=== PATIENT | female | born 1980 | race Two or more races ===

== ENCOUNTER 2020-01-23 09:51 | Outpatient (REF) | payer MEDICAID, OTHER, SELFPAY ==
--- NOTE | 2020-01-23 | XR_ITS ---
EXAMINATION: XR CHEST CLINICAL INFORMATION: Preop. COMPARISON: None TECHNIQUE: 2 views of the chest were obtained. FINDINGS: No significant abnormality is noted involving the heart, lungs, mediastinum, bony thorax or soft tissues. XR/XR chest 2V IMPRESSION: Unremarkable chest exam.
[2020-01-23 10:41] LABS: MANUAL DIFF FLAG NO
--- NOTE | 2020-01-23 10:43 | ECG_ITS ---
Test Reason : PREOP Blood Pressure : / mmHG Vent. Rate : 059 BPM Atrial Rate : 059 BPM P-R Int : 150 ms QRS Dur : 078 ms QT Int : 386 ms P-R-T Axes : -13 066 049 degrees QTc Int : 382 ms Sinus bradycardia with marked sinus arrhythmia Borderline ECG When compared with ECG of 07-FEB-2019 19:54, No significant change was found Referred By: Mauricio Thomson Electronically Signed By:HUGH BIRD MD
[2020-01-23 10:50] LABS: Basophils Percent Auto 0.4 % (0-2); Eosinophils Percent Auto 0.2 % (0-4); Hematocrit 37.6 % (37-47); Hemoglobin 12.8 g/dl (12.0-16.0); Imm Gran Abs Auto 0.01 X10*3/uL (0.00-0.03); Imm Gran Pct Auto 0.2 % (0.0-0.4); Lymphocytes Absolute Auto 2.4 X10*3/uL (1.2-4.9); Lymphocytes Percent Auto 45.8 % (20-40); Mean Corpuscular Hemoglobin 30.4 pg (27.0-33.0); Mean Corpuscular Volume 89.3 fL (80-98); Mean Platelet Volume 9.5 fL (9.4-12.3); Monocytes Absolute Auto 0.3 X10*3/uL (0.1-1.2); Monocytes Percent Auto 6.5 % (2-11); Neutrophils Absolute Auto 2.5 X10*3/uL (2.0-8.3); Neutrophils Percent Auto 46.9 % (45-73); Platelet Count 240 X10*3/uL (160-400); Red Blood Count 4.21 X10*6/uL (4.20-5.50); Red Cell Distribution Width 12.5 % (11.0-16.0); White Blood Count 5.3 X10*3/uL (4.8-10.8)
[2020-01-23 11:03] LABS: Partial Thromboplastin Time 38.7 SEC (24.1-38.0)
[2020-01-23 11:12] LABS: Anion Gap 12 (12-20); Blood Urea Nitrogen 11 mg/dL (9-16); Carbon Dioxide 24 mmol/L (22-29); Chloride 106 mmol/L (96-108); Estimated Glomerular Filt Rate > 60; Glucose Random 100 mg/dL (60-115); Potassium 3.8 mmol/l (3.3-5.1); Sodium 138 mmol/L (135-145)
[2020-01-23 11:34] LABS: SARS COV2 IgG Negative (Negative)
[2020-01-23 11:35] LABS: HIV AB/AG Nonreactive (Nonreactive)
[2020-01-23 11:37] LABS: HCG Quantitative < 2 mIU/mL; T4 Thyroxine 5.8 ug/dL (4.5-12.0); Thyroid Stimulating Hormone 1.69 mIU/mL (0.32-4.0)
[2020-01-24 17:17] LABS: T3 Uptake 34 % (22-35)
== END 2020-01-23 09:52 | disposition home or self-care (01) ==
LOC: HO.LAB 09:51
PROVIDERS: Visit Provider Otolaryngology
DX: Z01.818 Encounter for other preprocedural examination (principal); R00.1 Bradycardia, unspecified
CPT/HCPCS: 36415; 71046; 80048; 84436; 84443; 84479; 84702; 85025; 85610; 85730; 86769; 87389; 93005

== ENCOUNTER 2020-02-14 06:43 | Outpatient (REF) | payer MEDICAID, SELFPAY | END 2020-02-14 06:44 | disposition home or self-care (01) | LOC: HO.LAB 06:43 | PROVIDERS: Visit Provider Internal Medicine | DX: Z20.828 Contact with and (suspected) exposure to other viral communicable diseases (principal) | CPT/HCPCS: C9803; U0003 ==

== ENCOUNTER 2020-07-20 12:52 | Outpatient (REF) | payer MEDICAID, SELFPAY | END 2020-07-20 12:53 | disposition home or self-care (01) | LOC: HO.LAB 12:52 | PROVIDERS: Visit Provider Internal Medicine | DX: Z20.822 Contact with and (suspected) exposure to COVID-19 (principal) | CPT/HCPCS: C9803; U0003; U0005 ==

== ENCOUNTER → 2020-10-02 15:04 | Outpatient (BNVA) | payer MEDICAID, SELFPAY | PROVIDERS: PCP Emergency Medicine; Visit Provider Nurse Practitioner ==

== ENCOUNTER → 2020-11-13 09:17 | Outpatient (BNVA) | payer MEDICAID, SELFPAY | PROVIDERS: PCP Emergency Medicine; Visit Provider Nurse Practitioner ==

== ENCOUNTER → 2020-12-08 12:38 | Outpatient (BNVA) | payer MEDICAID, SELFPAY | PROVIDERS: PCP Emergency Medicine; Referring Provider General Practice; Visit Provider Nurse Practitioner | DX: K58.0 Irritable bowel syndrome with diarrhea (principal); K27.9 Peptic ulcer, site unspecified, unspecified as acute or chronic, without hemorrhage or perforation; K21.9 Gastro-esophageal reflux disease without esophagitis; A04.8 Other specified bacterial intestinal infections; R14.0 Abdominal distension (gaseous) | CPT/HCPCS: 99212 ==

== ENCOUNTER → 2021-01-21 09:46 | Outpatient (BNVA) | payer MEDICAID, SELFPAY | PROVIDERS: PCP Emergency Medicine; Visit Provider Nurse Practitioner ==

== ENCOUNTER 2021-03-02 10:08 | Emergency (ER) | payer OTHER, MEDICAID, SELFPAY ==
[2021-03-02 10:51] VITALS: BP 100/57; PULSE 80; RESP 16; TEMP 36.2; O2SAT 98; BMI 24.7
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
== END 2021-03-02 11:40 | disposition home or self-care (01) ==
PROVIDERS: Emergency Provider Emergency Medicine; PCP General Practice
DX: S40.012A Contusion of left shoulder, initial encounter (principal); S80.02XA Contusion of left knee, initial encounter; V43.62XA Car passenger injured in collision with other type car in traffic accident, initial encounter; Y93.89 Activity, other specified; Y92.414 Local residential or business street as the place of occurrence of the external cause; Y99.9 Unspecified external cause status
CPT/HCPCS: 99283

== ENCOUNTER 2021-03-11 08:09 | Outpatient (REF) | payer MEDICAID, SELFPAY ==
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
== END 2021-03-11 08:10 | disposition home or self-care (01) ==
LOC: HO.XRAY 08:09
PROVIDERS: Absent Provider Internal Medicine Geriatric Medicine; PCP Internal Medicine Geriatric Medicine; Visit Provider Registered Nurse
DX: M25.512 Pain in left shoulder (principal); M54.2 Cervicalgia; V89.2XXS Person injured in unspecified motor-vehicle accident, traffic, sequela
CPT/HCPCS: 72052; 73030

== ENCOUNTER 2021-06-29 16:57 | Emergency (ER) | payer MEDICAID, SELFPAY ==
[2021-06-29 17:26] VITALS: BP 110/66; PULSE 77; RESP 20; TEMP 36.6; O2SAT 100; BMI 25.0
[2021-06-29 17:45] LABS: Appearance Urine CLEAR; Color Urine YELLOW; Glucose Urine UA NEG (NEG); Leukocyte Esterase Urine NEG (NEG); Nitrite Urine NEG (NEG); Specific Gravity - Urine 1.025 (1.005-1.025); UACC Culture Trigger NO; Urine Blood TRACE (NEG); Urine Ketones NEG (NEG); Urine Protein NEG (NEG-TRACE)
[2021-06-29 17:46] LABS: UPreg QC Valid YES; Urine Pregnancy NEGATIVE (NEGATIVE)
[2021-06-29 17:47] LABS: Hematocrit 37.8 % (37.0-47.0); Hemoglobin 12.8 g/dl (12.0-16.0); Mean Corpuscular HGB Conc 33.9 g/dl (31.0-35.0); Mean Corpuscular Hemoglobin 30.3 pg (27.0-33.0); Mean Corpuscular Volume 89.6 fL (80.0-98.0); Platelet Count 224 X10*3/uL (160-400); Red Blood Count 4.22 X10*6/uL (4.20-5.50); Red Cell Distribution Width 12.1 % (11.0-16.0); White Blood Count 4.4 X10*3/uL (4.8-10.8)
[2021-06-29 18:01] LABS: Calcium Oxalate Crystals Urine TRACE /LPF; Mucus Urine 2+ /LPF; RBC Urine 0-2 /HPF (0); Squamous Epithelial Cell Urine 2+ /LPF; WBC Urine 0-2 /HPF (0-4)
[2021-06-29 18:11] LABS: Anion Gap 9 (12-20); Blood Urea Nitrogen 13 mg/dL (9-16); Calcium 8.9 mg/dL (8.4-10.2); Carbon Dioxide 27 mmol/L (22-29); Chloride 107 mmol/L (96-108); Estimated Glomerular Filt Rate > 60; Glucose Random 92 mg/dL (60-115); Lipase 10 U/L (8-78); Sodium 139 mmol/L (135-145)
[2021-06-29 20:54] VITALS: BP 110/72; PULSE 67; RESP 20; TEMP 36.9; O2SAT 98
--- NOTE | 2021-06-29 20:58 | ED_ITS ---
HPI - Abdominal Pain General Chief Complaint: Abdominal Pain Stated Complaint: diarrhea/nausea/abd pain Time Seen by Provider: 06/29/21 20:58 Source: patient Mode of arrival: ambulatory Limitations: no limitations History of Present Illness HPI narrative: Patient history of bipolar disorder complaining of nausea vomiting diarrhea since yesterday at multiple times of diarrhea for 6-7 times and same number today with nausea diffuse abdominal pain no fever no chills no blood in the stool no other family member sick patient was seen at a medical office COVID test was negative Related Data Previous Rx's Medication Instructions Recorded ibuprofen 800 mg tablet 800 mg PO Q8H PRN #20 tab 03/02/21 alosetron 0.5 mg tablet 0.5 mg PO DAILY #30 tab 03/31/21 pantoprazole 40 mg tablet,delayed 40 mg PO BID #60 tab 06/16/21 release loperamide 2 mg capsule (Imodium 2 mg PO Q6H PRN #14 cap 06/29/21 A-D) ondansetron 4 mg disintegrating 4 mg PO Q6-8H PRN #7 tab 06/29/21 tablet Allergies Allergy/AdvReac Type Severity Reaction Status Date / Time shellfish derived Allergy Unknown swelling Verified 01/21/21 09:48 [SHELLFISH DERIVED] Review of Systems Review of Systems Yes all other systems are reviewed and are negative PMFSH Past Medical History Medical History Constipation Diarrhea Surgical History H/O colonoscopy History of section History of tubal ligation Social History Social History Alcohol intake: never Patient Tobacco Use Status: Never used Tobacco Advance Directives: No Patient : No Physical Exam ED Vital Signs: Vital Signs - 24 hr 06/29/21 17:26 06/29/21 20:54 Temperature 97.9 F 98.4 F Pulse Rate 77 67 Respiratory Rate 20 20 Blood Pressure 110/66 110/72 Pulse Oximetry 100 98 BMI result Body Mass Index 25.0 Appearance: Alert. Oriented X3. No acute distress. Eyes: No pallor or icterus ENT: Pharynx normal. Oral Mucosa moist Neck: Normal inspection. Neck supple. CVS: Normal heart rate and rhythm. Pulses normal. Respiratory: No respiratory distress. Equal air entry bilateral, no wheezing/rales/rhonchi Abdomen: Soft mild diffuse tenderness no rebound tenderness or guarding Bowel sounds are present, no mass palpable, no CVA tenderness Skin: Skin warm and dry. Normal skin color. Normal skin turgor. Extremities: No lower extremity edema. No calf tenderness Neuro: Oriented X 3. MDM - Abdominal Pain Lab Data Result diagrams: 06/29/21 17:38 06/29/21 17:38 Labs: Lab Results 06/29/21 06/29/21 06/29/21 Range/Units 17:38 17:38 17:38 WBC 4.4 L (4.8-10.8) X10*3/uL RBC 4.22 (4.20-5.50) X10*6/uL Hgb 12.8 (12.0-16.0) g/dl Hct 37.8 (37.0-47.0) % MCV 89.6 (80.0-98.0) fL MCH 30.3 (27.0-33.0) pg MCHC 33.9 (31.0-35.0) g/dl RDW 12.1 (11.0-16.0) % Plt Count 224 (160-400) X10*3/uL MPV 9.0 L (9.4-12.3) fL Absolute Nucleated RBC 0.000 (0.0-0.012) X10*3/uL Nucleated RBC % (auto) 0.0 (0.0-0.2) /100WBC Sodium 139 (135-145) mmol/L Potassium 4.0 (3.3-5.1) mmol/L Chloride 107 (96-108) mmol/L Carbon Dioxide 27 (22-29) mmol/L Anion Gap 9 L (12-20) BUN 13 (9-16) mg/dL Creatinine 0.85 (0.5-1.4) mg/dL Estim Creat Clear Calc 84.0 Estimated GFR > 60 Random Glucose 92 (60-115) mg/dL Calcium 8.9 (8.4-10.2) mg/dL Lipase 10 (8-78) U/L Urine Color YELLOW Urine Appearance CLEAR Urine pH 6.0 (5.0-8.0) Ur Specific [place] 1.025 (1.005-1.025) Urine Protein NEG (NEG-TRACE) MG/DL Urine Glucose (UA) NEG (NEG) MG/DL Urine Ketones NEG (NEG) MG/DL Urine Blood TRACE (NEG) Urine Nitrite NEG (NEG) Ur Leukocyte Esterase NEG (NEG) Urine RBC 0-2 (0) /HPF Urine WBC 0-2 (0-4) /HPF Ur Squamous Epith Cells 2+ /LPF Calcium Oxalate Crystal TRACE /LPF Urine Bacteria NONE /LPF Urine Mucus 2+ /LPF Urine Test (NEGATIVE) 06/29/21 Range/Units 17:38 WBC (4.8-10.8) X10*3/uL RBC (4.20-5.50) X10*6/uL Hgb (12.0-16.0) g/dl Hct (37.0-47.0) % MCV (80.0-98.0) fL MCH (27.0-33.0) pg MCHC (31.0-35.0) g/dl RDW (11.0-16.0) % Plt Count (160-400) X10*3/uL MPV (9.4-12.3) fL Absolute Nucleated RBC (0.0-0.012) X10*3/uL Nucleated RBC % (auto) (0.0-0.2) /100WBC Sodium (135-145) mmol/L Potassium (3.3-5.1) mmol/L Chloride (96-108) mmol/L Carbon Dioxide (22-29) mmol/L Anion Gap (12-20) BUN (9-16) mg/dL Creatinine (0.5-1.4) mg/dL Estim Creat Clear Calc Estimated GFR Random Glucose (60-115) mg/dL Calcium (8.4-10.2) mg/dL Lipase (8-78) U/L Urine Color Urine Appearance Urine pH (5.0-8.0) Ur Specific [place] (1.005-1.025) Urine Protein (NEG-TRACE) MG/DL Urine Glucose (UA) (NEG) MG/DL Urine Ketones (NEG) MG/DL Urine Blood (NEG) Urine Nitrite (NEG) Ur Leukocyte Esterase (NEG) Urine RBC (0) /HPF Urine WBC (0-4) /HPF Ur Squamous Epith Cells /LPF Calcium Oxalate Crystal /LPF Urine Bacteria /LPF Urine Mucus /LPF Urine Test NEGATIVE (NEGATIVE) Discharge Plan Discharge Clinical Impression: Gastroenteritis Patient Disposition: Home, Self-Care Instructions: Gastroenteritis (ED) Additional Instructions: Drink plenty of fluids Medication for nausea and diarrhea as prescribed Follow with PCP if not better Prescriptions: New ondansetron 4 mg tablet,disintegrating 4 mg PO Q6-8H PRN (Reason: nausea and vomiting) Qty: 7 0RF loperamide [Imodium A-D] 2 mg capsule 2 mg PO Q6H PRN (Reason: loose stool) Qty: 14 0RF No Action alosetron 0.5 mg tablet 0.5 mg PO DAILY Qty: 30 3RF pantoprazole 40 mg tablet,delayed release (DR/EC) 40 mg PO BID Qty: 60 2RF ibuprofen 800 mg tablet 800 mg PO Q8H PRN (Reason: pain) Qty: 20 0RF Interventions: ED Discharge Assessment Last Done: 06/29/21 23:20 Discharge Date/Time: 06/29/21 23:21
[2021-06-29] MEDS: Ondansetron ODT 4 MG TAB.RAPDIS TRANSLINGU (21:09)
[2021-06-29] MEDS: Loperamide HCl 2 MG CAPSULE PO ×2 (21:10→22:30)
--- NOTE | 2021-06-29 22:11 | PC.NURSE ---
patient reports ongoing diarrhea at this time after meds. patient meds were given approx 1 hr ago
== END 2021-06-29 23:21 | disposition home or self-care (01) ==
PROVIDERS: Emergency Provider Internal Medicine; PCP General Practice
DX: K52.9 Noninfective gastroenteritis and colitis, unspecified (principal); R10.9 Unspecified abdominal pain; R11.2 Nausea with vomiting, unspecified; Z79.899 Other long term (current) drug therapy
CPT/HCPCS: 36415; 80048; 81001; 81025; 83690; 85027; 99283; 99284

== ENCOUNTER 2021-07-21 12:49 | Outpatient (REF) | payer OTHER, MEDICAID, SELFPAY ==
--- NOTE | ~2021-07-21 | MR_ITS ---
EXAMINATION: MR BRAIN WITHOUT AND WITH CONTRAST CLINICAL INFORMATION: Migraines. COMPARISON: Head CT dated 09/08/2019. TECHNIQUE: Multiplanar, multisequence imaging of the brain was performed before and after the intravenous administration of 8 mL of Gadavist. FINDINGS: No diffusion abnormalities are identified to suggest an acute or subacute infarct. The ventricles are normal in size. No mass effect or midline shift is seen. No brain parenchymal signal abnormality is noted. No extra-axial fluid collections are seen. The brainstem and cerebellum are normal. On postcontrast imaging, there is no abnormal parenchymal or leptomeningeal enhancement. The gradient refocused acquisition demonstrates no pathologic magnetic susceptibility artifact to indicate underlying acute or chronic blood products. The craniovertebral junction, marrow signal, and midline structures are normal. The major intracranial flow voids at the level of the [place] of [place] are preserved. The dural venous sinus flow voids are maintained. The mastoid air cells are well aerated. Very mild ethmoid sinus mucosal thickening noted. MR/MR head/brain wo/w con IMPRESSION: Normal MRI of the brain. No acute process.
== END 2021-07-21 12:50 | disposition home or self-care (01) ==
LOC: HO.MRI 12:49
PROVIDERS: Visit Provider Psychiatry & Neurology Neurology
DX: G43.009 Migraine without aura, not intractable, without status migrainosus (principal); G93.9 Disorder of brain, unspecified
CPT/HCPCS: 70553; A9585

== ENCOUNTER 2021-12-24 09:16 | Emergency (ER) | payer MEDICAID, SELFPAY ==
--- NOTE | ~2021-12-24 | CT_ITS ---
EXAMINATION: CT ABDOMEN AND PELVIS WITHOUT CONTRAST CLINICAL INFORMATION: Bilateral flank pain and urinary symptoms COMPARISON: CT abdomen and pelvis 12/24/2019 TECHNIQUE: Multidetector volumetric imaging was performed from the superior aspect of the liver through the pubic symphysis. Sagittal and coronal reformatted images were obtained on the technologist's workstation. This CT examination was performed using dose optimization techniques as appropriate, variously including the following: *Automated exposure control *Adjustment of mA and/or kV according to patient size (this includes techniques or standardized protocols for targeted exams where dose is matched to indication/reason for exam; i.e. extremities or head) *Use of iterative reconstruction technique DLP: 486 mGy-cm FINDINGS: LUNG BASES: Grossly clear. Prominent respiratory motion artifact. LIVER, GALLBLADDER, AND BILIARY TREE: The liver is normal in size, shape, and attenuation. No focal hepatic lesion or biliary ductal dilatation is present. The gallbladder is unremarkable with no evidence of radiopaque gallstones, gallbladder wall thickening, or obvious pericholecystic inflammatory changes. PANCREAS: Unremarkable. SPLEEN: Normal size. No splenic lesion. A couple small splenule, largest 1.3 cm in size noted. ADRENAL GLANDS: Unremarkable. KIDNEYS AND URETERS: The kidneys are normal in size, shape, and attenuation. No hydronephrosis, hydroureter, or calculi seen. No perinephric stranding. BLADDER: Slightly diffusely thick-walled appearance likely due to limited distention. No surrounding inflammatory change. No bladder stones or focal bladder wall thickening. GASTROINTESTINAL TRACT: The small and large bowel are unremarkable. The appendix is unremarkable. ABDOMINAL WALL: No significant hernia is appreciated. Mild linear probable scar tissue in the subcutaneous fat about the abdominal wall and flank. Correlate with history of prior plastic surgery. LYMPH NODES: No lymphadenopathy. VASCULAR: Normal caliber abdominal aorta. PELVIC VISCERA: IUD appears properly positioned in the uterus. Gynecologic structures otherwise grossly unremarkable. OSSEOUS STRUCTURES: No acute fracture or suspicious osseous lesion. CT/CT abdomen pelvis wo IV con IMPRESSION: 1. No acute intra-abdominal process identified. No radiodense renal calculi or hydronephrosis.
[2021-12-24 10:07] VITALS: BP 113/70; PULSE 87; RESP 18; TEMP 36.4; O2SAT 97; BMI 25.5
[2021-12-24 10:23] LABS: Appearance Urine Cloudy; Color Urine Yellow; Glucose Urine UA Negative (Negative); Leukocyte Esterase Urine Large (3+) (Negative); Nitrite Urine Negative (Negative); PH 6.5 (5.0-9.0); Specific Gravity - Urine 1.015 (1.005-1.025); UMIC TRIGGER UACC YES; Urine Blood Moderate (2+) (Negative); Urine Ketones Negative (Negative); Urine Protein Trace mg/dL (Neg-Trace)
[2021-12-24 10:29] LABS: Bacteria Urine 1+ (None Seen); Hyaline Casts Urine 0-2 /LPF (0-2); RBC Urine >20 /HPF (0-2); Squamous Epithelial Cell Urine 0-2 /HPF (0-2); UACC Culture Trigger YES; WBC Urine >50 /HPF (0-5)
--- NOTE | 2021-12-24 12:26 | PC.NURSE ---
Pt reports being frustrated with triage process and LWT. Pt advised to remain in ER for symptoms evaluation. Pt ambulated to exit with steady gait.
[2021-12-24 15:25] VITALS: BP 109/66; PULSE 77; RESP 16; TEMP 36.4; O2SAT 100
--- NOTE | 2021-12-24 17:16 | ED.GENADULT ---
HPI - General Adult General Chief complaint: Abdominal Pain Stated complaint: body aches/pain while urinating/lower back pain Time Seen by Provider: 12/24/21 17:06 Source: patient and RN notes reviewed Mode of arrival: ambulatory Limitations: no limitations History of Present Illness HPI narrative: 41-year-old female with a PMHx of chronic low back pain, athma, IBS, PUD, GERD, and bipolar disorder, presenting to the ED with bilateral flank pain and lower abdominal pain x2 days. Patient tells me that pain has been progressing throughout the past 2 days. She reports that she has chronic back pain that at times feels like this. She also tells me that she thinks she has had kidney stones in the past. She reports that when she pees there is a burning sensation in her urine has been cloudy. Patient denies fevers, chills, chest pain, shortness of breath, headache, dizziness, vision changes. Related Data Previous Rx's Medication Instructions Recorded ibuprofen 800 mg tablet 800 mg PO Q8H PRN pain #20 tabs 03/02/21 alosetron 0.5 mg tablet 0.5 mg PO DAILY #30 tabs 03/31/21 pantoprazole 40 mg tablet,delayed 40 mg PO BID #60 tabs 06/16/21 release loperamide 2 mg capsule (Imodium 2 mg PO Q6H PRN loose stool #14 06/29/21 A-D) caps ondansetron 4 mg disintegrating 4 mg PO Q6-8H PRN nausea and 06/29/21 tablet vomiting #7 tabs cefuroxime axetil 250 mg tablet 250 mg PO BID 7 days #14 tabs 12/24/21 Allergies Allergy/AdvReac Type Severity Reaction Status Date / Time shellfish derived Allergy Unknown swelling Verified 01/21/21 09:48 [SHELLFISH DERIVED] Review of Systems Review of Systems: Constitutional : No Weight loss, No Fever, No Chills, No Fatigue, No Malaise ENT/Mouth : No sore throat, No Rhinorrhea Eyes: No Eye Pain, No Swelling, No Redness Cardiovascular : No Chest Pain, No SOB, No Dyspnea on Exertion, No Orthopnea, No Edema, No Palpitations Respiratory : No Cough, No Sputum, No Wheezing Gastrointestinal : No Nausea, No Vomiting, No Diarrhea, No Constipation, + abdominal Pain, +bilateral flank pain, No Hematochezia, No Melena Genitourinary : No Dysuria, No Urinary Frequency, + Hematuria, Musculoskeletal : No joint pain, No Myalgias, No Joint Swelling Skin : No Skin Lesions, No rash Neuro : No Weakness, No Numbness, No Dizziness, No Headache Psych : No Anxiety/Panic, No Depression Heme/Lymph: No Bruising, No Bleeding,No Lymphadenopathy Endocrine : No Polyuria, No Polydipsia All other systems reviewed and are negative Yes all other systems are reviewed and are negative [facility] Past Medical History Attestation statement: The following information was validated with the patient. Source: old records reviewed and nursing notes reviewed Medical History Constipation Diarrhea Surgical History H/O colonoscopy History of section History of tubal ligation Social History Social History Alcohol intake: never Patient Tobacco Use Status: Never used Tobacco Advance Directives: No Advance Directives Information Provided: No Patient : No Physical Exam ED Vital Signs: Vital Signs - 24 hr 12/24/21 10:07 12/24/21 15:25 Temperature 97.6 F 97.6 F Pulse Rate 87 77 Respiratory Rate 18 16 Blood Pressure 113/70 109/66 Pulse Oximetry 97 100 Oxygen Delivery Method Room Air Room Air BMI result Body Mass Index 25.5 VSS Appearance: Alert.? Oriented X3.? No acute distress.? Head: Normocephalic, atraumatic, no step-offs or deformities Eyes: Pupils equal, round and reactive to light.? Neck: Normal inspection.? Neck supple.? CVS: Normal heart rate and rhythm.? Pulses normal.? Respiratory: No respiratory distress.? Breath sounds normal.? Abdomen: Soft and mild right lower abdominal tenderness. +BS.? Skin: Skin warm and dry.? Normal skin color.? Normal skin turgor.? Extremities: No lower extremity edema.? No calf ttp. 5/5 strength to bilateral upper and lower extremities Back: No midline tenderness, no C-spine tenderness, full range of motion, mild CVA tenderness bilaterally Neuro: Oriented X 3.? No motor deficit.? No sensory deficit. CN 2-12 intact Course Reevaluation(s) Reevaluation #1: CBC within normal limits. Chemistry with no acute findings. Serum HCG negative. Urine with blood and white blood cells. Scan pending. Patient appears well smoking her vape. Time: 18:07 Reevaluation #2: CT of the abdomen pelvis no acute findings. Normal appendix, kidneys are normal in size, no hydronephrosis, no renal stones. At this time likely diagnosis is UTI versus cystitis. Patient will be sent home with antibiotics. Advised to return with new or worsening symptoms, outlined worrisome signs and symptoms on discharge. At time of discharge patient's pain improved, no longer tender upon examination, tolerating p.o.. Comfortable discharge home with prompt PCP follow-up and follow-up with urology if necessary. It is also possible that patient passed a stone. However no stones visualized on CT at this time. Time: 19:41 Medical Decision Making MDM Narrative Medical decision making narrative: 17:15 41 y/o F with a PMHx of chronic low back pain, athma, IBS, PUD, GERD, and bipolar disorder, presenting with 2 days of lower abdominal pain and bilateral flank pain. PE remarkable for mild bilateral flank tenderness and lower abdominal tenderness. No signs of acute abdomen. Suspect nephrolithiasis vs. pyelonephritis vs. UTI. Other differentials include exacerbation of chornic back pain. Unlikely acute abdominal pathology, ovarian torsion. No signs of cauda equina or epidural abscess. Plan to obtain basic labs, UA, urine , CT abd/pelvis. Medical Records Medical records reviewed: Yes I reviewed the patient's medical records. Lab Data Lab results reviewed: Yes I reviewed the patient's lab results. Result diagrams: 12/24/21 17:32 12/24/21 17:32 Labs: Lab Results 12/24/21 12/24/21 12/24/21 Range/Units 10:11 17:32 17:32 WBC 7.1 (4.8-10.8) X10*3/uL RBC 4.51 (4.20-5.50) X10*6/uL Hgb 13.7 (12.0-16.0) g/dl Hct 39.7 (37.0-47.0) % MCV 88.0 (80.0-98.0) fL MCH 30.4 (27.0-33.0) pg MCHC 34.5 (31.0-35.0) g/dl RDW 12.5 (11.0-16.0) % Plt Count 253 (160-400) X10*3/uL MPV 9.4 (9.4-12.3) fL Immature Gran % (Auto) 0.6 H (0.0-0.4) % Neut % (Auto) 55.5 (45-73) % Lymph % (Auto) 37.4 (20-40) % [place] % (Auto) 5.8 (2-11) % Eos % (Auto) 0.3 (0-4) % Baso % (Auto) 0.4 (0-2) % Lymph # (Auto) 2.7 (1.2-4.9) X10*3/uL [place] # (Auto) 0.4 (0.1-1.2) X10*3/uL Eos # (Auto) 0.0 (0.0-0.4) X10*3/uL Baso # (Auto) 0.0 (0.0-0.2) X10*3/uL Abs Immat Gran (auto) 0.04 H (0.00-0.03) X10*3/uL Absolute Neuts (auto) 4.0 (2.0-8.3) x10*3/uL Absolute Nucleated RBC 0.000 (0.0-0.012) X10*3/uL Nucleated RBC % (auto) 0.0 (0.0-0.2) /100WBC Sodium 143 (135-145) mmol/L Potassium 3.8 (3.3-5.1) mmol/L Chloride 108 (96-108) mmol/L Carbon Dioxide 24 (22-29) mmol/L Anion Gap 15 (12-20) BUN 14 (9-16) mg/dL Creatinine 0.88 (0.5-1.4) mg/dL Estim Creat Clear Calc 90.1 Estimated GFR > 60 Random Glucose 96 (60-115) mg/dL Calcium 9.3 (8.4-10.2) mg/dL Magnesium 1.8 (1.6-2.6) mg/dL Total Bilirubin 0.5 (0.0-1.0) mg/dL AST 27 (5-31) U/L ALT 34 H (0-31) U/L Alkaline Phosphatase 78 (39-117) U/L Total Protein 7.7 (6.5-8.0) g/dL Albumin 4.6 (3.5-5.0) g/dL Beta HCG, Quant mIU/mL Urine Color Yellow Urine Appearance Cloudy Urine pH 6.5 (5.0-9.0) Ur Specific [place] 1.015 (1.005-1.025) Urine Protein Trace (Neg-Trace) mg/dL Urine Glucose (UA) Negative (Negative) mg/dL Urine Ketones Negative (Negative) mg/dL Urine Blood Moderate (2+) H (Negative) Urine Nitrite Negative (Negative) Ur Leukocyte Esterase Large (3+) H (Negative) Urine RBC >20 H (0-2) /HPF Urine WBC >50 H (0-5) /HPF Ur Squamous Epith Cells 0-2 (0-2) /HPF Urine Bacteria 1+ (None Seen) Hyaline Casts 0-2 (0-2) /LPF 12/24/21 Range/Units 17:32 WBC (4.8-10.8) X10*3/uL RBC (4.20-5.50) X10*6/uL Hgb (12.0-16.0) g/dl Hct (37.0-47.0) % MCV (80.0-98.0) fL MCH (27.0-33.0) pg MCHC (31.0-35.0) g/dl RDW (11.0-16.0) % Plt Count (160-400) X10*3/uL MPV (9.4-12.3) fL Immature Gran % (Auto) (0.0-0.4) % Neut % (Auto) (45-73) % Lymph % (Auto) (20-40) % [place] % (Auto) (2-11) % Eos % (Auto) (0-4) % Baso % (Auto) (0-2) % Lymph # (Auto) (1.2-4.9) X10*3/uL [place] # (Auto) (0.1-1.2) X10*3/uL Eos # (Auto) (0.0-0.4) X10*3/uL Baso # (Auto) (0.0-0.2) X10*3/uL Abs Immat Gran (auto) (0.00-0.03) X10*3/uL Absolute Neuts (auto) (2.0-8.3) x10*3/uL Absolute Nucleated RBC (0.0-0.012) X10*3/uL Nucleated RBC % (auto) (0.0-0.2) /100WBC Sodium (135-145) mmol/L Potassium (3.3-5.1) mmol/L Chloride (96-108) mmol/L Carbon Dioxide (22-29) mmol/L Anion Gap (12-20) BUN (9-16) mg/dL Creatinine (0.5-1.4) mg/dL Estim Creat Clear Calc Estimated GFR Random Glucose (60-115) mg/dL Calcium (8.4-10.2) mg/dL Magnesium (1.6-2.6) mg/dL Total Bilirubin (0.0-1.0) mg/dL AST (5-31) U/L ALT (0-31) U/L Alkaline Phosphatase (39-117) U/L Total Protein (6.5-8.0) g/dL Albumin (3.5-5.0) g/dL Beta HCG, Quant < 2 mIU/mL Urine Color Urine Appearance Urine pH (5.0-9.0) Ur Specific [place] (1.005-1.025) Urine Protein (Neg-Trace) mg/dL Urine Glucose (UA) (Negative) mg/dL Urine Ketones (Negative) mg/dL Urine Blood (Negative) Urine Nitrite (Negative) Ur Leukocyte Esterase (Negative) Urine RBC (0-2) /HPF Urine WBC (0-5) /HPF Ur Squamous Epith Cells (0-2) /HPF Urine Bacteria (None Seen) Hyaline Casts (0-2) /LPF Critical Care Time Critical Care Time Critical Care Time: No Discharge Plan Discharge Clinical Impression: UTI (urinary tract infection), Acute flank pain, Hematuria, Cystitis Patient Disposition: Home, Self-Care Instructions: Urinary Tract Infection in Women (ED), Hematuria (ED) Additional Instructions: Take your medications as prescribed. If you were prescribed antibiotics today, it is important that you take your medication to their entirety, do not skip any doses, do not finish them early. Follow-up with your primary care provider this week. Follow-up with urology if symptoms persist. Return to the emergency department with new or worsening symptoms. Such as fevers, chills, chest pain, shortness of breath, nausea, vomiting, dizziness, headache, vision changes, lethargy In case of emergency call 911 You can take ibuprofen every 6 hours, Tylenol every 4 as needed for pain or discomfort Prescriptions: New cefuroxime axetil 250 mg tablet 250 mg PO BID 7 Days Qty: 14 0RF No Action alosetron 0.5 mg tablet 0.5 mg PO DAILY Qty: 30 3RF pantoprazole 40 mg tablet,delayed release (DR/EC) 40 mg PO BID Qty: 60 2RF ibuprofen 800 mg tablet 800 mg PO Q8H PRN (Reason: pain) Qty: 20 0RF ondansetron 4 mg tablet,disintegrating 4 mg PO Q6-8H PRN (Reason: nausea and vomiting) Qty: 7 0RF loperamide [Imodium A-D] 2 mg capsule 2 mg PO Q6H PRN (Reason: loose stool) Qty: 14 0RF Referrals: Alvino Sanchez MD [Physician] - 3 days Physician,Juana J [Primary Care Provider] - 2 days Interventions: LWBS Worksheet Last Done: 12/24/21 12:31
[2021-12-24 17:39] LABS: MANUAL DIFF FLAG NO
[2021-12-24] MEDS: Ketorolac Tromethamine 15 MG/ML VIAL IVPUSH (17:53)
[2021-12-24 17:55] LABS: Alanine Aminotransferase 34 U/L (0-31); Albumin Level 4.6 g/dL (3.5-5.0); Alkaline Phosphatase 78 U/L (39-117); Anion Gap 15 (12-20); Aspartate Amino Transferase 27 U/L (5-31); Bilirubin Total 0.5 mg/dL (0.0-1.0); Blood Urea Nitrogen 14 mg/dL (9-16); Calcium 9.3 mg/dL (8.4-10.2); Carbon Dioxide 24 mmol/L (22-29); Chloride 108 mmol/L (96-108); Creatinine Clr Calc Pharmacy 90.1; Estimated Glomerular Filt Rate > 60; Glucose Random 96 mg/dL (60-115); Magnesium 1.8 mg/dL (1.6-2.6); Potassium 3.8 mmol/L (3.3-5.1); Sodium 143 mmol/L (135-145); Total Protein 7.7 g/dL (6.5-8.0)
[2021-12-24 18:01] LABS: Basophils Percent Auto 0.4 % (0-2); Eosinophils Percent Auto 0.3 % (0-4); Hematocrit 39.7 % (37.0-47.0); Hemoglobin 13.7 g/dl (12.0-16.0); Imm Gran Abs Auto 0.04 X10*3/uL (0.00-0.03); Imm Gran Pct Auto 0.6 % (0.0-0.4); Lymphocytes Absolute Auto 2.7 X10*3/uL (1.2-4.9); Lymphocytes Percent Auto 37.4 % (20-40); Mean Corpuscular HGB Conc 34.5 g/dl (31.0-35.0); Mean Corpuscular Hemoglobin 30.4 pg (27.0-33.0); Mean Platelet Volume 9.4 fL (9.4-12.3); Monocytes Absolute Auto 0.4 X10*3/uL (0.1-1.2); Monocytes Percent Auto 5.8 % (2-11); Neutrophils Percent Auto 55.5 % (45-73); Platelet Count 253 X10*3/uL (160-400); Red Blood Count 4.51 X10*6/uL (4.20-5.50); Red Cell Distribution Width 12.5 % (11.0-16.0); White Blood Count 7.1 X10*3/uL (4.8-10.8)
[2021-12-24 18:02] LABS: HCG Quantitative < 2 mIU/mL
[2021-12-24] MEDS: Morphine Sulfate Immed Release 15 MG TABLET PO (20:07)
== END 2021-12-24 20:11 | disposition home or self-care (01) ==
PROVIDERS: Physician Assistant; Emergency Provider Student in an Organized Health Care Education/Training Program
DX: N30.01 Acute cystitis with hematuria (principal); B95.7 Other staphylococcus as the cause of diseases classified elsewhere; R10.9 Unspecified abdominal pain
CPT/HCPCS: 36415; 74176; 80053; 81001; 83735; 84702; 85025; 87086; 87088; 87186; 96374; 99284; 99285; J1885

== ENCOUNTER 2021-12-30 09:57 | Outpatient (REF) | payer MEDICAID, SELFPAY ==
[2021-12-30 13:57] LABS: CDiff Gene PCR POSITIVE (Negative)
[2021-12-30 14:25] LABS: Campylobacter Not Detected (Not Detect.); Plesiomonas shigelloides Not Detected (Not Detect.); Salmonella Not Detected (Not Detect.)
[2021-12-30 14:26] LABS: Adenovirus F 40/41 Not Detected (Not Detect.); Astrovirus Not Detected (Not Detect.); Cryptosporidium Not Detected (Not Detect.); Cyclospora cayetanensis Not Detected (Not Detect.); E. coli EAEC Not Detected (Not Detect.); E. coli EPEC Not Detected (Not Detect.); E. coli ETEC Not Detected (Not Detect.); E. coli STEC Not Detected (Not Detect.); Entamoeba histolytica Not Detected (Not Detect.); Giardia lamblia Not Detected (Not Detect.); Norovirus GI/GII Not Detected (Not Detect.); Rotavirus A Not Detected (Not Detect.); Sapovirus Not Detected (Not Detect.); Shigella sp./EIEC Not Detected (Not Detect.); Vibrio Not Detected (Not Detect.); Vibrio Cholerae Not Detected (Not Detect.); Yersinia enterocolitica Not Detected (Not Detect.)
[2021-12-30 16:27] LABS: CDIFF Internal ctrl Dots and bkg OK (V); CDiff Toxin Negative (Negative)
== END 2021-12-30 09:58 | disposition home or self-care (01) ==
LOC: HO.LAB 09:57
PROVIDERS: PCP General Practice; Visit Provider Nurse Practitioner
DX: R10.9 Unspecified abdominal pain (principal); R19.7 Diarrhea, unspecified
CPT/HCPCS: 36415; 86003; 87324; 87338; 87493; 87507; 99212

== ENCOUNTER → 2022-01-06 11:46 | Outpatient (BNVA) | payer MEDICAID, SELFPAY | PROVIDERS: PCP General Practice; Referring Provider General Practice; Visit Provider Nurse Practitioner | DX: A04.72 Enterocolitis due to Clostridium difficile, not specified as recurrent (principal); R19.7 Diarrhea, unspecified | CPT/HCPCS: 99212 ==

== ENCOUNTER 2022-02-02 12:59 | Outpatient (REF) | payer MEDICAID, SELFPAY ==
[2022-02-02 15:21] LABS: CDiff Gene PCR POSITIVE (Negative)
[2022-02-02 17:21] LABS: CDIFF Internal ctrl Dots and bkg OK (V)
[2022-02-02 17:55] LABS: CDiff Toxin Positive (Negative)
== END 2022-02-02 13:00 | disposition home or self-care (01) ==
LOC: HO.LAB 12:59
PROVIDERS: PCP General Practice; Visit Provider Nurse Practitioner
DX: A04.72 Enterocolitis due to Clostridium difficile, not specified as recurrent (principal)
CPT/HCPCS: 87324; 87493; 87507; 99212

== ENCOUNTER 2022-02-03 14:53 | Outpatient (REF) | payer MEDICAID, SELFPAY ==
[2022-02-04 07:19] LABS: Campylobacter Not Detected (Not Detect.); E. coli EAEC Not Detected (Not Detect.); Plesiomonas shigelloides Not Detected (Not Detect.); Salmonella Not Detected (Not Detect.); Vibrio Not Detected (Not Detect.); Vibrio Cholerae Not Detected (Not Detect.); Yersinia enterocolitica Not Detected (Not Detect.)
[2022-02-04 07:20] LABS: Adenovirus F 40/41 Not Detected (Not Detect.); Astrovirus Not Detected (Not Detect.); Cryptosporidium Not Detected (Not Detect.); Cyclospora cayetanensis Not Detected (Not Detect.); E. coli EPEC Not Detected (Not Detect.); E. coli ETEC Not Detected (Not Detect.); E. coli STEC Not Detected (Not Detect.); Entamoeba histolytica Not Detected (Not Detect.); Giardia lamblia Not Detected (Not Detect.); Norovirus GI/GII Not Detected (Not Detect.); Rotavirus A Not Detected (Not Detect.); Sapovirus Not Detected (Not Detect.); Shigella sp./EIEC Not Detected (Not Detect.)
== END 2022-02-03 14:54 | disposition home or self-care (01) ==
LOC: HO.LNP 14:53
PROVIDERS: Visit Provider Nurse Practitioner
DX: A04.72 Enterocolitis due to Clostridium difficile, not specified as recurrent (principal)
CPT/HCPCS: 87507

== ENCOUNTER 2022-03-15 16:07 | Emergency (ER) | payer MEDICAID, SELFPAY ==
--- NOTE | ~2022-03-15 | CT_ITS ---
EXAMINATION: CT ABDOMEN AND PELVIS WITHOUT CONTRAST CLINICAL INFORMATION: Vomiting. Diarrhea. COMPARISON: CT abdomen pelvis 12/24/2021, 12/24/2019 TECHNIQUE: Multidetector volumetric imaging was performed from the superior aspect of the liver through the pubic symphysis. Sagittal and coronal reformatted images were obtained on the technologist's workstation. This CT examination was performed using dose optimization techniques as appropriate, variously including the following: *Automated exposure control *Adjustment of mA and/or kV according to patient size (this includes techniques or standardized protocols for targeted exams where dose is matched to indication/reason for exam; i.e. extremities or head) *Use of iterative reconstruction technique DLP: 478 mGy-cm FINDINGS: LUNG BASES: The visualized lung bases are unremarkable. LIVER, GALLBLADDER, AND BILIARY TREE: The liver is normal in size, shape, and attenuation. No focal hepatic lesion or biliary ductal dilatation is present. The gallbladder is unremarkable with no evidence of radiopaque gallstones, gallbladder wall thickening, or obvious pericholecystic inflammatory changes. PANCREAS: Unremarkable. SPLEEN: Unremarkable. ADRENAL GLANDS: Unremarkable. KIDNEYS AND URETERS: The kidneys are normal in size, shape, and attenuation. No hydronephrosis, hydroureter, or calculi seen. No perinephric stranding. BLADDER: Unremarkable. GASTROINTESTINAL TRACT: The small and large bowel are unremarkable. The appendix is nonvisualized. There are no inflammatory changes of the mesentery.. ABDOMINAL WALL: No significant hernia is appreciated. LYMPH NODES: Normal. VASCULAR: Unremarkable. PELVIC VISCERA: Uterus is anteverted. IUD in endometrial cavity. 2.5 cm right adnexal cyst, density measurement 6 Hounsfield units. No edema in the adnexa. No fluid in the cul-de-sac. OSSEOUS STRUCTURES: Unremarkable. CT/CT abdomen pelvis wo IV con IMPRESSION: No significant abnormality. Fleischner guidelines were followed.
[2022-03-15] MEDS: ondansetron HCL 4 MG/2 ML VIAL IVPUSH (16:32)
[2022-03-15 16:33] VITALS: BP 116/67; PULSE 75; RESP 16; TEMP 36.7; O2SAT 100; BMI 24.2
[2022-03-15 16:40] VITALS: BP 134/86; PULSE 104; O2SAT 100
--- NOTE | 2022-03-15 16:52 | ED.ABDPAIN ---
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 Patient reports she was diagnosed with C diff in February and she did 10 day course of fidaxomicin. Patient reports no improvement of any of her symptoms when she was on the course of antibiotics. She did complete them all. She still reports more than 5 episodes of loose yellow stools a day sometimes diarrhea. Patient reports continued abdominal pain every day described as abdominal cramping as well as intermittent nausea. Since Monday she has feels like she has been worse. Today she had 1 episode of vomiting blood prior to EMS arrival. Patient denies any black or bloody stools. She tells me that she has been having a mustard colored stools. No fevers, chills, urinary symptoms, chest pain, shortness of breath. <Valorie Leslie NP - Last Filed: 03/15/22 18:49> Related Data Home Medications: Home Medications Medication Instructions Recorded Confirmed cholecalciferol (vitamin D3) 50 50 mcg PO QAM 01/06/22 mcg (2,000 unit) tablet clonazepam 1 mg tablet 0 mg PO 01/06/22 fluoxetine 20 mg capsule 40 mg PO QAM 01/06/22 fluticasone propionate 220 1 puff inhalation BID 01/06/22 mcg/actuation HFA aerosol inhaler (Flovent HFA) fluticasone propionate 50 2 spray intranasal DAILY 01/06/22 mcg/actuation nasal spray,suspension loratadine 10 mg tablet (Allergy 10 mg PO DAILY 01/06/22 Relief (loratadine)) montelukast 10 mg tablet 10 mg PO QPM asthma 01/06/22 multivitamin-iron sulfate 15 1 tab PO QAM 01/06/22 mg-folic acid 400 mcg tablet (Tab-A-Kisha Multivitamin w-iron) pregabalin 100 mg capsule 100 mg PO BID 01/06/22 quetiapine 100 mg tablet 50 mg PO BID PRN 01/06/22 quetiapine 300 mg tablet 600 mg PO BEDTIME 01/06/22 riboflavin (vitamin B2) 100 mg 400 mg PO DAILY 01/06/22 tablet (Vitamin B-2) ropinirole 4 mg tablet 4 mg PO BEDTIME 01/06/22 topiramate 25 mg tablet 25 mg PO BEDTIME 01/06/22 Previous Rx's Medication Instructions Recorded ibuprofen 800 mg tablet 800 mg PO Q8H PRN pain #20 tabs 03/02/21 pantoprazole 40 mg tablet,delayed 40 mg PO BID #60 tabs 06/16/21 release loperamide 2 mg capsule (Imodium 2 mg PO Q6H PRN loose stool #14 06/29/21 A-D) caps ondansetron 4 mg disintegrating 4 mg PO Q6-8H PRN nausea and 06/29/21 tablet vomiting #7 tabs alosetron 1 mg tablet (Lotronex) 1 mg PO BID #60 tabs 12/30/21 fidaxomicin 200 mg tablet (Dificid) 200 mg PO BID 10 days #20 tabs 02/02/22 hydrocortisone 2.5 % topical cream 1 appl TX BID PRN hemorrhoids #30 02/02/22 with perineal applicator grams (Proctosol HC) haloperidol 2 mg tablet 2 mg PO TID #14 tabs 03/16/22 <Valorie Leslie NP - Last Filed: 03/15/22 18:49> Allergies/Adverse Reactions: Allergies Allergy/AdvReac Type Severity Reaction Status Date / Time shellfish derived Allergy Unknown swelling Verified 01/06/22 12:09 [SHELLFISH DERIVED] <Valorie Leslie NP - Last Filed: 03/15/22 18:49> Review of Systems Review of Systems Yes all other systems are reviewed and are negative <Valorie Leslie NP - Last Filed: 03/15/22 18:49> Constitutional: Reports no additional constitutional complaints, Denies body ache(s), Denies chills, Denies fever(s), Denies headache(s) and Denies weakness <Valorie Leslie NP - Last Filed: 03/15/22 18:49> Eyes: Reports no additional eye complaints and Denies change in vision <Valorie Leslie NP - Last Filed: 03/15/22 18:49> Reports system reviewed and no additional complaints, except as documented, Reports dizziness, Denies headache(s), Denies nasal congestion, Denies nasal discharge and Denies neck pain <Valorie Leslie NP - Last Filed: 03/15/22 18:49> Cardiovascular: Reports no additional cardiovascular complaints, Denies chest pain, Denies leg edema and Denies dyspnea <Valorie Leslie NP - Last Filed: 03/15/22 18:49> Respiratory: Reports no additional respiratory complaints, Denies cough and Denies dyspnea <Valorie Leslie NP - Last Filed: 03/15/22 18:49> Gastrointestinal: Reports no additional gastrointestinal complaints, Reports abdominal pain, Denies hematochezia, Reports diarrhea, Reports nausea, Reports vomiting and Reports hematemesis <Valorie Leslie NP - Last Filed: 03/15/22 18:49> Genitourinary: Reports no additional female genitourinary complaints and Denies urinary incontinence <Valorie Leslie NP - Last Filed: 03/15/22 18:49> Musculoskeletal: Reports no additional musculoskeletal complaints, Denies back pain, Denies arthralgias, Denies joint swelling, Denies neck pain, Denies numbness and Denies tingling <Valorie Leslie NP - Last Filed: 03/15/22 18:49> Skin/Breast: Reports system reviewed and no additional complaints, except as docu and Denies rash <Valorie Leslie NP - Last Filed: 03/15/22 18:49> Reports system reviewed and no additional complaints, except as documented, Reports dizziness, Denies headache(s), Denies numbness, Denies tingling and Denies weakness <Valorie Leslie NP - Last Filed: 03/15/22 18:49> PMFSH Past Medical History Attestation statement: The following information was validated with the patient. <Valorie Leslie NP - Last Filed: 03/15/22 18:49> Source: old records reviewed and nursing notes reviewed <Valorie Leslie NP - Last Filed: 03/15/22 18:49> Medical History: Medical History Constipation Diarrhea <Valorie Leslie NP - Last Filed: 03/15/22 18:49> Surgical History: Surgical History H/O colonoscopy History of section History of tubal ligation <Valorie Leslie NP - Last Filed: 03/15/22 18:49> Social History Social History: Social History Alcohol intake: never Patient Tobacco Use Status: Never used Tobacco Advance Directives: No Advance Directives Information Provided: Yes <Valorie Leslie NP - Last Filed: 03/15/22 18:49> Physical Exam ED Vital Signs: Vital Signs - 24 hr 03/15/22 16:33 03/15/22 17:00 03/15/22 17:09 Temperature 98.1 F Pulse Rate 75 67 Respiratory Rate 16 16 Blood Pressure 116/67 111/67 Pulse Oximetry 100 Oxygen Delivery Method Room Air 03/15/22 20:57 03/15/22 23:54 Temperature Pulse Rate 81 63 Respiratory Rate 16 16 Blood Pressure 108/57 L 103/63 Pulse Oximetry 97 98 Oxygen Delivery Method Room Air Room Air BMI result Body Mass Index 24.2 <Valorie Leslie NP - Last Filed: 03/15/22 18:49> Vital Signs - 24 hr 03/15/22 16:33 03/15/22 17:00 03/15/22 17:09 Temperature 98.1 F Pulse Rate 75 67 Respiratory Rate 16 16 Blood Pressure 116/67 111/67 Pulse Oximetry 100 Oxygen Delivery Method Room Air 03/15/22 20:57 03/15/22 23:54 Temperature Pulse Rate 81 63 Respiratory Rate 16 16 Blood Pressure 108/57 L 103/63 Pulse Oximetry 97 98 Oxygen Delivery Method Room Air Room Air BMI result Body Mass Index 24.2 <Danilo Chirinos MD - Last Filed: 03/16/22 00:21> Const General: alert <Valorie Leslie NP - Last Filed: 03/15/22 18:49> Orientation/consciousness: patient oriented x3 <Valorie Leslie NP - Last Filed: 03/15/22 18:49> Limitations: no limitations <Valorie Leslie NP - Last Filed: 03/15/22 18:49> HENMT Head: Yes normal to inspection <Valorie Leslie NP - Last Filed: 03/15/22 18:49> Ears: hearing grossly normal bilaterally <Valorie Leslie NP - Last Filed: 03/15/22 18:49> Eyes General: appearance normal, both eyes and all related structures <Valorie Leslie NP - Last Filed: 03/15/22 18:49> Pupils: Equal, round and reactive pupils present <Valorie Leslie NP - Last Filed: 03/15/22 18:49> Neck Neck: Yes normal visual inspection, Yes full ROM, Yes no lymphadenopathy and Yes no meningeal signs <Valorie Leslie NP - Last Filed: 03/15/22 18:49> Chest Chest palpation & inspection: normal inspection of the chest <Valorie Leslie NP - Last Filed: 03/15/22 18:49> Resp Effort & Inspection: normal respiratory effort <Valorie Leslie NP - Last Filed: 03/15/22 18:49> Auscultation: clear to auscultation bilaterally <Valorie Leslie NP - Last Filed: 03/15/22 18:49> Cardio Rate: regular rate <Valorie Leslie NP - Last Filed: 03/15/22 18:49> Rhythm: regular rhythm <Valorie Leslie NP - Last Filed: 03/15/22 18:49> Peripheral pulses: Peripheral pulses 2+ throughout <Valorie Leslie NP - Last Filed: 03/15/22 18:49> GI Inspection: Yes normal to inspection <Valorie Leslie NP - Last Filed: 03/15/22 18:49> Palpation (GI): Tenderness to palpation present (GI) (Diffusely tender) <Valorie Leslie HAND II THERMAL CUTTER - Last Filed: 03/15/22 18:49> General: Yes no CVA tenderness <Valorie Leslie NP - Last Filed: 03/15/22 18:49> Back/Spine/Pelvis Back: no CVA tenderness <Valorie Leslie HAND II THERMAL CUTTER - Last Filed: 03/15/22 18:49> Thoracic/Lumbar Spine: thoracic and lumbar spine normal to inspection <Valorie Leslie HAND II THERMAL CUTTER - Last Filed: 03/15/22 18:49> Skin General skin exam: no rashes or lesions noted <Valorie Leslie NP - Last Filed: 03/15/22 18:49> Neuro General: patient oriented x3, moves all extremities and no meningeal signs <Valorie Leslie NP - Last Filed: 03/15/22 18:49> Cranial nerves: Yes Equal, round and reactive pupils present <Valorie Leslie NP - Last Filed: 03/15/22 18:49> Cognition (Neuro): normal cognition <Valorie Leslie NP - Last Filed: 03/15/22 18:49> Extrem General: Yes normal to inspection, Yes no pedal edema and Yes no calf tenderness <Valorie Leslie NP - Last Filed: 03/15/22 18:49> Course Course Course Narrative: +orthostatics with 30 point increase in HR. Fluids infusing. After 1st round of analgesia patient reports continued diffuse abdominal pain. Will give 2nd round of analgesia, obtain CT abdomen and pelvis. Labs unremarkable. Patient to this point has been unable to provide a stool sample. <Valorie Leslie NP - Last Filed: 03/15/22 18:49> Reevaluation(s) Reevaluation #1: [id number] out to Dr Chirinos pending CT A/P, stool studies, UA <Valorie Leslie NP - Last Filed: 03/15/22 18:49> Reevaluation #2: 00:19. Labs are unremarkable. Patient was still unable to give a stool sample but she is feeling better after Haldol IV. She is able to tolerate peels without difficulty. Will discharge home to follow-up with GI for repeat stool stool cultures and further workup as needed <Danilo Chirinos MD - Last Filed: 03/16/22 00:21> Medical Decision Making Medical Decision Making MDM Narrative: 41-year-old female with history of recurrent C diff presents with acute on chronic vomiting, abdominal cramping, diarrhea since Monday with feeling dizzy with position changes. Patient also had 1 episode of vomiting blood prior to arrival reportedly. No black or bloody stools. On arrival patient is alert, she is vomiting. She has diffuse abdominal tenderness. Patient did complete a course of antibiotics last month for C diff. Not currently on any antibiotics. She denies any improvement in her symptoms while taking the antibiotics. Will check labs, UA, stool studies, orthostatic vital signs, occult stool (nursing to check stool), EKG, flu/RSV/COVID testing. Will give fluids, antiemetics, analgesia and reassess <Valorie Leslie NP - Last Filed: 03/15/22 18:49> Differential Diagnosis Differential Diagnoses: The differential diagnosis associated with the presentation includes <Valorie Leslie NP - Last Filed: 03/15/22 18:49> C diff colitis, viral syndrome, gastroenteritis, diverticulitis <Valorie Leslie NP - Last Filed: 03/15/22 18:49> Lab Data Result Diagrams: : 03/15/22 17:23 03/15/22 17:23 <Valorie Leslie NP - Last Filed: 03/15/22 18:49> Labs: Lab Results 03/15/22 03/15/22 03/15/22 Range/Units 17:23 17:23 17:23 WBC 6.0 (4.8-10.8) X10*3/uL RBC 4.52 (4.20-5.50) X10*6/uL Hgb 13.6 (12.0-16.0) g/dl Hct 38.6 (37.0-47.0) % MCV 85.4 (80.0-98.0) fL MCH 30.1 (27.0-33.0) pg MCHC 35.2 H (31.0-35.0) g/dl RDW 11.9 (11.0-16.0) % Plt Count 288 (160-400) X10*3/uL MPV 9.2 L (9.4-12.3) fL Immature Gran % (Auto) 0.2 (0.0-0.4) % Neut % (Auto) 57.2 (45-73) % Lymph % (Auto) 35.5 (20-40) % [place] % (Auto) 6.5 (2-11) % Eos % (Auto) 0.3 (0-4) % Baso % (Auto) 0.3 (0-2) % Lymph # (Auto) 2.1 (1.2-4.9) X10*3/uL [place] # (Auto) 0.4 (0.1-1.2) X10*3/uL Eos # (Auto) 0.0 (0.0-0.4) X10*3/uL Baso # (Auto) 0.0 (0.0-0.2) X10*3/uL Abs Immat Gran (auto) 0.01 (0.00-0.03) X10*3/uL Absolute Neuts (auto) 3.4 (2.0-8.3) x10*3/uL Absolute Nucleated RBC 0.000 (0.0-0.012) X10*3/uL Nucleated RBC % (auto) 0.0 (0.0-0.2) /100WBC PT 12.5 (10.0-13.1) SEC INR 1.1 (0.9-1.1) Sodium 138 (135-145) mmol/L Potassium 3.8 (3.3-5.1) mmol/L Chloride 109 H (96-108) mmol/L Carbon Dioxide 21 L (22-29) mmol/L Anion Gap 12 (12-20) BUN 12 (9-16) mg/dL Creatinine 0.83 (0.5-1.4) mg/dL Estim Creat Clear Calc 85.2 Estimated GFR > 60 Random Glucose 97 (60-115) mg/dL Lactic Acid (0.5-2.0) mmol/L Calcium 9.2 (8.4-10.2) mg/dL Magnesium 1.8 (1.6-2.6) mg/dL Total Bilirubin 0.8 (0.0-1.0) mg/dL Direct Bilirubin 0.3 (0.0-0.5) mg/dL AST 17 (5-31) U/L ALT 16 (0-31) U/L Alkaline Phosphatase 74 (39-117) U/L Total Protein 7.5 (6.5-8.0) g/dL Albumin 4.6 (3.5-5.0) g/dL Lipase 12 (8-78) U/L Beta HCG, Quant < 2 mIU/mL Urine Color Urine Appearance Urine pH (5.0-9.0) Ur Specific [place] (1.005-1.025) Urine Protein (Neg-Trace) mg/dL Urine Glucose (UA) (Negative) mg/dL Urine Ketones (Negative) mg/dL Urine Blood (Negative) Urine Nitrite (Negative) Ur Leukocyte Esterase (Negative) Urine RBC (0-2) /HPF Urine WBC (0-5) /HPF Ur Squamous Epith Cells (0-2) /HPF Urine Bacteria (None Seen) Hyaline Casts (0-2) /LPF Urine Test (NEGATIVE) Influenza Type A (PCR) (Negative) Influenza Type B (PCR) (Negative) RSV RNA Qual (PCR) (Negative) SARS-CoV-2 RNA (RT-PCR) (Negative) 03/15/22 03/15/22 03/15/22 Range/Units 17:23 18:02 20:43 WBC (4.8-10.8) X10*3/uL RBC (4.20-5.50) X10*6/uL Hgb (12.0-16.0) g/dl Hct (37.0-47.0) % MCV (80.0-98.0) fL MCH (27.0-33.0) pg MCHC (31.0-35.0) g/dl RDW (11.0-16.0) % Plt Count (160-400) X10*3/uL MPV (9.4-12.3) fL Immature Gran % (Auto) (0.0-0.4) % Neut % (Auto) (45-73) % Lymph % (Auto) (20-40) % [place] % (Auto) (2-11) % Eos % (Auto) (0-4) % Baso % (Auto) (0-2) % Lymph # (Auto) (1.2-4.9) X10*3/uL [place] # (Auto) (0.1-1.2) X10*3/uL Eos # (Auto) (0.0-0.4) X10*3/uL Baso # (Auto) (0.0-0.2) X10*3/uL Abs Immat Gran (auto) (0.00-0.03) X10*3/uL Absolute Neuts (auto) (2.0-8.3) x10*3/uL Absolute Nucleated RBC (0.0-0.012) X10*3/uL Nucleated RBC % (auto) (0.0-0.2) /100WBC PT (10.0-13.1) SEC INR (0.9-1.1) Sodium (135-145) mmol/L Potassium (3.3-5.1) mmol/L Chloride (96-108) mmol/L Carbon Dioxide (22-29) mmol/L Anion Gap (12-20) BUN (9-16) mg/dL Creatinine (0.5-1.4) mg/dL Estim Creat Clear Calc Estimated GFR Random Glucose (60-115) mg/dL Lactic Acid 0.6 (0.5-2.0) mmol/L Calcium (8.4-10.2) mg/dL Magnesium (1.6-2.6) mg/dL Total Bilirubin (0.0-1.0) mg/dL Direct Bilirubin (0.0-0.5) mg/dL AST (5-31) U/L ALT (0-31) U/L Alkaline Phosphatase (39-117) U/L Total Protein (6.5-8.0) g/dL Albumin (3.5-5.0) g/dL Lipase (8-78) U/L Beta HCG, Quant mIU/mL Urine Color Yellow Urine Appearance Cloudy Urine pH 6.5 (5.0-9.0) Ur Specific [place] 1.025 (1.005-1.025) Urine Protein Trace (Neg-Trace) mg/dL Urine Glucose (UA) Negative (Negative) mg/dL Urine Ketones Trace (Negative) mg/dL Urine Blood Negative (Negative) Urine Nitrite Negative (Negative) Ur Leukocyte Esterase Trace H (Negative) Urine RBC 3-5 H (0-2) /HPF Urine WBC 0-5 (0-5) /HPF Ur Squamous Epith Cells >20 (0-2) /HPF Urine Bacteria 1+ (None Seen) Hyaline Casts 0-2 (0-2) /LPF Urine Test (NEGATIVE) Influenza Type A (PCR) NEGATIVE (Negative) Influenza Type B (PCR) NEGATIVE (Negative) RSV RNA Qual (PCR) NEGATIVE (Negative) SARS-CoV-2 RNA (RT-PCR) NEGATIVE (Negative) 03/15/22 Range/Units 20:43 WBC (4.8-10.8) X10*3/uL RBC (4.20-5.50) X10*6/uL Hgb (12.0-16.0) g/dl Hct (37.0-47.0) % MCV (80.0-98.0) fL MCH (27.0-33.0) pg MCHC (31.0-35.0) g/dl RDW (11.0-16.0) % Plt Count (160-400) X10*3/uL MPV (9.4-12.3) fL Immature Gran % (Auto) (0.0-0.4) % Neut % (Auto) (45-73) % Lymph % (Auto) (20-40) % [place] % (Auto) (2-11) % Eos % (Auto) (0-4) % Baso % (Auto) (0-2) % Lymph # (Auto) (1.2-4.9) X10*3/uL [place] # (Auto) (0.1-1.2) X10*3/uL Eos # (Auto) (0.0-0.4) X10*3/uL Baso # (Auto) (0.0-0.2) X10*3/uL Abs Immat Gran (auto) (0.00-0.03) X10*3/uL Absolute Neuts (auto) (2.0-8.3) x10*3/uL Absolute Nucleated RBC (0.0-0.012) X10*3/uL Nucleated RBC % (auto) (0.0-0.2) /100WBC PT (10.0-13.1) SEC INR (0.9-1.1) Sodium (135-145) mmol/L Potassium (3.3-5.1) mmol/L Chloride (96-108) mmol/L Carbon Dioxide (22-29) mmol/L Anion Gap (12-20) BUN (9-16) mg/dL Creatinine (0.5-1.4) mg/dL Estim Creat Clear Calc Estimated GFR Random Glucose (60-115) mg/dL Lactic Acid (0.5-2.0) mmol/L Calcium (8.4-10.2) mg/dL Magnesium (1.6-2.6) mg/dL Total Bilirubin (0.0-1.0) mg/dL Direct Bilirubin (0.0-0.5) mg/dL AST (5-31) U/L ALT (0-31) U/L Alkaline Phosphatase (39-117) U/L Total Protein (6.5-8.0) g/dL Albumin (3.5-5.0) g/dL Lipase (8-78) U/L Beta HCG, Quant mIU/mL Urine Color Urine Appearance Urine pH (5.0-9.0) Ur Specific [place] (1.005-1.025) Urine Protein (Neg-Trace) mg/dL Urine Glucose (UA) (Negative) mg/dL Urine Ketones (Negative) mg/dL Urine Blood (Negative) Urine Nitrite (Negative) Ur Leukocyte Esterase (Negative) Urine RBC (0-2) /HPF Urine WBC (0-5) /HPF Ur Squamous Epith Cells (0-2) /HPF Urine Bacteria (None Seen) Hyaline Casts (0-2) /LPF Urine Test NEGATIVE (NEGATIVE) Influenza Type A (PCR) (Negative) Influenza Type B (PCR) (Negative) RSV RNA Qual (PCR) (Negative) SARS-CoV-2 RNA (RT-PCR) (Negative) <Valorie Leslie NP - Last Filed: 03/15/22 18:49> Lab Results 03/15/22 03/15/22 03/15/22 Range/Units 17:23 17:23 17:23 WBC 6.0 (4.8-10.8) X10*3/uL RBC 4.52 (4.20-5.50) X10*6/uL Hgb 13.6 (12.0-16.0) g/dl Hct 38.6 (37.0-47.0) % MCV 85.4 (80.0-98.0) fL MCH 30.1 (27.0-33.0) pg MCHC 35.2 H (31.0-35.0) g/dl RDW 11.9 (11.0-16.0) % Plt Count 288 (160-400) X10*3/uL MPV 9.2 L (9.4-12.3) fL Immature Gran % (Auto) 0.2 (0.0-0.4) % Neut % (Auto) 57.2 (45-73) % Lymph % (Auto) 35.5 (20-40) % [place] % (Auto) 6.5 (2-11) % Eos % (Auto) 0.3 (0-4) % Baso % (Auto) 0.3 (0-2) % Lymph # (Auto) 2.1 (1.2-4.9) X10*3/uL [place] # (Auto) 0.4 (0.1-1.2) X10*3/uL Eos # (Auto) 0.0 (0.0-0.4) X10*3/uL Baso # (Auto) 0.0 (0.0-0.2) X10*3/uL Abs Immat Gran (auto) 0.01 (0.00-0.03) X10*3/uL Absolute Neuts (auto) 3.4 (2.0-8.3) x10*3/uL Absolute Nucleated RBC 0.000 (0.0-0.012) X10*3/uL Nucleated RBC % (auto) 0.0 (0.0-0.2) /100WBC PT 12.5 (10.0-13.1) SEC INR 1.1 (0.9-1.1) Sodium 138 (135-145) mmol/L Potassium 3.8 (3.3-5.1) mmol/L Chloride 109 H (96-108) mmol/L Carbon Dioxide 21 L (22-29) mmol/L Anion Gap 12 (12-20) BUN 12 (9-16) mg/dL Creatinine 0.83 (0.5-1.4) mg/dL Estim Creat Clear Calc 85.2 Estimated GFR > 60 Random Glucose 97 (60-115) mg/dL Lactic Acid (0.5-2.0) mmol/L Calcium 9.2 (8.4-10.2) mg/dL Magnesium 1.8 (1.6-2.6) mg/dL Total Bilirubin 0.8 (0.0-1.0) mg/dL Direct Bilirubin 0.3 (0.0-0.5) mg/dL AST 17 (5-31) U/L ALT 16 (0-31) U/L Alkaline Phosphatase 74 (39-117) U/L Total Protein 7.5 (6.5-8.0) g/dL Albumin 4.6 (3.5-5.0) g/dL Lipase 12 (8-78) U/L Beta HCG, Quant < 2 mIU/mL Urine Color Urine Appearance Urine pH (5.0-9.0) Ur Specific [place] (1.005-1.025) Urine Protein (Neg-Trace) mg/dL Urine Glucose (UA) (Negative) mg/dL Urine Ketones (Negative) mg/dL Urine Blood (Negative) Urine Nitrite (Negative) Ur Leukocyte Esterase (Negative) Urine RBC (0-2) /HPF Urine WBC (0-5) /HPF Ur Squamous Epith Cells (0-2) /HPF Urine Bacteria (None Seen) Hyaline Casts (0-2) /LPF Urine Test (NEGATIVE) Influenza Type A (PCR) (Negative) Influenza Type B (PCR) (Negative) RSV RNA Qual (PCR) (Negative) SARS-CoV-2 RNA (RT-PCR) (Negative) 03/15/22 03/15/22 03/15/22 Range/Units 17:23 18:02 20:43 WBC (4.8-10.8) X10*3/uL RBC (4.20-5.50) X10*6/uL Hgb (12.0-16.0) g/dl Hct (37.0-47.0) % MCV (80.0-98.0) fL MCH (27.0-33.0) pg MCHC (31.0-35.0) g/dl RDW (11.0-16.0) % Plt Count (160-400) X10*3/uL MPV (9.4-12.3) fL Immature Gran % (Auto) (0.0-0.4) % Neut % (Auto) (45-73) % Lymph % (Auto) (20-40) % [place] % (Auto) (2-11) % Eos % (Auto) (0-4) % Baso % (Auto) (0-2) % Lymph # (Auto) (1.2-4.9) X10*3/uL [place] # (Auto) (0.1-1.2) X10*3/uL Eos # (Auto) (0.0-0.4) X10*3/uL Baso # (Auto) (0.0-0.2) X10*3/uL Abs Immat Gran (auto) (0.00-0.03) X10*3/uL Absolute Neuts (auto) (2.0-8.3) x10*3/uL Absolute Nucleated RBC (0.0-0.012) X10*3/uL Nucleated RBC % (auto) (0.0-0.2) /100WBC PT (10.0-13.1) SEC INR (0.9-1.1) Sodium (135-145) mmol/L Potassium (3.3-5.1) mmol/L Chloride (96-108) mmol/L Carbon Dioxide (22-29) mmol/L Anion Gap (12-20) BUN (9-16) mg/dL Creatinine (0.5-1.4) mg/dL Estim Creat Clear Calc Estimated GFR Random Glucose (60-115) mg/dL Lactic Acid 0.6 (0.5-2.0) mmol/L Calcium (8.4-10.2) mg/dL Magnesium (1.6-2.6) mg/dL Total Bilirubin (0.0-1.0) mg/dL Direct Bilirubin (0.0-0.5) mg/dL AST (5-31) U/L ALT (0-31) U/L Alkaline Phosphatase (39-117) U/L Total Protein (6.5-8.0) g/dL Albumin (3.5-5.0) g/dL Lipase (8-78) U/L Beta HCG, Quant mIU/mL Urine Color Yellow Urine Appearance Cloudy Urine pH 6.5 (5.0-9.0) Ur Specific [place] 1.025 (1.005-1.025) Urine Protein Trace (Neg-Trace) mg/dL Urine Glucose (UA) Negative (Negative) mg/dL Urine Ketones Trace (Negative) mg/dL Urine Blood Negative (Negative) Urine Nitrite Negative (Negative) Ur Leukocyte Esterase Trace H (Negative) Urine RBC 3-5 H (0-2) /HPF Urine WBC 0-5 (0-5) /HPF Ur Squamous Epith Cells >20 (0-2) /HPF Urine Bacteria 1+ (None Seen) Hyaline Casts 0-2 (0-2) /LPF Urine Test (NEGATIVE) Influenza Type A (PCR) NEGATIVE (Negative) Influenza Type B (PCR) NEGATIVE (Negative) RSV RNA Qual (PCR) NEGATIVE (Negative) SARS-CoV-2 RNA (RT-PCR) NEGATIVE (Negative) 03/15/22 Range/Units 20:43 WBC (4.8-10.8) X10*3/uL RBC (4.20-5.50) X10*6/uL Hgb (12.0-16.0) g/dl Hct (37.0-47.0) % MCV (80.0-98.0) fL MCH (27.0-33.0) pg MCHC (31.0-35.0) g/dl RDW (11.0-16.0) % Plt Count (160-400) X10*3/uL MPV (9.4-12.3) fL Immature Gran % (Auto) (0.0-0.4) % Neut % (Auto) (45-73) % Lymph % (Auto) (20-40) % [place] % (Auto) (2-11) % Eos % (Auto) (0-4) % Baso % (Auto) (0-2) % Lymph # (Auto) (1.2-4.9) X10*3/uL [place] # (Auto) (0.1-1.2) X10*3/uL Eos # (Auto) (0.0-0.4) X10*3/uL Baso # (Auto) (0.0-0.2) X10*3/uL Abs Immat Gran (auto) (0.00-0.03) X10*3/uL Absolute Neuts (auto) (2.0-8.3) x10*3/uL Absolute Nucleated RBC (0.0-0.012) X10*3/uL Nucleated RBC % (auto) (0.0-0.2) /100WBC PT (10.0-13.1) SEC INR (0.9-1.1) Sodium (135-145) mmol/L Potassium (3.3-5.1) mmol/L Chloride (96-108) mmol/L Carbon Dioxide (22-29) mmol/L Anion Gap (12-20) BUN (9-16) mg/dL Creatinine (0.5-1.4) mg/dL Estim Creat Clear Calc Estimated GFR Random Glucose (60-115) mg/dL Lactic Acid (0.5-2.0) mmol/L Calcium (8.4-10.2) mg/dL Magnesium (1.6-2.6) mg/dL Total Bilirubin (0.0-1.0) mg/dL Direct Bilirubin (0.0-0.5) mg/dL AST (5-31) U/L ALT (0-31) U/L Alkaline Phosphatase (39-117) U/L Total Protein (6.5-8.0) g/dL Albumin (3.5-5.0) g/dL Lipase (8-78) U/L Beta HCG, Quant mIU/mL Urine Color Urine Appearance Urine pH (5.0-9.0) Ur Specific [place] (1.005-1.025) Urine Protein (Neg-Trace) mg/dL Urine Glucose (UA) (Negative) mg/dL Urine Ketones (Negative) mg/dL Urine Blood (Negative) Urine Nitrite (Negative) Ur Leukocyte Esterase (Negative) Urine RBC (0-2) /HPF Urine WBC (0-5) /HPF Ur Squamous Epith Cells (0-2) /HPF Urine Bacteria (None Seen) Hyaline Casts (0-2) /LPF Urine Test NEGATIVE (NEGATIVE) Influenza Type A (PCR) (Negative) Influenza Type B (PCR) (Negative) RSV RNA Qual (PCR) (Negative) SARS-CoV-2 RNA (RT-PCR) (Negative) <Danilo Chirinos MD - Last Filed: 03/16/22 00:21> Medications Administered Discontinued Medications Generic Name Dose Route Start Last Admin Trade Name Freq PRN Reason Stop Dose Admin Diphenhydramine HCl 50 mg 03/15/22 20:45 03/15/22 20:53 Diphenhydramine Hcl 50 Mg/Ml Vial IVPUSH 03/15/22 20:46 50 mg ONCE ONE Administration Famotidine 20 mg 03/15/22 18:22 03/15/22 18:49 Famotidine/Pf 20 Mg/2 Ml Vial IVPUSH 03/15/22 18:23 20 mg ONCE ONE Administration Haloperidol Lactate 2 mg 03/15/22 22:59 03/15/22 23:25 Haloperidol Lactate 5 Mg/Ml Vial IVPUSH 03/15/22 23:00 2 mg STAT STA Administration Sodium Chloride 1,000 mls @ 999 mls/hr 03/15/22 16:42 03/15/22 18:57 Ns IV 03/15/22 17:42 Infused .Q1H1M STA Infusion Morphine Sulfate 4 mg 03/15/22 16:42 03/15/22 17:00 Morphine Sulfate 4 Mg/Ml Cartridge IVPUSH 03/15/22 16:43 4 mg ONCE ONE Administration Protocol Morphine Sulfate 4 mg 03/15/22 18:22 03/15/22 18:49 Morphine Sulfate 4 Mg/Ml Cartridge IVPUSH 03/15/22 18:23 4 mg ONCE ONE Administration Protocol Ondansetron HCl 4 mg 03/15/22 16:26 03/15/22 16:32 Ondansetron Hcl 4 Mg/2 Ml Vial IVPUSH 03/15/22 16:27 4 mg ONCE ONE Administration <Valorie Leslie NP - Last Filed: 03/15/22 18:49> Medications Administered Discontinued Medications Generic Name Dose Route Start Last Admin Trade Name Evelina PRRian Reason Stop Dose Admin Diphenhydramine HCl 50 mg 03/15/22 20:45 03/15/22 20:53 Diphenhydramine Hcl 50 Mg/Ml Vial IVPUSH 03/15/22 20:46 50 mg ONCE ONE Administration Famotidine 20 mg 03/15/22 18:22 03/15/22 18:49 Famotidine/Pf 20 Mg/2 Ml Vial IVPUSH 03/15/22 18:23 20 mg ONCE ONE Administration Haloperidol Lactate 2 mg 03/15/22 22:59 03/15/22 23:25 Haloperidol Lactate 5 Mg/Ml Vial IVPUSH 03/15/22 23:00 2 mg STAT STA Administration Sodium Chloride 1,000 mls @ 999 mls/hr 03/15/22 16:42 03/15/22 18:57 Ns IV 03/15/22 17:42 Infused .Q1H1M STA Infusion Morphine Sulfate 4 mg 03/15/22 16:42 03/15/22 17:00 Morphine Sulfate 4 Mg/Ml Cartridge IVPUSH 03/15/22 16:43 4 mg ONCE ONE Administration Protocol Morphine Sulfate 4 mg 03/15/22 18:22 03/15/22 18:49 Morphine Sulfate 4 Mg/Ml Cartridge IVPUSH 03/15/22 18:23 4 mg ONCE ONE Administration Protocol Ondansetron HCl 4 mg 03/15/22 16:26 03/15/22 16:32 Ondansetron Hcl 4 Mg/2 Ml Vial IVPUSH 03/15/22 16:27 4 mg ONCE ONE Administration <Danilo Chirinos MD - Last Filed: 03/16/22 00:21> Discharge Plan Discharge Clinical Impression: Diarrhea, Orthostasis, Abdominal pain <Valorie Leslie NP - Last Filed: 03/15/22 18:49> Patient Disposition: Home, Self-Care <Valorie Leslie NP - Last Filed: 03/15/22 18:49> Instructions: Acute Diarrhea (ED), Abdominal Pain (ED) <Valorie Leslie NP - Last Filed: 03/15/22 18:49> Additional Instructions: Drink plenty of liquids. Haloperidol is a medicine for nausea and abdominal pain. It can make you drowsy so do not take it if you need to drive. <Valorie Leslie NP - Last Filed: 03/15/22 18:49> Prescriptions: New haloperidol 2 mg tablet 2 mg PO TID Qty: 14 0RF No Action pantoprazole 40 mg tablet,delayed release (DR/EC) 40 mg PO BID Qty: 60 2RF ibuprofen 800 mg tablet 800 mg PO Q8H PRN (Reason: pain) Qty: 20 0RF ondansetron 4 mg tablet,disintegrating 4 mg PO Q6-8H PRN (Reason: nausea and vomiting) Qty: 7 0RF loperamide [Imodium A-D] 2 mg capsule 2 mg PO Q6H PRN (Reason: loose stool) Qty: 14 0RF alosetron [Lotronex] 1 mg tablet 1 mg PO BID Qty: 60 6RF Dificid 200 mg tablet 200 mg PO BID 10 Days Qty: 20 0RF hydrocortisone [Proctosol HC] 2.5 % cream with perineal applicator 1 appl [place] BID PRN (Reason: hemorrhoids) Qty: 30 0RF topiramate 25 mg tablet 25 mg PO BEDTIME cholecalciferol (vitamin D3) 50 mcg (2,000 unit) tablet 50 mcg PO QAM fluticasone propionate [Flovent HFA] 220 mcg/actuation HFA aerosol inhaler 1 puff inhalation BID montelukast 10 mg tablet 10 mg PO QPM clonazepam 1 mg tablet 0 mg PO pregabalin 100 mg capsule 100 mg PO BID Tab-A-Kisha Multivitamin w-iron 15 mg iron- 400 mcg tablet 1 tab PO QAM ropinirole 4 mg tablet 4 mg PO BEDTIME loratadine [Allergy Relief (loratadine)] 10 mg tablet 10 mg PO DAILY fluticasone propionate 50 mcg/actuation spray,suspension 2 spray intranasal DAILY fluoxetine 20 mg capsule 40 mg PO QAM quetiapine 100 mg tablet 50 mg PO BID PRN riboflavin (vitamin B2) [Vitamin B-2] 100 mg tablet 400 mg PO DAILY quetiapine 300 mg tablet 600 mg PO BEDTIME <Valorie Leslie NP - Last Filed: 03/15/22 18:49>
[2022-03-15 17:00] VITALS: RESP 16
[2022-03-15] MEDS: Morphine Sulfate 4 MG/ML CARTRIDGE IVPUSH ×2 (17:00→18:49)
[2022-03-15] MEDS: 0.9 % Sodium Chloride 1,000 ML 999 ML IV (17:03)
[2022-03-15 17:09] VITALS: BP 111/67; PULSE 67
[2022-03-15 17:31] LABS: MANUAL DIFF FLAG NO
[2022-03-15 17:41] LABS: INTERNATIONAL NORM RATIO 1.1 (0.9-1.1); Prothrombin Time 12.5 SEC (10.0-13.1)
[2022-03-15 17:42] LABS: Basophils Percent Auto 0.3 % (0-2); Eosinophils Percent Auto 0.3 % (0-4); Hematocrit 38.6 % (37.0-47.0); Hemoglobin 13.6 g/dl (12.0-16.0); Imm Gran Abs Auto 0.01 X10*3/uL (0.00-0.03); Imm Gran Pct Auto 0.2 % (0.0-0.4); Lymphocytes Absolute Auto 2.1 X10*3/uL (1.2-4.9); Lymphocytes Percent Auto 35.5 % (20-40); Mean Corpuscular HGB Conc 35.2 g/dl (31.0-35.0); Mean Corpuscular Hemoglobin 30.1 pg (27.0-33.0); Mean Corpuscular Volume 85.4 fL (80.0-98.0); Mean Platelet Volume 9.2 fL (9.4-12.3); Monocytes Absolute Auto 0.4 X10*3/uL (0.1-1.2); Monocytes Percent Auto 6.5 % (2-11); Neutrophils Absolute Auto 3.4 x10*3/uL (2.0-8.3); Neutrophils Percent Auto 57.2 % (45-73); Platelet Count 288 X10*3/uL (160-400); Red Blood Count 4.52 X10*6/uL (4.20-5.50); Red Cell Distribution Width 11.9 % (11.0-16.0)
[2022-03-15 17:51] LABS: Alanine Aminotransferase 16 U/L (0-31); Albumin Level 4.6 g/dL (3.5-5.0); Alkaline Phosphatase 74 U/L (39-117); Anion Gap 12 (12-20); Aspartate Amino Transferase 17 U/L (5-31); Bilirubin Direct 0.3 mg/dL (0.0-0.5); Bilirubin Total 0.8 mg/dL (0.0-1.0); Blood Urea Nitrogen 12 mg/dL (9-16); Calcium 9.2 mg/dL (8.4-10.2); Carbon Dioxide 21 mmol/L (22-29); Chloride 109 mmol/L (96-108); Creatinine Clr Calc Pharmacy 85.2; Estimated Glomerular Filt Rate > 60; Glucose Random 97 mg/dL (60-115); Lipase 12 U/L (8-78); Magnesium 1.8 mg/dL (1.6-2.6); Potassium 3.8 mmol/L (3.3-5.1); Sodium 138 mmol/L (135-145); Total Protein 7.5 g/dL (6.5-8.0)
[2022-03-15 18:15] LABS: Influenza A PCR NEGATIVE (Negative); Influenza B PCR NEGATIVE (Negative); Resp Syncy Virus RNA Qual PCR NEGATIVE (Negative); SARS COV2 PCR INHOUSE NEGATIVE (Negative)
[2022-03-15 18:21] LABS: Lactic Acid 0.6 mmol/L (0.5-2.0)
[2022-03-15] MEDS: Famotidine/PF 20 MG/2 ML VIAL IVPUSH (18:49)
[2022-03-15 19:42] LABS: HCG Quantitative < 2 mIU/mL
[2022-03-15] MEDS: diphenhydrAMINE HCL 50 MG/ML VIAL IVPUSH (20:53)
[2022-03-15 20:57] VITALS: BP 108/57; PULSE 81; RESP 16; O2SAT 97
--- NOTE | 2022-03-15 20:59 | PC.NURSE ---
patient states she is itchy- no rash noted but patient is scratching- patient states she gets the same way with percocet. physician aware and patient medicated as ordered. patient aware that we still need to obtain a stool sample, states she is still unable to go.
[2022-03-15 21:01] LABS: Appearance Urine Cloudy; Color Urine Yellow; Glucose Urine UA Negative (Negative); Leukocyte Esterase Urine Trace (Negative); Nitrite Urine Negative (Negative); PH 6.5 (5.0-9.0); Specific Gravity - Urine 1.025 (1.005-1.025); UMIC TRIGGER UACC YES; Urine Blood Negative (Negative); Urine Ketones Trace mg/dL (Negative); Urine Protein Trace mg/dL (Neg-Trace)
[2022-03-15 21:02] LABS: Urine Pregnancy NEGATIVE (NEGATIVE)
[2022-03-15 21:03] LABS: UPreg QC Valid YES
[2022-03-15 21:05] LABS: Bacteria Urine 1+ (None Seen); Hyaline Casts Urine 0-2 /LPF (0-2); Squamous Epithelial Cell Urine >20 /HPF (0-2); WBC Urine 0-5 /HPF (0-5)
[2022-03-15] MEDS: Haloperidol Lactate 5 MG/ML VIAL 2 MG IVPUSH (23:25)
[2022-03-15 23:54] VITALS: BP 103/63; PULSE 63; RESP 16; O2SAT 98
--- NOTE | 2022-03-15 23:55 | PC.NURSE ---
patient states that abdominal pain is resolved at this time. patient tolerating food and PO fluids
== END 2022-03-16 00:29 | disposition home or self-care (01) ==
PROVIDERS: Nurse Practitioner Family; Emergency Provider Emergency Medicine; PCP General Practice
DX: R42 Dizziness and giddiness (principal); I95.1 Orthostatic hypotension; R19.7 Diarrhea, unspecified; R11.10 Vomiting, unspecified; Z79.899 Other long term (current) drug therapy; Z20.822 Contact with and (suspected) exposure to COVID-19
CPT/HCPCS: 0241U; 36415; 74176; 80048; 80076; 81001; 81003; 81025; 83605; 83690; 83735; 84702; 85025; 85610; 87040; 96361; 96374; 96375; 96376; 99284; J1200; J2270; J2405

== ENCOUNTER 2022-03-16 13:19 | Outpatient (REF) | payer MEDICAID, SELFPAY ==
[2022-03-16 15:09] LABS: Anion Gap 13 (12-20); Carbon Dioxide 24 mmol/L (22-29); Chloride 106 mmol/L (96-108); Sodium 139 mmol/L (135-145)
== END 2022-03-16 13:20 | disposition home or self-care (01) ==
LOC: HO.LAB 13:19
PROVIDERS: PCP General Practice; Visit Provider Nurse Practitioner
DX: A04.72 Enterocolitis due to Clostridium difficile, not specified as recurrent (principal); R11.2 Nausea with vomiting, unspecified; K58.0 Irritable bowel syndrome with diarrhea
CPT/HCPCS: 36415; 80051; 99212

== ENCOUNTER 2022-03-17 16:41 | Outpatient (REF) | payer MEDICAID, SELFPAY ==
[2022-03-17 18:00] LABS: CDiff Gene PCR POSITIVE (Negative)
[2022-03-17 19:02] LABS: CDIFF Internal ctrl Dots and bkg OK (V); CDiff Toxin Negative (Negative)
== END 2022-03-17 16:42 | disposition home or self-care (01) ==
LOC: HO.LNP 16:41
PROVIDERS: Visit Provider Nurse Practitioner
DX: A04.72 Enterocolitis due to Clostridium difficile, not specified as recurrent (principal); R11.2 Nausea with vomiting, unspecified
CPT/HCPCS: 87324; 87493

== ENCOUNTER → 2022-04-01 13:28 | Outpatient (BNVA) | payer MEDICAID, SELFPAY | PROVIDERS: PCP General Practice; Visit Provider Nurse Practitioner | DX: A04.72 Enterocolitis due to Clostridium difficile, not specified as recurrent (principal); R11.2 Nausea with vomiting, unspecified | CPT/HCPCS: 99212 ==

== ENCOUNTER 2022-05-24 19:47 | Emergency (ER) | payer MEDICAID, SELFPAY ==
[2022-05-24 19:55] VITALS: BP 107/64; PULSE 80; RESP 18; TEMP 36.6; O2SAT 97; BMI 25.5
[2022-05-24 20:27] LABS: Appearance Urine Clear; Color Urine Yellow; Glucose Urine UA Negative (Negative); Leukocyte Esterase Urine Negative (Negative); Nitrite Urine Negative (Negative); PH 5.5 (5.0-9.0); Urine Blood Negative (Negative); Urine Ketones Negative (Negative); Urine Protein Negative (Neg-Trace)
[2022-05-24 20:28] LABS: UPreg QC Valid YES; Urine Pregnancy NEGATIVE (NEGATIVE)
[2022-05-24 20:39] LABS: MANUAL DIFF FLAG NO
[2022-05-24 20:45] LABS: Basophils Percent Auto 0.3 % (0-2); Eosinophils Percent Auto 0.2 % (0-4); Hematocrit 37.9 % (37.0-47.0); Hemoglobin 12.9 g/dl (12.0-16.0); Imm Gran Abs Auto 0.01 X10*3/uL (0.00-0.03); Imm Gran Pct Auto 0.2 % (0.0-0.4); Lymphocytes Absolute Auto 2.2 X10*3/uL (1.2-4.9); Lymphocytes Percent Auto 35.4 % (20-40); Mean Corpuscular Hemoglobin 30.1 pg (27.0-33.0); Mean Corpuscular Volume 88.6 fL (80.0-98.0); Mean Platelet Volume 9.2 fL (9.4-12.3); Monocytes Absolute Auto 0.3 X10*3/uL (0.1-1.2); Monocytes Percent Auto 4.3 % (2-11); Neutrophils Absolute Auto 3.8 x10*3/uL (2.0-8.3); Neutrophils Percent Auto 59.6 % (45-73); Platelet Count 257 X10*3/uL (160-400); Red Blood Count 4.28 X10*6/uL (4.20-5.50); Red Cell Distribution Width 12.3 % (11.0-16.0); White Blood Count 6.3 X10*3/uL (4.8-10.8)
[2022-05-24 20:56] LABS: Alanine Aminotransferase 15 U/L (0-31); Albumin Level 4.4 g/dL (3.5-5.0); Alkaline Phosphatase 58 U/L (39-117); Anion Gap 14 (12-20); Aspartate Amino Transferase 14 U/L (5-31); Bilirubin Direct 0.2 mg/dL (0.0-0.5); Bilirubin Total 0.7 mg/dL (0.0-1.0); Blood Urea Nitrogen 13 mg/dL (9-16); Calcium 9.1 mg/dL (8.4-10.2); Carbon Dioxide 22 mmol/L (22-29); Chloride 108 mmol/L (96-108); Creatinine Clr Calc Pharmacy 80.9; Estimated Glomerular Filt Rate > 60; Glucose Random 129 mg/dL (60-115); Lipase 18 U/L (8-78); Potassium 3.6 mmol/L (3.3-5.1); Sodium 140 mmol/L (135-145); Total Protein 7.3 g/dL (6.5-8.0)
[2022-05-25 01:00] VITALS: BP 111/54; PULSE 66; RESP 18; TEMP 36.6; O2SAT 98
--- NOTE | 2022-05-25 01:01 | ED_ITS ---
HPI - General Adult General Chief complaint: General Medical Stated complaint: Abdominal/back pain Time Seen by Provider: 05/25/22 00:40 Source: patient Mode of arrival: ambulatory Limitations: no limitations History of Present Illness HPI narrative: Patient with History of C diff colitis been constipated for last 4 days taking milk of magnesium and senna now she has been having diarrhea for last 2 days with nausea no fever no chills call the GI will ask her to go to hospital to be tested for C diff. after arrival in the ER patient did not have any bowel movement complaining of diffuse abdominal cramping no recent antibiotic taken Related Data Home Medications Medication Instructions Recorded Confirmed cholecalciferol (vitamin D3) 50 50 mcg PO QAM 01/06/22 mcg (2,000 unit) tablet fluoxetine 20 mg capsule 40 mg PO QAM 01/06/22 fluticasone propionate 220 1 puff inhalation BID 01/06/22 mcg/actuation HFA aerosol inhaler (Flovent HFA) fluticasone propionate 50 2 spray intranasal DAILY 01/06/22 mcg/actuation nasal spray,suspension loratadine 10 mg tablet (Allergy 10 mg PO DAILY 01/06/22 Relief (loratadine)) montelukast 10 mg tablet 10 mg PO QPM asthma 01/06/22 multivitamin-iron sulfate 15 1 tab PO QAM 01/06/22 mg-folic acid 400 mcg tablet (Tab-A-Kisha Multivitamin w-iron) quetiapine 100 mg tablet 50 mg PO BID PRN 01/06/22 quetiapine 300 mg tablet 600 mg PO BEDTIME 01/06/22 riboflavin (vitamin B2) 100 mg 400 mg PO DAILY 01/06/22 tablet (Vitamin B-2) ropinirole 4 mg tablet 4 mg PO BEDTIME 01/06/22 topiramate 25 mg tablet 25 mg PO BEDTIME 01/06/22 albuterol sulfate 2.5 mg/3 mL mg inhalation Q4-6H 04/01/22 (0.083 %) solution for nebulization calcium carbonate 300 mg (750 mg) 1 - 2 tab PO DIRECTED 04/01/22 chewable tablet (Antacid Extra Strength (calcium carb)) clonazepam 1 mg tablet 1 mg PO 04/01/22 diphenhydramine HCl 25 mg capsule 25 - 50 mg PO BEDTIME PRN insomnia 12/30/22 (Banophen) famotidine 20 mg tablet 20 mg PO QPM 04/01/22 ketotifen fumarate 0.025 % (0.035 1 drp ophthalmic (eye) BID 04/01/22 %) eye drops Previous Rx's Medication Instructions Recorded ibuprofen 800 mg tablet 800 mg PO Q8H PRN pain #20 tabs 03/02/21 loperamide 2 mg capsule (Imodium 2 mg PO Q6H PRN loose stool #14 06/29/21 A-D) caps hydrocortisone 2.5 % topical cream 1 appl [place] BID PRN hemorrhoids #30 02/02/22 with perineal applicator grams (Proctosol HC) ondansetron 4 mg disintegrating 4 mg PO BID-TID nausea and 03/16/22 tablet vomiting #90 tabs pantoprazole 40 mg tablet,delayed 40 mg PO BID #60 tabs 03/16/22 release dicyclomine 20 mg tablet 40 mg PO QID 30 days #240 tabs 03/29/22 magnesium hydroxide 400 mg/5 mL 5 ml PO BEDTIME #355 mL 04/01/22 oral suspension (Milk of Magnesia) ondansetron HCl 8 mg tablet 8 mg PO TID 30 days #90 tabs 04/01/22 sennosides 8.6 mg capsule (senna) 17.2 mg PO BEDTIME constipation 30 05/20/22 days #60 caps dicyclomine 20 mg tablet 20 mg PO TID #20 tabs 05/25/22 ondansetron 4 mg disintegrating 4 mg PO Q6-8H PRN nausea and 05/25/22 tablet vomiting #7 tabs Allergies Allergy/AdvReac Type Severity Reaction Status Date / Time shellfish derived Allergy Unknown swelling Verified 05/24/22 20:04 [SHELLFISH DERIVED] morphine Allergy Itching Verified 05/24/22 20:04 Review of Systems Review of Systems: Yes all other systems are reviewed and are negative PMFSH Past Medical History Medical History Constipation Diarrhea Surgical History H/O colonoscopy History of section History of tubal ligation Social History Social History Alcohol intake: never Patient Tobacco Use Status: Never used Tobacco Smoked in Last 30 Days: No Use of substances other than those prescribed or required for medical reasons: Yes Substance Use Type: Marijuana Advance Directives: No Advance Directives Information Provided: No Patient : No Physical Exam ED Vital Signs: Vital Signs - 24 hr 05/24/22 19:55 05/25/22 01:00 05/25/22 04:48 Temperature 98 F 98 F 98.0 F Pulse Rate 80 66 87 Respiratory Rate 18 18 18 Blood Pressure 107/64 111/54 L 117/67 Pulse Oximetry 97 98 97 Oxygen Delivery Method Room Air Room Air Room Air BMI result Body Mass Index 25.5 Appearance: Alert. Oriented X3. No acute distress. Eyes: PERRLA, No Nystagmus ENT: Pharynx normal. Oral Mucosa moist Neck: Normal inspection. Neck supple. CVS: Normal heart rate and rhythm. Pulses normal. Respiratory: No respiratory distress. Equal air entry bilateral, no wheezing/rales/rhonchi Abdomen: Soft, mild discomfort diffuse Bowel sounds are present, no mass palpable, no CVA tenderness Skin: Skin warm and dry. Normal skin color. Normal skin turgor. Extremities: No lower extremity edema. No calf tenderness Neuro: Oriented X 3. Medications Administered Discontinued Medications Generic Name Dose Route Start Last Admin Trade Name Freq PRN Reason Stop Dose Admin Dicyclomine HCl 20 mg 05/25/22 05:01 05/25/22 05:08 Dicyclomine Hcl 10 Mg Capsule PO 05/25/22 05:02 20 mg ONCE ONE Administration Ondansetron HCl 4 mg 05/25/22 01:09 05/25/22 01:38 Ondansetron Odt 4 Mg Tab.Rapdis TRANSLINGU 05/25/22 01:10 4 mg ONCE ONE Administration Oxycodone HCl 10 mg 05/25/22 01:09 05/25/22 01:39 Oxycodone Hcl Immed Release 5 Mg Tablet PO 05/25/22 01:10 10 mg ONCE ONE Administration Medical Decision Making Medical Decision Making [facility] Narrative: Patient with diarrhea after constipation after patient took laxatives normal WBC count clinically not to get the stool sample but patient did not have any bowel movement in the ER patient nontoxic look discharge patient home advised follow- up with PCP patient was given outpatient script for stool sample to be tested patient has a follow-up plan to see her PCP in 2 days Lab Data MDM Lab Attestation statement: I reviewed the patient's lab results. 05/24/22 20:34 05/24/22 20:34 Labs: Lab Results 05/24/22 05/24/22 05/24/22 Range/Units 20:19 20:19 20:34 WBC 6.3 (4.8-10.8) X10*3/uL RBC 4.28 (4.20-5.50) X10*6/uL Hgb 12.9 (12.0-16.0) g/dl Hct 37.9 (37.0-47.0) % MCV 88.6 (80.0-98.0) fL MCH 30.1 (27.0-33.0) pg MCHC 34.0 (31.0-35.0) g/dl RDW 12.3 (11.0-16.0) % Plt Count 257 (160-400) X10*3/uL MPV 9.2 L (9.4-12.3) fL Immature Gran % (Auto) 0.2 (0.0-0.4) % Neut % (Auto) 59.6 (45-73) % Lymph % (Auto) 35.4 (20-40) % Greenlee % (Auto) 4.3 (2-11) % Eos % (Auto) 0.2 (0-4) % Baso % (Auto) 0.3 (0-2) % Lymph # (Auto) 2.2 (1.2-4.9) X10*3/uL Greenlee # (Auto) 0.3 (0.1-1.2) X10*3/uL Eos # (Auto) 0.0 (0.0-0.4) X10*3/uL Baso # (Auto) 0.0 (0.0-0.2) X10*3/uL Abs Immat Gran (auto) 0.01 (0.00-0.03) X10*3/uL Absolute Neuts (auto) 3.8 (2.0-8.3) x10*3/uL Absolute Nucleated RBC 0.000 (0.0-0.012) X10*3/uL Nucleated RBC % (auto) 0.0 (0.0-0.2) /100WBC Sodium (135-145) mmol/L Potassium (3.3-5.1) mmol/L Chloride (96-108) mmol/L Carbon Dioxide (22-29) mmol/L Anion Gap (12-20) BUN (9-16) mg/dL Creatinine (0.5-1.4) mg/dL Estim Creat Clear Calc Estimated GFR Random Glucose (60-115) mg/dL Calcium (8.4-10.2) mg/dL Total Bilirubin (0.0-1.0) mg/dL Direct Bilirubin (0.0-0.5) mg/dL AST (5-31) U/L ALT (0-31) U/L Alkaline Phosphatase (39-117) U/L Total Protein (6.5-8.0) g/dL Albumin (3.5-5.0) g/dL Lipase (8-78) U/L Urine Color Yellow Urine Appearance Clear Urine pH 5.5 (5.0-9.0) Ur Specific Blackwell 1.020 (1.005-1.025) Urine Protein Negative (Neg-Trace) mg/dL Urine Glucose (UA) Negative (Negative) mg/dL Urine Ketones Negative (Negative) mg/dL Urine Blood Negative (Negative) Urine Nitrite Negative (Negative) Ur Leukocyte Esterase Negative (Negative) Urine Test NEGATIVE (NEGATIVE) 05/24/22 Range/Units 20:34 WBC (4.8-10.8) X10*3/uL RBC (4.20-5.50) X10*6/uL Hgb (12.0-16.0) g/dl Hct (37.0-47.0) % MCV (80.0-98.0) fL MCH (27.0-33.0) pg MCHC (31.0-35.0) g/dl RDW (11.0-16.0) % Plt Count (160-400) X10*3/uL MPV (9.4-12.3) fL Immature Gran % (Auto) (0.0-0.4) % Neut % (Auto) (45-73) % Lymph % (Auto) (20-40) % Greenlee % (Auto) (2-11) % Eos % (Auto) (0-4) % Baso % (Auto) (0-2) % Lymph # (Auto) (1.2-4.9) X10*3/uL Greenlee # (Auto) (0.1-1.2) X10*3/uL Eos # (Auto) (0.0-0.4) X10*3/uL Baso # (Auto) (0.0-0.2) X10*3/uL Abs Immat Gran (auto) (0.00-0.03) X10*3/uL Absolute Neuts (auto) (2.0-8.3) x10*3/uL Absolute Nucleated RBC (0.0-0.012) X10*3/uL Nucleated RBC % (auto) (0.0-0.2) /100WBC Sodium 140 (135-145) mmol/L Potassium 3.6 (3.3-5.1) mmol/L Chloride 108 (96-108) mmol/L Carbon Dioxide 22 (22-29) mmol/L Anion Gap 14 (12-20) BUN 13 (9-16) mg/dL Creatinine 0.98 (0.5-1.4) mg/dL Estim Creat Clear Calc 80.9 Estimated GFR > 60 Random Glucose 129 H (60-115) mg/dL Calcium 9.1 (8.4-10.2) mg/dL Total Bilirubin 0.7 (0.0-1.0) mg/dL Direct Bilirubin 0.2 (0.0-0.5) mg/dL AST 14 (5-31) U/L ALT 15 (0-31) U/L Alkaline Phosphatase 58 (39-117) U/L Total Protein 7.3 (6.5-8.0) g/dL Albumin 4.4 (3.5-5.0) g/dL Lipase 18 (8-78) U/L Urine Color Urine Appearance Urine pH (5.0-9.0) Ur Specific Blackwell (1.005-1.025) Urine Protein (Neg-Trace) mg/dL Urine Glucose (UA) (Negative) mg/dL Urine Ketones (Negative) mg/dL Urine Blood (Negative) Urine Nitrite (Negative) Ur Leukocyte Esterase (Negative) Urine Test (NEGATIVE) Discharge Plan Discharge Clinical Impression: Gastroenteritis Patient Disposition: Home, Self-Care Instructions: Gastroenteritis (ED) Additional Instructions: Drink plenty of fluids Check the stool for C diff if diarrhea continues as advised Nausea medication as prescribed Beber mucho l?quido Revise las heces para C diff si la diarrea contin?a seg?n lo recomendado Medicamentos para las n?useas seg?n lo prescrito Prescriptions: New ondansetron 4 mg tablet,disintegrating 4 mg PO Q6-8H PRN (Reason: nausea and vomiting) Qty: 7 0RF dicyclomine 20 mg tablet 20 mg PO TID Qty: 20 0RF No Action dicyclomine 20 mg tablet 40 mg PO QID 30 Days Qty: 240 3RF senna 8.6 mg capsule 17.2 mg PO BEDTIME 30 Days Qty: 60 3RF ibuprofen 800 mg tablet 800 mg PO Q8H PRN (Reason: pain) Qty: 20 0RF loperamide [Imodium A-D] 2 mg capsule 2 mg PO Q6H PRN (Reason: loose stool) Qty: 14 0RF hydrocortisone [Proctosol HC] 2.5 % cream with perineal applicator 1 appl [place] BID PRN (Reason: hemorrhoids) Qty: 30 0RF pantoprazole 40 mg tablet,delayed release (DR/EC) 40 mg PO BID Qty: 60 6RF ondansetron 4 mg tablet,disintegrating 4 mg PO BID-TID Qty: 90 3RF Hold Instructions: Doctor's Order famotidine 20 mg tablet 20 mg PO QPM diphenhydramine HCl [Banophen] 25 mg capsule 25 - 50 mg PO BEDTIME PRN (Reason: insomnia) ketotifen fumarate 0.025 % (0.035 %) drops 1 drp ophthalmic (eye) BID albuterol sulfate 2.5 mg /3 mL (0.083 %) solution for nebulization inhalation Q4-6H calcium carbonate [Antacid Ext Str (calcium carb)] 300 mg (750 mg) tablet,chewable 1 - 2 tab PO DIRECTED ondansetron HCl 8 mg tablet 8 mg PO TID 30 Days Qty: 90 3RF magnesium hydroxide [Milk of Magnesia] 400 mg/5 mL suspension 5 ml PO BEDTIME Qty: 355 3RF topiramate 25 mg tablet 25 mg PO BEDTIME cholecalciferol (vitamin D3) 50 mcg (2,000 unit) tablet 50 mcg PO QAM fluticasone propionate [Flovent HFA] 220 mcg/actuation HFA aerosol inhaler 1 puff inhalation BID montelukast 10 mg tablet 10 mg PO QPM Tab-A-Kisha Multivitamin w-iron 15 mg iron- 400 mcg tablet 1 tab PO QAM ropinirole 4 mg tablet 4 mg PO BEDTIME loratadine [Allergy Relief (loratadine)] 10 mg tablet 10 mg PO DAILY fluticasone propionate 50 mcg/actuation spray,suspension 2 spray intranasal DAILY fluoxetine 20 mg capsule 40 mg PO QAM quetiapine 100 mg tablet 50 mg PO BID PRN riboflavin (vitamin B2) [Vitamin B-2] 100 mg tablet 400 mg PO DAILY quetiapine 300 mg tablet 600 mg PO BEDTIME clonazepam 1 mg tablet 1 mg PO Interventions: ED Discharge Assessment Last Done: 05/25/22 05:09 Discharge Date/Time: 05/25/22 05:09 Print Language: Nepali
[2022-05-25] MEDS: Ondansetron ODT 4 MG TAB.RAPDIS TRANSLINGU (01:38)
[2022-05-25] MEDS: oxyCODONE HCl Immed Release 5 MG TABLET 10 MG PO (01:39)
[2022-05-25 04:48] VITALS: BP 117/67; PULSE 87; RESP 18; TEMP 36.7; O2SAT 97
[2022-05-25] MEDS: Dicyclomine HCl 10 MG CAPSULE 20 MG PO (05:08)
== END 2022-05-25 05:09 | disposition home or self-care (01) ==
PROVIDERS: Emergency Provider Internal Medicine; PCP General Practice
DX: K52.9 Noninfective gastroenteritis and colitis, unspecified (principal); F12.90 Cannabis use, unspecified, uncomplicated; Z79.899 Other long term (current) drug therapy
CPT/HCPCS: 36415; 80048; 80076; 81003; 81025; 83690; 85025; 99283; 99284

== ENCOUNTER 2022-05-25 14:11 | Outpatient (REF) | payer MEDICAID, SELFPAY ==
--- NOTE | ~2022-05-25 | XR_ITS ---
EXAMINATION: XR ABDOMEN WITH DECUBITUS VIEWS CLINICAL INDICATION: Abdominal pain COMPARISON: None TECHNIQUE: Supine and upright views of the abdomen and pelvis FINDINGS: The bowel gas pattern is normal with no evidence of ileus or obstruction. No free air. No unusual soft tissue calcifications are noted. IUD in the pelvis. The bones are unremarkable. XR/XR abdomen w decubitus IMPRESSION: Unremarkable examination.
[2022-05-25 16:32] LABS: C Reactive Protein < 0.10 mg/dL (< or = 0.50)
== END 2022-05-25 14:12 | disposition home or self-care (01) ==
LOC: HO.LAB 14:11
PROVIDERS: PCP General Practice; Referring Provider General Practice; Visit Provider Nurse Practitioner
DX: R10.9 Unspecified abdominal pain (principal); R19.7 Diarrhea, unspecified; M54.9 Dorsalgia, unspecified; R11.2 Nausea with vomiting, unspecified; A04.72 Enterocolitis due to Clostridium difficile, not specified as recurrent; K21.9 Gastro-esophageal reflux disease without esophagitis
CPT/HCPCS: 36415; 74021; 86140; 99212

== ENCOUNTER 2022-05-26 10:29 | Outpatient (REF) | payer MEDICAID, SELFPAY ==
[2022-05-26 12:02] LABS: CDiff Gene PCR NEGATIVE (Negative)
[2022-05-26 12:41] LABS: Adenovirus F 40/41 Not Detected (Not Detect.); Astrovirus Not Detected (Not Detect.); Campylobacter Not Detected (Not Detect.); Cryptosporidium Not Detected (Not Detect.); Cyclospora cayetanensis Not Detected (Not Detect.); E. coli EAEC Not Detected (Not Detect.); E. coli EPEC Not Detected (Not Detect.); E. coli ETEC Not Detected (Not Detect.); E. coli STEC Not Detected (Not Detect.); Entamoeba histolytica Not Detected (Not Detect.); Giardia lamblia Not Detected (Not Detect.); Norovirus GI/GII Not Detected (Not Detect.); Plesiomonas shigelloides Not Detected (Not Detect.); Rotavirus A Not Detected (Not Detect.); Salmonella Not Detected (Not Detect.); Sapovirus Not Detected (Not Detect.); Shigella sp./EIEC Not Detected (Not Detect.); Vibrio Not Detected (Not Detect.); Vibrio Cholerae Not Detected (Not Detect.); Yersinia enterocolitica Not Detected (Not Detect.)
== END 2022-05-26 10:30 | disposition home or self-care (01) ==
LOC: HO.LNP 10:29
PROVIDERS: Visit Provider Nurse Practitioner
DX: A04.72 Enterocolitis due to Clostridium difficile, not specified as recurrent (principal); R19.7 Diarrhea, unspecified; R10.9 Unspecified abdominal pain
CPT/HCPCS: 87493; 87507

== ENCOUNTER → 2022-07-21 08:37 | Outpatient (BNVA) | payer MEDICAID, SELFPAY | PROVIDERS: PCP General Practice; Visit Provider Nurse Practitioner | DX: K58.0 Irritable bowel syndrome with diarrhea (principal); K21.9 Gastro-esophageal reflux disease without esophagitis; R11.2 Nausea with vomiting, unspecified | CPT/HCPCS: 99212 ==

== ENCOUNTER 2022-08-14 05:00 | Emergency (ER) | payer MEDICAID, SELFPAY ==
--- NOTE | ~2022-08-14 | XR_ITS ---
EXAMINATION: XR PELVIS XR KNEE-BILATERAL CLINICAL INFORMATION: Pain. COMPARISON: None. TECHNIQUE: Single frontal view of the pelvis and 4 views each of both knees were obtained. FINDINGS: Pelvis: The bony alignment is intact. The cortices are intact. Incidental note is made of presence of transitional lumbar vertebrae with features of partial sacralization seen bilaterally note is also made of presence of IUCD, appear in good position at midline. Soft tissues are unremarkable. Right knee: The bony alignments are intact. The cortices are intact. Articular margins, joint space appear unremarkable. No evidence of any effusion. Soft tissues are unremarkable. Left knee: The bony alignments are intact. The cortices are intact. Articular margins, joint space and periarticular soft tissues are unremarkable. XR/XR pelvis 1-2V IMPRESSION: 1. Unremarkable radiographic appearance of the pelvis and both knees. 2. Incidental note is made of presence of transitional lumbar vertebra with features of partial sacralization seen bilaterally.
--- NOTE | ~2022-08-14 | XR_ITS ---
EXAMINATION: XR PELVIS XR KNEE-BILATERAL CLINICAL INFORMATION: Pain. COMPARISON: None. TECHNIQUE: Single frontal view of the pelvis and 4 views each of both knees were obtained. FINDINGS: Pelvis: The bony alignment is intact. The cortices are intact. Incidental note is made of presence of transitional lumbar vertebrae with features of partial sacralization seen bilaterally note is also made of presence of IUCD, appear in good position at midline. Soft tissues are unremarkable. Right knee: The bony alignments are intact. The cortices are intact. Articular margins, joint space appear unremarkable. No evidence of any effusion. Soft tissues are unremarkable. Left knee: The bony alignments are intact. The cortices are intact. Articular margins, joint space and periarticular soft tissues are unremarkable. XR/XR knee RT 3V IMPRESSION: 1. Unremarkable radiographic appearance of the pelvis and both knees. 2. Incidental note is made of presence of transitional lumbar vertebra with features of partial sacralization seen bilaterally.
--- NOTE | ~2022-08-14 | CT_ITS ---
EXAMINATION: CT HEAD WITHOUT CONTRAST CLINICAL INFORMATION: Head injury. Fall off skateboard. COMPARISON: CT of the head done on 09/08/2019. TECHNIQUE: Contiguous axial imaging was performed from the skull base to vertex without intravenous administration of contrast. This CT examination was performed using dose optimization techniques as appropriate, variously including the following: *Automated exposure control *Adjustment of mA and/or kV according to patient size (this includes techniques or standardized protocols for targeted exams where dose is matched to indication/reason for exam; i.e. extremities or head) *Use of iterative reconstruction technique DLP: 562.63 mGy-cm FINDINGS: There is no evidence of acute intracranial hemorrhage or territorial infarction. No abnormal mass effect or midline shift is seen. Whitfield to white matter differentiation is well preserved. No extra-axial fluid collections are identified. No significant volume loss. No hydrocephalus. There is no abnormal attenuation within the brain parenchyma. The osseous structures and soft tissues are normal. The mastoid air cells are well aerated. Soft tissue fullness is seen within the visualized superior most part of both nasal cavities, new since prior study dated 09/08/2019, may represent posttraumatic versus inflammatory changes. CT/CT head/brain wo IV con IMPRESSION: 1. No acute intracranial pathology. 2. Soft tissue fullness is seen within the visualized included superior most part of both nasal cavities, new since the prior study dated , may represent posttraumatic versus inflammatory changes.
--- NOTE | ~2022-08-14 | XR_ITS ---
EXAMINATION: XR PELVIS XR KNEE-BILATERAL CLINICAL INFORMATION: Pain. COMPARISON: None. TECHNIQUE: Single frontal view of the pelvis and 4 views each of both knees were obtained. FINDINGS: Pelvis: The bony alignment is intact. The cortices are intact. Incidental note is made of presence of transitional lumbar vertebrae with features of partial sacralization seen bilaterally note is also made of presence of IUCD, appear in good position at midline. Soft tissues are unremarkable. Right knee: The bony alignments are intact. The cortices are intact. Articular margins, joint space appear unremarkable. No evidence of any effusion. Soft tissues are unremarkable. Left knee: The bony alignments are intact. The cortices are intact. Articular margins, joint space and periarticular soft tissues are unremarkable. XR/XR knee LT 3V IMPRESSION: 1. Unremarkable radiographic appearance of the pelvis and both knees. 2. Incidental note is made of presence of transitional lumbar vertebra with features of partial sacralization seen bilaterally.
[2022-08-14 05:09] VITALS: BP 119/58; PULSE 91; RESP 18; TEMP 36.4; O2SAT 99; BMI 22.7
--- OUTSIDE RECORDS SUMMARY | 2022-08-14 05:45 | XMS_ITS | Continuity of Care Document ---
Author Name Unknown Organization [facility] Address [address] [place] [id number] Care Team Providers Care It Account Manager Name Role Phone Ephraim Shaw NP [id number] - 08/13/[address] [id number]- Attending Physician: Jessi Dueñas MD Admitting Physician: Jessi Dueñas MD Referring Physician: Jessi Dueñas MD Patient Care team information Care Team Personnel Name: Ephraim Shaw NP Position: [facility] Outreach Member Role: PCP Address: Address: [address] [place] [id number]- Care Team Related Persons Name: SHREYA OLIVAS Address: home [address] [address]
--- OUTSIDE RECORDS SUMMARY | 2022-08-14 05:45 | XMS_ITS | Continuity of Care Document ---
Author Name Unknown Organization [facility] Address [address] [facility], [address] Floor, [address] [place] [id number]- Care Team Providers Care Wireless Consultant Name Role Phone Colin LOPEZ, Ephraim Buckner Primary Care Physician Encounter [facility] [place] Date(s): 02/04/20 - 04/30/20 [facility] [address] [facility], [address]rd Floor, [address] [place] [id number] Attending Physician: Johnna Quiñones Admitting Physician: Johnna Quiñones Referring Physician: Ephraim Shaw NP
--- NOTE | 2022-08-14 06:26 | ED_ITS ---
HPI - Fall General Chief Complaint: Fall Stated Complaint: Fall Time Seen by Provider: 08/14/22 05:33 History of Present Illness HPI Narrative: Patient is a 41-year-old female status post accidental fall. Fell down some stairs. Hitting her head. There was no loss of consciousness. Complaining of extreme headache since. No nausea no vomiting. No focal weakness. Positive abrasion to the right frontal/ temporal area. Positive contusion to bilateral knees and also to the left hip. Patient not on blood thinners. Related Data Home Medications Medication Instructions Recorded Confirmed cholecalciferol (vitamin D3) 50 50 mcg PO QAM 01/06/22 mcg (2,000 unit) tablet fluoxetine 20 mg capsule 40 mg PO QAM 01/06/22 fluticasone propionate 220 1 puff inhalation BID 01/06/22 mcg/actuation HFA aerosol inhaler (Flovent HFA) fluticasone propionate 50 2 spray intranasal DAILY 01/06/22 mcg/actuation nasal spray,suspension loratadine 10 mg tablet (Allergy 10 mg PO DAILY 01/06/22 Relief (loratadine)) montelukast 10 mg tablet 10 mg PO QPM asthma 01/06/22 multivitamin-iron sulfate 15 1 tab PO QAM 01/06/22 mg-folic acid 400 mcg tablet (Tab-A-Kisha Multivitamin w-iron) riboflavin (vitamin B2) 100 mg 400 mg PO DAILY 01/06/22 tablet (Vitamin B-2) ropinirole 4 mg tablet 4 mg PO BEDTIME 01/06/22 topiramate 25 mg tablet 25 mg PO BEDTIME 01/06/22 albuterol sulfate 2.5 mg/3 mL mg inhalation Q4-6H 04/01/22 (0.083 %) solution for nebulization calcium carbonate 300 mg (750 mg) 1 - 2 tab PO DIRECTED 04/01/22 chewable tablet (Antacid Extra Strength (calcium carb)) clonazepam 1 mg tablet 1 mg PO 04/01/22 diphenhydramine HCl 25 mg capsule 25 - 50 mg PO BEDTIME PRN insomnia 04/01/22 (Banophen) famotidine 20 mg tablet 20 mg PO QPM 04/01/22 ketotifen fumarate 0.025 % (0.035 1 drp ophthalmic (eye) BID 04/01/22 %) eye drops quetiapine 100 mg tablet 100 mg PO BID PRN 07/21/22 quetiapine 300 mg tablet 300 mg PO BEDTIME 07/21/22 Previous Rx's Medication Instructions Recorded ibuprofen 800 mg tablet 800 mg PO Q8H PRN pain #20 tabs 03/02/21 loperamide 2 mg capsule (Imodium 2 mg PO Q6H PRN loose stool #14 06/29/21 A-D) caps hydrocortisone 2.5 % topical cream 1 appl [place] BID PRN hemorrhoids #30 02/02/22 with perineal applicator grams (Proctosol HC) ondansetron 4 mg disintegrating 4 mg PO BID-TID nausea and 03/16/22 tablet vomiting #90 tabs pantoprazole 40 mg tablet,delayed 40 mg PO BID #60 tabs 03/16/22 release magnesium hydroxide 400 mg/5 mL 5 ml PO BEDTIME #355 mL 04/01/22 oral suspension (Milk of Magnesia) ondansetron HCl 8 mg tablet 8 mg PO TID 30 days #90 tabs 04/01/22 sennosides 8.6 mg capsule (senna) 17.2 mg PO BEDTIME constipation 30 05/20/22 days #60 caps ondansetron 4 mg disintegrating 4 mg PO Q6-8H PRN nausea and 05/25/22 tablet vomiting #7 tabs dicyclomine 20 mg tablet 40 mg PO QID 30 days #240 tabs 07/01/22 imipramine HCl 10 mg tablet 10 mg PO BEDTIME 30 days #30 tabs 07/21/22 metoclopramide HCl 5 mg tablet 5 mg PO QIDACHS #120 tabs 07/21/22 (Reglan) ibuprofen 400 mg tablet 400 mg PO Q6H PRN pain #20 tabs 08/14/22 Allergies Allergy/AdvReac Type Severity Reaction Status Date / Time shellfish derived Allergy Unknown swelling Verified 08/14/22 05:13 [SHELLFISH DERIVED] morphine Allergy Itching Verified 08/14/22 05:13 Review of Systems Review of Systems: A fever no chills no chest pain and shortness of breath nausea vomiting. Ambulates without any difficulties Yes all other systems are reviewed and are negative PMFSH Past Medical History Attestation statement: The following information was validated with the patient. Medical History Constipation Diarrhea Surgical History H/O colonoscopy History of section History of tubal ligation Social History Social History Alcohol intake: never Patient Tobacco Use Status: Never used Tobacco Smoked in Last 30 Days: No Use of substances other than those prescribed or required for medical reasons: No Substance Use Type: Marijuana Advance Directives: No Advance Directives Information Provided: Yes Patient : No Physical Exam Vital Signs: Vital Signs: Last Vital Signs Temp 97.6 F 08/14/22 05:09 Pulse 91 08/14/22 05:09 Resp 18 08/14/22 05:09 BP 119/58 L 08/14/22 05:09 Pulse Ox 99 08/14/22 05:09 O2 Del Method Room Air 08/14/22 05:09 BMI result Body Mass Index 22.7 Appearance: Alert. Oriented X3. No acute distress. Positive abrasion to the right temporal frontal area. There is no midface tenderness. There is no malocclusion noted. Eyes: Pupils equal, round and reactive to light. ENT: Pharynx normal. Neck: Normal inspection. Neck supple. No lymph nodes noted. No crepitus. No posterior C-spine tenderness. Trachea midline CVS: Normal heart rate and rhythm. Pulses normal. Normal S1 and S2 Respiratory: No respiratory distress. Breath sounds normal. No Wheezing. No rales Abdomen: Soft and nontender. No rigidity. No distention. good BS x4 Skin: Skin warm and dry. Normal skin color. Normal skin turgor. Extremities: Positive contusion/ abrasion to bilateral knees. Wrecked flexion extension of both knees are intact. pulses 2+ at dorsalis pedis. Sensation over the feet intact. Pulses Neuro: Oriented X 3. No motor deficit. No sensory deficit. Moving all extermities. No slurred speech Medications Administered Discontinued Medications Generic Name Dose Route Start Last Admin Trade Name Freq PRN Reason Stop Dose Admin Diphtheria/Tetanus/Acell Pertussis 0.5 ml 08/14/22 06:30 08/14/22 06:49 Diphth,Pertus(Acell),Tet Adult 0.5 Ml Syringe IM 08/14/22 06:31 0.5 ml .ONCE ONE Administration Medical Decision Making Medical Decision Making [facility] Narrative: Patient status post fall. There is no loss of consciousness. No nausea no vomiting. However patient complaining of extreme headaches coming on after the fall. She hit her head near the temporal area. CT scan of the head was done. There is no gross evidence of bleeding. No fracture noted. X-ray of the bilateral knee grossly negative for any acute fracture. Pelvis x-ray negative. Patient ambulatory. Will have patient take Motrin follow up on an outpatient basis tetanus updated. Patient stated that she is not . She had tubal ligation over 20 years ago and is not sexually active Differential Diagnosis Contusion, head injury, intracranial bleed, fracture, bilateral knee sprain. Pelvic fracture Independent Interpretation I performed an independent interpretation of an: Plain X-Ray and CT Scan Interpretation: CT the head was grossly negative for any acute evidence of bleeding or fracture Plain film of the bilateral knee grossly negative for any acute evidence of fracture X-ray the pelvis showed no acute fracture Radiology Impression Discussion of test interpretation with radiology: I have reviewed the radiologist's reading. Discharge Plan Discharge Clinical Impression: Head injury, Contusion Patient Disposition: Home, Self-Care Instructions: Head Injury (ED), Contusion in Adults (ED) Prescriptions: New ibuprofen 400 mg tablet 400 mg PO Q6H PRN (Reason: pain) Qty: 20 0RF No Action senna 8.6 mg capsule 17.2 mg PO BEDTIME 30 Days Qty: 60 3RF dicyclomine 20 mg tablet 40 mg PO QID 30 Days Qty: 240 3RF Hold Instructions: Doctor's Order ibuprofen 800 mg tablet 800 mg PO Q8H PRN (Reason: pain) Qty: 20 0RF loperamide [Imodium A-D] 2 mg capsule 2 mg PO Q6H PRN (Reason: loose stool) Qty: 14 0RF ondansetron 4 mg tablet,disintegrating 4 mg PO Q6-8H PRN (Reason: nausea and vomiting) Qty: 7 0RF hydrocortisone [Proctosol HC] 2.5 % cream with perineal applicator 1 appl [place] BID PRN (Reason: hemorrhoids) Qty: 30 0RF pantoprazole 40 mg tablet,delayed release (DR/EC) 40 mg PO BID Qty: 60 6RF ondansetron 4 mg tablet,disintegrating 4 mg PO BID-TID Qty: 90 3RF Hold Instructions: Doctor's Order famotidine 20 mg tablet 20 mg PO QPM diphenhydramine HCl [Banophen] 25 mg capsule 25 - 50 mg PO BEDTIME PRN (Reason: insomnia) ketotifen fumarate 0.025 % (0.035 %) drops 1 drp ophthalmic (eye) BID albuterol sulfate 2.5 mg /3 mL (0.083 %) solution for nebulization inhalation Q4-6H calcium carbonate [Antacid Ext Str (calcium carb)] 300 mg (750 mg) tablet,chewable 1 - 2 tab PO DIRECTED ondansetron HCl 8 mg tablet 8 mg PO TID 30 Days Qty: 90 3RF magnesium hydroxide [Milk of Magnesia] 400 mg/5 mL suspension 5 ml PO BEDTIME Qty: 355 3RF topiramate 25 mg tablet 25 mg PO BEDTIME cholecalciferol (vitamin D3) 50 mcg (2,000 unit) tablet 50 mcg PO QAM fluticasone propionate [Flovent HFA] 220 mcg/actuation HFA aerosol inhaler 1 puff inhalation BID montelukast 10 mg tablet 10 mg PO QPM Tab-A-Kisha Multivitamin w-iron 15 mg iron- 400 mcg tablet 1 tab PO QAM ropinirole 4 mg tablet 4 mg PO BEDTIME loratadine [Allergy Relief (loratadine)] 10 mg tablet 10 mg PO DAILY fluticasone propionate 50 mcg/actuation spray,suspension 2 spray intranasal DAILY fluoxetine 20 mg capsule 40 mg PO QAM riboflavin (vitamin B2) [Vitamin B-2] 100 mg tablet 400 mg PO DAILY clonazepam 1 mg tablet 1 mg PO quetiapine 300 mg tablet 300 mg PO BEDTIME quetiapine 100 mg tablet 100 mg PO BID PRN imipramine HCl 10 mg tablet 10 mg PO BEDTIME 30 Days Qty: 30 1RF metoclopramide HCl [Reglan] 5 mg tablet 5 mg PO QIDACHS Qty: 120 3RF Referrals: Jessi Dueñas MD [Primary Care Provider] - 08/16/22
[2022-08-14] MEDS: Diphth,Pertus(ACell),Tet Adult 0.5 ML SYRINGE IM (06:49)
[2022-08-14] MEDS: Ibuprofen 400 MG TABLET PO (07:31)
[2022-08-14 07:34] VITALS: BP 98/62; PULSE 83; RESP 18; TEMP 36.5; O2SAT 99
--- NOTE | 2022-08-14 07:35 | PC.NURSE ---
assumed care of this pt at 0700. pt a&o x4, mainly urdu speaking. pt has bilateral knee bruising and small R sided forehead laceration. pt reporting 10/10 pain to lower back, head, and bilateral knees. pt x-rays and CT scan completed. pt medicated per jun. vss. tm
== END 2022-08-14 08:33 | disposition home or self-care (01) ==
PROVIDERS: Emergency Provider Emergency Medicine Emergency Medical Services; PCP General Practice
DX: S00.93XA Contusion of unspecified part of head, initial encounter (principal); S80.212A Abrasion, left knee, initial encounter; S80.211A Abrasion, right knee, initial encounter; R51.9 Headache, unspecified; M25.562 Pain in left knee; M25.561 Pain in right knee; R10.2 Pelvic and perineal pain; W10.9XXA Fall (on) (from) unspecified stairs and steps, initial encounter; Y93.9 Activity, unspecified; Y92.9 Unspecified place or not applicable; Y99.9 Unspecified external cause status; Z79.899 Other long term (current) drug therapy; Z23 Encounter for immunization
CPT/HCPCS: 70450; 72170; 73562; 90471; 90715; 99284

== ENCOUNTER 2022-10-19 15:00 | Outpatient (RCR) | payer MEDICAID, SELFPAY | END 2022-10-31 10:38 | disposition home or self-care (01) | LOC: HO.PT 15:00 | PROVIDERS: PCP General Practice; Visit Provider General Practice | DX: F07.81 Postconcussional syndrome (principal) | CPT/HCPCS: 97110; 97162 ==

== ENCOUNTER 2022-11-23 01:32 | Emergency (ER) | payer MEDICAID, SELFPAY ==
[2022-11-23 02:25] VITALS: BP 104/59; PULSE 61; RESP 16; TEMP 36.7; O2SAT 100; BMI 22.2
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
[2022-11-23] MEDS: traMADoL HCL 50 MG TABLET PO (04:01)
== END 2022-11-23 04:03 | disposition home or self-care (01) ==
PROVIDERS: Emergency Provider Internal Medicine; PCP General Practice
DX: M54.50 Low back pain, unspecified (principal); G89.29 Other chronic pain; Z79.899 Other long term (current) drug therapy; F12.90 Cannabis use, unspecified, uncomplicated
CPT/HCPCS: 99283

== ENCOUNTER 2022-12-23 11:30 | Outpatient (REF) | payer MEDICAID, SELFPAY ==
[2022-12-23 13:03] LABS: MANUAL DIFF FLAG NO
[2022-12-23 13:30] LABS: Basophils Percent Auto 0.4 % (0-2); Eosinophils Percent Auto 0.1 % (0-4); Hemoglobin 13.7 g/dl (12.0-16.0); Imm Gran Abs Auto 0.01 X10*3/uL (0.00-0.03); Imm Gran Pct Auto 0.1 % (0.0-0.4); Lymphocytes Absolute Auto 1.8 X10*3/uL (1.2-4.9); Lymphocytes Percent Auto 25.7 % (20-40); Mean Corpuscular HGB Conc 33.4 g/dl (31.0-35.0); Mean Corpuscular Volume 92.8 fL (80.0-98.0); Mean Platelet Volume 9.9 fL (9.4-12.3); Monocytes Absolute Auto 0.5 X10*3/uL (0.1-1.2); Monocytes Percent Auto 7.2 % (2-11); Neutrophils Absolute Auto 4.7 x10*3/uL (2.0-8.3); Neutrophils Percent Auto 66.5 % (45-73); Platelet Count 264 X10*3/uL (160-400); Red Blood Count 4.42 X10*6/uL (4.20-5.50); Red Cell Distribution Width 13.2 % (11.0-16.0); White Blood Count 7.1 X10*3/uL (4.8-10.8)
[2022-12-23 13:38] LABS: Appearance Urine Clear; Color Urine Yellow; Glucose Urine UA Negative (Negative); Leukocyte Esterase Urine Small (1+) (Negative); Nitrite Urine Negative (Negative); UMIC TRIGGER UACC YES; Urine Blood Trace (Negative); Urine Ketones Negative (Negative); Urine Protein Negative (Neg-Trace)
[2022-12-23 13:42] LABS: Bacteria Urine Trace (None Seen); Hyaline Casts Urine 0-2 /LPF (0-2); UACC Culture Trigger YES; WBC Urine 21-50 /HPF (0-5)
[2022-12-23 14:28] LABS: Alanine Aminotransferase 17 U/L (0-31); Albumin Level 4.4 g/dL (3.5-5.0); Alkaline Phosphatase 54 U/L (39-117); Anion Gap 13 (12-20); Aspartate Amino Transferase 16 U/L (5-31); Bilirubin Total 0.7 mg/dL (0.0-1.0); Blood Urea Nitrogen 8 mg/dL (9-16); Calcium 9.2 mg/dL (8.4-10.2); Carbon Dioxide 23 mmol/L (22-29); Chloride 109 mmol/L (96-108); Estimated Glomerular Filt Rate > 60; Ferritin 94 ng/mL (10-250); Glucose Random 106 mg/dL (60-115); Potassium 3.6 mmol/L (3.3-5.1); Sodium 141 mmol/L (135-145); TSH reflex Free T4 1.07 uIU/mL (0.32-4.0); Total Protein 7.3 g/dL (6.5-8.0)
== END 2022-12-23 11:31 | disposition home or self-care (01) ==
LOC: HO.LAB 11:30
PROVIDERS: PCP General Practice; Visit Provider Nurse Practitioner
DX: K58.0 Irritable bowel syndrome with diarrhea (principal); R10.9 Unspecified abdominal pain; R63.4 Abnormal weight loss; R11.2 Nausea with vomiting, unspecified
CPT/HCPCS: 36415; 80053; 81001; 82728; 84443; 85025; 87086; 99212

== ENCOUNTER 2022-12-23 11:30 | Outpatient (AMB) | payer MEDICAID, SELFPAY ==
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
[2022-12-23 11:38] VITALS: BP 110/55; PULSE 83; BMI 21.1
== END 2022-12-23 12:44 | disposition home or self-care (01) ==
PROVIDERS: PCP General Practice; Visit Provider Nurse Practitioner
DX: R10.9 Unspecified abdominal pain (principal); R11.2 Nausea with vomiting, unspecified; R63.4 Abnormal weight loss
CPT/HCPCS: 99214

== ENCOUNTER 2023-01-17 11:05 | Outpatient (AMB) | payer MEDICAID, SELFPAY ==
--- NOTE | 2023-01-17 11:08 | MHC.OFFVIS ---
Intake Vital Signs 01/17/23 11:11 Height 5 ft 7 in Weight 134 lb 14.766 oz BMI 21.1 BP 108/59 L Blood Pressure Location Lt brachial Position Sitting Pulse 72 Intake Visit Reasons: 3 week follow up Intake Note: Patient follow up for labs and diarrhea. CC: Patient c/o abdominal pain and cramps, poor appetite, diarrhea, nausea, and vomiting. She also reports seeing blood in the stool yesterday. Patient states she would like to receive IV vitamin infusions. She states she is very concerned about her health and weight loss. She is also requesting a letter to be able to get pull ups for fecal incontinence. Cellulose Insulation Helper Required: Yes Accompanied by: Self / Same As Patient Allergies shellfish derived [SHELLFISH DERIVED] Allergy (Unknown, Verified 01/17/23 11:16) swelling morphine Allergy (Verified 01/17/23 11:16) Itching HPI 3 week follow up HPI Details Assessment & Plan (1) Abdominal pain: Code(s): R10.9 - Unspecified abdominal pain (2) Nausea and vomiting: Code(s): R11.2 - Nausea with vomiting, unspecified (3) Weight loss, abnormal: Code(s): R63.4 - Abnormal weight loss Orders: Orders Comprehensive Met. Panel Today R10.9 - Unspecifie d abdominal pain, R63.4 - Abnormal w eight loss US abdomen complet e Today R10.9 - Unspecifie d abdominal pain, R11.2 - Nausea wit h vomiting, unspec ified Complete Blood Cou nt Auto Diff Today R63.4 - Abnormal w eight loss TSH reflex Free T4 Today R63.4 - Abnormal w eight loss UA CC w/rflx Micro + Cult Today R63.4 - Abnormal w eight loss Ferritin Today R63.4 - Abnormal w eight loss Medications: Changed From metoclopramide HCl (Reglan) 5 mg PO QIDACHS 1 20 tabs 3RF K58.0 - Irritable bowel syndrome wit h diarrhea, R11.2 - Nausea with vomi ting, unspecified To metoclopramide HCl (Reglan) Provi juan is aware of po ssible interaction s with prozac and seroquel and is mo nitoring 5 mg PO QIDACHS 1 20 tabs 3RF K58.0 - Irritable bowel syndrome wit h diarrhea, R11.2 - Nausea with vomi ting, unspecified Refilled sennosides (senna) 17.2 mg (2 x 8.6 m g) PO BEDTIME 30 d ays 60 caps 3RF co nstipation pantoprazole 40 mg PO BID 60 t abs 6RF K21.9 - Gastro-eso phageal reflux dis ease without esoph agitis ? Laboratory Tests 12/23/22 13:01 WBC 7.1 Hgb 13.7 Hct 41.0 Estimated GFR > 60 Ferritin 94 Total Bilirubin 0.7 AST 16 ALT 17 Alkaline Phosphata se 54 TSH 1.07 12/23/22-[address]: Jessi Dale ORDERED: [facility] w Micros QUERIES: Colle ction Date: Col lection Time: 1255 S ource: Urine, Loan n Catch Test Result Flag Refere nce Si te Ur Color Yellow Ur Appear C lear P H 7. 0 5.0-9.0 Ur Glu Negati ve Negative mg/d L Urine Blood Trace H Negative Spec Gr [place] Ur 1.010 1.005-1.025 Urine Pro tein Negative N eg-Trace mg/dL Urine [place] es Negative Neg ative mg/dL Ur Nitrite Negative Negat nolan Ur Celeste Esterase S mall (1+) H Negativ e Ur RBC 6-10 H 0-2 /HPF U r WBC 21- 50 H 0-5 /HPF Ur Squam Epi 3-5 0-2 /HPF Ur Ba ct Trace None Seen Ur Hyal ine Electrical Contacts Adjuster 0-2 0-2 /LPF CORRESPONDENCE On 01/11/23 @ 08:45 DanielleJuly Wrote To Danielle (2) She should stop the senna. She can take it only as needed if she feels constipated. Let us see how this works before we do anything else. On 01/11/23 @ 08:33 Holly Parker Wrote To Danielle patient thinks its the senna. patient states during last appt w/ you some medications were changed and she is inquiring if she should continue taking the medications as prescribed/directed on 12/23/22 given that she is experiencing frequent diarrhea. patient states greater than five episodes daily and denies any other s/s at this time. patient reports that she hasn't lost her appetite but everything that she does eat makes her go to the bathroom. On 01/10/23 @ 17:18 Yanira Santos Wrote To DanielleJuly (2) IT IS LIKELY EITHER THE REGLAN OF THE SENNA. Roby can you see if it get a hold of her? On 01/10/23 @ 14:53 ZacAnita Wrote To Danielle Patient lvm complaining about a medication is giving her diarrhea but she did not said the med name and also is not answering her phone. I see she is hving a follow up with you next week on 01/17 On 07/11/22 @ 09:48 Dorothy Navarrete Wrote To Danielle Pt scheduled for tomorrow no showed twice for US. On 06/14/22 @ 11:31 Yanira Santos Wrote To Dorothy Navarrete Well, despite the last stool being negative, I am going to try re treating her for c diff in case the lab result is a mistake. If she does not get the abx, it may be an insurance problem so please call her pharmacy and make sure she will be able to get it. Medication Orders fidaxomicin 200 mg PO Q12H 20 tabs 0RF 10 days A New On 06/14/22 @ 11:22 Dorothy Navarrete Wrote To Danielle Pt called w/ c/o diarrhea. She states is watery and mustard color. Pt had US appt yesterday but she states she was not able to go d/t incontinence she is afraid to get out of her house. She states she is not taking any medication for constipation because she has diarrhea and imodium and dicyclomine not helping. Please advise US OF ABDOMEN TODAY'S VISIT [place] #[facility] Live Again, this is a very long interview as she seems to really perseverate on her weight loss and the stress this is putting on her from her family. Her post prandial stool urgency has stopped but she is having borborymus and a feeling of stretching and pulling that starts at the umbilicus around to her back. She had called here about having more diarrhea, and I asked her to stop the senna. She is now having soft stools, this is still not her normal. From past note: (She missed the US and has been trying to call to reschedule this.? We review all of the other labs and the x-ray and I really believe since her CRP is not elevated in her stool studies are normal that this is not sequela of her C diff infection; except in the sense that is exacerbated her underlying irritable bowel problems.) She saw her PCP, Dr. Dueñas at [facility], and she was given vit D and a vitamin (not r/t ). It seems uncertain if she has the reglan, she says the script does not say qid and I ran out, I think she is taking zofran not the Reglan. I explain to be sure she takes the correct one as this will address the ongoing early satiety not just the nausea. Will write this out in [place]. We review her labs. All normal incl TSH, glucose etc. She had some very slight hematuria, so will get US of renals. She has upcoming appt for US of abd (again has had multiple, multiple CT scans). She has not yet heard re: US of abd date. She continues to be stressed about he sx, gian that she has to wear a diaper. She is on topamax, and this is for migraines - this is a possible cause as some people can not metabolize this drug well had have these sx. We may be able to consider a trial off of it because the imipramine is also a migraine preventative. Will order US of renals, GES, and HIDA scan to be thorough. [facility] Medical History Constipation Diarrhea Surgical History H/O colonoscopy History of tubal ligation History of section Social History Alcohol intake: never Patient Tobacco Use Status: Never used Tobacco Substance Use Type: Marijuana Review of Systems Const Denies fatigue, Denies fever(s), Denies night sweats, Denies poor appetite and Reports weight loss ENT Reports Normal hearing present, Denies dental pain, Denies dysphagia, Denies hearing loss, Denies mouth pain, Denies odynophagia, Denies throat swelling, Denies tongue swelling and Reports other (Dentition adequate) Card Reports no additional complaints Resp Reports no additional complaints GI Reports abdominal pain, Denies melena, Denies bloating, Denies hematochezia, Denies constipation, Denies GI cramping, Denies dysphagia, Denies excessive flatus, Reports early satiety, Reports heartburn, Reports diarrhea, Denies nausea, Denies odynophagia, Denies vomiting and Denies hematemesis Skin/Breast Denies pruritus, Denies lesions, Denies rash and Denies jaundice Neuro Reports Normal hearing present and Denies Abnormal speech present Psych Reports anxiety and Reports irritability Endo Denies fatigue Aller/Immun Denies throat swelling and Denies tongue swelling Physical Exam Vital Signs: Last Vital Signs Pulse 72 01/17/23 11:11 BP 108/59 L 01/17/23 11:11 BMI result Body Mass Index 21.1 Const General: cooperative, no acute distress, well developed and well groomed Nutritional Appearance: average body habitus and well nourished Orientation/consciousness: oriented to person, oriented to place and oriented to time Limitations: language barrier and other limitations (Educational levels and anxiety levels) HEENT Head: Yes normocephalic and Yes atraumatic Eyes General: appearance normal, both eyes and all related structures Pupils: Equal, round and reactive pupils present Neck Neck: Yes normal visual inspection and Yes no lymphadenopathy Thyroid: Thyroid normal Resp Effort & Inspection: normal respiratory effort and able to speak in complete sentences Auscultation: clear to auscultation bilaterally Cardio Rate: regular rate Rhythm: regular rhythm Heart sounds: Normal, physiologic split S2 sound present Peripheral pulses: radial pulses present and posterior tibial pulses present GI Inspection: No distended and No Abdominal panniculus present Palpation (GI): Soft to palpation, nontender, no guarding, not rigid and No hepatosplenomegaly present Percussion: Yes normal to percussion Auscultation: normal bowel sounds Rectal Exam - Female: deferred Skin General skin exam: no rashes or lesions noted, turgor normal, skin not dry, no jaundice, No spider nevi and no striae Rashes: no rashes Nails: normal Neuro General: oriented to person, oriented to place and oriented to time Cranial nerves: Yes Equal, round and reactive pupils present and Yes Normal hearing present Speech: No Abnormal speech present Extrem General: Yes normal to inspection, No clubbing, No cyanosis and No edema Psych Appearance: grossly normal and well kempt Mental Status: mental status grossly normal Speech and movement: Pressured speech present Affect: Labile affect present and Anxious affect present Attitude: cooperative Thought process: Circumstantial thought process present, not confabulating and Perseverating thought process present Thought content: Normal thought content present Insight: Poor insight present (Psych) Judgement: Poor judgement present (Psych) Results Reviewed Results Reviewed: Laboratory Tests 12/23/22 13:01 WBC 7.1 Hgb 13.7 Hct 41.0 Estimated GFR > 60 Ferritin 94 Total Bilirubin 0.7 AST 16 ALT 17 Alkaline Phosphatase 54 TSH 1.07 12/23/22-[address]: Jessi Dueñas ORDERED: [facility] w Micros QUERIES: Collection Date: 12/23/22 Collection Time: 1255 Source: Urine, Clean Catch Test Result Flag Reference Site Ur Color Yellow Ur Appear Clear PH 7.0 5.0-9.0 Ur Glu Negative Negative mg/dL Urine Blood Trace H Negative Spec [place] Ur 1.010 1.005-1.025 Urine Protein Negative Neg-Trace mg/dL Urine Ketones Negative Negative mg/dL Ur Nitrite Negative Negative Ur Celeste Esterase Small (1+) H Negative Ur RBC 6-10 H 0-2 /HPF Ur WBC 21-50 H 0-5 /HPF Ur Squam Epi 3-5 0-2 /HPF Ur Bact Trace None Seen Ur Hyaline Electrical Contacts Adjuster 0-2 0-2 /LPF Assessment & Plan Assessment & Plan (1) Weight loss, abnormal: Code(s): R63.4 - Abnormal weight loss Plan: [place] #[facility]amara Live Again, this is a very long interview as she seems to really perseverate on her weight loss and the stress this is putting on her from her family. Her post prandial stool urgency has stopped but she is having borborymus and a feeling of stretching and pulling that starts at the umbilicus around to her back. She had called here about having more diarrhea, and I asked her to stop the senna. She is now having soft stools, this is still not her normal. From past note: (She missed the US and has been trying to call to reschedule this.? We review all of the other labs and the x-ray and I really believe since her CRP is not elevated in her stool studies are normal that this is not sequela of her C diff infection; except in the sense that is exacerbated her underlying irritable bowel problems.) She saw her PCP, Dr. Dueñas at [facility], and she was given vit D and a vitamin (not r/t ). It seems uncertain if she has the reglan, she says the script does not say qid and I ran out, I think she is taking zofran not the Reglan. I explain to be sure she takes the correct one as this will address the ongoing early satiety not just the nausea. Will write this out in [place]. We review her labs. All normal incl TSH, glucose etc. She had some very slight hematuria, so will get US of renals. She has upcoming appt for US of abd (again has had multiple, multiple CT scans). She has not yet heard re: US of abd date. She continues to be stressed about he sx, gian that she has to wear a diaper. She is on topamax, and this is for migraines - this is a possible cause as some people can not metabolize this drug well had have these sx. We may be able to consider a trial off of it because the imipramine is also a migraine preventative. Will order US of renals, GES, and HIDA scan to be thorough. (2) Right sided abdominal pain: Code(s): R10.9 - Unspecified abdominal pain (3) Hematuria: Code(s): R31.9 - Hematuria, unspecified (4) Peptic ulcer disease: Code(s): K27.9 - Peptic ulcer, site unspecified, unspecified as acute or chronic, without hemorrhage or perforation (5) Family history of colon cancer: Comment: maternal aunt and mother polyps Code(s): Z80.0 - Family history of malignant neoplasm of digestive organs Orders: Orders NM hepatobiliary w pharm Today R10.9 - Unspecified abdominal pain, R31.9 - Hematuria, unspecified, R63.4 - Abnormal weight loss OR gastric emptying study Today R10.9 - Unspecified abdominal pain, R31.9 - Hematuria, unspecified, R63.4 - Abnormal weight loss US renal BI Today R10.9 - Unspecified abdominal pain, R31.9 - Hematuria, unspecified, R63.4 - Abnormal weight loss EGD/[place] Combo - GI Use Only Today K27.9 - Peptic ulcer, site unspecified, unspecified as acute or chronic, without hemorrhage or perforation, Z80.0 - Family history of malignant neoplasm of digestive organs Medications: New peg 3350-electrolytes 236-22.74-6.74 -5.86 gram (Golytely) until fecal effluent is clear; do not exceed a total volume of 2,000 mL 240 mL PO Q10M 1 day 4,000 mL 0RF Z12.11 - Encounter for screening for malignant neoplasm of colon Changed From imipramine HCl 10 mg PO BEDTIME 30 tabs 1RF To imipramine HCl 20 mg (2 x 10 mg) PO BEDTIME 30 tabs 6RF Refilled metoclopramide HCl (Reglan) Provider is aware of possible interactions with prozac and seroquel and is monitoring 5 mg PO QIDACHS 120 tabs 3RF K58.0 - Irritable bowel syndrome with diarrhea, R11.2 - Nausea with vomiting, unspecified On Hold ondansetron HCl Hold Comment: Doctor's Order 8 mg PO TID 90 tabs 3RF A04.72 - Enterocolitis due to Clostridium difficile, not specified as recurrent, R11.2 - Nausea with vomiting, unspecified Patient Instructions: Kera Platt Estoy aumentando la imipramina a 2 tabletas antes de acostarme. Aseg?rese de donaldo el medicamento llamado metoclopramida 4 veces al d?a (TOME MARTIN EN LUGAR DE ONDANSETRON) porque esto ayuda a solucionar el problema de saciedad demasiado r?pido. Estoy ordenando los siguientes estudios: ecograf?a del abdomen, ecograf?a de los ri?ones, exploraci?n HIDA de la ves?cula biliar y estudio de vaciamiento g?strico. Coloque TODOS tres medicamentos en [place] y tr?igalos a lema pr?xima visita. Quiero verte en 2 semanas. Coding Level of Care Code Est Pt Level 4 (94123) Diagnoses Weight loss, abnormal R63.4 Right sided abdominal pain R10.9 Hematuria R31.9 Peptic ulcer disease K27.9 Family history of colon cancer Z80.0
[2023-01-17 11:11] VITALS: BP 108/59; PULSE 72; BMI 21.1
== END 2023-01-17 12:29 | disposition home or self-care (01) ==
PROVIDERS: PCP General Practice; Visit Provider Nurse Practitioner
DX: R63.4 Abnormal weight loss (principal); R10.9 Unspecified abdominal pain; R31.9 Hematuria, unspecified; K27.9 Peptic ulcer, site unspecified, unspecified as acute or chronic, without hemorrhage or perforation; Z80.0 Family history of malignant neoplasm of digestive organs
CPT/HCPCS: 99214

== ENCOUNTER → 2023-01-17 11:05 | Outpatient (BNVA) | payer MEDICAID, SELFPAY | PROVIDERS: PCP General Practice; Visit Provider Nurse Practitioner | DX: K27.9 Peptic ulcer, site unspecified, unspecified as acute or chronic, without hemorrhage or perforation (principal); R63.4 Abnormal weight loss; R10.9 Unspecified abdominal pain; R31.9 Hematuria, unspecified; Z80.0 Family history of malignant neoplasm of digestive organs | CPT/HCPCS: 99212 ==

== ENCOUNTER → 2023-02-06 07:34 | Outpatient (REF) | payer MEDICAID, SELFPAY ==
--- NOTE | ~2023-02-06 | NM_ITS ---
EXAMINATION: BILIARY TRACT IMAGING STUDY CLINICAL INFORMATION: Abnormal weight loss.. COMPARISON: No previous biliary scan is available for comparison. CT of the abdomen and pelvis dated 03/15/2022 is available for comparison.. TECHNIQUE: Serial gamma scintillation camera images were obtained over the abdomen for a total observation period of 90 minutes following the intravenous administration of 5 mCi Tc-99m Mebrofenin. FINDINGS: There is good concentration of activity in the liver by 5 minutes post injection. Biliary activity is visualized by 10 minutes. Small bowel is well visualized by 15 minutes. The gallbladder is well visualized by 55 minutes. Following its initial visualization, the gallbladder rapidly emptied and by 65 minutes was almost completely empty. Because of this, CCK stimulation was not administered. The small bowel continue to become diffusely visualized and there is good clearance of activity from the liver. The gallbladder ejection fraction was calculated to be 71%. NM/NM hepatobiliary wo pharm IMPRESSION: Visualization the gallbladder is evidence of a patent cystic duct and strong evidence against the diagnosis of acute cholecystitis. The common bile duct is patent. Liver function appears normal. Gallbladder contractility and ejection fraction are also normal, and these were demonstrated without the administration of CCK, as there was spontaneous normal gallbladder emptying visualized.
== END ==
LOC: HO.NUCMED 07:34
PROVIDERS: PCP General Practice; Visit Provider Nurse Practitioner
DX: R10.9 Unspecified abdominal pain (principal); R31.9 Hematuria, unspecified; R63.4 Abnormal weight loss
CPT/HCPCS: 78226; A9537

== ENCOUNTER 2023-02-06 10:17 | Emergency (ER) | payer MEDICAID, SELFPAY ==
[2023-02-06] VITALS (8 sets, daily range): BP systolic 106–124; BP diastolic 38–90; PULSE 57–74; RESP 14–20; TEMP 36.7–36.8; O2SAT 96–100; BMI 21.1
[2023-02-06 10:51] LABS: MANUAL DIFF FLAG NO
[2023-02-06 10:53] LABS: Basophils Percent Auto 0.4 % (0-2); Eosinophils Percent Auto 0.1 % (0-4); Hematocrit 34.5 % (37.0-47.0); Hemoglobin 11.9 g/dl (12.0-16.0); Imm Gran Abs Auto 0.03 X10*3/uL (0.00-0.03); Imm Gran Pct Auto 0.4 % (0.0-0.4); Lymphocytes Absolute Auto 1.8 X10*3/uL (1.2-4.9); Lymphocytes Percent Auto 24.2 % (20-40); Mean Corpuscular HGB Conc 34.5 g/dl (31.0-35.0); Mean Corpuscular Hemoglobin 30.9 pg (27.0-33.0); Mean Corpuscular Volume 89.6 fL (80.0-98.0); Mean Platelet Volume 9.6 fL (9.4-12.3); Monocytes Absolute Auto 0.7 X10*3/uL (0.1-1.2); Monocytes Percent Auto 9.8 % (2-11); Neutrophils Absolute Auto 4.9 x10*3/uL (2.0-8.3); Neutrophils Percent Auto 65.1 % (45-73); Platelet Count 263 X10*3/uL (160-400); Red Blood Count 3.85 X10*6/uL (4.20-5.50); Red Cell Distribution Width 12.5 % (11.0-16.0); White Blood Count 7.6 X10*3/uL (4.8-10.8)
[2023-02-06 11:05] LABS: Anion Gap 12 (12-20); Blood Urea Nitrogen 15 mg/dL (9-16); Calcium 9.5 mg/dL (8.4-10.2); Carbon Dioxide 24 mmol/L (22-29); Chloride 105 mmol/L (96-108); Creatinine Clr Calc Pharmacy 69.4; Estimated Glomerular Filt Rate 59; Glucose Random 103 mg/dL (60-115); Potassium 3.2 mmol/L (3.3-5.1); Sodium 138 mmol/L (135-145)
--- NOTE | 2023-02-06 11:37 | PC.NURSE ---
pt a&o x4, pleasant, calm, and cooperative. pt reporting belly, head, and lower back pain x4 days. pt changed over to hospital attire and given warm blankets. rr even/unlabored. call roland within pt reach.
--- NOTE | 2023-02-06 11:44 | ED.GENADULT ---
HPI - General Adult General Chief complaint: Abdominal Pain Stated complaint: abd pain, back pain, LBP Time Seen by Provider: 02/06/23 11:34 Source: patient Mode of arrival: ambulatory Limitations: no limitations History of Present Illness HPI narrative: This is 42 years old female presented to the emergency department sent by nuclear Medicine because the blood pressure was low. Patient has history of chronic abdominal pain chronic lower back pain chronic fatigue. Denies any fever chills vomiting. Onset (ago): month(s) Radiation: non-radiation Severity: mild Related Data Home Medications Medication Instructions Recorded Confirmed cholecalciferol (vitamin D3) 50 50 mcg PO QAM 01/06/22 mcg (2,000 unit) tablet fluoxetine 20 mg capsule 40 mg PO QAM 01/06/22 fluticasone propionate 220 1 puff inhalation BID 01/06/22 mcg/actuation HFA aerosol inhaler (Flovent HFA) fluticasone propionate 50 2 spray intranasal DAILY 01/06/22 mcg/actuation nasal spray,suspension loratadine 10 mg tablet (Allergy 10 mg PO DAILY 01/06/22 Relief (loratadine)) montelukast 10 mg tablet 10 mg PO QPM asthma 01/06/22 multivitamin-iron sulfate 15 1 tab PO QAM 01/06/22 mg-folic acid 400 mcg tablet (Tab-A-Kisha Multivitamin w-iron) riboflavin (vitamin B2) 100 mg 400 mg PO DAILY 01/06/22 tablet (Vitamin B-2) ropinirole 4 mg tablet 4 mg PO BEDTIME 01/06/22 topiramate 25 mg tablet 25 mg PO BEDTIME 01/06/22 albuterol sulfate 2.5 mg/3 mL mg inhalation Q4-6H 04/01/22 (0.083 %) solution for nebulization calcium carbonate 300 mg (750 mg) 1 - 2 tab PO DIRECTED 04/01/22 chewable tablet (Antacid Extra Strength (calcium carb)) clonazepam 1 mg tablet 1 mg PO 04/01/22 diphenhydramine HCl 25 mg capsule 25 - 50 mg PO BEDTIME PRN insomnia 04/01/22 (Banophen) ketotifen fumarate 0.025 % (0.035 1 drp ophthalmic (eye) BID 04/01/22 %) eye drops quetiapine 100 mg tablet 100 mg PO BID PRN 07/21/22 quetiapine 300 mg tablet 300 mg PO BEDTIME 07/21/22 duloxetine 20 mg capsule,delayed 20 mg PO QAM 01/17/23 release famotidine 20 mg tablet 20 mg PO QPM 01/17/23 vitamin with calcium 1 tab PO QAM 01/17/23 no.72-iron 27 mg-folic acid 1 mg tablet ( Vitamins Plus Low Iron) Previous Rx's Medication Instructions Recorded ibuprofen 800 mg tablet 800 mg PO Q8H PRN pain #20 tabs 03/02/21 loperamide 2 mg capsule (Imodium 2 mg PO Q6H PRN loose stool #14 06/29/21 A-D) caps hydrocortisone 2.5 % topical cream 1 appl PA BID PRN hemorrhoids #30 02/02/22 with perineal applicator grams (Proctosol HC) ondansetron 4 mg disintegrating 4 mg PO BID-TID nausea and 03/16/22 tablet vomiting #90 tabs magnesium hydroxide 400 mg/5 mL 5 ml PO BEDTIME #355 mL 04/01/22 oral suspension (Milk of Magnesia) dicyclomine 20 mg tablet 40 mg (2 x 20 mg) PO QID 30 days 07/01/22 #240 tabs prednisone 20 mg tablet 40 mg (2 x 20 mg) PO DAILY #10 tabs 11/23/22 ondansetron HCl 8 mg tablet 8 mg PO TID #90 tabs 12/12/22 pantoprazole 40 mg tablet,delayed 40 mg PO BID #60 tabs 12/23/22 release sennosides 8.6 mg capsule (senna) 17.2 mg (2 x 8.6 mg) PO BEDTIME 12/23/22 constipation 30 days #60 caps imipramine HCl 10 mg tablet 20 mg (2 x 10 mg) PO BEDTIME #30 01/17/23 tabs metoclopramide HCl 5 mg tablet 5 mg PO QIDACHS #120 tabs 01/17/23 (Reglan) peg 3350-electrolytes 236 240 ml PO Q10M 1 day #4,000 mL 01/17/23 gram-22.74 gram-6.74 gram-5.86 gram solution (Golytely) cephalexin 500 mg capsule 500 mg PO Q8H #21 caps 02/06/23 Allergies Allergy/AdvReac Type Severity Reaction Status Date / Time shellfish derived Allergy Unknown swelling Verified 01/17/23 11:16 [SHELLFISH DERIVED] morphine Allergy Itching Verified 01/17/23 11:16 Review of Systems Constitutional: Constitutional: Reports fatigue, Reports lethargy, Reports malaise, Reports poor appetite, Reports weakness and Reports weight loss Neurologic: Reports weakness Endocrine: Endocrine: Reports fatigue PMFSH Past Medical History Medical History Constipation Diarrhea Surgical History H/O colonoscopy History of tubal ligation History of section Social History Social History Alcohol intake: never Patient Tobacco Use Status: Never used Tobacco Smoked in Last 30 Days: No Use of substances other than those prescribed or required for medical reasons: No Substance Use Type: Marijuana Advance Directives: No Advance Directives Information Provided: No Physical Exam ED Vital Signs: Vital Signs - 24 hr 02/06/23 10:23 02/06/23 11:43 02/06/23 13:58 Temperature 98.3 F 98.1 F 98.2 F Pulse Rate 74 58 69 Respiratory Rate 18 14 16 Blood Pressure 124/53 L 110/52 L 106/38 L Pulse Oximetry 98 97 99 Oxygen Delivery Method Room Air Room Air Room Air 02/06/23 14:25 02/06/23 14:36 02/06/23 14:55 Temperature Pulse Rate 59 59 66 Respiratory Rate 16 16 16 Blood Pressure 112/90 H 107/68 122/66 Pulse Oximetry 99 Oxygen Delivery Method Room Air 02/06/23 14:55 02/06/23 16:02 Temperature Pulse Rate 64 63 Respiratory Rate 16 16 Blood Pressure 122/66 116/64 Pulse Oximetry 99 100 Oxygen Delivery Method Room Air Room Air BMI result Body Mass Index 21.1 Const General: cooperative Nutritional Appearance: average body habitus Orientation/consciousness: patient oriented x3 Limitations: no limitations HENMT Head: Yes normal to inspection Mouth: Normal oral and palatal mucosa present Neck Neck: Yes normal visual inspection and Yes full ROM Resp Effort & Inspection: normal respiratory effort and able to speak in complete sentences Auscultation: clear to auscultation bilaterally Cardio Palpation: normal PMI Rate: regular rate Rhythm: regular rhythm GI Inspection: Yes normal to inspection Palpation (GI): Soft to palpation Neuro General: patient oriented x3 and gait normal Cognition (Neuro): normal cognition Medications Administered Discontinued Medications Generic Name Dose Route Start Last Admin Trade Name Evelina PRN Reason Stop Dose Admin Sodium Chloride 1,000 mls @ 999 mls/hr 02/06/23 14:15 02/06/23 15:25 Ns IVCONT 02/06/23 15:15 Infused .Q1H1M BLANCA Infusion Ketorolac Tromethamine 15 mg 02/06/23 14:06 02/06/23 14:38 Ketorolac Tromethamine 15 Mg/Ml Vial IVPUSH 02/06/23 14:07 15 mg ONCE ONE Administration Potassium Chloride 20 meq 02/06/23 11:41 02/06/23 11:46 Potassium Chloride Er 20 Meq Tab.Er.Prt PO 02/06/23 11:42 20 meq ONCE ONE Administration Medical Decision Making Medical Decision Making [facility] Narrative: Patient was sent by nuclear medicine , currently she is normotensive, vital signs stable labs are normal except low K which we will replace. Anticipate discharge 4:20 PM she is doing better she is normotensive she received IV fluids again CBC chemistry normal she has cocaine in the urine. I think at this point we could discharge UA shows evidence of UTI urine cloudy with the several WBC will discharge on p.o. antibiotic Differential Diagnosis Differential Diagnoses: The differential diagnosis associated with the presentation includes Chronic abdominal pain/anemia/anxiety Admission/Observation Consideration of admission/observation: Escalation of care including admission/observation considered Lab Data [facility] Lab Attestation statement: I reviewed the patient's lab results. 02/06/23 10:46 02/06/23 10:46 Labs: Lab Results 02/06/23 02/06/23 Range/Units 10:46 11:58 WBC 7.6 (4.8-10.8) X10*3/uL RBC 3.85 L (4.20-5.50) X10*6/uL Hgb 11.9 L (12.0-16.0) g/dl Hct 34.5 L (37.0-47.0) % MCV 89.6 (80.0-98.0) fL MCH 30.9 (27.0-33.0) pg MCHC 34.5 (31.0-35.0) g/dl RDW 12.5 (11.0-16.0) % Plt Count 263 (160-400) X10*3/uL MPV 9.6 (9.4-12.3) fL Immature Gran % (Auto) 0.4 (0.0-0.4) % Neut % (Auto) 65.1 (45-73) % Lymph % (Auto) 24.2 (20-40) % Bonner % (Auto) 9.8 (2-11) % Eos % (Auto) 0.1 (0-4) % Baso % (Auto) 0.4 (0-2) % Lymph # (Auto) 1.8 (1.2-4.9) X10*3/uL Bonner # (Auto) 0.7 (0.1-1.2) X10*3/uL Eos # (Auto) 0.0 (0.0-0.4) X10*3/uL Baso # (Auto) 0.0 (0.0-0.2) X10*3/uL Abs Immat Gran (auto) 0.03 (0.00-0.03) X10*3/uL Absolute Neuts (auto) 4.9 (2.0-8.3) x10*3/uL Absolute Nucleated RBC 0.000 (0.0-0.012) X10*3/uL Nucleated RBC % (auto) 0.0 (0.0-0.2) /100WBC Sodium 138 (135-145) mmol/L Potassium 3.2 L (3.3-5.1) mmol/L Chloride 105 (96-108) mmol/L Carbon Dioxide 24 (22-29) mmol/L Anion Gap 12 (12-20) BUN 15 (9-16) mg/dL Creatinine 1.04 (0.5-1.4) mg/dL Estim Creat Clear Calc 69.4 Estimated GFR 59 Random Glucose 103 (60-115) mg/dL Calcium 9.5 (8.4-10.2) mg/dL Urine Color Dark Yellow Urine Appearance Cloudy Urine pH 6.0 (5.0-9.0) Ur Specific [place] 1.015 (1.005-1.025) Urine Protein 30 (1+) H (Neg-Trace) mg/dL Urine Glucose (UA) Negative (Negative) mg/dL Urine Ketones Negative (Negative) mg/dL Urine Blood Small (1+) H (Negative) Urine Nitrite Negative (Negative) Ur Leukocyte Esterase Large (3+) H (Negative) Urine RBC 6-10 H (0-2) /HPF Urine WBC >50 H (0-5) /HPF Ur Squamous Epith Cells 0-2 (0-2) /HPF Urine Bacteria Trace (None Seen) Hyaline Casts 0-2 (0-2) /LPF Urine Test NEGATIVE (NEGATIVE) Urine Opiates Screen Not Detected (Not Detect) Urine Fentanyl Screen Not Detected (Not Detect) Ur Barbiturates Screen Not Detected (Not Detect) Ur Phencyclidine Scrn Not Detected (Not Detect) Ur Amphetamines Screen Not Detected (Not Detect) U Benzodiazepines Scrn Not Detected (Not Detect) Urine Cocaine Screen POSITIVE H (Not Detect) U Marijuana (THC) Screen POSITIVE H (Not Detect) External Record Review External record reviewed: Inpatient record Discharge Plan Discharge Clinical Impression: Hypokalemia, Weakness, UTI (urinary tract infection) Patient Disposition: Home, Self-Care Instructions: Urinary Tract Infection in Women (DC) Prescriptions: New cephalexin 500 mg capsule 500 mg PO Q8H Qty: 21 0RF No Action dicyclomine 20 mg tablet 40 mg PO QID 30 Days Qty: 240 3RF Hold Instructions: Doctor's Order ondansetron HCl 8 mg tablet 8 mg PO TID Qty: 90 3RF Hold Instructions: Doctor's Order ibuprofen 800 mg tablet 800 mg PO Q8H PRN (Reason: pain) Qty: 20 0RF loperamide [Imodium A-D] 2 mg capsule 2 mg PO Q6H PRN (Reason: loose stool) Qty: 14 0RF prednisone 20 mg tablet 40 mg PO DAILY Qty: 10 0RF hydrocortisone [Proctosol HC] 2.5 % cream with perineal applicator 1 appl PA BID PRN (Reason: hemorrhoids) Qty: 30 0RF ondansetron 4 mg tablet,disintegrating 4 mg PO BID-TID Qty: 90 3RF Hold Instructions: Doctor's Order diphenhydramine HCl [Banophen] 25 mg capsule 25 - 50 mg PO BEDTIME PRN (Reason: insomnia) ketotifen fumarate 0.025 % (0.035 %) drops 1 drp ophthalmic (eye) BID albuterol sulfate 2.5 mg /3 mL (0.083 %) solution for nebulization inhalation Q4-6H calcium carbonate [Antacid Ext Str (calcium carb)] 300 mg (750 mg) tablet,chewable 1 - 2 tab PO DIRECTED magnesium hydroxide [Milk of Magnesia] 400 mg/5 mL suspension 5 ml PO BEDTIME Qty: 355 3RF topiramate 25 mg tablet 25 mg PO BEDTIME cholecalciferol (vitamin D3) 50 mcg (2,000 unit) tablet 50 mcg PO QAM fluticasone propionate [Flovent HFA] 220 mcg/actuation HFA aerosol inhaler 1 puff inhalation BID montelukast 10 mg tablet 10 mg PO QPM Tab-A-Kisha Multivitamin w-iron 15 mg iron- 400 mcg tablet 1 tab PO QAM ropinirole 4 mg tablet 4 mg PO BEDTIME loratadine [Allergy Relief (loratadine)] 10 mg tablet 10 mg PO DAILY fluticasone propionate 50 mcg/actuation spray,suspension 2 spray intranasal DAILY fluoxetine 20 mg capsule 40 mg PO QAM riboflavin (vitamin B2) [Vitamin B-2] 100 mg tablet 400 mg PO DAILY clonazepam 1 mg tablet 1 mg PO quetiapine 300 mg tablet 300 mg PO BEDTIME quetiapine 100 mg tablet 100 mg PO BID PRN duloxetine 20 mg capsule,delayed release(DR/EC) 20 mg PO QAM famotidine 20 mg tablet 20 mg PO QPM Vitamin Plus Low Iron 27 mg iron- 1 mg tablet 1 tab PO QAM metoclopramide HCl [Reglan] 5 mg tablet 5 mg PO QIDACHS Qty: 120 3RF Rx Instructions: Provider is aware of possible interactions with prozac and seroquel and is monitoring imipramine HCl 10 mg tablet 20 mg PO BEDTIME Qty: 30 6RF peg 3350-electrolytes [Golytely] 236-22.74-6.74 -5.86 gram recon soln 240 ml PO Q10M 1 Days Qty: 4000 0RF Rx Instructions: until fecal effluent is clear; do not exceed a total volume of 2,000 mL senna 8.6 mg capsule 17.2 mg PO BEDTIME 30 Days Qty: 60 3RF pantoprazole 40 mg tablet,delayed release (DR/EC) 40 mg PO BID Qty: 60 6RF
[2023-02-06] MEDS: Potassium Chloride ER 20 MEQ TAB.ER.PRT PO (11:46)
[2023-02-06 12:10] LABS: Appearance Urine Cloudy; Color Urine Dark Yellow; Glucose Urine UA Negative (Negative); Leukocyte Esterase Urine Large (3+) (Negative); Nitrite Urine Negative (Negative); Specific Gravity - Urine 1.015 (1.005-1.025); UMIC TRIGGER UACC YES; Urine Blood Small (1+) (Negative); Urine Ketones Negative (Negative); Urine Protein 30 (1+) mg/dL (Neg-Trace)
[2023-02-06 12:11] LABS: UPreg QC Valid YES; Urine Pregnancy NEGATIVE (NEGATIVE)
[2023-02-06 12:12] LABS: Bacteria Urine Trace (None Seen); Hyaline Casts Urine 0-2 /LPF (0-2); Squamous Epithelial Cell Urine 0-2 /HPF (0-2); UACC Culture Trigger YES; WBC Urine >50 /HPF (0-5)
[2023-02-06 12:17] LABS: Amphetamine Screen Urine Not Detected (Not Detect); Barbiturates, Urine Not Detected (Not Detect); Benzodiazepines Screen Urine Not Detected (Not Detect); Cannabinoid Screen Urine POSITIVE (Not Detect); Cocaine Screen Urine POSITIVE (Not Detect); Fentanyl, urine Not Detected (Not Detect); Opiate Screen Urine Not Detected (Not Detect); Phencyclidine Screen Urine Not Detected (Not Detect)
[2023-02-06] MEDS: 0.9 % Sodium Chloride 1,000 ML 999 ML IVCONT (14:18)
[2023-02-06] MEDS: Ketorolac Tromethamine 15 MG/ML VIAL IVPUSH (14:38)
--- NOTE | 2023-02-06 17:02 | PC.NURSE ---
pt asking to speak with provider, does not feel comfortable leaving as she wants to figure out why she has this chronic pain/diarrhea. pt sts if she leaves and something happens to her she will report this hospital . pt sts she needs to get better to take care of her disabled daughter. daughter at bedside with pt. rr even/unlabored. will ask provider to speak with pt.
--- NOTE | 2023-02-06 18:13 | PC.NURSE ---
Dr. Boo left for the day. YAMILETH George reviewed pt chart/care and discussed that the pt that her condition is chronic as it has been going on for 6 months pt educated that she needs to follow up with her PCP/specialists as she has been cleared for emergency care. pt compliant and understands.
== END 2023-02-06 18:17 | disposition home or self-care (01) ==
PROVIDERS: Emergency Provider Emergency Medicine; PCP General Practice
DX: N39.0 Urinary tract infection, site not specified (principal); E87.6 Hypokalemia; R53.1 Weakness; M54.50 Low back pain, unspecified; R10.9 Unspecified abdominal pain; Z79.899 Other long term (current) drug therapy
CPT/HCPCS: 36415; 80048; 80307; 81001; 81025; 85025; 87086; 87088; 87186; 96361; 96374; 99284; 99285; J1885

== ENCOUNTER 2023-02-09 10:53 | Outpatient (REF) | payer MEDICAID, SELFPAY | END 2023-02-09 10:54 | disposition home or self-care (01) | LOC: HO.LAB 10:53 | PROVIDERS: PCP General Practice; Visit Provider Nurse Practitioner | DX: K27.9 Peptic ulcer, site unspecified, unspecified as acute or chronic, without hemorrhage or perforation (principal); K21.9 Gastro-esophageal reflux disease without esophagitis; R63.4 Abnormal weight loss; R11.2 Nausea with vomiting, unspecified; R19.7 Diarrhea, unspecified; R10.9 Unspecified abdominal pain | CPT/HCPCS: 99212 ==

== ENCOUNTER 2023-02-09 10:53 | Outpatient (AMB) | payer MEDICAID, SELFPAY ==
--- NOTE | 2023-02-09 11:01 | A.OFFVIS_ITS ---
Intake Vital Signs 02/09/23 11:02 Height 5 ft 7 in Weight 132 lb 11.492 oz BMI 20.8 BP 119/61 Blood Pressure Location Rt brachial Position Sitting Pulse 86 Intake Visit Reasons: Follow up ER Intake Note: Patient follow up for diarrhea and weight loss. CC: Patient c/o abdominal pain and cramps, poor appetite, diarrhea, nausea, and vomiting. She also reports she was seen in the ER recently with diarrhea. She c/o weight loss, depression, pain in her throat with swallowing, chocking with food. She reports waking up with face swelled after taking cephalexin. Potassium levels were low in the hospital per PT. Supervisor Smoke Control Required: Yes Accompanied by: Self / Same As Patient Allergies cephalexin [From Keflex] Allergy (Intermediate, Verified 02/09/23 11:46) Eye Swelling shellfish derived [SHELLFISH DERIVED] Allergy (Unknown, Verified 02/09/23 11:08) swelling morphine Allergy (Verified 02/09/23 11:08) Itching HPI Follow up ER HPI Details Assessment & Plan (1) Weight loss, abnormal: Code(s): R63.4 - Abnormal weight loss Plan: MALAGASY #Tamara Live Again, this is a very long interview as she seems to really perseverate on her weight loss and the stress this is putting on her from her family. Her post prandial stool urgency has stopped but she is having borborymus and a feeling of stretching and pulling that starts at the umbilicus around to her back. She had called here about having more diarrhea, and I asked her to stop the senna. She is now having soft stools, this is still not her normal. From past note: (She missed the US and has been trying to call to reschedule this.? We review all of the other labs and the x-ray and I really believe since her CRP is not elevated in her stool studies are normal that this is not sequela of her C diff infection; except in the sense that is exacerbated her underlying irritable bowel problems.) She saw her PCP, Dr. Dueñas at [facility], and she was given vit D and a vitamin (not r/t ). It seems uncertain if she has the reglan, she says the script does not say qid and I ran out, I think she is taking zofran not the Reglan. I explain to be sure she takes the correct one as this will address the ongoing early satiety not just the nausea. Will write this out in Sudanese. We review her labs. All normal incl TSH, glucose etc. She had some very slight hematuria, so will get US of renals. She has upcoming appt for US of abd (again has had multiple, multiple CT scans). She has not yet heard re: US of abd date. She continues to be stressed about he sx, gian that she has to wear a diaper. She is on topamax, and this is for migraines - this is a possible cause as some people can not metabolize this drug well had have these sx. We may be able to consider a trial off of it because the imipramine is also a migraine preventative. Will order US of renals, GES, and HIDA scan to be thorough. (2) Right sided abdominal pain: Code(s): R10.9 - Unspecified abdominal pain (3) Hematuria: Code(s): R31.9 - Hematuria, unspecified (4) Peptic ulcer disease: Code(s): K27.9 - Peptic ulcer, site unspecified, unspecified as acute or chronic, without hemorrhage or perforation (5) Family history of colon cancer: Comment: maternal aunt and mother polyps Code(s): Z80.0 - Family history of malignant neoplasm of digestive organs Orders: Orders NM hepatobiliary w pharm Today R10.9 - Unspecifie d abdominal pain, R31.9 - Hematuria, unspecified, R63. 4 - Abnormal weigh t loss NM gastric emptyin g study Today R10.9 - Unspecifie d abdominal pain, R31.9 - Hematuria, unspecified, R63. 4 - Abnormal weigh t loss US renal BI Today R10.9 - Unspecifie d abdominal pain, R31.9 - Hematuria, unspecified, R63. 4 - Abnormal weigh t loss EGD/[place] Combo - G I Use Only Today K27.9 - Peptic ulc er, site unspecifi ed, unspecified as acute or chronic, without hemorrhag e or perforation, Z80.0 - Family his tory of malignant neoplasm of digest nolan organs Medications: New peg 3350-electroly nikolas [id number] -5.86 gram (Golyt alix) until feca l effluent is kaylie r; do not exceed a total volume of 2 ,000 mL 240 mL PO Q10M 1 day 4,000 mL 0RF Z12.11 - Encounter for screening for malignant neoplas m of colon Changed From imipramine HCl 10 mg PO BEDTIME 30 tabs 1RF To imipramine HCl 20 mg (2 x 10 mg) PO BEDTIME 30 tabs 6RF Refilled metoclopramide HCl (Reglan) Provi juan is aware of po ssible interaction s with prozac and seroquel and is mo nitoring 5 mg PO QIDACHS 1 20 tabs 3RF K58.0 - Irritable bowel syndrome wit h diarrhea, R11.2 - Nausea with vomi ting, unspecified On Hold ondansetron HCl Hold Comment: Do ctor's Order 8 mg PO TID 90 ta bs 3RF A04.72 - Enterocol itis due to Clostr idium difficile, n ot specified as re current, R11.2 - N ausea with vomitin g, unspecified Patient Instructions: Kera Platt Estoy aumentando la imipramina a 2 tabletas antes de acostarme. Aseg?rese de donaldo el medicamento llamado metoclopramida 4 veces al d?a (TOME MARTIN EN LUGAR DE ONDANSETRON) porque esto ayuda a solucionar el problema de saciedad demasiado r?pido. Estoy ordenando los siguientes estudios: ecograf?a del abdomen, ecograf?a de los ri?ones, exploraci?n HIDA de la ves?cula biliar y estudio de vaciamiento g?strico. Coloque TODOS tres medicamentos en stone bolsa y tr?igalos a lema pr?xima visita. Quiero verte en 2 semanas. HIDA SCAN 02/06/23 IMPRESSION: Visualization the gallbladder is evidence of a patent cystic duct and strong evidence against the diagnosis of acute cholecystitis. The common bile duct is patent. Liver function appears normal. Gallbladder contractility and ejection fraction are also normal, and these were demonstrated without the administration of CCK, as there was spontaneous normal gallbladder emptying visualized. GASTRIC EMPTYING STUDY EGD/COLONOSCOPY BIOPSY Review of ER notes 02/06/2023 Medical Decision Making MDM Narrative: Patient was sent by nuclear medicine , currently she is normotensive, vital signs stable labs are normal except low K which we will replace. Anticipate discharge 4:20 PM she is doing better she is normo tensive she received IV fluids again CBC chemistry normal she has cocaine in the urine. I think at this point we could discharge UA shows evidence of UTI urine cloudy with the several WBC will discharge on p.o. antibiotic ER labs Discharge Clinical Impression: Hypokalemia, Weakness, UTI (urinary tract infection) Patient Disposition: Home, Self-Care Instructions: Urinary Tract Infection in Women (DC) Prescriptions: New cephalexin 500 mg capsule 500 mg PO Q8H Qty: 21 0RF CORRESPONDENCE On 01/11/23 @ 08:45 Yanira Santos Wrote To Yanira Santos (2) She should stop the senna. She can take it only as needed if she feels constipated. Let us see how this works before we do anything else. On 01/11/23 @ 08:33 Holly Parker Wrote To DanielleJuly patient thinks its the senna. patient states during last appt w/ you some medications were changed and she is inquiring if she should continue taking the medications as prescribed/directed on 12/23/22 given that she is experiencing frequent diarrhea. patient states greater than five episodes daily and denies any other s/s at this time. patient reports that she hasn't lost her appetite but everything that she does eat makes her go to the bathroom. On 01/10/23 @ 17:18 Yanira Santos Wrote To Yanira Santos (2) IT IS LIKELY EITHER THE REGLAN OF THE SENNA. Roby can you see if it get a hold of her? On 01/10/23 @ 14:53 Anita Frank Wrote To DanielleYanira Patient lvm complaining about a medication is giving her diarrhea but she did not said the med name and also is not answering her phone. I see she is hving a follow up with you next week on 01/17 On 07/11/22 @ 09:48 Dorothy Navarrete Wrote To Danielle Pt scheduled for tomorrow no showed twice for US. On 06/14/22 @ 11:31 Yanira Santos Wrote To Dorothy Navarrete Well, despite the last stool being negative, I am going to try re treating her for c diff in case the lab result is a mistake. If she does not get the abx, it may be an insurance problem so please call her pharmacy and make sure she will be able to get it. Medication Orders fidaxomicin 200 mg PO Q12H 20 tabs 0RF 10 days A New On 06/14/22 @ 11:22 Dorothy Navarrete Wrote To Danielle Pt called w/ c/o diarrhea. She states is watery and mustard color. Pt had US appt yesterday but she states she was not able to go d/t incontinence she is afraid to get out of her house. She states she is not taking any medication for constipation because she has diarrhea and imodium and dicyclomine not helping. Please advise. TODAY'S VISIT MALAGASY #Tamara Live SHE HAD VERY MILDLY LOW low potassium at 3.1 she also had cocaine in her urine. I asked her to bring all of her medications with her to the next visit because she never seems to know what she is taking. Obviously, the cocaine is concerning considering she has been seeing me for weight loss and diarrhea which has not any underlying medical reason expose the so far. She did have positive genetic screen for possible IBD in 2016 but subsequent colonoscopy in 2018 did not seem to play out with this and she has never had an elevated CRP. Will try getting a fecal calprotectin going forward. Apparently, she waited for 2 hours for an electrical maintenance supervisor at the last ER visit and they did not listen to me. She says she had 9 episodes of diarrhea when she was in the ER. She was having AMAYA, and pain in the back, stomach, eyes and chest and felt dehydrated. She was given a low K+ pill and Keflex for presumed UTI. BUT the Keflex caused her eyes to swell. She stopped it. She is also c/o difficulty swallowing. She had a food bolus that got stuck above the sternal notch and she had to force it down with fluids. This happened after the ER. She also is under the impression that she was told by the ER that she needed vitamins and lytes via IV and so she does not understand why she was not admitted. She says she requested phone #'s for case mgmt and admin to complain. For now will increase imipramine to 50mg qhs and reglan for 10mg qid as she has tolerated both w/lo s/e. I will research if there are better IBS-D meds depending on results of fecal calprotectin. AVOID VIBERZI GIVEN + COCAINE IN URINE!! I will retest urine to check for UTI, encourage her NOT to take the Keflex. She has the EGD/colonoscopy coming up in May, and the GES later this month. We review that the HIDA scan was negative. . ROV 3 weeks. PFSH Medical History Constipation Diarrhea Surgical History H/O colonoscopy History of tubal ligation History of section Social History Alcohol intake: never Patient Tobacco Use Status: Never used Tobacco Substance Use Type: Marijuana Review of Systems Const Denies fatigue, Denies fever(s), Denies night sweats, Reports poor appetite and Denies weight loss ENT Reports Normal hearing present, Denies dental pain, Reports dysphagia, Denies hearing loss, Denies mouth pain, Denies odynophagia, Denies throat swelling, Denies tongue swelling and Reports other (Dentition adequate) Card Reports no additional complaints Resp Reports no additional complaints GI Reports abdominal pain, Denies melena, Denies bloating, Denies hematochezia, Denies constipation, Denies GI cramping, Reports dysphagia, Denies excessive flatus, Denies early satiety, Denies heartburn, Reports diarrhea, Reports nausea, Denies odynophagia, Reports vomiting and Denies hematemesis Skin/Breast Denies pruritus, Denies lesions, Denies rash and Denies jaundice Neuro Reports Normal hearing present and Denies Abnormal speech present Endo Denies fatigue Aller/Immun Denies throat swelling and Denies tongue swelling Physical Exam Vital Signs: Last Vital Signs Pulse 86 02/09/23 11:02 BP 119/61 02/09/23 11:02 BMI result Body Mass Index 20.8 Const General: cooperative, no acute distress, well developed and well groomed Nutritional Appearance: average body habitus and well nourished Orientation/consciousness: oriented to person, oriented to place and oriented to time Limitations: language barrier HEENT Head: Yes normocephalic and Yes atraumatic Eyes General: appearance normal, both eyes and all related structures Pupils: Equal, round and reactive pupils present Neck Neck: Yes normal visual inspection and Yes no lymphadenopathy Thyroid: Thyroid normal Resp Effort & Inspection: normal respiratory effort and able to speak in complete sentences Auscultation: clear to auscultation bilaterally Cardio Rate: regular rate Rhythm: regular rhythm Heart sounds: Normal, physiologic split S2 sound present Peripheral pulses: radial pulses present and posterior tibial pulses present GI Inspection: No distended and No Abdominal panniculus present Palpation (GI): Soft to palpation, nontender, no guarding, not rigid and No hepatosplenomegaly present Percussion: Yes normal to percussion Auscultation: normal bowel sounds Rectal Exam - Female: deferred Skin General skin exam: no rashes or lesions noted, turgor normal, skin not dry, no jaundice, No spider nevi and no striae Rashes: no rashes Nails: normal Neuro General: oriented to person, oriented to place and oriented to time Cranial nerves: Yes Equal, round and reactive pupils present and Yes Normal hearing present Speech: No Abnormal speech present Extrem General: Yes normal to inspection, No clubbing, No cyanosis and No edema Psych Appearance: grossly normal and well kempt Mental Status: mental status grossly normal Speech and movement: Normal speech and movement present Affect: normal affect Attitude: cooperative Thought process: Normal thought process present and not confabulating Thought content: Normal thought content present Insight: Poor insight present (Psych) Judgement: Poor judgement present (Psych) Results Reviewed Results Reviewed: HIDA SCAN 02/06/23 IMPRESSION: Visualization the gallbladder is evidence of a patent cystic duct and strong evidence against the diagnosis of acute cholecystitis. The common bile duct is patent. Liver function appears normal. Gallbladder contractility and ejection fraction are also normal, and these were demonstrated without the administration of CCK, as there was spontaneous normal gallbladder emptying visualized. Review of ER notes 02/06/2023 Medical Decision Making MDM Narrative: Patient was sent by nuclear medicine , currently she is normotensive, vital signs stable labs are normal except low K which we will replace. Anticipate discharge 4:20 PM she is doing better she is normotensive she received IV fluids again CBC chemistry normal she has cocaine in the urine. I think at this point we could discharge UA shows evidence of UTI urine cloudy with the several WBC will discharge on p.o. antibiotic ER labs Discharge Clinical Impression: Hypokalemia, Weakness, UTI (urinary tract infection) Patient Disposition: Home, Self-Care Instructions: Urinary Tract Infection in Women (DC) Prescriptions: New cephalexin 500 mg capsule 500 mg PO Q8H Qty: 21 0RF CORRESPONDENCE On 01/11/23 @ 08:45 Yanira Santos Wrote To Yanira Santos (2) She should stop the senna. She can take it only as needed if she feels constipated. Let us see how this works before we do anything else. On 01/11/23 @ 08:33 Holly Parker Wrote To DanielleJuly patient thinks its the senna. patient states during last appt w/ you some medications were changed and she is inquiring if she should continue taking the medications as prescribed/directed on 12/23/22 given that she is experiencing frequent diarrhea. patient states greater than five episodes daily and denies any other s/s at this time. patient reports that she hasn't lost her appetite but everything that she does eat makes her go to the bathroom. On 01/10/23 @ 17:18 Yanira Santos Wrote To Yanira Santos (2) IT IS LIKELY EITHER THE REGLAN OF THE SENNA. Roby can you see if it get a hold of her? On 01/10/23 @ 14:53 Anita Frank Wrote To Yanira Santos Patient lvm complaining about a medication is giving her diarrhea but she did not said the med name and also is not answering her phone. I see she is hving a follow up with you next week on 01/17 On 07/11/22 @ 09:48 Dorothy Navarrete Wrote To Danielle Pt scheduled for tomorrow no showed twice for US. On 06/14/22 @ 11:31 Yanira Santos Wrote To Dorothy Navarrete Well, despite the last stool being negative, I am going to try re treating her for c diff in case the lab result is a mistake. If she does not get the abx, it may be an insurance problem so please call her pharmacy and make sure she will be able to get it. Medication Orders fidaxomicin 200 mg PO Q12H 20 tabs 0RF 10 days New On 06/14/22 @ 11:22 Dorothy Navarrete Wrote To Danielle Pt called w/ c/o diarrhea. She states is watery and mustard color. Pt had US appt yesterday but she states she was not able to go d/t incontinence she is afraid to get out of her house. She states she is not taking any medication for constipation because she has diarrhea and imodium and dicyclomine not helping. Please advise. Assessment & Plan Assessment & Plan (1) Irritable bowel syndrome with diarrhea: Code(s): K58.0 - Irritable bowel syndrome with diarrhea (2) Peptic ulcer disease: Code(s): K27.9 - Peptic ulcer, site unspecified, unspecified as acute or chronic, without hemorrhage or perforation (3) GERD (gastroesophageal reflux disease): Code(s): K21.9 - Gastro-esophageal reflux disease without esophagitis (4) Weight loss, abnormal: Code(s): R63.4 - Abnormal weight loss (5) Nausea and vomiting: Code(s): R11.2 - Nausea with vomiting, unspecified (6) Diarrhea: Code(s): R19.7 - Diarrhea, unspecified (7) Right sided abdominal pain: Code(s): R10.9 - Unspecified abdominal pain Plan MALAGASY #Tamara Live SHE HAD VERY MILDLY LOW low potassium at 3.1 she also had cocaine in her urine. I asked her to bring all of her medications with her to the next visit because she never seems to know what she is taking. Obviously, the cocaine is concerning considering she has been seeing me for weight loss and diarrhea which has not any underlying medical reason expose the so far. She did have positive genetic screen for possible IBD in 2016 but subsequent colonoscopy in 2018 did not seem to play out with this and she has never had an elevated CRP. Will try getting a fecal calprotectin going forward. Apparently, she waited for 2 hours for an electrical maintenance supervisor at the last ER visit and they did not listen to me. She says she had 9 episodes of diarrhea when she was in the ER. She was having AMAYA, and pain in the back, stomach, eyes and chest and felt dehydrated. She was given a low K+ pill and Keflex for presumed UTI. BUT the Keflex caused her eyes to swell. She stopped it. She is also c/o difficulty swallowing. She had a food bolus that got stuck above the sternal notch and she had to force it down with fluids. This happened after the ER. She also is under the impression that she was told by the ER that she needed vitamins and lytes via IV and so she does not understand why she was not admitted. She says she requested phone #'s for case mgmt and admin to complain. For now will increase imipramine to 50mg qhs and reglan for 10mg qid as she has tolerated both w/lo s/e. I will research if there are better IBS-D meds depending on results of fecal calprotectin. AVOID VIBERZI GIVEN + COCAINE IN URINE!! I will retest urine to check for UTI, encourage her NOT to take the Keflex. She has the EGD/colonoscopy coming up in May, and the GES later this month. We review that the HIDA scan was negative. . ROV 3 weeks. GASTRIC EMPTYING STUDY EGD/COLONOSCOPY BIOPSY Orders: Orders Calprotectin, Fecal 02/09/23 R19.7 - Diarrhea, unspecified, R10.9 - Unspecified abdominal pain, R63.4 - Abnormal weight loss UA CC w/rflx Micro + Cult 02/09/23 R19.7 - Diarrhea, unspecified, R10.9 - Unspecified abdominal pain, R63.4 - Abnormal weight loss Medications: New imipramine HCl 50 mg PO BEDTIME 30 tabs 3RF R11.2 - Nausea with vomiting, unspecified, R19.7 - Diarrhea, unspecified metoclopramide HCl (Reglan) 10 mg PO QIDACHS 120 tabs 6RF R11.2 - Nausea with vomiting, unspecified Discontinued prednisone Discontinued Reason: Patient Completed Course 40 mg (2 x 20 mg) PO DAILY 10 tabs 0RF metoclopramide HCl Provider is aware of possible interactions with prozac and seroquel and is monitoring Discontinued Reason: Doctor's Order 5 mg PO QIDACHS 120 tabs 3RF K58.0 - Irritable bowel syndrome with diarrhea, R11.2 - Nausea with vomiting, unspecified On Hold sennosides (senna) Hold Comment: Doctor's Order 17.2 mg (2 x 8.6 mg) PO BEDTIME 30 days 60 caps 3RF constipation Coding Level of Care Code Est Pt Level 3 (01487) Diagnoses Irritable bowel syndrome with diarrhea K58.0 Peptic ulcer disease K27.9 GERD (gastroesophageal reflux disease) K21.9 Weight loss, abnormal R63.4 Nausea and vomiting R11.2 Diarrhea R19.7 Right sided abdominal pain R10.9
[2023-02-09 11:02] VITALS: BP 119/61; PULSE 86; BMI 20.8
== END 2023-02-09 11:59 | disposition home or self-care (01) ==
PROVIDERS: PCP General Practice; Visit Provider Nurse Practitioner
DX: K58.0 Irritable bowel syndrome with diarrhea (principal); K27.9 Peptic ulcer, site unspecified, unspecified as acute or chronic, without hemorrhage or perforation; K21.9 Gastro-esophageal reflux disease without esophagitis; R63.4 Abnormal weight loss; R11.2 Nausea with vomiting, unspecified; R19.7 Diarrhea, unspecified; R10.9 Unspecified abdominal pain
CPT/HCPCS: 99213

== ENCOUNTER 2023-02-17 16:00 | Outpatient (REF) | payer MEDICAID, SELFPAY ==
[2023-02-17 17:59] LABS: Anion Gap 12 (12-20); Blood Urea Nitrogen 11 mg/dL (9-16); Calcium 9.2 mg/dL (8.4-10.2); Carbon Dioxide 23 mmol/L (22-29); Chloride 109 mmol/L (96-108); Estimated Glomerular Filt Rate > 60; Glucose Random 97 mg/dL (60-115); Potassium 3.6 mmol/L (3.3-5.1); Sodium 140 mmol/L (135-145)
[2023-02-17 18:02] LABS: TSH reflex Free T4 0.36 uIU/mL (0.32-4.0); Vitamin D 25-OH Total 57.3 ng/mL (>30)
[2023-02-17 18:14] LABS: Folate 12.6 ng/mL (> or = 4.0); Vitamin B12 510 pg/mL (200-900)
== END 2023-02-17 16:01 | disposition home or self-care (01) ==
LOC: HO.HHCL 16:00
PROVIDERS: Visit Provider General Practice
DX: R53.83 Other fatigue (principal)
CPT/HCPCS: 36415; 80048; 82306; 82607; 82746; 84443

== ENCOUNTER 2023-03-01 09:41 | Outpatient (REF) | payer MEDICAID, SELFPAY ==
[2023-03-01 10:42] LABS: Appearance Urine Clear; Color Urine Yellow; Glucose Urine UA Negative (Negative); Leukocyte Esterase Urine Negative (Negative); Nitrite Urine Negative (Negative); PH 6.5 (5.0-9.0); Urine Blood Negative (Negative); Urine Ketones Negative (Negative); Urine Protein Negative (Neg-Trace)
[2023-03-06 20:58] LABS: Calprotectin, Fecal 8 mcg/g
== END 2023-03-01 09:42 | disposition home or self-care (01) ==
LOC: HO.LAB 09:41
PROVIDERS: PCP General Practice; Visit Provider Nurse Practitioner
DX: R63.4 Abnormal weight loss (principal); R19.7 Diarrhea, unspecified; R10.9 Unspecified abdominal pain
CPT/HCPCS: 81003; 83993

== ENCOUNTER → 2023-03-28 08:38 | Outpatient (REF) | payer MEDICAID, SELFPAY ==
--- NOTE | ~2023-03-28 | NM_ITS ---
EXAMINATION: SD RADIONUCLIDE SOLID FOOD GASTRIC EMPTYING 4-HOUR STUDY CLINICAL INFORMATION: Abnormal weight loss. COMPARISON: Radionuclide biliary scintigraphy done on 02/06/2023. TECHNIQUE: A standard meal consisting of 4 oz of Egg Beaters brand tagged with 1000 microcuries Tc-99m Sulfur Colloid, 8 oz water and 2 slices of toast with jelly was administered orally to the patient. Images were obtained using a dual head gamma camera in the anterior and posterior projections over of the stomach immediately post ingestion and at hourly intervals up to 4 hours post ingestion. The anterior and posterior counts at each time interval were averaged using the geometric mean and expressed as percentage of the immediate post ingestion counts. FINDINGS: There is good visualization of activity in the stomach immediately post ingestion. As the study progresses, there is good clearance of activity from the stomach and visualization of progressively increasing small bowel activity. By the end of the study, there is almost no retention noted in the stomach. Retention in the stomach at each time interval was: 1 hour 55% (normal 37%-90%) 2 hours 62% (normal 30%-60%) 3 hours 23% 4 hours 1% (normal 0%-10%) SD/SD gastric emptying study IMPRESSION: Normal 4-hour solid food gastric emptying study. For solid meal, rapid gastric emptying is less than 30% at 60 minutes. Delayed gastric emptying criteria is more than 60% remaining at 120 minutes or more than 10% at 240 minutes. The 4-hour value is the best discriminator of a normal or abnormal result). Gastric emptying study grading per JNMT Consensus Recommendations in 2008 (https://tech.snmjournals.org/content/36/44) Grade 1 (mild retention): 11-20% at 4h Grade 2 (moderate retention): 21-35% at 4h Grade 3 (severe retention): 36-50% at 4h Grade 4 (very severe retention): >50% retention at 4h
== END ==
LOC: HO.NUCMED 08:38
PROVIDERS: PCP General Practice; Visit Provider Nurse Practitioner
DX: R63.4 Abnormal weight loss (principal); R10.9 Unspecified abdominal pain; R31.9 Hematuria, unspecified
CPT/HCPCS: 78264; A9541

== ENCOUNTER 2023-05-15 15:13 | Outpatient (REF) | payer MEDICAID, SELFPAY ==
--- NOTE | ~2023-05-15 | XR_ITS ---
EXAMINATION: XR HAND LEFT XR WRIST LEFT CLINICAL INFORMATION: Injury of the left hand and wrist area. Window fell on the wrist 2 weeks ago. COMPARISON: None TECHNIQUE: Left wrist, 4 views Left hand, 3 views FINDINGS: Left wrist: Bones, joints and soft tissues have a normal appearance. No radiopaque foreign body or soft tissue gas. Left hand: Bones, joints and soft tissues are normal. The metacarpophalangeal and interphalangeal joint spaces are well-preserved. No radiopaque foreign body or overt soft tissue swelling. XR/XR wrist LT 2V IMPRESSION: * No fracture or malalignment in the left wrist or hand. * No evidence of radiopaque foreign body after recent trauma.
--- NOTE | ~2023-05-15 | XR_ITS ---
EXAMINATION: XR HAND LEFT XR WRIST LEFT CLINICAL INFORMATION: Injury of the left hand and wrist area. Window fell on the wrist 2 weeks ago. COMPARISON: None TECHNIQUE: Left wrist, 4 views Left hand, 3 views FINDINGS: Left wrist: Bones, joints and soft tissues have a normal appearance. No radiopaque foreign body or soft tissue gas. Left hand: Bones, joints and soft tissues are normal. The metacarpophalangeal and interphalangeal joint spaces are well-preserved. No radiopaque foreign body or overt soft tissue swelling. XR/XR hand LT min 3V IMPRESSION: * No fracture or malalignment in the left wrist or hand. * No evidence of radiopaque foreign body after recent trauma.
== END 2023-05-15 15:14 | disposition home or self-care (01) ==
LOC: HO.HHCX 15:13
PROVIDERS: Visit Provider Nurse Practitioner Family
DX: M79.642 Pain in left hand (principal)
CPT/HCPCS: 73100; 73130

== ENCOUNTER 2023-05-15 16:31 | Outpatient (REF) | payer MEDICAID, SELFPAY ==
[2023-05-15 17:43] LABS: MANUAL DIFF FLAG NO
[2023-05-15 17:57] LABS: Basophils Percent Auto 0.4 % (0-2); Hematocrit 40.3 % (37.0-47.0); Hemoglobin 13.9 g/dl (12.0-16.0); Imm Gran Abs Auto 0.03 X10*3/uL (0.00-0.03); Imm Gran Pct Auto 0.4 % (0.0-0.4); Lymphocytes Absolute Auto 2.1 X10*3/uL (1.2-4.9); Lymphocytes Percent Auto 24.7 % (20-40); Mean Corpuscular HGB Conc 34.5 g/dl (31.0-35.0); Mean Corpuscular Hemoglobin 30.5 pg (27.0-33.0); Mean Corpuscular Volume 88.4 fL (80.0-98.0); Mean Platelet Volume 10.2 fL (9.4-12.3); Monocytes Absolute Auto 0.3 X10*3/uL (0.1-1.2); Monocytes Percent Auto 3.9 % (2-11); Neutrophils Absolute Auto 5.9 x10*3/uL (2.0-8.3); Neutrophils Percent Auto 70.6 % (45-73); Platelet Count 302 X10*3/uL (160-400); Red Blood Count 4.56 X10*6/uL (4.20-5.50); Red Cell Distribution Width 12.3 % (11.0-16.0); White Blood Count 8.4 X10*3/uL (4.8-10.8)
[2023-05-15 18:13] LABS: Alanine Aminotransferase 21 U/L (0-31); Albumin Level 4.6 g/dL (3.5-5.0); Alkaline Phosphatase 62 U/L (39-117); Anion Gap 15 (12-20); Aspartate Amino Transferase 21 U/L (5-31); Bilirubin Total 0.7 mg/dL (0.0-1.0); Blood Urea Nitrogen 18 mg/dL (9-16); C Reactive Protein < 0.04 mg/dL (< or = 0.50); Calcium 9.7 mg/dL (8.4-10.2); Carbon Dioxide 21 mmol/L (22-29); Chloride 105 mmol/L (96-108); Estimated Glomerular Filt Rate > 60; Glucose Random 97 mg/dL (60-115); Potassium 4.1 mmol/L (3.3-5.1); Sodium 137 mmol/L (135-145); Total Protein 7.8 g/dL (6.5-8.0)
[2023-05-15 18:53] LABS: Erythrocyte Sedimentation Rate 10 MM/HR (0-20)
== END 2023-05-15 16:32 | disposition home or self-care (01) ==
LOC: HO.HHCL 16:31
PROVIDERS: Visit Provider General Practice
DX: R63.4 Abnormal weight loss (principal)
CPT/HCPCS: 36415; 80053; 85025; 85652; 86140

== ENCOUNTER 2023-05-16 14:45 | Outpatient (REF) | payer MEDICAID, SELFPAY ==
--- NOTE | ~2023-05-16 | US_ITS ---
EXAMINATION: US RETROPERITONEAL LIMITED (RENAL ONLY) CLINICAL INFORMATION: Abnormal weight loss. Right-sided abdominal pain, hematuria. COMPARISON: X-ray abdomen 05/25/2022. CT abdomen and pelvis 03/15/2022. Ultrasound kidneys and bladder 12/29/2017. TECHNIQUE: Real-time imaging of the kidneys. Limited visualization due to bowel gas. FINDINGS: RIGHT KIDNEY: 11.2 x 4.2 x 5.4 cm (SAG x AP x TRV). Trace fullness right renal pelvis. No renal calculi. Renal cortical thickness is normal. Limited visualization. LEFT KIDNEY: 10.3 x 3.8 x 4.3 cm (SAG x AP x TRV). Trace fullness left renal pelvis. No renal calculi. Renal cortical thickness is normal. Limited visualization. US/US renal BI IMPRESSION: Trace fullness bilateral renal pelvises. No renal calculi.
== END 2023-05-16 14:46 | disposition home or self-care (01) ==
LOC: HO.US 14:45
PROVIDERS: PCP General Practice; Visit Provider Nurse Practitioner
DX: R63.4 Abnormal weight loss (principal); R10.9 Unspecified abdominal pain; R31.9 Hematuria, unspecified
CPT/HCPCS: 76775

== ENCOUNTER 2023-05-18 13:01 | Outpatient (REF) | payer MEDICAID, SELFPAY ==
[2023-05-18 16:15] LABS: Estimated Glomerular Filt Rate > 60
[2023-05-19 03:50] LABS: Syphilis Screen Nonreactive (Nonreactive)
[2023-05-19 04:05] LABS: HBS Num1 350.97 mIU/mL (0-7.99); ~HepC Num1 0.26 S/CO (0.00-0.79); ~Hepatitis B Surface Antibody REACTIVE (Nonreactive); ~Hepatitis C Antibody Nonreactive (Nonreactive)
[2023-05-22 15:18] LABS: HIV RNA PCR Qn Copies NOT DETECTED copies/mL (NOT DETECTED); HIV RNA PCR Qn Log Copies NOT DETECTED (NOT DETECTED)
== END 2023-05-18 13:02 | disposition home or self-care (01) ==
LOC: HO.HHCL 13:01
PROVIDERS: Visit Provider General Practice
DX: Z11.3 Encounter for screening for infections with a predominantly sexual mode of transmission (principal)
CPT/HCPCS: 36415; 82565; 86706; 86780; 86803; 87536

== ENCOUNTER 2023-05-19 10:23 | Day surgery (SDC) | payer MEDICAID, SELFPAY ==
[2023-05-17 10:59] VITALS: BMI 20.8
--- NOTE | 2023-05-18 09:04 | P.CONAN_ITS ---
Documented by User: Tena Alonso NP 05/18/23 09:05 HPI - Anesthesia Eval Consult details Narrative: 42yo F for Upper Endoscopy and Colonoscopy PMF Active Problems Active Problems: All Active Problems (Updated 05/17/23 @ 10:56 by Beatriz Martinez, RN) Family history of colon cancer (Acute) Weight loss, abnormal (Acute) Right sided abdominal pain (Acute) Back pain (Acute) Nausea and vomiting (Acute) C. difficile colitis (Acute) Abdominal pain (Acute) Diarrhea (Acute) Anxiety and depression (Acute) Asthma (Acute) Bipolar disorder (Acute) Irritable bowel syndrome with diarrhea (Acute) Peptic ulcer disease (Acute) Abdominal bloating (Acute) H. pylori infection (Acute) GERD (gastroesophageal reflux disease) (Acute) Past Medical History Medical History (Updated 05/17/23 @ 10:56 by Beatriz Martinez, HERNANDEZ) Asthma GERD (gastroesophageal reflux disease) Bipolar disorder Anxiety and depression Constipation Diarrhea Surgical History Surgical History History of esophagogastroduodenoscopy (EGD) H/O colonoscopy History of tubal ligation History of section Social History Social History (Reviewed 02/09/23 @ 11:17 by Dorothy Roberts [facility]) Alcohol intake: never Patient Tobacco Use Status: Former Tobacco user Tobacco use type: Cigarette Smoked in Last 30 Days: No Use of substances other than those prescribed or required for medical reasons: No Substance Use Type: Marijuana Substance Use Type Other:: pt denies Are you DNR?: No Advance Directives: No Advance Directives Information Provided: Yes Meds Allergies Allergy/AdvReac Type Severity Reaction Status Date / Time cephalexin [From Keflex] Allergy Intermediate Eye Verified 05/19/23 11:17 Swelling morphine Allergy Intermediate Itching Verified 05/19/23 11:17 shellfish derived Allergy Intermediate swelling Verified 05/19/23 11:17 [SHELLFISH DERIVED] Home Medications Medication Instructions Recorded Confirmed Last Taken Type cholecalciferol (vitamin D3) 50 50 mcg PO QAM 01/06/22 05/17/23 Unknown History mcg (2,000 unit) tablet fluoxetine 20 mg capsule 40 mg PO QAM 01/06/22 05/17/23 Unknown History fluticasone propionate 220 1 puff inhalation BID 01/06/22 05/17/23 Unknown History mcg/actuation HFA aerosol inhaler (Flovent HFA) fluticasone propionate 50 2 spray intranasal DAILY 01/06/22 05/17/23 Unknown History mcg/actuation nasal spray,suspension loratadine 10 mg tablet (Allergy 10 mg PO DAILY 01/06/22 05/17/23 Unknown History Relief (loratadine)) montelukast 10 mg tablet 10 mg PO QPM asthma 01/06/22 05/17/23 Unknown History multivitamin-iron sulfate 15 1 tab PO QAM 01/06/22 05/17/23 Unknown History mg-folic acid 400 mcg tablet (Tab-A-Kisha Multivitamin w-iron) riboflavin (vitamin B2) 100 mg 400 mg PO DAILY 01/06/22 05/17/23 Unknown History tablet (Vitamin B-2) ropinirole 4 mg tablet 4 mg PO BEDTIME 01/06/22 05/17/23 Unknown History topiramate 25 mg tablet 25 mg PO BEDTIME 01/06/22 Unknown History albuterol sulfate 2.5 mg/3 mL 2.5 mg inhalation Q4-6H 04/01/22 05/17/23 Unknown History (0.083 %) solution for nebulization calcium carbonate 300 mg (750 mg) 1 - 2 tab PO DIRECTED 04/01/22 Unknown History chewable tablet (Antacid Extra Strength (calcium carb)) clonazepam 1 mg tablet 1 mg PO TID PRN Anxiety 04/01/22 05/17/23 Unknown History diphenhydramine HCl 25 mg capsule 25 - 50 mg PO BEDTIME PRN insomnia 04/01/22 05/17/23 Unknown History (Banophen) ketotifen fumarate 0.025 % (0.035 1 drp ophthalmic (eye) BID 04/01/22 Unknown History %) eye drops quetiapine 100 mg tablet 100 mg PO BID PRN Anxiety 07/21/22 05/17/23 Unknown History quetiapine 300 mg tablet 300 mg PO BEDTIME 07/21/22 05/17/23 Unknown History duloxetine 20 mg capsule,delayed 20 mg PO QAM 01/17/23 05/17/23 Unknown History release famotidine 20 mg tablet 20 mg PO QPM 01/17/23 05/17/23 Unknown History vitamin with calcium 1 tab PO QAM 01/17/23 05/17/23 Unknown History no.72-iron 27 mg-folic acid 1 mg tablet ( Vitamins Plus Low Iron) Exam Height,Weight and Vital Signs: Height 5 ft 7 in Weight 60.328 kg Pertinent Lab Results Pertinent Lab Results: Laboratory Tests 05/15/23 16:35 WBC 8.4 Hgb 13.9 Hct 40.3 Plt Count 302 Sodium 137 Potassium 4.1 Chloride 105 Carbon Dioxide 21 L BUN 18 H Creatinine 0.90 Assessment and Plan Assessment Anesthesia Assessment: Chart Reviewed Documented by User: Oliva Michel MD 05/19/23 12:06 [facility] Past Medical History Medical History (Updated 05/17/23 @ 10:56 by Beatriz Martinez RN) Asthma GERD (gastroesophageal reflux disease) Bipolar disorder Anxiety and depression Constipation Diarrhea Family History Family history of problems with anesthesia: No Surgical History Surgical History History of esophagogastroduodenoscopy (EGD) H/O colonoscopy History of tubal ligation History of section History of Problems with Anesthesia: No Social History Social History (Reviewed 02/09/23 @ 11:17 by Dorothy Roberts [facility]) Alcohol intake: never Patient Tobacco Use Status: Former Tobacco user Tobacco use type: Cigarette Smoked in Last 30 Days: No Use of substances other than those prescribed or required for medical reasons: No Substance Use Type: Marijuana Substance Use Type Other:: pt denies Are you DNR?: No Advance Directives: No Advance Directives Information Provided: Yes Meds Allergies Allergy/AdvReac Type Severity Reaction Status Date / Time cephalexin [From Keflex] Allergy Intermediate Eye Verified 05/19/23 11:17 Swelling morphine Allergy Intermediate Itching Verified 05/19/23 11:17 shellfish derived Allergy Intermediate swelling Verified 05/19/23 11:17 [SHELLFISH DERIVED] Home Medications Medication Instructions Recorded Confirmed Last Taken Type cholecalciferol (vitamin D3) 50 50 mcg PO QAM 01/06/22 05/17/23 Unknown History mcg (2,000 unit) tablet fluoxetine 20 mg capsule 40 mg PO QAM 01/06/22 05/17/23 Unknown History fluticasone propionate 220 1 puff inhalation BID 01/06/22 05/17/23 Unknown History mcg/actuation HFA aerosol inhaler (Flovent HFA) fluticasone propionate 50 2 spray intranasal DAILY 01/06/22 05/17/23 Unknown History mcg/actuation nasal spray,suspension loratadine 10 mg tablet (Allergy 10 mg PO DAILY 01/06/22 05/17/23 Unknown History Relief (loratadine)) montelukast 10 mg tablet 10 mg PO QPM asthma 01/06/22 05/17/23 Unknown History multivitamin-iron sulfate 15 1 tab PO QAM 01/06/22 05/17/23 Unknown History mg-folic acid 400 mcg tablet (Tab-A-Kisha Multivitamin w-iron) riboflavin (vitamin B2) 100 mg 400 mg PO DAILY 01/06/22 05/17/23 Unknown History tablet (Vitamin B-2) ropinirole 4 mg tablet 4 mg PO BEDTIME 01/06/22 05/17/23 Unknown History topiramate 25 mg tablet 25 mg PO BEDTIME 01/06/22 Unknown History albuterol sulfate 2.5 mg/3 mL 2.5 mg inhalation Q4-6H 04/01/22 05/17/23 Unknown History (0.083 %) solution for nebulization calcium carbonate 300 mg (750 mg) 1 - 2 tab PO DIRECTED 04/01/22 Unknown History chewable tablet (Antacid Extra Strength (calcium carb)) clonazepam 1 mg tablet 1 mg PO TID PRN Anxiety 04/01/22 05/17/23 Unknown History diphenhydramine HCl 25 mg capsule 25 - 50 mg PO BEDTIME PRN insomnia 04/01/22 05/17/23 Unknown History (Banophen) ketotifen fumarate 0.025 % (0.035 1 drp ophthalmic (eye) BID 04/01/22 Unknown History %) eye drops quetiapine 100 mg tablet 100 mg PO BID PRN Anxiety 07/21/22 05/17/23 Unknown History quetiapine 300 mg tablet 300 mg PO BEDTIME 07/21/22 05/17/23 Unknown History duloxetine 20 mg capsule,delayed 20 mg PO QAM 01/17/23 05/17/23 Unknown History release famotidine 20 mg tablet 20 mg PO QPM 01/17/23 05/17/23 Unknown History vitamin with calcium 1 tab PO QAM 01/17/23 05/17/23 Unknown History no.72-iron 27 mg-folic acid 1 mg tablet ( Vitamins Plus Low Iron) Exam Airway Mallampati Class: II TM Dist: >3cm Neck ROM: Full Heart: rrr Lungs: cta Assessment and Plan Assessment Anesthesia Assessment: Anesthesia Plan Discussed Final Anesthetic Review Family History of Problems with Anesthesia: No History of Problems with Anesthesia: No NPO: Yes ASA Class: II Final Preanesthetic Review: No Changes in Pt Med Stat, Meds/Allgs Chart Reviewed and Consent Obtained/Reviewed Patient Risk: Intermediate Procedure Risk: Intermediate Anesthetic Plan Anesthetic Plan: MAC: Disposition: Standard PACU
[2023-05-19 11:21] VITALS: BMI 19.4
[2023-05-19 11:30] LABS: Amphetamine Screen Urine Not Detected (Not Detect); Barbiturates, Urine Not Detected (Not Detect); Benzodiazepines Screen Urine Not Detected (Not Detect); Cannabinoid Screen Urine POSITIVE (Not Detect); Cocaine Screen Urine Not Detected (Not Detect); Fentanyl, urine Not Detected (Not Detect); Opiate Screen Urine Not Detected (Not Detect); Phencyclidine Screen Urine Not Detected (Not Detect)
[2023-05-19 11:32] VITALS: BP 109/40; PULSE 58; RESP 16; TEMP 37.2; O2SAT 97
--- NOTE | 2023-05-19 11:47 | MHC.SHP ---
Pre-Procedural Eval Section A - 24 Hr Update-Section A only Date of Service: 05/19/23 The patient is an INPATIENT: No The patient has been examined within 24 hours of the surgical procedure. The History & Physical has been completed within 30 days and I have reviewed it.: No Section B - Complete if H&P > 30 days Chief Complaint: Abdominal pain, diarrhea, weight loss Relevant Family History (Specify if Yes): Yes Relevant Social History: None Present Medications: see Short Stay Collaborative assessment Medical History: Significant History (Constipation Diarrhea, asthma) History of Previous Operations: Relevant previous surgery/procedure and date(s) (H/O colonoscopy History of tubal ligation History of section) Allergies: Allergies Allergy/AdvReac Type Severity Reaction Status Date / Time cephalexin [From Keflex] Allergy Intermediate Eye Verified 05/19/23 11:17 Swelling morphine Allergy Intermediate Itching Verified 05/19/23 11:17 shellfish derived Allergy Intermediate swelling Verified 05/19/23 11:17 [SHELLFISH DERIVED] Review of Systems Sugical H&P ROS: Negative: Constitution, Cardiovascular, Respiratory and Gastrointestinal Exam Surgical H&P Exam: Normal: Heart, Normal: Lungs, Normal: Extremities and Normal: Abdomen Plan Diagnosis/Plan: Unchanged I have reviewed the history and physical and performed a pertinent physical examination on my patient. No changes have occurred unless specified. Time Spent With Patient Time: Total time managing care of this patient today ____ minutes.
[2023-05-19] MEDS: Lactated Ringers 1,000 ML 100 ML IVCONT (11:52)
--- NOTE | 2023-05-19 13:05 | W.PM.OPN ---
Operative Note Operative Note Date of Service: 05/19/23 Narrative: FLEXIBLE TRANSORAL UPPER GASTROINTESTINAL ENDOSCOPY WITH BIOPSIES AND COLONOSCOPY TILL CECUM WITH BIOPSIES Pre-op diagnosis: Abdominal Pain, Diarrhea, Weight Loss Post-op diagnosis: Gastritis, diverticulosis Endoscopist:? Fadi Zhu MD Anesthesia:?MAC UPPER ENDOSCOPY Consent: Indications for the procedure and potential complications of bleeding, perforation, reaction to medications and missed diagnosis were discussed with the patient with the help of an [facility] [place] Warp Placer and informed consent was obtained. Instrument: Olympus GIF H 190 mid size upper endoscope Monitoring: Vital signs and clinical assessment, continuous EKG monitoring, Pulse oximetry, Carbon Dioxide monitoring and blood pressure monitoring were done throughout the procedure. Procedure: The patient was placed in the left lateral decubitis position and pre-procedure medications were administered and a bite block was placed. The endoscope was inserted into the mouth and advanced under direct vision to the third part of duodenum. A careful inspection was made as the upper endoscope was withdrawn including a retroflexed examination of the proximal stomach; Findings and interventions are described below. Findings: Larynx: Normal Esophagus: GE junction at 35 cms. No esophagitis or Hart's. Stomach: Focal erythema and edema overlying a gastric fold in the gastric body along the greater curve - biopsied. Mild gastric antral erythema. Biopsies were obtained. Grade 2 flap valve on retroflexed examination of the cardia. Duodenum: Normal bulb and descending duodenum. Biopsies were obtained from 3rd part of duodenum to check for celiac sprue. Intervention: Biopsies as noted above COLONOSCOPY PROCEDURE NOTE Consent: Indications for the procedure and potential complications of bleeding, perforation, reaction to medications and missed diagnosis were discussed with the patient and informed consent was obtained. Instrument: Olympus PCF H 190 L variable stiffness pediatric colonoscope Monitoring: Vital signs and clinical assessment, intermittent blood pressure monitoring, continuous EKG monitoring, Pulse oximetry and Carbon Dioxide monitoring were done throughout the procedure. Colon withdrawl time was 13 minutes. Procedure: The patient was placed in the left lateral decubitis position and pre-procedure medications were administered. After a digital rectal examination of the ano-rectum, the video colonoscope was inserted into the rectum and advanced through the colon to the cecum. The colonoscope was slowly withdrawn in a retrograde panoramic fashion and the colon mucosa was carefully examined including a retroflexed view of the rectum. Findings and interventions are described below. Procedure Difficulty: Colon was long and tortuous and there was recurrent tube for me. Findings: Terminal Ileum: Distal 4-5 cms was examined and appeared normal. Random biopsies were obtained Cecum: Normal Ascending Colon: Normal Transverse Colon: Normal Descending Colon: Friable appearing mucosa with patchy in the left colon - random biopsies were obtained Sigmoid Colon: Moderate diverticulosis Rectum: Normal Ano-rectum: Normal Colon preparation: Good in the left colon after copious irrigation and Fair with adherent stools in the right and transverse colon Impression and Post Procedure Diagnosis: Endoscopy Findings: STOMACH: Focal erythema and edema overlying a gastric fold in the gastric body along the greater curve - biopsied. Mild gastric antral erythema. Biopsies were obtained. Colonoscopy Findings: No polyps were detected Friable appearing mucosa with patchy in the left colon - random biopsies were obtained Moderate diverticulosis seen in the sigmoid colon Plan: Await pathology results Patient has an appointment on 05/23/23 in the GI Clinic with Yanira Santos NP . Repeat Colonoscopy interval based on path results - in 10 years if biopsies are normal. Above findings were reviewed with the patient with the help of a [place] risk control product liability director and Gastritis and diverticulosis handouts were given in the discharge area BIOPSIES SHOWED: A. Small bowel, biopsy: Small bowel mucosa with preserved villi and no specific change; no evidence of celiac disease. B. Gastric antrum, biopsy: Gastric antral mucosa with focal minimal chronic inactive inflammation; negative for H pylori, intestinal metaplasia and dysplasia. C. Gastric fold, biopsy: Gastric body mucosa with minimal chronic inactive gastritis; negative for H pylori, intestinal metaplasia and dysplasia. D. Terminal ileum, biopsy: Ileal mucosa with reactive lymphoid follicles consistent with Peyer's patches, and no specific change; no ileitis, granulomas or dysplasia. E. Colon, right, biopsy: Colonic mucosa with no specific change; no colitis, granulomas or dysplasia. F. Colon, left, biopsy: Colonic mucosa with no specific change; no colitis, granulomas or dysplasia
[2023-05-19 14:00] VITALS: BP 112/69; PULSE 70; RESP 18; TEMP 36.1; O2SAT 100
[2023-05-19 14:15] VITALS: BP 108/74; PULSE 83; RESP 14; O2SAT 100
[2023-05-19 14:30] VITALS: BP 99/69; PULSE 61; RESP 15; O2SAT 100
[2023-05-19 14:45] VITALS: BP 113/66; PULSE 58; RESP 14; O2SAT 100
[2023-05-19 15:00] VITALS: BP 117/70; PULSE 64; RESP 16; TEMP 36.6; O2SAT 100
== END 2023-05-19 15:23 | disposition home or self-care (01) ==
PROVIDERS: Anesthesiology; PCP General Practice; Visit Provider Internal Medicine Gastroenterology
PROC: (CPT 43239; principal; 2023-05-19 13:00)
DX: K29.60 Other gastritis without bleeding (principal); R63.4 Abnormal weight loss; Z68.20 Body mass index [BMI] 20.0-20.9, adult; K56.2 Volvulus; K57.30 Diverticulosis of large intestine without perforation or abscess without bleeding; Z80.0 Family history of malignant neoplasm of digestive organs; Z79.899 Other long term (current) drug therapy
CPT/HCPCS: 43239; 45380; 80307; 88305; 88313; 88342; J1596; J2405; J2704; J3010

== ENCOUNTER → 2023-05-19 10:23 | Outpatient (BNV) | payer MEDICAID, SELFPAY | PROVIDERS: PCP General Practice; Visit Provider Internal Medicine Gastroenterology | DX: K29.70 Gastritis, unspecified, without bleeding (principal); K57.90 Diverticulosis of intestine, part unspecified, without perforation or abscess without bleeding | CPT/HCPCS: 43239; 45380 ==

== ENCOUNTER 2023-05-23 11:16 | Outpatient (AMB) | payer MEDICAID, SELFPAY ==
[2023-05-23 11:25] VITALS: BP 106/63; PULSE 91; BMI 19.3
--- NOTE | 2023-05-23 11:25 | MHC.OFFVIS ---
Intake Vital Signs 05/23/23 11:25 Height 5 ft 7 in Weight 123 lb BMI 19.3 BP 106/63 Blood Pressure Location Lt brachial Position Sitting Pulse 91 Intake Visit Reasons: Follow up colo/EGD Intake Note: Kera returns to in office follow up of EGD/Colonoscopy. CC: Patient underwent EGD/Colonoscopy on 05/[address] Zhu. She c/o abdominal pain, rectal bleeding, nausea, and vomiting. Helper Animal Laboratory Required: Yes Helper Animal Laboratory Name: Kashif [id number] Accompanied by: Self / Same As Patient Allergies cephalexin [From Keflex] Allergy (Intermediate, Verified 05/23/23 11:41) Eye Swelling morphine Allergy (Intermediate, Verified 05/23/23 11:41) Itching shellfish derived [SHELLFISH DERIVED] Allergy (Intermediate, Verified 05/23/23 11:41) swelling HPI Follow up colo/EGD HPI Details PAPUA [place] #[facility] SHE HAD VERY MILDLY LOW low potassium at 3.1 she also had cocaine in her urine. I asked her to bring all of her medications with her to the next visit because she never seems to know what she is taking. Obviously, the cocaine is concerning considering she has been seeing me for weight loss and diarrhea which has not any underlying medical reason expose the so far. She did have positive genetic screen for possible IBD in 2016 but subsequent colonoscopy in 2018 did not seem to play out with this and she has never had an elevated CRP. Will try getting a fecal calprotectin going forward. Apparently, she waited for 2 hours for an lugger at the last ER visit and they did not listen to me. She says she had 9 episodes of diarrhea when she was in the ER. She was having AMAYA, and pain in the back, stomach, eyes and chest and felt dehydrated. She was given a low K+ pill and Keflex for presumed UTI. BUT the Keflex caused her eyes to swell. She stopped it. She is also c/o difficulty swallowing. She had a food bolus that got stuck above the sternal notch and she had to force it down with fluids. This happened after the ER. She also is under the impression that she was told by the ER that she needed vitamins and lytes via IV and so she does not understand why she was not admitted. She says she requested phone #'s for case mgmt and admin to complain. For now will increase imipramine to 50mg qhs and reglan for 10mg qid as seh has tolerated both w/lo s/e. Will research if there are better IBS-D meds depending on results of fecal calprotectin.AVOID VIBERZI GIVEN + COCAINE IN URINE!! Will retest urine to check for UTI, encourage her NOT to take the Keflex. She has the EGD/colonoscopy coming up in May, and the GES later this month. We review that the HIDA scan was negtive. ROV 3 weeks. Laboratory Tests 03/01/23 11:58 Stool Calprotectin 8 GASTRIC EMPTYING STUDY 03/28/23 IMPRESSION: Normal 4-hour solid food gastric emptying study. EGD/COLONOSCOPY 05/19/23 Findings: Larynx: Normal Esophagus: GE junction at 35 cms. No esophagitis or Hart's. Stomach: Focal erythema and edema over at gastric fold in the gastric body along the greater curve - Mild gastric antral erythema. Biopsies were obtained. Grade 2 flap valve on retroflexed examination of the cardia. Duodenum: Normal bulb and descending duodenum Findings: Terminal Ileum: Distal 4-5 cms was examined and appeared normal. Random biopsies were obtained Cecum: Normal Ascending Colon: Normal Transverse Colon: Normal Descending Colon: Friable appearing mucosa with patchy in the left colon - random biopsies were obtained Sigmoid Colon: Moderate diverticulosis Rectum: Normal Ano-rectum: Normal Colon preparation: Good in the left colon after copious irrigation and Fair with adherent stools in the right and transverse colon Impression and Post Procedure Diagnosis: Endoscopy Findings: LARYNX: [] ESOPHAGUS: [] STOMACH: [] DUODENUM: [] Colonoscopy Findings: No polyps were detected Friable appearing mucosa with patchy in the left colon - random biopsies were obtained Moderate diverticulosis seen in the sigmoid colon Plan: Await pathology results Patient has an appointment on 05/23/23 in the GI Clinic with Yanira Santos NP . Repeat Colonoscopy interval based on path results - in 10 years if biopsies are normal. EGD/colonoscopy BIOPSY Pending at the time of this note TODAY'S VISIT PAPUA [place]INEAN #[id number], Kashif She tolerated the procedures well. I made her aware that the fecal calprotectin was normal, and that the biopsy for the colonoscopy is not back yet. She is having terrible trouble reaching the office via phone, she says she has left over 10 messages. She says that one of the medicines I gave her caused more diarrhea, this is likely trena reglan, and given the normal GES will stop this medicine. It also did not help the N/V. She did receive the higher dose of the imipramine and is tolerating it, but hard to evaluate given the s/e of the reglan. For now no other medication changes, ROV 2 weeks to go over biopsy and if I can not find a treatable GI pathology, get second opinion from MD and also consider if N/V metabolic, neurologic, psychogenic or even occult cancer. She again is asking about IV feedings and vitamins, but I explain that this is not a practical outpatient solution; gian without a known pathology. ROV 2 weeks. [facility] Medical History Asthma GERD (gastroesophageal reflux disease) Bipolar disorder Anxiety and depression Constipation Diarrhea Surgical History History of esophagogastroduodenoscopy (EGD) H/O colonoscopy History of tubal ligation History of section Social History Alcohol intake: never Patient Tobacco Use Status: Former Tobacco user Tobacco use type: Cigarette Substance Use Type: Marijuana Review of Systems Const Denies fatigue, Denies fever(s), Denies night sweats, Reports poor appetite and Reports weight loss Eyes Details: glasses Reports requires corrective lenses ENT Reports Normal hearing present, Denies dental pain, Denies dysphagia, Denies hearing loss, Denies mouth pain, Denies odynophagia, Denies throat swelling, Denies tongue swelling and Reports other (Dentition adequate) Card Reports no additional complaints Resp Reports no additional complaints GI Details: Denies abdominal pain, Denies melena, Denies bloating, Denies hematochezia, Denies constipation, Denies GI cramping, Denies dysphagia, Denies excessive flatus, Denies early satiety, Reports heartburn, Reports diarrhea, Reports nausea, Denies odynophagia, Reports vomiting and Denies hematemesis Skin/Breast Denies pruritus, Denies lesions, Denies rash and Denies jaundice Neuro Reports Normal hearing present and Denies Abnormal speech present Psych Reports anxiety Endo Denies fatigue Aller/Immun Denies throat swelling and Denies tongue swelling Physical Exam Vital Signs: Last Vital Signs Pulse 91 05/23/23 11:25 BP 106/63 05/23/23 11:25 BMI result Body Mass Index 19.3 Const General: cooperative, no acute distress, well developed and well groomed Nutritional Appearance: average body habitus and well nourished Orientation/consciousness: oriented to person, oriented to place and oriented to time Limitations: No language barrier HEENT Head: Yes normocephalic and Yes atraumatic Eyes General: appearance normal, both eyes and all related structures Pupils: Equal, round and reactive pupils present Neck Neck: Yes normal visual inspection and Yes no lymphadenopathy Thyroid: Thyroid normal Resp Effort & Inspection: normal respiratory effort and able to speak in complete sentences Auscultation: clear to auscultation bilaterally Cardio Rate: regular rate Rhythm: regular rhythm Heart sounds: Normal, physiologic split S2 sound present Peripheral pulses: radial pulses present and posterior tibial pulses present GI Inspection: No distended and No Abdominal panniculus present Palpation (GI): Soft to palpation, nontender, no guarding, not rigid and No hepatosplenomegaly present Percussion: Yes normal to percussion Auscultation: normal bowel sounds Rectal Exam - Female: deferred Skin General skin exam: no rashes or lesions noted, turgor normal, skin not dry, no jaundice, No spider nevi and no striae Rashes: no rashes Nails: normal Neuro General: oriented to person, oriented to place and oriented to time Cranial nerves: Yes Equal, round and reactive pupils present and Yes Normal hearing present Speech: No Abnormal speech present Extrem General: Yes normal to inspection, No clubbing, No cyanosis and No edema Psych Appearance: grossly normal and well kempt Mental Status: mental status grossly normal Speech and movement: Normal speech and movement present Affect: normal affect Attitude: cooperative Thought process: Normal thought process present and not confabulating Thought content: Normal thought content present Insight: Limited insight present (Psych) Judgement: Limited judgement present (Psych) Results Reviewed Results Reviewed: Laboratory Tests 03/01/23 11:58 Stool Calprotectin 8 GASTRIC EMPTYING STUDY 03/28/23 IMPRESSION: Normal 4-hour solid food gastric emptying study. EGD/COLONOSCOPY 05/19/23 Findings: Larynx: Normal Esophagus: GE junction at 35 cms. No esophagitis or Hart's. Stomach: Focal erythema and edema over at gastric fold in the gastric body along the greater curve - Mild gastric antral erythema. Biopsies were obtained. Grade 2 flap valve on retroflexed examination of the cardia. Duodenum: Normal bulb and descending duodenum Findings: Terminal Ileum: Distal 4-5 cms was examined and appeared normal. Random biopsies were obtained Cecum: Normal Ascending Colon: Normal Transverse Colon: Normal Descending Colon: Friable appearing mucosa with patchy in the left colon - random biopsies were obtained Sigmoid Colon: Moderate diverticulosis Rectum: Normal Ano-rectum: Normal Colon preparation: Good in the left colon after copious irrigation and Fair with adherent stools in the right and transverse colon Impression and Post Procedure Diagnosis: Endoscopy Findings: LARYNX: [] ESOPHAGUS: [] STOMACH: [] DUODENUM: [] Colonoscopy Findings: No polyps were detected Friable appearing mucosa with patchy in the left colon - random biopsies were obtained Moderate diverticulosis seen in the sigmoid colon Plan: Await pathology results Patient has an appointment on 05/23/23 in the GI Clinic with Yanira Santos NP . Repeat Colonoscopy interval based on path results - in 10 years if biopsies are normal. EGD/colonoscopy BIOPSY Pending at the time of this note Assessment & Plan Assessment & Plan (1) GERD (gastroesophageal reflux disease): Code(s): K21.9 - Gastro-esophageal reflux disease without esophagitis (2) Irritable bowel syndrome with diarrhea: Code(s): K58.0 - Irritable bowel syndrome with diarrhea (3) C. difficile colitis: Code(s): A04.72 - Enterocolitis due to Clostridium difficile, not specified as recurrent (4) Right sided abdominal pain: Code(s): R10.9 - Unspecified abdominal pain (5) Family history of colon cancer: Comment: maternal aunt and mother polyps Code(s): Z80.0 - Family history of malignant neoplasm of digestive organs (6) Weight loss, abnormal: Code(s): R63.4 - Abnormal weight loss Plan EGD/colonoscopy BIOPSY Pending at the time of this note TODAY'S VISIT PAPUA [place] #[id number], Kashif She tolerated the procedures well. I made her aware that the fecal calprotectin was normal, and that the biopsy for the colonoscopy is not back yet. She is having terrible trouble reaching the office via phone, she says she has left over 10 messages. She says that one of the medicines I gave her caused more diarrhea, this is likely the reglan, and given the normal GES will stop this medicine. It also did not help the N/V. She did receive the higher dose of the imipramine and is tolerating it, but hard to evaluate given the s/e of the reglan. For now no other medication changes, ROV 2 weeks to go over biopsy and if I can not find a treatable GI pathology, get second opinion from MD and also consider if N/V metabolic, neurologic, psychogenic or even occult cancer. Despite not having the biopsies the negative stool calprotectin seems to argue against inflammatory bowel disease as an etiology. Again, today, she has had a normal HIDA scan, several unremarkable CT scans of the abdomen and pelvis, a normal gastric emptying study, and a relatively benign EGD/colonoscopy. She again is asking about IV feedings and vitamins, but I explain that this is not a practical outpatient solution; gian without a known pathology. ROV 2 weeks. Coding Level of Care Code Est Pt Level 3 (53856) Diagnoses GERD (gastroesophageal reflux disease) K21.9 Irritable bowel syndrome with diarrhea K58.0 C. difficile colitis A04.72 Right sided abdominal pain R10.9 Family history of colon cancer Z80.0 Weight loss, abnormal R63.4
== END 2023-05-23 12:25 | disposition home or self-care (01) ==
PROVIDERS: PCP General Practice; Visit Provider Nurse Practitioner
DX: K21.9 Gastro-esophageal reflux disease without esophagitis (principal); K58.0 Irritable bowel syndrome with diarrhea; A04.72 Enterocolitis due to Clostridium difficile, not specified as recurrent; R10.9 Unspecified abdominal pain; Z80.0 Family history of malignant neoplasm of digestive organs; R63.4 Abnormal weight loss
CPT/HCPCS: 99213

== ENCOUNTER → 2023-05-23 11:16 | Outpatient (BNVA) | payer MEDICAID, SELFPAY | PROVIDERS: PCP General Practice; Visit Provider Nurse Practitioner | DX: K21.9 Gastro-esophageal reflux disease without esophagitis (principal); K58.0 Irritable bowel syndrome with diarrhea; A04.72 Enterocolitis due to Clostridium difficile, not specified as recurrent; R10.9 Unspecified abdominal pain; R63.4 Abnormal weight loss; Z80.0 Family history of malignant neoplasm of digestive organs | CPT/HCPCS: 99212 ==

== ENCOUNTER 2023-05-29 10:04 | Outpatient (AMB) | payer MEDICAID, SELFPAY ==
--- NOTE | 2023-05-29 10:21 | A.OFFVIS_ITS ---
Intake Vital Signs 05/29/23 10:22 Height 5 ft 7 in Weight 118 lb BMI 18.5 BP 110/64 Intake Visit Reasons: spotting w/IUD/PCP referral Intake Note: Has had some spotting with IUD and having pelvic pain Inside Sales Administrator Required: Yes Inside Sales Administrator Language: Swedish Information Interpreted: non-clinical & clinical Tank Erector: Tank Erector Present (Aidyn) Accompanied by: Daughter Allergies cephalexin [From Keflex] Allergy (Intermediate, Verified 05/29/23 10:24) Eye Swelling morphine Allergy (Intermediate, Verified 05/29/23 10:24) Itching shellfish derived [SHELLFISH DERIVED] Allergy (Intermediate, Verified 05/29/23 10:24) swelling Medication List - Last Reconciled 05/29/23 by Lindsey Zuñiga CNM albuterol sulfate 2.5 mg inhalation Q4-6H calcium carbonate (Antacid Extra Strength (calcium carb)) 1 - 2 tabs PO DIRECTED cholecalciferol (vitamin D3) 50 mcg PO QAM clonazepam 1 mg PO TID PRN dicyclomine 40 mg (2 x 20 mg) PO QID 30 days diphenhydramine HCl (Banophen) 25 - 50 mg PO BEDTIME PRN duloxetine 20 mg PO QAM famotidine 20 mg PO QPM fluoxetine 40 mg PO QAM fluticasone propionate 50 mcg/actuation 2 sprays intranasal DAILY fluticasone propionate 220 mcg/actuation (Flovent HFA) 1 puff inhalation BID hydrocortisone 2.5% (Proctosol HC) 1 appl DC BID PRN ibuprofen 800 mg PO Q8H PRN imipramine HCl 50 mg PO BEDTIME Lactobacillus acidoph-L.bulgar 1 million cell 1 tab PO QAM levonorgestrel (Mirena) intrauterine loperamide (Imodium A-D) 4 mg (2 x 2 mg) PO TID 30 days loratadine (Allergy Relief (loratadine)) 10 mg PO DAILY magnesium hydroxide (Milk of Magnesia) 5 mL PO BEDTIME metoclopramide HCl (Reglan) 10 mg PO QIDACHS montelukast 10 mg PO QPM multivit-iron sulf-folic acid 15 mg iron- 400 mcg (Tab-A-Kisha Multivitamin w- iron) 1 tab PO QAM ondansetron 4 mg PO BID-TID ondansetron HCl 8 mg PO TID pantoprazole 40 mg PO BID PNV,calcium [id number] acid 27 mg iron- 1 mg ( Vitamins Plus Low Iron) 1 tab PO QAM quetiapine 300 mg PO BEDTIME quetiapine 100 mg PO BID PRN riboflavin (vitamin B2) (Vitamin B-2) 400 mg PO DAILY ropinirole 4 mg PO BEDTIME sennosides (senna) 17.2 mg (2 x 8.6 mg) PO BEDTIME 30 days topiramate 25 mg PO BEDTIME Post menopausal: No HPI spotting w/IUD/PCP referral HPI Details Patient is here for problem visit she says she is been bleeding here and there it just comes and goes of its own accord she has not keeping track of it at all she had no idea when the IUD was inserted I found in [facility] records that she had it inserted by Dr. Cai for problematic bleeding 06/08/2017. She is also concerned about abdominal pain that comes and goes she sees Gastroenterology and primary care and has multiple appointments and has had multiple appointments. She is wondering if the IUD is turned her something she had no idea when it was inserted as above. She has not keeping track of the bleeding. She also wants a test she has had her tubes tied so she does not think she could be because of that but she is concerned .she is here with her teenage daughter [facility] Medical History Asthma GERD (gastroesophageal reflux disease) Bipolar disorder Anxiety and depression Constipation Diarrhea Surgical History History of esophagogastroduodenoscopy (EGD) H/O colonoscopy History of tubal ligation History of section Family History (Updated 05/29/23 @ 10:31 by AVINASH Carpenter) Family/Other Cancer Social History Alcohol intake: never Patient Tobacco Use Status: Former Tobacco user Tobacco use type: Cigarette Substance Use Type: Marijuana Female Reproductive History Menstrual Age of Menarche: 17 control method: progestin IUCD and other (tubal ligation) Total pregnancies: 2 Full term: 2 Number of Living Children: 2 Date of last pap smear: 10/25/19 (negative) Physical Exam Vital Signs: Last Vital Signs BP 110/64 05/29/23 10:22 BMI result Body Mass Index 18.5 Other: Multiparous cervix pink smooth with normal appearing discharge and Mirena strings visible in os uterus small firm mobile anteverted nontender good tone adnexa nontender. External Female Exam: normal external appearance Speculum Exam - Vagina: normal appearance of the vagina and normal vaginal discharge Speculum Exam - Cervix: normal appearance of the cervix Bimanual exam- vagina & uterus: normal bimanual exam, uterine size normal, consistency normal, uterine mobility normal, uterine shape normal and non-tender Bimanual Exam- Adnexa, other: normal adnexae, no masses and No adnexal tenderness Assessment & Plan Assessment & Plan (1) Weight loss, abnormal: Code(s): R63.4 - Abnormal weight loss (2) Abdominal pain: Code(s): R10.9 - Unspecified abdominal pain (3) Presence of 52 mg levonorgestrel-releasing intrauterine device (IUD): Comment: inserted 06/08/17 by GL. Code(s): Z97.5 - Presence of (intrauterine) contraceptive device (4) C. difficile colitis: Comment: Has had it multiple times per patient. Discussed probiotics. Code(s): A04.72 - Enterocolitis due to Clostridium difficile, not specified as recurrent Plan The IUD appears to be in fine position will obtain ultrasound to verify this. Discussed that because she had it placed to deal with abnormal bleeding or dysfunctional bleeding for her it might be able to be replaced anyway as it is now 5 years or 5 years coming up. She will be due for a Pap smear and annual exam so we will see her for that and review the ultrasound at that and make a plan about her Mirena IUD whether not it needs to be replaced. Also in terms of her gastrointestinal problems and her GI discomfort and history of recurrent C diff I recommend considering probiotics such as may be available in [facility] test is negative . Coding Level of Care Code New Pt Level 4 (13364) Diagnoses Weight loss, abnormal R63.4 Abdominal pain R10.9 Presence of 52 mg levonorgestrel-releasing intrauterine device (IUD) Z97.5 C. difficile colitis A04.72
[2023-05-29 10:22] VITALS: BP 110/64; BMI 18.5
== END 2023-05-29 11:17 | disposition home or self-care (01) ==
LOC: HO.HWSM 10:04
PROVIDERS: PCP General Practice; Visit Provider Advanced Practice Midwife
DX: R63.4 Abnormal weight loss (principal); R10.9 Unspecified abdominal pain; Z97.5 Presence of (intrauterine) contraceptive device; A04.72 Enterocolitis due to Clostridium difficile, not specified as recurrent
CPT/HCPCS: 99204

== ENCOUNTER 2023-05-29 10:04 | Outpatient (REF) | payer MEDICAID, SELFPAY ==
[2023-05-30 11:34] LABS: CT PCR NOT DETECTED (Not Detect.); NG PCR NOT DETECTED (Not Detect.)
[2023-05-30 12:47] LABS: BV Int Neg Control Negative (Negative); BV Int Pos Control Positive (Positive)
== END 2023-05-29 10:05 | disposition home or self-care (01) ==
LOC: HO.LNP 10:04
PROVIDERS: PCP General Practice; Visit Provider Advanced Practice Midwife
DX: R10.9 Unspecified abdominal pain (principal); R63.4 Abnormal weight loss; A04.72 Enterocolitis due to Clostridium difficile, not specified as recurrent; Z97.5 Presence of (intrauterine) contraceptive device
CPT/HCPCS: 0353U; 87480; 87510; 87660; 99212

== ENCOUNTER 2023-06-29 08:27 | Outpatient (AMB) | payer MEDICAID, SELFPAY ==
--- NOTE | 2023-06-29 08:40 | MHC.OFFVIS ---
Intake Vital Signs 06/29/23 08:43 Height 5 ft 7 in Weight 124 lb 1.924 oz BMI 19.4 BP 122/74 Blood Pressure Location Rt brachial Position Sitting Pulse 94 Pulse Source Pulse Oximeter Pulse Oximetry (%) 97 Oxygen Delivery Method Room Air Intake Visit Reasons: + JUANITO/LVM Intake Note: New pt presents today for +JUANITO consult. C/o chronic pain multiple areas. States there are days where she can not walk or use her hands because of pain Has tried Tramadol but states PCP won't prescribe it. Also tried gabapentin Hand Zipper Trimmer Required: Yes Hand Zipper Trimmer Name: Nahomi De La Paz # [id number] Information Interpreted: clinical only Accompanied by: Self / Same As Patient Allergies cephalexin [From Keflex] Allergy (Intermediate, Verified 06/29/23 08:45) Eye Swelling morphine Allergy (Intermediate, Verified 06/29/23 08:45) Itching shellfish derived [SHELLFISH DERIVED] Allergy (Intermediate, Verified 06/29/23 08:45) swelling Medication List - Last Reconciled 06/29/23 by Art Wilson MD albuterol sulfate 2.5 mg inhalation Q4-6H calcium carbonate (Antacid Extra Strength (calcium carb)) 1 - 2 tabs PO DIRECTED cholecalciferol (vitamin D3) 50 mcg PO QAM clonazepam 1 mg PO TID PRN dicyclomine 40 mg (2 x 20 mg) PO QID 30 days diphenhydramine HCl (Banophen) 25 - 50 mg PO BEDTIME PRN duloxetine 20 mg PO QAM famotidine 20 mg PO QPM fluoxetine 40 mg PO QAM fluticasone propionate 50 mcg/actuation 2 sprays intranasal DAILY fluticasone propionate 220 mcg/actuation (Flovent HFA) 1 puff inhalation BID hydrocortisone 2.5% (Proctosol HC) 1 appl [place] BID PRN ibuprofen 800 mg PO Q8H PRN imipramine HCl 50 mg PO BEDTIME Lactobacillus acidoph-L.bulgar 1 million cell 1 tab PO QAM levonorgestrel (Mirena) intrauterine loperamide (Imodium A-D) 4 mg (2 x 2 mg) PO TID 30 days loratadine (Allergy Relief (loratadine)) 10 mg PO DAILY magnesium hydroxide (Milk of Magnesia) 5 mL PO BEDTIME metoclopramide HCl (Reglan) 10 mg PO QIDACHS mometasone 200 mcg/actuation (Asmanex HFA) 1 puff inhalation BID montelukast 10 mg PO QPM multivit-iron sulf-folic acid 15 mg iron- 400 mcg (Tab-A-Kisha Multivitamin w-iron) 1 tab PO QAM ondansetron 4 mg PO BID-TID ondansetron HCl 8 mg PO TID pantoprazole 40 mg PO BID PNV,calcium 40-[id number]-cgdle acid 27 mg iron- 1 mg ( Vitamins Plus Low Iron) 1 tab PO QAM quetiapine 300 mg PO BEDTIME quetiapine 100 mg PO BID PRN riboflavin (vitamin B2) (Vitamin B-2) 400 mg PO DAILY ropinirole 4 mg PO BEDTIME sennosides (senna) 17.2 mg (2 x 8.6 mg) PO BEDTIME 30 days topiramate 25 mg PO BEDTIME HPI HPI Comments History of Present Illness Details 42-year-old female presents for evaluation of a positive JUANITO. Fortunately, records are not available to me. Patient states that she has been having diffuse pain everywhere, her hands, her knee is, she also has cramping of her muscles. Patient denies any history of DVT/PE. She had 2 pregnancies and 2 children. No abortions or miscarriages. [facility] Medical History Asthma GERD (gastroesophageal reflux disease) Bipolar disorder Anxiety and depression Constipation Diarrhea Surgical History History of esophagogastroduodenoscopy (EGD) H/O colonoscopy History of tubal ligation History of section Family History Family/Other Cancer Other Family history of arthritis Social History Alcohol intake: never Patient Tobacco Use Status: Former Tobacco user Tobacco use type: Cigarette Substance Use Type: Marijuana Female Reproductive History Menstrual Age of Menarche: 17 Total pregnancies: 2 Number of Living Children: 2 Ab induced: 0 Ab spontaneous: 0 Review of Systems Const Reports fatigue and Reports weakness Eyes Reports blurry vision and Reports itchy eyes ENT Reports dysphagia, Reports hoarseness and Reports epistaxis GI Reports dysphagia, Reports heartburn, Reports diarrhea and Reports nausea Reports dysuria Musc Reports arthralgias and Reports muscle weakness Skin/Breast Reports alopecia Neuro Reports weakness Psych Reports anxiety, Reports depression and Reports irritability Endo Reports fatigue and Reports polydipsia Aller/Immun Reports itchy eyes Physical Exam Vital Signs: Last Vital Signs Pulse 94 06/29/23 08:43 BP 122/74 06/29/23 08:43 Pulse Ox 97 06/29/23 08:43 Oxygen Delivery Method Room Air 06/29/23 08:43 BMI result Body Mass Index 19.4 Const General: cooperative and healthy appearing; No comfortable Nutritional Appearance: average body habitus Orientation/consciousness: patient oriented x3 Limitations: no limitations HEENT Head: Yes normocephalic and Yes atraumatic Mouth: moist mucous membranes Resp Effort & Inspection: normal respiratory effort and able to speak in complete sentences Auscultation: clear to auscultation bilaterally Cardio Rate: regular rate Rhythm: regular rhythm Skin General skin exam: no rashes or lesions noted Neuro General: patient oriented x3 Extrem Other: Multiple fibromyalgia tender points Multiple tender PIP is, the DIPs, MCPs bilaterally Tenderness on the radial aspect of the left wrist With pain with any range of motion of left thumb Could not tolerate Wil's test Assessment & Plan Assessment & Plan (1) JUANITO positive: Code(s): R76.8 - Other specified abnormal immunological findings in serum Plan: 42-year-old female is referred for evaluation of a positive JUANITO in the setting of diffuse pain. Records are not available to me. Will order comprehensive serology to screen for underlying autoimmune rheumatic disease. Follow-up in about 4 weeks Plan I spent 46 minutes reviewing patient's chart, evaluating patient, ordering diagnostic workup, counseling patient and documenting in the chart Orders: Orders JUANITO Reflex Titer and Pattern Today M32.9 - Systemic lupus erythematosus, unspecified Anti Extractable Nuclear Ag Today M32.9 - Systemic lupus erythematosus, unspecified Complement C3 Today M32.9 - Systemic lupus erythematosus, unspecified Complement C4 Today M32.9 - Systemic lupus erythematosus, unspecified C Reactive Protein Today M32.9 - Systemic lupus erythematosus, unspecified Protein Creatinine Ratio, Ur Today M32.9 - Systemic lupus erythematosus, unspecified Sjogren's Antibodies Today M32.9 - Systemic lupus erythematosus, unspecified UA w Microscopic Today M32.9 - Systemic lupus erythematosus, unspecified Complete Blood Count Auto Diff Today M32.9 - Systemic lupus erythematosus, unspecified Comprehensive Met. Panel Today M32.9 - Systemic lupus erythematosus, unspecified Immunofixation Pnl, Serum Today M32.9 - Systemic lupus erythematosus, unspecified Protein Electrophoresis, Serum Today M32.9 - Systemic lupus erythematosus, unspecified Rheumatoid Factor Today M25.50 - Pain in unspecified joint Anti DNA DS Antibody Today M32.9 - Systemic lupus erythematosus, unspecified DNA Double Stranded-Crithidia Today M32.9 - Systemic lupus erythematosus, unspecified Erythrocyte Sedimentation Rate Today M32.9 - Systemic lupus erythematosus, unspecified Hepatitis A,B,C Profile Today Z11.59 - Encounter for screening for other viral diseases Cyclic Citrullinated Peptide Today M25.50 - Pain in unspecified joint Coding Level of Care Code New Pt Level 4 (54512) Diagnoses JUANITO positive R76.8
[2023-06-29 08:43] VITALS: BP 122/74; PULSE 94; O2SAT 97; BMI 19.4
== END 2023-06-29 09:23 | disposition home or self-care (01) ==
PROVIDERS: PCP General Practice; Referring Provider General Practice; Visit Provider Student in an Organized Health Care Education/Training Program
DX: R76.8 Other specified abnormal immunological findings in serum (principal)
CPT/HCPCS: 99204

== ENCOUNTER 2023-06-29 08:27 | Outpatient (REF) | payer MEDICAID, SELFPAY ==
[2023-06-29 09:51] LABS: MANUAL DIFF FLAG NO
[2023-06-29 11:04] LABS: Appearance Urine Turbid; Color Urine Dark Yellow; Glucose Urine UA Negative (Negative); Leukocyte Esterase Urine Trace (Negative); Nitrite Urine Negative (Negative); PH 5.5 (5.0-9.0); Specific Gravity - Urine >= 1.030 (1.005-1.025); UMIC TRIGGER UA YES; Urine Blood Negative (Negative); Urine Ketones Trace mg/dL (Negative); Urine Protein 30 (1+) mg/dL (Neg-Trace)
[2023-06-29 11:04] LABS: Basophils Percent Auto 0.7 % (0-2); Eosinophils Percent Auto 0.2 % (0-4); Hematocrit 37.6 % (37.0-47.0); Hemoglobin 12.8 g/dl (12.0-16.0); Imm Gran Abs Auto 0.01 X10*3/uL (0.00-0.03); Imm Gran Pct Auto 0.2 % (0.0-0.4); Lymphocytes Absolute Auto 3.2 X10*3/uL (1.2-4.9); Lymphocytes Percent Auto 53.6 % (20-40); Mean Platelet Volume 9.8 fL (9.4-12.3); Monocytes Absolute Auto 0.5 X10*3/uL (0.1-1.2); Monocytes Percent Auto 8.3 % (2-11); Neutrophils Absolute Auto 2.2 x10*3/uL (2.0-8.3); Platelet Count 300 X10*3/uL (160-400); Red Blood Count 4.13 X10*6/uL (4.20-5.50); White Blood Count 5.9 X10*3/uL (4.8-10.8)
[2023-06-29 11:19] LABS: Bacteria Urine 4+ (None Seen); Hyaline Casts Urine 0-2 /LPF (0-2); RBC Urine 0-2 /HPF (0-2); Squamous Epithelial Cell Urine >20 /HPF (0-2)
[2023-06-29 11:37] LABS: Rheumatoid Factor 25.9 IU/mL (<15.0)
[2023-06-29 11:40] LABS: Protein/Creatinine Ratio, Ur 0.07 (<0.2); Total Protein Urine Random 27 mg/dL (<12)
[2023-06-29 11:54] LABS: Alanine Aminotransferase 14 U/L (0-31); Albumin Level 4.4 g/dL (3.5-5.0); Alkaline Phosphatase 64 U/L (39-117); Anion Gap 13 (12-20); Aspartate Amino Transferase 17 U/L (5-31); Bilirubin Total 0.7 mg/dL (0.0-1.0); Blood Urea Nitrogen 12 mg/dL (9-16); C Reactive Protein < 0.10 mg/dL (< or = 0.50); Calcium 9.2 mg/dL (8.4-10.2); Carbon Dioxide 24 mmol/L (22-29); Chloride 105 mmol/L (96-108); Estimated Glomerular Filt Rate > 60; Glucose Random 79 mg/dL (60-115); Potassium 3.6 mmol/L (3.3-5.1); Sodium 138 mmol/L (135-145); Total Protein 7.5 g/dL (6.5-8.0)
[2023-06-29 12:17] LABS: Erythrocyte Sedimentation Rate 11 MM/HR (0-20)
[2023-06-30 04:20] LABS: HBS Num1 364.41 mIU/mL (0-7.99); HBc Num1 0.15 S/CO (0.00-0.79); HBsAGNum1 0.32 S/CO (0.00-0.99); Hepatitis A Antibody IgM 0.23 Index (0-0.79); Hepatitis B Core Antibody Nonreactive (Nonreactive); Hepatitis B Surface Antigen Negative (Negative); ~HepC Num1 0.27 S/CO (0.00-0.79); ~Hepatitis A Antibody IgM Nonreactive (Nonreactive); ~Hepatitis B Surface Antibody REACTIVE (Nonreactive); ~Hepatitis C Antibody Nonreactive (Nonreactive)
[2023-06-30 15:38] LABS: Cyclic Citrullinated Peptide <16 UNITS
[2023-06-30 19:32] LABS: Anti DNA DS Antibody <1 IU/mL; Antibody to SS-A Antigen <1.0 NEG AI (<1.0 NEG); Antibody to SS-B Antigen <1.0 NEG AI (<1.0 NEG); SM/Ribonucleoprotein Ab <1.0 NEG AI (<1.0 NEG); Smith Protein <1.0 NEG AI (<1.0 NEG)
[2023-06-30 22:23] LABS: Prot Elec - Albumin 4.4 g/dL (3.8-4.8); Prot Elec - Alpha1 0.3 g/dL (0.2-0.3); Prot Elec - Alpha2 0.7 g/dL (0.5-0.9); Prot Elec - Beta 1 0.4 g/dL (0.4-0.6); Prot Elec - Beta 2 0.4 g/dL (0.2-0.5); Prot Elec - Total Protein 7.2 g/dL (6.1-8.1)
[2023-07-01 23:23] LABS: Complement C3 100 mg/dL (83-193)
[2023-07-03 12:59] LABS: Anti Nuclear Antibody Pattern Nuclear, Speckled; Anti Nuclear Antibody Screen POSITIVE (NEGATIVE)
[2023-07-03 17:04] LABS: IgA 286 mg/dL (47-310); IgG 1153 mg/dL (600-1640); IgM 178 mg/dL (50-300)
[2023-07-05 14:54] LABS: DNAds, Crithidia Antibody Negative (Negative)
== END 2023-06-29 08:28 | disposition home or self-care (01) ==
LOC: HO.LAB 08:27
PROVIDERS: PCP General Practice; Visit Provider Student in an Organized Health Care Education/Training Program
DX: Z11.59 Encounter for screening for other viral diseases (principal); M32.9 Systemic lupus erythematosus, unspecified; M25.50 Pain in unspecified joint; R76.8 Other specified abnormal immunological findings in serum
CPT/HCPCS: 36415; 80053; 81001; 82570; 82784; 84156; 84165; 85025; 85652; 86038; 86039; 86140; 86160; 86200; 86225; 86235; 86255; 86334; 86431; 86704; 86706; 86709; 86803; 87340; 99202

== ENCOUNTER 2023-07-06 10:14 | Outpatient (REF) | payer MEDICAID, SELFPAY ==
[2023-07-06 11:57] LABS: Appearance Urine Cloudy; Color Urine Yellow; Glucose Urine UA Negative (Negative); Leukocyte Esterase Urine Negative (Negative); Nitrite Urine Negative (Negative); PH 5.5 (5.0-9.0); Specific Gravity - Urine 1.025 (1.005-1.025); Urine Blood Negative (Negative); Urine Ketones Negative (Negative); Urine Protein Negative (Neg-Trace)
== END 2023-07-06 10:15 | disposition home or self-care (01) ==
LOC: HO.HHCL 10:14
PROVIDERS: Visit Provider Nurse Practitioner
DX: R10.9 Unspecified abdominal pain (principal); R63.4 Abnormal weight loss; R19.7 Diarrhea, unspecified
CPT/HCPCS: 81003

== ENCOUNTER 2023-07-10 13:46 | Outpatient (REF) | payer MEDICAID, SELFPAY ==
[2023-07-10 17:09] LABS: CDiff Gene PCR POSITIVE (Negative)
[2023-07-10 17:46] LABS: CDIFF Internal ctrl Dots and bkg OK (V); CDiff Toxin Negative (Negative)
[2023-07-15 01:34] LABS: Calprotectin, Fecal 12 mcg/g
== END 2023-07-10 13:47 | disposition home or self-care (01) ==
LOC: HO.LAB 13:46
PROVIDERS: PCP General Practice; Visit Provider Nurse Practitioner
DX: A04.72 Enterocolitis due to Clostridium difficile, not specified as recurrent (principal); R19.7 Diarrhea, unspecified
CPT/HCPCS: 83993; 87324; 87493

== ENCOUNTER 2023-07-14 11:45 | Outpatient (REF) | payer MEDICAID, SELFPAY ==
[2023-07-14 15:35] LABS: Adenovirus F 40/41 Not Detected (Not Detect.); Astrovirus Not Detected (Not Detect.); Campylobacter Not Detected (Not Detect.); Cryptosporidium Not Detected (Not Detect.); Cyclospora cayetanensis Not Detected (Not Detect.); E. coli EAEC Not Detected (Not Detect.); E. coli EPEC Not Detected (Not Detect.); E. coli ETEC Not Detected (Not Detect.); E. coli STEC Not Detected (Not Detect.); Entamoeba histolytica Not Detected (Not Detect.); Giardia lamblia Not Detected (Not Detect.); Norovirus GI/GII Not Detected (Not Detect.); Plesiomonas shigelloides Not Detected (Not Detect.); Rotavirus A Not Detected (Not Detect.); Salmonella Not Detected (Not Detect.); Sapovirus Not Detected (Not Detect.); Shigella sp./EIEC Not Detected (Not Detect.); Vibrio Not Detected (Not Detect.); Vibrio Cholerae Not Detected (Not Detect.); Yersinia enterocolitica Not Detected (Not Detect.)
== END 2023-07-14 11:46 | disposition home or self-care (01) ==
LOC: HO.LAB 11:45
PROVIDERS: PCP General Practice; Visit Provider Nurse Practitioner
DX: R19.7 Diarrhea, unspecified (principal)
CPT/HCPCS: 87507

== ENCOUNTER 2023-08-01 11:32 | Outpatient (AMB) | payer MEDICAID, SELFPAY ==
[2023-08-01 11:39] VITALS: BP 128/62; PULSE 74; O2SAT 98; BMI 18.9
--- NOTE | 2023-08-01 11:39 | A.OFFVIS_ITS ---
Vital Signs 08/01/23 11:39 Height 5 ft 7 in Weight 120 lb 13.013 oz BMI 18.9 BP 128/62 Blood Pressure Location Rt brachial Position Sitting Pulse 74 Pulse Source Pulse Oximeter Pulse Oximetry (%) 98 Oxygen Delivery Method Room Air Intake Visit Reasons: JUANITO +ve Intake Note: Patient last seen 06/29/23 presents today for follow up and test results. Lots of joint pain everywhere Stem Crusher Required: Yes Stem Crusher Language: Human Services Supervisor Name: Herb. Daughter. form signed Accompanied by: Daughter Herb Allergies cephalexin [From Keflex] Allergy (Intermediate, Verified 08/01/23 11:46) Eye Swelling morphine Allergy (Intermediate, Verified 08/01/23 11:46) Itching shellfish derived [SHELLFISH DERIVED] Allergy (Intermediate, Verified 08/01/23 11:46) swelling Medication List - Last Reconciled 08/01/23 by Art Wilson MD albuterol sulfate 2.5 mg inhalation Q4-6H calcium carbonate (Antacid Ext Str (calcium carb)) 1 - 2 tabs PO DIRECTED cholecalciferol (vitamin D3) 50 mcg PO QAM clonazepam 1 mg PO TID PRN dicyclomine 40 mg (2 x 20 mg) PO QID 30 days diphenhydramine HCl (Banophen) 25 - 50 mg PO BEDTIME PRN duloxetine 20 mg PO QAM famotidine 20 mg PO QPM fluoxetine 40 mg PO QAM fluticasone propionate 50 mcg/actuation 2 sprays intranasal DAILY fluticasone propionate 220 mcg/actuation (Flovent HFA) 1 puff inhalation BID hydrocortisone 2.5% (Proctosol HC) 1 appl [place] BID PRN ibuprofen 800 mg PO Q8H PRN imipramine HCl 50 mg PO BEDTIME Lactobacillus acidoph-L.bulgar 1 million cell 1 tab PO QAM levonorgestrel (Mirena) intrauterine loperamide 4 mg (2 x 2 mg) PO TID PRN loratadine (Allergy Relief (loratadine)) 10 mg PO DAILY magnesium hydroxide (Milk of Magnesia) 5 mL PO BEDTIME metoclopramide HCl (Reglan) 10 mg PO QIDACHS mometasone 200 mcg/actuation (Asmanex HFA) 1 puff inhalation BID montelukast 10 mg PO QPM multivit-iron sulf-folic acid 15 mg iron- 400 mcg (Tab-A-Kisha Multivitamin w- iron) 1 tab PO QAM ondansetron 4 mg PO BID-TID ondansetron HCl 8 mg PO TID pantoprazole 40 mg PO BID PNV,calcium 09-tbge-pmqra acid 27 mg iron- 1 mg ( Vitamins Plus Low Iron) 1 tab PO QAM quetiapine 300 mg PO BEDTIME quetiapine 100 mg PO BID PRN riboflavin (vitamin B2) (Vitamin B-2) 400 mg PO DAILY ropinirole 4 mg PO BEDTIME sennosides (senna) 17.2 mg (2 x 8.6 mg) PO BEDTIME 30 days topiramate 25 mg PO BEDTIME HPI Comments Details: Patient returns for follow-up after completion of her diagnostic workup. Continues to have use joint pain. Today she is complaining of pain in her left hand, left wrist left knee. Initial history: 42-year-old female presents for evaluation of a positive JUANITO. Unfortunately, records are not available to me. Patient states that she has been having diffuse pain everywhere, her hands, her knee is, she also has cramping of her muscles. Patient denies any history of DVT/PE. She had 2 pregnancies and 2 children. No abortions or miscarriages. [facility]END[facility] SALE TO [facility] Medical History Asthma GERD (gastroesophageal reflux disease) Bipolar disorder Anxiety and depression Constipation Diarrhea Surgical History History of esophagogastroduodenoscopy (EGD) H/O colonoscopy History of tubal ligation History of section Family History Family/Other Cancer Other Family history of arthritis Social History Alcohol intake: never Patient Tobacco Use Status: Former Tobacco user Tobacco use type: Cigarette Substance Use Type: Marijuana Female Reproductive History Menstrual Age of Menarche: 17 Review of Systems Musc Reports arthralgias and Reports muscle weakness Psych Reports anxiety, Reports depression and Reports irritability Physical Exam Vital Signs: Last Vital Signs Pulse 74 08/01/23 11:39 BP 128/62 08/01/23 11:39 Pulse Ox 98 08/01/23 11:39 Oxygen Delivery Method Room Air 08/01/23 11:39 BMI result Body Mass Index 18.9 Const General: cooperative, healthy appearing and anxious; No comfortable Nutritional Appearance: average body habitus Orientation/consciousness: patient oriented x3 Limitations: no limitations HEENT Head: Yes normocephalic and Yes atraumatic Mouth: moist mucous membranes Resp Effort & Inspection: normal respiratory effort and able to speak in complete sentences Auscultation: clear to auscultation bilaterally Cardio Rate: regular rate Rhythm: regular rhythm Skin General skin exam: no rashes or lesions noted Neuro General: patient oriented x3 Extrem Other: Multiple fibromyalgia tender points Right 2nd MCP tenderness Right 2nd PIP tenderness Left 2nd MCP swelling and tenderness Positive Wil's test on the left Assessment & Plan Assessment & Plan (1) JUANITO positive: Code(s): R76.8 - Other specified abnormal immunological findings in serum Category: Medical Plan: 42-year-old female presents for evaluation of diffuse pain. On exam patient has multiple tender joints. He has only once swollen joints. Labs showed low titer positive JUANITO and borderline positive rheumatoid factor. Normal inflammatory markers. Mechanical symptoms versus inflammatory nature. As well as a component of fibromyalgia. Start prednisone therapeutic trial. Follow-up in about 6 weeks Plan I spent 16 minutes reviewing patient's chart, evaluating patient, counseling patient and documenting in the chart Medications: New prednisone Take 3 tabs daily for 1 week, 2 tabs daily for 2 weeks then remain on 1 tab daily 70 tabs 0RF Coding Level of Care Code Est Pt Level 3 (59045) Diagnoses JUANITO positive R76.8
== END 2023-08-01 12:10 | disposition home or self-care (01) ==
PROVIDERS: PCP General Practice; Referring Provider General Practice; Visit Provider Student in an Organized Health Care Education/Training Program
DX: R76.8 Other specified abnormal immunological findings in serum (principal)
CPT/HCPCS: 99213

== ENCOUNTER → 2023-08-01 11:32 | Outpatient (BNVA) | payer MEDICAID, SELFPAY | PROVIDERS: PCP General Practice; Visit Provider Student in an Organized Health Care Education/Training Program | DX: R76.8 Other specified abnormal immunological findings in serum (principal) | CPT/HCPCS: 99212 ==

== ENCOUNTER 2023-08-03 12:31 | Outpatient (AMB) | payer MEDICAID, SELFPAY ==
--- NOTE | 2023-08-03 12:45 | A.OFFVIS_ITS ---
Vital Signs 08/03/23 12:46 Height 5 ft 7 in Weight 118 lb 9.739 oz BMI 18.6 BP 101/62 Blood Pressure Location Lt brachial Position Sitting Pulse 73 Intake Visit Reasons: Follow up labs Intake Note: Kera returns to in office visit today in follow up of labs and abd pain. CC: Patient c/o abdominal pain, lower back pain, nausea, vomiting, and diarrhea. Pt started on Prednisone by prop and effects designer on 08/01/23. Architectural Engineering Teacher Required: Yes Architectural Engineering Teacher Name: daughter Accompanied by: Self / Same As Patient Allergies cephalexin [From Keflex] Allergy (Intermediate, Verified 08/03/23 12:53) Eye Swelling morphine Allergy (Intermediate, Verified 08/03/23 12:53) Itching shellfish derived [SHELLFISH DERIVED] Allergy (Intermediate, Verified 08/03/23 12:53) swelling HPI HPI Follow up labs: Details: Assessment & Plan (1) GERD (gastroesophageal reflux disease): Code(s): K21.9 - Gastro-esophageal reflux disease without esophagitis (2) Irritable bowel syndrome with diarrhea: Code(s): K58.0 - Irritable bowel syndrome with diarrhea (3) C. difficile colitis: Code(s): A04.72 - Enterocolitis due to Clostridium difficile, not specified as recurrent (4) Right sided abdominal pain: Code(s): R10.9 - Unspecified abdominal pain (5) Family history of colon cancer: Comment: maternal aunt and mother polyps Code(s): Z80.0 - Family history of malignant neoplasm of digestive organs (6) Weight loss, abnormal: Code(s): R63.4 - Abnormal weight loss Plan She tolerated the procedures well. I made her aware that the fecal calprotectin was normal, and that the biopsy for the colonoscopy is not back yet. She is having terrible trouble reaching the office via phone, she says she has left over 10 messages. She says that one of the medicines I gave her caused more diarrhea, this is likely the reglan, and given the normal GES will stop this medicine. It also did not help the N/V. She did receive the higher dose of the imipramine and is tolerating it, but hard to evaluate given the s/e of the reglan. For now no other medication changes, ROV 2 weeks to go over biopsy and if I can not find a treatable GI pathology, get second opinion from MD and also consider if N/V metabolic, neurologic, psychogenic or even occult cancer. Despite not having the biopsies the negative stool calprotectin seems to argue against inflammatory bowel disease as an etiology. Again, today, she has had a normal HIDA scan, several unremarkable CT scans of the abdomen and pelvis, a normal gastric emptying study, and a relatively benign EGD/colonoscopy. She again is asking about IV feedings and vitamins, but I explain that this is not a practical outpatient solution; gian without a known pathology. ROV 2 weeks. CORRESPONDENCE On 07/11/23 @ 15:37 Dorothy Navarrete Wrote To Danielle Patient advised to repeat test, she agreed and verbalized understanding. Dorothy Navarrete removed from item. On 07/11/23 @ 09:46 Savana Verma Wrote To Danielle (2) PT needs to do a recollect for the GI panel she filled the specimen cup well above the line and they can not use that, If you can call the patient and let her know and july if you can put in another order? TODAY'S VISIT KITTITIAN #Dtr Kayra translates per pt request. She stopped the 10mg reglan and her diarrhea stopped. She is now having soft stools. She continues on pantoprazole and imipramine and probiotics. However, she is still vomiting with eating now. I think we need to get the balance of reglan and her stooling right, so I want her to take a 1/2 5 mg reglan tid and see if we can find balance. She has an elevated RF. Sees rheum. ? if this also drives wt loss. ROV 3 weeks. [facility] Medical History (Updated 08/03/23 @ 13:08 by BRITTANY Dobson) Diarrhea C. difficile colitis Asthma GERD (gastroesophageal reflux disease) Bipolar disorder Anxiety and depression Constipation Diarrhea Surgical History History of esophagogastroduodenoscopy (EGD) H/O colonoscopy History of tubal ligation History of section Family History Family/Other Cancer Other Family history of arthritis Social History Alcohol intake: never Patient Tobacco Use Status: Former Tobacco user Tobacco use type: Cigarette Substance Use Type: Marijuana Female Reproductive History Menstrual Age of Menarche: 17 Review of Systems Const Denies fatigue, Denies fever(s), Denies night sweats, Denies poor appetite and Denies weight loss ENT Reports Normal hearing present, Denies dental pain, Denies dysphagia, Denies hearing loss, Denies mouth pain, Denies odynophagia, Denies throat swelling, Denies tongue swelling and Reports other (Dentition adequate) Card Reports no additional complaints Resp Reports no additional complaints GI Details: Denies abdominal pain, Denies melena, Denies bloating, Denies hematochezia, Denies constipation, Denies GI cramping, Denies dysphagia, Denies excessive flatus, Denies early satiety, Reports heartburn, Reports diarrhea, Reports nausea, Denies odynophagia, Reports vomiting and Denies hematemesis Skin/Breast Denies pruritus, Denies lesions, Denies rash and Denies jaundice Neuro Reports Normal hearing present and Denies Abnormal speech present Endo Denies fatigue Aller/Immun Denies throat swelling and Denies tongue swelling Physical Exam Vital Signs: Last Vital Signs Pulse 73 08/03/23 12:46 BP 101/62 08/03/23 12:46 BMI result Body Mass Index 18.6 Const General: cooperative, no acute distress, well developed and well groomed Nutritional Appearance: average body habitus and well nourished Orientation/consciousness: oriented to person, oriented to place and oriented to time Limitations: language barrier HEENT Head: Yes normocephalic and Yes atraumatic Eyes General: appearance normal, both eyes and all related structures Pupils: Equal, round and reactive pupils present Neck Neck: Yes normal visual inspection and Yes no lymphadenopathy Thyroid: Thyroid normal Resp Effort & Inspection: normal respiratory effort and able to speak in complete sentences Auscultation: clear to auscultation bilaterally Cardio Rate: regular rate Rhythm: regular rhythm Heart sounds: Normal, physiologic split S2 sound present Peripheral pulses: radial pulses present and posterior tibial pulses present GI Inspection: No distended and No Abdominal panniculus present Palpation (GI): Soft to palpation, nontender, no guarding, not rigid and No hepatosplenomegaly present Percussion: Yes normal to percussion Auscultation: normal bowel sounds Rectal Exam - Female: deferred Skin General skin exam: no rashes or lesions noted, turgor normal, skin not dry, no jaundice, No spider nevi and no striae Rashes: no rashes Nails: normal Neuro General: oriented to person, oriented to place and oriented to time Cranial nerves: Yes Equal, round and reactive pupils present and Yes Normal hearing present Speech: No Abnormal speech present Extrem General: Yes normal to inspection, No clubbing, No cyanosis and No edema Psych Appearance: grossly normal and well kempt Mental Status: mental status grossly normal Speech and movement: Normal speech and movement present Affect: normal affect Attitude: cooperative Thought process: Normal thought process present and not confabulating Thought content: Normal thought content present Insight: Limited insight present (Psych) Judgement: Limited judgement present (Psych) Assessment & Plan Assessment & Plan (1) GERD (gastroesophageal reflux disease): Code(s): K21.9 - Gastro-esophageal reflux disease without esophagitis Category: Medical (2) Irritable bowel syndrome with diarrhea: Code(s): K58.0 - Irritable bowel syndrome with diarrhea Category: Medical (3) Nausea and vomiting: Code(s): R11.2 - Nausea with vomiting, unspecified Category: Medical Plan KITTITIAN #Dtr Herb translates per pt request. She stopped the 10mg reglan and her diarrhea stopped. She is now having soft stools. She continues on pantoprazole and imipramine and probiotics. However, she is still vomiting with eating now. I think we need to get the balance of reglan and her stooling right, so I want her to take a 1/2 5 mg reglan tid and see if we can find balance. She has an elevated RF. Sees rheum. ? if this also drives wt loss. ROV 3 weeks. Medications: New metoclopramide HCl (Reglan) 2.5 mg (1/2 x 5 mg) PO .tidac 45 tabs 6RF 30 days K21.9 - Gastro-esophageal reflux disease without esophagitis, K58.0 - Irritable bowel syndrome with diarrhea, R11.2 - Nausea with vomiting, unspecified Refilled 2 pantoprazole 40 mg PO BID 60 tabs 6RF K21.9 - Gastro-esophageal reflux disease without esophagitis Discontinued ondansetron HCl Discontinued Reason: Doctor's Order 8 mg PO TID 90 tabs 3RF A04.72 - Enterocolitis due to Clostridium difficile, not specified as recurrent, R11.2 - Nausea with vomiting, unspecified sennosides (senna) Discontinued Reason: Doctor's Order 17.2 mg (2 x 8.6 mg) PO BEDTIME 30 days 60 caps 3RF constipation metoclopramide HCl (Reglan) Discontinued Reason: Doctor's Order 10 mg PO QIDACHS 120 tabs 6RF R11.2 - Nausea with vomiting, unspecified Coding Level of Care Code Est Pt Level 3 (97543) Diagnoses GERD (gastroesophageal reflux disease) K21.9 Irritable bowel syndrome with diarrhea K58.0 Nausea and vomiting R11.2
[2023-08-03 12:46] VITALS: BP 101/62; PULSE 73; BMI 18.6
== END 2023-08-03 13:20 | disposition home or self-care (01) ==
PROVIDERS: PCP General Practice; Visit Provider Nurse Practitioner
DX: K21.9 Gastro-esophageal reflux disease without esophagitis (principal); K58.0 Irritable bowel syndrome with diarrhea; R11.2 Nausea with vomiting, unspecified
CPT/HCPCS: 99213

== ENCOUNTER → 2023-08-03 12:31 | Outpatient (BNVA) | payer MEDICAID, SELFPAY | PROVIDERS: PCP General Practice; Visit Provider Nurse Practitioner | DX: K21.9 Gastro-esophageal reflux disease without esophagitis (principal); K58.0 Irritable bowel syndrome with diarrhea; R11.2 Nausea with vomiting, unspecified | CPT/HCPCS: 99212 ==

== ENCOUNTER 2023-09-13 11:01 | Outpatient (AMB) | payer MEDICAID, SELFPAY ==
--- NOTE | 2023-09-13 12:12 | A.OFFVIS_ITS ---
Vital Signs 09/13/23 12:14 Height 5 ft 7 in Weight 127 lb 3.307 oz BMI 19.9 BP 120/68 Blood Pressure Location Rt brachial Position Sitting Pulse 67 Pulse Source Pulse Oximeter Pulse Oximetry (%) 97 Oxygen Delivery Method Room Air Intake Visit Reasons: RA Intake Note: Patient last seen 08/01/23, presents today for RA follow up. Patient reports prednisone did not help her pain. She has severe morning stiffness, bl leg numbing and reports dropping objects more. Retail Sales Lead Required: No Retail Sales Lead Name: Wilder Barajas - form signed Accompanied by: Significant Other Allergies cephalexin [From Keflex] Allergy (Intermediate, Verified 09/13/23 12:25) Eye Swelling morphine Allergy (Intermediate, Verified 09/13/23 12:25) Itching shellfish derived [SHELLFISH DERIVED] Allergy (Intermediate, Verified 09/13/23 12:25) swelling Medication List - Last Reconciled 09/13/23 by Art Wilson MD albuterol sulfate 2.5 mg inhalation Q4-6H calcium carbonate (Antacid Ext Str (calcium carb)) 1 - 2 tabs PO DIRECTED cholecalciferol (vitamin D3) 50 mcg PO QAM clonazepam 1 mg PO TID PRN dicyclomine 40 mg (2 x 20 mg) PO QID 30 days diphenhydramine HCl (Banophen) 25 - 50 mg PO BEDTIME PRN duloxetine 20 mg PO QAM famotidine 20 mg PO QPM fluoxetine 40 mg PO QAM fluticasone propionate 50 mcg/actuation 2 sprays intranasal DAILY fluticasone propionate 220 mcg/actuation (Flovent HFA) 1 puff inhalation BID hydrocortisone 2.5% (Proctosol HC) 1 appl [place] BID PRN ibuprofen 800 mg PO Q8H PRN imipramine HCl 50 mg PO BEDTIME Lactobacillus acidoph-L.bulgar 1 million cell 1 tab PO QAM levonorgestrel (Mirena) intrauterine loperamide 4 mg (2 x 2 mg) PO TID PRN loratadine (Allergy Relief (loratadine)) 10 mg PO DAILY magnesium hydroxide (Milk of Magnesia) 5 mL PO BEDTIME metoclopramide HCl (Reglan) 2.5 mg (1/2 x 5 mg) PO .tidac 30 days mometasone 200 mcg/actuation (Asmanex HFA) 1 puff inhalation BID montelukast 10 mg PO QPM multivit-iron sulf-folic acid 15 mg iron- 400 mcg (Tab-A-Kisha Multivitamin w- iron) 1 tab PO QAM pantoprazole 40 mg PO BID PNV,calcium 09-bhcl-ikvck acid 27 mg iron- 1 mg ( Vitamins Plus Low Iron) 1 tab PO QAM quetiapine 300 mg PO BEDTIME quetiapine 100 mg PO BID PRN riboflavin (vitamin B2) (Vitamin B-2) 400 mg PO DAILY ropinirole 4 mg PO BEDTIME topiramate 25 mg PO BEDTIME HPI Comments Details: Patient returns for follow-up with her boyfriend. She has been taking prednisone as prescribed regularly and she did not feel any improvement. Actually her pain is worse. She just ran out of her prednisone yesterday. Initial history: 42-year-old female presents for evaluation of a positive JUANITO. Unfortunately, records are not available to me. Patient states that she has been having diffuse pain everywhere, her hands, her knee is, she also has cramping of her muscles. Patient denies any history of DVT/PE. She had 2 pregnancies and 2 children. No abortions or miscarriages. [facility] Medical History Diarrhea C. difficile colitis Asthma GERD (gastroesophageal reflux disease) Bipolar disorder Anxiety and depression Constipation Diarrhea Surgical History History of esophagogastroduodenoscopy (EGD) H/O colonoscopy History of tubal ligation History of section Family History Family/Other Cancer Other Family history of arthritis Social History Alcohol intake: never Patient Tobacco Use Status: Former Tobacco user Tobacco use type: Cigarette Substance Use Type: Marijuana Female Reproductive History Menstrual Age of Menarche: 17 Review of Systems Musc Reports arthralgias, Reports muscle weakness and Reports numbness Neuro Reports numbness Psych Reports anxiety, Reports depression and Reports irritability Physical Exam Vital Signs: Last Vital Signs Pulse 67 09/13/23 12:14 BP 120/68 09/13/23 12:14 Pulse Ox 97 09/13/23 12:14 Oxygen Delivery Method Room Air 09/13/23 12:14 BMI result Body Mass Index 19.9 Const General: cooperative, healthy appearing and anxious; No comfortable Nutritional Appearance: average body habitus Orientation/consciousness: patient oriented x3 Limitations: no limitations HEENT Head: Yes normocephalic and Yes atraumatic Resp Effort & Inspection: normal respiratory effort and able to speak in complete sentences Skin General skin exam: no rashes or lesions noted Neuro General: patient oriented x3 Extrem Other: Multiple fibromyalgia tender points No swollen joints today. Multiple tender joints Assessment & Plan Assessment & Plan (1) JUANITO positive: Code(s): R76.8 - Other specified abnormal immunological findings in serum Category: Medical Plan: 42-year-old female presents for evaluation of diffuse pain. Labs showed low ti ter positive JUANITO and borderline positive rheumatoid factor. Negative sub serologies. Normal inflammatory markers. Prednisone therapeutic trial not helpful. Clinical picture consistent with fibromyalgia. Discussed management of fibromyalgia with patient. Is a noninflammatory, non- autoimmune central afferent processing disorder leading to a diffuse pain syndrome. Patient follows up regularly with her psychotherapist twice a week and her psychiatrist. Consider a repeat sleep study. Patient would benefit from increased physical activity, either through formal physical therapy or by joining a gym. Advised patient that she should start activity slowly and increase as tolerated. Consider low-impact exercises such as walking, swimming, aqua therapy stretching, yoga. Patient is already on duloxetine for anxiety/depression Follow-up with PCP Plan I spent 16 minutes reviewing patient's chart, evaluating patient, counseling patient & boyfriend and documenting in the chart Coding Level of Care Code Est Pt Level 3 (37634) Diagnoses JUANITO positive R76.8
[2023-09-13 12:14] VITALS: BP 120/68; PULSE 67; O2SAT 97; BMI 19.9
== END 2023-09-13 12:55 | disposition home or self-care (01) ==
PROVIDERS: PCP General Practice; Visit Provider Student in an Organized Health Care Education/Training Program
DX: R76.8 Other specified abnormal immunological findings in serum (principal)
CPT/HCPCS: 99213

== ENCOUNTER → 2023-09-13 11:01 | Outpatient (BNVA) | payer MEDICAID, SELFPAY | PROVIDERS: PCP General Practice; Visit Provider Student in an Organized Health Care Education/Training Program | DX: R76.8 Other specified abnormal immunological findings in serum (principal) | CPT/HCPCS: 99212 ==

== ENCOUNTER 2023-09-19 12:04 | Outpatient (REF) | payer MEDICAID, SELFPAY ==
[2023-09-19 13:49] LABS: Hematocrit 41.6 % (37.0-47.0); Hemoglobin 14.2 g/dl (12.0-16.0); Mean Corpuscular HGB Conc 34.1 g/dl (31.0-35.0); Mean Corpuscular Hemoglobin 31.6 pg (27.0-33.0); Mean Corpuscular Volume 92.4 fL (80.0-98.0); PLT CLUMP 1; Red Cell Distribution Width 13.1 % (11.0-16.0)
[2023-09-19 13:55] LABS: Mean Platelet Volume 10.9 fL (9.4-12.3); Platelet Count 248 X10*3/uL (160-400); White Blood Count 10.2 X10*3/uL (4.8-10.8)
[2023-09-19 13:57] LABS: Alanine Aminotransferase 31 U/L (0-31); Albumin Level 4.3 g/dL (3.5-5.0); Alkaline Phosphatase 52 U/L (39-117); Anion Gap 13 (12-20); Aspartate Amino Transferase 21 U/L (5-31); Bilirubin Total 0.4 mg/dL (0.0-1.0); Blood Urea Nitrogen 14 mg/dL (9-16); Carbon Dioxide 25 mmol/L (22-29); Chloride 105 mmol/L (96-108); Cholesterol 213 mg/dL (<200); Estimated Glomerular Filt Rate > 60; Glucose Random 76 mg/dL (60-115); HDL Cholesterol 79 mg/dL (>40); Iron 81 mcg/dL (30-160); LDL Cholesterol Calculated 117 mg/dL (<100); Percent Iron Saturation 26 % (15-50); Potassium 4.3 mmol/L (3.3-5.1); Sodium 139 mmol/L (135-145); Total Iron Binding Capacity 311 mcg/dL (228-428); Total Protein 7.6 g/dL (6.5-8.0); Triglycerides 86 mg/dL (<150); Unsaturated Iron Binding 230 ug/dL
[2023-09-19 14:03] LABS: Estimated Average Glucose 94 mg/dL; Hemoglobin A1c % 4.9 % (<6.0)
[2023-09-19 14:16] LABS: Ferritin 94 ng/mL (10-250); TSH reflex Free T4 0.62 uIU/mL (0.32-4.0)
[2023-09-19 15:06] LABS: CT PCR NOT DETECTED (Not Detect.); NG PCR NOT DETECTED (Not Detect.)
[2023-09-20 03:59] LABS: Syphilis Screen Nonreactive (Nonreactive)
[2023-09-20 04:37] LABS: HBc Num1 0.15 S/CO (0.00-0.79); HBsAGNum1 0.36 S/CO (0.00-0.99); HIV AB/AG Nonreactive (Nonreactive); HIV Num 1 0.08 S/CO (0.00-0.99); Hepatitis B Core Antibody Nonreactive (Nonreactive); Hepatitis B Surface Antigen Negative (Negative); ~Hepatitis B Surface Antibody REACTIVE (Nonreactive); ~Hepatitis C Antibody Nonreactive (Nonreactive)
== END 2023-09-19 12:05 | disposition home or self-care (01) ==
LOC: HO.HHCL 12:04
PROVIDERS: Visit Provider Student in an Organized Health Care Education/Training Program
DX: Z00.00 Encounter for general adult medical examination without abnormal findings (principal)
CPT/HCPCS: 0353U; 36415; 80053; 80061; 82728; 83036; 83540; 84443; 85027; 86704; 86706; 86780; 86803; 87340; 87389

== ENCOUNTER 2023-09-28 11:46 | Outpatient (REF) | payer MEDICAID, SELFPAY ==
--- NOTE | ~2023-09-28 | MM_ITS ---
EXAMINATION: MM SCREENING DIGITAL BREAST TOMOSYNTHESIS, BILATERAL CLINICAL INFORMATION: Screening. Asymptomatic. COMPARISON: Mammography: This is a baseline mammogram. TECHNIQUE: Digital breast tomosynthesis is performed in both the craniocaudal and mediolateral oblique views along with computer-aided detection (CAD). Synthesized 2D images are generated from the tomosynthesis. FINDINGS: The breasts are extremely dense, which lowers the sensitivity of mammography (ACR BI-RADS breast composition Category d). There are no significant masses, abnormal calcifications, or other abnormalities. MM/MM tomosynthesis screening BI IMPRESSION: No mammographic evidence of malignancy. ASSESSMENT: BI-RADS BI-RADS 1 - Negative RECOMMENDATION: Routine annual mammography screening. 1 year F/U This examination should not preclude the clinical evaluation of a suspicious palpable abnormality. This patient's information was entered into a reminder system with a target due date for their next mammogram.
== END 2023-09-28 11:47 | disposition home or self-care (01) ==
LOC: HO.MAMMO 11:46
PROVIDERS: PCP General Practice; Visit Provider General Practice
DX: Z12.31 Encounter for screening mammogram for malignant neoplasm of breast (principal)
CPT/HCPCS: 77063; 77067

== ENCOUNTER → 2023-09-28 12:00 | Outpatient (BNV) | payer MEDICAID, SELFPAY | PROVIDERS: PCP General Practice; Visit Provider Radiology Diagnostic Radiology | DX: Z12.31 Encounter for screening mammogram for malignant neoplasm of breast (principal) | CPT/HCPCS: 77063; 77067 ==

== ENCOUNTER 2023-11-29 11:33 | Outpatient (AMB) | payer MEDICAID, SELFPAY ==
--- NOTE | 2023-11-29 11:37 | A.OFFVIS_ITS ---
Vital Signs 11/29/23 11:45 Height 5 ft 7 in Weight 130 lb 15.273 oz BMI 20.5 BP 90/57 L Blood Pressure Location Lt brachial Position Sitting Pulse 76 Intake Visit Reasons: r/s follow up from 08/23 Intake Note: Patient in office today in follow up of N/V. CC: Patient reports having nausea and vomiting for the last 2 days. She states that she gains some weight but does not have regular BMs and when she finally goes to the bathroom is diarrhea and she looses the weight again. She also c/o abdominal pain and would like to get a refill on Zofran. Upfitter Required: Yes Accompanied by: Self / Same As Patient Allergies cephalexin [From Keflex] Allergy (Intermediate, Verified 11/29/23 11:53) Eye Swelling morphine Allergy (Intermediate, Verified 11/29/23 11:53) Itching shellfish derived [SHELLFISH DERIVED] Allergy (Intermediate, Verified 11/29/23 11:53) swelling HPI HPI r/s follow up from 08/23: Details: Assessment & Plan (1) GERD (gastroesophageal reflux disease): Code(s): K21.9 - Gastro-esophageal reflux disease without esophagitis Category: Medical (2) Irritable bowel syndrome with diarrhea: Code(s): K58.0 - Irritable bowel syndrome with diarrhea Category: Medical (3) Nausea and vomiting: Code(s): R11.2 - Nausea with vomiting, unspecified Category: Medical Plan [place]IAN #Dtr Kayra translates per pt request. She stopped the 10mg reglan and her diarrhea stopped. She is now having soft stools. She continues on pantoprazole and imipramine and probiotics. However, she is still vomiting with eating now. I think we need to get the balance of reglan and her stooling right, so I want her to take a 1/2 5 mg reglan tid and see if we can find balance. She has an elevated RF. Sees rheum. ? if this also drives wt loss. ROV 3 weeks. Medications: New metoclopramide HCl (Reglan) 2.5 mg (1/2 x 5 mg) PO .tidac 45 tabs 6RF 30 days K21.9 - Gastro-esophageal reflux disease without esophagitis, K58.0 - Irritable bowel syndrome with diarrhea, R11.2 - Nausea with vomiting, unspecified Refilled pantoprazole 40 mg PO BID 60 tabs 6RF K21.9 - Gastro-esophageal reflux disease without esophagitis Discontinued ondansetron HCl Discontinued Reason: Doctor's Order 8 mg PO TID 90 tabs 3RF A04.72 - Enterocolitis due to Clostridium difficile, not specified as recurrent, R11.2 - Nausea with vomiting, unspecified sennosides (senna) Discontinued Reason: Doctor's Order 17.2 mg (2 x 8.6 mg) PO BEDTIME 30 days 60 caps 3RF constipation metoclopramide HCl (Reglan) Discontinued Reason: Doctor's Order 10 mg PO QIDACHS 120 tabs 6RF R11.2 - Nausea with vomiting, unspecified CORRESPONDENCE On 07/11/23 @ 15:37 Dorothy Navarrete Wrote To DanielleYanira Patient advised to repeat test, she agreed and verbalized understanding. Dorothy Navarrete removed from item. On 07/11/23 @ 09:46 Savana Verma Wrote To DanielleYanira (2) PT needs to do a recollect for the GI panel she filled the specimen cup well above the line and they can not use that, If you can call the patient and let her know and july if you can put in another order? TODAY'S VISIT [place] #Moraima Live She has not been well lately. She continues to have extremely uneven stooling habits where she will not move her bowels for 2-3 days but then when she does it just ?explode.? This will be extreme diarrhea until she empties out so much she is just passing yellow bile. This will cause her to be sweaty and very weak. When this isn't happening she tends to have nausea and vomiting. She has a hard time connecting these 2 symptoms sets in her cycle of events. She also will have lower abdominal pain that radiates to her back that she seems to think is related to her fibromyalgia syndrome. She is going to be starting to new medications for her fibromyalgia that will be gabapentin and Cymbalta. This is mildly concerning to me because sometimes these medications can also promote nausea. At this point I do not think the metoclopramide has worked well for her. I am going to try to get her the 8 mg Zofran dissolvable tablet since this seems to work better for her, stopped the Reglan, and try a bile binding agent specifically cholestyramine. I think this secret will be in regulating the sto oling as I think the nausea and vomiting may be reactive to this. She has had a fairly recent EGD and colonoscopy and a normal gastric emptying study in 2022. Return office visit in 6 weeks to evaluate her response. [facility] Medical History Diarrhea C. difficile colitis Asthma GERD (gastroesophageal reflux disease) Bipolar disorder Anxiety and depression Constipation Diarrhea Surgical History History of esophagogastroduodenoscopy (EGD) H/O colonoscopy History of tubal ligation History of section Family History Family/Other Cancer Other Family history of arthritis Social History Alcohol intake: never Patient Tobacco Use Status: Former Tobacco user Tobacco use type: Cigarette Substance Use Type: Marijuana Female Reproductive History Menstrual Age of Menarche: 17 Review of Systems Const Denies fatigue, Denies fever(s), Denies night sweats, Denies poor appetite and Denies weight loss ENT Reports Normal hearing present, Denies dental pain, Denies dysphagia, Reports dizziness, Denies hearing loss, Denies mouth pain, Denies odynophagia, Denies throat swelling, Denies tongue swelling and Reports other (Dentition adequate) Card Reports no additional complaints Resp Reports no additional complaints GI Details: Reports abdominal pain, Denies melena, Reports bloating, Denies hematochezia, Denies constipation, Denies GI cramping, Denies dysphagia, Reports excessive flatus, Denies early satiety, Reports heartburn, Reports diarrhea, Reports nausea, Denies odynophagia, Reports vomiting and Denies hematemesis Musc Reports back pain, Reports myalgias and Reports muscle weakness Skin/Breast Denies pruritus, Denies lesions, Denies rash and Denies jaundice Neuro Reports Normal hearing present, Denies Abnormal speech present and Reports dizziness Psych Reports anxiety Endo Denies fatigue Aller/Immun Denies throat swelling and Denies tongue swelling Physical Exam Const General: cooperative, no acute distress, well developed and well groomed Nutritional Appearance: well nourished and thin Orientation/consciousness: oriented to person, oriented to place and oriented to time Limitations: language barrier HEENT Head: Yes normocephalic and Yes atraumatic Eyes General: appearance normal, both eyes and all related structures Pupils: Equal, round and reactive pupils present Neck Neck: Yes normal visual inspection and Yes no lymphadenopathy Thyroid: Thyroid normal Resp Effort & Inspection: normal respiratory effort and able to speak in complete sentences Auscultation: clear to auscultation bilaterally Cardio Rate: regular rate Rhythm: regular rhythm Heart sounds: Normal, physiologic split S2 sound present Peripheral pulses: radial pulses present and posterior tibial pulses present GI Inspection: No distended and No Abdominal panniculus present Palpation (GI): Soft to palpation, nontender, no guarding, not rigid and No hepatosplenomegaly present Percussion: Yes normal to percussion Auscultation: normal bowel sounds Rectal Exam - Female: deferred Skin General skin exam: no rashes or lesions noted, turgor normal, skin not dry, no jaundice, No spider nevi and no striae Rashes: no rashes Nails: normal Neuro General: oriented to person, oriented to place and oriented to time Cranial nerves: Yes Equal, round and reactive pupils present and Yes Normal hearing present Speech: No Abnormal speech present Extrem General: Yes normal to inspection, No clubbing, No cyanosis and No edema Psych Appearance: grossly normal and well kempt Mental Status: mental status grossly normal Speech and movement: Pressured speech present and Psychomotor agitation in speech present Affect: Anxious affect present Attitude: cooperative Thought process: Circumstantial thought process present and not confabulating Thought content: Normal thought content present Insight: Limited insight present (Psych) Judgement: Limited judgement present (Psych) Assessment & Plan Assessment & Plan (1) Irritable bowel syndrome with diarrhea: Code(s): K58.0 - Irritable bowel syndrome with diarrhea Category: Medical (2) GERD (gastroesophageal reflux disease): Code(s): K21.9 - Gastro-esophageal reflux disease without esophagitis Category: Medical (3) Nausea and vomiting: Code(s): R11.2 - Nausea with vomiting, unspecified Category: Medical Plan [place] #Moraima Henry She has not been well lately. She continues to have extremely uneven stooling habits where she will not move her bowels for 2-3 days but then when she does it just ?explode.? This will be extreme diarrhea until she empties out so much she is just passing yellow bile. This will cause her to be sweaty and very weak. When this isn't happening she tends to have nausea and vomiting. She has a hard time connecting these 2 symptoms sets in her cycle of events. She also will have lower abdominal pain that radiates to her back that she seems to think is related to her fibromyalgia syndrome. She is going to be starting to new medications for her fibromyalgia that will be gabapentin and Cymbalta. This is mildly concerning to me because sometimes thes e medications can also promote nausea. At this point I do not think the metoclopramide has worked well for her. I am going to try to get her the 8 mg Zofran dissolvable tablet since this seems to work better for her, stopped the Reglan, and try a bile binding agent specifically cholestyramine. I think this secret will be in regulating the stooling as I think the nausea and vomiting may be reactive to this. She has had a fairly recent EGD and colonoscopy and a normal gastric emptying study in 2022. Return office visit in 6 weeks to evaluate her response. Medications: New cholestyramine (with sugar) 4 gram administer w/meal; avoid other meds within 1hr before or 4-6hr after dose 4 grams PO BID 60 ea 3RF K58.0 - Irritable bowel syndrome with diarrhea ondansetron 8 mg PO Q12H 60 tabs 3RF R11.2 - Nausea with vomiting, unspecified Discontinued metoclopramide HCl (Reglan) Discontinued Reason: Doctor's Order 2.5 mg (1/2 x 5 mg) PO .tidac 30 days 45 tabs 6RF K21.9 - Gastro-esophageal reflux disease without esophagitis, K58.0 - Irritable bowel syndrome with diarrhea, R11.2 - Nausea with vomiting, unspecified Coding Level of Care Code Est Pt Level 4 (40401) Diagnoses Irritable bowel syndrome with diarrhea K58.0 GERD (gastroesophageal reflux disease) K21.9 Nausea and vomiting R11.2 Time Spent (min) 32
[2023-11-29 11:45] VITALS: BP 90/57; PULSE 76; BMI 20.5
== END 2023-11-29 12:29 | disposition home or self-care (01) ==
PROVIDERS: PCP Student in an Organized Health Care Education/Training Program; Visit Provider Nurse Practitioner
DX: K58.0 Irritable bowel syndrome with diarrhea (principal); K21.9 Gastro-esophageal reflux disease without esophagitis; R11.2 Nausea with vomiting, unspecified
CPT/HCPCS: 99214

== ENCOUNTER → 2023-11-29 11:33 | Outpatient (BNVA) | payer MEDICAID, SELFPAY | PROVIDERS: PCP Student in an Organized Health Care Education/Training Program; Visit Provider Nurse Practitioner | DX: K58.0 Irritable bowel syndrome with diarrhea (principal); K21.9 Gastro-esophageal reflux disease without esophagitis; R11.2 Nausea with vomiting, unspecified; R10.9 Unspecified abdominal pain | CPT/HCPCS: 99212 ==

== ENCOUNTER 2024-01-07 22:27 | Emergency (ER) | payer MEDICAID, SELFPAY ==
--- NOTE | ~2024-01-07 | XR_ITS ---
EXAMINATION: XR CHEST CLINICAL INFORMATION: Cough, chest wall pain. COMPARISON: Chest radiograph 01/23/2020 TECHNIQUE: 2 views of the chest were obtained. FINDINGS: Normal appearance of the cardiomediastinal structures. No effusions or pneumothoraces. No focal pulmonary consolidation. Normal pattern of pulmonary vasculature. No displaced rib fractures identified. XR/XR chest 2V IMPRESSION: No acute cardiopulmonary abnormalities. Electronically signed by: Rocky Kemp MD 01/08/2024 12:45 AM EDT
--- NOTE | 2024-01-07 22:31 | ECG_ITS ---
Test Reason : CP Blood Pressure : / mmHG Vent. Rate : 070 BPM Atrial Rate : 070 BPM P-R Int : 128 ms QRS Dur : 072 ms QT Int : 382 ms P-R-T Axes : 010 070 038 degrees QTc Int : 412 ms Normal sinus rhythm Normal ECG When compared with ECG of 23-JAN-2020 10:48, No significant change was found Referred By: Generic ED Physician Electronically Signed By:SAMIR BARON
[2024-01-07 22:42] VITALS: BP 118/47; PULSE 66; RESP 18; TEMP 36.6; O2SAT 99; BMI 20.4
[2024-01-07 23:01] LABS: MANUAL DIFF FLAG NO
[2024-01-07 23:02] LABS: Basophils Percent Auto 0.4 % (0-2); Eosinophils Percent Auto 0.2 % (0-4); Hematocrit 34.9 % (37.0-47.0); Hemoglobin 12.1 g/dl (12.0-16.0); Lymphocytes Absolute Auto 2.8 X10*3/uL (1.2-4.9); Lymphocytes Percent Auto 49.4 % (20-40); Mean Corpuscular HGB Conc 34.7 g/dl (31.0-35.0); Mean Corpuscular Hemoglobin 31.4 pg (27.0-33.0); Mean Corpuscular Volume 90.6 fL (80.0-98.0); Mean Platelet Volume 9.5 fL (9.4-12.3); Monocytes Absolute Auto 0.3 X10*3/uL (0.1-1.2); Monocytes Percent Auto 6.1 % (2-11); Neutrophils Absolute Auto 2.5 x10*3/uL (2.0-8.3); Neutrophils Percent Auto 43.9 % (45-73); Platelet Count 251 X10*3/uL (160-400); Red Blood Count 3.85 X10*6/uL (4.20-5.50); Red Cell Distribution Width 12.4 % (11.0-16.0); White Blood Count 5.6 X10*3/uL (4.8-10.8)
[2024-01-07 23:15] LABS: Anion Gap 12 (12-20); Blood Urea Nitrogen 11 mg/dL (9-16); Calcium 8.5 mg/dL (8.4-10.2); Carbon Dioxide 25 mmol/L (22-29); Chloride 107 mmol/L (96-108); Creatinine Clr Calc Pharmacy 78.3; Estimated Glomerular Filt Rate > 60; Glucose Random 114 mg/dL (60-115); Potassium 3.9 mmol/L (3.3-5.1); Sodium 140 mmol/L (135-145)
[2024-01-07 23:24] LABS: Troponin-I High Sensitivity < 2.7 ng/L (<3.5-17.0)
== END 2024-01-08 05:42 | disposition left against medical advice (07) ==
LOC: HO.ED 01-08 05:15
PROVIDERS: Emergency Provider Emergency Medicine
DX: R07.9 Chest pain, unspecified (principal); J45.909 Unspecified asthma, uncomplicated
CPT/HCPCS: 36415; 71046; 80048; 84484; 85025; 93005; 99283

== ENCOUNTER 2024-01-23 15:19 | Outpatient (REF) | payer MEDICAID, SELFPAY ==
--- NOTE | ~2024-01-23 | XR_ITS ---
EXAMINATION: XR CHEST CLINICAL INFORMATION: Cough for 2 weeks COMPARISON: None available. TECHNIQUE: 2 views of the chest were obtained. FINDINGS: Lungs grossly are clear. No pleural effusions. Heart and pulmonary vessels normal. XR/XR chest 2V IMPRESSION: No active disease. Electronically signed by: Job Champagne MD 01/24/2024 12:09 PM EDT
[2024-01-23 16:46] LABS: MANUAL DIFF FLAG NO
[2024-01-23 16:57] LABS: Basophils Percent Auto 0.2 % (0-2); Hematocrit 36.4 % (37.0-47.0); Hemoglobin 12.5 g/dl (12.0-16.0); Imm Gran Abs Auto 0.01 X10*3/uL (0.00-0.03); Imm Gran Pct Auto 0.2 % (0.0-0.4); Lymphocytes Absolute Auto 2.2 X10*3/uL (1.2-4.9); Lymphocytes Percent Auto 37.3 % (20-40); Mean Corpuscular HGB Conc 34.3 g/dl (31.0-35.0); Mean Corpuscular Hemoglobin 30.9 pg (27.0-33.0); Mean Corpuscular Volume 90.1 fL (80.0-98.0); Mean Platelet Volume 10.4 fL (9.4-12.3); Monocytes Absolute Auto 0.3 X10*3/uL (0.1-1.2); Monocytes Percent Auto 5.5 % (2-11); Neutrophils Absolute Auto 3.4 x10*3/uL (2.0-8.3); Neutrophils Percent Auto 56.8 % (45-73); Platelet Count 235 X10*3/uL (160-400); Red Blood Count 4.04 X10*6/uL (4.20-5.50); Red Cell Distribution Width 12.2 % (11.0-16.0)
[2024-01-23 17:16] LABS: Alanine Aminotransferase 16 U/L (0-31); Albumin Level 4.3 g/dL (3.5-5.0); Alkaline Phosphatase 51 U/L (39-117); Anion Gap 12 (12-20); Aspartate Amino Transferase 25 U/L (5-31); Bilirubin Total 0.5 mg/dL (0.0-1.0); Blood Urea Nitrogen 13 mg/dL (9-16); Calcium 9.5 mg/dL (8.4-10.2); Carbon Dioxide 21 mmol/L (22-29); Chloride 111 mmol/L (96-108); Estimated Glomerular Filt Rate > 60; Glucose Random 81 mg/dL (60-115); Potassium 3.9 mmol/L (3.3-5.1); Sodium 140 mmol/L (135-145); Total Protein 7.2 g/dL (6.5-8.0)
== END 2024-01-23 15:20 | disposition home or self-care (01) ==
LOC: HO.HHCL 15:19
PROVIDERS: Visit Provider General Practice
DX: R05.1 Acute cough (principal)
CPT/HCPCS: 36415; 71046; 80053; 85025

== ENCOUNTER 2024-03-04 12:07 | Outpatient (REF) | payer MEDICAID, SELFPAY ==
--- NOTE | ~2024-03-04 | XR_ITS ---
EXAMINATION: XR HAND, LEFT CLINICAL INFORMATION: SWELLING COMPARISON: Left hand x-ray on 05/15/2023 TECHNIQUE: PA, lateral, and oblique views of the left hand. FINDINGS: The bones and soft tissues are normal. No fracture. Alignment is anatomic. Joint spaces are maintained. No erosions or soft tissue calcifications. XR/XR hand LT min 3V IMPRESSION: Normal left hand. Electronically signed by: Pratibha Stevens MD 03/04/2024 04:04 PM [facility]
--- NOTE | ~2024-03-04 | XR_ITS ---
EXAMINATION: XR HAND, RIGHT CLINICAL INFORMATION: SWELLING COMPARISON: Right hand x-ray on 05/15/2023 TECHNIQUE: PA, lateral, and oblique views of the right hand. FINDINGS: The bones and soft tissues are normal. No fracture. Alignment is anatomic. Joint spaces are maintained. No erosions or soft tissue calcifications. XR/XR hand RT min 3V IMPRESSION: Normal right hand. Electronically signed by: Pratibha Stevens MD 03/04/2024 04:05 PM LNID[facility]
== END 2024-03-04 12:08 | disposition home or self-care (01) ==
LOC: HO.HHCX 12:07
PROVIDERS: Visit Provider General Practice
DX: M79.89 Other specified soft tissue disorders (principal)
CPT/HCPCS: 73130

== ENCOUNTER 2024-04-09 12:22 | Outpatient (REF) | payer MEDICAID, SELFPAY ==
--- NOTE | ~2024-04-09 | XR_ITS ---
EXAMINATION: XR ANKLE, RIGHT CLINICAL INFORMATION: dropped something on outside of R ankle COMPARISON: None available. TECHNIQUE: AP, lateral, and mortise views of the right ankle. FINDINGS: No fracture. Alignment is anatomic. No erosions. Joint spaces are maintained. Soft tissues are normal. XR/XR ankle RT min 3V IMPRESSION: Unremarkable right ankle exam. Electronically signed by: Merritt Elizalde MD 04/09/2024 12:42 PM EST
== END 2024-04-09 12:23 | disposition home or self-care (01) ==
LOC: HO.HHCX 12:22
PROVIDERS: Visit Provider General Practice
DX: M25.571 Pain in right ankle and joints of right foot (principal)
CPT/HCPCS: 73610

== ENCOUNTER → 2024-04-09 12:22 | Outpatient (BNV) | payer MEDICAID, SELFPAY | PROVIDERS: Visit Provider Radiology Diagnostic Radiology | DX: M25.571 Pain in right ankle and joints of right foot (principal) | CPT/HCPCS: 73610 ==

== ENCOUNTER 2024-04-11 08:54 | Outpatient (AMB) | payer MEDICAID, SELFPAY ==
[2024-04-11 08:59] VITALS: BMI 20.4
--- NOTE | 2024-04-11 08:59 | A.OFFVIS_ITS ---
Vital Signs 04/11/24 08:59 Height 5 ft 7 in Weight 130 lb 1.6 oz BMI 20.4 Intake Visit Reasons: Bilateral knee pains Intake Note: Kera is a 43 year old female who presents with complaints of progressively worsening bilateral knee pains, left greater than right. The patient states that she injured her left knee when she fell down several stairs in June of 2023. Since that time her bilateral knee pains have gotten worse. The patient states that her left knee will give out several times per day. At this point her left knee pain is interfering with her activities of daily living and her ability to sleep well through the night. She has tried a knee brace which gave her minimal relief. She has also been seen by Rheumatology. She has tried Tylenol and anti-inflammatory medicines which gave her minimal relief. She completed formal physical therapy which seemed to aggravate her pain. Supervisor Beet End Required: Yes Supervisor Beet End Language: First Aid Nurse Name: AVINASH Castro/MIGUEL Information Interpreted: clinical only Allergies cephalexin [From Keflex] Allergy (Intermediate, Verified 04/11/24 08:59) Eye Swelling morphine Allergy (Intermediate, Verified 04/11/24 08:59) Itching shellfish derived [SHELLFISH DERIVED] Allergy (Intermediate, Verified 04/11/24 08:59) swelling Medication List - Last Reviewed 04/11/24 by AVINASH Orellana albuterol sulfate 2.5 mg inhalation Q4-6H calcium carbonate (Antacid Ext Str (calcium carb)) 1 - 2 tabs PO DIRECTED cholecalciferol (vitamin D3) 50 mcg PO QAM cholestyramine (with sugar) 4 gram 4 grams PO BID clonazepam 1 mg PO TID PRN cyproheptadine 4 mg PO BID dicyclomine 40 mg (2 x 20 mg) PO QID 30 days diphenhydramine HCl (Banophen) 25 - 50 mg PO BEDTIME PRN famotidine 20 mg PO QPM fluoxetine 40 mg PO QAM fluticasone propionate 220 mcg/actuation (Flovent HFA) 1 puff inhalation BID ibuprofen 800 mg PO Q8H PRN imipramine HCl 50 mg PO BEDTIME Lactobacillus acidoph-L.bulgar 1 million cell 1 tab PO QAM levonorgestrel (Mirena) intrauterine loperamide 4 mg (2 x 2 mg) PO TID PRN loratadine (Allergy Relief (loratadine)) 10 mg PO DAILY magnesium hydroxide (Milk of Magnesia) 5 mL PO BEDTIME mometasone 200 mcg/actuation (Asmanex HFA) 1 puff inhalation BID montelukast 10 mg PO QPM multivit-iron sulf-folic acid 15 mg iron- 400 mcg (Tab-A-Kisha Multivitamin w- iron) 1 tab PO QAM ondansetron 8 mg PO Q12H pantoprazole 40 mg PO BID PNV,calcium 24-drso-rowdu acid 27 mg iron- 1 mg ( Vitamins Plus Low Iron) 1 tab PO QAM quetiapine 300 mg PO BEDTIME quetiapine 100 mg PO BID PRN riboflavin (vitamin B2) (Vitamin B-2) 400 mg PO DAILY ropinirole 4 mg PO BEDTIME topiramate 25 mg PO BEDTIME tramadol 50 mg PO Q12H PRN PFSH Medical History (Reviewed 11/29/23 @ 11:53 by Dorothy Roberts [facility] [place]) Diarrhea C. difficile colitis Asthma GERD (gastroesophageal reflux disease) Bipolar disorder Anxiety and depression Constipation Diarrhea Surgical History History of esophagogastroduodenoscopy (EGD) H/O colonoscopy History of tubal ligation History of section Family History Family/Other Cancer Other Family history of arthritis Social History Alcohol intake: never Patient Tobacco Use Status: Former Tobacco user Tobacco use type: Cigarette Substance Use Type: Marijuana Female Reproductive History Menstrual Age of Menarche: 17 Physical Exam Vital Signs: BMI result Body Mass Index 20.4 Const Other: Well-nourished well-developed very friendly female awake alert and oriented x3 in no acute distress Extrem Other: Bilateral lower extremity examination shows good capillary refill, no skin lesions noted, normal sensation light touch Left knee examination shows a minimal effusion, minimal crepitus with range of motion, tenderness along her medial joint line, positive Gatito's test, no instability Results Reviewed Results Reviewed: Standing full weight-bearing x-rays of the patient's left knee show mild diffuse joint space narrowing, no acute bony abnormalities Assessment & Plan Assessment & Plan (1) Tear of medial meniscus of left knee: Code(s): S83.242A - Other tear of medial meniscus, current injury, left knee, initial encounter Category: Medical Plan Ms. Lc Nicole presents with progressively worsening left knee pain and mechanical symptoms most likely due to a tear of her medial meniscus. Thus, I will send the patient for an MRI of her left knee for further evaluation. I will see her back once the MRI is completed to discuss the findings and treatment options. Feel free to call me at any time should questions regarding her orthopedic management arise. I spent 20 minutes in reviewing the patient's records and imaging studies, seeing the patient and documenting in the medical record. Orders: Orders XR knee RT 3V Today M25.561 - Pain in right knee XR knee LT 3V Today M25.562 - Pain in left knee MR knee LT wo con Today S83.242A - Other tear of medial meniscus, current injury, left knee, initial encounter Coding Level of Care Code New Pt Level 3 (39781) Complex EM visit Add On G2211 Diagnoses Tear of medial meniscus of left knee S83.242A
== END 2024-04-11 09:48 | disposition home or self-care (01) ==
PROVIDERS: Visit Provider Orthopaedic Surgery
DX: S83.242A Other tear of medial meniscus, current injury, left knee, initial encounter (principal)
CPT/HCPCS: 99203

== ENCOUNTER 2024-04-11 10:52 | Outpatient (REF) | payer MEDICAID, SELFPAY ==
--- NOTE | ~2024-04-11 | XR_ITS ---
EXAMINATION: XR KNEE, RIGHT CLINICAL INFORMATION: M25.561 - Pain in right knee COMPARISON: August 14, 2022 TECHNIQUE: Four views of the right knee. FINDINGS: No significant joint effusion. Bone mineralization is normal. Mild narrowing of the medial compartment with minimal medial marginal osteophytes. XR/XR knee RT 3V IMPRESSION: Mild degenerative changes in the medial compartment. Electronically signed by: Lilia Akbar MD 04/15/2024 10:26 AM [facility]
--- NOTE | ~2024-04-11 | XR_ITS ---
EXAMINATION: XR KNEE, LEFT CLINICAL INFORMATION: M25.562 - Pain in left knee COMPARISON: August 14, 2022 TECHNIQUE: Four views of the left knee. FINDINGS: No significant joint effusion. Bone mineralization is normal. Mild narrowing of the medial compartment with minimal medial marginal osteophytes. XR/XR knee LT 3V IMPRESSION: Mild degenerative changes in the medial compartment. Electronically signed by: Lilia Akbar MD 04/15/2024 10:24 AM [facility]
== END 2024-04-11 10:53 | disposition home or self-care (01) ==
LOC: HO.HOSX 10:52
PROVIDERS: Visit Provider Orthopaedic Surgery
DX: M25.561 Pain in right knee (principal); M25.562 Pain in left knee
CPT/HCPCS: 73562; 99202

== ENCOUNTER 2024-04-18 17:57 | Outpatient (REF) | payer MEDICAID, SELFPAY ==
--- NOTE | ~2024-04-18 | MR_ITS ---
EXAMINATION: MRI LEFT KNEE WITHOUT CONTRAST HISTORY: S83.242A - Other tear of medial meniscus, current injury, left knee COMPARISON: Correlation is made to plain films of the left knee dated 04/11/2024. TECHNIQUE: Coronal T1 and fat-suppressed proton density, sagittal proton density and fat-suppressed proton density, and axial fat suppressed T2 weighted MR images of the left knee were obtained. FINDINGS: There is a small ill-defined focus of bone marrow edema in the medial femoral condyle, suggestive of a bone contusion. Bone marrow signal intensity is otherwise normal. There is no suprapatellar joint effusion. There is a popliteal fossa Louis's cyst measuring 4.3 x 1.1 x 3.9 cm. The anterior and posterior cruciate ligaments and medial and lateral collateral ligaments are intact. The medial and lateral menisci are intact. There is thinning and increased signal intensity in the medial aspect of the quadriceps tendon at its insertion on the patella, with surrounding soft tissue edema, compatible with a partial tear. The patellar tendon is intact. The patellar retinacula are unremarkable in appearance. The popliteal tendon is intact. No articular cartilage abnormality is identified. MR/MR knee LT wo con IMPRESSION: 1. Small bone contusion involving the medial femoral condyle. 2. 4.3 x 1.1 x 3.9 cm popliteal fossa Louis's cyst. 3. Findings compatible with a partial tear of the distal quadriceps tendon, as described. Electronically signed by: Everett Rich MD 04/19/2024 07:22 AM [facility]
== END 2024-04-18 17:58 | disposition home or self-care (01) ==
LOC: HO.MRI 17:57
PROVIDERS: Visit Provider Orthopaedic Surgery
DX: S83.242A Other tear of medial meniscus, current injury, left knee, initial encounter (principal)
CPT/HCPCS: 73721

== ENCOUNTER → 2024-04-18 18:16 | Outpatient (BNV) | payer MEDICAID, SELFPAY | PROVIDERS: Visit Provider Radiology Diagnostic Radiology | DX: S83.242A Other tear of medial meniscus, current injury, left knee, initial encounter (principal) | CPT/HCPCS: 73721 ==

== ENCOUNTER 2024-05-17 08:21 | Outpatient (AMB) | payer MEDICAID, SELFPAY ==
--- NOTE | 2024-05-17 08:24 | A.OFFVIS_ITS ---
Vital Signs 05/17/24 08:34 Height 5 ft 7 in Weight 119 lb 14.903 oz BMI 18.8 BP 108/62 Blood Pressure Location Rt brachial Position Sitting Pulse 84 Pulse Source Pulse Oximeter Pulse Oximetry (%) 99 Oxygen Delivery Method Room Air Intake Visit Reasons: Diarrhea, abd pain/ PT Intake Note: ESTABLISHED PATIENT for mgmt of GERD, abd pain, and diarrhea. PMHx including c. diff infection Chief Complaint; C/O severe diarrhea w/ any consumption regardless of contents. Pt reports severe weight loss which she is still very concerned about. Pt reports weight loss of ~ 45 lbs in the last year. Pt also reports intermittent reflux in addition to moderate, generalized abd pain. Pt describes pain as intense and incapacitating intermittently. Account Services Specialist Required: Yes Account Services Specialist Services: Account Services Specialist Present Account Services Specialist Name: Kodi Davis101 Information Interpreted: clinical only Accompanied by: Self / Same As Patient Allergies cephalexin [From Keflex] Allergy (Intermediate, Verified 05/17/24 08:32) Eye Swelling morphine Allergy (Intermediate, Verified 05/17/24 08:32) Itching shellfish derived [SHELLFISH DERIVED] Allergy (Intermediate, Verified 05/17/24 08:32) swelling HPI HPI Diarrhea, abd pain/ PT: Details: LAST VISIT 11/29/2023 WITH BEV SANTIAGO NP She has not been well lately. She continues to have extremely uneven stooling habits where she will not move her bowels for 2-3 days but then when she does it just ?explode.? This will be extreme diarrhea until she empties out so much she is just passing yellow bile. This will cause her to be sweaty and very weak. When this isn't happening she tends to have nausea and vomiting. She has a hard time connecting these 2 symptoms sets in her cycle of events. She also will have lower abdominal pain that radiates to her back that she seems to think is related to her fibromyalgia syndrome. She is going to be starting to new medications for her fibromyalgia that will be gabapentin and Cymbalta. This is mildly concerning to me because sometimes these medications can also promote nausea. At this point I do not think the metoclopramide has worked well for her. I am going to try to get her the 8 mg Zofran dissolvable tablet since this seems to work better for her, stopped the Reglan, and try a bile binding agent specifically cholestyramine. I think this secret will be in regulating the stooling as I think the nausea and vomiting may be reactive to this. She has had a fairly recent EGD and colonoscopy and a normal gastric emptying study in 2022. Return office visit in 6 weeks to evaluate her response. TODAY'S VISIT Patient has been seen in the past by Bev Santiago who has been absent in the past couple weeks due to FMLA. Patient has been having epigastric pain, nausea and vomiting as well as postprandial diarrhea then constipation for the past few weeks. Symptoms are not getting better. Patient is getting worse. Patient feels like diarrhea has been incapacitating her. Patient reports that when she is under stress she will have severe cramping and then have diarrhea. Patient's sometimes reports that it is not controllable. Patient is tired of living like this. Denies any mucus in her stool, denies hematochezia or melena. Patient reports that she has been trying to eat healthy. Patient is tired of being on so many medications and feels like nothing is helping. Patient currently is taking loperamide 4 her diarrhea, however she feels like it is really not helping. Was taking cholestyramine, however states that she did not notice any help. In the past couple weeks the symptoms were getting worse. Currently patient is on pantoprazole twice a day, famotidine at bedtime, dicyclomine 40 mg 4 times a day and cholestyramine twice a day. [facility] Medical History Diarrhea C. difficile colitis Asthma GERD (gastroesophageal reflux disease) Bipolar disorder Anxiety and depression Constipation Diarrhea Surgical History History of esophagogastroduodenoscopy (EGD) H/O colonoscopy History of tubal ligation History of section Family History Family/Other Cancer Other Family history of arthritis Social History Alcohol intake: never Patient Tobacco Use Status: Former Tobacco user Tobacco use type: Cigarette Substance Use Type: Marijuana Female Reproductive History Menstrual Age of Menarche: 17 Review of Systems Const Denies weight gain and Denies weight loss ENT Reports no additional complaints, Denies dysphagia and Denies odynophagia Card Reports no additional complaints Resp Reports no additional complaints GI Reports abdominal pain, Denies belching, Denies melena, Reports bloating, Denies change in bowel habits, Reports constipation, Denies dysphagia, Denies excessive flatus, Denies dyspepsia, Reports heartburn, Reports diarrhea, Denies loose stools, Denies nausea, Denies odynophagia and Denies vomiting Reports no additional complaints Musc Reports no additional complaints Neuro Reports no additional complaints Psych Reports no additional complaints Endo Reports no additional complaints Physical Exam Vital Signs: Last Vital Signs Pulse 84 05/17/24 08:34 BP 108/62 05/17/24 08:34 Pulse Ox 99 05/17/24 08:34 Oxygen Delivery Method Room Air 05/17/24 08:34 BMI result Body Mass Index 18.8 Const General: healthy appearing, no acute distress and well developed Nutritional Appearance: well nourished Orientation/consciousness: patient oriented x3 Resp Effort & Inspection: normal respiratory effort, able to speak in complete sentences, no tracheal deviation and symmetric chest movement Auscultation: clear to auscultation bilaterally Cardio Rate: regular rate GI Inspection: Yes normal to inspection and No distended Palpation (GI): Soft to palpation, not firm, nontender and No hepatosplenomegaly present Auscultation: normal bowel sounds General: Yes no CVA tenderness Back/Spine/Pelvis Back: no CVA tenderness Skin General skin exam: elasticity normal, turgor normal and dry skin Neuro General: patient oriented x3 Psych Appearance: grossly normal Mental Status: mental status grossly normal Assessment & Plan Assessment & Plan (1) Abdominal pain: Code(s): R10.9 - Unspecified abdominal pain Category: Medical Qualifiers: Abdominal location: generalized Qualified Code(s): R10.84 - Generalized abdominal pain (2) Nausea and vomiting: Code(s): R11.2 - Nausea with vomiting, unspecified Category: Medical Qualifiers: Vomiting type: unspecified Qualified Code(s): R11.2 - Nausea with vomiting, unspecified (3) Weight loss, abnormal: Code(s): R63.4 - Abnormal weight loss Category: Medical (4) Postprandial abdominal bloating: Code(s): R14.0 - Abdominal distension (gaseous) (5) Postprandial epigastric pain: Code(s): R10.13 - Epigastric pain (6) Constipation: Code(s): K59.00 - Constipation, unspecified Qualifiers: Constipation type: slow transit constipation Qualified Code(s): K59.01 - Slow transit constipation (7) GERD (gastroesophageal reflux disease): Code(s): K21.9 - Gastro-esophageal reflux disease without esophagitis Category: Medical Qualifiers: Esophagitis presence: esophagitis presence not specified Qualified Code(s): K21.9 - Gastro-esophageal reflux disease without esophagitis (8) Abdominal bloating: Code(s): R14.0 - Abdominal distension (gaseous) Category: Medical (9) Irritable bowel syndrome with diarrhea: Code(s): K58.0 - Irritable bowel syndrome with diarrhea Category: Medical Plan Will check lipase 2 rule out chronic pancreatitis, hepatitis a CBC, lipase, vitamin-D. Thyroid study and vitamin B12, folate and liver panel. Will send patient for MRI of abdomen, MRCP to determine pain. Patient was encouraged to s tart taking fiber with pre and probiotics 1-2 chewables daily. She will take sucralfate at bedtime. We will give her senna at night time if she will feel constipated she can use it as needed. Currently patient is having diarrhea she might just need at better fiber to help her bulk her stool. Change PPI to Nexium in the morning. Avoid dietary triggers and late night snacking. Staying upright for minimum 3 hours after meals discussed with patient. Patient will return in 4 weeks to re-evaluate. She might not have completed the MRI yet, however we will still keep her appointment. Patient is agreeable to current plan of care and verbalizes understanding of instructions. She was given the opportunity to ask questions and all questions answered. Thank you for allowing me to participate in her care Orders: Orders Hepatitis A,B,C Profile 05/17/24 R79.89 - Other specified abnormal findings of blood chemistry Lipase 05/17/24 R10.9 - Unspecified abdominal pain Vitamin D 25-OH (D2 and D3) 05/17/24 E55.9 - Vitamin D deficiency, unspecified MR MRCP 05/17/24 R10.9 - Unspecified abdominal pain, R11.2 - Nausea with vomiting, unspecified, R63.4 - Abnormal weight loss HIV Ab/Ag 05/17/24 R79.89 - Other specified abnormal findings of blood chemistry TSH reflex Free T4 05/17/24 K59.00 - Constipation, unspecified Vitamin B12 and Folate 05/17/24 R19.7 - Diarrhea, unspecified Liver Panel 05/17/24 R74.01 - Elevation of levels of liver transaminase levels Medications: New sucralfate 10 mL PO BEDTIME 400 mL 3RF K21.9 - Gastro-esophageal reflux disease without esophagitis sennosides (Natural Senna Laxative) 17.2 mg (2 x 8.6 mg) PO BEDTIME 60 tabs 3RF constipation K59.00 - Constipation, unspecified esomeprazole magnesium (Nexium) 40 mg PO DAILY 30 caps 5RF K21.9 - Gastro- esophageal reflux disease without esophagitis Discontinued dicyclomine Discontinued Reason: Doctor's Order 40 mg (2 x 20 mg) PO QID 30 days 240 tabs 3RF cholestyramine (with sugar) 4 gram Discontinued Reason: Doctor's Order 4 grams PO BID 60 packets 3RF K58.0 - Irritable bowel syndrome with diarrhea pantoprazole Discontinued Reason: Doctor's Order 40 mg PO BID 60 tabs 6RF K21.9 - Gastro-esophageal reflux disease without esophagitis Coding Level of Care Code Est Pt Level 4 (58141) Diagnoses Generalized abdominal pain R10.84 Abdominal location: generalized Nausea and vomiting, unspecified vomiting type R11.2 Vomiting type: unspecified Weight loss, abnormal R63.4 Postprandial abdominal bloating R14.0 Postprandial epigastric pain R10.13 Slow transit constipation K59.01 Constipation type: slow transit constipation Gastroesophageal reflux disease, unspecified whether esophagitis present K21.9 Esophagitis presence: esophagitis presence not specified Abdominal bloating R14.0 Irritable bowel syndrome with diarrhea K58.0 Time Spent (min) 45 Comment 30 minutes spent with patient and additional 15 minutes spent reviewing her records
[2024-05-17 08:34] VITALS: BP 108/62; PULSE 84; O2SAT 99; BMI 18.8
--- OUTSIDE RECORDS SUMMARY | 2024-05-17 08:35 | XMS_ITS | Encounter Summary ---
Author Organization [employer] Address [address] 7 [place] [address] Care Team Providers Care Manager Law Name Role Phone Jessi Dueñas MD Primary Care Provider [phone] Reason for Visit * Reason Onset Date Comments Med Refill 04/29/2024 Encounter Details Date Type Department Care Team ([facility] st Contact Info) Description 04/29/2024 Refill [facility] [address] [place], [place] [phone] Jessi Dueñas MD [address] [place], [place] [phone] Fibromyalgia Social History Tobacco Use Types Packs/Day Years Used Date Smoking Tobacco: Never Passive Smoke Exposure: Never Smokeless Tobacco: Never Alcohol Use Standard Drinks/Week Comments Never 0 (1 standard drink = 0.6 oz pur e alcohol) Depression Answer Date Recorded Patient Health Questionnaire-9 Score 8 09/19/2023 Patient Health Questionnaire-9 Score 8 09/19/2023 Last PHQ-9: Questionnaire Data Not on file 0 09/19/2023 Housing Stability Answer Date Recorded What is your housing situation today? I have [place] john 05/09/[address] you li ve. Do you have problems with any of the following? Pests such as bugs, ants, or mice 05/09/2023 Food Insecurity Answer Date Recorded Within the past 12 months, y ou worried that your food would run out before you got money to buy more: Sometimes True 2023 Within the past 12 months,th e food you bought just didn't last and you didn't have enough money to get more: Sometimes True 05/09/2023 Transportation Answer Date Recorded In the past 12 months, has l ack of transportation kept you from medical appts, meetings, work or from getting things needed for daily living? Yes, it has kept me from non-medical meetings, work, or getting things that I need 05/09/2023 Utilities Answer Date Recorded In the past 12 months, has t he electric, gas, oil or water company threatened to shut off services in your home? No 01/17/2023 Depression Answer Date Recorded Patient Health Questionnaire-2 Score 2 09/19/2023 Comments Unknown Sex and Gender Information Value Date Recorded Sex Assigned at Female 01/31/2022 10:21 AM EDT Legal Sex Female 10:21 AM EDT Gender Identity Female 01/31/2022 10:21 AM EDT Sexual Orientation Straight 01/31/2022 10 :21 AM EDT documented as of this encounter Miscellaneous Notes * Telephone Encounter - Murali Ledbetter - 04/29/2024 2:08 PM EST TC from pt requesting medication refill. Medications needing refill : traMADol (Ultram) 50 MG tablet To be sent to: [facility] pharmacy documented in this encounter Plan of Treatment Upcoming Encounters Date Type Department Care Team (Late st Contact Info) Description 05/17/2024 11:00 AM EST Office Visit [facility] [address] [place] [address] Jessi Dueñas MD [address] [place] [address] documented as of this encounter Visit Diagnoses Diagnosis Fibromyalgia Unspecified myalgia and myositis documented in this encounter Additional Health Concerns Assessment Noted Time PHQ-9 Depression Total Score: 8 09/19/19 24 11:07 AM EDT documented as of this encounter Care Teams Manager Law Relationship Specialty Start Date End Date Jessi Dueñas MD [address] [place] [id number] PCP - General Family Medicine 11/24/20 Mikayla Bhagat Ice Cream ManClam Digger 05/09/23 documented as of this encounter
--- OUTSIDE RECORDS SUMMARY | 2024-05-17 08:35 | XMS_ITS | Encounter Summary ---
Author Organization [employer] Address [address] [place] [address] Care Team Providers Care Edgerman Name Role Phone Jessi Dueñas MD Primary Care Provider [phone] Encounter Details Date Type Department Care Team ([facility] st Contact Info) Description 04/17/2024 Telephone [facility] [address] [place], [place] [phone] Jessi Dueñas MD [address] [place], [place] [phone] Social History Tobacco Use Types Packs/Day Years [...] is your housing situation today? I have bola john 05/09/[address] you [...] AM EDT documented as of this encounter Plan of Treatment Upcoming Encounters Date Type Department Care Team (Late st Contact Info) Description 05/17/2024 11:00 AM EST Office Visit [facility] [address] [place] [address] Jessi Dueñas MD [address] [place] [address] documented as of this encounter Visit Diagnoses Not on filedocumented in this encounter Additional Health Concerns Assessment Noted Time PHQ-9 Depression Total Score: 8 09/19/19 24 11:07 AM EDT documented as of this encounter Care Teams Edgerman Relationship Specialty Start Date End Date Jessi Dueñas MD [address] [place] [id number] PCP - General Family Medicine 11/24/20 Mikayla Bhagat Aquatic LaborerBeef Selector 05/09/23 documented as of this encounter
--- OUTSIDE RECORDS SUMMARY | 2024-05-17 08:36 | XMS_ITS | Encounter Summary ---
Author Organization [employer] Address 75 [facility] 7t [place] [address] Care Team Providers Care Segment Block Layer Name Role Phone Jessi Dueñas MD Primary Care Provider [phone] Encounter Details Date Type Department Care Team ([facility] st Contact Info) Description 01/11/2023 Orders Only [facility] MEDICINE [address] [place], [place] [phone] Jessi Dueñas MD [address] [place], [place] [phone] Chronic pain of both knees (Primary Dx) Social History Tobacco Use Types Packs/Day Years Used Date Smoking Tobacco: Never Passive Smoke Exposure: Never Smokeless Tobacco: Never Alcohol Use Standard Drinks/Week Comments Never 0 (1 standard drink = 0.6 oz pur e alcohol) Depression Answer Date Recorded Patient Health Questionnaire-9 Score 20 01/04/2023 Housing Stability Answer Date Recorded What is your housing situation today? I have bola john 01/11/[address] you li ve. Do you have problems with any of the following? None of the above 01/11/2023 Food Insecurity Answer Date Recorded Within the past 12 months, y ou worried that your food would run out before you got money to buy more: Never True 01/11/2023 Within the past 12 months,th e food you bought just didn't last and you didn't have enough money to get more: Never True 02/2023 Transportation Answer Date Recorded In the past 12 months, has l ack of transportation kept you from medical appts, meetings, work or from getting things needed for daily living? Yes, it has kept me from medical appointments or getting medications. 01/11/2023 Utilities Answer Date Recorded In the past 12 months, has t he electric, gas, oil or water company threatened to shut off services in your home? No 01/11/2023 Depression Answer Date Recorded Patient Health Questionnaire-2 Score 6 01/04/2023 Comments Unknown Sex and Gender Information Value [...] Description 05/17/2024 11:00 AM EST Office Visit [facility] MED[facility]INE [address] [place] [address] Jessi Dueñas MD [address] [place] [address] documented as of this encounter Visit Diagnoses Diagnosis Chronic pain of both knees- Primary documented in this encounter Additional Health Concerns Assessment Noted Time PHQ-9 Depression Total Score: 20 023 9:49 AM EDT documented as of this encounter Care Teams Segment Block Layer Relationship Specialty Start Date End Date Jessi Dueñas MD [address] [place] [address] PCP - General Family Medicine 11/24/20 Mikayla Bhagat Ceo & Board DirectorTax Attorney 05/09/23 documented as of this encounter
--- OUTSIDE RECORDS SUMMARY | 2024-05-17 08:36 | XMS_ITS | Encounter Summary ---
Author Organization [employer] Address 75 [facility] 7t [place] [address] Care Team Providers Care Tongue Trimmer Name Role Phone Jessi Dueñas MD Primary Care Provider [phone] Reason for Referral * Consultation (Routine) - Closed Specialty Diagnoses / Procedures Referred By Contac t Referred To Contact Physical Therapy Diagnoses Acute bilateral low back pain without sciatica Chronic pain of both knees Bilateral hand pain Jessi Dueñas MD [address] [place] [address] Phone: tel: fax: [facility] [address] [facility] [address] [place], [place] Phone: tel: fax: Referral ID Status Reason Start Date Expiration Date V isits Requested Visits Authorized [id number] Closed Specialty Services Required 04/17/2024 04/17/2025 20 20 Encounter Details Date Type Department Care Team (Late st Contact Info) Description 04/17/2024 Orders Only [facility] [address] [place] [address] [phone] Jessi Dueñas MD [address] [place], [place] [phone] Acute bilateral low back pain without sciatica (Primary Dx); Polyarthralgia; Chronic pain of both knees; Bilateral hand pain Social History Tobacco Use Types Packs/Day Years [...] Description 05/17/2024 11:00 AM EST Office Visit [facility] [address] [place] [address] Jessi Dueñas MD [address] [place] [address] Scheduled Referrals Name Type Priority Associated Diagnoses Orde r Schedule Referral to Physical Therapy Outpatient Referral Routine Acute bilateral low back pain without sciatica Chronic pain of both knees Bilateral hand pain Expected: 04/17/2024 (Approximate), Expires: 04/17/2025 documented as of this encounter Visit Diagnoses Diagnosis Acute bilateral low back pain without sciatica- Primary Polyarthralgia Pain in joint, multiple sites Chronic pain of both knees Bilateral hand pain documented in this encounter Additional Health Concerns Assessment Noted Time PHQ-9 Depression Total Score: 8 09/19/19 24 11:07 AM EDT documented as of this encounter Care Teams Tongue Trimmer Relationship Specialty Start Date End Date Jessi Dueñas MD [address] [place] [address] PCP - General Family Medicine 11/24/20 Mikayla Bhagat Heater MechanicSenior Application Security Consultant 05/09/23 documented as of this encounter
--- OUTSIDE RECORDS SUMMARY | 2024-05-17 08:36 | XMS_ITS | Encounter Summary ---
Author Organization [employer] Address 75 [facility] 7t [place] [address] Care Team Providers Care Resource Teacher Name Role Phone Jessi Dueñas MD Primary Care Provider [phone] Reason for Visit * Reason Comments Med Refill Encounter Details Date Type Department Care Team ([facility] st Contact Info) Description 05/12/2024 Refill [facility] MEDICINE [address] [place], [place] [phone] Jessi Dueñas MD [address] [place], [place] [phone] Allergic rhinitis, unspecified seasonality, unspecified trigger Social History Tobacco Use Types Packs/Day Years [...] Description 05/17/2024 11:00 AM EST Office Visit [facility] MEDICINE [address] [place] [address] Jessi Dueñas MD [address] [place] [address] documented as of this encounter Visit Diagnoses Diagnosis Allergic rhinitis, unspecified seasonality, unspecified trigger documented in this encounter Additional Health Concerns Assessment Noted Time PHQ-9 Depression Total Score: 8 09/19/19 24 11:07 AM EDT documented as of this encounter Care Teams Resource Teacher Relationship Specialty Start Date End Date Jessi Dueñas MD [address] [place] [address] PCP - General Family Medicine 11/24/20 Mikayla Bhagat Stone Carriage OperatorAxle Polisher 05/09/23 documented as of this encounter
--- OUTSIDE RECORDS SUMMARY | 2024-05-17 08:36 | XMS_ITS | Encounter Summary ---
Author Organization [employer] Address 75 [facility] 7t [place] [address] Care Team Providers Care Supervisor Vacuum Metalizing Name Role Phone Jessi Dueñas MD Primary Care Provider [phone] Reason for Visit * Reason Onset Date Comments Nurse Triage 02/07/2023 Encounter Details Date Type Department Care Team ([facility] st Contact Info) Description 02/07/2023 Telephone [facility] MEDICINE [address] [place] [address] Jessi Dueñas MD [address] [place] [address] Nurse Triage Social History Tobacco Use Types Packs/Day Years Used Date Smoking Tobacco: Never Passive Smoke Exposure: Never Smokeless Tobacco: Never Alcohol Use Standard Drinks/Week Comments Never 0 (1 standard drink = 0.6 oz pur e alcohol) Depression Answer Date Recorded Patient Health Questionnaire-9 Score 20 01/04/2023 Housing Stability Answer Date Recorded What is your housing situation today? I have bola john 01/17/[address] you li ve. Do you have problems with any of the following? None of the above 01/17/2023 Food Insecurity Answer Date Recorded Within the past 12 months, y ou worried that your food would run out before you got money to buy more: Never True 01/17/2023 Within the past 12 months,th e food you bought just didn't last and you didn't have enough money to get more: Never True Transportation Answer Date Recorded In the past [...] encounter Miscellaneous Notes * Telephone Encounter - Kristen Castillo RN - 02/07/2023 11:26 AM EST Triage call with [place] Watch Assembly Inspector ID [id number] Pt reports ED visit @ [facility] 02/06/23 for abdominal pain and migraines. Report is requested from [facility] clinical hearing healthcare practitioner. Pt reports was supposed to be getting a scan but, BP was too low. ED visit showed low potassium and Pt was given IV hydration per Pt information. Pt continues to have chronic abdominal pain and migraine headaches which come and go sometimes for 3 days at a time. Pt reportssome diarrhea as well unclear as to when this occurred and for how long but, no diarrhea today at time of call. Apt with Dr. Dueñas 02/17/23 @ 315pm to review Ed recs which Pt reports is an order for IV vitamins to be given regularly. Insurance is verified as active prior to booking Multiple (2) protocols were used on this call. Disposition for Call: See in Office or Video Visit within 2 Weeks Protocol Used: Abdominal Pain - Female (Adult) Protocol-Based Disposition: See in Office or Video Visit within 2 Weeks Positive Triage Question: * Abdominal pain is a chronic symptom (recurrent or ongoing AND lasting > 4 weeks) * All higher-acuity triage questions were negative Care Advice Discussed: * Reassurance and Education - Stomach Pain * Rest * Drink Clear Fluids * Pass a Stool * Reasons To Call Back - Severe pain lasts over 1 hour - Constant pain lasts over 2 hours - Intermittent pains (e.g., comes and goes, cramps) lasts over 48 hours - You are - You become worse Protocol Used: Headache (Adult) Protocol-Based Disposition: See in Office or Video Visit within 2 Weeks Video visit not offered Positive Triage Question: * Headache is a chronic symptom (recurrent or ongoing AND lasting > 4 weeks) * All higher-acuity triage questions were negative Care Advice Discussed: * Reassurance and Education - Migraine Headache * Pain Medicines * Rest for Headache * Cold Pack for Headache * Stretching * Reasons To Call Back - Severe headache persists over 2 hours after pain medicine - Headache lasts over 24 hours despite using a pain medicine - You become worse * Telephone Encounter - Jose R Juan - 02/07/2023 10:22 AM EST Symptom: Abdominal Pain - Female - Not and migraine Outcome: Schedule an urgent appointment (within 4 hours) or talk to a nurse or provider soon Reason: Getting worse The caller accepted this outcome Tc from patient calling in regards to migraine and abdominal pain also lower back pain states she went to [facility] last on 02/06 and did nothing. Patient speaks moldovan documented in this encounter Plan of Treatment Upcoming Encounters Date Type Department Care Team (Late st Contact Info) Description 05/17/2024 11:00 AM EST Office Visit [facility] MEDICINE [address] [place] [address] Jessi Dueñas MD [address] [place] [address] documented as of this encounter Visit Diagnoses Not on filedocumented in this encounter Additional Health Concerns Assessment Noted Time PHQ-9 Depression Total Score: 20 023 9:49 AM EDT documented as of this encounter Care Teams Supervisor Vacuum Metalizing Relationship Specialty Start Date End Date Jessi Dueñas MD [address] [place] [address] PCP - General Family Medicine 11/24/20 Mikayla Bhagat Sticker OperatorManager Environmental 05/09/23 documented as of this encounter
--- OUTSIDE RECORDS SUMMARY | 2024-05-17 08:36 | XMS_ITS | Encounter Summary ---
Author Organization [employer] Address [address] [facility] [address] 7t [place] [address] Care Team Providers Care Manager Decision Support Name Role Phone Jessi Dueñas MD Primary Care Provider [phone] Encounter Details Date Type Department Care Team ([facility] st Contact Info) Description 02/08/2023 Telephone [facility] MEDICINE [address] [place], [place] [phone] Jessi Dueñas MD [address] [place], [place] [phone] Social History Tobacco Use Types Packs/Day Years [...] Description 05/17/2024 11:00 AM EST Office Visit [facility] MEDICINE [address] [place] [address] Jessi Dueñas MD [address] [place] [address] documented as of this encounter Visit Diagnoses Not on filedocumented in this encounter Additional Health Concerns Assessment Noted Time PHQ-9 Depression Total Score: 20 023 9:49 AM EDT documented as of this encounter Care Teams Manager Decision Support Relationship Specialty Start Date End Date Jessi Dueñas MD [address] [place] [address] PCP - General Family Medicine 11/24/20 Mikayla Bhagat Demolition Crane OperatorNeuropsychology Division Chief 05/09/23 documented as of this encounter
--- OUTSIDE RECORDS SUMMARY | 2024-05-17 08:36 | XMS_ITS | Encounter Summary ---
Author Organization [employer] Address 75 [facility] 7 [place] [address] Care Team Providers Care Pediatric Dental Hygienist Name Role Phone Jessi Dueñas MD Primary Care Provider [phone] Reason for Visit * Reason Onset Date Comments Referral 04/11/2024 Encounter Details Date Type Department Care Team ([facility] st Contact Info) Description 04/11/2024 Telephone [facility] MEDICINE [address] [place] [address] Jessi Dueñas MD [address] [place] [address] Referral Social History Tobacco Use Types Packs/Day Years [...] encounter Miscellaneous Notes * Telephone Encounter - Mary Hurtado RN - 04/17/2024 11:46 AM EST TC placed to patient [phone] in regards to below message. RN spoke to patient and BED BUG EXTERMINATOR at the same time during the call (BED BUG EXTERMINATOR translated). Patient advised PT referral has been placed to [facility] for bilateral hand pain, bilateral knee pain and back pain. Patient advised of other recommendations (acupuncture and chronic pain group) however patient would like to trial PT first. Patient advised once referral is processed, patient will receive a letter in the mail with phone number to call and schedule PT. Patient and BED BUG EXTERMINATOR verbalized understanding. * Telephone Encounter - Mary Hurtado RN - 04/11/2024 12:40 PM EST TC placed to patient [phone] in regards to below message. Patient reports she would like PT for her bilateral knees, bilateral hands, and low back pain. Patient is requesting referral to be placed to [facility] at [address] [place] [address] in [place], [place]. Patient reports she is frustrated with her care as she continues to be referred to specialists and continues to have imaging however her s/s are not improving. Patient reports she was seen today by [facility] ortho and OV note states: She completed formal physical therapy which seemed to aggravate her pain. RN inquired if patients was PT again for her bilateral knees as it made her pain worse in the past. Patient reports she was was told by [facility] ortho to come to PCP office and request PT referral for bilateral hands, bilateral knees and back pain specifically to [facility] at [address] [place] [address] in [place], [place]. RN explained ortho OV note does not mention PT plan however reports patient is to have MRI of knee and will return to office after results are received for further discussion of POC. Patient report chico stanley is telling her something different. Patients BED BUG EXTERMINATOR then came on the phone and confirmed what thepatient was saying is accurate. Per chart review, on problem list is listed low back pain since 2020 and OV note from 03/05/24 discussing hand pain (patient had Xrays of hands which returned WNL (no fractures and no arthritis). BED BUG EXTERMINATOR advised RN would send message to PCP to advise on PT referral requests. Please advise. * Telephone Encounter - Kassie Cormier - 04/11/2024 11:59 AM EST Pt walked in stating she was seen by ortho today and was recommended to ask pcp for physical therapy for both arms and legs also back. Pt was given a place to go but didn't have information on hand so she will call or come back to give us the name and address of the location. Pt stated or pcp can choose the office for physical therapy just not [facility]. Pt came back in to request referral be [facility] @[address] [place] [address]. documented in this encounter Plan of Treatment Upcoming Encounters Date Type Department Care Team (Late st Contact Info) Description 05/17/2024 11:00 AM EST Office Visit [facility] MEDICINE [address] [place] [address] Jessi Dueñas MD [address] [place] [address] documented as of this encounter Visit Diagnoses Not on filedocumented in this encounter Additional Health Concerns Assessment Noted Time PHQ-9 Depression Total Score: 8 09/19/19 24 11:07 AM EDT documented as of this encounter Care Teams Pediatric Dental Hygienist Relationship Specialty Start Date End Date Jessi Dueñas MD [address] [place] [address] PCP - General Family Medicine 11/24/20 Mikayla Bhagat Ornamental Metal Worker HelperLearning Engineer 05/09/23 documented as of this encounter
--- OUTSIDE RECORDS SUMMARY | 2024-05-17 08:36 | XMS_ITS | Encounter Summary ---
Author Organization [employer] [facility] Address 75 [facility] 7t [place] [address] Care Team Providers Care Wood Machine Carver Name Role Phone Jessi Dueñas MD Primary Care Provider [phone] Reason for Visit * Reason Onset Date Comments [facility] Disposable Unde rpad/Chux Large Encounter Details Date Type Department Care Team ([facility] st Contact Info) Description 05/13/2024 Telephone [facility] [address] [place] [address] Jessi Dueñas MD [address] [place] [address] [facility] (Disposable Underpad/Chux Large) Social History Tobacco Use Types Packs/Day Years [...] encounter Miscellaneous Notes * Telephone Encounter - Julian Slater MA - 05/14/2024 11:13 AM EST Medical necessity for has been signed by the PCP and faxed to [employer]. It is now sent in for scanning. * Telephone Encounter - Julian Slater MA - 05/13/2024 9:59 AM EST Received medical necessity form from [employer] for Disposable Underpad/Chux Large. Form has been filledout and placed on PCP's desk for signature. documented in this encounter Plan of Treatment Upcoming Encounters Date Type Department Care Team (Late st Contact Info) Description 05/17/2024 11:00 AM EST Office Visit [facility] [address] [place] [address] Jessi Dueñas MD [address] [place] [address] documented as of this encounter Visit Diagnoses Not on filedocumented in this encounter Additional Health Concerns Assessment Noted Time PHQ-9 Depression Total Score: 8 09/19/19 24 11:07 AM EDT documented as of this encounter Care Teams Wood Machine Carver Relationship Specialty Start Date End Date Jessi Dueñas MD [address] [place] [address] PCP - General Family Medicine 11/24/20 Mikayla Bhagat Animal Cruelty Investigation SupervisorFloors Buffer 05/09/23 documented as of this encounter
--- OUTSIDE RECORDS SUMMARY | 2024-05-17 08:36 | XMS_ITS | Encounter Summary ---
Author Organization [employer] [facility] Address 75 [facility] 7 [place] [address] Care Team Providers Care Orthodontist Small Business Owner Name Role Phone Jessi Dueñas MD Primary Care Provider [phone] Reason for Visit * Reason Onset Date Comments Results 05/23/2023 Encounter Details Date Type Department Care Team ([facility] st Contact Info) Description 05/23/2023 Telephone [facility] MEDICINE [address] [place] [address] Jessi Dueñas MD [address] [place] [address] Results Social History Tobacco Use Types Packs/Day Years [...] encounter Miscellaneous Notes * Telephone Encounter - Yumiko Whitaker RN - 05/24/2023 5:03 PM EST T/C to pt. For below message through inmobly id - [id number], pt. Informed regarding normal x-ray result. pt. States she is still have pain, advised to come to walk in center but denies. Pt. Also wants to discuss requirement of vitamins for her, states everyone took vitamins and I also wants vitamin. Pt. Wants to schedule apt. To discuss her vitamin concerns and for pain concerns. Pt. Schedule for apt. With PCP on 06/05/2023. Pt. Also advised to go to nearest ED in case of any new or worsening symptoms. [facility] hours are reviewed. Pt. Verbally agreed and understood. * Telephone Encounter - Paco Sylvester - 05/24/2023 3:59 PM EST Tc from pt returning call. Please contact at [phone] * Telephone Encounter - Yumiko Whitaker RN - 05/24/2023 12:47 PM EST Return T/C to pt. For bellow message Normal x-ray result. No answer. LVM to call back on [phone]. * Telephone Encounter - Bran Parker - 05/23/2023 4:41 PM EST TC from pt requesting call back regarding Results. Type of results: X-Ray Date when done: 05/16/23 Facility: [facility] documented in this encounter Plan of Treatment Upcoming Encounters Date Type Department Care Team (Late st Contact Info) Description 05/17/2024 11:00 AM EST Office Visit [facility] MEDICINE [address] [place] [address] [phone] Jessi Dueñas MD [address] [place], [place] [phone] documented as of this encounter Visit Diagnoses Not on filedocumented in this encounter Additional Health Concerns Assessment Noted Time PHQ-9 Depression Total Score: 20 023 9:49 AM EDT documented as of this encounter Care Teams Orthodontist Small Business Owner Relationship Specialty Start Date End Date Jessi Dueñas MD [address] [place] [address] PCP - General Family Medicine 11/24/20 Mikayla Bhagat Government ClerkEnvelope Sealing Machine Operator 05/09/23 documented as of this encounter
--- OUTSIDE RECORDS SUMMARY | 2024-05-17 08:36 | XMS_ITS | Encounter Summary ---
Author Organization [employer] Address 75 [facility] 7t [place] [address] Care Team Providers Care Shot Core Drill Operator Helper Name Role Phone Jessi Dueñas MD Primary Care Provider [phone] Encounter Details Date Type Department Care Team ([facility] st Contact Info) Description 05/18/2023 Telephone [facility] MEDICINE [address] [place], [place] [phone] Jessi Dueñas MD [address] [place], [place] [phone] Social History Tobacco Use Types Packs/Day Years [...] encounter Miscellaneous Notes * Telephone Encounter - Kavya Lopez RN - 05/18/2023 8:48 AM EST MAILING MACHINE ASSISTANT referral made to [facility], referral form faxed with confirmation of receipt. documented in this encounter Plan of Treatment Upcoming Encounters Date Type Department Care Team (Late st Contact Info) Description 05/17/2024 11:00 AM EST Office Visit [facility] MEDICINE [address] [place] [address] Jessi Dueñas MD [address] [place] [address] documented as of this encounter Visit Diagnoses Not on filedocumented in this encounter Additional Health Concerns Assessment Noted Time PHQ-9 Depression Total Score: 20 023 9:49 AM EDT documented as of this encounter Care Teams Shot Core Drill Operator Helper Relationship Specialty Start Date End Date Jessi Dueñas MD [address] [place] [address] PCP - General Family Medicine 11/24/20 Mikayla Bhagat Breastfeeding Program CoordinatorSpring Tacker 05/09/23 documented as of this encounter
--- OUTSIDE RECORDS SUMMARY | 2024-05-17 08:36 | XMS_ITS | Encounter Summary ---
Author Organization [employer] Address [address] [facility] 7t [place] [address] Care Team Providers Care Market Research Consultant Name Role Phone Jessi Dueñas MD Primary Care Provider [phone] Reason for Visit * Reason Onset Date Comments [facility] 05/02/2024 Disposable unde rpad, large1 unit = each, 248 per mo. Encounter Details Date Type Department Care Team ([facility] st Contact Info) Description 05/02/2024 Telephone [facility] [address] [place] [address] Jessi Dueñas MD [address] [place] [address] [facility] (Disposable underpad, large/1 unit = each, 248 per mo.) Social History Tobacco Use Types Packs/Day Years [...] the past 12 months, has t he [place], gas, oil or water company threatened to [...] Telephone Encounter - Julian Slater [place] - 05/02/2024 9:50 AM EST Received medical necessity form from [employer] for Disposable underpad (large). Form has been placed on PCP's desk for signature. documented in this encounter Plan of Treatment Upcoming Encounters Date Type Department Care Team (Late st Contact Info) Description 05/17/2024 11:00 AM EST Office Visit [facility] [address] [place] [address] Jessi Dueñas MD [address] [place] [address] documented as of this encounter Visit Diagnoses Not on filedocumented in this encounter Additional Health Concerns Assessment Noted Time PHQ-9 Depression Total Score: 8 09/19/19 24 11:07 AM EDT documented as of this encounter Care Teams Market Research Consultant Relationship Specialty Start Date End Date Jessi Dueñas MD [address] [place] [address] PCP - General Family Medicine 11/24/20 Mikayla Bhagat Assistant ParalegalScientific Publications Editor 05/09/23 documented as of this encounter
--- OUTSIDE RECORDS SUMMARY | 2024-05-17 08:37 | XMS_ITS | Encounter Summary ---
Author Organization [employer] [facility] Address [address] [facility] 7t [place] [address] Care Team Providers Care Parts Counter Representative Name Role Phone Jessi Dueñas MD Primary Care Provider [phone] Encounter Details Date Type Department Care Team (Late Contact Info) Description 03/29/2022 Orders Only [facility] [address] [place] [address] eJssi Dueñas MD [address] [place] [address] [phone] Choking episode occurring at night (Primary Dx) Social History Tobacco Use Types Packs/Day Years Used Date Smoking Tobacco: Never Smokeless Tobacco: Never Alcohol Use Standard Drinks/Week Comments Never 0 (1 standard drink = 0.6 oz pur e alcohol) Comments Unknown Sex and Gender Information Value Date Recorded Sex Assigned at Female 01/31/2022 10:21 AM EDT Legal Sex Female 10:21 AM EDT Gender Identity Female 01/31/2022 10:21 AM EDT Sexual Orientation Straight 01/31/2022 10 :21 AM EDT COVID-19 Exposure Response Date Recorded In the last 10 days, have yo u been in contact with someone who was confirmed or suspected to have Coronavirus/COVID-19? No / Unsure 03/23/2022 3:26 PM EST documented as of this encounter Plan of Treatment Upcoming Encounters Date Type Department Care Team (Late Contact Info) Description 05/17/2024 11:00 AM EST Office Visit [facility] [address] [place] [address] [phone] Jessi Dueñas MD [address] [place] [address] documented as of this encounter Visit Diagnoses Diagnosis Choking episode occurring at night- Primary documented in this encounter Care Teams Parts Counter Representative Relationship Specialty Start Date End Date Jessi Dueñas MD [address] [place], [place] [phone] PCP - General Family Medicine 11/24/20 Mikayla Bhagat Injection MolderNeuro Intensivist Physician 05/09/23 documented as of this encounter
--- OUTSIDE RECORDS SUMMARY | 2024-05-17 08:37 | XMS_ITS | Encounter Summary ---
Author Organization [employer] Address [address] [facility] 7 [place] [address] Care Team Providers Care Network Operations Analyst Name Role Phone Jessi Dueñas MD Primary Care Provider [phone] Reason for Visit * Reason Comments Med Refill Encounter Details Date Type Department Care Team ([facility] st Contact Info) Description 10/25/2023 Refill [facility] [address] [place] [address] Anita Arriaga MD [address] [place] [address] Social History Tobacco Use Types Packs/Day Years [...] Description 05/17/2024 11:00 AM EST Office Visit [facility] [address] [place] [address] Jessi Dueñas MD [address] [place] [address] documented as of this encounter Visit Diagnoses Not on filedocumented in this encounter Additional Health Concerns Assessment Noted Time PHQ-9 Depression Total Score: 8 09/19/19 24 11:07 AM EDT documented as of this encounter Care Teams Network Operations Analyst Relationship Specialty Start Date End Date Jessi Dueñas MD [address] [place] [address] PCP - General Family Medicine 11/24/20 Mikayla Bhagat Wood Milling Machine HandLead Nuclear Medicine Technologist 05/09/23 documented as of this encounter
--- OUTSIDE RECORDS SUMMARY | 2024-05-17 08:37 | XMS_ITS | Encounter Summary ---
Author Organization [employer] [facility] Address [address] [facility] 7t [place] [address] Care Team Providers Care Flake Miller Wheat [employer] Oats Name Role Phone Jessi Dueñas MD Primary Care Provider [phone] Reason for Visit * Reason Onset Date Comments Call Back Request 01/23/2024 Encounter Details Date Type Department Care Team ([facility] Contact Info) Description 01/23/2024 Telephone [facility] [address] [place], [place] [phone] Jessi Dueñas MD [address] [place], [place] [phone] Call Back Request Social History Tobacco Use Types Packs/Day Years [...] encounter Miscellaneous Notes * Telephone Encounter - rBan Parker - 01/23/2024 4:13 PM EDT Tc from pt requesting call back regarding appt today stating pcp was supposed to send medication today but she was informed by the pharmacy that there were no scripts sent. Please contact pt at [phone]. (Lao Speaker) documented in this encounter Plan of Treatment Upcoming Encounters Date Type Department Care Team (Late st Contact Info) Description 05/17/2024 11:00 AM EST Office Visit [facility] [address] [place] [address] Jessi Dueñas MD [address] [place] [address] documented as of this encounter Visit Diagnoses Not on filedocumented in this encounter Additional Health Concerns Assessment Noted Time PHQ-9 Depression Total Score: 8 09/19/19 24 11:07 AM EDT documented as of this encounter Care Teams Flake [employer] Wheat [employer] Oats Relationship Specialty Start Date End Date Jessi Dueñas MD [address] [place] [address] PCP - General Family Medicine 11/24/20 Mikayla Bhagat Factory Process WorkersCut Lace Machine Operator 05/09/23 documented as of this encounter
--- OUTSIDE RECORDS SUMMARY | 2024-05-17 08:37 | XMS_ITS | Encounter Summary ---
Author Organization [facility] Address [address] [facility] 7 [place] [address] Care Team Providers Care Compressed Gas Equipment Mechanic Name Role Phone Jessi Dueñas MD Primary Care Provider [phone] Reason for Visit * Reason Onset Date Comments Appointment Request 12/27/2022 Encounter Details Date Type Department Care Team ([facility] st Contact Info) Description 12/27/2022 Telephone [facility] [address] [place] [address] Jessi Dueñas MD [address] [place] [address] Appointment Request Social History Tobacco Use Types Packs/Day [...] encounter Miscellaneous Notes * Telephone Encounter - Paco Sylvester - 12/27/2022 10:43 AM EDT Tc from pt requesting a follow up appt per last office with PCP 08/24/22 ( follow up : 3 months or sooner ) screen writer attempted to schedule however zero availability, pt is irate and stated has been waiting for an appt. Please contact for clarification. Please contact at [phone] Welsh documented in this encounter Plan of Treatment Upcoming Encounters Date Type Department Care Team (Late st Contact Info) Description 05/17/2024 11:00 AM EST Office Visit [facility] [address] [place] [address] Jessi Dueñas MD [address] [place] [address] documented as of this encounter Visit Diagnoses Not on filedocumented in this encounter Additional Health Concerns Assessment Noted Time PHQ-9 Depression Total Score: 19 023 2:59 PM EST documented as of this encounter Care Teams Compressed Gas Equipment Mechanic Relationship Specialty Start Date End Date Jessi Dueñas MD [address] [place] [address] PCP - General Family Medicine 11/24/20 Mikayla Bhagat Director Of Advertising SalesSpoon Maker 05/09/23 documented as of this encounter
--- OUTSIDE RECORDS SUMMARY | 2024-05-17 08:37 | XMS_ITS | Encounter Summary ---
Author Organization [facility] [facility] Address [address] [facility] 7 [place] [address] Care Team Providers Care Knot Tying Operator Name Role Phone Jessi Dueñas MD Primary Care Provider [phone] Reason for Visit * Reason Onset Date Comments Other 01/05/2023 Encounter Details Date Type Department Care Team ([facility] st Contact Info) Description 01/05/2023 Telephone [facility] [address] [place] [address] Jessi Dueñas MD [address] [place] [address] Other Social History Tobacco Use Types Packs/Day Years Used Date Smoking Tobacco: Never Passive Smoke Exposure: Never Smokeless Tobacco: Never Alcohol Use Standard Drinks/Week Comments Never 0 (1 standard drink = 0.6 oz pur e alcohol) Depression Answer Date Recorded Patient Health Questionnaire-9 Score 20 01/04/2023 Depression Answer Date Recorded Patient Health Questionnaire-2 Score 6 01/04/2023 Comments Unknown Sex and Gender Information Value Date Recorded Sex Assigned at Female 01/31/2022 10:21 AM EDT Legal Sex Female 10:21 AM EDT Gender Identity Female 01/31/2022 10:21 AM EDT Sexual Orientation Straight 01/31/2022 10 :21 AM EDT documented as of this encounter Miscellaneous Notes * Telephone Encounter - Mary Hurtado RN - 01/05/2023 12:53 PM EDT TC placed to pt [phone] to inform pt PCP sent Cymbalta to the pharmacy yesterday at [facility] for her pain. Pt reports she called [facility] pharmacy today and they told her that they did not receive the script. RN placed pt on hold and called [facility] pharmacy who confirmed they did receive the script and pt needs to bring medboxes into the pharmacy for them to update her medboxes. Pt was informed and reports she will bring her medboxes in. Pt reports she also would like a referral to PT for BOTH her knees. Pt informed RN would ask PCP to place referral if agreeable. Please review and place PT referral if agreeable d/t bilateral knee pain. Pt also requesting a new rheumatology referral d/t [facility] not speaking russian. Pt was informed PCP has placed new rheumatology referral for [facility] yesterday. Pt verbalized understanding. Pt to f/u PRN. * Telephone Encounter - Divya Frank - 01/05/2023 11:51 AM EDT Tc from pt states PCP advised her she will send a script for pain on 01/04 appointment but pt never received medication. Please contact pt at [phone] (Maldivian) documented in this encounter Plan of Treatment Upcoming Encounters Date Type Department Care Team (Late st Contact Info) Description 05/17/2024 11:00 AM EST Office Visit [facility] [address] [place] [address] Jessi Dueñas MD [address] [place] [address] documented as of this encounter Visit Diagnoses Not on filedocumented in this encounter Additional Health Concerns Assessment Noted Time PHQ-9 Depression Total Score: 20 023 9:49 AM EDT documented as of this encounter Care Teams Knot Tying Operator Relationship Specialty Start Date End Date Jessi Dueñas MD [address] [place] [phone] PCP - General Family Medicine 11/24/20 Mikayla Bhagat Assembler 1St ShiftSealer Aircraft 05/09/23 documented as of this encounter
--- OUTSIDE RECORDS SUMMARY | 2024-05-17 08:37 | XMS_ITS | Encounter Summary ---
Author Organization [employer] [facility] Address [address] [facility] 7 [place] [address] Care Team Providers Care Intermediate Accountant Name Role Phone Jessi Dueñas MD Primary Care Provider [phone] Reason for Visit * Reason Onset Date Comments Med Refill Tramadol refill denied 10/25/2023 Encounter Details Date Type Department Care Team (Late st Contact Info) Description 10/25/2023 Refill [facility] [address] [place] [address] Jessi Dueñas MD [address] [place] [address] Fibromyalgia Social History Tobacco Use Types Packs/Day [...] encounter Miscellaneous Notes * Telephone Encounter - 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 RN - 10/27/2023 12:26 PM EDT Tramadol refill denied. Received the following message from PCP today: This was meant as a one time prescription of Tramadol until she was able to start the Cymbalta forher fibromyalgia. Please book her phone visit with me or I can set a reminder to call her, when I get back from [place] and we can review this. Thank you! TC via P/I#[id number], unable to connect to the number, unable to leave message. Will forward message to PCP's M.A. to schedule a telephone appointment for patient as PCP requested. documented in this encounter Plan of Treatment Upcoming Encounters Date Type Department Care Team (Late st Contact Info) Description 05/17/2024 11:00 AM EST Office Visit [facility] [address] [place], [place] [phone] Jessi Dueñas MD [address] [place] [address] documented as of this encounter Visit Diagnoses Diagnosis Fibromyalgia Unspecified myalgia and myositis documented in this encounter Additional Health Concerns Assessment Noted Time PHQ-9 Depression Total Score: 8 09/19/19 24 11:07 AM EDT documented as of this encounter Care Teams Intermediate Accountant Relationship Specialty Start Date End Date Jessi Dueñas MD [address] [place] [address] PCP - General Family Medicine 11/24/20 Mikayla Bhagat Hazmat Truck DriverJewelry Sales 05/09/23 documented as of this encounter
--- OUTSIDE RECORDS SUMMARY | 2024-05-17 08:37 | XMS_ITS | Encounter Summary ---
Author Organization [employer] Address [address] [facility] [address] [facility] [address] 7t [place] [address] Care Team Providers Care Architectural Design Lecturer Name Role Phone Jessi Dueñas MD Primary Care Provider Encounter Details Date Type Department Care Team ([facility] st Contact Info) Description 09/22/2023 Orders Only [facility] [address] [place], [place] [phone] Jessi Dueñas MD 230 [place], [place] [phone] Social History Tobacco Use Types Packs/Day Years [...] Description 05/17/2024 11:00 AM EST Office Visit [facility] [address] [place] [address] Jessi Dueñas MD [address] [place] [phone] documented as of this encounter Visit Diagnoses Not on filedocumented in this encounter Additional Health Concerns Assessment Noted Time PHQ-9 Depression Total Score: 8 09/19/19 24 11:07 AM EDT documented as of this encounter Care Teams Architectural Design Lecturer Relationship Specialty Start Date End Date Jessi Dueñas MD [address] [place] [phone] PCP - General Family Medicine 11/24/20 Mikayla Bhagat Feed MillerManager Channel 05/09/23 documented as of this encounter
--- OUTSIDE RECORDS SUMMARY | 2024-05-17 08:37 | XMS_ITS | Encounter Summary ---
Author Organization [employer] [facility] Address [address] [facility] 7t [place] [address] Care Team Providers Care Home Health Clinical Liaison Name Role Phone Jessi Dueñas MD Primary Care Provider [phone] Encounter Details Date Type Department Care Team (Late st Contact Info) Description 10/12/2022 Orders Only [facility] MED[facility]INE [address] [place] [address] Jessi Dueñas MD [address] [place] [address] [phone] Acute bilateral low back pain, unspecified whether sciatica present (Primary Dx); Hematoma of left knee region; Sprain of left medial ankle joint, subsequent encounter Social History Tobacco Use Types Packs/Day Years Used Date Smoking Tobacco: Never Passive Smoke Exposure: Never Smokeless Tobacco: Never Alcohol Use Standard Drinks/Week Comments Never 0 (1 standard drink = 0.6 oz pur e alcohol) PHQ-2 Answer Date Recorded Patient Health Questionnaire-2 Score 4 05/30/2022 Comments Unknown Sex and Gender Information Value [...] Description 05/17/2024 11:00 AM EST Office Visit [facility] [address] [place] [address] [phone] Jessi Dueñas MD [address] [place] [address] documented as of this encounter Visit Diagnoses Diagnosis Acute bilateral low back pain, unspecified whether sciatica present- Primary Hematoma of left knee region Sprain of left medial ankle joint, subsequent encounter documented in this encounter Additional Health Concerns Assessment Noted Time PHQ-9 Depression Total Score: 19 023 2:59 PM EST documented as of this encounter Care Teams Home Health Clinical Liaison Relationship Specialty Start Date End Date Jessi Dueñas MD [address] [place] [address] PCP - General Family Medicine 11/24/20 Mikayla Bhagat Surgical AttendantFlight Radio Officer 05/09/23 documented as of this encounter
--- OUTSIDE RECORDS SUMMARY | 2024-05-17 08:37 | XMS_ITS | Encounter Summary ---
Author Organization [employer] [facility] Address [address] [facility] 7 [place] [address] Care Team Providers Care Funeral Car Driver Name Role Phone Jessi Dueñas MD Primary Care Provider [phone] Reason for Visit * Reason Onset Date Comments Referral 12/23/2022 Encounter Details Date Type Department Care Team ([facility] st Contact Info) Description 12/23/2022 Telephone [facility] MEDICINE [address] [place] [phone] Jessi Dueñas MD [address] [place] [address] Referral Social History Tobacco Use Types Packs/Day [...] encounter Miscellaneous Notes * Telephone Encounter - Divya Frank - 12/23/2022 2:56 PM EDT Tc from pt requesting a new location for rheumatology due to language barrier. States they do not have interpreters. Any questions, contact pt at [phone] (Croatian) documented in this encounter Plan of Treatment Upcoming Encounters Date Type Department Care Team (Late st Contact Info) Description 05/17/2024 11:00 AM EST Office Visit [facility] MEDICINE [address] [place] [address] Jessi Dueñas MD [address] [place], [place] [phone] documented as of this encounter Visit Diagnoses Not on filedocumented in this encounter Additional Health Concerns Assessment Noted Time PHQ-9 Depression Total Score: 19 023 2:59 PM EST documented as of this encounter Care Teams Funeral Car Driver Relationship Specialty Start Date End Date Jessi Dueñas MD [address] [place], [place] [phone] PCP - General Family Medicine 11/24/20 Mikayla Bhagat Banquet CookAccount Development Representative 05/09/23 documented as of this encounter
--- OUTSIDE RECORDS SUMMARY | 2024-05-17 08:37 | XMS_ITS | Clinical Summary ---
Author Organization [employer] Address [address] [facility] [address] [place] [address] Care Team Providers Care Glass Breaker Name Role Phone Jessi Dueñas MD Primary Care Provider [phone] Allergies Active Allergy Reactions Criticality Noted Date Comments Cat Dander 08/21/2023 Morphine Anxiety Low 03/24/2022 Shrimp Flavor Agent (Non-Screening) 08/21/2023 Medications clonazePAM (KlonoPIN) 1 MG tablet TAKE 1 TABLET BY MOUTH TWICE DAILY IN THE MORNING AND IN THE EVENING (MAY TAKE ADDITIONAL TABLET NEEDED) Active Levonorgestrel (Mirena, 52 MG,) 20 MCG/DAY intrauterine device Active pantoprazole (ProtoNix) 40 MG EC tablet Take 40 mg by mouth in the morning and at bedtime. 022 Active QUEtiapine (SEROquel) 300 MG tablet Take 300 mg by mouth at bedtime. 022 Active QUEtiapine (SEROquel) 100 MG tablet TAKE 1/2 TABLET BY MOUTH TWICE DAILY NEEDED 023 Active diphenhydrAMINE (Dahlia-Dryl) 25 MG tabletIndications :Allergic rhinitis, unspecified seasonality, unspecified trigger TAKE 1 TABLET BY MOUTH EVERY 4 TO 6 HOURS NEEDED FOR SWELLING 90 tablet 2 023 Active loperamide (Imodium) 2 MG capsule TAKE 2 CAPSULES BY MOUTH THREE TIMES DAILY NEEDED FOR LOOSE STOOL 024 Active famotidine (Pepcid) 20 MG tabletIndications :Gastroesophageal reflux disease without esophagitis TAKE 1 TABLET BY MOUTH EVERY EVENING 90 tablet 3 Active Diclofenac Sodium 1 % gel Apply 1 Application topically 2 times daily. To joints that hurt 100 g 3 Active cyproheptadine (Periactin) 4 MG tablet Take 1 tablet (4 mg) by mouth 2 times daily. For appetite 180 tablet 3 024 2024 Active imipramine (Tofranil) 50 MG tablet Take 1 tablet (50 mg) by mouth at bedtime. 30 tablet 11 024 2024 Active loratadine (Claritin) 10 MG tablet TAKE 1 TABLET BY MOUTH EVERY DAY 90 tablet 3 Active riboflavin (vitamin B2) 100 mg tablet tablet TAKE 4 TABLETS BY MOUTH ONCE DAILY 360 tablet Active ondansetron ODT (Zofran-ODT) 8 MG disintegrating tablet DISSOLVE 1 TABLET BY MOUTH EVERY TWELVE HOURS Active cholecalciferol VITAMIN D (Vitamin D-3) 50 MCG (2000 UT) tablet TAKE 1 TABLET BY MOUTH EVERY MORNING 90 tablet 3 Active montelukast (Singulair) 10 MG tablet TAKE 1 TABLET BY MOUTH EVERY EVENING FOR ASTHMA 90 tablet 3 Active 27-1 MG tablet TAKE 1 TABLET BY MOUTH EVERY MORNING 90 tablet 3 Active gabapentin (Neurontin) 300 MG capsule TAKE 1 CAPSULE BY MOUTH THREE TIMES DAILY IN THE MORNING, EVENING, AND BEDTIME 90 capsule 3 Active FLUoxetine (PROzac) 20 MG capsule Take 1 capsule (20 mg) by mouth Once per day. 90 capsule 3 024 2024 Active Mometasone Furoate (Asmanex HFA) 200 MCG/ACT aerosol INHALE 1 PUFF TWICE DAILY. RINSE MOUTH AFTER USING. 13 g 1 Active rOPINIRole (Requip) 4 MG tabletIndications :Restless leg syndrome TAKE 1 TABLET BY MOUTH AT BEDTIME 90 tablet 024 Active Lactobacillus 0.05-0.05 MG tabletIndications :Weight loss of more than 10% body weight Take 1 tablet by mouth Once per day. 90 tablet 3 Active hydrocortisone 2.5 % cream Apply around the rectum 60 g 1 01/07/2 025 Active traMADol (Ultram) 50 MG tabletIndications :Fibromyalgia Take 1 tablet (50 mg) by mouth every 12 (twelve) hours if needed for severe pain for up to 28 days. Do not start before May 02, 2024. 56 tablet 025 2024 Active fluticasone (Flonase) 50 MCG/ACT nasal sprayIndications: Allergic rhinitis, unspecified seasonality, unspecified trigger INHALE 2 SPRAYS IN EACH NOSTRIL ONCE DAILY DIRECTED 48 g 3 025 Active fluticasone (Flonase) 50 MCG/ACT nasal sprayIndications: Allergic rhinitis, unspecified seasonality, unspecified trigger USE 2 SPRAY IN EACH NOSTRIL EVERY DAY DIRECTED 48 g 3 024 2024 Discontinued traMADol (Ultram) 50 MG tabletIndications :Fibromyalgia Take 1 tablet (50 mg) by mouth every 12 (twelve) hours if needed for severe pain for up to 28 days. 56 tablet 025 2024 Discontinued(R eorder (will not trigger notification to Pharmacy)) Active Problems Problem Noted Date Diagnosed Date Fibromyalgia 09/19/2023 Overview (03/05/2024): Dx by Rheum 09/2023 She does have positive JUANITO, 1:40 titer, no other signs of autoimmune conditions Assessment & Plan (03/05/2024 3:37 PM EST): Pain is significant right now and located throughout her body, limiting all that she does. Restart Prozac 20mg Continue imipramine 50mg nightly Could not tolerate gabapentin or lyrica, per pt for nausea, dizziness, feeling of needing to move (which are all things that were present previously) Consider acupuncture, yoga, taichi Reviewed getting small amounts of exercise daily and healthy diet For three months, March 2024- May 2024, pt will be on Tramadol 50mg BID Re-evaluate after that time how additional therapies are helpign Assessment & Plan (01/29/2024 9:01 AM EDT): Pain is significant right now and located throughout her body, limiting all that she does. She is on 30mg Cymbalta right now, will increase to 40mg today. Can continue to hold Pregabalin due to concern of nerve side effects Also provide limited prn Tramadol 50mg, to be used at maximum once a day as we are increasing her to max dose Cymbalta. 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 Negative sub serologies. Normal inflammatory markers - advised to increased physical activity and recommended to f w sleep med - increase to 30mg Cymbalta, if tolerated with increase to 60mg at visit in 4-6 weeks - will add muscle relaxer for daytime as well after Cymbalta is started - counseled on limited prn use of Tramadol for sleep time. She knows not to take it with Klonopin due to risk of over-sedation. Also informed that this is for short-term only as she awaits titration of her fibromyalgia meds (Cymbalta, Imipramine, and eventually muscle relaxer) - has sleep study scheduled Assessment & Plan (11/25/2023 11:34 AM EDT): Discussed importance of exercise, yoga/bel-chi, accupuncture. She is on cymbalta, will add gabapentin. Assessment & Plan (10/06/2023 12:39 PM EDT): From veterinary manager last apt 09/2023 Labs showed low titer positive JUANITO and borderline positive rheumatoid factor. Negative sub serologies. Normal inflammatory markers - advised to increased physical activity and recommended to f w sleep med - will start Cymbalta at 20mg on Monday, increase to 40mg after 4-6 weeks - will add muscle relaxer for daytime as well after Cymbalta is started - counseled on short course 5-7 days of Tramadol for sleep time. She knows not to take it with Klonopin due to risk of over-sedation. Also informed that this is for short-term only as she awaits titration of her fibromyalgia meds (Cymbalta, Imipramine, and eventually muscle relaxer) - has sleep study scheduled Assessment & Plan (09/19/2023 6:11 PM EDT): From veterinary manager last apt 09/2023 Labs showed low titer positive JUANITO and borderline positive rheumatoid factor. Negative sub serologies. Normal inflammatory markers - advised to increased physical activity and recommended to f w sleep med -referred today to PT for chronic knee and lower back pain -pt w RLS ,loud snoring and reports apnea episodes to r/o KATHARINE -refrred today to sleep med -tylenol prn Health care maintenance 09/19/2023 Assessment & Plan (09/19/2023 6:10 PM EDT): -LMP: none since has IUD -contraception IUD -pap smear : from PCP records last done 02/2021, due in 3-5 years --pt to f w PCP next month can discuss plan for next test -MM never-- referred today -vaccines: Flu 01/2023, Covid 19 x3, last booster today, Tdap 2022 , HPV interested in vaccination -sent to her px today -labs x annual exam --advised to do tests in fasting -pt agreed to have STI testing including HIV to have for baseline -has apt already w PCP for 10/04/2023 Diarrhea of presumed infectious origin 4 Assessment & Plan (07/07/2023 8:34 AM EDT): Will check again for C diff Probiotics Small regular meals Need for home health care 05/17/2023 Assessment & Plan (05/19/2023 10:34 AM EST): She has already asked an agency to do [employer]PER[employer] evaluation To go to medical records and sign release so that we can send the order Weight loss of more than 10% body weight 023 Assessment & Plan (05/19/2023 10:33 AM EST): Ordered Boost supplement, Danilo and Dylan confirmed with [place] 05/18/23 that they submitted the prescription to and are awaiting word on insurance coverage Vitamin levels are normal, she does not need any specific supplementation but can continue daily multivitamin Assessment & Plan (02/20/2023 12:57 PM EST): Start Boost supplement Check vitamin levels to see if patient needs any specific supplementation Whole body pain 01/04/2023 Assessment & Plan (08/25/2023 9:34 AM EDT): Do not recommend use of street purchased drugs for pain Assessment & Plan (05/19/2023 10:31 AM EST): Plan to see [facility] rheumatology in June 2023, JUANITO + , whole body pain, fatigue, all worse after two episodes of C diff Still likely fibromyalgia Recommend avoidance of marijuana and cocaine, Tramadol (or other drugs) purchased on the street as these are likely exacerbating her pain and weakness Explained risks of drug-drug interactions as well with Klonopin 1mg three times a day that she is currently taking for anxiety Assessment & Plan (02/20/2023 12:59 PM EST): Will send referral to [facility] rheumatology, JUANITO + , whole body pain, fatigue, all worse after two episodes of C diff Still likely fibromyalgia Recommend avoidance of marijuana and cocaine, drugs purchased on the street Assessment & Plan (01/04/2023 7:56 PM EDT): Will send referral to [facility] rheumatology, JUANITO + , whole body pain, fatigue, all worse after two episodes of C diff Acute left ankle pain 10/27/2022 Assessment & Plan (10/27/2022 10:42 AM EDT): Likely ankle sprain, no signs of fracture, no need for XRAY PT referral Short course diclofenac ( patient reports acetaminophen/ibuprofen not helping) Acute bilateral low back pain without sciatica 0 10/27/2022 Assessment & Plan (10/27/2022 10:44 AM EDT): I also discontinue today flexeril and switch to baclofen (short curse) patient is aware of side effects, somnolence, 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 Neck pain 10/27/2022 Post concussion syndrome 08/25/2022 Assessment & Plan (05/19/2023 10:29 AM EST): CT negative in the ER With intermittent headache and vertigo She attended a few sessions of physical therapy after falling down the stairs Assessment & Plan (08/25/2022 6:50 AM EDT): CT negative in the ER With headache and vertigo ten days after injury Need to mobilize with assistance and HEP to overcome her injury Sent referral to PT Hematoma of left knee region 08/25/2022 Assessment & Plan (08/25/2022 6:49 AM EDT): About 3 x 4 cm in diamater RICE Wrapped with Chris wrap in clinic Can use diclofenac here and on lower extremity bruising Sprain of left medial ankle joint 08/25/2022 Assessment & Plan (08/25/2022 6:50 AM EDT): RICE therapy Able to bear weight Swelling is minimal Wrapped with Chris wrap Fecal incontinence 03/24/2022 Assessment & Plan (08/25/2023 9:35 AM EDT): Continue bland foods, probiotics She is not nutrient deficient per previous labs There is not access to IV electrolyte repletion in the ER except in ICU/floor patients Assessment & Plan (03/24/2022 10:08 AM EST): Concurrent with C diff infection Incontinence briefs ordered Recommend high fiber diet and probiotics Choking episode occurring at night 03/24/2022 Assessment & Plan (03/24/2022 10:09 AM EST): Will check sleep study for possible KATHARINE/apnea Acute ethmoidal sinusitis 03/10/2022 JUANITO positive 03/10/2022 Assessment & Plan (02/20/2023 12:56 PM EST): Call [facility] to get appointment at their Rheum clinic Polyarthralgia 03/10/2022 Myopia of both eyes 03/10/2022 Sinusitis 03/10/2022 Clostridioides difficile infection 01/03/2022 Assessment & Plan (05/19/2023 10:31 AM EST): Has been through Vancomycin and Dificid courses, still with alternating diarrhea and constipation Negative stool sample for 25 pathogens 05/28/22, including C diff Recommend taking Zofran and Reglan for antiemetics prior to eating and eating small amounts of bland foods Also awaiting Boost prescription Assessment & Plan (06/02/2022 1:14 PM EST): Has been through Vancomycin and Dificid courses, still with alternating diarrhea and constipation Negative stool sample for 25 pathogens 05/28/22, including C diff Will order x-large wipes for cleaning up after episodes of incontinence Assessment & Plan (03/24/2022 10:07 AM EST): Has been through Vancomycin and Dificid courses, still with diarrhea and rectal bleeding Will order briefs for fecal incontinence Will touch case with GI about plan next given persistence of symptoms (fecal transplant?) and reporting that she is vomiting blood whether an EGD is planned Low back pain 02/03/2021 Gastroesophageal reflux disease 04/03/2020 Renal colic 12/20/2017 Assessment & Plan (05/19/2023 10:29 AM EST): Renal ultrasound planned for 05/19/23 Allergic rhinitis 08/06/2014 Irritable bowel syndrome 08/06/2014 Assessment & Plan (06/02/2022 1:13 PM EST): On multiple meds already, will add Imipramine 25mg nightly for functional abdominal pain and low back MSK pain - explained that it will take time and careful eating to re-build her gut juan - recommend fermented foods, small portions of healthy foods - reassurance that she is not underweight Asthma 04/03/1957 Assessment & Plan (03/24/2022 10:10 AM EST): Continue Flovent and prn RENAE Has ENT appointment in May 2022 for nasal congestion Bipolar disorder 04/03/1957 Assessment & Plan (03/05/2024 3:34 PM EST): Continue to focus on relaxation and ease of negative thoughts and anxiety This will help with sleep and pain Restart Prozac 20mg daily Needs Qtc monitoring for antipsychotic Assessment & Plan (09/19/2023 6:09 PM EDT): PHQ8 No SI -F w psychiatrist and thereapist -will need EKG if not done recently to monitor Qtc on antipsychotics Assessment & Plan (08/25/2023 9:33 AM EDT): Continue to focus on relaxation and ease of negative thoughts and anxiety This will help with sleep and pain I could try to coordinate with her psych prescriber depending on what Rheum ends up diagnosing her with for coordination of fibromyalgia care if necessary Assessment & Plan (05/19/2023 10:34 AM EST): Continue with psych and therapist Recommend focusing her energy in addressing anxiety and this can be strongly affecting pain and GI issues Assessment & Plan (02/20/2023 12:58 PM EST): Continue with psych and therapist Assessment & Plan (06/02/2022 1:15 PM EST): Currently taking Seroquel 300mg at night and Clonazepam 1mg three times a day Symptoms of anxiety are uncontrolled, though improving with changing GI symptoms Assessment & Plan (03/24/2022 10:09 AM EST): Currently taking Seroquel 300mg at night and Clonazepam 1mg three times a day Symptoms of anxiety are uncontrolled Describing panic attacks near daily Will reach out to prescriber about other medication options Impaired fasting glucose 04/03/1957 Migraine 04/03/1957 Encounters Date Type Department Care Team Description 05/13/2024 Telephone [facility] [address] [place] [phone] Jessi Dueñas MD [email or web address] (Disposable Underpad/Chux Large) 05/12/2024 Refill [facility] [address] [place] [address] Jessi Dueñas MD Allergic rhinitis, unspecified seasonality, unspecified trigger 05/02/2024 Telephone [facility] [address] [place] [phone] Jessi Dueñas MD [facility] (Disposable underpad, large/1 unit = each, 248 per mo.) 04/29/2024 Refill [facility] [address] [place] [address] Jessi Dueñas MD Fibromyalgia 04/17/2024 Telephone [facility] [address] [place] [phone] Jessi Dueñas MD 04/17/2024 Orders Only [facility] [address] [place] [phone] Jessi Dueñas MD Acute bilateral low back pain without sciatica (Primary Dx); Polyarthralgia; Chronic pain of both knees; Bilateral hand pain 04/11/2024 Telephone [facility] [address] [place] [phone] Jessi Dueñas MD Referral 04/09/2024 11:30 AM EST Office Visit [facility] [address] [place] [phone] Jessi Dueñas MD Acute right ankle pain (Primary Dx); Weight loss of more than 10% body weight; Bipolar disorder, current episode mixed, moderate (CMS/HCC); Mild persistent asthma without complication; Incontinence of feces, unspecified fecal incontinence type; Post concussion syndrome 04/09/2024 Telephone [facility] [address] [place] [phone] Jessi Dueñas MD 04/09/2024 Telephone [facility] [address] [place] [phone] Jessi Dueñas MD Durable Medical Equipment (L&C Form: Boost) 04/09/2024 Travel 04/04/2024 Telephone [facility] [address] [place] [phone] Jessi Dueñas MD Medication Question 04/04/2024 Refill [facility] [address] [place] [phone] Jessi Dueñas MD Fibromyalgia 04/02/2024 Patient Outreach [address] [phone] Jessi Dueñas MD Pre-visit Planning ([facility] screening completed on 05/09/2023) 04/01/[address] [phone] Jessi Dueñas MD Durable Medical Equipment (L&C Form: Pull ups) 03/29/[address] [phone] Jessi Dueñas MD telephone call 03/20/[address] [phone] Jessi Dueñas MD Restless leg syndrome 03/11/[address] [phone] Muriel Severino [place] Lab Orders 03/03/[address] [address] Jessi Dueñas MD 02/28/2024 3:30 PM EST Office Visit [facility] [address] [place] [phone] Jessi Dueñas MD Hand swelling (Primary Dx); Fibromyalgia; Hematoma of left knee region; Chronic pain of both knees; Bipolar disorder, current episode mixed, moderate (CMS/HCC) 02/28/2024 Travel 02/26/[address] [phone] Jessi Dueñas MD Whole body pain 02/21/[address] [phone] Jessi Dueñas MD Medication Question 02/21/[address] [address] Amanda Collins, engine watchman Question 02/16/2024 1:00 PM EST Office Visit [facility] [address] [place] [phone] Rosario Medley MD Medication side effect, initial encounter (Primary Dx) 02/16/2024 Telephone [facility] [address] [place] [address] Becky Singh RN Appointment Request 02/16/2024 Travel 02/16/2024 Telephone [facility] [address] [place] [address] Jessi Dueñas MD Referral from Last 3 Months Immunizations Name Administration Dates Next Due HPV 9-Valent 10/26/2023,09/19/2023 Influenza Injectable Quadriv alant Preservative Free IIV4 MDCK 07/06/2021 Influenza injectable quadriv alent IIV4 with preservative 12/20/2017,02/27/2017,02/09/2016,2015 Influenza injectable quadriv alent preservative free 01/04/2023,01/24/2019 Influenza, IIV3, injectable 12/30/2010 Influenza, Split (incl. cyndi fied surface antigen) 01/21/2013,11/29/2011 Moderna Covid-19 Vaccine 12+ 07/06/2021,08/11/19,07/13/2020 Pfizer Covid-19 Vaccine 12+ 09/19/2023 Tdap 08/14/2022,04/22/2011 Family History Medical History Relation Name Comments Asthma Mother aunt 1 colon ca ,aunt 2 breast ca Mother's Sister Relation Name Status Comments Mother Mother's Sister Social History Tobacco Use Types Packs/Day Years Used Date Smoking Tobacco: Never Passive Smoke Exposure: Never Smokeless Tobacco: Never Tobacco Cessation:Counseling Given: Not Answered Alcohol Use Standard Drinks/Week Comments Never 0 [...] the past 12 months, has t he [employer], gas, oil or water [employer] threatened to shut off services in your home? No 01/17/2023 Depression Answer Date Recorded Patient Health Questionnaire-2 Score 2 09/19/2023 Comments Unknown Sex and Gender Information Value Date Recorded Sex Assigned at Female 01/31/2022 10:21 AM EDT Legal Sex Female 10:21 AM EDT Gender Identity Female 01/31/2022 10:21 AM EDT Sexual Orientation Straight 01/31/2022 10 :21 AM EDT Last Filed Vital Signs Vital Sign Reading Time Taken Comments Blood Pressure 112/70 04/09/2024 11:32 AM EST Pulse 78 04/09/2024 11:32 AM EST Temperature 36.4 ??C (97.6 ??F) 04/09/2024 11:[address] Respiratory Rate 17 04/09/2024 11:32 AM EST Oxygen Saturation 99% 02/28/2024 3:29 PM EST Inhaled Oxygen Concentration - - Weight 55.3 kg (122 lb) 04/09/2024 11:32 AM EST Height 170.2 cm (5' 7 ) 04/09/2024 11:32 AM EST Body Mass Index 19.11 04/09/2024 11:32 AM EST Plan of Treatment Upcoming Encounters Date Type Department Care Team (Late st Contact Info) Description 05/17/2024 11:00 AM EST Office Visit [facility] [address] [place] [address] Jessi Dueñas MD [address] [place] [address] Health Maintenance Due Date Last Done Comments Alcohol/Substance Use Screening 1994 Family Planning (PISQ) 1997 Hepatitis B Vaccines (1 of 3 - 19+ 3-dose series) 2001 Pneumococcal Vaccine: Pediatrics (0 to 5 Years) and At-Risk Patients (6 to 49) Years) (1 of 2 - PCV) 2001 COVID-19 Vaccine (5 - season) 2023 09/19/2023, 07/06/2021, 08/10/2020, Additional history exists Influenza Vaccine (#1) 2023 , 07/06/2021, 01/24/2019, Additional history exists Pap Smear 02/23/2024 02/22/2021 HPV Vaccines (3 - 3-dose SCDM series) 03/20/2024 10/26/2023, 09/19/2023 SDOH Screening 05/09/2024 05/09/2023 Depression Screening 09/18/2024 09/19/2023, 09/19/19 24 Tobacco Screening 04/09/2025 04/09/2024 Mammogram 09/27/2025 09/28/2023 Cervical Cancer Screening 02/22/2026 HPV/Cotest 02/22/2026 02/22/2021, 01/02, 12/14/2015 DTaP/Tdap/Td Vaccines (3 - Td or Tdap) 08/14/2032 08/14/2022, 04/22/2011 Zoster Vaccines (1 of 2) 2032 RSV Patients and Patients Aged 60 years or older (1 - 1-dose 75+ series) 2057 HIV Screening Completed 09/19/2023, 05/04, 10/23/2020, Additional history exists Hepatitis C Screening Completed 09/19/2023 , 06/29/2023, 05/18/2023, Additional history exists HIB Vaccines Aged Out No longer eligi ble based on patient's age to complete this topic Hepatitis A Vaccines Aged Out No long er eligible based on patient's age to complete this topic IPV Vaccines Aged Out No longer eligi ble based on patient's age to complete this topic Meningococcal Vaccine Aged Out No mariusz fernando eligible based on patient's age to complete this topic RSV under 20 months Aged Out No longe r eligible based on patient's age to complete this topic Rotavirus Vaccines Aged Out No longer eligible based on patient's age to complete this topic Procedures Procedure Name Priority Date/Time Associated Diagnosis Comments XR ANKLE 3+ VIEWS RIGHT Routine 04/09/2024 12:22 PM EST Acute right ankle pain XR HAND 3+ VIEWS LEFT Routine 03/04/2024 12:09 PM EST Hand swelling XR HAND 3+ VIEWS RIGHT Routine 12:09 PM EST Hand swelling BI MAMMOGRAM SCREENING TOMOSYNTHESIS BILATERAL Routine 09/28/2023 12:08 PM EDT Breast cancer screening by mammogram HEPATITIS C AB W/REFL TO HCV RNA, QN, PCR Routine 09/19/2023 12:06 PM EDT Annual physical exam HIV 1/2 ANTIGEN/ANTIBODY, FOURTH GENERATION W/RFL Routine 09/19/2023 12:06 PM EDT Annual physical exam HPV MRNA E6/E7 REFLEX TO HPV 16, 18/45 Routine 02/22/2021 12:00 AM EST THINPREP IMAGING SYSTEM PAP Routine 02/22/2021 12:00 AM EST from Last 3 Months or Most Recently Relevant to Health Maintenance Results * XR Ankle 3+ Views Right (04/09/2024 12:22 PM EST) Anatomical Region Laterality Modality Lower Extremities, Ankle Right Radiogr aphic Imaging 04/09/2024 12:2 2 PM EST Narrative 04/09/2024 12:45 PM EST ?[facility] ?[address] ?[place] [address] ?XRay Report ? Signed ? Patient: Lc Nicole,Kera ?MR#: MM ?? [id number] ? : 1980 ?Acct:[id number] ? Age/Sex: 43 / F ?ADM Date: 04/09/ ? Loc: HO.HHCX ? Attending Dr: Jessi Dueñas MD ? Ordering Physician: Jessi Dueñas ?? Date of Service: 04/09/24 ?? Procedure(s): XR ankle RT min 3V ?? Accession Number(s): [id number] ? cc: Jessi Dueñas ? EXAMINATION: ?? XR ANKLE, RIGHT ? CLINICAL INFORMATION: ?? dropped something on outside of R ankle ? COMPARISON: ?? None available. ? TECHNIQUE: ?? AP, lateral, and mortise views of the right ankle. ? FINDINGS: ?? No fracture. Alignment is anatomic. No erosions. Joint spaces are ?? maintained. Soft tissues are normal. ? XR/XR ankle RT min 3V ?? IMPRESSION: ?? Unremarkable right ankle exam. ? Electronically signed by: ??Merritt Elizalde MD ??04/09/2024 12:42 PM EST RP ? Dictated By: ?Merritt Elizalde MD ? Signed By: ?<Electronically signed by Merritt Elizalde MD in OV> ?04/09/24 1242 ? DD/ 1222 ? TD/TT: 04/09/24 1231 ? User Interface Artist: MSM ? Procedure Note Cy, Eloy - 04/09/[address] [address] XRay Report Signed Patient: Kera ArmstrongMR#: MM [id number] : 1980Acct:[id number] Age/Sex: 43 / FADM Date: 04/09/24 Loc: HO.HHCX Attending Dr: Jessi Dueñas MD Ordering Physician: Jessi Dueñas Date of Service: 04/09/24 Procedure(s): XR ankle RT min 3V Accession Number(s): [id number] cc: Jessi Dueñas EXAMINATION: XR ANKLE, RIGHT CLINICAL INFORMATION: dropped something on outside of R ankle COMPARISON: None available. TECHNIQUE: AP, lateral, and mortise views of the right ankle. FINDINGS: No fracture. Alignment is anatomic. No erosions. Joint spaces are maintained. Soft tissues are normal. XR/XR ankle RT min 3V IMPRESSION: Unremarkable right ankle exam. Electronically signed by: Merritt Elizalde MD 04/09/2024 12:42 PM EST RP Dictated By: Merritt Elizalde MD Signed By: <Electronically signed by Merritt Elizalde MD in OV> 04/09/24 1242 DD/ 1222 TD/TT: 04/09/24 1231 User Interface Artist: ALTON us Jessi Dueñas MD IMG XR PROCEDURES Edited Resul t - Final * XR Hand 3+ Views Right (03/04/2024 12:09 PM EST) Anatomical Region Laterality Modality Upper Extremities, Hand Right Radiogra phic Imaging 03/04/2024 12:0 9 PM EST Narrative 03/04/2024 4:08 PM EST ?[facility] ?[address] ?[place] [address] ?XRay Report ? Signed ? Patient: Анна Armstrongfer ?MR#: MM ?? [id number] ? : 1980 ?Acct:[id number] ? Age/Sex: 43 / F ?ADM Date: 03/04/24 ? Loc: HO.HHCX ? Attending Dr: Jessi Dueñas MD ? Ordering Physician: Jessi Dueñas ?? Date of Service: 03/04/24 ?? Procedure(s): XR hand RT min 3V ?? Accession Number(s): [id number] ? cc: Jessi Dueñas ? EXAMINATION: ?? XR HAND, RIGHT ? CLINICAL INFORMATION: ?? SWELLING ? COMPARISON: ?? Right hand x-ray on 05/15/2023 ? TECHNIQUE: ?? PA, lateral, and oblique views of the right hand. ? FINDINGS: ?? The bones and soft tissues are normal. No fracture. Alignment is ?? anatomic. Joint spaces are maintained. No erosions or soft tissue ?? calcifications. ? XR/XR hand RT min 3V ?? IMPRESSION: ?? Normal right hand. ? Electronically signed by: ??Pratibha Stevens MD ??03/04/2024 04:05 PM EST ?? RP ? Dictated By: ?Pratibha Stevens MD ? Signed By: ?<Electronically signed by Pratibha Stevens MD in OV> ? 03/04/24 1605 ? DD/ 1209 ? TD/TT: 03/04/24 1220 ? User Interface Artist: PN ? Procedure Note Donotcheyenneinterpreter, Image - 03/04/[address] [address] XRay Report Signed Patient: Kera ArmstrongMR#: MM [id number] : 1980Acct:[id number] Age/Sex: 43 / FADM Date: 03/04/24 Loc: HO.HHCX Attending Dr: Jessi Dueñas MD Ordering Physician: Jessi Dueñas Date of Service: 03/04/24 Procedure(s): XR hand RT min 3V Accession Number(s): [id number] cc: Jessi Dueñas EXAMINATION: XR HAND, RIGHT CLINICAL INFORMATION: SWELLING COMPARISON: Right hand x-ray on 05/15/2023 TECHNIQUE: PA, lateral, and oblique views of the right hand. FINDINGS: The bones and soft tissues are normal. No fracture. Alignment is anatomic. Joint spaces are maintained. No erosions or soft tissue calcifications. XR/XR hand RT min 3V IMPRESSION: Normal right hand. Electronically signed by: Pratibha Stevens MD 03/04/2024 04:05 PM EST Dictated By: Pratibha Stevens MD Signed By: <Electronically signed by Pratibha Stevens MD in OV> 03/04/24 1605 DD/ 1209 TD/TT: 03/04/24 1220 User Interface Artist: PN Jessi Dueñas MD IMG XR PROCEDURES Final Result * XR Hand 3+ Views Left (03/04/2024 12:09 PM EST) Anatomical Region Laterality Modality Upper Extremities, Hand Left Radiogra phic Imaging 03/04/2024 12:0 9 PM EST Narrative 03/04/2024 4:08 PM EST ?[facility] ?[address] ?[place] [address] ?XRay Report ? Signed ? Patient: Plattdany Nicole,Kera ?MR#: MM ?? [id number] ? : 1980 ?Acct:[id number] ? Age/Sex: 43 / F ?ADM Date: 03/04/24 ? Loc: HO.HHCX ? Attending Dr: Jessi Dueñas MD ? Ordering Physician: Jessi Dueñas ?? Date of Service: 03/04/24 ?? Procedure(s): XR hand LT min 3V ?? Accession Number(s): [id number] ? cc: Jessi Dueñas ? EXAMINATION: ?? XR HAND, LEFT ? CLINICAL INFORMATION: ?? SWELLING ? COMPARISON: ?? Left hand x-ray on 05/15/2023 ? TECHNIQUE: ?? PA, lateral, and oblique views of the left hand. ? FINDINGS: ?? The bones and soft tissues are normal. No fracture. Alignment is ?? anatomic. Joint spaces are maintained. No erosions or soft tissue ?? calcifications. ? XR/XR hand LT min 3V ?? IMPRESSION: ?? Normal left hand. ? Electronically signed by: ??Pratibha Stevens MD ??03/04/2024 04:04 PM EST ? Dictated By: ?Pratibha Stevens MD ? Signed By: ?<Electronically signed by Pratibha Stevens MD in OV> ? 03/04/24 1604 ? DD/ 1209 ? TD/TT: 03/04/24 1220 ? User Interface Artist: PN ? Procedure Note Eloy Benoit - 03/04/[address] [address] XRay Report Signed Patient: Kera ArmstrongMR#: MM [id number] : 1980Acct:[id number] Age/Sex: 43 / FADM Date: 03/04/24 Loc: HO.HHCX Attending Dr: Jessi Dueñas MD Ordering Physician: Jessi Dueñas Date of Service: 03/04/24 Procedure(s): XR hand LT min 3V Accession Number(s): [id number] cc: Jessi Dueñas EXAMINATION: XR HAND, LEFT CLINICAL INFORMATION: SWELLING COMPARISON: Left hand x-ray on 05/15/2023 TECHNIQUE: PA, lateral, and oblique views of the left hand. FINDINGS: The bones and soft tissues are normal. No fracture. Alignment is anatomic. Joint spaces are maintained. No erosions or soft tissue calcifications. XR/XR hand LT min 3V IMPRESSION: Normal left hand. Electronically signed by: Pratibha Stevens MD 03/04/2024 04:04 PM EST RP Dictated By: Pratibha Stevens MD Signed By: <Electronically signed by Pratibha Stevens MD in OV> 03/04/24 1604 DD/ 1209 TD/TT: 03/04/24 1220 User Interface Artist: DASH us Jessi Dueñas MD IMG XR PROCEDURES Final Result * BI Mammogram Screening Tomosynthesis Bilateral (09/28/2023 12:08 PM EDT) Anatomical Region Laterality Modality Breast Bilateral Mammography 09/28/2023 12:0 8 PM EDT Narrative 10/27/2023 9:20 AM EDT ? [facility] [place] ? [address] ?[place] [address] ? Mammography Report ? Signed ? Patient: Kera Armstrong ?MR#: MM ?? [id number] ? : 1980 ?Acct:[id number] ? Age/Sex: 42 / F ?ADM Date: 06/27/24 ? Loc: HO.MAMMO ? Attending Dr: Jessi Dueñas MD ? Ordering Physician: Anita Arriaga MD ?Re ?? sults: 1Negative ? Date of Service: 09/28/23 ?Follow Up: 1 Year From Orig ?? inal Mammogram ? Procedure(s): MM tomosynthesis screening BI ?? Accession Number(s): [id number] ? cc: Jessi Dueñas; Anita Arriaga MD ? EXAMINATION: ?? MM SCREENING DIGITAL BREAST TOMOSYNTHESIS, BILATERAL ? CLINICAL INFORMATION: ? Screening. Asymptomatic. ? COMPARISON: ?? Mammography: This is a baseline mammogram. ? TECHNIQUE: ?? Digital breast tomosynthesis is performed in both the craniocaudal and ?? mediolateral oblique views along with computer-aided detection (CAD). ?? Synthesized 2D images are generated from the tomosynthesis. ? FINDINGS: ?? The breasts are extremely dense, which lowers the sensitivity of ?? mammography (ACR BI-RADS breast composition Category d). ? There are no significant masses, abnormal calcifications, or other ?? abnormalities. ? MM/MM tomosynthesis screening BI ?? IMPRESSION: ?? No mammographic evidence of malignancy. ? ASSESSMENT: ? BI-RADS BI-RADS 1 - Negative ? RECOMMENDATION: ?? Routine annual mammography screening. ? 1 year F/U ? This examination should not preclude the clinical evaluation of a ?? suspicious palpable abnormality. ? This patient's information was entered into a reminder system with a ?? target due date for their next mammogram. ? Dictated By: ?Sheridan Liu MD ? Signed By: ?<Electronically signed by Sheridan Liu MD in OV> ? 10/27/23915 ? DD/ ? TD/TT: ? User Interface Artist: ? Procedure Note Cy, Eloy - 10/27/2023 [facility] [address] [place], [place] [address] Mammography Report Signed Patient: Kera ArmstrongMR#: MM [id number] : 1980Acct:[id number] Age/Sex: 42 / FADM Date: 09/28/23 Loc: HO.MAMMO Attending Dr: Jessi Dueñas MD Ordering Physician: Anita Arriaga sults: 1Negative Date of Service: 09/28/23Follow Up: 1 Year From Orig inal Mammogram Procedure(s): MM tomosynthesis screening BI Accession Number(s): [id number] cc: Jessi Dueñas; Anita Arriaga MD EXAMINATION: MM SCREENING DIGITAL BREAST TOMOSYNTHESIS, BILATERAL CLINICAL INFORMATION: Screening. Asymptomatic. COMPARISON: Mammography: This is a baseline mammogram. TECHNIQUE: Digital breast tomosynthesis is performed in both the craniocaudal and mediolateral oblique views along with computer-aided detection (CAD). Synthesized 2D images are generated from the tomosynthesis. FINDINGS: The breasts are extremely dense, which lowers the sensitivity of mammography (ACR BI-RADS breast composition Category d). There are no significant masses, abnormal calcifications, or other abnormalities. MM/MM tomosynthesis screening BI IMPRESSION: No mammographic evidence of malignancy. ASSESSMENT: BI-RADS BI-RADS 1 - Negative RECOMMENDATION: Routine annual mammography screening. 1 year F/U This examination should not preclude the clinical evaluation of a suspicious palpable abnormality. This patient's information was entered into a reminder system with a target due date for their next mammogram. Dictated By: Sheridan Liu MD Signed By: <Electronically signed by Sheridan Liu MD in OV> 10/27/23 0916 DD/ 1208 TD/TT: User Interface Artist: us Anita Roca MD IMG BI PROCEDURES Final Result * Hepatitis C Antibody with Reflex to HCV, RNA, Quantitative, Real-Time PCR (09/19/2023 12:06 PM EDT) Hepatitis C Antibody Nonreactive Nonreactive LABS Comment:Antibodies to HCV no t detected; does not exclude early acuteHCV infection. Blood Venous blood specimen / Unknown 09/19/2023 12:06 PM EDT 09/19/2023 12:58 PM EDT us Anita Roca MD LAB BLOOD ORDERAB LES Final Result Performing Organization Address City/[facility]/ZIP Co de Phone Number LABS [address] [place] [phone] * HIV-1/2 Antigen and Antibodies, Fourth Generation, with Reflexes (09/19/2023 12:06 PM EDT) Pathologist [facility] HIV AB/AG Nonreactive Nonreactive [facility] Comment:HIV-1 p24 Ag and/or HIV-1/HIV-2 Ab not detected.A test result that is nonreactive does not exclude thepossibility of exposure to or infection with HIV-1 and/orHIV-2. Nonreactive results in this assay for individualswith prior exposure to HIV-1 and/or HIV-2 may be due toantigen and antibody levels that are below the limit ofdetection of this assay.The Spotwise HIV Ag/Ab Combo assay result andsupplemental assay results should be interpreted inconjunction with the patient's clinical presentation,history and other laboratory results. If the results areinconsistent with clinical evidence, additional testing issuggested to confirm the result. Blood Venous blood specimen / Unknown 09/19/2023 12:06 PM EDT 09/19/2023 12:58 PM EDT us Anita Roca MD LAB BLOOD ORDERAB LES Final Result Performing Organization Address [facility]/ZIP Co de Phone Number LABS [address] [place] [phone] * THINPREP TIS PAP (02/22/2021 12:00 AM EST) Clinical Information: None given [facility] COMMENT SEE COMMENT [facility] Comment: EXPLANATORY NOTE: ? The Pap is a screening test for cervical cancer. It is ?? not a diagnostic test and is subject to false negative ?? and false positive results. It is most reliable when a ?? satisfactory sample, regularly obtained, is submitted ?? with relevant clinical findings and history, and when ?? the Pap result is evaluated along with historic and ?? current clinical information. ?? COMMENT: SEE COMMENT [facility] Comment: This case could not be evaluated with computer assisted technology. The slide was manually screened according to routine procedures. Fish Flipper : SEE COMMENT [facility] Comment: KN, CT(ASCP) CT screening location: [address] ??[address] Interpretation/R esult: Negative for intraepithelial lesion or malignancy. [facility] LMP: NONE GIVEN [facility] Prev. BX: NONE GIVEN [facility] Prev. PAP: NONE GIVEN [facility] SOURCE: None given [facility] Statement Of Adequacy: SEE COMMENT [facility] Comment: Satisfactory for evaluation. Endocervical/transformation zone component absent. Partially obscuring blood 02/22/2021 Jessi Dueñas MD LAB PATHOLOGY ORDERABLES Final Result [facility] [address] * HPV mRNA E6/E7 REFLEX TO HPV 16, 18/45 (02/22/2021 12:00 AM EST) HPV nRNA E6/E7 Not Detected Not Detected [facility] Comment: Methodology: Reproduction Production Manager-Mediated Amplification This assay detects E6/E7 viral messenger RNA (mRNA) from 14 high-risk HPV types (16,18,31,33,35,39,45,51,52,56,58,59,66,68). ? The analytical performance characteristics of this assay have been determined by [employer]. The modifications have not been cleared or approved by the FDA. This assay has been validated pursuant to the CLIA regulations and is used for clinical purposes. ?? For additional information, please refer to http://education.avolution.Third Brigade/faq/WCZ514u3 (This link if provided for information/ educational purposes only.) 02/22/2021 Jessi Dueñas MD LAB CYTOLOGY ORDERABLES Final Result [facility] [address] [place] [address], from Last 3 Months or Most Recently Relevant to Health Maintenance Insurance [facility] C3 HS PARTIAL Care Teams Glass Breaker Relationship Specialty Start Date End Date Jessi Dueñas MD [address] [place] [address] PCP - General Family Medicine 11/24/20 Mikayla Bhagat Director Of Corporate SponsorshipsBundle Shaker 05/09/23
--- OUTSIDE RECORDS SUMMARY | 2024-05-17 08:37 | XMS_ITS | Encounter Summary ---
Author Organization [employer] Address [address] [facility] [address] [place] [address] Care Team Providers Care Pottery Kiln Builder Name Role Phone Jessi Dueñas MD Primary Care Provider [phone] Reason for Visit * Reason Comments Med Refill Encounter Details Date Type Department Care Team ([facility] st Contact Info) Description 11/23/2023 Refill [facility] [address] [place], [place] [phone] Jessi Dueñas MD [address] [place] [address] Social History Tobacco Use Types Packs/Day Years [...] 11:00 AM EST Office Visit [facility] [address] [place] [address] Jessi Dueñas MD [address] [place] [address] documented as of this encounter Visit Diagnoses Not on filedocumented in this encounter Additional Health Concerns Assessment Noted Time PHQ-9 Depression Total Score: 8 09/19/19 24 11:07 AM EDT documented as of this encounter Care Teams Pottery Kiln Builder Relationship Specialty Start Date End Date Jessi Dueñas MD [address] [place] [address] PCP - General Family Medicine 11/24/20 Mikayla Bhagat Multifocal Lens AssemblerXerox Machine Mechanic 05/09/23 documented as of this encounter
== END 2024-05-17 09:15 | disposition home or self-care (01) ==
PROVIDERS: Visit Provider Nurse Practitioner Family
DX: R10.84 Generalized abdominal pain (principal); R11.2 Nausea with vomiting, unspecified; R63.4 Abnormal weight loss; R14.0 Abdominal distension (gaseous); R10.13 Epigastric pain; K59.01 Slow transit constipation; K21.9 Gastro-esophageal reflux disease without esophagitis; K58.0 Irritable bowel syndrome with diarrhea
CPT/HCPCS: 99214

== ENCOUNTER 2024-05-17 08:21 | Outpatient (REF) | payer MEDICAID, SELFPAY ==
--- OUTSIDE RECORDS SUMMARY | 2024-05-17 09:53 | XMS_ITS | Encounter Summary ---
Author Organization [employer] Address [address] [facility] [address] [place] [address] Care Team Providers Care Computer Network Engineer Name Role Phone Jessi Dueñas MD Primary Care Provider [phone] Reason for Referral * Consultation (Routine) - Closed Specialty Diagnoses / Procedures Referred By Contac t Referred To Contact Physical Therapy Diagnoses Acute bilateral low back pain without sciatica Chronic pain of both knees Bilateral hand pain Jessi Dueñas MD [address] [place] [address] Phone: tel: fax: [facility] [address] [facility] [address] [place], [place] Phone: tel: fax: Referral ID Status Reason Start Date Expiration Date V isits Requested Visits Authorized [id number] Closed Specialty Services Required 04/17/2024 04/17/2025 20 20 Encounter Details Date Type Department Care Team (Late st Contact Info) Description 04/17/2024 Orders Only [facility] [address] [place] [address] [phone] Jessi Dueñas MD [address] [place], [place] [phone] Acute bilateral low back pain without sciatica [...] Description 05/17/2024 11:00 AM EST Office Visit [facility] [address] [place] [address] Jessi Dueñas MD [address] [place] [address] Scheduled Referrals Name Type Priority Associated Diagnoses [...] documented as of this encounter Care Teams Computer Network Engineer Relationship Specialty Start Date End Date Jessi Dueñas MD [address] [place] [address] PCP - General Family Medicine 11/24/20 Mikayla Bhagat Currency Machine OperatorWool Classer 05/09/23 documented as of this encounter
--- OUTSIDE RECORDS SUMMARY | 2024-05-17 09:53 | XMS_ITS | Encounter Summary ---
Author Organization [employer] Address [address] [facility] [address] [place] [address] Care Team Providers Care Resource Technician Name Role Phone Jessi Dueñas MD Primary Care Provider [phone] Reason for Visit * Reason Onset Date Comments Nurse Triage 02/07/2023 Encounter Details Date Type Department Care Team ([facility] st Contact Info) Description 02/07/2023 Telephone [facility] [address] [place] [address] Jessi Dueñas MD [address] [place] [address] Nurse Triage Social History Tobacco Use Types [...] 02/07/2023 11:26 AM EST Triage call with [employer] Fire[place] ID [id number] Pt reports [place] visit @ [facility] [place] [place] 02[place]06[place]23 for abdominal pain and migraines. Report is requested from [facility] clinical life care planner. Pt reports was supposed to be getting [...] lower back pain states she went to [facility] [place] last on 02/06 and did nothing. Patient speaks rwandan documented in this encounter Plan of Treatment Upcoming Encounters Date Type Department Care Team (Late st Contact Info) Description 05/17/2024 11:00 AM EST Office Visit [facility] [address] [place] [address] Jessi Dueñas MD [address] [place] [address] documented as of this encounter Visit Diagnoses Not on filedocumented in this encounter Additional Health Concerns Assessment Noted Time PHQ-9 Depression Total Score: 20 023 9:49 AM EDT documented as of this encounter Care Teams Resource Technician Relationship Specialty Start Date End Date Jessi Dueñas MD [address] [place] [address] PCP - General Family Medicine 11/24/20 Mikayla Bhagat Gold BurnisherBroadcast Supervisor 05/09/23 documented as of this encounter
--- OUTSIDE RECORDS SUMMARY | 2024-05-17 09:53 | XMS_ITS | Encounter Summary ---
Author Organization [facility] Address [address] [facility] [address] [place] [address] Care Team Providers Care Pier Master Assistant Name Role Phone Jessi Dueñas MD Primary Care Provider [phone] Reason for Visit * Reason Onset Date Comments [facility] Disposable Unde rpad/Chux Large Encounter Details Date Type Department Care Team ([facility] st Contact Info) Description 05/13/2024 Telephone [facility] [address] [place] [address] Jessi Dueñas MD [address] [place] [address] [facility] (Disposable Underpad/Chux Large) Social History Tobacco Use [...] signed by the PCP and faxed to [employer]. It is now sent in for scanning. * Telephone Encounter - Julian Slater [place] - 05/13/2024 9:59 AM EST Received medical necessity form from [employer] for Disposable Underpad/Chux Large. Form has been filledout and placed on PCP's desk for signature. documented in this encounter Plan of Treatment Upcoming Encounters Date Type Department Care Team (Late st Contact Info) Description 05/17/2024 11:00 AM EST Office Visit [facility] [address] [place] [address] Jessi Dueñas MD [address] [place] [address] documented as of this encounter Visit Diagnoses Not on filedocumented in this encounter Additional Health Concerns Assessment Noted Time PHQ-9 Depression Total Score: 8 09/19/19 24 11:07 AM EDT documented as of this encounter Care Teams Pier Master Assistant Relationship Specialty Start Date End Date Jessi Dueñas MD [address] [place] [address] PCP - General Family Medicine 11/24/20 Mikayla Bhagat Straightening Press OperatorCotton Candy Maker 05/09/23 documented as of this encounter
--- OUTSIDE RECORDS SUMMARY | 2024-05-17 09:53 | XMS_ITS | Encounter Summary ---
Author Organization [employer] Address [address] [facility] 7 [place] [address] Care Team Providers Care Soaking Room Operator Name Role Phone Jessi Dueñas MD Primary Care Provider Reason for Visit * Reason Onset Date Comments Referral 04/11/2024 Encounter Details Date Type Department Care Team ([facility] st Contact Info) Description 04/11/2024 Telephone [facility] [address] [place] [address] Jessi Dueñas MD [address] [place] [address] Referral Social History Tobacco Use Types Packs/Day [...] 11:46 AM EST TC placed to patient [phone] in regards to below message. RN spoke to patient and IDENTIFICATION CLERK at the same time during the call (IDENTIFICATION CLERK translated). Patient advised PT referral has been placed to [facility] for bilateral hand pain, bilateral knee pain and back pain. Patient advised of other recommendations (acupuncture and chronic pain group) however patient would like to trial PT first. Patient advised once referral is processed, patient will receive a letter in the mail with phone number to call and schedule PT. Patient and IDENTIFICATION CLERK verbalized understanding. * Telephone Encounter - Mary Hurtado RN - 04/11/2024 12:40 PM EST TC placed to patient [phone] in regards to below message. Patient reports she would like PT for her bilateral knees, bilateral hands, and low back pain. Patient is requesting referral to be placed to [facility] at [address] [place] [address] in [place], [place]. Patient reports she is frustrated with her care as she continues to be referred to specialists and continues to have imaging however her s/s are not improving. Patient reports she was seen today by [facility] ortho and OV note states: She completed formal physical therapy which seemed to aggravate her pain. RN inquired if patients was PT again for her bilateral knees as it made her pain worse in the past. Patient reports she was was told by [facility] ortho to come to PCP office and request PT referral for bilateral hands, bilateral knees and back pain specifically to [facility] at [address] [place] [address] in [place], [place]. RN explained ortho OV note does not mention PT plan however reports patient is to have MRI of knee and will return to office after results are received for further discussion of POC. Patient report chico stanley is telling her something different. Patients IDENTIFICATION CLERK then came on the phone and confirmed what thepatient was saying is accurate. Per chart review, on problem list is listed low back pain since 2020 and OV note from 03/05/24 discussing hand pain (patient had Xrays of hands which returned WNL (no fractures and no arthritis). IDENTIFICATION CLERK advised RN would send message to PCP [...] the office for physical therapy just not [facility]. Pt came back in to request [facility] @[address] [place] [address]. documented in this encounter Plan of Treatment Upcoming Encounters Date Type Department Care Team (Late st Contact Info) Description 05/17/2024 11:00 AM EST Office Visit [facility] [address] [place] [address] Jessi Dueñas MD [address] [place] [address] documented as of this encounter Visit Diagnoses Not on filedocumented in this encounter Additional Health Concerns Assessment Noted Time PHQ-9 Depression Total Score: 8 09/19/19 24 11:07 AM EDT documented as of this encounter Care Teams Soaking Room Operator Relationship Specialty Start Date End Date Jessi Dueñas MD [address] [place] [address] PCP - General Family Medicine 11/24/20 Mikayla Bhagat Drywall InstallerSand Buffer 05/09/23 documented as of this encounter
--- OUTSIDE RECORDS SUMMARY | 2024-05-17 09:53 | XMS_ITS | Encounter Summary ---
Author Organization [employer] Address 75 [facility] 7t [place] [address] Care Team Providers Care Heel Seat Fitter Machine Name Role Phone Jessi Dueñas MD Primary Care Provider [phone] Reason for Visit * Reason Comments Med Refill Encounter Details Date Type Department Care Team ([facility] st Contact Info) Description 05/12/2024 Refill [facility] MED[facility]INE 230 [place], [place] [phone] Jessi Dueñas MD [address] [place], [place] [phone] Allergic rhinitis, unspecified seasonality, unspecified trigger Social [...] Description 05/17/2024 11:00 AM EST Office Visit [facility] 230 [place] [address] Jessi Dueñas MD [address] [place] [address] documented as of this encounter Visit Diagnoses Diagnosis Allergic rhinitis, unspecified seasonality, unspecified trigger documented in this encounter Additional Health Concerns Assessment Noted Time PHQ-9 Depression Total Score: 8 09/19/19 24 11:07 AM EDT documented as of this encounter Care Teams Heel Seat Fitter Machine Relationship Specialty Start Date End Date Jessi Dueñas MD [address] [place] [address] PCP - General Family Medicine 11/24/20 Mikayla Bhagat Mill ControllerSignal Operator 05/09/23 documented as of this encounter
--- OUTSIDE RECORDS SUMMARY | 2024-05-17 09:53 | XMS_ITS | Encounter Summary ---
Author Organization [employer] Address 75 [facility] 7 [place] [address] Care Team Providers Care Pool Nurse Name Role Phone Jessi Dueñas MD Primary Care Provider [phone] Reason for Visit * Reason Onset Date Comments Med Refill 04/29/2024 Encounter Details Date Type Department Care Team ([facility] st Contact Info) Description 04/29/2024 Refill [facility]INE 230 [place], [place] [phone] Jessi Dueñas MD [address] [place], [place] [phone] Fibromyalgia Social History Tobacco Use Types Packs/Day [...] 50 MG tablet To be sent to: [facility] pharmacy documented in this encounter Plan of Treatment Upcoming Encounters Date Type Department Care Team (Late st Contact Info) Description 05/17/2024 11:00 AM EST Office Visit [facility] [address] [place] [address] Jessi Dueñas MD [address] [place] [address] documented as of this encounter Visit Diagnoses Diagnosis Fibromyalgia Unspecified myalgia and myositis documented in this encounter Additional Health Concerns Assessment Noted Time PHQ-9 Depression Total Score: 8 09/19/19 24 11:07 AM EDT documented as of this encounter Care Teams Pool Nurse Relationship Specialty Start Date End Date Jessi Dueñas MD [address] [place] [address] PCP - General Family Medicine 11/24/20 Mikayla Bhagat Environmental ConsultantWildland Firefighter 05/09/23 documented as of this encounter
--- OUTSIDE RECORDS SUMMARY | 2024-05-17 09:53 | XMS_ITS | Encounter Summary ---
Author Organization [employer] Address 75 [facility] 7t [place] [address] Care Team Providers Care Marketing Manager Health Communications Name Role Phone Jessi Dueñas MD Primary Care Provider [phone] Encounter Details Date Type Department Care Team ([facility] st Contact Info) Description 05/18/2023 Telephone [facility] MED[facility]INE 230 [place], [place] [phone] Jessi Dueñas MD 230 [place], [place] [phone] Social History Tobacco Use Types Packs/Day Years [...] Lopez RN - 05/18/2023 8:48 AM EST TERRAZZO SUPERVISOR referral made to [facility], referral form faxed with confirmation of receipt. documented in this encounter Plan of Treatment Upcoming Encounters Date Type Department Care Team (Late st Contact Info) Description 05/17/2024 11:00 AM EST Office Visit [facility] [address] [place] [address] Jessi Dueñas MD 230 [place] [address] documented as of this encounter Visit Diagnoses Not on filedocumented in this encounter Additional Health Concerns Assessment Noted Time PHQ-9 Depression Total Score: 20 023 9:49 AM EDT documented as of this encounter Care Teams Marketing Manager Health Communications Relationship Specialty Start Date End Date Jessi Dueñas MD 230 [place] [address] PCP - General Family Medicine 11/24/20 iMkayla Bhagat County AgentPlant Changer 05/09/23 documented as of this encounter
--- OUTSIDE RECORDS SUMMARY | 2024-05-17 09:53 | XMS_ITS | Encounter Summary ---
Author Organization [employer] Address [address] [facility] [address] 7t [place] [address] Care Team Providers Care Billet Bed Operator Name Role Phone Jessi Dueñas MD Primary Care Provider [phone] Encounter Details Date Type Department Care Team ([facility] st Contact Info) Description 02/08/2023 Telephone [facility] MEDICINE 230 [place], [place] [phone] Jessi Dueñas MD [address] [place], [place] [phone] Social History Tobacco Use Types Packs/Day Years [...] Description 05/17/2024 11:00 AM EST Office Visit [facility] MEDICINE [address] [place] [address] Jessi Dueñas MD 230 [place] [address] documented as of this encounter Visit Diagnoses Not on filedocumented in this encounter Additional Health Concerns Assessment Noted Time PHQ-9 Depression Total Score: 20 023 9:49 AM EDT documented as of this encounter Care Teams Billet Bed Operator Relationship Specialty Start Date End Date Jessi Dueñas MD 230 [place] [address] PCP - General Family Medicine 11/24/20 Mikayla Bhagat Cereal ChemistSupervisor Prop Making 05/09/23 documented as of this encounter
--- OUTSIDE RECORDS SUMMARY | 2024-05-17 09:53 | XMS_ITS | Encounter Summary ---
Author Organization [employer] Address [address] [facility] [address] 7t [place] [address] Care Team Providers Care Civil Engineering Professor Name Role Phone Jessi Dueñas MD Primary Care Provider [phone] Encounter Details Date Type Department Care Team ([facility] st Contact Info) Description 04/17/2024 Telephone [facility] MED[facility]INE 230 [place], [place] [phone] Jessi Dueñas MD 230 [place], [place] [phone] Social History Tobacco Use Types Packs/Day Years [...] 11:00 AM EST Office Visit [facility] [address] [place] [address] Jessi Dueñas MD [address] [place] [address] documented as of this encounter Visit Diagnoses Not on filedocumented in this encounter Additional Health Concerns Assessment Noted Time PHQ-9 Depression Total Score: 8 09/19/19 24 11:07 AM EDT documented as of this encounter Care Teams Civil Engineering Professor Relationship Specialty Start Date End Date Jessi Dueñas MD [address] [place] [address] PCP - General Family Medicine 11/24/20 Mikayla Bhagat Mannequin MakerTraveling Buyer 05/09/23 documented as of this encounter
--- OUTSIDE RECORDS SUMMARY | 2024-05-17 09:53 | XMS_ITS | Encounter Summary ---
Author Organization [facility] Address [address] [facility] 7 [place] [address] Care Team Providers Care Student Truck Driver Name Role Phone Jessi Dueñas MD Primary Care Provider [phone] Reason for Visit * Reason Onset Date Comments Results 05/23/2023 Encounter Details Date Type Department Care Team ([facility] st Contact Info) Description 05/23/2023 Telephone [facility] MEDICINE 230 [place] [address] Jessi Dueñas MD [address] [place] [address] Results Social History Tobacco Use Types Packs/Day [...] T/C to pt. For below message through Review[place] id - [id number], pt. Informed regarding normal x-ray result. pt. [...] case of any new or worsening symptoms. [facility] hours are reviewed. Pt. Verbally agreed and understood. * Telephone Encounter - Paco Sylvester - 05/24/2023 3:59 PM EST Tc from pt returning call. Please contact at [phone] * Telephone Encounter - Yumiko Whitaker RN - 05/24/2023 12:47 PM EST Return T/C to pt. For bellow message Normal x-ray result. No answer. LVM to call back on [phone]. * Telephone Encounter - Bran Parker - 05/23/2023 4:41 PM EST TC from pt requesting call back regarding Results. Type of results: X-Ray Date when done: 05/16/23 Facility: [facility] documented in this encounter Plan of Treatment Upcoming Encounters Date Type Department Care Team (Late st Contact Info) Description 05/17/2024 11:00 AM EST Office Visit [facility] MEDICINE [address] [place] [phone] Jessi Dueñas MD 230 [place], [place] [phone] documented as of this encounter Visit Diagnoses Not on filedocumented in this encounter Additional Health Concerns Assessment Noted Time PHQ-9 Depression Total Score: 20 023 9:49 AM EDT documented as of this encounter Care Teams Student Truck Driver Relationship Specialty Start Date End Date Jessi Dueñas MD [address] [place] [address] PCP - General Family Medicine 11/24/20 Mikayla Bhagat Membership AssistantWoodyard Crane Operator 05/09/23 documented as of this encounter
--- OUTSIDE RECORDS SUMMARY | 2024-05-17 09:53 | XMS_ITS | Encounter Summary ---
Author Organization [employer] Address 75 [facility] 7t [place] [address] Care Team Providers Care Recreation Assistant Name Role Phone Jessi Dueñas MD Primary Care Provider [phone] Reason for Visit * Reason Onset Date Comments [facility] 05/02/2024 Disposable unde rpad, large1 unit = each, 248 per mo. Encounter Details Date Type Department Care Team ([facility] st Contact Info) Description 05/02/[address] [facility] MEDICINE 230 [place] [address] Jessi Dueñas MD [address] [place] [address] [facility] (Disposable underpad, large/1 unit = each, 248 [...] the past 12 months, has t he [email or web address], gas, oil or water company threatened to [...] AM EST Received medical necessity form from [employer] for Disposable underpad (large). Form has been placed on PCP's desk for signature. documented in this encounter Plan of Treatment Upcoming Encounters Date Type Department Care Team (Late st Contact Info) Description 05/17/2024 11:[address] EST [address] [facility] MEDICINE [address] [place] [address] Jessi Dueñas MD [address] [place] [address] documented as of this encounter Visit Diagnoses Not on filedocumented in this encounter Additional Health Concerns Assessment Noted Time PHQ-9 Depression Total Score: 8 09/19/19 24 11:07 AM EDT documented as of this encounter Care Teams Recreation Assistant Relationship Specialty Start Date End Date Jessi Dueñas MD [address] [place] [address] PCP - General Family Medicine 11/24/20 Mikayla Bhagat Etcher Printed Circuit BoardsDairy Manufacturing Technologist 05/09/23 documented as of this encounter
--- OUTSIDE RECORDS SUMMARY | 2024-05-17 09:53 | XMS_ITS | Encounter Summary ---
Author Organization [employer] Address [address] [facility] 7t [place] [address] Care Team Providers Care Executor Of Estate Name Role Phone Jessi Dueñas MD Primary Care Provider [phone] Encounter Details Date Type Department Care Team ([facility] st Contact Info) Description 01/11/2023 Orders Only [facility] MEDICINE [address] [place], [place] [phone] Jessi Dueñas MD [address] [place], [place] [phone] Chronic pain of both knees (Primary Dx) [...] Description 05/17/2024 11:00 AM EST Office Visit [facility] [address] [place] [address] Jessi Dueñas MD 230 [place] [address] documented as of this encounter Visit Diagnoses Diagnosis Chronic pain of both knees- Primary documented in this encounter Additional Health Concerns Assessment Noted Time PHQ-9 Depression Total Score: 20 023 9:49 AM EDT documented as of this encounter Care Teams Executor Of Estate Relationship Specialty Start Date End Date Jessi Dueñas MD [address] [place] [address] PCP - General Family Medicine 11/24/20 Mikayla Bhagat Carbon SetterCrack Off Person 05/09/23 documented as of this encounter
--- OUTSIDE RECORDS SUMMARY | 2024-05-17 09:54 | XMS_ITS | Encounter Summary ---
Author Organization [employer] [facility] Address [address] [facility] 7 [place] [address] Care Team Providers Care Medical Records Assistant Name Role Phone Jessi Dueñas MD Primary Care Provider [phone] Reason for Visit * Reason Onset Date Comments Appointment Request 12/27/2022 Encounter Details Date Type Department Care Team ([facility] st Contact Info) Description 12/27/2022 Telephone [facility] MEDICINE [address] [place] [address] Jessi Dueñas MD [address] [place] [address] Appointment Request Social History Tobacco Use Types [...] up : 3 months or sooner ) comic book writer attempted to schedule however zero availability, pt is irate and stated has been waiting for an appt. Please contact for clarification. Please contact at [phone] Slovenian documented in this encounter Plan of Treatment Upcoming Encounters Date Type Department Care Team (Late st Contact Info) Description 05/17/2024 11:00 AM EST Office Visit [facility] MEDICINE [address] [place] [address] Jessi Dueñas MD [address] [place] [address] documented as of this encounter Visit Diagnoses Not on filedocumented in this encounter Additional Health Concerns Assessment Noted Time PHQ-9 Depression Total Score: 19 023 2:59 PM EST documented as of this encounter Care Teams Medical Records Assistant Relationship Specialty Start Date End Date Jessi Dueñas MD [address] [place] [address] PCP - General Family Medicine 11/24/20 Mikayla Bhagat Fur OperatorConsulting Sales Executive 05/09/23 documented as of this encounter
--- OUTSIDE RECORDS SUMMARY | 2024-05-17 09:54 | XMS_ITS | Clinical Summary ---
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 apt 09/2023 Labs showed low titer [...] & Plan (09/19/2023 6:11 PM EDT): From food and drug research scientist last apt 09/2023 Labs showed low titer [...] has already asked an agency to do 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 AND 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 To go to medical records and [...] (05/19/2023 10:31 AM EST): Plan to see [facility] rheumatology in June 2023, JUANITO + , [...] 12:59 PM EST): Will send referral to [facility] rheumatology, JUANITO + , whole body pain, fatigue, all worse after two episodes of C diff Still likely fibromyalgia Recommend avoidance of marijuana and cocaine, drugs purchased on the street Assessment & Plan (01/04/2023 7:56 PM EDT): Will send referral to [facility] rheumatology, JUANITO + , whole body pain, [...] aware of side effects, somnolence, 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 Neck pain 10/27/2022 Post [...] & Plan (02/20/2023 12:56 PM EST): Call [facility] to get appointment at their Rheum clinic [...] Type Department Care Team Description 05/13/2024 Telephone [facility] [address] [place] [phone] Jessi Dueñas MD [employer] (Disposable Underpad/Chux Large) 05/12/2024 Refill [facility] [address] [place] [address] Jessi Dueñas MD Allergic rhinitis, unspecified seasonality, unspecified trigger 05/02/2024 Telephone [facility] [address] [place] [address] Jessi Dueñas MD [facility] (Disposable underpad, large/1 unit = each, 248 per mo.) 04/29/2024 Refill [facility] [address] [place] [address] Jessi Dueñas MD Fibromyalgia 04/17/2024 Telephone [facility] [address] [place] [address] Jessi Dueñas MD 04/17/2024 Orders Only [facility] [address] [place] [address] Jessi Dueñas MD Acute bilateral low back pain without sciatica (Primary Dx); Polyarthralgia; Chronic pain of both knees; Bilateral hand pain 04/11/2024 Telephone [facility] [address] [place] [address] Jessi Dueñas MD Referral 04/09/2024 11:30 AM EST Office Visit [facility] [address] [place] [address] Jessi Dueñas MD Acute right ankle pain (Primary Dx); Weight loss of more than 10% body weight; Bipolar disorder, current episode mixed, moderate (CMS/HCC); Mild persistent asthma without complication; Incontinence of feces, unspecified fecal incontinence type; Post concussion syndrome 04/09/2024 Telephone [facility] [address] [place] [address] Jessi Dueñas MD 04/09/2024 Telephone [facility] [address] [place] [address] Jessi Dueñas MD Durable Medical Equipment (L&C Form: Boost) 04/09/2024 Travel 04/04/2024 Telephone [facility] [address] [place] [address] Jessi Dueñas MD Medication Question 04/04/2024 Refill [facility] [address] [place] [address] Jessi Dueñas MD Fibromyalgia 04/02/2024 Patient Outreach [address] [address] Jessi Dueñas MD Pre-visit Planning ([facility] screening completed on 05/09/2023) 04/01/[address] [address] Jessi Dueñas MD Durable Medical Equipment (L&C Form: Pull ups) 03/29/[address] [address] Jessi Dueñas MD telephone call 03/20/[address] [address] Jessi Dueñas MD Restless leg syndrome 03/11/[address] [address] Muriel Severino [place] Lab Orders 03/03/[address] [address] Jessi Dueñas MD 02/28/2024 3:30 PM EST Office Visit [facility] [address] [place] [address] Jessi Dueñas MD Hand swelling (Primary Dx); Fibromyalgia; Hematoma of left knee region; Chronic pain of both knees; Bipolar disorder, current episode mixed, moderate (CMS/HCC) 02/28/2024 Travel 02/26/[address] [address] Jessi Dueñas MD Whole body pain 02/21/[address] [address] Jessi Dueñas MD Medication Question 02/21/[address] [address] Amanda Collins, phy therapist Question 02/16/2024 1:00 PM EST Office Visit [facility] [address] [place] [address] Rosario Medley MD Medication side effect, initial encounter (Primary Dx) 02/16/2024 Telephone [facility] [address] [place] [address] Becky Singh RN Appointment Request 02/16/2024 Travel 02/16/2024 Telephone [facility] [address] [place] [address] Jessi Dueñas MD Referral from Last 3 [...] the past 12 months, has t he [employer], gas, oil or water [employer] threatened to shut off services in your [...] Description 05/17/2024 11:00 AM EST Office Visit [facility] [address] [place] [address] Jessi Dueñas MD [address] [place] [address] Health Maintenance Due Date Last Done Comments [...] PM EST Narrative 04/09/2024 12:45 PM EST ?[facility] ?[address] ?[place] [address] ?XRay Report ? Signed ? Patient: Lc Nicole,Kera ?MR#: MM ?? [id number] ? : 1980 ?Acct:[id number] ? Age/Sex: 43 / F ?ADM Date: 04/09/ ? Loc: HO.HHCX ? Attending Dr: Jessi Dueñas MD ? Ordering Physician: Jessi Dueñas ?? Date of Service: 04/09/24 ?? Procedure(s): XR ankle RT min 3V ?? Accession Number(s): [id number] ? cc: Jessi Dueñas ? EXAMINATION: ?? [...] DD/ 1222 ? TD/TT: 04/09/24 1231 ? Photoengraving Proofer Apprentice: MSM ? Procedure Note Cy, Eloy - 04/09/[address] [address] XRay Report Signed Patient: Kera ArmstrongMR#: [id number] : 1980Acct:[id number] Age/Sex: 43 / FADM Date: 04/09/24 Loc: HO.HHCX Attending Dr: Jessi Dueñas MD Ordering Physician: Jessi Dueñas Date of Service: 04/09/24 Procedure(s): XR ankle RT min 3V Accession Number(s): [id number] cc: Jessi Dueñas EXAMINATION: XR ANKLE, RIGHT [...] 04/09/24 1242 DD/ 1222 TD/TT: 04/09/24 1231 Photoengraving Proofer Apprentice: ALTON us Jessi Dueñas MD IMG XR PROCEDURES Edited Resul t - Final * XR Hand 3+ Views Right (03/04/2024 12:09 PM EST) Anatomical Region Laterality Modality Upper Extremities, Hand Right Radiogra phic Imaging 03/04/2024 12:0 9 PM EST Narrative 03/04/2024 4:08 PM EST ?[facility] ?[address] ?[place] [address] ?XRay Report ? Signed ? Patient: Анна Armstrongfer ?MR#: MM ?? [id number] ? : 1980 ?Acct:[id number] ? Age/Sex: 43 / F ?ADM Date: 03/04/24 ? Loc: HO.HHCX ? Attending Dr: Jessi Dueñas MD ? Ordering Physician: Jessi Dueñas ?? Date of Service: 03/04/24 ?? Procedure(s): XR hand RT min 3V ?? Accession Number(s): [id number] ? cc: Jessi Dueñas ? EXAMINATION: ?? [...] DD/ 1209 ? TD/TT: 03/04/24 1220 ? Photoengraving Proofer Apprentice: PN ? Procedure Note Donotcheyenneinterpreter, Image - 03/04/[address] [address] XRay Report Signed Patient: Kera ArmstrongMR#: [id number] : 1980Acct:[id number] Age/Sex: 43 / FADM Date: 03/04/24 Loc: HO.HHCX Attending Dr: Jessi Dueñas MD Ordering Physician: Jessi Dueñas Date of Service: 03/04/24 Procedure(s): XR hand RT min 3V Accession Number(s): [id number] cc: Jessi Dueñas EXAMINATION: XR HAND, RIGHT [...] 03/04/24 1605 DD/ 1209 TD/TT: 03/04/24 1220 Photoengraving Proofer Apprentice: PN Jessi Dueñas MD IMG XR PROCEDURES Final Result * XR Hand 3+ Views Left (03/04/2024 12:09 PM EST) Anatomical Region Laterality Modality Upper Extremities, Hand Left Radiogra phic Imaging 03/04/2024 12:0 9 PM EST Narrative 03/04/2024 4:08 PM EST ?[facility] ?[address] ?[place] [address] ?XRay Report ? Signed ? Patient: Plattdany Nicole,Kera ?MR#: MM ?? [id number] ? : 1980 ?Acct:[id number] ? Age/Sex: 43 / F ?ADM Date: 03/04/24 ? Loc: HO.HHCX ? Attending Dr: Jessi Dueñas MD ? Ordering Physician: Jessi Dueñas ?? Date of Service: 03/04/24 ?? Procedure(s): XR hand LT min 3V ?? Accession Number(s): [id number] ? cc: Jessi Dueñas ? EXAMINATION: ?? [...] DD/ 1209 ? TD/TT: 03/04/24 1220 ? Photoengraving Proofer Apprentice: PN ? Procedure Note Eloy Benoit - 03/04/[address] [address] XRay Report Signed Patient: Kera ArmstrongMR#: [id number] : 1980Acct:[id number] Age/Sex: 43 / FADM Date: 03/04/24 Loc: HO.HHCX Attending Dr: Jessi Dueñas MD Ordering Physician: Jessi Dueñas Date of Service: 03/04/24 Procedure(s): XR hand LT min 3V Accession Number(s): [id number] cc: Jessi Dueñas EXAMINATION: XR HAND, LEFT [...] 03/04/24 1604 DD/ 1209 TD/TT: 03/04/24 1220 Photoengraving Proofer Apprentice: DASH us Jessi Dueñas MD IMG XR PROCEDURES Final Result * BI Mammogram Screening Tomosynthesis Bilateral (09/28/2023 12:08 PM EDT) Anatomical Region Laterality Modality Breast Bilateral Mammography 09/28/2023 12:0 8 PM EDT Narrative 10/27/2023 9:20 AM EDT ? [facility] [place] ? [address] ?[place] [address] ? Mammography Report ? Signed ? Patient: Kera Armstrong ?MR#: MM ?? [id number] ? : 1980 ?Acct:[id number] ? Age/Sex: 42 / F ?ADM Date: 06/27/24 ? Loc: HO.MAMMO ? Attending Dr: Jessi Dueñas MD ? Ordering Physician: Anita Arriaga MD ?Re ?? sults: 1Negative ? Date of Service: 09/28/23 ?Follow Up: 1 Year From Orig ?? inal Mammogram ? Procedure(s): MM tomosynthesis screening BI ?? Accession Number(s): [id number] ? cc: Jessi Dueñas; Anita Arriaga MD [...] ? 10/27/[address] ? DD/ ? TD/TT: ? Photoengraving Proofer Apprentice: ? Procedure Note Cy, Eloy - 10/27/2023 [facility] [address] [place], [place] [address] Mammography Report Signed Patient: Kera ArmstrongMR#: [id number] : 1980Acct:[id number] Age/Sex: 42 / FADM Date: 09/28/23 Loc: HO.MAMMO Attending Dr: Jessi Dueñas MD Ordering Physician: Anita Arriaga sults: 1Negative Date of Service: 09/28/23Follow Up: 1 Year From Orig inal Mammogram Procedure(s): MM tomosynthesis screening BI Accession Number(s): [id number] cc: Jessi Dueñas; Anita Arriaga MD EXAMINATION: [...] in OV> 10/27/23 0916 DD/ 1208 TD/TT: Photoengraving Proofer Apprentice: us Anita Roca MD IMG BI PROCEDURES Final Result * Hepatitis C Antibody with Reflex to HCV, RNA, Quantitative, Real-Time PCR (09/19/2023 12:06 PM EDT) Hepatitis C Antibody Nonreactive Nonreactive [facility] Comment:Antibodies to HCV no t detected; does not exclude early acuteHCV infection. Blood Venous blood specimen / Unknown 09/19/2023 12:06 PM EDT 09/19/2023 12:58 PM EDT us Anita Roca MD LAB BLOOD ORDERAB LES Final Result Performing Organization Address City/[facility] [place]/ZIP Co de Phone Number [facility] [address] [place] [phone] * HIV-1/2 Antigen and Antibodies, Fourth Generation, with Reflexes (09/19/2023 12:06 PM EDT) Pathologist [facility] HIV AB/AG Nonreactive Nonreactive [facility] Comment:HIV-1 p24 Ag and/or HIV-1/HIV-2 Ab not detected.A test result that is nonreactive does not exclude thepossibility of exposure to or infection with HIV-1 and/orHIV-2. Nonreactive results in this assay for individualswith prior exposure to HIV-1 and/or HIV-2 may be due toantigen and antibody levels that are below the limit ofdetection of this assay.The [employer] HIV Ag/Ab Combo assay result andsupplemental assay results should be interpreted inconjunction with the patient's clinical presentation,history and other laboratory results. If the results areinconsistent with clinical evidence, additional testing issuggested to confirm the result. Blood Venous blood specimen / Unknown 09/19/2023 12:06 PM EDT 09/19/2023 12:58 PM EDT us Anita Roca MD LAB BLOOD ORDERAB LES Final Result Performing Organization Address [facility]/ZIP Co de Phone Number [facility] [address] [place] [phone] * THINPREP TIS PAP (02/22/2021 12:00 [...] was manually screened according to routine procedures. [place] Station Operator : SEE COMMENT [facility] Comment: KN, CT(ASCP) CT screening location: [address] ??[id number] Interpretation/R esult: Negative for intraepithelial lesion or malignancy. [facility] LMP: NONE [facility] Prev. BX: NONE [facility] Prev. PAP: NONE [facility] SOURCE: None given [facility] Statement Of Adequacy: SEE COMMENT [facility] Comment: Satisfactory for evaluation. Endocervical/transformation zone component absent. Partially obscuring blood 02/22/2021 Jessi Dueñas MD LAB PATHOLOGY ORDERABLES Final Result [facility] [address] * HPV mRNA E6/E7 REFLEX TO HPV 16, 18/45 (02/22/2021 12:00 AM EST) HPV nRNA E6/E7 Not Detected Not Detected [facility] Comment: Methodology: Cardiac Cath Technologist-Mediated Amplification This assay detects E6/E7 viral messenger RNA (mRNA) from 14 high-risk HPV types (16,18,31,33,35,39,45,51,52,56,58,59,66,68). ? The analytical performance characteristics of this assay have been determined by [facility]. The modifications have not been cleared or approved by the FDA. This assay has been validated pursuant to the CLIA regulations and is used for clinical purposes. ?? For additional information, please refer to http://education.[employer] Access [employer]/faq/KTU997h0 (This link if provided for information/ educational purposes only.) 02/22/2021 Jessi Dueñas MD LAB CYTOLOGY ORDERABLES Final Result [facility] [address] [place] [address], from Last 3 Months or Most Recently Relevant to Health Maintenance Insurance [facility] C3 HS PARTIAL Care Teams Space Operations Relationship Specialty Start Date End Date Jessi Dueñas MD [address] [place] [address] PCP - General Family Medicine 11/24/20 Mikayla Bhagat Floorworker DistributorMastic Floor Layer 05/09/23
--- OUTSIDE RECORDS SUMMARY | 2024-05-17 09:54 | XMS_ITS | Encounter Summary ---
Author Organization [employer] Address [address] 7t [place] [address] Care Team Providers Care Regulation Supervisor Name Role Phone Jessi Dueñas MD Primary Care Provider [phone] Encounter Details Date Type Department Care Team ([facility] st Contact Info) Description 09/22/2023 Orders Only [facility] [address] [place], [place] [phone] Jessi Dueñas MD [address] [place], [place] [phone] Social History Tobacco Use Types Packs/Day Years [...] Visit [facility] [address] [place] [address] Jessi Dueñas MD [address] [place] [address] documented as of this encounter Visit Diagnoses Not on filedocumented in this encounter Additional Health Concerns Assessment Noted Time PHQ-9 Depression Total Score: 8 09/19/19 24 11:07 AM EDT documented as of this encounter Care Teams Regulation Supervisor Relationship Specialty Start Date End Date Jessi Dueñas MD [address] [place] [address] PCP - General Family Medicine 11/24/20 Mikayla Bhagat DofferTool Programmer 05/09/23 documented as of this encounter
--- OUTSIDE RECORDS SUMMARY | 2024-05-17 09:54 | XMS_ITS | Encounter Summary ---
Author Organization [employer] Address [address] [facility] 7t [place] [address] Care Team Providers Care Inspector Welded Parts Name Role Phone Jessi Dueñas MD Primary Care Provider [phone] Reason for Visit * Reason Comments Med Refill Encounter Details Date Type Department Care Team ([facility] st Contact Info) Description 11/23/2023 Refill [facility] [address] [place], [place] [phone] Jessi Dueñas MD [address] [place] [address] Social History Tobacco Use Types Packs/Day Years [...] 11:00 AM EST Office Visit [facility] [address] [place] [address] Jessi Dueñas MD [address] [place] [address] documented as of this encounter Visit Diagnoses Not on filedocumented in this encounter Additional Health Concerns Assessment Noted Time PHQ-9 Depression Total Score: 8 09/19/19 24 11:07 AM EDT documented as of this encounter Care Teams Inspector Welded Parts Relationship Specialty Start Date End Date Jessi Dueñas MD [address] [place] [address] PCP - General Family Medicine 11/24/20 Mikayla Bhagat TransplanterField Operations Manager 05/09/23 documented as of this encounter
--- OUTSIDE RECORDS SUMMARY | 2024-05-17 09:54 | XMS_ITS | Encounter Summary ---
Author Organization [employer] Address [address] [facility] 7 [place] [address] Care Team Providers Care Vineyard Tender Name Role Phone Jessi Dueñas MD Primary Care Provider [phone] Reason for Visit * Reason Comments Med Refill Encounter Details Date Type Department Care Team ([facility] st Contact Info) Description 10/25/2023 Refill [facility] [address] [place] [address] Anita Arriaga MD [address] [place] [address] Social History Tobacco Use Types Packs/Day Years [...] EST Office Visit [facility] [address] [place] [address] Jessi Dueñas MD [address] [place] [address] documented as of this encounter Visit Diagnoses Not on filedocumented in this encounter Additional Health Concerns Assessment Noted Time PHQ-9 Depression Total Score: 8 09/19/19 24 11:07 AM EDT documented as of this encounter Care Teams Vineyard Tender Relationship Specialty Start Date End Date Jessi Dueñas MD [address] [place] [address] PCP - General Family Medicine 11/24/20 Mikayla Bhagat Banking ParalegalAssociate Vice President 05/09/23 documented as of this encounter
--- OUTSIDE RECORDS SUMMARY | 2024-05-17 09:54 | XMS_ITS | Encounter Summary ---
Author Organization [employer] [facility] Address [address] [facility] 7 [place] [address] Care Team Providers Care Early Breastfeeding Care Specialist Name Role Phone Jessi Dueñas MD Primary Care Provider [phone] Reason for Visit * Reason Onset Date Comments Referral 12/23/2022 Encounter Details Date Type Department Care Team ([facility] st Contact Info) Description 12/23/2022 Telephone [facility] [address] [place] [phone] Jessi Dueñas MD [address] [place] [address] Referral Social History Tobacco Use Types Packs/Day [...] have interpreters. Any questions, contact pt at [phone] (Swedish) documented in this encounter Plan of Treatment Upcoming Encounters Date Type Department Care Team (Late st Contact Info) Description 05/17/2024 11:00 AM EST Office Visit [facility] [address] [place] [address] Jessi Dueñas MD [address] [place], [place] [phone] documented as of this encounter Visit Diagnoses Not on filedocumented in this encounter Additional Health Concerns Assessment Noted Time PHQ-9 Depression Total Score: 19 023 2:59 PM EST documented as of this encounter Care Teams Early Breastfeeding Care Specialist Relationship Specialty Start Date End Date Jessi Dueñas MD [address] [place], [place] [phone] PCP - General Family Medicine 11/24/20 Mikayla Bhagat Plating ForemanPumper Gauger 05/09/23 documented as of this encounter
--- OUTSIDE RECORDS SUMMARY | 2024-05-17 09:54 | XMS_ITS | Encounter Summary ---
Author Organization [employer] [facility] Address [address] [facility] 7 [place] [address] Care Team Providers Care Marketing Proposal Coordinator Name Role Phone Jessi Dueñas MD Primary Care Provider [phone] Reason for Visit * Reason Onset Date Comments Med Refill Tramadol refill denied 10/25/2023 Encounter Details Date Type Department Care Team (Late st Contact Info) Description 10/25/2023 Refill [facility] [address] [place] [address] Jessi Dueñas MD [address] [place] [address] Fibromyalgia Social History Tobacco Use Types Packs/Day [...] call her, when I get back from [place] and we can review this. Thank you! TC via P/I#[id number], unable to connect to the number, unable to leave message. Will forward message to PCP's M.A. to schedule a telephone appointment for patient as PCP requested. documented in this encounter Plan of Treatment Upcoming Encounters Date Type Department Care Team (Late st Contact Info) Description 05/17/2024 11:00 AM EST Office Visit [facility] [address] [place], [place] [phone] Jesis Dueñas MD [address] [place] [address] documented as of this encounter Visit Diagnoses Diagnosis Fibromyalgia Unspecified myalgia and myositis documented in this encounter Additional Health Concerns Assessment Noted Time PHQ-9 Depression Total Score: 8 09/19/19 24 11:07 AM EDT documented as of this encounter Care Teams Marketing Proposal Coordinator Relationship Specialty Start Date End Date Jessi Dueñas MD [address] [place] [address] PCP - General Family Medicine 11/24/20 Mikayla Bhagat Exchange Underwriting ConsultantDirector Medical Economics 05/09/23 documented as of this encounter
--- OUTSIDE RECORDS SUMMARY | 2024-05-17 09:54 | XMS_ITS | Encounter Summary ---
Author Organization [employer] [facility] Address [address] [facility] 7 [place] [address] Care Team Providers Care Indirect Fire Infantryman Name Role Phone Jessi Dueñas MD Primary Care Provider [phone] Reason for Visit * Reason Onset Date Comments Other 01/05/2023 Encounter Details Date Type Department Care Team ([facility] st Contact Info) Description 01/05/2023 Telephone [facility] [address] [place] [address] Jessi Dueñas MD [address] [place] [address] Other Social History Tobacco Use Types Packs/Day [...] 12:53 PM EDT TC placed to pt [phone] to inform pt PCP sent Cymbalta to the pharmacy yesterday at [facility] for her pain. Pt reports she called [facility] pharmacy today and they told her that they did not receive the script. RN placed pt on hold and called [facility] pharmacy who confirmed they did receive the [...] rheumatology referral d/t [facility] tx[facility] not speaking swiss. Pt was informed PCP has placed new rheumatology referral for [facility] yesterday. Pt verbalized understanding. Pt to f/u PRN. * Telephone Encounter - Divya Frank - 01/05/2023 11:51 AM EDT Tc from pt states PCP advised her she will send a script for pain on 01/04 appointment but pt never received medication. Please contact pt at [phone] (Tunisian) documented in this encounter Plan of Treatment Upcoming Encounters Date Type Department Care Team (Late st Contact Info) Description 05/17/2024 11:00 AM EST Office Visit [facility] [address] [place] [address] Jessi Dueñas MD [address] [place] [phone] documented as of this encounter Visit Diagnoses Not on filedocumented in this encounter Additional Health Concerns Assessment Noted Time PHQ-9 Depression Total Score: 20 023 9:49 AM EDT documented as of this encounter Care Teams Indirect Fire Infantryman Relationship Specialty Start Date End Date Jessi Dueñas MD [address] [place] [phone] PCP - General Family Medicine 11/24/20 Mikayla Bhaagt Manager AdministrativeCupola Operator 05/09/23 documented as of this encounter
--- OUTSIDE RECORDS SUMMARY | 2024-05-17 09:54 | XMS_ITS | Encounter Summary ---
Author Organization [employer] [facility] Address [address] [facility] [address] [place] [address] Care Team Providers Care Audio Visual Engineer Name Role Phone Jessi Dueñas MD Primary Care Provider [phone] Encounter Details Date Type Department Care Team (Late Contact Info) Description 03/29/2022 Orders Only [facility] [address] [place] [phone] Jessi Dueñas MD [address] [place] [address] [phone] Choking episode occurring at night (Primary Dx) [...] Description 05/17/2024 11:00 AM EST Office Visit [facility] [address] [place] [address] [phone] Jessi Dueñas MD [address] [place] [address] documented as of this encounter Visit Diagnoses Diagnosis Choking episode occurring at night- Primary documented in this encounter Care Teams Audio Visual Engineer Relationship Specialty Start Date End Date Jessi Dueñas MD [address] [place], [place] [phone] PCP - General Family Medicine 11/24/20 Mikayla Bhagat Jewel Bearing MakerAcid Splicer 05/09/23 documented as of this encounter
--- OUTSIDE RECORDS SUMMARY | 2024-05-17 09:54 | XMS_ITS | Encounter Summary ---
Author Organization [employer] [facility] Address [address] [facility] 7[address] [place] [address] Care Team Providers Care Child Care Specialist Name Role Phone Jessi Dueñas MD Primary Care Provider [phone] Reason for Visit * Reason Onset Date Comments Call Back Request 01/23/2024 Encounter Details Date Type Department Care Team ([facility] Contact Info) Description 01/23/2024 Telephone [facility] [address] [place], [place] [phone] Jessi Dueñas MD [address] [place], [place] [phone] Call Back Request Social History Tobacco Use [...] encounter Miscellaneous Notes * Telephone Encounter - Bran Parker - 01/23/2024 4:13 PM EDT Tc from pt requesting call back regarding appt today stating pcp was supposed to send medication today but she was informed by the pharmacy that there were no scripts sent. Please contact pt at [phone]. (Lao Speaker) documented in this encounter Plan of Treatment Upcoming Encounters Date Type Department Care Team (Late st Contact Info) Description 05/17/2024 11:00 AM EST Office Visit [facility] [address] [place] [address] Jessi Dueñas MD [address] [place] [address] documented as of this encounter Visit Diagnoses Not on filedocumented in this encounter Additional Health Concerns Assessment Noted Time PHQ-9 Depression Total Score: 8 09/19/19 24 11:07 AM EDT documented as of this encounter Care Teams Child Care Specialist Relationship Specialty Start Date End Date Jessi Dueñas MD [address] [place] [address] PCP - General Family Medicine 11/24/20 Mikayla Bhagat Worship PastorProject Technician 05/09/23 documented as of this encounter
--- OUTSIDE RECORDS SUMMARY | 2024-05-17 09:54 | XMS_ITS | Encounter Summary ---
Author Organization [employer] [facility] Address [address] [facility] 7[address] [place] [address] Care Team Providers Care Chief Technician Name Role Phone Jessi Dueñas MD Primary Care Provider [phone] Encounter Details Date Type Department Care Team (Late st Contact Info) Description 10/12/2022 Orders Only [facility] [address] [place] [phone] Jessi Dueñas MD [address] [place] [address] [phone] Acute bilateral low back pain, unspecified whether [...] Description 05/17/2024 11:00 AM EST Office Visit [facility] [address] [place] [address] [phone] Jessi Dueñas MD [address] [place] [address] documented as of this encounter Visit Diagnoses Diagnosis Acute bilateral low back pain, unspecified whether sciatica present- Primary Hematoma of left knee region Sprain of left medial ankle joint, subsequent encounter documented in this encounter Additional Health Concerns Assessment Noted Time PHQ-9 Depression Total Score: 19 023 2:59 PM EST documented as of this encounter Care Teams Chief Technician Relationship Specialty Start Date End Date Jessi Dueñas MD [address] [place] [address] PCP - General Family Medicine 11/24/20 Mikayla Bhagat Home SupervisorCommercial Field Inspector 05/09/23 documented as of this encounter
[2024-05-17 11:19] LABS: Alanine Aminotransferase 25 U/L (0-31); Albumin Level 4.6 g/dL (3.5-5.0); Alkaline Phosphatase 55 U/L (39-117); Aspartate Amino Transferase 26 U/L (5-31); Bilirubin Direct 0.2 mg/dL (0.0-0.5); Bilirubin Total 0.5 mg/dL (0.0-1.0); Lipase 15 U/L (8-78)
[2024-05-17 11:28] LABS: TSH reflex Free T4 1.12 uIU/mL (0.32-4.0)
[2024-05-17 11:29] LABS: HBc Num1 0.12 S/CO (0.00-0.79); HBsAGNum1 0.26 S/CO (0.00-0.99); HIV AB/AG Nonreactive (Nonreactive); HIV Num 1 0.06 S/CO (0.00-0.99); Hepatitis A Antibody IgM 0.24 Index (0-0.79); Hepatitis B Core Antibody Nonreactive (Nonreactive); Hepatitis B Surface Antigen Negative (Negative); ~HepC Num1 0.18 S/CO (0.00-0.79); ~Hepatitis A Antibody IgM Nonreactive (Nonreactive); ~Hepatitis B Surface Antibody REACTIVE (Nonreactive); ~Hepatitis C Antibody Nonreactive (Nonreactive)
[2024-05-17 11:41] LABS: Folate 15.2 ng/mL (> or = 4.0); Vitamin B12 474 pg/mL (200-900)
[2024-05-23 12:24] LABS: Vitamin D 25-OH, D2 <4 ng/mL; Vitamin D 25-OH, D3 31 ng/mL; Vitamin D 25-OH, Total 31 ng/mL (30-100)
== END 2024-05-17 08:22 | disposition home or self-care (01) ==
LOC: HO.LAB 08:21
PROVIDERS: PCP General Practice; Visit Provider Nurse Practitioner Family
DX: R10.9 Unspecified abdominal pain (principal); K59.00 Constipation, unspecified; R79.89 Other specified abnormal findings of blood chemistry; E55.9 Vitamin D deficiency, unspecified; R74.01 Elevation of levels of liver transaminase levels; R10.84 Generalized abdominal pain; R11.2 Nausea with vomiting, unspecified; R63.4 Abnormal weight loss; R14.0 Abdominal distension (gaseous); R10.13 Epigastric pain; K59.01 Slow transit constipation; K21.9 Gastro-esophageal reflux disease without esophagitis; K58.0 Irritable bowel syndrome with diarrhea
CPT/HCPCS: 36415; 80076; 82306; 82607; 82746; 83690; 84443; 86704; 86706; 86709; 86803; 87340; 87389; 99212

== ENCOUNTER 2024-05-25 22:20 | Emergency (ER) | payer MEDICAID, SELFPAY ==
[2024-05-25 23:13] VITALS: BP 106/49; PULSE 73; RESP 16; TEMP 36.6; O2SAT 100; BMI 18.3
--- NOTE | 2024-05-25 23:14 | ED.NAVMDI ---
HPI - Nausea/Vomiting/Diarrhea General Chief complaint: Nausea/Vomiting/Diarrhea Stated complaint: vomiting/diarrhea 5+days UC sent her in for fluids Time Seen by Provider: 05/26/24 01:56 Source: patient Mode of arrival: ambulatory Limitations: no limitations History of Present Illness ED Provider: Dr. Allyson Fry HPI Narrative: patient comes to the emergency room complaining of diarrhea for several years . I asked the patient if there is anything new within the last few days/ weeks that is different. Patient states that there is nothing new, all of his symptoms have been present for several years. Patient states that she came to the emergency room because she needs IV vitamins And believes that she is dehydrated. Patient states that she has been followed up by gastroenterology, she has had multiple biopsies done, both upper GI and lower GI, patient states that all have been normal. Patient states that she is never hungry and is losing weight. Related Data Home Medications ?Medication ?Instructions ?Recorded ?Confirmed cholecalciferol (vitamin D3) 50 50 mcg PO QAM 01/06/22 04/11/24 mcg (2,000 unit) tablet fluoxetine 20 mg capsule 40 mg PO QAM 01/06/22 04/11/24 fluticasone propionate 220 1 puff inhalation BID 01/06/22 04/11/24 mcg/actuation HFA aerosol inhaler (Flovent HFA) loratadine 10 mg tablet (Allergy 10 mg PO DAILY 01/06/22 04/11/24 Relief (loratadine)) montelukast 10 mg tablet 10 mg PO QPM asthma 01/06/22 04/11/24 multivitamin-iron sulfate 15 1 tab PO QAM 01/06/22 04/11/24 mg-folic acid 400 mcg tablet (Tab-A-Kisha Multivitamin w-iron) riboflavin (vitamin B2) 100 mg 400 mg PO DAILY 01/06/22 04/11/24 tablet (Vitamin B-2) ropinirole 4 mg tablet 4 mg PO BEDTIME 01/06/22 04/11/24 topiramate 25 mg tablet 25 mg PO BEDTIME 01/06/22 04/11/24 albuterol sulfate 2.5 mg/3 mL 2.5 mg inhalation Q4-6H 04/01/22 04/11/24 (0.083 %) solution for nebulization calcium carbonate (Antacid Ext Str 1 - 2 tab PO DIRECTED 04/01/22 04/11/24 (calcium carb)) clonazepam 1 mg tablet 1 mg PO TID PRN Anxiety 04/01/22 04/11/24 diphenhydramine HCl 25 mg capsule 25 - 50 mg PO BEDTIME PRN insomnia 04/01/22 04/11/24 (Banophen) quetiapine 100 mg tablet 100 mg PO BID PRN Anxiety 07/21/22 04/11/24 quetiapine 300 mg tablet 300 mg PO BEDTIME 07/21/22 04/11/24 vitamin with calcium 1 tab PO QAM 01/17/23 04/11/24 no.72-iron 27 mg-folic acid 1 mg tablet ( Vitamins Plus Low Iron) Lactobacillus acidoph-L.bulgaricus 1 tab PO QAM 05/23/23 04/11/24 1 million cell tablet levonorgestrel 21 mcg/24 hr (up to intrauterine 05/29/23 04/11/24 8 years) 52 mg intrauterine device (Mirena) mometasone 200 mcg/actuation HFA 1 puff inhalation BID 06/29/23 04/11/24 aerosol inhaler (Asmanex HFA) cyproheptadine 4 mg tablet 4 mg PO BID 04/11/24 tramadol 50 mg tablet 50 mg PO Q12H PRN severe pain 04/11/24 Previous Rx's ?Medication ?Instructions ?Recorded ibuprofen 800 mg tablet 800 mg PO Q8H PRN pain #20 tabs 03/02/21 magnesium hydroxide 400 mg/5 mL 5 ml PO BEDTIME #355 mL 04/01/22 oral suspension (Milk of Magnesia) imipramine HCl 50 mg tablet 50 mg PO BEDTIME #30 tabs 02/09/23 ondansetron 8 mg disintegrating 8 mg PO Q12H #60 tabs 11/29/23 tablet loperamide 2 mg capsule 4 mg (2 x 2 mg) PO TID PRN loose 03/13/24 stool #180 caps esomeprazole magnesium 40 mg 40 mg PO DAILY #30 caps 05/17/24 capsule,delayed release (Nexium) sennosides 8.6 mg tablet (Natural 17.2 mg (2 x 8.6 mg) PO BEDTIME 05/17/24 Senna Laxative) constipation #60 tabs sucralfate 100 mg/mL oral 10 ml PO BEDTIME #400 mL 05/17/24 suspension Allergies Allergy/AdvReac Type Severity Reaction Status Date / Time cephalexin [From Keflex] Allergy Intermediate Eye Verified 05/25/24 23:17 Swelling morphine Allergy Intermediate Itching Verified 05/25/24 23:17 shellfish derived Allergy Intermediate swelling Verified 05/25/24 23:17 [SHELLFISH DERIVED] Review of Systems Review of Systems: Constitutional : Patient reports weight loss for over a year,No Fever, No Chills, No Night Sweats, No Fatigue, No Malaise ENT/Mouth : No Hearing loss, No Ear Pain, No Nasal Congestion, No Sinus Pain, No Hoarseness, No sore throat, No Rhinorrhea, No Swallowing Difficulty Eyes: No Eye Pain, No Swelling, No Redness, No Foreign Body, No Discharge, No Vision Changes Cardiovascular : No Chest Pain, No SOB, No Dyspnea on Exertion, No Orthopnea, No Edema, No Palpitations Respiratory : No Cough, No Sputum, No Wheezing, No Smoke Exposure, No Dyspnea Gastrointestinal : No Nausea, No Vomiting, patient states she has had diarrhea for years, No Constipation, No abdominal Pain, No Hematochezia, No Melena Genitourinary : no irregular bleeding, No Dysuria, No Urinary Frequency, No Hematuria, No Urinary Incontinence, No Urgency, No Flank Pain, No Urinary Flow Changes, No Hesitancy Musculoskeletal : No joint pain, No Myalgias, No Joint Swelling Skin : No Skin Lesions, No rash Neuro : No Weakness, No Numbness, No Paresthesias, No Loss of Consciousness, No Dizziness, No Headache Psych : No Anxiety/Panic, patient admits to feeling depressed Heme/Lymph: No Bruising, No Bleeding,No Lymphadenopathy Endocrine : No Polyuria, No Polydipsia, No Temperature Intolerance [facility] Past Medical History Medical History Diarrhea C. difficile colitis Asthma GERD (gastroesophageal reflux disease) Bipolar disorder Anxiety and depression Constipation Diarrhea Surgical History History of esophagogastroduodenoscopy (EGD) H/O colonoscopy History of tubal ligation History of section Family History Family History Family/Other Cancer Other Family history of arthritis Social History Social History Alcohol intake: never Patient Tobacco Use Status: Former Tobacco user Tobacco use type: Cigarette Substance Use Type: Marijuana Advance Directives: No Advance Directives Information Provided: Yes Physical Exam Vital Signs: Vital Signs: Last Vital Signs Temp 97.9 F 05/25/24 23:13 Pulse 73 05/25/24 23:13 Resp 16 05/25/24 23:13 BP 106/49 L 05/25/24 23:13 Pulse Ox 100 05/25/24 23:13 O2 Del Method Room Air 05/25/24 23:13 BMI result Body Mass Index 18.3 Const: Other: Appearance: Alert. Oriented X3. No acute distress. Eyes: Pupils equal, round and reactive to light. ENT: Pharynx normal. Neck: Normal inspection. Neck supple. No lymph nodes noted. No crepitus CVS: Normal heart rate and rhythm. Pulses normal. Normal S1 and S2 Respiratory: No respiratory distress. Breath sounds normal. No Wheezing. No rales Abdomen: Soft and nontender. No rigidity. No distention. Skin: Skin warm and dry. Normal skin color. Normal skin turgor. Extremities: No lower extremity edema. No Lacerations. No Rash Neuro: Oriented X 3. No motor deficit. No sensory deficit. Moving all extremities. No slurred speech. CN 2 through 12 grossly intact Psych: calm, seems upset Course Course Course Narrative: 43 yo female with PMH of nausea, asthma, bipolar disorder, GERD, hx of c diff, she has had vomiting for 2 days. She has diarrhea, she cannot eat but is drinking water. She is here from medicine office for labs and possible hydration. No recent antibiotic use, no travel, no one else is sick at home. Labs ordered at this time. Just had negative flu and covid test today. this is a RAPID medical screening exam the rest of the history and physical exam is to be done by the main provider. Medications Administered Generic Name Dose Route Start Last Admin Trade Name Freq PRN Reason Stop Dose Admin Lactated Ringer's 1,000 mls @ 999 mls/hr 05/26/24 01:47 05/26/24 02:06 Lr IV 05/26/24 02:47 999 mls/hr .Q1H1M ONE Administration Discontinued Medications Generic Name Dose Route Start Last Admin Trade Name Evelina PRN Reason Stop Dose Admin Ondansetron HCl 4 mg 05/26/24 01:47 05/26/24 02:06 Ondansetron Hcl 4 Mg/2 Ml Vial IVPUSH 05/26/24 01:48 4 mg ONCE ONE Administration Medical Decision Making Medical Decision Making [facility] Narrative: my interpretation of labs: hematology at baseline,, no significant abnormality in patient's chemistry, normal LFTs, TSH was checked 1 week ago, within normal limits, hCG negative no obvious signs of dehydration. Reviewed patient's pathology report from a year ago, patient had upper and lower endoscopies, no significant abnormality in patient's pathology reports. Patient states that she is due for a colonoscopy this year after having a prolonged conversation with the patient and her significant other. Overall seems that patient has severe depression. Patient is not SI or HI. Patient states that she already has a therapist. We discussed the possibility of talking with her primary care physician about starting a medication such as mirtazapine to help with the depression and stimulate appetite. I also discussed with the patient that at this time, they will not be any IV vitamin infusions, not indicated. Patient will be given IV fluids, then discharged. patient will follow-up with her executive administrative asst Differential Diagnosis Differential Diagnoses: The differential diagnosis associated with the presentation includes ( chronic diarrhea, chronic depression) Lab Data 05/25/24 23:59 05/25/24 23:59 Labs: Lab Results 05/25/24 Range/Units 23:59 WBC 7.4 (4.8-10.8) X10*3/uL RBC 3.94 L (4.20-5.50) X10*6/uL Hgb 12.4 (12.0-16.0) g/dl Hct 35.1 L (37.0-47.0) % MCV 89.1 (80.0-98.0) fL MCH 31.5 (27.0-33.0) pg MCHC 35.3 H (31.0-35.0) g/dl RDW 12.4 (11.0-16.0) % Plt Count 284 (160-400) X10*3/uL MPV 9.2 L (9.4-12.3) fL Immature Gran % (Auto) 0.1 (0.0-0.4) % Neut % (Auto) 43.6 L (45-73) % Lymph % (Auto) 49.7 H (20-40) % Mesa % (Auto) 6.3 (2-11) % Eos % (Auto) 0.3 (0-4) % Baso % (Auto) 0.0 (0-2) % Lymph # (Auto) 3.7 (1.2-4.9) X10*3/uL Mesa # (Auto) 0.5 (0.1-1.2) X10*3/uL Eos # (Auto) 0.0 (0.0-0.4) X10*3/uL Baso # (Auto) 0.0 (0.0-0.2) X10*3/uL Abs Immat Gran (auto) 0.01 (0.00-0.03) X10*3/uL Absolute Neuts (auto) 3.2 (2.0-8.3) x10*3/uL Absolute Nucleated RBC 0.000 (0.0-0.012) X10*3/uL Nucleated RBC % (auto) 0.0 (0.0-0.2) /100WBC Sodium 140 (135-145) mmol/L Potassium 3.6 (3.3-5.1) mmol/L Chloride 110 H (96-108) mmol/L Carbon Dioxide 23 (22-29) mmol/L Anion Gap 11 L (12-20) BUN 14 (9-16) mg/dL Creatinine 0.83 (0.5-1.4) mg/dL Estim Creat Clear Calc 74.7 Estimated GFR > 60 Random Glucose 100 (60-115) mg/dL Calcium 8.8 D (8.4-10.2) mg/dL Magnesium 2.0 (1.6-2.6) mg/dL Total Bilirubin 0.5 (0.0-1.0) mg/dL Direct Bilirubin 0.2 (0.0-0.5) mg/dL AST 21 (5-31) U/L ALT 21 (0-31) U/L Alkaline Phosphatase 52 (39-117) U/L Total Protein 6.9 (6.5-8.0) g/dL Albumin 4.0 (3.5-5.0) g/dL Lipase 33 (8-78) U/L Beta HCG, Quant < 2 mIU/mL Influenza Type A (PCR) NEGATIVE (Negative) Influenza Type B (PCR) NEGATIVE (Negative) RSV RNA Qual (PCR) NEGATIVE (Negative) SARS-CoV-2 RNA (RT-PCR) NEGATIVE (Negative) Discharge Plan Discharge Clinical Impression: Chronic diarrhea, Chronic malaise Patient Disposition: Home, Self-Care Instructions: Fatigue (ED) Additional Instructions: Please follow-up with your primary care physician tomorrow. If you have any worsening or new symptoms, please return to the emergency room or call 911 Prescriptions: No Action loperamide 2 mg capsule 4 mg PO TID PRN (Reason: loose stool) Qty: 180 3RF ibuprofen 800 mg tablet 800 mg PO Q8H PRN (Reason: pain) Qty: 20 0RF diphenhydramine HCl [Banophen] 25 mg capsule 25 - 50 mg PO BEDTIME PRN (Reason: insomnia) albuterol sulfate 2.5 mg /3 mL (0.083 %) solution for nebulization 2.5 mg inhalation Q4-6H calcium carbonate [Antacid Ext Str (calcium carb)] 300 mg (750 mg) tablet,chewable 1 - 2 tab PO DIRECTED magnesium hydroxide [Milk of Magnesia] 400 mg/5 mL suspension 5 ml PO BEDTIME Qty: 355 3RF topiramate 25 mg tablet 25 mg PO BEDTIME cholecalciferol (vitamin D3) 50 mcg (2,000 unit) tablet 50 mcg PO QAM fluticasone propionate [Flovent HFA] 220 mcg/actuation HFA aerosol inhaler 1 puff inhalation BID montelukast 10 mg tablet 10 mg PO QPM Tab-A-Kisha Multivitamin w-iron 15 mg iron- 400 mcg tablet 1 tab PO QAM ropinirole 4 mg tablet 4 mg PO BEDTIME loratadine [Allergy Relief (loratadine)] 10 mg tablet 10 mg PO DAILY fluoxetine 20 mg capsule 40 mg PO QAM riboflavin (vitamin B2) [Vitamin B-2] 100 mg tablet 400 mg PO DAILY clonazepam 1 mg tablet 1 mg PO TID PRN (Reason: Anxiety) quetiapine 300 mg tablet 300 mg PO BEDTIME quetiapine 100 mg tablet 100 mg PO BID PRN (Reason: Anxiety) Vitamin Plus Low Iron 27 mg iron- 1 mg tablet 1 tab PO QAM imipramine HCl 50 mg tablet 50 mg PO BEDTIME Qty: 30 3RF Lactobacillus acidoph-L.bulgar 1 million cell tablet 1 tab PO QAM ondansetron 8 mg tablet,disintegrating 8 mg PO Q12H Qty: 60 3RF Asmanex HFA 200 mcg/actuation HFA aerosol inhaler 1 puff inhalation BID Mirena 21 mcg/24 hours (8 yrs) 52 mg intrauterine device intrauterine tramadol 50 mg tablet 50 mg PO Q12H PRN (Reason: severe pain) cyproheptadine 4 mg tablet 4 mg PO BID esomeprazole magnesium [Nexium] 40 mg capsule,delayed release(DR/EC) 40 mg PO DAILY Qty: 30 5RF sucralfate 100 mg/mL suspension 10 ml PO BEDTIME Qty: 400 3RF sennosides [Natural Senna Laxative] 8.6 mg tablet 17.2 mg PO BEDTIME Qty: 60 3RF Print Language: Egyptian
--- NOTE | 2024-05-26 00:02 | MHC.EDTECH ---
Patient brought into triage area,labs,and sars/flu/rsv obtained and sent to lab, patient attempted to give a urine sample pt was unable to at this time.
[2024-05-26 00:04] LABS: MANUAL DIFF FLAG NO
[2024-05-26 00:05] LABS: Eosinophils Percent Auto 0.3 % (0-4); Hematocrit 35.1 % (37.0-47.0); Hemoglobin 12.4 g/dl (12.0-16.0); Imm Gran Abs Auto 0.01 X10*3/uL (0.00-0.03); Imm Gran Pct Auto 0.1 % (0.0-0.4); Lymphocytes Absolute Auto 3.7 X10*3/uL (1.2-4.9); Lymphocytes Percent Auto 49.7 % (20-40); Mean Corpuscular HGB Conc 35.3 g/dl (31.0-35.0); Mean Corpuscular Hemoglobin 31.5 pg (27.0-33.0); Mean Corpuscular Volume 89.1 fL (80.0-98.0); Mean Platelet Volume 9.2 fL (9.4-12.3); Monocytes Absolute Auto 0.5 X10*3/uL (0.1-1.2); Monocytes Percent Auto 6.3 % (2-11); Neutrophils Absolute Auto 3.2 x10*3/uL (2.0-8.3); Neutrophils Percent Auto 43.6 % (45-73); Platelet Count 284 X10*3/uL (160-400); Red Blood Count 3.94 X10*6/uL (4.20-5.50); Red Cell Distribution Width 12.4 % (11.0-16.0); White Blood Count 7.4 X10*3/uL (4.8-10.8)
[2024-05-26 00:26] LABS: Alanine Aminotransferase 21 U/L (0-31); Alkaline Phosphatase 52 U/L (39-117); Anion Gap 11 (12-20); Aspartate Amino Transferase 21 U/L (5-31); Bilirubin Direct 0.2 mg/dL (0.0-0.5); Bilirubin Total 0.5 mg/dL (0.0-1.0); Blood Urea Nitrogen 14 mg/dL (9-16); Calcium 8.8 mg/dL (8.4-10.2); Carbon Dioxide 23 mmol/L (22-29); Chloride 110 mmol/L (96-108); Creatinine Clr Calc Pharmacy 74.7; Estimated Glomerular Filt Rate > 60; Glucose Random 100 mg/dL (60-115); Lipase 33 U/L (8-78); Potassium 3.6 mmol/L (3.3-5.1); Sodium 140 mmol/L (135-145); Total Protein 6.9 g/dL (6.5-8.0)
[2024-05-26 00:29] LABS: HCG Quantitative < 2 mIU/mL
[2024-05-26 00:41] LABS: Influenza A PCR NEGATIVE (Negative); Influenza B PCR NEGATIVE (Negative); Resp Syncy Virus RNA Qual PCR NEGATIVE (Negative); SARS COV2 PCR INHOUSE NEGATIVE (Negative)
[2024-05-26] MEDS: Lactated Ringers 1,000 ML 999 ML IV (02:06)
[2024-05-26] MEDS: ondansetron HCL 4 MG/2 ML VIAL IVPUSH (02:06)
[2024-05-26 03:34] VITALS: BP 106/49; PULSE 73; RESP 16; TEMP 36.6; O2SAT 100
== END 2024-05-26 03:15 | disposition home or self-care (01) ==
PROVIDERS: Emergency Medicine; Emergency Provider Emergency Medicine; PCP General Practice
DX: R11.2 Nausea with vomiting, unspecified (principal); R19.7 Diarrhea, unspecified; R53.81 Other malaise; Z87.891 Personal history of nicotine dependence; Z03.818 Encounter for observation for suspected exposure to other biological agents ruled out; Z79.899 Other long term (current) drug therapy
CPT/HCPCS: 0241U; 80048; 80076; 83690; 83735; 84702; 85025; 96374; 99283; 99284; J2405; J7120

== ENCOUNTER 2024-05-27 11:38 | Outpatient (AMB) | payer MEDICAID, SELFPAY ==
--- NOTE | 2024-05-27 11:38 | A.OFFVIS_ITS ---
Vital Signs 05/27/24 11:40 Height 5 ft 7 in Weight 117 lb BMI 18.3 Intake Visit Reasons: OV-Left knee MRI review Intake Note: Kera is a 43 year old female who presents for a MRI review of her left knee. She describes her left knee pain as achy in nature. She has not had a cortisone injection. She has tried physical therapy exercises which aggravated her pain. She has also tried Tylenol and anti-inflammatory medicines which gave her minimal relief. She does have a history of fibromyalgia. Flight Purser Required: No Allergies cephalexin [From Keflex] Allergy (Intermediate, Verified 05/27/24 11:40) Eye Swelling morphine Allergy (Intermediate, Verified 05/27/24 11:40) Itching shellfish derived [SHELLFISH DERIVED] Allergy (Intermediate, Verified 05/27/24 11:40) swelling Medication List - Last Reconciled 05/27/24 by Sam Panda MD albuterol sulfate 2.5 mg inhalation Q4-6H calcium carbonate (Antacid Ext Str (calcium carb)) 1 - 2 tabs PO DIRECTED cholecalciferol (vitamin D3) 50 mcg PO QAM clonazepam 1 mg PO TID PRN cyproheptadine 4 mg PO BID diphenhydramine HCl (Banophen) 25 - 50 mg PO BEDTIME PRN esomeprazole magnesium (Nexium) 40 mg PO DAILY fluoxetine 40 mg PO QAM fluticasone propionate 220 mcg/actuation (Flovent HFA) 1 puff inhalation BID ibuprofen 800 mg PO Q8H PRN imipramine HCl 50 mg PO BEDTIME Lactobacillus acidoph-L.bulgar 1 million cell 1 tab PO QAM levonorgestrel (Mirena) intrauterine loperamide 4 mg (2 x 2 mg) PO TID PRN loratadine (Allergy Relief (loratadine)) 10 mg PO DAILY magnesium hydroxide (Milk of Magnesia) 5 mL PO BEDTIME mometasone 200 mcg/actuation (Asmanex HFA) 1 puff inhalation BID montelukast 10 mg PO QPM multivit-iron sulf-folic acid 15 mg iron- 400 mcg (Tab-A-Kisha Multivitamin w- iron) 1 tab PO QAM ondansetron 8 mg PO Q12H PNV,calcium 14-puta-evomy acid 27 mg iron- 1 mg ( Vitamins Plus Low Iron) 1 tab PO QAM quetiapine 300 mg PO BEDTIME quetiapine 100 mg PO BID PRN riboflavin (vitamin B2) (Vitamin B-2) 400 mg PO DAILY ropinirole 4 mg PO BEDTIME sennosides (Natural Senna Laxative) 17.2 mg (2 x 8.6 mg) PO BEDTIME sucralfate 10 mL PO BEDTIME topiramate 25 mg PO BEDTIME tramadol 50 mg PO Q12H PRN PFSH Medical History Diarrhea C. difficile colitis Asthma GERD (gastroesophageal reflux disease) Bipolar disorder Anxiety and depression Constipation Diarrhea Surgical History History of esophagogastroduodenoscopy (EGD) H/O colonoscopy History of tubal ligation History of section Family History Family/Other Cancer Other Family history of arthritis Social History Alcohol intake: never Patient Tobacco Use Status: Former Tobacco user Tobacco use type: Cigarette Substance Use Type: Marijuana Female Reproductive History Menstrual Age of Menarche: 17 Physical Exam Vital Signs: BMI result Body Mass Index 18.3 Const Other: Well-nourished well-developed very friendly female awake alert and oriented x3 in no acute distress Extrem Other: Left knee examination shows a minimal effusion, mild crepitus with range of motion, no instability, negative Gatito's test Office Procedures AMB Joint Injection/Aspiration Joint Injection/Aspiration Primary Site: left knee Prep: site was prepped using aseptic technique Injected: 40 mg of, DepoMedrol and 1% plain lidocaine Procedure: The patient tolerated the procedure well Coding 01078 - Large joint Procedure code (CPT) selection complete Results Reviewed Results Reviewed: MRI of the patient's left knee shows mild diffuse degenerative changes, no evidence of meniscus or ligamentous tearing Assessment & Plan Assessment & Plan (1) Arthritis of left knee: Code(s): M17.12 - Unilateral primary osteoarthritis, left knee Category: Medical Plan Ms. Lc Nicole presents with left knee pain due to early degenerative joint disease. The risks and benefits of a left knee cortisone injection were d iscussed at length with the patient. The patient wished to proceed. She tolerated the injection well. She will continue with her activity modifications. She will contact me prior to her follow-up appointment in 3 months should any questions or concerns arise. I spent 20 minutes in reviewing the patient's records and imaging studies, seeing the patient and documenting in the medical record. Orders: Orders AMB Joint Injection/Aspiration Today M17.12 - Unilateral primary osteoarthriti s, left knee Coding Level of Care Code Est Pt Level 3 (05998) Complex EM visit Add On G2211 Diagnoses Arthritis of left knee M17.12 CPT Codes Coding - 30330 Large joint: 05318 - Large joint ([id number])
[2024-05-27 11:40] VITALS: BMI 18.3
--- OUTSIDE RECORDS SUMMARY | 2024-05-27 13:26 | XMS_ITS | Encounter Summary ---
Author Organization [employer] [facility] Address [address] [facility] 7 [place] [address] Care Team Providers Care Business Solutions Analyst Name Role Phone Jessi Dueñas MD Primary Care Provider Reason for Visit * Reason Comments Care Coordination C3 -SERGE edwards telephone call outreach Encounter Details Date Type Department Care Team (Latest Contact Info) Description 05/27/2024 Patient Outreach [facility] MEDICINE [address] [place] [address] Jessi Dueñas MD [address] [place] [address] Care Coordination (C3 TYRA-SERGE Doshi telephone call outreach) Social History Tobacco Use Types Packs/Day Years [...] is your housing situation today? I have housing today, but I am worried about losing housing in the future 05/27/[address] you li ve. Do you have problems with any of the following? None of the above 05/27/2024 Food Insecurity Answer Date Recorded Within the past 12 months, y ou worried that your food would run out before you got money to buy more: Sometimes True 2024 Within the past 12 months,th e food you bought just didn't last and you didn't have enough money to get more: Sometimes True 05/27/2024 Transportation Answer Date Recorded In the past 12 months, has l ack of transportation kept you from medical appts, meetings, work or from getting things needed for daily living? No 05/27/2024 Utilities Answer Date Recorded In the past 12 months, has t he electric, gas, oil or water company threatened to shut off services in your home? No 05/27/2024 Depression Answer Date Recorded Patient Health Questionnaire-2 Score 2 09/19/2023 Internet Access Answer Date Recorded Internet Access Q1 Yes 05/27/2024 Internet Access Q2 Not on file 05/27/2024 Comments Unknown Sex and Gender Information Value Date Recorded Sex Assigned at Female 01/31/2022 10:21 AM EDT Legal Sex Female 10:21 AM EDT Gender Identity Female 01/31/2022 10:21 AM EDT Sexual Orientation Straight 01/31/2022 10 :21 AM EDT documented as of this encounter Progress Notes * Alma Delia Doshi - 05/27/2024 11:47 AM EST CHW Alma Delia Doshi, placed outbound call to patient introducing herself from [facility] CM Department, in regards to offering services. Patient's name and was confirmed. Patient agrees toparticipate in program. Appt. for initial assessment scheduled for 05/31/24 @ 10:30AM. CHW reinforced direct contact information or CM for any additional questions or concerns and extended clinic hours on Mondays and Wednesdays, and Walk-In Urgent Care Located in [place] [facility]. Patient provided with after-hours line for [facility], , which offer night time triageservice and option to transfer to partition assembly machine operator provider if needed. Patient verbalizes understanding, and able to repeat back to mortgage loan underwriter. documented in this encounter Plan of Treatment Upcoming Encounters Date Type Department Care Team (Late st Contact Info) Description 07/26/2024 9:45 AM EDT Office Visit [facility]INE [address] [place] [address] Jessi Dueñas MD [address] [place] [address] documented as of this encounter Visit Diagnoses Not on filedocumented in this encounter Additional Health Concerns Assessment Noted Time PHQ-9 Depression Total Score: 8 09/19/19 24 11:07 AM EDT documented as of this encounter Care Teams Business Solutions Analyst Relationship Specialty Start Date End Date Jessi Dueñas MD [address] [place] [address] PCP - General Family Medicine 11/24/20 Mikayla Bhagat Line RiderFeather Boner 05/09/23 documented as of this encounter
--- OUTSIDE RECORDS SUMMARY | 2024-05-27 13:26 | XMS_ITS | Encounter Summary ---
Author Organization [employer] [facility] Address [address] [facility] 7 [place] [address] Care Team Providers Care Sharepoint Administrator Name Role Phone Jessi Dueñas MD Primary Care Provider [phone] Reason for Visit * Reason Onset Date Comments Other 01/05/2023 Encounter Details Date Type Department Care Team ([facility] st Contact Info) Description 01/05/2023 Telephone [facility] MEDICINE [address] [place] [address] Jessi Dueñas MD [address] [place] [address] Other Social History Tobacco Use Types Packs/Day [...] 12:53 PM EDT TC placed to pt [phone] to inform pt PCP sent Cymbalta to the pharmacy yesterday at [facility] for her pain. Pt reports she called [facility] pharmacy today and they told her that they did not receive the script. RN placed pt on hold and called [facility] pharmacy who confirmed they did receive the [...] rheumatology referral d/t [facility] not speaking mexican. Pt was informed PCP has placed new rheumatology referral for [facility] yesterday. Pt verbalized understanding. Pt to f/u PRN. * Telephone Encounter - Divya Frank - 01/05/2023 11:51 AM EDT Tc from pt states PCP advised her she will send a script for pain on 01/04 appointment but pt never received medication. Please contact pt at [phone] (New Zealander) documented in this encounter Plan of Treatment Upcoming Encounters Date Type Department Care Team (Late st Contact Info) Description 07/26/2024 9:45 AM EDT Office Visit [facility] MEDICINE [address] [place] [phone] Jessi Dueñas MD [address] [place] [phone] documented as of this encounter Visit Diagnoses Not on filedocumented in this encounter Additional Health Concerns Assessment Noted Time PHQ-9 Depression Total Score: 20 023 9:49 AM EDT documented as of this encounter Care Teams Sharepoint Administrator Relationship Specialty Start Date End Date Jessi Dueñas MD [address] [place] [phone] PCP - General Family Medicine 11/24/20 Mikayla Bhagat Peer Financial CounselorSupervisor Fishing 05/09/23 documented as of this encounter
--- OUTSIDE RECORDS SUMMARY | 2024-05-27 13:26 | XMS_ITS | Encounter Summary ---
Author Organization [employer] [facility] Address [address] [facility] 7 [place] [address] Care Team Providers Care Relationship Banker Name Role Phone Jessi Dueñas MD Primary Care Provider [phone] Reason for Visit * Reason Onset Date Comments [facility] 05/13/2024 Disposable Unde rpad/Chux Large Encounter Details Date Type Department Care Team ([facility] st Contact Info) Description 05/13/2024 Telephone [facility] MEDICINE [address] [place] [address] Jessi Dueñas MD [address] [place] [address] [facility] (Disposable Underpad/Chux Large) Social History Tobacco Use [...] signed by the PCP and faxed to [email or web address]. It is now sent in for scanning. * Telephone Encounter - Julian Slater [place] - 05/13/2024 9:59 AM EST Received medical necessity form from [email or web address] for Disposable Underpad/Chux Large. Form has been filledout and placed on PCP's desk for signature. documented in this encounter Plan of Treatment Upcoming Encounters Date Type Department Care Team (Late st Contact Info) Description 07/26/2024 9:45 AM EDT Office Visit [facility] MEDICINE [address] [place] [address] Jessi Dueñas MD [address] [place] [address] documented as of this encounter Visit Diagnoses Not on filedocumented in this encounter Additional Health Concerns Assessment Noted Time PHQ-9 Depression Total Score: 8 09/19/19 24 11:07 AM EDT documented as of this encounter Care Teams Relationship Banker Relationship Specialty Start Date End Date Jessi Dueñas MD [address] [place] [address] PCP - General Family Medicine 11/24/20 Mikayla Bhagat Press Machine OperatorCell Stripper Final 05/09/23 documented as of this encounter
--- OUTSIDE RECORDS SUMMARY | 2024-05-27 13:26 | XMS_ITS | Encounter Summary ---
Author Organization [employer] Address [address] [facility] 7t [place] [address] Care Team Providers Care Prison Guard Supervisor Name Role Phone Jessi Dueñas MD Primary Care Provider [phone] Reason for Referral * Consultation (Routine) - Closed Specialty Diagnoses / Procedures Referred By Contac t Referred To Contact Physical Therapy Diagnoses Acute bilateral low back pain without sciatica Chronic pain of both knees Bilateral hand pain Jessi Dueñas MD [address] [place] [address] Phone: tel: fax: [facility] [address] [facility] [address] [place], [place] Phone: tel: fax: Referral ID Status Reason Start Date Expiration Date V isits Requested Visits Authorized [id number] Closed Specialty Services Required 04/17/2024 04/17/2025 20 20 Encounter Details Date Type Department Care Team (Late st Contact Info) Description 04/17/2024 Orders Only [facility] MEDICINE [address] [place] [address] [phone] Jessi Dueñas MD [address] [place], [place] [phone] Acute bilateral low back pain without sciatica [...] Description 07/26/2024 9:45 AM EDT Office Visit [facility] [address] [place] [address] Jessi Dueñas MD [address] [place] [address] Scheduled Referrals Name Type Priority Associated Diagnoses [...] documented as of this encounter Care Teams Prison Guard Supervisor Relationship Specialty Start Date End Date Jessi Dueñas MD [address] [place] [address] PCP - General Family Medicine 11/24/20 Mikayla Bhagat Pipe Fittings MolderDry Cleaner 05/09/23 documented as of this encounter
--- OUTSIDE RECORDS SUMMARY | 2024-05-27 13:26 | XMS_ITS | Encounter Summary ---
Author Organization [employer] Address [address] [facility] 7 [place] [address] Care Team Providers Care Burn Out Tender Lace Name Role Phone Jessi Dueñas MD Primary Care Provider [phone] Reason for Visit * Reason Comments Care Coordination C3 -SERGE edwards telephone call outreach Encounter Details Date Type Department Care Team (Latest Contact Info) Description 05/27/2024 Patient Outreach [facility] MEDICINE [address] [place] [address] Jessi Dueñas MD [address] [place] [address] Care Coordination (C3 TOM Doshi telephone call outreach /) Social History Tobacco Use Types Packs/Day Years [...] got money to buy more: Sometimes True 02/24/ 2025 Within the past 12 months,th e food [...] Notes * Alma Delia Doshi - 05/27/2024 11:59 AM EST CHW Alma Delia Doshi placed outbound call to patient introducing herself from [facility] CM Department, in regards to offering CM-CHW program services. Patient's name and was confirmed. Patient agrees to participate in CHW- program for SDOH needs. SDOH screening completed: 05/27/24, CHW spoke to patient she needs help with a low-income accessible apartment for 3 bedrooms. CHW reinforced direct contact information for any additional questions or concerns and extended clinic hours on Mondays and Wednesdays, and Walk-In Urgent Care Located in [facility]. Patient providedwith after-hours line for [facility], , which offer night time triage service and option to transfer to water quality control engineer provider if needed. Patient verbalizes understanding, and able to repeat back to typewriter tester. documented in this encounter Plan of Treatment Upcoming Encounters Date Type Department Care Team (Late st Contact Info) Description 07/26/2024 9:45 AM EDT Office Visit [facility] MEDICINE [address] [place] [address] Jessi Dueñas MD [address] [place] [address] documented as of this encounter Visit Diagnoses Not on filedocumented in this encounter Additional Health Concerns Assessment Noted Time PHQ-9 Depression Total Score: 8 09/19/19 24 11:07 AM EDT documented as of this encounter Care Teams Burn Out Tender Lace Relationship Specialty Start Date End Date Jessi Dueñas MD [address] [place] [address] PCP - General Family Medicine 11/24/20 Mikayla Bhagat Custom Motorcycle PainterProject Management Director 05/09/23 documented as of this encounter
--- OUTSIDE RECORDS SUMMARY | 2024-05-27 13:26 | XMS_ITS | Encounter Summary ---
Author Organization [employer] Address [address] [facility] 7t [place] [address] Care Team Providers Care Coding Technician Name Role Phone Jessi Dueñas MD Primary Care Provider [phone] Encounter Details Date Type Department Care Team ([facility] st Contact Info) Description 01/11/2023 Orders Only [facility] MEDICINE [address] [place], [place] [phone] Jessi Dueñas MD [address] [place], [place] [phone] Chronic pain of both knees (Primary Dx) [...] Description 07/26/2024 9:45 AM EDT Office Visit [facility] MEDICINE [address] [place] [phone] Jessi Dueñas MD [address] [place] [address] documented as of this encounter Visit Diagnoses Diagnosis Chronic pain of both knees- Primary documented in this encounter Additional Health Concerns Assessment Noted Time PHQ-9 Depression Total Score: 20 023 9:49 AM EDT documented as of this encounter Care Teams Coding Technician Relationship Specialty Start Date End Date Jessi Dueñas MD [address] [place] [address] PCP - General Family Medicine 11/24/20 Mikayla Bhagat Hygiene TeacherWrap Knitting Machine Operator 05/09/23 documented as of this encounter
--- OUTSIDE RECORDS SUMMARY | 2024-05-27 13:26 | XMS_ITS | Encounter Summary ---
Author Organization [employer] Address [address] [facility] 7t [place] [address] Care Team Providers Care Board Of Directors Name Role Phone Jessi Dueñas MD Primary Care Provider [phone] Encounter Details Date Type Department Care Team (Late st Contact Info) Description 05/25/2024 Orders Only GENERIC EXTERNAL DATA DEPARTMENT Provider, Generic External Data Social History Tobacco Use Types Packs/Day Years [...] t he electric, gas, oil or water [employer] threatened to shut off services in your [...] Upcoming Encounters Date Type Department Care Team ([facility] st Contact Info) Description 07/26/2024 9:45 AM EDT Office Visit [facility] MEDICINE [address] [place] [address] [phone] Jessi Dueñas MD [address] [place], [place] [phone] documented as of this encounter Procedures Procedure Name Priority Date/Time Associated Diagnosis Comments SARS COV2/INFLUENZA A/B AND RSV RNA QL NAAT Routine 05/25/2024 11:59 PM EST CBC WITH AUTO DIFFERENTIAL Routine 05/25/2024 11:59 PM EST HCG, TOTAL, QN Routine 05/25/2024 11:59 PM EST MAGNESIUM Routine 05/25/2024 11:59 PM EST LIPASE Routine 05/25/2024 11:59 PM EST HEPATIC FUNCTION PANEL Routine 05/25/2024 11:59 PM EST BASIC METABOLIC PANEL Routine 05/25/2024 11:59 PM EST documented in this encounter Results * SARS-CoV-2 RNA, Influenza A/B, and RSV RNA, Ql NAAT (05/25/2024 11:59 PM EST) Influenza A PCR NEGATIVE Negative [facility] Influenza B PCR NEGATIVE Negative [facility] Resp Syncy Virus RNA Qual PCR NEGATIVE Negative [facility] SARS COV2 PCR NEGATIVE Negative [facility] Comment:All test results mus t be correlated with clinical findings.Negative results do not preclude SARS-CoV2, influenza Avirus, influenza B virus and/or RSV infectionand should not be used as the sole basis for treatment orother patient management decisions. Negative results must becombined with clinical observations, patient history, andepidemiological information.This test has not been evaluated for monitoring treatment ofinfection.This test has been authorized by the FDA under an EmergencyUse Authorization (EUA) for use by authorized laboratories.Testing performed on the RxResults GeneXpert utilizingreal-time RT-PCR.All SARS CoV2 and positive influenza A/B results arereported to [facility]. 05/25/2024 11:5 9 PM EST 05/26/2024 12:02 AM EST Generic External Data Provider LAB MICROBIOLOGY - GENERAL ORDERABLES Final Result [facility] [address] [place] [phone] * hCG, Total, Quantitative (05/25/2024 11:59 PM EST) HCG Quantitative <2 mIU/mL [facility] Comment:Weeks post LMP Appro ximate hCG(Last Menstrual Period) Range (mIU/ml)3 - 4 weeks 9 - 1304 - 5 weeks 75 - 2,6005 - 6 weeks 850 - 20,8006 - 7 weeks 4000 - 100,2007 - 12 weeks 11,500 - 289,80448 - 16 weeks 18,300 - 137,17266 - 29 weeks (2nd trimester) 1,400 - 53,07437 - 41 weeks (3rd trimester) 940 - 60,000The Mederos B- hCG assay is used for the early detection ofpregnancy; it cannot be used to diagnose any conditionunrelated to . If a B-hCG level is not supportedby the clinical evidence, results should be confirmed by analternative method (qualitative urine hCG, for example). 05/25/2024 11:5 9 PM EST 05/26/2024 12:02 AM EST us Generic External Data Provider LAB BLOOD ORDERAB LES Final Result Performing Organization Address [facility] Co de Phone Number [facility] [address] [place] [phone] * Lipase (05/25/2024 11:59 PM EST) Pathologist [facility] Lipase 33 8 - 78 U/L [facility] 05/25/2024 11:5 9 PM EST 05/26/2024 12:02 AM EST us Generic External Data Provider LAB BLOOD ORDERAB LES Final Result Performing Organization Address [facility] Co de Phone Number [facility] [address] [place] [phone] * Magnesium (05/25/2024 11:59 PM EST) Pathologist [facility] Magnesium 2.0 1.6 - 2.6 mg/dL [facility] 05/25/2024 11:5 9 PM EST 05/26/2024 12:02 AM EST Generic External Data Provider LAB BLOOD ORDERAB LES Final Result Performing Organization Address [facility] de Phone Number [facility] [address] [place] [phone] * (ABNORMAL) Basic Metabolic Panel (05/25/2024 11:59 PM EST) Pathologist [facility] Sodium 140 135 - 145 mmol/L [facility] Potassium 3.6 3.3 - 5.1 mmol/L [facility] Chloride 110(H) 96 - 108 mmol/L [facility] Carbon Dioxide 23 22 - 29 mmol/L [facility] Anion Gap 11(L) 12 - 20 [facility] Urea Nitrogen (BUN) 14 9 - 16 mg/dL [facility] Creatinine, Serum 0.83 0.5 - 1.4 mg/dL [facility] Creatinine Clr Calc Pharmacy 74.7 [facility] Comment:Provided height and weight: 170.18 cm,53.1 kg.eGFR (calculated from the MDRD study equation) and eCrCl(calculated from the Cockcroft-Gault equation) are based ondifferent parameters and may not yield comparable results.If eCrCl result is absurd, please check patient'sheight/weight. Estimated Glomerular Filt Rate >60 [facility] Comment:Chronic Kidney Disea se: Estimated GFR < 60 mL/min/1.27z1Kmqoit Kidney Disease: Estimated GFR < 15 mL/min/1.73m2 Glucose 100 60 - 115 mg/dL [facility] Calcium 8.8 8.4 - 10.2 mg/dL [facility] 05/25/2024 11:5 9 PM EST 05/26/2024 12:02 AM EST us Generic External Data Provider LAB BLOOD ORDERAB LES Final Result Performing Organization Address City/State/[facility] Co de Phone Number [facility] [address] [place] [phone] * Hepatic Function Panel (05/25/2024 11:59 PM EST) Bilirubin, Total 0.5 0.0 - 1.0 mg/dL [facility] Bilirubin, Direct 0.2 0.0 - 0.5 mg/dL [facility] Aspartate Amino Transferase 21 5 - 31 U/L [facility] Alanine Aminotransferase 21 0 - 31 U/L [facility] Total Protein 6.9 6.5 - 8.0 g/dL [facility] Albumin Level 4.0 3.5 - 5.0 g/dL [facility] Alkaline Phosphatase 52 39 - 117 U/L [facility] 05/25/2024 11:5 9 PM EST 05/26/2024 12:02 AM EST us Generic External Data Provider LAB BLOOD ORDERAB LES Final Result [facility] [address] [place] [phone] [phone] * (ABNORMAL) CBC auto differential (05/25/2024 11:59 PM EST) White Blood Count 7.4 4.8 - 10.8 X10*3/uL [facility] Red Blood Count 3.94(L) 4.20 - 5.50 X10*6/uL [facility] Hemoglobin 12.4 12.0 - 16.0 g/dl [facility] Hematocrit 35.1(L) 37.0 - 47.0 % [facility] Mean Corpuscular Volume 89.1 80.0 - 98.0 fL [facility] Mean Corpuscular Hemoglobin 31.5 27.0 - 33.0 pg [facility] Mean Corpuscular HGB Conc 35.3(H) 31.0 - 35.0 g/dl [facility] Red Cell Distribution Width 12.4 11.0 - 16.0 % [facility] Platelet Count 284 160 - 400 X10*3/uL [facility] Mean Platelet Volume 9.2(L) 9.4 - 12.3 fL [facility] Neutrophils Percent Auto 43.6(L) 45 - 73 % [facility] Imm Gran Pct Auto 0.1 0.0 - 0.4 % [facility] Lymphocytes Percent Auto 49.7(H) 20 - 40 % [facility] Monocytes Percent Auto 6.3 2 - 11 % [facility] Eosinophils Percent Auto 0.3 0 - 4 % [facility] Basophils Percent Auto 0.0 0 - 2 % [facility] NRBC Pct Auto 0.0 0.0 - 0.2 /100WBC [facility] Neutrophils Absolute Auto 3.2 2.0 - 8.3 x10*3/uL [facility] Imm Gran Abs Auto 0.01 0.00 - 0.03 X10*3/uL [facility] Lymphocytes Absolute Auto 3.7 1.2 - 4.9 X10*3/uL [facility] Monocytes Absolute Auto 0.5 0.1 - 1.2 X10*3/uL [facility] Eosinophils Absolute Auto 0.0 0.0 - 0.4 X10*3/uL [facility] Basophils Absolute Auto 0.0 0.0 - 0.2 X10*3/uL [facility] NRBC Abs Auto 0.000 0.0 - 0.012 X10*3/uL [facility] 05/25/2024 11:5 9 PM EST 05/26/2024 12:02 AM EST us Generic External Data Provider LAB BLOOD ORDERAB LES Final Result Performing Organization Address City/State/[facility] Co de Phone Number [facility] [address] [place] [phone] documented in this encounter Visit Diagnoses Not on filedocumented in this encounter Additional Health Concerns Assessment Noted Time PHQ-9 Depression Total Score: 8 09/19/19 24 11:07 AM EDT documented as of this encounter Care Teams Board Of Directors Relationship Specialty Start Date End Date Jessi Dueñas MD [address] [place] [address] PCP - General Family Medicine 11/24/20 Mikayla Bhagat Segment ProducerZipper Setter Lockstitch 05/09/23 documented as of this encounter
--- OUTSIDE RECORDS SUMMARY | 2024-05-27 13:26 | XMS_ITS | Encounter Summary ---
Author Organization [employer] [facility] Address [address] [facility] 7 [place] [address] Care Team Providers Care Pocket Setter Lockstitch Name Role Phone Jessi Dueñas MD Primary Care Provider [phone] Reason for Visit * Reason Onset Date Comments Results 05/23/2023 Encounter Details Date Type Department Care Team ([facility] st Contact Info) Description 05/23/2023 Telephone [facility] MEDICINE [address] [place] [address] Jessi Dueñas MD [address] [place] [address] Results Social History Tobacco Use Types Packs/Day [...] T/C to pt. For below message through Dapt id - [id number], pt. Informed regarding normal x-ray result. pt. [...] case of any new or worsening symptoms. [facility] hours are reviewed. Pt. Verbally agreed and understood. * Telephone Encounter - Paco Sylvester - 05/24/2023 3:59 PM EST Tc from pt returning call. Please contact at [phone] * Telephone Encounter - Yumiko Whitaker RN - 05/24/2023 12:47 PM EST Return T/C to pt. For bellow message Normal x-ray result. No answer. LVM to call back on [phone]. * Telephone Encounter - Bran Parker - 05/23/2023 4:41 PM EST TC from pt requesting call back regarding Results. Type of results: X-Ray Date when done: 05/16/23 Facility: [facility] documented in this encounter Plan of Treatment Upcoming Encounters Date Type Department Care Team (Late st Contact Info) Description 07/26/2024 9:45 AM EDT Office Visit [facility] MEDICINE [address] [place], [place] [phone] Jessi Dueñas MD [address] [place], [place] [phone] documented as of this encounter Visit Diagnoses Not on filedocumented in this encounter Additional Health Concerns Assessment Noted Time PHQ-9 Depression Total Score: 20 023 9:49 AM EDT documented as of this encounter Care Teams Pocket Setter Lockstitch Relationship Specialty Start Date End Date Jessi Dueñas MD [address] [place] [address] PCP - General Family Medicine 11/24/20 Mikayla Bhagat Induction Heat TreaterMarketing Traffic Coordinator 05/09/23 documented as of this encounter
--- OUTSIDE RECORDS SUMMARY | 2024-05-27 13:26 | XMS_ITS | Encounter Summary ---
Author Organization [employer] Address [address] [facility] 7t [place] [address] Care Team Providers Care Automation Design Engineer Name Role Phone Jessi Dueñas MD Primary Care Provider [phone] Reason for Visit * Reason Onset Date Comments [facility] 05/02/2024 Disposable unde rpad, large1 unit = each, 248 per mo. Encounter Details Date Type Department Care Team ([facility] st Contact Info) Description 05/02/2024 Telephone [facility] MEDICINE [address] [place] [address] Jessi Dueñas MD [address] [place] [address] [facility] (Disposable underpad, [...] the past 12 months, has t he [employer], gas, oil or water company threatened to [...] AM EST Received medical necessity form from [employer] for Disposable underpad (large). Form has been placed on PCP's desk for signature. documented in this encounter Plan of Treatment Upcoming Encounters Date Type Department Care Team (Late st Contact Info) Description 07/26/2024 9:45 AM EDT Office Visit [facility] MEDICINE [address] [place] [address] Jessi Dueñas MD [address] [place] [address] documented as of this encounter Visit Diagnoses Not on filedocumented in this encounter Additional Health Concerns Assessment Noted Time PHQ-9 Depression Total Score: 8 09/19/19 24 11:07 AM EDT documented as of this encounter Care Teams Automation Design Engineer Relationship Specialty Start Date End Date Jessi Dueñas MD [address] [place] [address] PCP - General Family Medicine 11/24/20 Mikayla Bhagat Paleontology TeacherDomestic Technician 05/09/23 documented as of this encounter
--- OUTSIDE RECORDS SUMMARY | 2024-05-27 13:26 | XMS_ITS | Encounter Summary ---
Author Organization [employer] Address [address] [facility] 7t [place] [address] Care Team Providers Care Mmd Unit Teacher Name Role Phone Jessi Dueñas MD Primary Care Provider Reason for Visit * Reason Comments Med Refill Encounter Details Date Type Department Care Team ([facility] st Contact Info) Description 05/12/2024 Refill [facility] MEDICINE [address] [place], [place] [phone] Jsesi Dueñas MD [address] [place], [place] [phone] Allergic rhinitis, unspecified seasonality, unspecified trigger Social [...] Description 07/26/2024 9:45 AM EDT Office Visit [facility] MEDICINE [address] [place] [address] Jessi Dueñas MD [address] [place] [address] documented as of this encounter Visit Diagnoses Diagnosis Allergic rhinitis, unspecified seasonality, unspecified trigger documented in this encounter Additional Health Concerns Assessment Noted Time PHQ-9 Depression Total Score: 8 09/19/19 24 11:07 AM EDT documented as of this encounter Care Teams Mmd Unit Teacher Relationship Specialty Start Date End Date Jessi Dueñas MD [address] [place] [id number] PCP - General Family Medicine 11/24/20 Mikayla Bhagat LapelerAcoustical Carpenter 05/09/23 documented as of this encounter
--- OUTSIDE RECORDS SUMMARY | 2024-05-27 13:26 | XMS_ITS | Encounter Summary ---
Author Organization [employer] Address [address] [facility] 7 [place] [address] Care Team Providers Care Dye Tank Tender Name Role Phone Jessi Dueñas MD Primary Care Provider [phone] Reason for Visit * Reason Comments Weight Management Encounter Details Date Type Department Care Team ([facility] st Contact Info) Description 05/17/2024 11:00 AM EST Office Visit [facility] MEDICINE [address] [place] [address] Jessi Dueñas MD [address] [place] [address] Weight loss of more than 10% body weight (Primary Dx); Post concussion syndrome; Gastroesophageal reflux disease without esophagitis; Bipolar affective disorder, currently depressed, moderate (CMS/HCC); Fibromyalgia Social History Tobacco Use Types Packs/Day [...] the past 12 months, has t he [employer], gas, oil or water [email or web address] threatened to shut off services in your home? No 01/17/2023 Depression Answer Date Recorded Patient Health Questionnaire-2 Score 2 09/19/2023 Comments Unknown Sex and Gender Information Value Date Recorded Sex Assigned at Female 01/31/2022 10:21 AM EDT Legal Sex Female 10:21 AM EDT Gender Identity Female 01/31/2022 10:21 AM EDT Sexual Orientation Straight 01/31/2022 10 :21 AM EDT documented as of this encounter Last Filed Vital Signs Vital Sign Reading Time Taken Comments Blood Pressure 105/62 05/17/2024 10:46 AM EST Pulse 71 05/17/2024 10:46 AM EST Temperature 36.3 ??C (97.3 ??F) 05/17/2024 10:[address] Respiratory Rate 16 05/17/2024 10:46 AM EST Oxygen Saturation 100% 05/17/2024 10:46 AM EST Inhaled Oxygen Concentration - - Weight 54.4 kg (120 lb) 05/17/2024 10:46 AM EST Height 170.2 cm (5' 7 ) 05/17/2024 10:46 AM EST Body Mass Index 18.79 05/17/2024 10:46 AM EST documented in this encounter Progress Notes * Jessi Dueñas MD - 05/17/2024 11:00 AM EST SUBJECTIVE: Kera Nicole is a 43 y.o. year old female who presents for chronic disease management. Denies recent illness, ER visit, or hospitalization. Acute Concerns: Neurological issues, hands dropping things, dis balanced, running into things. Just dropped a heavyobject onto her R ankle. Will get xray of ankle and send to neurology for this indication. 04/11/24 ortho- MRI to rule out mensical tear Interim Updates: Medication management On [employer] Concerned about potential side effects of medications Psychiatrist is Ainsley Queen at [facility] I am concerned about the potential for Seroquel to cause abnormal movements, she was also previously on Reglan for nausea, and is already on Ropinirole for restless leg syndrome. Sleep study at [facility]: 03/11/24 no KATHARINE, 2.2 periodic leg movements per hour (restless leg?, no clear criteria on PSG) When I spoke to Ainsley Queen in September 2023 about coordinating fibromyalgia and depression medications, we agreed to trial Duloxetine and Gabapentin titration for fibromyalgia and that the Duloxetine would replace Prozac. Kera is not sure which of the two medications is causing side effects and was instructed to wean off duloxetine and Gabapentin by Dr Medley in walkin 02/16/24. However she is a [facility] patient and did not wean the Duloxetine/Gabapentin. Approximately one week ago, she stoppedthem completely. She says the side effects have lessened, but she also says the feeling of restlessness and dizziness is still there and she is in despair for it. Would prefer to take Tramadol 50mg twice a day while re-titrating Prozac to full dose. I started her Prozac at 20mg today, will advance every 4-6weeks by 10mg, as long as tolerated. Tramadol 50mg BID x 3 months while this Prozac titration is happening. GI issues (C diff infection/weight loss/diarrhea/vomiting) Weight increase to 139 after michael of 118, today 120 Her GI Issues of intermittent nausea and diarrhea are continuing Switched providers from Yanira Santos to Ashley Duncan, last visit 05/2024 Multiple rounds of antibiotics in 2021 and 01/2023 colonoscopy, imipramine 20mg at night, Reglan 02/2023 + cocaine ED utox 03/2023 normal gastric emptying study 04/2023 nl renal US 12/2023 start Imipramine 50mg nightly Colonoscopy Findings: No polyps were detected Friable appearing mucosa with patchy in the left colon - random biopsies were obtained Moderate diverticulosis seen in the sigmoid colon BIOPSIES SHOWED: A. Small bowel, biopsy: Small bowel mucosa with preserved villi and no specific change; no evidenceof celiac disease. B. Gastric antrum, biopsy: Gastric antral mucosa with focal minimal chronic inactive inflammation; negative for H pylori, intestinal metaplasia and dysplasia. C. Gastric fold, biopsy: Gastric body mucosa with minimal chronic inactive gastritis; negative for H pylori, intestinal metaplasia and dysplasia. D. Terminal ileum, biopsy: Ileal mucosa with reactive lymphoid follicles consistent with Peyer's patches, and no specific change; no ileitis, granulomas or dysplasia. E. Colon, right, biopsy: Colonic mucosa with no specific change; no colitis, granulomas or dysplasia. F. Colon, left, biopsy: Colonic mucosa with no specific change; no colitis, granulomas or dysplasia Post Concussion Syndrome ER 08/14/[address] for [address] stairs CT head negative for bleeding Xray of knees and pelvis negative for fracture Fibromyalgia Dx 09/2023 by Rheum Feels tried and weak, cannot hold things, trouble getting dressed. 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 U tox positive in the ER for cocaine and marijuana 02/06/23. She smokes marijuana daily, from the same dealer. Denies explicit or known use of cocaine. Was buying Tramadol off the street. Saw Rheum with complete serologies 06/29/23 JUANITO positive in low titer 2022, saw rheum 06/2023 Dr Wilson Anxiety/bipolar Has therapist and psych prescriber (Ainsley Queen) at [facility] On Seroquel 400mg daily On Prozac 20mg daily, no SE after 2 months, WILL INCREASE to 40mg Clonazepam from 1mg TID On Ropinirole 4mg Health Maintenance Pap- 02/2021, due in 3-5 years Mammo- 09/2023 Birds 1 Imms- declines Patient Active Problem List Diagnosis Allergic rhinitis JUANITO positive Asthma Bipolar disorder (CMS/HCC) Clostridioides difficile infection Gastroesophageal reflux disease Impaired fasting glucose Irritable bowel syndrome Low back pain Migraine Polyarthralgia Myopia of both eyes Renal colic Fecal incontinence Choking episode occurring at night Post concussion syndrome Hematoma of left knee region Sprain of left medial ankle joint Acute left ankle pain Acute bilateral low back pain without sciatica Neck pain Whole body pain Weight loss of more than 10% body weight Need for home health care Diarrhea of presumed infectious origin Fibromyalgia Health care maintenance Family History Problem Relation Name Age of Onset Asthma Mother Other (aunt 1 colon ca ,aunt 2 breast ca) Mother's Sister Social History Social History Narrative Lives with her youngest daughter, other daughter lives in [place] 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 Respiratory: Negative. Cardiovascular: Negative. Gastrointestinal: Positive for abdominal distention, abdominal pain and diarrhea. Musculoskeletal: Positive for arthralgias. Neurological: Positive for dizziness, tremors, weakness and light-headedness. Psych: positive for anxiety OBJECTIVE: Vitals: 05/17/24 1046 BP: 105/62 BP Location: Right arm Patient Position: Sitting BP Cuff Size: Adult Pulse: 71 Resp: 16 Temp: 97.3 ??F (36.3 ??C) TempSrc: Temporal SpO2: 100% Weight: 120 lb (54.4 kg) Height: 5' 7 (1.702 m) Physical Exam Vitals and nursing note reviewed. Constitutional: Appearance: Normal appearance. HENT: Head: Normocephalic and atraumatic. Cardiovascular: Rate and Rhythm: Normal rate and regular rhythm. Pulses: Normal pulses. Heart sounds: Normal heart sounds. Pulmonary: Effort: Pulmonary effort is normal. Breath sounds: Normal breath sounds. Musculoskeletal: TTP over bilateral shoulders, trapezius muscles, knees, and ankles Skin: General: Skin is warm and dry. Neurological: General: No focal deficit present. Mental Status: She is alert and oriented to person, place, and time. Psychiatric: Mood and Affect: Mood is depressed and anxious Behavior: Behavior normal. ASSESSMENT/PLAN Problem List Items Addressed This Visit Bipolar disorder (CMS/HCC) Current Assessment & Plan Continue to focus on relaxation and ease of negative thoughts and anxiety This will help with sleep and pain Increase Prozac to 40mg daily Needs Qtc monitoring for antipsychotic Gastroesophageal reflux disease Post concussion syndrome Weight loss of more than 10% body weight - Primary Fibromyalgia Overview Dx by Rheum 09/2023 She does have positive JUANITO, 1:40 titer, no other signs of autoimmune conditions Current Assessment & Plan Pain is significant right now and located throughout her body, limiting all that she does. Increase Prozac to 40mg Continue imipramine 50mg nightly Could not tolerate gabapentin or lyrica, per pt for nausea, dizziness, feeling of needing to move (which are all things that were present previously) Consider acupuncture, yoga, taichi Reviewed getting small amounts of exercise daily and healthy diet For three months, March 2024- May 2024, pt will be on Tramadol 50mg BID Continue Tramadol BID for now, re-evaluate in 1 month Follow Up: 1 months or sooner prn Allergies Allergen Reactions Cats [Cat Hair Extract] Shrimp Flavor Agent (Non-Screening) Morphine Anxiety Current Outpatient Medications: cholecalciferol VITAMIN D (Vitamin D-3) 50 MCG (1999) tablet, TAKE 1 TABLET BY MOUTH EVERY MORNING, Disp: 90 tablet, Rfl: 3 clonazePAM (KlonoPIN) 1 MG tablet, TAKE 1 TABLET BY MOUTH TWICE DAILY IN THE MORNING AND IN THE EVENING (MAY TAKE ADDITIONAL TABLET NEEDED), Disp: , Rfl: cyproheptadine (Periactin) 4 MG tablet, Take 1 tablet (4 mg) by mouth 2 times daily. For appetite, Disp: 180 tablet, Rfl: 3 diphenhydrAMINE (Dahlia-Dryl) 25 MG tablet, TAKE 1 TABLET BY MOUTH EVERY 4 TO 6 HOURS NEEDED FOR SWELLING, Disp: 90 tablet, Rfl: 2 FLUoxetine (PROzac) 40 MG capsule, Take 1 capsule (40 mg) by mouth Once per day., Disp: 30 capsule,Rfl: 11 fluticasone (Flonase) 50 MCG/ACT nasal spray, INHALE 2 SPRAYS IN EACH NOSTRIL ONCE DAILY DIRECTED, Disp: 48 g, Rfl: 3 gabapentin (Neurontin) 300 MG capsule, TAKE 1 CAPSULE BY MOUTH THREE TIMES DAILY IN THE MORNING, EVENING, AND BEDTIME, Disp: 90 capsule, Rfl: 3 hydrocortisone 2.5 % cream, Apply around the rectum, Disp: 60 g, Rfl: 1 imipramine (Tofranil) 50 MG tablet, Take 1 tablet (50 mg) by mouth at bedtime., Disp: 30 tablet, Rfl: 11 Lactobacillus 0.05-0.05 MG tablet, Take 1 tablet by mouth Once per day., Disp: 90 tablet, Rfl: 3 Levonorgestrel (Mirena, 52 MG,) 20 MCG/DAY intrauterine device, , Disp: , Rfl: Mometasone Furoate (Asmanex HFA) 200 MCG/ACT aerosol, INHALE 1 PUFF TWICE DAILY. RINSE MOUTH AFTER USING., Disp: 13 g, Rfl: 1 montelukast (Singulair) 10 MG tablet, TAKE 1 TABLET BY MOUTH EVERY EVENING FOR ASTHMA, Disp: 90 tablet, Rfl: 3 pantoprazole (ProtoNix) 40 MG EC tablet, Take 40 mg by mouth in the morning and at bedtime., Disp: , Rfl: 27-1 MG tablet, Take 1 tablet by mouth in the morning., Disp: 90 tablet, Rfl: 3 QUEtiapine (SEROquel) 100 MG tablet, TAKE 1/2 TABLET BY MOUTH TWICE DAILY NEEDED, Disp: , Rfl: QUEtiapine (SEROquel) 300 MG tablet, Take 300 mg by mouth at bedtime., Disp: , Rfl: rOPINIRole (Requip) 4 MG tablet, TAKE 1 TABLET BY MOUTH AT BEDTIME, Disp: 90 tablet, Rfl: 0 traMADol (Ultram) 50 MG tablet, Take 1 tablet (50 mg) by mouth every 12 (twelve) hours if needed for severe pain for up to 28 days. Do not start before May 02, 2024., Disp: 56 tablet, Rfl: 0 Uzbek Translation: Provided by [facility] staff member AVINASH Llamas documented in this encounter Miscellaneous Notes * Assessment & Plan Note - Jessi Dueñas MD - 05/20/2024 4:38 PM ESTAssociated Problem(s): Fibromyalgia Pain is significant right now and located throughout her body, limiting all that she does. Increase Prozac to 40mg Continue imipramine 50mg nightly Could not tolerate gabapentin or lyrica, per pt for nausea, dizziness, feeling of needing to move (which are all things that were present previously) Consider acupuncture, yoga, taichi Reviewed getting small amounts of exercise daily and healthy diet For three months, March 2024- May 2024, pt will be on Tramadol 50mg BID Continue Tramadol BID for now, re-evaluate in 1 month * Assessment & Plan Note - Jessi Dueñas MD - 05/20/2024 4:37 PM ESTAssociated Problem(s): Bipolar disorder (CMS/HCC) Continue to focus on relaxation and ease of negative thoughts and anxiety This will help with sleep and pain Increase Prozac to 40mg daily Needs Qtc monitoring for antipsychotic documented in this encounter Plan of Treatment Upcoming Encounters Date Type Department Care Team (Late st Contact Info) Description 07/26/2024 9:45 AM EDT Office Visit [facility] MEDICINE [address] [place] [address] Jessi Dueñas MD [address] [place] [address] documented as of this encounter Visit Diagnoses Diagnosis Weight loss of more than 10% body weight- Primary Post concussion syndrome Postconcussion syndrome Gastroesophageal reflux disease without esophagitis Esophageal reflux Bipolar affective disorder, currently depressed, moderate ([facility]) Bipolar I disorder, most recent episode (or current) depressed, moderate Fibromyalgia Unspecified myalgia and myositis documented in this encounter Additional Health Concerns Assessment Noted Time PHQ-9 Depression Total Score: 8 09/19/19 24 11:07 AM EDT documented as of this encounter Care Teams Dye Tank Tender Relationship Specialty Start Date End Date Jessi Dueñas MD [address] [place] [id number] PCP - General Family Medicine 11/24/20 Mikayla Bhagat Craft DemonstratorHome Care Administrator 05/09/23 documented as of this encounter
--- OUTSIDE RECORDS SUMMARY | 2024-05-27 13:26 | XMS_ITS | Encounter Summary ---
Author Organization [employer] Address [address] [facility] 7t [place] [address] Care Team Providers Care Assisted Living Director Name Role Phone Jessi Dueñas MD Primary Care Provider [phone] Encounter Details Date Type Department Care Team ([facility] st Contact Info) Description 02/08/2023 Telephone [facility] MEDICINE [address] [place], [place] [phone] Jessi Dueñas MD [address] [place], [place] [phone] Social History Tobacco Use Types Packs/Day Years [...] 07/26/2024 9:45 AM EDT Office Visit [facility] MEDICINE [address] [place] [address] Jessi Dueñas MD [address] [place] [address] documented as of this encounter Visit Diagnoses Not on filedocumented in this encounter Additional Health Concerns Assessment Noted Time PHQ-9 Depression Total Score: 20 023 9:49 AM EDT documented as of this encounter Care Teams Assisted Living Director Relationship Specialty Start Date End Date Jessi Dueñas MD [address] [place] [address] PCP - General Family Medicine 11/24/20 Mikayla Bhagat Meat LuggerDocumentation Clerk 05/09/23 documented as of this encounter
--- OUTSIDE RECORDS SUMMARY | 2024-05-27 13:26 | XMS_ITS | Encounter Summary ---
Author Organization [employer] Address [address] [facility] 7t [place] [address] Care Team Providers Care Annealing Furnace Operator Name Role Phone Jessi Dueñas MD Primary Care Provider [phone] Encounter Details Date Type Department Care Team (Latest Contact Info) Description 05/17/2024 Travel Social History Tobacco Use Types Packs/Day Years [...] is your housing situation today? I have bolajovita john 05/09/[address] you [...] Description 07/26/2024 9:45 AM EDT Office Visit [facility] MEDICINE [address] [place], [place] [phone] Jessi Dueñas MD [address] [place] [address] documented as of this encounter Visit Diagnoses Not on filedocumented in this encounter Additional Health Concerns Assessment Noted Time PHQ-9 Depression Total Score: 8 09/19/19 24 11:07 AM EDT documented as of this encounter Care Teams Annealing Furnace Operator Relationship Specialty Start Date End Date Jessi Dueñas MD [address] [place] [phone] PCP - General Family Medicine 11/24/20 Mikayla Bhagat Floor FinisherBaking Powder Mixer 05/09/23 documented as of this encounter
--- OUTSIDE RECORDS SUMMARY | 2024-05-27 13:26 | XMS_ITS | Encounter Summary ---
Author Organization [employer] Address [address] [facility] 7 [place] [address] Care Team Providers Care Screw Machine Tender Name Role Phone Jessi Dueñas MD Primary Care Provider [phone] Reason for Visit * Reason Onset Date Comments Med Refill 04/29/2024 Encounter Details Date Type Department Care Team ([facility] st Contact Info) Description 04/29/2024 Refill [facility] MEDICINE [address] [place], [place] [phone] Jessi Dueñas MD [address] [place], [place] [phone] Fibromyalgia Social History Tobacco Use Types Packs/Day [...] 50 MG tablet To be sent to: [facility] pharmacy documented in this encounter Plan of Treatment Upcoming Encounters Date Type Department Care Team (Late st Contact Info) Description 07/26/2024 9:45 AM EDT Office Visit [facility] MEDICINE [address] [place] [address] Jessi Dueñas MD [address] [place] [address] documented as of this encounter Visit Diagnoses Diagnosis Fibromyalgia Unspecified myalgia and myositis documented in this encounter Additional Health Concerns Assessment Noted Time PHQ-9 Depression Total Score: 8 09/19/19 24 11:07 AM EDT documented as of this encounter Care Teams Screw Machine Tender Relationship Specialty Start Date End Date Jessi Dueñas MD [address] [place] [id number] PCP - General Family Medicine 11/24/20 Mikayla Bhagat Video TechnicianParking Control Officer 05/09/23 documented as of this encounter
--- OUTSIDE RECORDS SUMMARY | 2024-05-27 13:26 | XMS_ITS | Encounter Summary ---
Author Organization [employer] Address [address] 7t [place] [address] Care Team Providers Care Work Counselor Name Role Phone Jessi Dueñas MD Primary Care Provider [phone] Reason for Visit * Reason Onset Date Comments Nurse Triage 02/07/2023 Encounter Details Date Type Department Care Team ([facility] st Contact Info) Description 02/07/2023 Telephone [facility] MEDICINE [address] [place] [address] Jessi Dueñas MD [address] [place] [address] Nurse Triage Social History Tobacco Use Types [...] 02/07/2023 11:26 AM EST Triage call with [employer] ID [id number] Pt reports ED visit @ [facility] 02/06/23 for abdominal pain and migraines. Report is requested from [facility] clinical home health care worker. Pt reports was supposed to be getting [...] worse * Telephone Encounter - Jose R Martinez - 02/07/2023 10:22 AM EST Symptom: Abdominal Pain - Female - Not and migraine Outcome: Schedule an urgent appointment (within 4 hours) or talk to a nurse or provider soon Reason: Getting worse The caller accepted this outcome Tc from patient calling in regards to migraine and abdominal pain also lower back pain states she went to [facility] last on 02/06 and did nothing. Patient speaks english documented in this encounter Plan of Treatment Upcoming Encounters Date Type Department Care Team (Late st Contact Info) Description 07/26/2024 9:45 AM EDT Office Visit [facility] MEDICINE [address] [place] [address] Jessi Dueñas MD [address] [place] [address] documented as of this encounter Visit Diagnoses Not on filedocumented in this encounter Additional Health Concerns Assessment Noted Time PHQ-9 Depression Total Score: 20 023 9:49 AM EDT documented as of this encounter Care Teams Work Counselor Relationship Specialty Start Date End Date Jessi Dueñas MD [address] [place] [address] PCP - General Family Medicine 11/24/20 Mikayla Bhagta Vamp PresserCustomer Success Specialist 05/09/23 documented as of this encounter
--- OUTSIDE RECORDS SUMMARY | 2024-05-27 13:26 | XMS_ITS | Encounter Summary ---
Author Organization [employer] [facility] Address [address] [facility] 7t [place] [address] Care Team Providers Care Forest Worker Name Role Phone Jessi Dueñas MD Primary Care Provider [phone] Reason for Visit * Reason Comments Vomiting Diarrhea Encounter Details Date Type Department Care Team ([facility] st Contact Info) Description 05/25/2024 9:40 AM EST Office Visit [facility] [address] [place] [address] [phone] Name, MD Ignacio [address] [place] [phone] Diarrhea, unspecified type (Primary Dx); Nausea and vomiting, unspecified vomiting type Social History Tobacco Use Types Packs/Day Years [...] your housing situation today? I have bola alvaro 05/09/[address] you li [...] Sign Reading Time Taken Comments Blood Pressure 106/70 05/25/2024 9:40 AM EST Pulse 74 05/25/2024 9:40 AM EST Temperature 36.8 ??C (98.2 ??F) 05/25/2024 9:40 AM ES T Respiratory Rate 20 05/25/2024 9:40 AM EST Oxygen Saturation 96% 05/25/2024 9:40 AM EST Inhaled Oxygen Concentration - - Weight 53.3 kg (117 lb 8 oz) 05/25/2024 9:40 AM EST Height 170.2 cm (5' 7 ) 05/25/2024 9:40 AM EST Body Mass Index 18.4 05/25/2024 9:40 AM EST documented in this encounter Progress Notes * Ignacio Rivera MD - 05/25/2024 9:40 AM EST Subjective Patient ID: Kera Nicole is a 43 y.o. female who presents for Vomiting and Diarrhea. Patient comes for a sick visit. She complains of chronic nausea, vomiting, anorexia, diarrhea. She has more than a year with the symptoms. She was treated for C. difficile in the past. She follows with GI and had extensive workup including blood work and colonoscopy. The patient has medication at home for symptomatic treatment of IBS including ondansetron. The patient explains to me that she has been vomiting despite the use of ondansetron. She is having a hard time tolerating p.o. liquids. Rapid testing was negative today for flu and COVID. Review of Systems Constitutional: Negative for chills and fever. HENT: Negative for sore throat. Respiratory: Negative for cough, shortness of breath and wheezing. Cardiovascular: Negative for chest pain, palpitations and leg swelling. Gastrointestinal: See HPI Visit Vitals BP 106/70 (BP Location: Right arm, Patient Position: Sitting, BP Cuff Size: Adult) Pulse 74 Temp 98.2 ??F (36.8 ??C) (Oral) Resp 20 Ht 5' 7 (1.702 m) Wt 117 lb 8 oz (53.3 kg) SpO2 96% BMI 18.40 kg/m?? Smoking Status Never BSA 1.59 m?? Objective Physical Exam Constitutional: Appearance: Normal appearance. Cardiovascular: Rate and Rhythm: Normal rate and regular rhythm. Pulmonary: Effort: Pulmonary effort is normal. Breath sounds: Normal breath sounds. Abdominal: Tenderness: There is no abdominal tenderness. There is no guarding. Musculoskeletal: Right lower leg: No edema. Left lower leg: No edema. Neurological: Mental Status: She is alert. Latest Reference Range & Units 05/25/24 09:51 05/25/24 09:52 Influenza A Negative, Indeterminate Negative Influenza B Negative, Indeterminate Negative QC Media Lot # [id number] Rapid COVID Ag Negative Assessment/Plan Diagnoses and all orders for this visit: Diarrhea, unspecified type Comments: Continue symptomatic treatment at home. Keep follow-up appointment with GI. I recommended to go to the ER for IV fluids if she is unable to keep p.o. liquids down. Orders: - POCT Rapid Influenza B BOYER ID NOW - POCT Rapid Influenza A BOYER ID NOW - POCT Rapid Covid-19 BinaxNOW Nausea and vomiting, unspecified vomiting type - POCT Rapid Influenza B BOYER ID NOW - POCT Rapid Influenza A BOYER ID NOW - POCT Rapid Covid-19 BinaxNOW documented in this encounter Plan of Treatment Upcoming Encounters Date Type Department Care Team (Late st Contact Info) Description 07/26/2024 9:45 AM EDT Office Visit [facility] [address] [place] [address] Jessi Dueñas MD [address] [place] [address] documented as of this encounter Procedures Procedure Name Priority Date/Time Associated Diagnosis Comments POCT INFLUENZA B (ID NOW RAPID MOLECULAR) Routine 05/25/2024 9:52 AM EST Diarrhea, unspecified type Nausea and vomiting, unspecified vomiting type POCT INFLUENZA A (ID NOW RAPID MOLECULAR) Routine 05/25/2024 9:51 AM EST Diarrhea, unspecified type Nausea and vomiting, unspecified vomiting type POCT RAPID COVID ANTIGEN Routine 05/25/2024 9:51 AM EST Diarrhea, unspecified type Nausea and vomiting, unspecified vomiting type documented in this encounter Results * POCT Rapid Influenza B BOYER ID NOW (05/25/2024 9:52 AM EST) [facility] Influenza B Negative Negative, Indeterminate [facility] QC Media Lot # [id number] [facility] Lot# Expiration Date [facility] Swab 05/25/2024 9:52 AM EST us Ignacio Rivera MD POINT OF CARE TEST ENTER/EDIT OR DERABLES Final Result [facility] [address] [place] [phone] [phone] * POCT Rapid Covid-19 BinaxNOW (05/25/2024 9:51 AM EST) [facility] Rapid COVID Ag Negative QC Media Lot # [id number] Lot# Expiration Date Swab 05/25/2024 9:51 AM EST us Ignacio Rivera MD POINT OF CARE TEST ENTER/EDIT OR DERABLES Final Result * POCT Rapid Influenza A BOYER ID NOW (05/25/2024 9:51 AM EST) Influenza A Negative Negative, Indeterminate [facility] QC Media Lot # [id number] [facility] Lot# Expiration Date [id number] [facility] Swab 05/25/2024 9:51 AM EST Ignacio Name POINT OF CARE TEST ENTER/EDIT OR DERABLES Final Result Performing Organization Address City/State/[facility] Co de Phone Number [facility] [address] [place] [phone] documented in this encounter Visit Diagnoses Diagnosis Diarrhea, unspecified type- Primary Nausea and vomiting, unspecified vomiting type documented in this encounter Additional Health Concerns Assessment Noted Time PHQ-9 Depression Total Score: 8 09/19/19 24 11:07 AM EDT documented as of this encounter Care Teams Forest Worker Relationship Specialty Start Date End Date Jessi Dueñas MD [address] [place] [phone] PCP - General Family Medicine 11/24/20 Mikayla Bhagat Business Owner/EngineerEstimate Clerk 05/09/23 documented as of this encounter
--- OUTSIDE RECORDS SUMMARY | 2024-05-27 13:26 | XMS_ITS | Encounter Summary ---
Author Organization [employer] [facility] Address [address] 7 [place] [address] Care Team Providers Care Housekeeping Attendant Name Role Phone Jessi Dueñas MD Primary Care Provider Reason for Visit * Reason Onset Date Comments Care Management 05/27/2024 [facility]- chart revi ew Encounter Details Date Type Department Care Team ([facility] st Contact Info) Description 05/27/2024 Telephone [facility] MEDICINE [address] [place] [address] Jessi Dueñas MD [address] [place] [address] Care Management (C3CM- chart review) Social History Tobacco Use Types Packs/Day Years [...] encounter Miscellaneous Notes * Telephone Encounter - Wilder Peterson RN - 05/27/2024 8:54 AM EST TYRA Peterson RN, performed chart review, in anticipation of initial assessment with patient, aspatient has stratified for [facility]3 Adult Complex Care through the ADT feed. History significant for allergic rhinitis, JUANITO positive, asthma, bipolar disorder, C.diff, GERD, impaired fasting glucose, irritable bowel syndrome, low back pain, migraine, polyarthralgia, myopia of both eyes, renal colic, fecal incontinence, chocking episode occurring at night, post- concussion syndrome, fibromyalgia, diarrhea of presumed infectious origin, weight loss of more than 10% body weight, whole body pain, neck pain . Specialists include [facility], neurology, rheumatology arthritis treatment center, [facility] orthopedic surgery, sleep medicine, [facility] optometry, ENT, [facility] GI, [facility] Women's. ED visits within the last 12 months include [facility] 05/25. Last appointment in PCP office on 05/25. Next appointment scheduled for 07/26 with PCP. documented in this encounter Plan of Treatment Upcoming Encounters Date Type Department Care Team ([facility] Contact Info) Description 07/26/2024 9:45 AM EDT Office Visit [facility] MEDICINE [address] [place] [address] Jessi Dueñas MD [address] [place] [address] documented as of this encounter Visit Diagnoses Not on filedocumented in this encounter Additional Health Concerns Assessment Noted Time PHQ-9 Depression Total Score: 8 09/19/19 24 11:07 AM EDT documented as of this encounter Care Teams Housekeeping Attendant Relationship Specialty Start Date End Date Jessi Dueñas MD [address] [place], [place] [phone] PCP - General Family Medicine 11/24/20 Mikayla Bhagat Continuous Drier HelperWelding Tester 05/09/23 documented as of this encounter
--- OUTSIDE RECORDS SUMMARY | 2024-05-27 13:26 | XMS_ITS | Encounter Summary ---
Author Organization [employer] Address [address] [facility] 7t [place] [address] Care Team Providers Care Chair Frame Builder Name Role Phone Jessi Dueñas MD Primary Care Provider [phone] Encounter Details Date Type Department Care Team ([facility] st Contact Info) Description 05/18/2023 Telephone [facility] MEDICINE [address] [place], [place] [phone] Jessi Dueñas MD [address] [place], [place] [phone] Social History Tobacco Use Types Packs/Day Years [...] Lopez RN - 05/18/2023 8:48 AM EST DIRECTOR OF SECURITIES AND REAL ESTATE referral made to [facility], referral form faxed with confirmation of receipt. documented in this encounter Plan of Treatment Upcoming Encounters Date Type Department Care Team (Late st Contact Info) Description 07/26/2024 9:45 AM EDT Office Visit [facility] MEDICINE [address] [place] [address] Jessi Dueñas MD [address] [place] [address] documented as of this encounter Visit Diagnoses Not on filedocumented in this encounter Additional Health Concerns Assessment Noted Time PHQ-9 Depression Total Score: 20 023 9:49 AM EDT documented as of this encounter Care Teams Chair Frame Builder Relationship Specialty Start Date End Date Jessi Dueñas MD [address] [place] [address] PCP - General Family Medicine 11/24/20 Mikayla Bhagat Design AgentConverting Supervisor 05/09/23 documented as of this encounter
--- OUTSIDE RECORDS SUMMARY | 2024-05-27 13:26 | XMS_ITS | Encounter Summary ---
Author Organization [employer] Address [address] [facility] 7t [place] [address] Care Team Providers Care Clinical Program Coordinator Name Role Phone Jessi Dueñas MD Primary Care Provider [phone] Encounter Details Date Type Department Care Team (Late st Contact Info) Description 05/17/2024 Orders Only GENERIC EXTERNAL DATA DEPARTMENT Provider, [...] Description 07/26/2024 9:45 AM EDT Office Visit [facility] MEDICINE [address] [place], [place] [phone] Jessi Dueñas MD [address] [place], [place] [phone] documented as of this encounter Procedures Procedure Name Priority Date/Time Associated Diagnosis Comments VITAMIN D 25-OH (D2 AND D3) Routine 05/17/2024 9:40 AM EST VITAMIN B12/FOLATE, SERUM PANEL Routine 05/17/2024 9:40 AM EST TSH W/REFLEX TO FT4 Routine 05/17/2024 9 :40 AM EST HEPATITIS PANEL, GENERAL Routine 05/17/2024 9:40 AM EST HIV 1/2 ANTIGEN/ANTIBODY, FOURTH GENERATION W/RFL Routine 05/17/2024 9:40 AM EST LIPASE Routine 05/17/2024 9:40 AM EST HEPATIC FUNCTION PANEL Routine 05/17/2024 9:40 AM EST documented in this encounter Results * VITAMIN D 25-OH (D2 AND D3) (05/17/2024 9:40 AM EST) Vitamin D, 25-OH, D2 <4 ng/mL [facility] Comment:This test was develo ped and its analytical performancecharacteristics have been determined by [employer], [place]. It hasnot been cleared or approved by the .[place]. Food and DrugAdministration. This assay has been validated pursuantto the CLIA regulations and is used for clinicalpurposes.THIS TEST WAS PERFORMED AT:[id number] [place] [address]MHYUTNEKHANG MADRID MD,PHD Vitamin D, 25-OH, D3 31 ng/mL [facility] Comment:This test was develo ped and its analytical performancecharacteristics have been determined by [employer] [place], [place]. It hasnot been cleared or approved by the U.S. Food and DrugAdministration. This assay has been validated pursuantto the CLIA regulations and is used for clinicalpurposes. Vitamin D, 25-OH, Total 31 30 - 100 ng/mL [facility] Comment:Vitamin D, 25-Hydrox y reports concentrations of twocommon forms, 25-OHD2 and 25-OHD3. 25-OHD3 indicatesboth endogenous production and supplementation.25-OHD2 is an indicator of exogenous sources such asdiet or supplementation. Therapy is based onmeasurement of Total 25-OHD, with levels <20 ng/mLindicative of Vitamin D deficiency, while levelsbetween 20 ng/mL and 30 ng/mL suggest insufficiency.Optimal levels are > or = 30 ng/mL.For additional information, please refer [email or web address] ([employer])/faq/UXU129(This link is being provided for informational/educational purposes only.) 05/17/2024 9:40 AM EST 05/17/2024 9:40 AM EST us Generic External Data Provider LAB BLOOD ORDERAB LES Final Result [facility] [address] [place] [phone] * Vitamin B12 (Cobalamin) and Folate Panel, Serum (05/17/2024 9:40 AM EST) Vitamin B12 474 200 - 900 pg/mL [facility] Comment:NORMAL 200-900 PG/ML INDETERMINATE 160-199 PG/ML DEFICIENT < 160 PG/ML Folate 15.2 > or = 4.0 ng/mL [facility] Comment:Reference Values:> o r = 4.0 ng/mL< 4.0 ng/mL suggests folate deficiency Methotrexate, aminopterin and folinic acid(leucovorin) are chemotherapeutic agents whose molecularstructures are similar to folate; therefore, the Architectfolate assay cannot be used for patients using these drugs. 05/17/2024 9:40 AM EST 05/17/2024 9:40 AM EST us Generic External Data Provider LAB BLOOD ORDERAB LES Final Result [facility] [address] [place] [phone] * HIV-1/2 Antigen and Antibodies, Fourth Generation, with Reflexes (05/17/2024 9:40 AM EST) Pathologist [facility] HIV AB/AG Nonreactive Nonreactive [facility] Comment:HIV-1 p24 Ag and/or HIV-1/HIV-2 Ab not detected.A test result that is nonreactive does not exclude thepossibility of exposure to or infection with HIV-1 and/orHIV-2. Nonreactive results in this assay for individualswith prior exposure to HIV-1 and/or HIV-2 may be due toantigen and antibody levels that are below the limit ofdetection of this assay.The [employer] HIV Ag/Ab Combo assay result andsupplemental assay results should be interpreted inconjunction with the patient's clinical presentation,history and other laboratory results. If the results areinconsistent with clinical evidence, additional testing issuggested to confirm the result. 05/17/2024 9:40 AM EST 05/17/2024 9:40 AM EST us Generic External Data Provider LAB BLOOD ORDERAB LES Final Result Performing Organization Address City/[facility]/ZIP Co de Phone Number [facility] [address] [place] [phone] * Hepatitis Panel, General (05/17/2024 9:40 AM EST) Hepatitis A IgM Nonreactive Nonreactive [facility] Comment:IgM antibodies to AMAYA V not detected; does not exclude earlyacute or recovered HAV infection. ~Hepatitis B Surface Antibody REACTIVE Nonreactive [facility] Comment:REACTIVE: > 11.99 mI U/mL Hepatitis B Core Antibody Nonreactive Nonreactive [facility] Hepatitis C Antibody Nonreactive Nonreactive [facility] Comment:Antibodies to HCV no t detected; does not exclude early acuteHCV infection. Hepatitis B Surface Ag Negative Negative [facility] 05/17/2024 9:40 AM EST 05/17/2024 9:40 AM EST us Generic External Data Provider LAB BLOOD ORDERAB LES Final Result Performing Organization Address City/[facility]/ZIP Co de Phone Number [facility] [address] [place] [phone] * TSH with Reflex to Free T4 (05/17/2024 9:40 AM EST) TSH reflex Free T4 1.12 0.32 - 4.0 uIU/mL [facility] 05/17/2024 9:40 AM EST 05/17/2024 9:40 AM EST us Generic External Data Provider LAB BLOOD ORDERAB LES Final Result Performing Organization Address City/[facility] Co de Phone Number [facility] [address] [place] [phone] * Lipase (05/17/2024 9:40 AM EST) Lipase 15 8 - 78 U/L [facility] 05/17/2024 9:40 AM EST 05/17/2024 9:40 AM EST us Generic External Data Provider LAB BLOOD ORDERAB LES Final Result Performing Organization Address [facility] de Phone Number [facility] [address] [place] [phone] * Hepatic Function Panel (05/17/2024 9:40 AM EST) Bilirubin, Total 0.5 0.0 - 1.0 mg/dL [facility] Bilirubin, Direct 0.2 0.0 - 0.5 mg/dL [facility] Aspartate Amino Transferase 26 5 - 31 U/L [facility] Alanine Aminotransferase 25 0 - 31 U/L [facility] Total Protein 8.0 6.5 - 8.0 g/dL [facility] Albumin Level 4.6 3.5 - 5.0 g/dL [facility] Alkaline Phosphatase 55 39 - 117 U/L [facility] 05/17/2024 9:40 AM EST 05/17/2024 9:40 AM EST Generic External Data Provider LAB BLOOD ORDERAB LES Final Result Performing Organization Address [facility] Phone Number [facility] [address] [place] [phone] documented in this encounter Visit Diagnoses Not on filedocumented in this encounter Additional Health Concerns Assessment Noted Time PHQ-9 Depression Total Score: 8 09/19/19 24 11:07 AM EDT documented as of this encounter Care Teams Clinical Program Coordinator Relationship Specialty Start Date End Date Jessi Dueñas MD [address] [place] [phone] PCP - General Family Medicine 11/24/20 Mikayla Bhagat Autocad TechnicianWater Reclamation Systems Operator 05/09/23 documented as of this encounter
--- OUTSIDE RECORDS SUMMARY | 2024-05-27 13:27 | XMS_ITS | Encounter Summary ---
Author Organization [employer] [facility] Address [address] [facility] 7t [place] [address] Care Team Providers Care Administrative Assistant Front Desk Name Role Phone Jessi Dueñas MD Primary Care Provider [phone] Encounter Details Date Type Department Care Team (Late Contact Info) Description 03/29/2022 Orders Only [facility] [address] [place] [phone] Jessi Dueñas MD [address] [place] [address] [phone] Choking episode occurring at night (Primary Dx) [...] Department Care Team (Late Contact Info) Description 07/26/2024 9:45 AM EDT Office Visit [facility] [address] [place] [address] [phone] Jessi Dueñas MD [address] [place] [address] documented as of this encounter Visit Diagnoses Diagnosis Choking episode occurring at night- Primary documented in this encounter Care Teams Administrative Assistant Front Desk Relationship Specialty Start Date End Date Jessi Dueñas MD [address] [place], [place] [phone] PCP - General Family Medicine 11/24/20 Mikayla Bhagat Lead Enterprise ArchitectPlant Assigner 05/09/23 documented as of this encounter
--- OUTSIDE RECORDS SUMMARY | 2024-05-27 13:27 | XMS_ITS | Encounter Summary ---
Author Organization [employer] Address [address] [facility] 7t [place] [address] Care Team Providers Care Supervisor Soldering Name Role Phone Jessi Dueñas MD Primary Care Provider [phone] Reason for Visit * Reason Comments Med Refill Encounter Details Date Type Department Care Team ([facility] st Contact Info) Description 11/23/2023 Refill [facility] MEDICINE [address] [place], [place] [phone] Jessi Dueñas MD [address] [place] [address] Social History Tobacco Use Types Packs/Day Years [...] EDT Office Visit [facility] MEDICINE [address] [place] [address] Jessi Dueñas MD [address] [place] [address] documented as of this encounter Visit Diagnoses Not on filedocumented in this encounter Additional Health Concerns Assessment Noted Time PHQ-9 Depression Total Score: 8 09/19/19 24 11:07 AM EDT documented as of this encounter Care Teams Supervisor Soldering Relationship Specialty Start Date End Date Jessi Dueñas MD [address] [place] [address] PCP - General Family Medicine 11/24/20 Mikayla Bhagat Product Safety AssociateManufacturers Representative 05/09/23 documented as of this encounter
--- OUTSIDE RECORDS SUMMARY | 2024-05-27 13:27 | XMS_ITS | Encounter Summary ---
Author Organization [facility] Address [address] 7 [place] [address] Care Team Providers Care Customer Service And Sales Consultant Name Role Phone Jessi Dueñas MD Primary Care Provider [phone] Reason for Visit * Reason Onset Date Comments Med Refill Tramadol refill denied 10/25/2023 Encounter Details Date Type Department Care Team (Late st Contact Info) Description 10/25/2023 Refill [facility] MEDICINE [address] [place] [address] Jessi Dueñas MD [address] [place] [address] Fibromyalgia Social History Tobacco Use Types Packs/Day [...] call her, when I get back from [place] and we can review this. Thank you! TC via P/I#[id number], unable to connect to the number, unable to leave message. Will forward message to PCP's M.A. to schedule a telephone appointment for patient as PCP requested. documented in this encounter Plan of Treatment Upcoming Encounters Date Type Department Care Team (Late st Contact Info) Description 07/26/2024 9:45 AM EDT Office Visit [facility] MEDICINE [address] [place], [place] [phone] Jessi Dueñas MD [address] [place] [address] documented as of this encounter Visit Diagnoses Diagnosis Fibromyalgia Unspecified myalgia and myositis documented in this encounter Additional Health Concerns Assessment Noted Time PHQ-9 Depression Total Score: 8 09/19/19 24 11:07 AM EDT documented as of this encounter Care Teams Customer Service And Sales Consultant Relationship Specialty Start Date End Date Jessi Dueñas MD [address] [place] [address] PCP - General Family Medicine 11/24/20 Mikayla Bhagat Bow MakerData Virtualization Consultant 05/09/23 documented as of this encounter
--- OUTSIDE RECORDS SUMMARY | 2024-05-27 13:27 | XMS_ITS | Encounter Summary ---
Author Organization [facility] Address [address] [place] [address] Care Team Providers Care Supervisor Cigar Processing Name Role Phone Jessi Dueñas MD Primary Care Provider [phone] Encounter Details Date Type Department Care Team ([facility] st Contact Info) Description 09/22/2023 Orders Only [facility] MEDICINE [address] [place], [place] [phone] Jessi Dueñas MD [address] [place], [place] [phone] Social History Tobacco Use Types Packs/Day Years [...] Description 07/26/2024 9:45 AM EDT Office Visit [facility] MEDICINE [address] [place] [address] Jessi Dueñas MD [address] [place] [phone] documented as of this encounter Visit Diagnoses Not on filedocumented in this encounter Additional Health Concerns Assessment Noted Time PHQ-9 Depression Total Score: 8 09/19/19 24 11:07 AM EDT documented as of this encounter Care Teams Supervisor Cigar Processing Relationship Specialty Start Date End Date Jessi Dueñas MD [address] [place] [phone] PCP - General Family Medicine 11/24/20 Mikayla Bhagat Triple Valve TesterErp Technical Lead 05/09/23 documented as of this encounter
--- OUTSIDE RECORDS SUMMARY | 2024-05-27 13:27 | XMS_ITS | Encounter Summary ---
Author Organization [employer] Address [address] [facility] [address] [place] [address] Care Team Providers Care Director Of Health Care Marketing Name Role Phone Jessi Dueñas MD Primary Care Provider [phone] Reason for Visit * Reason Comments Med Refill Encounter Details Date Type Department Care Team ([facility] st Contact Info) Description 10/25/2023 Refill [facility] MEDICINE [address] [place] [address] Anita Arriaga MD [address] [place] [address] Social History Tobacco Use Types Packs/Day Years [...] Description 07/26/2024 9:45 AM EDT Office Visit [facility] MEDICINE [address] [place] [address] Jessi Dueñas MD [address] [place] [address] documented as of this encounter Visit Diagnoses Not on filedocumented in this encounter Additional Health Concerns Assessment Noted Time PHQ-9 Depression Total Score: 8 09/19/19 24 11:07 AM EDT documented as of this encounter Care Teams Director Of Health Care Marketing Relationship Specialty Start Date End Date Jessi Dueñas MD [address] [place] [address] PCP - General Family Medicine 11/24/20 Mikayla Bhagat Chimney BuilderAccounting Representative 05/09/23 documented as of this encounter
--- OUTSIDE RECORDS SUMMARY | 2024-05-27 13:27 | XMS_ITS | Clinical Summary ---
Author Organization [place] Address [address] [facility] [address] [place] [address] Care Team Providers Care Vocational Rehabilitation Consultant Name Role Phone Jessi Dueñas MD Primary Care Provider [phone] Allergies Active Allergy Reactions Criticality Noted Date [...] FOR SWELLING 90 tablet 2 023 Active cyproheptadine (Periactin) 4 MG tablet Take 1 tablet (4 mg) by mouth 2 times daily. For appetite 180 tablet 3 024 2024 Active imipramine (Tofranil) 50 MG tablet Take 1 tablet (50 mg) by mouth at bedtime. 30 tablet 11 024 2024 Active cholecalciferol VITAMIN D (Vitamin D-3) 50 MCG (2000 UT) tablet TAKE 1 TABLET BY MOUTH EVERY MORNING 90 tablet 3 024 Active montelukast (Singulair) 10 MG tablet TAKE 1 TABLET BY MOUTH EVERY EVENING FOR ASTHMA 90 tablet 3 024 Active gabapentin (Neurontin) 300 MG capsule TAKE 1 CAPSULE BY MOUTH THREE TIMES DAILY IN THE MORNING, EVENING, AND BEDTIME 90 capsule 3 024 Active Mometasone Furoate (Asmanex HFA) 200 MCG/ACT aerosol INHALE 1 PUFF TWICE DAILY. RINSE MOUTH AFTER USING. 13 g 1 024 Active rOPINIRole (Requip) 4 MG tabletIndications :Restless leg syndrome TAKE 1 TABLET BY MOUTH AT BEDTIME 90 tablet 024 Active Lactobacillus 0.05-0.05 MG tabletIndications :Weight loss of more than 10% body weight Take 1 tablet by mouth Once per day. 90 tablet 3 025 Active hydrocortisone 2.5 % cream Apply around the rectum 60 g 1 025 Active traMADol (Ultram) 50 MG tabletIndications [...] DAILY DIRECTED 48 g 3 025 Active FLUoxetine (PROzac) 40 MG capsule Take 1 capsule (40 mg) by mouth Once per day. 30 capsule 11 025 2025 Active 27-1 MG tablet Take 1 tablet by mouth in the morning. 90 tablet 3 025 Active loperamide (Imodium) 2 MG capsule TAKE 2 CAPSULES BY MOUTH THREE TIMES DAILY NEEDED FOR LOOSE STOOL 024 2024 Discontinued(T herapy completed) fluticasone (Flonase) 50 MCG/ACT nasal sprayIndications: Allergic rhinitis, unspecified seasonality, unspecified trigger USE 2 SPRAY IN EACH NOSTRIL EVERY DAY DIRECTED 48 g 3 024 2024 Discontinued famotidine (Pepcid) 20 MG tabletIndications :Gastroesophageal reflux disease without esophagitis TAKE 1 TABLET BY MOUTH EVERY EVENING 90 tablet 3 024 2024 Discontinued(T herapy completed) Diclofenac Sodium 1 % gel Apply 1 Application topically 2 times daily. To joints that hurt 100 g 3 024 2024 Discontinued(T herapy completed) loratadine (Claritin) 10 MG tablet TAKE 1 TABLET BY MOUTH EVERY DAY 90 tablet 3 024 2024 Discontinued(T herapy completed) riboflavin (vitamin B2) 100 mg tablet tablet TAKE 4 TABLETS BY MOUTH ONCE DAILY 360 tablet 024 2024 Discontinued(T herapy completed) ondansetron ODT (Zofran-ODT) 8 MG disintegrating tablet DISSOLVE 1 TABLET BY MOUTH EVERY TWELVE HOURS 024 2024 Discontinued(T herapy completed) 27-1 MG tablet TAKE 1 TABLET BY MOUTH EVERY MORNING 90 tablet 3 024 2024 Discontinued(R eorder (will not trigger notification to Pharmacy)) FLUoxetine (PROzac) 20 MG capsule Take 1 capsule (20 mg) by mouth Once per day. 90 capsule 3 024 2024 Discontinued traMADol (Ultram) 50 [...] signs of autoimmune conditions Assessment & Plan (05/20/2024 4:38 PM EST): Pain is significant right now [...] BID for now, re-evaluate in 1 month Assessment & Plan (03/05/2024 3:37 PM EST): [...] & Plan (12/08/2023 9:32 AM EDT): From marketing technology specialist last apt 09/2023 Labs showed low titer [...] & Plan (10/06/2023 12:39 PM EDT): From marketing technology specialist last apt 09/2023 Labs showed low titer [...] & Plan (09/19/2023 6:11 PM EDT): From marketing technology specialist last apt 09/2023 Labs showed low titer [...] for 10/04/2023 Diarrhea of presumed infectious origin Assessment & Plan (07/07/2023 8:34 AM EDT): Will check again for C diff Probiotics Small regular meals Need for home health care 05/17/2023 Assessment & Plan (05/19/2023 10:34 AM EST): She has already asked an agency to do [employer] evaluation To go to medical records and [...] (05/19/2023 10:31 AM EST): Plan to see [facility] rheumatology in June 2023, JUANITO + , [...] 12:59 PM EST): Will send referral to [facility] rheumatology, JUANITO + , whole body pain, fatigue, all worse after two episodes of C diff Still likely fibromyalgia Recommend avoidance of marijuana and cocaine, drugs purchased on the street Assessment & Plan (01/04/2023 7:56 PM EDT): Will send referral to [facility] rheumatology, JUANITO + , whole body pain, [...] aware of side effects, somnolence, 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 Neck pain 10/27/2022 [...] Will check sleep study for possible KATHARINE/apnea JUANITO positive 03/10/2022 Assessment & Plan (02/20/2023 12:56 PM EST): Call [facility] to get appointment at their Rheum clinic Polyarthralgia 03/10/2022 Myopia of both eyes 03/10/2022 Clostridioides difficile infection 01/03/2022 Assessment & [...] congestion Bipolar disorder 04/03/1957 Assessment & Plan (05/20/2024 4:37 PM EST): Continue to focus on relaxation and ease of negative thoughts and anxiety This will help with sleep and pain Increase Prozac to 40mg daily Needs Qtc monitoring for antipsychotic Assessment & Plan (03/05/2024 3:34 PM EST): [...] options Impaired fasting glucose 04/03/1957 Migraine 04/03/1957 Resolved Problems Problem Noted Date Diagnosed Date Resolved Date Acute ethmoidal sinusitis 03/10/2022 Sinusitis 03/10/2022 05/20/2024 Encounters Date Type Department Care Team Description 05/27/2024 Patient Outreach [facility] [address] [place] [address] [phone] Jessi Dueñas MD Care Coordination (C3 -[facility] Alma Delia Doshi telephone call outreach /) 05/27/2024 Patient Outreach [facility] [address] [place] [address] [phone] Jessi Dueñas MD Care Coordination (C3 -[facility] Alma Delia Doshi telephone call outreach) 05/27/2024 Telephone [facility] [address] [place] [address] [phone] Jessi Dueñas MD Care Management (C3- chart review) 05/25/2024 9:40 AM EST Office Visit [facility] [address] [place] [address] [phone] Ignacio Rivera MD Diarrhea, unspecified type (Primary Dx); Nausea and vomiting, unspecified vomiting type 05/25/2024 Orders Only GENERIC EXTERNAL DATA DEPARTMENT Provider, Generic External Data 05/17/2024 11:00 AM EST Office Visit [facility] [address] [place] [address] [phone] Jessi Dueñas MD Weight loss of more than 10% body weight (Primary Dx); Post concussion syndrome; Gastroesophageal reflux disease without esophagitis; Bipolar affective disorder, currently depressed, moderate ([facility]); Fibromyalgia 05/17/2024 Orders Only GENERIC EXTERNAL DATA DEPARTMENT Provider, Generic External Data 05/17/2024 Travel 05/13/2024 Telephone [facility] [address] [place] [address] [phone] Jessi Dueñas MD [facility] (Disposable Underpad/Chux Large) 05/12/2024 Refill [facility] [address] [place] [address] [phone] Jessi Dueñas MD Allergic rhinitis, unspecified seasonality, unspecified trigger 05/02/2024 Telephone [facility] [address] [place] [address] [phone] Jessi Dueñas MD [facility] (Disposable underpad, large/1 unit = each, 248 per mo.) 04/29/2024 Refill [facility] [address] [place] [address] [phone] Jessi Dueñas MD Fibromyalgia 04/17/2024 Telephone [facility] [address] [place] [address] [phone] Jessi Dueñas MD 04/17/2024 Orders Only [facility] [address] [place] [address] [phone] Jessi Dueñas MD Acute bilateral low back pain without sciatica (Primary Dx); Polyarthralgia; Chronic pain of both knees; Bilateral hand pain 04/11/2024 Telephone [facility] [address] [place] [address] [phone] Jessi Dueñas MD Referral 04/09/2024 11:30 AM EST Office Visit [facility] [address] [place] [address] [phone] Jessi Dueñas MD Acute right ankle pain (Primary Dx); Weight loss of more than 10% body weight; Bipolar disorder, current episode mixed, moderate (CMS/HCC); Mild persistent asthma without complication; Incontinence of feces, unspecified fecal incontinence type; Post concussion syndrome 04/09/2024 Telephone [facility] [address] [place] [address] [phone] Jessi Dueñas MD 04/09/[address] [phone] Jessi Dueñas MD Durable Medical Equipment (L&C Form: Boost) 04/09/2024 Travel 04/04/[address] [address] Jessi Dueñas MD Medication Question 04/04/2024 Refill [facility] [address] [place] [address] [phone] Jessi Dueñas MD Fibromyalgia 04/02/2024 Patient Outreach [address] [phone] Jessi Dueñas MD Pre-visit Planning (SDOH screening completed on 05/09/2023) 04/01/[address] [phone] Jessi Dueñas MD Durable Medical Equipment (L&C Form: Pull ups) 03/29/[address] [address] Jessi Dueñas MD telephone call 03/20/2024 Refill [facility] [address] [place] [address] [phone] Jessi Dueñas MD Restless leg syndrome 03/11/[address] [phone] Muriel Severino [place] Lab Orders 03/03/2024 Refill [facility] [address] [place] [address] [phone] Jessi Dueñas MD 02/28/2024 3:30 PM EST Office Visit [address] [phone] Jessi Dueñas MD Hand swelling (Primary Dx); Fibromyalgia; Hematoma of left knee region; Chronic pain of both knees; Bipolar disorder, current episode mixed, moderate (CMS/HCC) 02/28/2024 Travel 02/26/2024 Refill [facility] [address] [place] [address] Jessi Dueñas MD Whole body pain from Last 3 Months Immunizations Name Administration [...] Mass Index 18.4 05/25/2024 9:40 AM EST Plan of Treatment Upcoming Encounters Date Type Department Care Team (Late st Contact Info) Description 07/26/2024 9:45 AM EDT Office Visit [facility] [address] [place] [address] Jessi Dueñas MD [address] [place] [address] Health Maintenance Due Date Last Done Comments Alcohol/Substance Use Screening 1994 Hepatitis B Vaccines (1 of 3 - 19+ 3-dose series) 2001 Pneumococcal Vaccine: Pediatrics (0 to 5 Years) and At-Risk Patients (6 to 49) Years) (1 of 2 - PCV) 2001 COVID-19 Vaccine ( season) 2023 09/19/2023, 07/06/2021, 08/10/2020, Additional history exists Influenza Vaccine (#1) 2023 , 07/06/2021, 01/24/2019, Additional history exists Pap Smear 02/23/2024 02/22/2021 HPV Vaccines (3 - 3-dose SCDM series) 03/20/2024 10/26/2023, 09/19/2023 Depression Screening 09/18/2024 09/19/2023, 09/19/19 Family Planning (PISQ) 05/20/2025 05/20/2024 Tobacco Screening 05/25/2025 05/25/2024 SDOH Screening 05/27/2025 05/27/2024 Mammogram 09/27/2025 09/28/2023 Cervical Cancer Screening 02/22/2026 HPV/Cotest 02/22/2026 02/22/2021, 01/02, 12/14/2015 DTaP/Tdap/Td Vaccines (3 - Td or Tdap) 08/14/2032 08/14/2022, 04/22/2011 Zoster Vaccines (1 of 2) 2032 RSV Patients and Patients Aged 60 years or older (1 - 1-dose 75+ series) 2057 HIV Screening Completed 05/17/2024, 09/01, 05/18/2023, Additional history exists Hepatitis C Screening Completed 05/17/2024 , 09/19/2023, 06/29/2023, Additional history exists HIB Vaccines Aged Out [...] Procedure Name Priority Date/Time Associated Diagnosis Comments HCG, TOTAL, QN Routine 05/25/2024 11:59 PM EST LIPASE Routine 05/25/2024 11:59 PM EST MAGNESIUM Routine 05/25/2024 11:59 PM EST BASIC METABOLIC PANEL Routine 05/25/2024 11:59 PM EST HEPATIC FUNCTION PANEL Routine 11:59 PM EST CBC WITH AUTO DIFFERENTIAL Routine 05/25/2024 11:59 PM EST SARS COV2/INFLUENZA A/B AND RSV RNA QL NAAT Routine 05/25/2024 11:59 PM EST POCT INFLUENZA B (ID NOW RAPID MOLECULAR) Routine 05/25/2024 9:52 AM EST Diarrhea, unspecified type Nausea and vomiting, unspecified vomiting type POCT RAPID COVID ANTIGEN Routine 05/25/2024 9:51 AM EST Diarrhea, unspecified type Nausea and vomiting, unspecified vomiting type POCT INFLUENZA A (ID NOW RAPID MOLECULAR) Routine 05/25/2024 9:51 AM EST Diarrhea, unspecified type Nausea and vomiting, unspecified vomiting type VITAMIN D 25-OH (D2 AND D3) Routine 05/17/2024 9:40 AM EST VITAMIN B12/FOLATE, SERUM PANEL Routine 05/17/2024 9:40 AM EST HIV 1/2 ANTIGEN/ANTIBODY, FOURTH GENERATION W/RFL Routine 05/17/2024 9:40 AM EST HEPATITIS PANEL, GENERAL Routine 05/17/2024 9:40 AM EST TSH W/REFLEX TO FT4 Routine 05/17/2024 9 :40 AM EST LIPASE Routine 05/17/2024 9:40 AM EST HEPATIC FUNCTION PANEL Routine 9:40 AM EST XR ANKLE 3+ VIEWS RIGHT Routine 04/09/2024 12:22 PM EST Acute right ankle pain XR HAND 3+ VIEWS LEFT Routine 03/04/2024 12:09 PM EST Hand swelling XR HAND 3+ VIEWS RIGHT Routine 12:09 PM EST Hand swelling BI MAMMOGRAM SCREENING TOMOSYNTHESIS BILATERAL Routine 09/28/2023 12:08 PM EDT Breast cancer screening by mammogram HPV MRNA E6/E7 REFLEX TO HPV 16, 18/45 Routine 02/22/2021 12:00 AM EST THINPREP IMAGING SYSTEM PAP Routine 02/22/2021 12:00 AM EST from Last 3 Months or Most Recently Relevant to Health Maintenance Results * SARS-CoV-2 RNA, Influenza A/B, and RSV RNA, Ql NAAT (05/25/2024 11:59 PM EST) Influenza A PCR NEGATIVE Negative [facility] Influenza B PCR NEGATIVE Negative [facility] Resp Syncy Virus RNA Qual PCR NEGATIVE Negative [facility] SARS COV2 PCR NEGATIVE Negative [facility] Comment:All test results mus t [...] use by authorized laboratories.Testing performed on the [employer] GeneXpert utilizingreal-time RT-PCR.All SARS CoV2 and positive influenza A/B results arereported to [facility]. 05/25/2024 11:5 9 PM EST 05/26/2024 12:02 AM EST us Generic External Data Provider LAB MICROBIOLOGY - GENERAL ORDERABLES Final Result [facility] [address] [place] [phone] * (ABNORMAL) CBC auto differential (05/25/2024 11:59 PM EST) White Blood Count 7.4 4.8 - 10.8 X10*3/uL [facility] Red Blood Count 3.94(L) 4.20 - 5.50 X10*6/uL [facility] Hemoglobin 12.4 12.0 - 16.0 g/dl [facility] Hematocrit 35.1(L) 37.0 - 47.0 % [facility] Mean Corpuscular Volume 89.1 80.0 - 98.0 fL [facility] Mean Corpuscular Hemoglobin 31.5 27.0 - 33.0 pg [facility] Mean Corpuscular HGB Conc 35.3(H) 31.0 - 35.0 g/dl [facility] Red Cell Distribution Width 12.4 11.0 - 16.0 % [facility] Platelet Count 284 160 - 400 X10*3/uL [facility] Mean Platelet Volume 9.2(L) 9.4 - 12.3 fL [facility] Neutrophils Percent Auto 43.6(L) 45 - 73 % [facility] Imm Gran Pct Auto 0.1 0.0 - 0.4 % [facility] Lymphocytes Percent Auto 49.7(H) 20 - 40 % [facility] Monocytes Percent Auto 6.3 2 - 11 % [facility] Eosinophils Percent Auto 0.3 0 - 4 % [facility] Basophils Percent Auto 0.0 0 - 2 % [facility] NRBC Pct Auto 0.0 0.0 - 0.2 /100WBC [facility] Neutrophils Absolute Auto 3.2 2.0 - 8.3 x10*3/uL [facility] Imm Gran Abs Auto 0.01 0.00 - 0.03 X10*3/uL [facility] Lymphocytes Absolute Auto 3.7 1.2 - 4.9 X10*3/uL [facility] Monocytes Absolute Auto 0.5 0.1 - 1.2 X10*3/uL [facility] Eosinophils Absolute Auto 0.0 0.0 - 0.4 X10*3/uL [facility] Basophils Absolute Auto 0.0 0.0 - 0.2 X10*3/uL [facility] NRBC Abs Auto 0.000 0.0 - 0.012 X10*3/uL [facility] 05/25/2024 11:5 9 PM EST 05/26/2024 12:02 AM EST us Generic External Data Provider LAB BLOOD ORDERAB LES Final Result [facility] [address] [place] [address] [phone] * hCG, Total, Quantitative (05/25/2024 11:59 PM EST) HCG Quantitative <2 mIU/mL [facility] Comment:Weeks post LMP Appro ximate hCG(Last Menstrual Period) Range (mIU/ml)3 - 4 weeks 9 - 1304 - 5 weeks 75 - 2,6005 - 6 weeks 850 - 20,8006 - 7 weeks 4000 - 100,2007 - 12 weeks 11,500 - 289,99723 - 16 weeks 18,300 - 137,03433 - 29 weeks (2nd trimester) 1,400 - 53,70075 - 41 weeks (3rd trimester) 940 - 60,000The Boyer B- hCG assay is used for the [...] ORDERAB LES Final Result Performing Organization Address [facility] Co de Phone Number [facility] [address] [place] [address] [phone] * Magnesium (05/25/2024 11:59 PM EST) Magnesium 2.0 1.6 - 2.6 mg/dL [facility] 05/25/2024 11:5 9 PM EST 05/26/2024 12:02 AM EST Generic External Data Provider LAB BLOOD ORDERAB LES Final Result Performing Organization Address [facility] Phone Number [facility] [address] [place] [address] [phone] * Lipase (05/25/2024 11:59 PM EST) Only the most recent of2 resultswithin the time period is included. Lipase 33 8 - 78 U/L [facility] 05/25/2024 11:5 9 PM EST 05/26/2024 12:02 AM EST Generic External Data Provider LAB BLOOD ORDERAB LES Final Result Performing Organization Address [facility] Phone Number [facility] [address] [place] [address] [phone] * Hepatic Function Panel (05/25/2024 11:59 PM EST) Only the most recent of2 resultswithin the time period is included. Bilirubin, Total 0.5 0.0 - 1.0 mg/dL [facility] Bilirubin, Direct 0.2 0.0 - 0.5 mg/dL [facility] Aspartate Amino Transferase 21 5 - 31 U/L [facility] Alanine Aminotransferase 21 0 - 31 U/L [facility] Total Protein 6.9 6.5 - 8.0 g/dL [facility] Albumin Level 4.0 3.5 - 5.0 g/dL [facility] Alkaline Phosphatase 52 39 - 117 U/L [facility] 05/25/2024 11:5 9 PM EST 05/26/2024 12:02 AM EST us Generic External Data Provider LAB BLOOD ORDERAB LES Final Result [facility] [address] [place] [phone] * (ABNORMAL) Basic Metabolic Panel (05/25/2024 11:59 PM EST) Pathologist [facility] Sodium 140 135 - 145 mmol/L [facility] Potassium 3.6 3.3 - 5.1 mmol/L [facility] Chloride 110(H) 96 - 108 mmol/L [facility] Carbon Dioxide 23 22 - 29 mmol/L [facility] Anion Gap 11(L) 12 - 20 [facility] Urea Nitrogen (BUN) 14 9 - 16 mg/dL [facility] Creatinine, Serum 0.83 0.5 - 1.4 mg/dL [facility] Creatinine Clr Calc Pharmacy 74.7 [facility] Comment:Provided height and weight: 170.18 cm,53.1 kg.eGFR (calculated from the MDRD study equation) and eCrCl(calculated from the Cockcroft-Gault equation) are based ondifferent parameters and may not yield comparable results.If eCrCl result is absurd, please check patient'sheight/weight. Estimated Glomerular Filt Rate >60 [facility] Comment:Chronic Kidney Disea se: Estimated GFR < 60 mL/min/1.47n0Msvwhn Kidney Disease: Estimated GFR < 15 mL/min/1.73m2 Glucose 100 60 - 115 mg/dL [facility] Calcium 8.8 8.4 - 10.2 mg/dL [facility] 05/25/2024 11:5 9 PM EST 05/26/2024 12:02 AM EST Generic External Data Provider LAB BLOOD ORDERAB LES Final Result Performing Organization Address [facility]/ZIP Co de Phone Number [facility] [address] [place] [phone] * POCT Rapid Influenza B BOYER ID NOW (05/25/2024 9:52 AM EST) Influenza B Negative Negative, Indeterminate [facility] QC Media Lot # [id number] [facility] Lot# Expiration Date [facility] Swab 05/25/2024 9:52 AM EST Ignacio Rivera MD POINT OF CARE TEST ENTER/EDIT OR DERABLES Final Result Performing Organization Address [facility] Co de Phone Number [facility] [address] [place] [address] [phone] * POCT Rapid Influenza A BOYER ID NOW (05/25/2024 9:51 AM EST) Influenza A Negative Negative, Indeterminate [facility] QC Media Lot # [id number] [facility] Lot# Expiration Date [facility] Swab 05/25/2024 9:51 AM EST Ignacio Rivera MD POINT OF CARE TEST ENTER/EDIT OR DERABLES Final Result Performing Organization Address [facility] Co de Phone Number [facility] [address] [place] [address] [phone] * POCT Rapid Covid-19 BinaxNOW (05/25/2024 9:51 AM EST) Rapid COVID Ag Negative QC Media Lot # [id number] Lot# Expiration Date [id number] Swab 05/25/2024 9:51 AM EST Ignacio Rivera MD POINT OF CARE TEST ENTER/EDIT OR DERABLES Final Result * VITAMIN D 25-OH (D2 AND D3) (05/17/2024 9:40 AM EST) Vitamin D, 25-OH, D2 <4 ng/mL [facility] Comment:This test was develo ped and its analytical performancecharacteristics have been determined by [employer] [place], [place]. It hasnot been cleared or approved by the U.S. Food and DrugAdministration. This assay has been validated pursuantto the CLIA regulations and is used for clinicalpurposes.THIS TEST WAS PERFORMED AT:[employer]/[id number] [place] [address]YIEXPWY W. MASON,MD,PHD Vitamin D, 25-OH, D3 31 ng/mL [facility] Comment:This test was develo ped and its analytical performancecharacteristics have been determined by [employer] [place], [place]. It hasnot been cleared or approved by the U.S. Food and DrugAdministration. This assay has been validated pursuantto the CLIA regulations and is used for clinicalpurposes. Vitamin D, 25-OH, Total 31 30 - 100 ng/mL [facility] Comment:Vitamin D, 25-Hydrox y reports [...] = 30 ng/mL.For additional information, please refer tohttp://education.[employer]/faq/XSF346(This link is being provided for informational/educational purposes only.) 05/17/2024 9:40 AM EST 05/17/2024 9:40 AM EST Generic External Data Provider LAB BLOOD ORDERAB LES Final Result Performing Organization Address [facility] Co de Phone Number [facility] [address] [place] [address] [phone] * Vitamin B12 (Cobalamin) and Folate Panel, Serum (05/17/2024 9:40 AM EST) Vitamin B12 474 200 - 900 pg/mL [facility] Comment:NORMAL 200-900 PG/ML INDETERMINATE 160-199 PG/ML DEFICIENT < 160 PG/ML Folate 15.2 > or = 4.0 ng/mL [facility] Comment:Reference Values:> o r = 4.0 ng/mL< 4.0 ng/mL suggests folate deficiency Methotrexate, aminopterin and folinic acid(leucovorin) are chemotherapeutic agents whose molecularstructures are similar to folate; therefore, the Architectfolate assay cannot be used for patients using these drugs. 05/17/2024 9:40 AM EST 05/17/2024 9:40 AM EST Generic External Data Provider LAB BLOOD ORDERAB LES Final Result Performing Organization Address [facility] de Phone Number [facility] [address] [place] [address] [phone] * TSH with Reflex to Free T4 (05/17/2024 9:40 AM EST) TSH reflex Free T4 1.12 0.32 - 4.0 uIU/mL [facility] 05/17/2024 9:40 AM EST 05/17/2024 9:40 AM EST us Generic External Data Provider LAB BLOOD ORDERAB LES Final Result Performing Organization Address [facility] Co de Phone Number [facility] [address] [place] [address] [phone] * Hepatitis Panel, General (05/17/2024 9:40 AM EST) Hepatitis A IgM Nonreactive Nonreactive [facility] Comment:IgM antibodies to AMAYA V not detected; does not exclude earlyacute or recovered HAV infection. ~Hepatitis B Surface Antibody REACTIVE Nonreactive [facility] Comment:REACTIVE: > 11.99 mI U/mL Hepatitis B Core Antibody Nonreactive Nonreactive [facility] Hepatitis C Antibody Nonreactive Nonreactive [facility] Comment:Antibodies to HCV no t detected; does not exclude early acuteHCV infection. Hepatitis B Surface Ag Negative Negative [facility] 05/17/2024 9:40 AM EST 05/17/2024 9:40 AM EST Generic External Data Provider LAB BLOOD ORDERAB LES Final Result Performing Organization Address [facility] de Phone Number [facility] [address] [place] [phone] * HIV-1/2 Antigen and Antibodies, Fourth Generation, with Reflexes (05/17/2024 9:40 AM EST) HIV AB/AG Nonreactive Nonreactive [facility] Comment:HIV-1 p24 Ag and/or HIV-1/HIV-2 Ab not detected.A test result that is nonreactive does not exclude thepossibility of exposure to or infection with HIV-1 and/orHIV-2. Nonreactive results in this assay for individualswith prior exposure to HIV-1 and/or HIV-2 may be due toantigen and antibody levels that are below the limit ofdetection of this assay.[facility] HIV Ag/Ab Combo assay result andsupplemental assay results should be interpreted inconjunction with the patient's clinical presentation,history and other laboratory results. If the results areinconsistent with clinical evidence, additional testing issuggested to confirm the result. 05/17/2024 9:40 AM EST 05/17/2024 9:40 AM EST us Generic External Data Provider LAB BLOOD ORDERAB LES Final Result [facility] [address] [place] [address] [phone] * XR Ankle 3+ Views Right (04/09/2024 12:22 PM EST) Anatomical Region Laterality Modality Lower Extremities, Ankle Right Radiogr aphic Imaging 04/09/2024 12:2 2 PM EST Narrative 04/09/2024 12:45 PM EST ?[facility] ?[address] ?[place] [address] ?XRay Report ? Signed ? Patient: Анна Armstrongfer ?MR#: MM ?? [id number] ? : 1980 ?Acct:[id number] ? Age/Sex: 43 / F ?ADM Date: 04/09/24 ? Loc: HO.HHCX ? Attending Dr: Jessi Dueñas MD ? Ordering Physician: Jessi Dueñas ?? Date of Service: 04/09/24 ?? Procedure(s): XR ankle RT min 3V ?? Accession Number(s): [id number] ? cc: Jessi Dueñas ? EXAMINATION: ?? [...] 12:42 PM EST RP ? Dictated By: ?Fide,Merritt S ? Signed By: ?<Electronically signed by Merritt Elizalde MD in OV> ?04/09/24 1242 ? DD/ 1222 ? TD/TT: 04/09/24 1231 ? Registered Phlebotomist Part Time: MSM ? Procedure Note Donotrejiter, Image - 04/09/2024 [facility] [address] [place] [address] XRay Report Signed Patient: Kera ArmstrongMR#: [id number] : 1980Acct:[id number] Age/Sex: 43 / FADM Date: 04/09/24 Loc: HO.HHCX Attending Dr: Jessi Dueñas MD Ordering Physician: Jessi Dueñas Date of Service: 04/09/24 Procedure(s): XR ankle RT min 3V Accession Number(s): [id number] cc: Jessi Dueñas EXAMINATION: XR ANKLE, RIGHT [...] 04/09/24 1242 DD/ 1222 TD/TT: 04/09/24 1231 Registered Phlebotomist Part Time: MSM us Jessi Dueñas MD IMG XR PROCEDURES Edited Resul t - Final * XR Hand 3+ Views Right (03/04/2024 12:09 PM EST) Anatomical Region Laterality Modality Upper Extremities, Hand Right Radiogra phic Imaging 03/04/2024 12:0 9 PM EST Narrative 03/04/2024 4:08 PM EST ?[place] [facility] ?[address] ?[place] [address] ?XRay Report ? Signed ? Patient: Lc Nicole,Kera ?MR#: MM ?? [id number] ? : 1980 ?Acct:[id number] ? Age/Sex: 43 / F ?ADM Date: 03/04/24 ? Loc: HO.HHCX ? Attending Dr: Jessi Dueñas MD ? Ordering Physician: Jessi Dueñas ?? Date of Service: 03/04/24 ?? Procedure(s): XR hand RT min 3V ?? Accession Number(s): [id number] ? cc: Jessi Dueñas ? EXAMINATION: ?? [...] DD/ 1209 ? TD/TT: 03/04/24 1220 ? Registered Phlebotomist Part Time: PN ? Procedure Note Cy, Eloy - 03/04/[address] [address] XRay Report Signed Patient: Kera ArmstrongMR#: [id number] : 1980Acct:[id number] Age/Sex: 43 / FADM Date: 03/04/24 Loc: HO.HHCX Attending Dr: Jessi Dueñas MD Ordering Physician: Jessi Dueñas Date of Service: 03/04/24 Procedure(s): XR hand RT min 3V Accession Number(s): [id number] cc: Jessi Dueñas EXAMINATION: XR HAND, RIGHT [...] Pratibha Stevens MD 03/04/2024 04:05 PM EST RP Dictated By: Pratibha Stevens MD Signed By: <Electronically signed by Pratibha Stevesn MD in OV> 03/04/24 1605 DD/ 1209 TD/TT: 03/04/24 1220 Registered Phlebotomist Part Time: DASH us Jessi Dueñas MD IMG XR PROCEDURES Final Result * XR Hand 3+ Views Left (03/04/2024 12:09 PM EST) Anatomical Region Laterality Modality Upper Extremities, Hand Left Radiogra phic Imaging 03/04/2024 12:0 9 PM EST Narrative 03/04/2024 4:08 PM EST ?[facility] ?[address] ?[place] [address] ?XRay Report ? Signed ? Patient: Kera Armstrong ?MR#: MM ?? [id number] ? : 1980 ?Acct:[id number] ? Age/Sex: 43 / F ?ADM Date: 03/04/24 ? Loc: HO.HHCX ? Attending Dr: Jessi Dueñas MD ? Ordering Physician: Jessi Dueñas ?? Date of Service: 03/04/24 ?? Procedure(s): XR hand LT min 3V ?? Accession Number(s): [id number] ? cc: Jessi Dueñas ? EXAMINATION: ?? [...] ??Pratibha Stevens MD ??03/04/2024 04:04 PM EST ?? RP ? Dictated By: ?Pratibha Stevens MD ? Signed By: ?<Electronically signed by Pratibha Stevens MD in OV> ? 03/04/24 1604 ? DD/ 1209 ? TD/TT: 03/04/24 1220 ? Registered Phlebotomist Part Time: PN ? Procedure Note Donotuseinterpreter, Image - 03/04/[address] [address] XRay Report Signed Patient: Kera ArmstrongMR#: MM [id number] : 1980Acct:[id number] Age/Sex: 43 / FADM Date: 03/04/24 [facility]: Jessi Dueñas MD Ordering Physician: Jessi Dueñas Date of Service: 03/04/24 Procedure(s): XR hand LT min 3V Accession Number(s): [id number] cc: Jessi Dueñas EXAMINATION: XR HAND, LEFT [...] Pratibha Stevens MD 03/04/2024 04:04 PM EST Dictated By: Pratibha Stevens MD Signed By: <Electronically signed by Pratibha Stevens MD in OV> 03/04/24 1604 DD/ 1209 TD/TT: 03/04/24 1220 Registered Phlebotomist Part Time: PN Jessi Dueñas MD IMG XR PROCEDURES Final Result * BI Mammogram Screening Tomosynthesis Bilateral (09/28/2023 12:08 PM EDT) Anatomical Region Laterality Modality Breast Bilateral Mammography 09/28/2023 12:0 8 PM EDT Narrative 10/27/2023 9:20 AM EDT ? [facility] ? [address] ?[place] [address] ? Mammography Report ? Signed ? Patient: Kera Armstrong ?MR#: MM ?? [id number] ? : 1980 ?Acct:[id number] ? Age/Sex: 42 / F ?ADM Date: 09/28/23 ? Loc: HO.MAMMO ? Attending Dr: Jessi Dueñas MD ? Ordering Physician: Anita Arriaga MD ?Re ?? sults: 1Negative ? Date of Service: 09/28/23 ?Follow Up: 1 Year From Orig ?? inal Mammogram ? Procedure(s): MM tomosynthesis screening BI ?? Accession Number(s): [id number] ? cc: Jessi Dueñas; Anita Arriaga MD [...] their next mammogram. ? Dictated By: ?Sheridan iLu MD ? Signed By: ?<Electronically signed by Sheridan Liu MD in OV> ? 10/27/23 0916 ? DD/ 1208 ? TD/TT: ? Registered Phlebotomist Part Time: ? Procedure Note Doncelsoter, Image - 10/27/[address] [place] [facility] [address] [place] [address] Mammography Report Signed Patient: Teresa Armstrong#: MM [id number] : 1980Acct:[id number] Age/Sex: 42 / FADM Date: 09/28/23 Loc: .MAMMO Attending Dr: Jessi Dueñas MD Ordering Physician: Anita Arriaga sults: 1Negative Date of Service: 09/28/23Follow Up: 1 Year From Orig inal Mammogram Procedure(s): MM tomosynthesis screening BI Accession Number(s): [id number] cc: Jessi Dueñas; Anita Arriaga MD EXAMINATION: [...] in OV> 10/27/23 0916 DD/ 1208 TD/TT: Registered Phlebotomist Part Time: Anita Roca MD IMG BI PROCEDURES Final Result * THINPREP TIS PAP (02/22/2021 12:00 AM EST) Clinical Information: None given [facility] COMMENT SEE COMMENT FOUNDATI ON [...] was manually screened according to routine procedures. Car Painter : SEE COMMENT [facility] Comment: KN, CT(ASCP) CT screening location: [address] ??[address] Interpretation/R esult: Negative for intraepithelial lesion or malignancy. [facility] LMP: NONE GIVEN [facility] Prev. BX: NONE GIVEN [facility] Prev. PAP: NONE GIVEN [facility]OUND[facility] ON [facility] SOURCE: None given [facility] Statement Of Adequacy: SEE COMMENT [facility] Comment: Satisfactory for evaluation. Endocervical/transformation zone component absent. Partially obscuring blood 02/22/2021 Jessi Dueñas MD LAB PATHOLOGY ORDERABLES Final Result Performing Organization Address [facility] Co de Phone Number [facility] [address] * HPV mRNA E6/E7 REFLEX TO HPV 16, 18/45 (02/22/2021 12:00 AM EST) HPV nRNA E6/E7 Not Detected Not Detected [facility] Comment: Methodology: Fire Support Specialist-Mediated Amplification This assay detects E6/E7 viral messenger RNA (mRNA) from 14 high-risk HPV types (16,18,31,33,35,39,45,51,52,56,58,59,66,68). ? The analytical performance characteristics of this assay have been determined by [employer]. The modifications have not been cleared or approved by the FDA. This assay has been validated pursuant to the CLIA regulations and is used for clinical purposes. ?? For additional information, please refer to http://education.[employer]/faq/FLH185g4 (This link if provided for information/ educational purposes only.) 02/22/2021 Jessi Dueñas MD LAB CYTOLOGY ORDERABLES Final Result Performing Organization Address [facility] de Phone Number [facility] [address] from Last 3 Months or Most Recently Relevant to Health Maintenance Insurance [facility] C3 HSN PARTIAL Care Teams Vocational Rehabilitation Consultant Relationship Specialty Start Date End Date Jessi Dueñas MD [address] [place] [address] PCP - General Family Medicine 11/24/20 Mikayla Bhagat Brake TesterFood Critic 05/09/23
--- OUTSIDE RECORDS SUMMARY | 2024-05-27 13:27 | XMS_ITS | Encounter Summary ---
Author Organization [employer] [facility] Address [address] [facility] 7 [place] [address] Care Team Providers Care Knuckler Name Role Phone Jessi Dueñas MD Primary Care Provider [phone] Reason for Visit * Reason Onset Date Comments Referral 12/23/2022 Encounter Details Date Type Department Care Team ([facility] st Contact Info) Description 12/23/2022 Telephone [facility] [address] [place] [phone] Jessi Dueñas MD [address] [place] [address] Referral Social History Tobacco Use Types Packs/Day [...] have interpreters. Any questions, contact pt at [phone] (Yi) documented in this encounter Plan of Treatment Upcoming Encounters Date Type Department Care Team (Late st Contact Info) Description 07/26/2024 9:45 AM EDT Office Visit [facility] [address] [place] [address] Jessi Dueñas MD [address] [place], [place] [phone] documented as of this encounter Visit Diagnoses Not on filedocumented in this encounter Additional Health Concerns Assessment Noted Time PHQ-9 Depression Total Score: 19 023 2:59 PM EST documented as of this encounter Care Teams Knuckler Relationship Specialty Start Date End Date Jessi Dueñas MD [address] [place], [place] [phone] PCP - General Family Medicine 11/24/20 Mikayla Bhagat Production Control Pegboard ClerkFountain Pen Nibs Inspector 05/09/23 documented as of this encounter
--- OUTSIDE RECORDS SUMMARY | 2024-05-27 13:27 | XMS_ITS | Encounter Summary ---
Author Organization [employer] [facility] Address [address] [facility] 7t [place] [address] Care Team Providers Care Rodent Control Worker Name Role Phone Jessi Dueñas MD Primary Care Provider [phone] Reason for Visit * Reason Onset Date Comments Call Back Request 01/23/2024 Encounter Details Date Type Department Care Team ([facility] Contact Info) Description 01/23/2024 Telephone [facility] [address] [place], [place] [phone] Jessi Dueñas MD [address] [place], [place] [phone] Call Back Request Social History Tobacco Use [...] no scripts sent. Please contact pt at [phone]. (Ivorian Speaker) documented in this encounter Plan of Treatment Upcoming Encounters Date Type Department Care Team (Late st Contact Info) Description 07/26/2024 9:45 AM EDT Office Visit [facility] [address] [place] [address] Jessi Dueñas MD [address] [place] [address] documented as of this encounter Visit Diagnoses Not on filedocumented in this encounter Additional Health Concerns Assessment Noted Time PHQ-9 Depression Total Score: 8 09/19/19 24 11:07 AM EDT documented as of this encounter Care Teams Rodent Control Worker Relationship Specialty Start Date End Date Jessi Dueñas MD [address] [place] [address] PCP - General Family Medicine 11/24/20 Mikayla Bhagat Vp Of Global MarketingIncident Response Engineer 05/09/23 documented as of this encounter
--- OUTSIDE RECORDS SUMMARY | 2024-05-27 13:27 | XMS_ITS | Encounter Summary ---
Author Organization [employer] [facility] Address [address] [facility] 7t [place] [address] Care Team Providers Care Olive Packer Name Role Phone Jessi Dueñas MD Primary Care Provider [phone] Encounter Details Date Type Department Care Team (Late st Contact Info) Description 10/12/2022 Orders Only [facility] [address] [place] [phone] Jessi Dueñas MD [address] [place] [address] [phone] Acute bilateral low back pain, unspecified whether [...] Description 07/26/2024 9:45 AM EDT Office Visit [facility] [address] [place] [address] [phone] Jessi Dueñas MD [address] [place] [address] documented as of this encounter Visit Diagnoses Diagnosis Acute bilateral low back pain, unspecified whether sciatica present- Primary Hematoma of left knee region Sprain of left medial ankle joint, subsequent encounter documented in this encounter Additional Health Concerns Assessment Noted Time PHQ-9 Depression Total Score: 19 023 2:59 PM EST documented as of this encounter Care Teams Olive Packer Relationship Specialty Start Date End Date Jessi Dueñas MD [address] [place] [address] PCP - General Family Medicine 11/24/20 Mikayla Bhagat Rail SwitchmanChange Over 05/09/23 documented as of this encounter
== END 2024-05-27 12:11 | disposition home or self-care (01) ==
PROVIDERS: Visit Provider Orthopaedic Surgery
DX: M17.12 Unilateral primary osteoarthritis, left knee (principal)
CPT/HCPCS: 20610; 99213

== ENCOUNTER → 2024-05-27 11:38 | Outpatient (BNVA) | payer MEDICAID, SELFPAY | PROVIDERS: Visit Provider Orthopaedic Surgery | DX: M17.12 Unilateral primary osteoarthritis, left knee (principal) | CPT/HCPCS: 20610; 99212; J1010; J2003 ==

== ENCOUNTER 2024-05-30 07:23 | Outpatient (REF) | payer MEDICAID, SELFPAY ==
--- NOTE | ~2024-05-30 | MR_ITS ---
EXAMINATION: MRCP HISTORY: R63.4 - Abnormal weight loss COMPARISON: Correlation is made with an unenhanced CT of the abdomen dated 03/15/2022. TECHNIQUE: Axial in and out of phase T1-weighted gradient echo and axial and coronal haste T2 with fat saturation images were obtained through the abdomen. 3D MRCP Reconstructed images and thick slab imaging of the biliary tree were obtained. FINDINGS: There is no significant signal loss within the liver on opposed phase imaging to suggest steatosis. There is no intrahepatic biliary ductal dilatation. The common bile duct is normal in caliber. No intraluminal filling defects are identified within the common bile duct to suggest choledocholithiasis. No liver mass is identified, although evaluation is limited by lack of intravenous contrast material. The gallbladder, spleen, and pancreas are unremarkable. The pancreatic duct is normal in caliber. The adrenals and kidneys are unremarkable. No retroperitoneal lymphadenopathy or ascites is identified in the upper abdomen. The visualized bones demonstrate normal signal intensity. MR/MR MRCP IMPRESSION: Unremarkable MRCP. Electronically signed by: Everett Rich MD 05/30/2024 08:21 AM [facility]
--- OUTSIDE RECORDS SUMMARY | 2024-05-30 07:26 | XMS_ITS | Encounter Summary ---
Author Organization [employer] Address [address] [facility] 7t [place] [address] Care Team Providers Care Filling Station Attendant Name Role Phone Jessi Dueñas MD Primary Care Provider [phone] Reason for Visit * Reason Onset Date Comments [facility] 05/02/2024 Disposable unde rpad, large1 unit = each, 248 per mo. Encounter Details Date Type Department Care Team ([facility] st Contact Info) Description 05/02/2024 Telephone [facility] [address] [place] [address] Jessi Dueñas MD [address] [place] [address] [facility] (Disposable underpad, large/1 unit = each, 248 [...] the past 12 months, has t he [employer] gas, oil or water company threatened to [...] AM EST Received medical necessity form from [employer] for Disposable underpad (large). Form has been placed on PCP's desk for signature. documented in this encounter Plan of Treatment Upcoming Encounters Date Type Department Care Team (Late st Contact Info) Description 07/26/2024 9:45 AM EDT Office Visit [facility] [address] [place] [address] Jessi Dueñas MD [address] [place] [address] documented as of this encounter Visit Diagnoses Not on filedocumented in this encounter Additional Health Concerns Assessment Noted Time PHQ-9 Depression Total Score: 8 09/19/19 24 11:07 AM EDT documented as of this encounter Care Teams Filling Station Attendant Relationship Specialty Start Date End Date Jessi Dueñas MD [address] [place] [address] PCP - General Family Medicine 11/24/20 Mikayla Bhagat Assistant Offset Press OperatorAsphalt Tile Floor Layer 05/09/23 documented as of this encounter
--- OUTSIDE RECORDS SUMMARY | 2024-05-30 07:26 | XMS_ITS | Encounter Summary ---
Author Organization [facility] Address [address] [facility] 7t [place] [address] Care Team Providers Care Cloth Folder Hand Name Role Phone Jessi Dueñas MD Primary Care Provider [phone] Reason for Referral * Consultation (Routine) - Closed Specialty Diagnoses / Procedures Referred By Contac t Referred To Contact Physical Therapy Diagnoses Acute bilateral low back pain without sciatica Chronic pain of both knees Bilateral hand pain Jessi Dueñas MD [address] [place] [address] Phone: tel: fax: [facility] [address] [facility] [address] [place], [place] Phone: tel: fax: Referral ID Status Reason Start Date Expiration Date V isits Requested Visits Authorized [id number] Closed Specialty Services Required 04/17/2024 04/17/2025 20 20 Encounter Details Date Type Department Care Team (Late st Contact Info) Description 04/17/2024 Orders Only [facility] [address] [place] [address] [phone] Jessi Dueñas MD [address] [place], [place] [phone] Acute bilateral low back pain without sciatica [...] Visit [facility] [address] [place] [address] Jessi Dueñas MD [address] [place] [address] Scheduled Referrals Name Type Priority Associated Diagnoses [...] documented as of this encounter Care Teams Cloth Folder Hand Relationship Specialty Start Date End Date Jessi Dueñas MD [address] [place] [address] PCP - General Family Medicine 11/24/20 Mikayla Bhagat Case ConsultantClinical Documentation Manager 05/09/23 documented as of this encounter
--- OUTSIDE RECORDS SUMMARY | 2024-05-30 07:26 | XMS_ITS | Encounter Summary ---
Author Organization [employer] Address [address] [facility] 7 [place] [address] Care Team Providers Care Drier Operator Helper Name Role Phone Jessi Dueñas MD Primary Care Provider [phone] Reason for Visit * Reason Comments Transition Of Care (Tcm) ERRORr Encounter Details Date Type Department Care Team ([facility] st Contact Info) Description 05/28/2024 Patient Outreach [facility] [address] [place] [address] Jessi Dueñas MD [address] [place] [address] Transition Of Care (Tcm) (ERRORr) Social History Tobacco Use Types Packs/Day Years [...] Description 07/26/2024 9:45 AM EDT Office Visit [facility] [address] [place] [address] Jessi Dueñas MD [address] [place] [address] documented as of this encounter Visit Diagnoses Not on filedocumented in this encounter Additional Health Concerns Assessment Noted Time PHQ-9 Depression Total Score: 8 09/19/19 24 11:07 AM EDT documented as of this encounter Care Teams Drier Operator Helper Relationship Specialty Start Date End Date Jessi Dueñas MD [address] [place] [address] PCP - General Family Medicine 11/24/20 Mikayla Bhagat Film ExaminerSales Development Consultant 05/09/23 documented as of this encounter
--- OUTSIDE RECORDS SUMMARY | 2024-05-30 07:26 | XMS_ITS | Encounter Summary ---
Author Organization [employer] Address [address] [facility] 7 [place] [address] Care Team Providers Care Cat Skinner Name Role Phone Jessi Dueñas MD Primary Care Provider [phone] Reason for Visit * Reason Comments Care Coordination C3 -SERGE edwards telephone call outreach Encounter Details Date Type Department Care Team (Latest Contact Info) Description 05/27/2024 Patient Outreach [facility] [address] [place] [address] Jessi Dueñas MD [address] [place] [address] Care Coordination (C3 TOM Doshi telephone call [...] outbound call to patient introducing herself from [facility] CM Department, in regards to offering CM-CHW [...] Wednesdays, and Walk-In Urgent Care Located in [facility] of [facility]. Patient providedwith after-hours line for [facility], , which offer night time triage service and option to transfer to cushion filler provider if needed. Patient verbalizes understanding, and able to repeat back to poem writer. documented in this encounter Plan of Treatment Upcoming Encounters Date Type Department Care Team (Late st Contact Info) Description 07/26/2024 9:45 AM EDT Office Visit [facility] [address] [place] [address] Jessi Dueñas MD [address] [place] [address] documented as of this encounter Visit Diagnoses Not on filedocumented in this encounter Additional Health Concerns Assessment Noted Time PHQ-9 Depression Total Score: 8 09/19/19 24 11:07 AM EDT documented as of this encounter Care Teams Cat Skinner Relationship Specialty Start Date End Date Jessi Dueñas MD [address] [place] [address] PCP - General Family Medicine 11/24/20 Mikayla Bhagat Jewelry InspectorAdjunct Trainer 05/09/23 documented as of this encounter
--- OUTSIDE RECORDS SUMMARY | 2024-05-30 07:26 | XMS_ITS | Encounter Summary ---
Author Organization [email or web address] Address [address] [facility] 7t [place] [address] Care Team Providers Care Margin Analyst Name Role Phone Jessi Dueñas MD Primary Care Provider [phone] Encounter Details Date Type Department Care Team [...] t he electric, gas, oil or water [employer] threatened to shut off services in your [...] Upcoming Encounters Date Type Department Care Team ([facility] st Contact Info) Description 07/26/2024 9:45 AM EDT Office Visit [facility] MEDICINE [address] [place] [address] [phone] Jessi Dueñas MD [address] [place], [place] [phone] documented as of this encounter Procedures Procedure [...] PM EST) Influenza A PCR NEGATIVE Negative [facility] Influenza B PCR NEGATIVE Negative [facility] Resp Syncy Virus RNA Qual PCR NEGATIVE Negative [facility] SARS COV2 PCR NEGATIVE Negative [facility] Comment:All test results mus t be [...] use by authorized laboratories.Testing performed on the Hello! Messenger GeneXpert utilizingreal-time RT-PCR.All SARS CoV2 and positive influenza A/B results arereported to [facility]. 05/25/2024 11:5 9 PM EST 05/26/2024 12:02 AM EST Generic External Data Provider LAB MICROBIOLOGY - GENERAL ORDERABLES Final Result [facility] [address] [place] [phone] * hCG, Total, Quantitative (05/25/2024 11:59 PM EST) HCG Quantitative <2 mIU/mL [facility] Comment:Weeks post LMP Appro ximate hCG(Last Menstrual Period) Range (mIU/ml)3 - 4 weeks 9 - 1304 - 5 weeks 75 - 2,6005 - 6 weeks 850 - 20,8006 - 7 weeks 4000 - 100,2007 - 12 weeks 11,500 - 289,37701 - 16 weeks 18,300 - 137,04331 - 29 weeks (2nd trimester) 1,400 - 53,30917 - 41 weeks (3rd trimester) 940 - [...] ORDERAB LES Final Result Performing Organization Address [facility] Co de Phone Number [facility] [address] [place] [phone] * Lipase (05/25/2024 11:59 PM EST) Pathologist [facility] Lipase 33 8 - 78 U/L [facility] 05/25/2024 11:5 9 PM EST 05/26/2024 12:02 AM EST us Generic External Data Provider LAB BLOOD ORDERAB LES Final Result Performing Organization Address [facility] Co de Phone Number [facility] [address] [place] [phone] * Magnesium (05/25/2024 11:59 PM EST) Pathologist [facility] Magnesium 2.0 1.6 - 2.6 mg/dL [facility] 05/25/2024 11:5 9 PM EST 05/26/2024 12:02 AM EST Generic External Data Provider LAB BLOOD ORDERAB LES Final Result Performing Organization Address [facility] de Phone Number [facility] [address] [place] [phone] * (ABNORMAL) Basic Metabolic Panel (05/25/2024 11:59 PM EST) Pathologist [facility] Sodium 140 135 - 145 mmol/L [facility] Potassium 3.6 3.3 - 5.1 mmol/L [facility] Chloride 110(H) 96 - 108 mmol/L [facility] Carbon Dioxide 23 22 - 29 mmol/L [facility] Anion Gap 11(L) 12 - 20 [facility] Urea Nitrogen (BUN) 14 9 - 16 mg/dL [facility] Creatinine, Serum 0.83 0.5 - 1.4 mg/dL [facility] Creatinine Clr Calc Pharmacy 74.7 [facility] Comment:Provided height and weight: 170.18 cm,53.1 kg.eGFR (calculated from the MDRD study equation) and eCrCl(calculated from the Cockcroft-Gault equation) are based ondifferent parameters and may not yield comparable results.If eCrCl result is absurd, please check patient'sheight/weight. Estimated Glomerular Filt Rate >60 [facility] Comment:Chronic Kidney Disea se: Estimated GFR < 60 mL/min/1.70m4Pounot Kidney Disease: Estimated GFR < 15 mL/min/1.73m2 Glucose 100 60 - 115 mg/dL [facility] Calcium 8.8 8.4 - 10.2 mg/dL [facility] 05/25/2024 11:5 9 PM EST 05/26/2024 12:02 AM EST us Generic External Data Provider LAB BLOOD ORDERAB LES Final Result Performing Organization Address City/State/[facility] Co de Phone Number [facility] [address] [place] [phone] * Hepatic Function Panel (05/25/2024 11:59 PM EST) Bilirubin, Total 0.5 0.0 - 1.0 mg/dL [facility] Bilirubin, Direct 0.2 0.0 - 0.5 mg/dL [facility] Aspartate Amino Transferase 21 5 - 31 U/L [facility] Alanine Aminotransferase 21 0 - 31 U/L [facility] Total Protein 6.9 6.5 - 8.0 g/dL [facility] Albumin Level 4.0 3.5 - 5.0 g/dL [facility] Alkaline Phosphatase 52 39 - 117 U/L [facility] 05/25/2024 11:5 9 PM EST 05/26/2024 12:02 AM EST us Generic External Data Provider LAB BLOOD ORDERAB LES Final Result [facility] [address] [place] [phone] * (ABNORMAL) CBC auto differential (05/25/2024 11:59 PM EST) White Blood Count 7.4 4.8 - 10.8 X10*3/uL [facility] Red Blood Count 3.94(L) 4.20 - 5.50 X10*6/uL [facility] Hemoglobin 12.4 12.0 - 16.0 g/dl [facility] Hematocrit 35.1(L) 37.0 - 47.0 % [facility] Mean Corpuscular Volume 89.1 80.0 - 98.0 fL [facility] Mean Corpuscular Hemoglobin 31.5 27.0 - 33.0 pg [facility] Mean Corpuscular HGB Conc 35.3(H) 31.0 - 35.0 g/dl [facility] Red Cell Distribution Width 12.4 11.0 - 16.0 % [facility] Platelet Count 284 160 - 400 X10*3/uL [facility] Mean Platelet Volume 9.2(L) 9.4 - 12.3 fL [facility] Neutrophils Percent Auto 43.6(L) 45 - 73 % [facility] Imm Gran Pct Auto 0.1 0.0 - 0.4 % [facility] Lymphocytes Percent Auto 49.7(H) 20 - 40 % [facility] Monocytes Percent Auto 6.3 2 - 11 % [facility] Eosinophils Percent Auto 0.3 0 - 4 % [facility] Basophils Percent Auto 0.0 0 - 2 % [facility] NRBC Pct Auto 0.0 0.0 - 0.2 /100WBC [facility] Neutrophils Absolute Auto 3.2 2.0 - 8.3 x10*3/uL [facility] Imm Gran Abs Auto 0.01 0.00 - 0.03 X10*3/uL [facility] Lymphocytes Absolute Auto 3.7 1.2 - 4.9 X10*3/uL [facility] Monocytes Absolute Auto 0.5 0.1 - 1.2 X10*3/uL [facility] Eosinophils Absolute Auto 0.0 0.0 - 0.4 X10*3/uL [facility] Basophils Absolute Auto 0.0 0.0 - 0.2 X10*3/uL [facility] NRBC Abs Auto 0.000 0.0 - 0.012 X10*3/uL [facility] 05/25/2024 11:5 9 PM EST 05/26/2024 12:02 AM EST us Generic External Data Provider LAB BLOOD ORDERAB LES Final Result Performing Organization Address City/State/[facility] Co de Phone Number [facility] [address] [place] [phone] documented in this encounter Visit Diagnoses Not on filedocumented in this encounter Additional Health Concerns Assessment Noted Time PHQ-9 Depression Total Score: 8 09/19/19 24 11:07 AM EDT documented as of this encounter Care Teams Margin Analyst Relationship Specialty Start Date End Date Jessi Dueñas MD [address] [place] [address] PCP - General Family Medicine 11/24/20 Mikayla Bhagat Watch Crystal CutterTest Skein Winder 05/09/23 documented as of this encounter
--- OUTSIDE RECORDS SUMMARY | 2024-05-30 07:26 | XMS_ITS | Encounter Summary ---
Author Organization [employer] [facility] Address [address] [facility] 7 [place] [address] Care Team Providers Care Green Building Materials Distributor Name Role Phone Jessi Dueñas MD Primary Care Provider [phone] Reason for Visit * Reason Onset Date Comments [facility]13[facility] Disposable Unde rpad/Chux Large Encounter Details Date Type Department Care Team ([facility] st Contact Info) Description 05/13/2024 Telephone [facility] MEDICINE [address] [place] [address] Jessi Dueñas MD [address] [place] [address] [facility] (Disposable Underpad/Chux Large) Social History [...] signed by the PCP and faxed to [employer]. It is now sent in for scanning. * Telephone Encounter - Julian Slater [place] - 05/13/2024 9:59 AM EST Received medical necessity form from [employer] for Disposable Underpad/Chux Large. Form has been filledout and placed on PCP's desk for signature. documented in this encounter Plan of Treatment Upcoming Encounters Date Type Department Care Team (Late st Contact Info) Description 07/26/2024 9:45 AM EDT Office Visit [facility] MEDICINE [address] [place] [address] Jessi Dueñas MD [address] [place] [address] documented as of this encounter Visit Diagnoses Not on filedocumented in this encounter Additional Health Concerns Assessment Noted Time PHQ-9 Depression Total Score: 8 09/19/19 24 11:07 AM EDT documented as of this encounter Care Teams Green Building Materials Distributor Relationship Specialty Start Date End Date Jessi Dueñas MD [address] [place] [address] PCP - General Family Medicine 11/24/20 Mikayla Bhagat Vice President Of NewsImprovement Coordinator 05/09/23 documented as of this encounter
--- OUTSIDE RECORDS SUMMARY | 2024-05-30 07:26 | XMS_ITS | Encounter Summary ---
Author Organization [employer] Address [address] [facility] 7t [place] [address] Care Team Providers Care Procedure Writer Name Role Phone Jessi Dueñas MD Primary Care Provider [phone] Encounter Details Date Type Department Care Team [...] 9:45 AM EDT Office Visit [facility] MEDICINE [address] [place], [place] [phone] Jessi Dueñas MD [address] [place] [address] documented as of this encounter Visit Diagnoses Not on filedocumented in this encounter Additional Health Concerns Assessment Noted Time PHQ-9 Depression Total Score: 8 09/19/19 24 11:07 AM EDT documented as of this encounter Care Teams Procedure Writer Relationship Specialty Start Date End Date Jessi Dueñas MD [address] [place] [address] [phone] PCP - General Family Medicine 11/24/20 Mikayla Bhagat Wholesale Account ManagerAirplane Pilot Commercial 05/09/23 documented as of this encounter
--- OUTSIDE RECORDS SUMMARY | 2024-05-30 07:26 | XMS_ITS | Encounter Summary ---
Author Organization [employer] Address [address] [facility] 7 [place] [address] Care Team Providers Care Plate Embosser Name Role Phone Jessi Dueñas MD Primary Care Provider [phone] Reason for Visit * Reason Onset Date Comments Med Refill 05/29/2024 Encounter Details Date Type Department Care Team ([facility] st Contact Info) Description 05/29/2024 Telephone [facility] MEDICINE [address] [place], [place] [phone] Jessi Dueñas MD [address] [place], [place] [phone] Med Refill Social History Tobacco Use Types Packs/Day Years [...] encounter Miscellaneous Notes * Telephone Encounter - Ainsley Mcdaniels LPN - 05/29/2024 12:11 PM EST To soon to refill last filled 03.26.24 #[id number] * Telephone Encounter - Murali Ledbetter - 05/29/2024 12:03 PM EST TC from pt requesting medication refill. Medications needing refill : rOPINIRole (Requip) 4 MG tablet To be sent to: [facility] pharmacy documented in this encounter Plan of Treatment Upcoming Encounters Date Type Department Care Team (Late st Contact Info) Description 07/26/2024 9:45 AM EDT Office Visit [facility] MEDICINE [address] [place] [address] Jessi Dueñas MD [address] [place] [address] documented as of this encounter Visit Diagnoses Not on filedocumented in this encounter Additional Health Concerns Assessment Noted Time PHQ-9 Depression Total Score: 8 06/18/20 24 11:07 AM EDT documented as of this encounter Care Teams Plate Embosser Relationship Specialty Start Date End Date Jessi Dueñas MD [address] [place] [address] PCP - General Family Medicine 11/24/20 Mikayla Bhagat Concreting SupervisorDirector Of Capital Giving 05/09/23 documented as of this encounter
--- OUTSIDE RECORDS SUMMARY | 2024-05-30 07:26 | XMS_ITS | Encounter Summary ---
Author Organization [employer] Address [address] [facility] 7 [place] [address] Care Team Providers Care Pickling Solution Maker Name Role Phone Jessi Dueñas MD Primary Care Provider [phone] Reason for Visit * Reason Comments Transition Of Care (Tcm) ED visit reques felecia Encounter Details Date Type Department Care Team ([facility] st Contact Info) Description 05/29/2024 Patient Outreach [facility] MEDICINE [address] [place] [address] Jessi Dueñas MD [address] [place] [address] Transition Of Care (Tcm) (ED visit requested) Social History Tobacco Use Types Packs/Day Years [...] as of this encounter Progress Notes * Nina Severino - 05/29/2024 2:40 PM EST Patient is in need of a ED follow up visit. Was transferred to HDF line but conventional mortgage underwriter unable to schedule HDF . [facility] attempted to schedule 15 minute ED visit but patient is also requesting to be seen by PCP . Please contact patient with follow up . * Mary Hurtado RN - 05/29/2024 2:40 PM EST TC placed to patient [phone] in regards to below message. Patient reports she was seen at [facility] on 05/26/24 for vomiting, diarrhea, nausea and fatigue. Patient reports she continues to feel the same. Patient reports last vomited yesterday and has had diarrhea x4 today. Patient reports continued nausea. Patient was discharged from [facility] without any medications. Patient reports she is following the BRAT diet at this time. Patient follows with [facility] and reports she has a f/u appointment with them on 06/14. Patient also reports she has an MRI scheduled tomorrow for her abdomen which was ordered by GI prior to the ED visit. Patient reports she has not notified the GI office of her ED visit. Patient reports she has called them but the wait time is too long and she disconnects the call. Patient wants to be re-evaluated however provider does not have an appointment within 72 hours. Patient also does not want to come to [facility] as she reports she was seen on 05/25/24 and they recommended patient go to ED and f/u with GI. RN advised patient to call [facility] and inform of ED visit and continueds/s. Patient advised to continue with BRAT diet and to drink gatorade and increase fluid intake. Patient advised if she is unable to tolerate fluids to return to ED. Patient verbalized understanding and reports she will go directly to GI office in person after her MRI appointment. Patient to f/u PRN. documented in this encounter Plan of Treatment Upcoming Encounters Date Type Department Care Team (Late st Contact Info) Description 07/26/2024 9:45 AM EDT Office Visit [facility] MEDICINE [address] [place] [address] Jessi Dueñas MD [address] [place] [address] documented as of this encounter Visit Diagnoses Not on filedocumented in this encounter Additional Health Concerns Assessment Noted Time PHQ-9 Depression Total Score: 8 09/19/19 24 11:07 AM EDT documented as of this encounter Care Teams Pickling Solution Maker Relationship Specialty Start Date End Date Jessi Dueñas MD [address] [place] [address] PCP - General Family Medicine 11/24/20 Mikayla Bhagat Assembler Fluorescent LightsCable Splicer Assistant 05/09/23 documented as of this encounter
--- OUTSIDE RECORDS SUMMARY | 2024-05-30 07:26 | XMS_ITS | Encounter Summary ---
Author Organization [employer] [facility] Address [address] [facility] 7t [place] [address] Care Team Providers Care Laborer Construction Or Leak Gang Name Role Phone Jessi Dueñas MD Primary Care Provider [phone] Reason for Visit * Reason Comments Vomiting Diarrhea Encounter Details Date Type Department Care Team ([facility] st Contact Info) Description 05/25/2024 9:40 AM EST Office Visit [facility] [address] [place] [address] [phone] Name, MD Ignacio [address] [place] [phone] Diarrhea, unspecified type (Primary Dx); Nausea and [...] Negative, Indeterminate Negative QC Media Lot # [id number] Rapid COVID Ag Negative Assessment/Plan Diagnoses and all orders for this visit: Diarrhea, unspecified type Comments: Continue symptomatic treatment at home. Keep follow-up appointment with GI. I recommended to go to the ER for IV fluids if she is unable to keep p.o. liquids down. Orders: - POCT Rapid Influenza B BOYRE ID NOW - POCT Rapid Influenza A [...] EDT Office Visit [facility] [address] [place] [address] Jessi Dueñas MD [address] [place] [address] documented as of this encounter Procedures Procedure [...] BOYER ID NOW (05/25/2024 9:52 AM EST) [facility] Influenza B Negative Negative, Indeterminate [facility] QC Media Lot # [id number] [facility] Lot# Expiration Date [facility] Swab 05/25/2024 9:52 AM EST us Ignacio Rivera MD POINT OF CARE TEST ENTER/EDIT OR DERABLES Final Result [facility] [address] [place] [address] [phone] * POCT Rapid Covid-19 BinaxNOW (05/25/2024 9:51 AM EST) [facility] Rapid COVID Ag Negative QC Media Lot # [id number] Lot# Expiration Date Swab 05/25/2024 9:51 AM EST us Ignacio Rivera MD POINT OF CARE TEST ENTER/EDIT OR DERABLES Final Result * POCT Rapid Influenza A BYOER ID NOW (05/25/2024 9:51 AM EST) Influenza A Negative Negative, Indeterminate [facility] QC Media Lot # [id number] [facility] Lot# Expiration Date 10,[id number] [facility] Swab 05/25/2024 9:51 AM EST Ignacio Name POINT OF CARE TEST ENTER/EDIT OR DERABLES Final Result Performing Organization Address City/State/[facility] Co de Phone Number [facility] [address] [place] [phone] documented in this encounter Visit Diagnoses Diagnosis Diarrhea, unspecified type- Primary Nausea and vomiting, unspecified vomiting type documented in this encounter Additional Health Concerns Assessment Noted Time PHQ-9 Depression Total Score: 8 09/19/19 24 11:07 AM EDT documented as of this encounter Care Teams Laborer Construction Or Leak Gang Relationship Specialty Start Date End Date Jessi Dueñas MD [address] [place] [phone] PCP - General Family Medicine 11/24/20 Mikayla Bhagat Athletic Equipment CustodianRevenue Liaison 05/09/23 documented as of this encounter
--- OUTSIDE RECORDS SUMMARY | 2024-05-30 07:26 | XMS_ITS | Encounter Summary ---
Author Organization [employer] Address [address] [facility] 7 [place] [address] Care Team Providers Care Access Representative Name Role Phone Jessi Dueñas MD Primary Care Provider [phone] Reason for Visit * Reason Comments Weight Management Encounter Details Date Type Department Care Team ([facility] st Contact Info) Description 05/17/2024 11:00 AM EST Office Visit [facility] MEDICINE [address] [place] [address] Jessi Dueñas MD [address] [place] [address] Weight loss of more than 10% body [...] the past 12 months, has t he [employer], gas, oil or water [employer] threatened to shut off services in your [...] of medications Psychiatrist is Ainsley Queen at [facility] I am concerned about the potential for Seroquel to cause abnormal movements, she was also previously on Reglan for nausea, and is already on Ropinirole for restless leg syndrome. Sleep study at [facility]: 03/11/24 no KATHARINE, 2.2 periodic leg movements [...] things, trouble getting dressed. Has [employer] for DIRECT MARKETING REPRESENTATIVE. U tox positive in the ER for cocaine and marijuana 02/06/23. She smokes marijuana daily, from the same dealer. Denies explicit or known use of cocaine. Was buying Tramadol off the street. Saw Rheum with complete serologies 06/29/23 JUANITO positive in low titer 2022, saw rheum 06/2023 Dr Wilson Anxiety/bipolar Has therapist and psych prescriber (Ainsley Queen) at [facility] On Seroquel 400mg daily On Prozac 20mg [...] her youngest daughter, other daughter lives in [place] Has DIRECT MARKETING REPRESENTATIVE, 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 Respiratory: [...] 02, 2024., Disp: 56 tablet, Rfl: 0 Pashto Translation: Provided by [facility] staff member AVINASH Llamas documented in this [...] [facility] [address] [place] [address] Jessi Dueñas MD [address] [place] [address] documented as of this encounter Visit Diagnoses Diagnosis Weight loss of more than 10% body weight- Primary Post concussion syndrome Postconcussion syndrome Gastroesophageal reflux disease without esophagitis Esophageal reflux Bipolar affective disorder, currently depressed, moderate ([facility]) Bipolar I disorder, most recent episode (or current) depressed, moderate Fibromyalgia Unspecified myalgia and myositis documented in this encounter Additional Health Concerns Assessment Noted Time PHQ-9 Depression Total Score: 8 09/19/19 24 11:07 AM EDT documented as of this encounter Care Teams Access Representative Relationship Specialty Start Date End Date Jessi Dueñas MD [address] [place] [phone] PCP - General Family Medicine 11/24/20 Mikayla Bhagat Supervisor Commissary ProductionHi Ranger Operator 05/09/23 documented as of this encounter
--- OUTSIDE RECORDS SUMMARY | 2024-05-30 07:26 | XMS_ITS | Encounter Summary ---
Author Organization [employer] Address [address] [facility] 7 [place] [address] Care Team Providers Care Traffic Lieutenant Name Role Phone Jessi Dueñas MD Primary Care Provider [phone] Reason for Visit * Reason Onset Date Comments Med Refill 05/29/2024 Encounter Details Date Type Department Care Team ([facility] st Contact Info) Description 05/29/2024 Telephone [facility] [address] [place], [place] [phone] Jessi Dueñas MD [address] [place], [place] [phone] Med Refill Social History Tobacco Use Types [...] Telephone Encounter - 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 RN - 05/29/2024 11:37 AM EST Per Candida, Tramadol last picked up 05/06/24. Refill due 06/03/24. Will forward to PCP on 05/31/24. * Telephone Encounter - Murali Ledbetter - 05/29/2024 10:47 AM EST TC from pt requesting medication refill. Medications needing refill : traMADol (Ultram) 50 MG tablet To be sent to: [facility] documented in this encounter Plan of Treatment Upcoming Encounters Date Type Department Care Team (Late st Contact Info) Description 07/26/2024 9:45 AM EDT Office Visit [facility] [address] [place], [place] [phone] Jessi Dueñas MD [address] [place], [place] [phone] documented as of this encounter Visit Diagnoses Not on filedocumented in this encounter Additional Health Concerns Assessment Noted Time PHQ-9 Depression Total Score: 8 09/19/19 24 11:07 AM EDT documented as of this encounter Care Teams Traffic Lieutenant Relationship Specialty Start Date End Date Jessi Dueñas MD [address] [place] [phone] PCP - General Family Medicine 11/24/20 Mikayla Bhagat [employer] Operator HelperImmigration Case Manager 05/09/23 documented as of this encounter
--- OUTSIDE RECORDS SUMMARY | 2024-05-30 07:26 | XMS_ITS | Encounter Summary ---
Author Organization [employer] Address [address] [facility] [address] [place] [address] Care Team Providers Care Comb Capper Name Role Phone Jessi Dueñas MD Primary Care Provider [phone] Encounter Details Date Type Department Care Team [...] Office Visit [facility] [address] [place], [place] [phone] Jessi Dueñas MD [address] [place], [place] [phone] documented as of this encounter Procedures Procedure [...] EST) Vitamin D, 25-OH, D2 <4 ng/mL [facility] Comment:This test was develo ped and its analytical performancecharacteristics have been determined by [employer] [place], [place]. It hasnot been cleared or approved by the .S. Food and DrugAdministration. This assay has been validated pursuantto the CLIA regulations and is used for clinicalpurposes.THIS TEST WAS PERFORMED AT:[employer] [place] [address]DPZHUSIKHANG MADRID MD,PHD Vitamin D, 25-OH, D3 31 ng/mL [facility] Comment:This test was develo ped and its analytical performancecharacteristics have been determined by [facility] [place], [place]. It hasnot been cleared or approved by the U.S. Food and DrugAdministration. This assay has been validated pursuantto the CLIA regulations and is used for clinicalpurposes. Vitamin D, 25-OH, Total 31 30 - 100 ng/mL [facility] Comment:Vitamin D, 25-Hydrox y reports [...] = 30 ng/mL.For additional information, please refer tohttp://education.[employer]/faq/BFV671(This link is being provided for informational/educational purposes only.) 05/17/2024 9:40 AM EST 05/17/2024 9:40 AM EST us Generic External Data Provider LAB BLOOD ORDERAB LES Final Result [facility] [address] [place] [phone] * Vitamin B12 (Cobalamin) and Folate Panel, Serum (05/17/2024 9:40 AM EST) Vitamin B12 474 200 - 900 pg/mL [facility] Comment:NORMAL 200-900 PG/ML INDETERMINATE 160-199 PG/ML DEFICIENT < 160 PG/ML Folate 15.2 > or = 4.0 ng/mL [facility] Comment:Reference Values:> o r = 4.0 ng/mL< 4.0 ng/mL suggests folate deficiency Methotrexate, aminopterin and folinic acid(leucovorin) are chemotherapeutic agents whose molecularstructures are similar to folate; therefore, the Architectfolate assay cannot be used for patients using these drugs. 05/17/2024 9:40 AM EST 05/17/2024 9:40 AM EST us Generic External Data Provider LAB BLOOD ORDERAB LES Final Result [facility] [address] [place] [phone] * HIV-1/2 Antigen and Antibodies, Fourth Generation, with Reflexes (05/17/2024 9:40 AM EST) Pathologist [facility] HIV AB/AG Nonreactive Nonreactive [facility] Comment:HIV-1 p24 Ag and/or HIV-1/HIV-2 Ab not detected.A test result that is nonreactive does not exclude thepossibility of exposure to or infection with HIV-1 and/orHIV-2. Nonreactive results in this assay for individualswith prior exposure to HIV-1 and/or HIV-2 may be due toantigen and antibody levels that are below the limit ofdetection of this assay.The [employer] HIV Ag/Ab Combo assay result andsupplemental assay results should be interpreted inconjunction with the patient's clinical presentation,history and other laboratory results. If the results areinconsistent with clinical evidence, additional testing issuggested to confirm the result. 05/17/2024 9:40 AM EST 05/17/2024 9:40 AM EST us Generic External Data Provider LAB BLOOD ORDERAB LES Final Result Performing Organization Address City/[facility]/ZIP Co de Phone Number [facility] [address] [place] [phone] * Hepatitis Panel, General (05/17/2024 9:40 AM EST) Hepatitis A IgM Nonreactive Nonreactive [facility] Comment:IgM antibodies to AMAYA V not detected; does not exclude earlyacute or recovered HAV infection. ~Hepatitis B Surface Antibody REACTIVE Nonreactive [facility] Comment:REACTIVE: > 11.99 mI U/mL Hepatitis B Core Antibody Nonreactive Nonreactive [facility] Hepatitis C Antibody Nonreactive Nonreactive [facility] Comment:Antibodies to HCV no t detected; does not exclude early acuteHCV infection. Hepatitis B Surface Ag Negative Negative [facility] 05/17/2024 9:40 AM EST 05/17/2024 9:40 AM EST us Generic External Data Provider LAB BLOOD ORDERAB LES Final Result Performing Organization Address City/[facility]/ZIP Co de Phone Number [facility] [address] [place] [phone] * TSH with Reflex to Free T4 (05/17/2024 9:40 AM EST) TSH reflex Free T4 1.12 0.32 - 4.0 uIU/mL [facility] 05/17/2024 9:40 AM EST 05/17/2024 9:40 AM EST us Generic External Data Provider LAB BLOOD ORDERAB LES Final Result Performing Organization Address City/[facility] Co de Phone Number [facility] [address] [place] [phone] * Lipase (05/17/2024 9:40 AM EST) Lipase 15 8 - 78 U/L [facility] 05/17/2024 9:40 AM EST 05/17/2024 9:40 AM EST us Generic External Data Provider LAB BLOOD ORDERAB LES Final Result Performing Organization Address [facility] de Phone Number [facility] [address] [place] [phone] * Hepatic Function Panel (05/17/2024 9:40 AM EST) Bilirubin, Total 0.5 0.0 - 1.0 mg/dL [facility] Bilirubin, Direct 0.2 0.0 - 0.5 mg/dL [facility] Aspartate Amino Transferase 26 5 - 31 U/L [facility] Alanine Aminotransferase 25 0 - 31 U/L [facility] Total Protein 8.0 6.5 - 8.0 g/dL [facility] Albumin Level 4.6 3.5 - 5.0 g/dL [facility] Alkaline Phosphatase 55 39 - 117 U/L [facility] 05/17/2024 9:40 AM EST 05/17/2024 9:40 AM EST Generic External Data Provider LAB BLOOD ORDERAB LES Final Result Performing Organization Address [facility] Phone Number [facility] [address] [place] [phone] documented in this encounter Visit Diagnoses Not on filedocumented in this encounter Additional Health Concerns Assessment Noted Time PHQ-9 Depression Total Score: 8 09/19/19 24 11:07 AM EDT documented as of this encounter Care Teams Comb Capper Relationship Specialty Start Date End Date Jessi Dueñas MD [address] [place] [phone] PCP - General Family Medicine 11/24/20 Mikayla Bhagat Field Artillery Senior SergeantConsumer Electronics Merchandiser 05/09/23 documented as of this encounter
--- OUTSIDE RECORDS SUMMARY | 2024-05-30 07:26 | XMS_ITS | Encounter Summary ---
Author Organization [employer] Address [address] [facility] [address] [place] [address] Care Team Providers Care Sales Account Manager Name Role Phone Jessi Dueñas MD Primary Care Provider [phone] Reason for Visit * Reason Comments Med Refill Encounter Details Date Type Department Care Team ([facility] st Contact Info) Description 05/12/2024 Refill [facility] [address] [place], [place] [phone] Jessi Dueñas MD [address] [place], [place] [phone] Allergic rhinitis, unspecified seasonality, unspecified trigger Social [...] Description 07/26/2024 9:45 AM EDT Office Visit [facility] [address] [place] [phone] Jessi Dueñas MD [address] [place] [phone] documented as of this encounter Visit Diagnoses Diagnosis Allergic rhinitis, unspecified seasonality, unspecified trigger documented in this encounter Additional Health Concerns Assessment Noted Time PHQ-9 Depression Total Score: 8 09/19/19 24 11:07 AM EDT documented as of this encounter Care Teams Sales Account Manager Relationship Specialty Start Date End Date Jessi Dueñas MD [address] [place] [phone] PCP - General Family Medicine 11/24/20 Mikayla Bhagat Engineering ScientistCnc Technician 05/09/23 documented as of this encounter
--- OUTSIDE RECORDS SUMMARY | 2024-05-30 07:27 | XMS_ITS | Clinical Summary ---
Author Organization [employer] Address [address] [place] [address] Care Team Providers Care Lineman Apprentice Name Role Phone Jessi Dueñas MD Primary Care Provider [phone] Allergies Active Allergy Reactions Criticality Noted Date [...] day. 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 To go to medical records and [...] (05/19/2023 10:31 AM EST): Plan to see [facility] rheumatology in June 2023, JUANITO + , [...] 12:59 PM EST): Will send referral to [facility] rheumatology, JUANITO + , whole body pain, fatigue, all worse after two episodes of C diff Still likely fibromyalgia Recommend avoidance of marijuana and cocaine, drugs purchased on the street Assessment & Plan (01/04/2023 7:56 PM EDT): Will send referral to [facility] rheumatology, JUANITO + , whole body pain, [...] aware of side effects, somnolence, 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 Neck pain 10/27/2022 [...] & Plan (02/20/2023 12:56 PM EST): Call [facility] to get appointment at their Rheum clinic [...] Encounters Date Type Department Care Team Description 05/29/2024 Patient Outreach [facility] MEDICINE [address] [place] [phone] Jessi Dueñas MD Transition Of Care (Tcm) (ED visit requested) 05/29/[address] [address] Jessi Dueñas MD Med Refill 05/29/2024 Telephone [facility] MEDICINE [address] [place] [phone] Jessi Dueñas MD Med Refill 05/28/2024 Patient Outreach [address] [address] Jessi Dueñas MD Transition Of Care (Tcm) (ERRORr) 05/27/2024 Patient Outreach [address] [phone] Jessi Dueñas MD Care Coordination ([address] [place] Delia Doshi telephone call outreach /) 05/27/2024 Patient Outreach [address] [phone] Jessi Dueñas MD Care Coordination (C3 -[facility] [place] Del[place] Doshi telephone call outreach) 05/27/2024 Telephone [facility] MEDICINE [address] [place] [phone] Jessi Dueñas MD Care Management (C3CM- chart review) 05/25/2024 9:40 AM EST Office Visit [facility] [place] [address] Ignacio Rivera MD Diarrhea, unspecified type (Primary Dx); Nausea and vomiting, unspecified vomiting type 05/25/2024 Orders Only GENERIC EXTERNAL DATA DEPARTMENT Provider, Generic External Data 05/17/2024 11:00 AM EST Office Visit [facility] MED[facility]INE [address] [place] [phone] Jessi Dueñas MD Weight loss of more than 10% body weight (Primary Dx); Post concussion syndrome; Gastroesophageal reflux disease without esophagitis; Bipolar affective disorder, currently depressed, moderate (CMS/[facility]); Fibromyalgia 05/17/2024 Orders Only GENERIC EXTERNAL DATA DEPARTMENT Provider, Generic External Data 05/17/2024 Travel 05/13/2024 Telephone [facility] MEDICINE [address] [place] [phone] Jessi Dueñas MD [place] BIMA (Disposable Underpad/Chux Large) 05/12/2024 Refill [facility] MEDICINE [address] [place] [address] [phone] Jessi Dueñas MD Allergic rhinitis, unspecified seasonality, unspecified trigger 05/02/2024 Telephone [facility] MEDICINE [address] [place] [phone] Jessi Dueñas MD CurTran (Disposable underpad, large/1 unit = each, 248 per mo.) 04/29/2024 Refill [facility] [address] [place] [phone] Jessi Dueñas MD Fibromyalgia 04/17/2024 Telephone [facility] MED[facility]INE [address] [place] [address] Jessi Dueñas MD 04/17/2024 Orders Only [facility] [address] [place] [phone] Jessi Dueñas MD Acute bilateral low back pain without sciatica (Primary Dx); Polyarthralgia; Chronic pain of both knees; Bilateral hand pain 04/11/[address] [address] Jessi Dueñas MD Referral 04/09/2024 11:30 AM EST Office Visit [address] [address] Jessi Dueñas MD Acute right ankle pain (Primary Dx); Weight loss of more than 10% body weight; Bipolar disorder, current episode mixed, moderate (CMS/HCC); Mild persistent asthma without complication; Incontinence of feces, unspecified fecal incontinence type; Post concussion syndrome 04/09/[address] [address] Jessi Dueñas MD 04/09/[address] [address] Jessi Dueñas MD Durable Medical Equipment (L&C Form: Boost) 04/09/2024 Travel 04/04/[address] [address] Jessi Dueñas MD Medication Question 04/04/[address] [address] Jessi Dueñas MD Fibromyalgia 04/02/2024 Patient Outreach [address] [address] Jessi Dueñas MD Pre-visit Planning (SDOH screening completed on 05/09/2023) 04/01/[address] [address] Jessi Dueñas MD Durable Medical Equipment (L&C Form: Pull ups) 03/29/[address] [address] Jessi Dueñas MD telephone call 03/20/[address] [address] Jessi Dueñas MD Restless leg syndrome 03/11/2024 Telephone [facility] [address] [place] [address] Muriel Severino [place] Lab Orders 03/03/2024 Refill [facility] [address] [place] [address] Jessi Dueñas MD 02/28/2024 3:30 PM EST Office Visit [facility] [address] [place] [address] Jessi Dueñas MD Hand swelling (Primary Dx); Fibromyalgia; Hematoma of left knee region; Chronic pain of both knees; Bipolar disorder, current episode mixed, moderate (CMS/HCC) 02/28/2024 Travel from Last 3 Months Immunizations Name Administration [...] Description 07/26/2024 9:45 AM EDT Office Visit [facility] MEDICINE [address] [place] [address] Jessi Dueñas MD [address] [place] [address] Health Maintenance Due Date Last Done Comments [...] PM EST) Influenza A PCR NEGATIVE Negative [facility] Influenza B PCR NEGATIVE Negative [facility] Resp Syncy Virus RNA Qual PCR NEGATIVE Negative [facility] SARS COV2 PCR NEGATIVE Negative [facility] Comment:All test results mus t [...] use by authorized laboratories.Testing performed on the [employer] GeneXpert utilizingreal-time RT-PCR.All SARS CoV2 and positive influenza A/B results arereported to [facility]. 05/25/2024 11:5 9 PM EST 05/26/2024 12:02 AM EST us Generic External Data Provider LAB MICROBIOLOGY - GENERAL ORDERABLES Final Result [facility] [address] [place] [phone] * (ABNORMAL) CBC auto differential (05/25/2024 11:59 PM EST) White Blood Count 7.4 4.8 - 10.8 X10*3/uL [facility] Red Blood Count 3.94(L) 4.20 - 5.50 X10*6/uL [facility] Hemoglobin 12.4 12.0 - 16.0 g/dl [facility] Hematocrit 35.1(L) 37.0 - 47.0 % [facility] Mean Corpuscular Volume 89.1 80.0 - 98.0 fL [facility] Mean Corpuscular Hemoglobin 31.5 27.0 - 33.0 pg [facility] Mean Corpuscular HGB Conc 35.3(H) 31.0 - 35.0 g/dl [facility] Red Cell Distribution Width 12.4 11.0 - 16.0 % [facility] Platelet Count 284 160 - 400 X10*3/uL [facility] Mean Platelet Volume 9.2(L) 9.4 - 12.3 fL [facility] Neutrophils Percent Auto 43.6(L) 45 - 73 % [facility] Imm Gran Pct Auto 0.1 0.0 - 0.4 % [facility] Lymphocytes Percent Auto 49.7(H) 20 - 40 % [facility] Monocytes Percent Auto 6.3 2 - 11 % [facility] Eosinophils Percent Auto 0.3 0 - 4 % [facility] Basophils Percent Auto 0.0 0 - 2 % [facility] NRBC Pct Auto 0.0 0.0 - 0.2 /100WBC [facility] Neutrophils Absolute Auto 3.2 2.0 - 8.3 x10*3/uL [facility] Imm Gran Abs Auto 0.01 0.00 - 0.03 X10*3/uL [facility] Lymphocytes Absolute Auto 3.7 1.2 - 4.9 X10*3/uL [facility] Monocytes Absolute Auto 0.5 0.1 - 1.2 X10*3/uL [facility] Eosinophils Absolute Auto 0.0 0.0 - 0.4 X10*3/uL [facility] Basophils Absolute Auto 0.0 0.0 - 0.2 X10*3/uL [facility] NRBC Abs Auto 0.000 0.0 - 0.012 X10*3/uL [facility] 05/25/2024 11:5 9 PM EST 05/26/2024 12:02 AM EST us Generic External Data Provider LAB BLOOD ORDERAB LES Final Result [facility] [address] [place] [address] [phone] * hCG, Total, Quantitative (05/25/2024 11:59 PM EST) HCG Quantitative <2 mIU/mL [facility] Comment:Weeks post LMP Appro ximate hCG(Last Menstrual Period) Range (mIU/ml)3 - 4 weeks 9 - 1304 - 5 weeks 75 - 2,6005 - 6 weeks 850 - 20,8006 - 7 weeks 4000 - 100,2007 - 12 weeks 11,500 - 289,64707 - 16 weeks 18,300 - 137,59746 - 29 weeks (2nd trimester) 1,400 - 53,37471 - 41 weeks (3rd trimester) 940 - [...] LES Final Result Performing Organization Address [facility] Co de Phone Number [facility] [address] [place] [phone] * Magnesium (05/25/2024 11:59 PM EST) Magnesium 2.0 1.6 - 2.6 mg/dL [facility] 05/25/2024 11:5 9 PM EST 05/26/2024 12:02 AM EST us Generic External Data Provider LAB BLOOD ORDERAB LES Final Result Performing Organization Address [facility] Co de Phone Number [facility] [address] [place] [phone] * Lipase (05/25/2024 11:59 PM EST) Only the most recent of2 resultswithin the time period is included. Lipase 33 8 - 78 U/L [facility] 05/25/2024 11:5 9 PM EST 05/26/2024 12:02 AM EST us Generic External Data Provider LAB BLOOD ORDERAB LES Final Result Performing Organization Address [facility] Co de Phone Number [facility] [address] [place] [phone] * Hepatic Function Panel (05/25/2024 11:59 PM EST) Only the most recent of2 resultswithin the time period is included. Bilirubin, Total 0.5 0.0 - 1.0 mg/dL [facility] Bilirubin, Direct 0.2 0.0 - 0.5 mg/dL [facility] Aspartate Amino Transferase 21 5 - 31 U/L [facility] Alanine Aminotransferase 21 0 - 31 U/L [facility] Total Protein 6.9 6.5 - 8.0 g/dL [facility] Albumin Level 4.0 3.5 - 5.0 g/dL [facility] Alkaline Phosphatase 52 39 - 117 U/L [facility] 05/25/2024 11:5 9 PM EST 05/26/2024 12:02 AM EST us Generic External Data Provider LAB BLOOD ORDERAB LES Final Result [facility] [address] [place] [phone] * (ABNORMAL) Basic Metabolic Panel (05/25/2024 11:59 PM EST) Pathologist [facility] Sodium 140 135 - 145 mmol/L [facility] Potassium 3.6 3.3 - 5.1 mmol/L [facility] Chloride 110(H) 96 - 108 mmol/L [facility] Carbon Dioxide 23 22 - 29 mmol/L [facility] Anion Gap 11(L) 12 - 20 [facility] Urea Nitrogen (BUN) 14 9 - 16 mg/dL [facility] Creatinine, Serum 0.83 0.5 - 1.4 mg/dL [facility] Creatinine Clr Calc Pharmacy 74.7 [facility] Comment:Provided height and weight: 170.18 cm,53.1 kg.eGFR (calculated from the MDRD study equation) and eCrCl(calculated from the Cockcroft-Gault equation) are based ondifferent parameters and may not yield comparable results.If eCrCl result is absurd, please check patient'sheight/weight. Estimated Glomerular Filt Rate >60 [facility] Comment:Chronic Kidney Disea se: Estimated GFR < 60 mL/min/1.93r4Bcgnbt Kidney Disease: Estimated GFR < 15 mL/min/1.73m2 Glucose 100 60 - 115 mg/dL [facility] Calcium 8.8 8.4 - 10.2 mg/dL [facility] 05/25/2024 11:5 9 PM EST 05/26/2024 12:02 AM EST us Generic External Data Provider LAB BLOOD ORDERAB LES Final Result Performing Organization Address [facility] Co de Phone Number [facility] [address] [place] [phone] * POCT Rapid Influenza B BOYER ID NOW (05/25/2024 9:52 AM EST) Influenza B Negative Negative, Indeterminate [facility] QC Media Lot # [id number] [facility] Lot# Expiration Date [facility] Swab 05/25/2024 9:52 AM EST Ignacio Rivera MD POINT OF CARE TEST ENTER/EDIT OR DERABLES Final Result Performing Organization Address [facility] Co de Phone Number [facility] [address] [place] [phone] * POCT Rapid Influenza A BOYER ID NOW (05/25/2024 9:51 AM EST) Influenza A Negative Negative, Indeterminate [facility] QC Media Lot # [id number] [facility] Lot# Expiration Date [facility] Swab 05/25/2024 9:51 AM EST us Pierre Name POINT OF CARE TEST ENTER/EDIT OR DERABLES Final Result [facility] [address] [place] [address] [phone] * POCT Rapid Covid-19 BinaxNOW (05/25/2024 9:51 AM EST) Rapid COVID Ag Negative QC Media Lot # [id number] Lot# Expiration Date [id number] Swab 05/25/2024 9:51 AM EST Ignacio Name POINT OF CARE TEST ENTER/EDIT OR DERABLES Final Result * VITAMIN D 25-OH (D2 AND D3) (05/17/2024 9:40 AM EST) Vitamin D, 25-OH, D2 <4 ng/mL [facility] Comment:This test was develo ped and its analytical performancecharacteristics have been determined by [facility]. It hasnot been cleared or approved by the U.S. Food and DrugAdministration. This assay has been validated pursuantto the CLIA regulations and is used for clinicalpurposes.THIS TEST WAS PERFORMED AT:[employer]/[id number] [place] [phone] W. MASON,MD,PHD Vitamin D, 25-OH, D3 31 ng/mL [facility] Comment:This test was develo ped and its analytical performancecharacteristics have been determined by [facility] [place]. It hasnot been cleared or approved by the U.S. Food and DrugAdministration. This assay has been validated pursuantto the CLIA regulations and is used for clinicalpurposes. Vitamin D, 25-OH, Total 31 30 - 100 ng/mL [facility] Comment:Vitamin D, 25-Hydrox y reports [...] = 30 ng/mL.For additional information, please refer tohttp://education.[employer]/faq/YPI451(This link is being provided for informational/educational purposes only.) 05/17/2024 9:40 AM EST 05/17/2024 9:40 AM EST us Generic External Data Provider LAB BLOOD ORDERAB LES Final Result [facility] [address] [place] [phone] * Vitamin B12 (Cobalamin) and Folate Panel, Serum (05/17/2024 9:40 AM EST) Vitamin B12 474 200 - 900 pg/mL [facility] Comment:NORMAL 200-900 PG/ML INDETERMINATE 160-199 PG/ML DEFICIENT < 160 PG/ML Folate 15.2 > or = 4.0 ng/mL [facility] Comment:Reference Values:> o r = 4.0 ng/mL< 4.0 ng/mL suggests folate deficiency Methotrexate, aminopterin and folinic acid(leucovorin) are chemotherapeutic agents whose molecularstructures are similar to folate; therefore, the Architectfolate assay cannot be used for patients using these drugs. 05/17/2024 9:40 AM EST 05/17/2024 9:40 AM EST us Generic External Data Provider LAB BLOOD ORDERAB LES Final Result Performing Organization Address City/[facility]/ZIP Co de Phone Number [facility] [address] [place] [phone] * TSH with Reflex to Free T4 (05/17/2024 9:40 AM EST) Pathologist [facility] TSH reflex Free T4 1.12 0.32 - 4.0 uIU/mL [facility] 05/17/2024 9:40 AM EST 05/17/2024 9:40 AM EST Generic External Data Provider LAB BLOOD ORDERAB LES Final Result Performing Organization Address [facility] Co de Phone Number [facility] [address] [place] [phone] * Hepatitis Panel, General (05/17/2024 9:40 AM EST) [facility] Hepatitis A IgM Nonreactive Nonreactive [facility] Comment:IgM antibodies to AMAYA V not detected; does not exclude earlyacute or recovered HAV infection. ~Hepatitis B Surface Antibody REACTIVE Nonreactive [facility] Comment:REACTIVE: > 11.99 mI U/mL Hepatitis B Core Antibody Nonreactive Nonreactive [facility] Hepatitis C Antibody Nonreactive Nonreactive [facility] Comment:Antibodies to HCV no t detected; does not exclude early acuteHCV infection. Hepatitis B Surface Ag Negative Negative [facility] 05/17/2024 9:40 AM EST 05/17/2024 9:40 AM EST Generic External Data Provider LAB BLOOD ORDERAB LES Final Result Performing Organization Address [facility] Co de Phone Number [facility] [address] [place] [phone] * HIV-1/2 Antigen and Antibodies, Fourth Generation, with Reflexes (05/17/2024 9:40 AM EST) Pathologist [facility] HIV AB/AG Nonreactive Nonreactive [facility] Comment:HIV-1 p24 Ag and/or HIV-1/HIV-2 Ab not detected.A test result that is nonreactive does not exclude thepossibility of exposure to or infection with HIV-1 and/orHIV-2. Nonreactive results in this assay for individualswith prior exposure to HIV-1 and/or HIV-2 may be due toantigen and antibody levels that are below the limit ofdetection of this assay.The [employer] 360 HIV Ag/Ab Combo assay result andsupplemental assay results should be interpreted inconjunction with the patient's clinical presentation,history and other laboratory results. If the results areinconsistent with clinical evidence, additional testing issuggested to confirm the result. 05/17/2024 9:40 AM EST 05/17/2024 9:40 AM EST us Generic External Data Provider LAB BLOOD ORDERAB LES Final Result [facility] [address] [place] [address] [phone] * XR Ankle 3+ Views Right (04/09/2024 12:22 PM EST) Anatomical Region Laterality Modality Lower Extremities, Ankle Right Radiogr aphic Imaging 04/09/2024 12:2 2 PM EST Narrative 04/09/2024 12:45 PM EST ?[facility] ?[address] ?[place] [address] ?XRay Report ? Signed ? Patient: Kera Armstrong ?MR#: MM ?? [id number] ? : 1980 ?Acct:[id number] ? Age/Sex: 43 / F ?ADM Date: 04/09/24 ? Loc: HO.HHCX ? Attending Dr: Jessi Dueñas MD ? Ordering Physician: Jessi Dueñas ?? Date of Service: 04/09/24 ?? Procedure(s): XR ankle RT min 3V ?? Accession Number(s): [id number] ? cc: Jessi Dueñas ? EXAMINATION: ?? [...] DD/ 1222 ? TD/TT: 04/09/24 1231 ? Water Pumper: ALTON ? Procedure Note Donotcheyenneinterpreter, Image - 04/09/2024 [facility] [address] [place] [address] XRay Report Signed Patient: Kera ArmstrongMR#: [id number] : 1980Acct:[id number] Age/Sex: 43 / FADM Date: 04/09/24 Loc: HO.HHCX Attending Dr: Jessi Dueñas MD Ordering Physician: Jessi Dueñas Date of Service: 04/09/24 Procedure(s): XR ankle RT min 3V Accession Number(s): [id number] cc: Jessi Dueñas EXAMINATION: XR ANKLE, RIGHT [...] Merritt Elizalde MD 04/09/2024 12:42 PM EST Dictated By: Merritt Elizalde MD Signed By: <Electronically signed by Merritt Elizalde MD in OV> 04/09/24 1242 DD/ 1222 TD/TT: 04/09/24 1231 Water Pumper: ALTON Jessi Dueñas MD IMG XR PROCEDURES Edited Resul t - Final * XR Hand 3+ Views Right (03/04/2024 12:09 PM EST) Anatomical Region Laterality Modality Upper Extremities, Hand Right [facility]ogra [facility] 03/04/2024 12:0 9 PM EST Narrative 03/04/2024 4:08 PM EST ?[facility] ?[address] ?[place] [address] ?XRay Report ? Signed ? Patient: Kera Armstrong ?MR#: MM ?? [id number] ? : 1980 ?Acct:[id number] ? Age/Sex: 43 / F ?ADM Date: 03/04/24 ? Loc: HO.HHCX ? Attending Dr: Jessi Dueñas MD ? Ordering Physician: Jessi Dueñas ?? Date of Service: 03/04/24 ?? Procedure(s): XR hand RT min 3V ?? Accession Number(s): [id number] ? cc: Jessi Dueñas ? EXAMINATION: ?? [...] ??Pratibha Stevens MD ??03/04/2024 04:05 PM EST ? Dictated By: ?Pratibha Stevens MD ? Signed By: ?<Electronically signed by Pratibha Stevens MD in OV> ? 03/04/24 1605 ? DD/ 1209 ? TD/TT: 03/04/24 1220 ? Water Pumper: PN ? Procedure Note Cy, Image - 03/04/[address] [address] XRay Report Signed Patient: Kera Armstrong#: [id number] : 1980Acct:[id number] Age/Sex: 43 / FADM Date: 03/04/24 Loc: HO.HHCX Attending Dr: Jessi Dueñas MD Ordering Physician: Jessi Dueñas Date of Service: 03/04/24 Procedure(s): XR hand RT min 3V Accession Number(s): [id number] cc: Jessi Dueñas EXAMINATION: XR HAND, RIGHT [...] 04:05 PM EST RP Dictated By: Pratibha Steevns MD Signed By: <Electronically signed by Pratibha Stevens MD in OV> 03/04/24 1605 DD/ 1209 TD/TT: 03/04/24 1220 Water Pumper: PN Jessi Dueñas MD IMG XR PROCEDURES Final Result * XR Hand 3+ Views Left (03/04/2024 12:09 PM EST) Anatomical Region Laterality Modality Upper Extremities, Hand Left Radiogra phic Imaging 03/04/2024 12:0 9 PM EST Narrative 03/04/2024 4:08 PM EST ?[facility] ?[address] ?[place] [address] ?XRay Report ? Signed ? Patient: Kera Armstrong ?MR#: MM ?? [id number] ? : 1980 ?Acct:[id number] ? Age/Sex: 43 / F ?ADM Date: 12/02/24 ? Loc: HO.HHCX ? Attending Alyson Dueñas MD ? Ordering Physician: Jessi Dueñas ?? Date of Service: 03/04/24 ?? Procedure(s): XR hand LT min 3V ?? Accession Number(s): [id number] ? cc: Jessi Dueñas ? EXAMINATION: ?? [...] DD/ 1209 ? TD/TT: 03/04/24 1220 ? Water Pumper: PN ? Procedure Note Cy, Image - 03/04/[address] [address] XRay Report Signed Patient: Kera ArmstrongMR#: [id number] : 1980Acct:[id number] Age/Sex: 43 / FADM Date: 03/04/24 Loc: HO.HHCX Attending Dr: Jessi Dueñas MD Ordering Physician: Jessi Dueñas Date of Service: 03/04/24 Procedure(s): XR hand LT min 3V Accession Number(s): [id number] cc: Jessi Dueñas EXAMINATION: XR HAND, LEFT [...] 03/04/24 1604 DD/ 1209 TD/TT: 03/04/24 1220 Water Pumper: PN us Jessi Dueñas MD IMG XR PROCEDURES Final Result * BI Mammogram Screening Tomosynthesis Bilateral (09/28/2023 12:08 PM EDT) Anatomical Region Laterality Modality Breast Bilateral Mammography 09/28/2023 12:0 8 PM EDT Narrative 10/27/2023 9:20 AM EDT ? [facility] ? [address] ?[place], [place] [address] ? Mammography Report ? Signed ? Patient: Kera Armstrong ?MR#: MM ?? [id number] ? : 1980 ?Acct:[id number] ? Age/Sex: 42 / F ?ADM Date: 09/28/23 ? Loc: HO.MAMMO ? Attending Dr: Jessi Dueñas MD ? Ordering Physician: Anita Arriaga MD ?Re ?? sults: 1Negative ? Date of Service: 09/28/23 ?Follow Up: 1 Year From Orig ?? inal Mammogram ? Procedure(s): MM tomosynthesis screening BI ?? Accession Number(s): [id number] ? cc: Jessi Dueñas; Anita Arriaga MD [...] 0916 ? DD/ 1208 ? TD/TT: ? Water Pumper: ? Procedure Note Doncelsoter, Image - 10/27/2023 [place] [facility] [address] [place] [address] Mammography Report Signed Patient: Kera Armstrong#: BRIAN [id number] : 1980Acct:[id number] Age/Sex: 42 / FADM Date: 09/28/23 Loc: [facility] Attending Dr: Jessi Dueñas MD Ordering Physician: Anita Arriaga sults: 1Negative Date of Service: 09/28/23Follow Up: 1 Year From Orig inal Mammogram Procedure(s): MM tomosynthesis screening BI Accession Number(s): [id number] cc: Jessi Dueñas; Anita Arriaga MD EXAMINATION: [...] in OV> 10/27/23 0916 DD/ 1208 TD/TT: Water Pumper: Anita Roca MD IMG BI PROCEDURES Final Result * THINPREP TIS PAP (02/22/2021 12:00 AM EST) Clinical Information: None given [facility] COMMENT SEE COMMENT [facility]OUND[facility] ON [...] was manually screened according to routine procedures. Epic Manager : SEE COMMENT [facility] Comment: KN, CT(ASCP) CT screening location: [address] ??[address] Interpretation/R esult: Negative for intraepithelial lesion or malignancy. [facility] LMP: NONE GIVEN [facility] Prev. BX: NONE GIVEN [facility] Prev. PAP: NONE GIVEN [facility] ON [facility] SOURCE: None given [facility] Statement Of Adequacy: SEE COMMENT [facility] Comment: Satisfactory for evaluation. Endocervical/transformation zone component absent. Partially obscuring blood 02/22/2021 Jessi Dueñas MD LAB PATHOLOGY ORDERABLES Final Result Performing Organization Address [facility] Co de Phone Number [facility] [address] * HPV mRNA E6/E7 REFLEX TO HPV 16, 18/45 (02/22/2021 12:00 AM EST) HPV nRNA E6/E7 Not Detected Not Detected [facility] Comment: Methodology: Stonecutter-Mediated Amplification This assay detects E6/E7 viral messenger RNA (mRNA) from 14 high-risk HPV types (16,18,31,33,35,39,45,51,52,56,58,59,66,68). ? The analytical performance characteristics of this assay have been determined by [employer]. The modifications have not been cleared or approved by the FDA. This assay has been validated pursuant to the CLIA regulations and is used for clinical purposes. ?? For additional information, please refer to http://education.Collective Bias.OurStory/faq/NDO440y1 (This link if provided for information/ educational purposes only.) 02/22/2021 Jessi Dueñas MD LAB CYTOLOGY ORDERABLES Final Result Performing Organization Address [facility] Co de Phone Number [facility] [address] from Last 3 Months or Most Recently Relevant to Health Maintenance Insurance [facility] C3 HSN PARTIAL Care Teams Lineman Apprentice Relationship Specialty Start Date End Date Jessi Dueñas MD [address] [place] [address] PCP - General Family Medicine 11/24/20 Mikayla Bhagat Geophysical EngineerSafety Inspector 05/09/23
--- OUTSIDE RECORDS SUMMARY | 2024-05-30 07:27 | XMS_ITS | Encounter Summary ---
Author Organization [employer] Address 75 [facility] 7t [place] [address] Care Team Providers Care Er Registrar Name Role Phone Jessi Dueñas MD Primary Care Provider [phone] Encounter Details Date Type Department Care Team ([facility] st Contact Info) Description 02/08/2023 Telephone [facility] MEDICINE [address] [place], [place] [phone] Jessi Dueñas MD [address] [place], [place] [phone] Social History Tobacco Use Types Packs/Day Years [...] Description 07/26/2024 9:45 AM EDT Office Visit [facility] MEDICINE [address] [place] [address] Jessi Dueñas MD [address] [place] [address] documented as of this encounter Visit Diagnoses Not on filedocumented in this encounter Additional Health Concerns Assessment Noted Time PHQ-9 Depression Total Score: 20 023 9:49 AM EDT documented as of this encounter Care Teams Er Registrar Relationship Specialty Start Date End Date Jessi Dueñas MD [address] [place] [address] PCP - General Family Medicine 11/24/20 Mikayla Bhagat HhasSmoking Pipe Mounter 05/09/23 documented as of this encounter
--- OUTSIDE RECORDS SUMMARY | 2024-05-30 07:27 | XMS_ITS | Encounter Summary ---
Author Organization [facility] Address 75 [facility] 7t [place] [address] Care Team Providers Care Chemical Engineer Name Role Phone Jessi Dueñas MD Primary Care Provider Encounter Details Date Type Department Care Team (Late Contact Info) Description 03/29/2022 Orders Only [facility] MEDICINE [address] [place] [phone] Jessi Dueñas MD [address] [place] [phone] Choking episode occurring at night (Primary Dx) [...] Description 07/26/2024 9:45 AM EDT Office Visit [facility] MEDICINE [address] [place] [phone] Jessi Dueñas MD 230 [place] [address] documented as of this encounter Visit Diagnoses Diagnosis Choking episode occurring at night- Primary documented in this encounter Care Teams Chemical Engineer Relationship Specialty Start Date End Date Jessi Dueñas MD [address] [place], [place] [phone] PCP - General Family Medicine 11/24/20 Mikayla Bhagat Test Center AdministratorSafety Risk Lead 05/09/23 documented as of this encounter
--- OUTSIDE RECORDS SUMMARY | 2024-05-30 07:27 | XMS_ITS | Encounter Summary ---
Author Organization [employer] Address 75 [facility] 7t [place] [address] Care Team Providers Care Battery Mechanic Name Role Phone Jessi Dueñas MD Primary Care Provider Reason for Visit * Reason Onset Date Comments Nurse Triage 02/07/2023 Encounter Details Date Type Department Care Team ([facility] st Contact Info) Description 02/07/2023 Telephone [facility] MEDICINE [address] [place] [address] Jessi Dueñas MD 230 [place] [address] Nurse Triage Social History Tobacco Use Types [...] 02/07/2023 11:26 AM EST Triage call with MSU Business Incubator Manager Car ID [id number] Pt reports ED visit @ [facility] 02/06/23 for abdominal pain and migraines. Report is requested from [facility] clinical progressive care unit registered nurse. Pt reports was supposed to be getting [...] lower back pain states she went to [facility] last on 02/06 and did nothing. Patient speaks vincentian documented in this encounter Plan of Treatment Upcoming Encounters Date Type Department Care Team (Late st Contact Info) Description 07/26/2024 9:45 AM EDT Office Visit [facility] MEDICINE [address] [place] [address] Jessi Dueñas MD 230 [place] [address] documented as of this encounter Visit Diagnoses Not on filedocumented in this encounter Additional Health Concerns Assessment Noted Time PHQ-9 Depression Total Score: 20 023 9:49 AM EDT documented as of this encounter Care Teams Battery Mechanic Relationship Specialty Start Date End Date Jessi Dueñas MD 230 [place] [address] PCP - General Family Medicine 11/24/20 Mikayla Bhagat Tool And Die AssemblerRacker Octave Board 05/09/23 documented as of this encounter
--- OUTSIDE RECORDS SUMMARY | 2024-05-30 07:27 | XMS_ITS | Encounter Summary ---
Author Organization [employer] [facility] Address 75 [facility] 7 [place] [address] Care Team Providers Care Printing Supplies Sales Representative Name Role Phone Jessi Dueñas MD Primary Care Provider Reason for Visit * Reason Onset Date Comments Med Refill Tramadol refill denied 10/25/2023 Encounter Details Date Type Department Care Team (Late st Contact Info) Description 10/25/2023 Refill [facility] MEDICINE 230 [place] [address] Jessi Dueñas MD 230 [place] [address] Fibromyalgia Social History Tobacco Use Types Packs/Day [...] call her, when I get back from [place] and we can review this. Thank you! TC via P/I#[id number], unable to connect to the number, unable to leave message. Will forward message to PCP's M.A. to schedule a telephone appointment for patient as PCP requested. documented in this encounter Plan of Treatment Upcoming Encounters Date Type Department Care Team (Late st Contact Info) Description 07/26/2024 9:45 AM EDT Office Visit [facility] MEDICINE [address] [place], [place] [phone] Jessi Dueñas MD 230 [place] [address] documented as of this encounter Visit Diagnoses Diagnosis Fibromyalgia Unspecified myalgia and myositis documented in this encounter Additional Health Concerns Assessment Noted Time PHQ-9 Depression Total Score: 8 09/19/19 24 11:07 AM EDT documented as of this encounter Care Teams Printing Supplies Sales Representative Relationship Specialty Start Date End Date Jessi Dueñas MD 230 [place] [address] PCP - General Family Medicine 11/24/20 Mikayla Bhagat Machine MolderPlastic Cablemaking Machine Operator 05/09/23 documented as of this encounter
--- OUTSIDE RECORDS SUMMARY | 2024-05-30 07:27 | XMS_ITS | Encounter Summary ---
Author Organization [employer] [facility] Address 75 [facility] 7 [place] [address] Care Team Providers Care Dye Reel Operator Helper Name Role Phone Jessi Dueñas MD Primary Care Provider [phone] Reason for Visit * Reason Onset Date Comments Referral 12/23/2022 Encounter Details Date Type Department Care Team ([facility] st Contact Info) Description 12/23/2022 Telephone [facility] MEDICINE [address] [place] [phone] Jessi Dueñas MD [address] [place] [address] Referral Social History Tobacco Use Types Packs/Day [...] have interpreters. Any questions, contact pt at [phone] (German) documented in this encounter Plan of Treatment Upcoming Encounters Date Type Department Care Team (Late st Contact Info) Description 07/26/2024 9:45 AM EDT Office Visit [facility] MEDICINE [address] [place] [address] Jessi Dueñas MD [address] [place], [place] [phone] documented as of this encounter Visit Diagnoses Not on filedocumented in this encounter Additional Health Concerns Assessment Noted Time PHQ-9 Depression Total Score: 19 023 2:59 PM EST documented as of this encounter Care Teams Dye Reel Operator Helper Relationship Specialty Start Date End Date Jessi Dueñas MD 230 [place], [place] [phone] PCP - General Family Medicine 11/24/20 Mikayla Bhagat Veterinary Technician AssistantAutomotive Engineering Technician 05/09/23 documented as of this encounter
--- OUTSIDE RECORDS SUMMARY | 2024-05-30 07:27 | XMS_ITS | Encounter Summary ---
Author Organization [employer] [facility] Address 75 [facility] 7 [place] [address] Care Team Providers Care Supervisor Fusing Room Name Role Phone Jessi Dueñas MD Primary Care Provider [phone] Reason for Visit * Reason Onset Date Comments Results 05/23/2023 Encounter Details Date Type Department Care Team ([facility] st Contact Info) Description 05/23/2023 Telephone [facility] MEDICINE 230 [place] [address] Jessi Dueñas MD [address] [place] [address] Results Social History Tobacco Use Types Packs/Day [...] T/C to pt. For below message through WeMontage [place] - [id number], pt. Informed regarding normal x-ray result. pt. [...] case of any new or worsening symptoms. [facility] hours are reviewed. Pt. Verbally agreed and understood. * Telephone Encounter - Paco Sylvester - 05/24/2023 3:59 PM EST Tc from pt returning call. Please contact at [phone] * Telephone Encounter - Yumiko Whitaker RN - 05/24/2023 12:47 PM EST Return T/C to pt. For bellow message Normal x-ray result. No answer. LVM to call back on [phone]. * Telephone Encounter - Bran Parker - 05/23/2023 4:41 PM EST TC from pt requesting call back regarding Results. Type of results: X-Ray Date when done: 05/16/23 Facility: [facility] documented in this encounter Plan of Treatment Upcoming Encounters Date Type Department Care Team (Late st Contact Info) Description 07/26/2024 9:45 AM EDT Office Visit [facility] MEDICINE 230 [place], [place] [phone] Jessi Dueñas MD [address] [place], [place] [phone] documented as of this encounter Visit Diagnoses Not on filedocumented in this encounter Additional Health Concerns Assessment Noted Time PHQ-9 Depression Total Score: 20 023 9:49 AM EDT documented as of this encounter Care Teams Supervisor Fusing Room Relationship Specialty Start Date End Date Jessi Dueñas MD [address] [place] [address] PCP - General Family Medicine 11/24/20 Mikayla Bhagat Past Due Accounts ClerkLogging Rafter Laborer 05/09/23 documented as of this encounter
--- OUTSIDE RECORDS SUMMARY | 2024-05-30 07:27 | XMS_ITS | Encounter Summary ---
Author Organization [employer] Address 75 [facility] 7t [place] [address] Care Team Providers Care Plaster Mechanic Name Role Phone Jessi Dueñas MD Primary Care Provider [phone] Reason for Visit * Reason Comments Med Refill Encounter Details Date Type Department Care Team ([facility] st Contact Info) Description 11/23/2023 Refill [facility] MEDICINE 230 [place], [place] [phone] Jessi Dueñas MD [address] [place] [address] Social History Tobacco Use Types Packs/Day Years [...] 9:45 AM EDT Office Visit [facility] MEDICINE [address] [place] [address] Jessi Dueñas MD 230 [place] [address] documented as of this encounter Visit Diagnoses Not on filedocumented in this encounter Additional Health Concerns Assessment Noted Time PHQ-9 Depression Total Score: 8 09/19/19 24 11:07 AM EDT documented as of this encounter Care Teams Plaster Mechanic Relationship Specialty Start Date End Date Jessi Dueñas MD 230 [place] [address] PCP - General Family Medicine 11/24/20 Mikayla Bhagat Manager Strategic MarketingCare Transition Mgr 05/09/23 documented as of this encounter
--- OUTSIDE RECORDS SUMMARY | 2024-05-30 07:27 | XMS_ITS | Encounter Summary ---
Author Organization [employer] [facility] Address 75 [facility] 7t [place] [address] Care Team Providers Care Rail Signal Designer Name Role Phone Jessi Dueñas MD Primary Care Provider [phone] Encounter Details Date Type Department Care Team (Late st Contact Info) Description 10/12/2022 Orders Only [facility] MEDICINE [address] [place] [address] Jessi Dueñas MD [address] [place] [address] [phone] Acute bilateral low back pain, unspecified whether [...] Description 07/26/2024 9:45 AM EDT Office Visit [facility] MEDICINE [address] [place] [phone] Jessi Dueñas MD [address] [place] [address] documented as of this encounter Visit Diagnoses Diagnosis Acute bilateral low back pain, unspecified whether sciatica present- Primary Hematoma of left knee region Sprain of left medial ankle joint, subsequent encounter documented in this encounter Additional Health Concerns Assessment Noted Time PHQ-9 Depression Total Score: 19 023 2:59 PM EST documented as of this encounter Care Teams Rail Signal Designer Relationship Specialty Start Date End Date Jessi Dueñas MD [address] [place] [address] PCP - General Family Medicine 11/24/20 Mikayla Bhagat Marzipan MakerCollections Clerk 05/09/23 documented as of this encounter
--- OUTSIDE RECORDS SUMMARY | 2024-05-30 07:27 | XMS_ITS | Encounter Summary ---
Author Organization [facility] [facility] Address 75 [facility] 7t [place] [address] Care Team Providers Care Business Continuity Coordinator Name Role Phone Jessi Dueñas MD Primary Care Provider [phone] Reason for Visit * Reason Onset Date Comments Call Back Request 01/23/2024 Encounter Details Date Type Department Care Team ([facility] Contact Info) Description 01/23/2024 Telephone [facility] MEDICINE [address] [place], [place] [phone] Jessi Dueñas MD [address] [place], [place] [phone] Call Back Request Social History Tobacco Use [...] no scripts sent. Please contact pt at [phone]. (Martiniquais Speaker) documented in this encounter Plan of Treatment Upcoming Encounters Date Type Department Care Team (Late st Contact Info) Description 07/26/2024 9:45 AM EDT Office Visit [facility] MEDICINE [address] [place] [address] Jessi Dueñas MD [address] [place] [address] documented as of this encounter Visit Diagnoses Not on filedocumented in this encounter Additional Health Concerns Assessment Noted Time PHQ-9 Depression Total Score: 8 09/19/19 24 11:07 AM EDT documented as of this encounter Care Teams Business Continuity Coordinator Relationship Specialty Start Date End Date Jessi Dueñas MD [address] [place] [address] PCP - General Family Medicine 11/24/20 Mikayla Bhagat Wagon Driver SalespersonResidential Advisor 05/09/23 documented as of this encounter
--- OUTSIDE RECORDS SUMMARY | 2024-05-30 07:27 | XMS_ITS | Encounter Summary ---
Author Organization [employer] Address 75 [facility] 7 [place] [address] Care Team Providers Care Registration Manager Name Role Phone Jessi Dueñas MD Primary Care Provider [phone] Reason for Visit * Reason Comments Med Refill Encounter Details Date Type Department Care Team ([facility] st Contact Info) Description 10/25/2023 Refill [facility] MEDICINE [address] [place] [address] Anita Arriaga MD [address] [place] [address] Social History Tobacco Use Types Packs/Day Years [...] Description 07/26/2024 9:45 AM EDT Office Visit [facility] MEDICINE [address] [place] [address] Jessi Dueñas MD [address] [place] [address] documented as of this encounter Visit Diagnoses Not on filedocumented in this encounter Additional Health Concerns Assessment Noted Time PHQ-9 Depression Total Score: 8 09/19/19 24 11:07 AM EDT documented as of this encounter Care Teams Registration Manager Relationship Specialty Start Date End Date Jessi Dueñas MD 230 [place] [address] PCP - General Family Medicine 11/24/20 Mikayla Bhagat Patient NavigatorTelevision Maintenance Man 05/09/23 documented as of this encounter
--- OUTSIDE RECORDS SUMMARY | 2024-05-30 07:27 | XMS_ITS | Encounter Summary ---
Author Organization [employer] [facility] Address [address] [facility] 7 [place] [address] Care Team Providers Care Product Demonstrator Name Role Phone Jessi Dueñas MD Primary Care Provider [phone] Reason for Visit * Reason Onset Date Comments Care Management 05/27/2024 [facility]- chart revi ew Encounter Details Date Type Department Care Team ([facility] st Contact Info) Description 05/27/2024 Telephone [facility] MEDICINE [address] [place] [address] Jessi Dueñas MD [address] [place] [address] Care Management ([facility]- chart review) Social History [...] body pain, neck pain . Specialists include [facility], neurology, rheumatology arthritis treatment center, [facility] orthopedic surgery, sleep medicine, [facility] optometry, ENT, [facility] GI, [facility] Women's. ED visits within the last 12 months include [facility] 05/25. Last appointment in PCP office on 05/25. Next appointment scheduled for 07/26 with PCP. documented in this encounter Plan of Treatment Upcoming Encounters Date Type Department Care Team ([facility] Contact Info) Description 07/26/2024 9:45 AM EDT Office Visit [facility] MEDICINE [address] [place] [address] Jessi Dueñas MD [address] [place] [address] documented as of this encounter Visit Diagnoses Not on filedocumented in this encounter Additional Health Concerns Assessment Noted Time PHQ-9 Depression Total Score: 8 09/19/19 24 11:07 AM EDT documented as of this encounter Care Teams Product Demonstrator Relationship Specialty Start Date End Date Jessi Dueñas MD [address] [place], [place] [phone] PCP - General Family Medicine 11/24/20 Mikayla Bhagat Bag TesterDirectional Bore Operator 05/09/23 documented as of this encounter
--- OUTSIDE RECORDS SUMMARY | 2024-05-30 07:27 | XMS_ITS | Encounter Summary ---
Author Organization [employer] Address [address] [facility] [address]t [place] [address] Care Team Providers Care Coil Rewind Machine Operator Name Role Phone Jessi Dueñas MD Primary Care Provider [phone] Encounter Details Date Type Department Care Team ([facility] st Contact Info) Description 09/22/2023 Orders Only [facility] MEDICINE 230 [place], [place] [phone] Jessi Dueñas MD 230 [place], [place] [phone] Social History Tobacco Use Types Packs/Day Years [...] Office Visit [facility] MEDICINE [address] [place] [address] Jessi Dueñas MD [address] [place] [address] documented as of this encounter Visit Diagnoses Not on filedocumented in this encounter Additional Health Concerns Assessment Noted Time PHQ-9 Depression Total Score: 8 09/19/19 24 11:07 AM EDT documented as of this encounter Care Teams Coil Rewind Machine Operator Relationship Specialty Start Date End Date Jessi Dueñas MD [address] [place] [address] PCP - General Family Medicine 11/24/20 Mikayla Bhagat Compressor MechanicRubber Belt Splicer 05/09/23 documented as of this encounter
--- OUTSIDE RECORDS SUMMARY | 2024-05-30 07:27 | XMS_ITS | Encounter Summary ---
Author Organization [facility] Address 75 [facility] 7t [place] [address] Care Team Providers Care Stitch Bonding Machine Operator Name Role Phone Jessi Dueñas MD Primary Care Provider [phone] Encounter Details Date Type Department Care Team ([facility] st Contact Info) Description 05/18/2023 Telephone [facility] MEDICINE [address] [employer], [place] [phone] Jessi Dueñas MD 230 [place], [place] [phone] Social History Tobacco Use Types Packs/Day Years [...] Lopez RN - 05/18/2023 8:48 AM EST TELEVISION PRODUCTION ASSISTANT referral made to [facility], referral form faxed with confirmation of receipt. documented in this encounter Plan of Treatment Upcoming Encounters Date Type Department Care Team (Late st Contact Info) Description 07/26/2024 9:45 AM EDT Office Visit [facility] MEDICINE [address] [place] [address] Jessi Dueñas MD [address] [place] [address] documented as of this encounter Visit Diagnoses Not on filedocumented in this encounter Additional Health Concerns Assessment Noted Time PHQ-9 Depression Total Score: 20 023 9:49 AM EDT documented as of this encounter Care Teams Stitch Bonding Machine Operator Relationship Specialty Start Date End Date Jessi Dueñas MD 230 [place] [address] PCP - General Family Medicine 11/24/20 Mikayla Bhagat Salt OperatorTraffic Recorder 05/09/23 documented as of this encounter
--- OUTSIDE RECORDS SUMMARY | 2024-05-30 07:27 | XMS_ITS | Encounter Summary ---
Author Organization [facility] Address [address] [facility] 7 [place] [address] Care Team Providers Care Hand Engraver Name Role Phone Jessi Dueñas MD Primary Care Provider [phone] Reason for Visit * Reason Onset Date Comments Other 01/05/2023 Encounter Details Date Type Department Care Team ([facility] st Contact Info) Description 01/05/2023 Telephone [facility] MEDICINE [address] [place] [address] Jessi Dueñas MD [address] [place] [address] Other Social History Tobacco Use Types Packs/Day [...] 12:53 PM EDT TC placed to pt [phone] to inform pt PCP sent Cymbalta to the pharmacy yesterday at [facility] for her pain. Pt reports she called [facility] pharmacy today and they told her that they did not receive the script. RN placed pt on hold and called [facility] pharmacy who confirmed they did receive [...] rheumatology referral d/t [facility] tx[facility] not speaking ghanaian. Pt was informed PCP has placed new rheumatology referral for [facility] yesterday. Pt verbalized understanding. Pt to f/u PRN. * Telephone Encounter - Divya Frank - 01/05/2023 11:51 AM EDT Tc from pt states PCP advised her she will send a script for pain on 01/04 appointment but pt never received medication. Please contact pt at [phone] (Comoran) documented in this encounter Plan of Treatment Upcoming Encounters Date Type Department Care Team (Late st Contact Info) Description 07/26/2024 9:45 AM EDT Office Visit [facility] MEDICINE [address] [place] [address] Jessi Dueñas MD [address] [place] [address] documented as of this encounter Visit Diagnoses Not on filedocumented in this encounter Additional Health Concerns Assessment Noted Time PHQ-9 Depression Total Score: 20 023 9:49 AM EDT documented as of this encounter Care Teams Hand Engraver Relationship Specialty Start Date End Date Jessi Dueñas MD [address] [place] [address] PCP - General Family Medicine 11/24/20 Mikayla Bhagat Energy TechnicianAppliance Assembler 05/09/23 documented as of this encounter
--- OUTSIDE RECORDS SUMMARY | 2024-05-30 07:27 | XMS_ITS | Encounter Summary ---
Author Organization [employer] Address [address] [facility] 7t [place] [address] Care Team Providers Care Water Use Inspector Name Role Phone Jessi Dueñas MD Primary Care Provider [phone] Encounter Details Date Type Department Care Team ([facility] st Contact Info) Description 01/11/2023 Orders Only [facility] MEDICINE [address] [place], [place] [phone] Jessi Dueñas MD [address] [place], [place] [phone] Chronic pain of both knees (Primary Dx) [...] Description 07/26/2024 9:45 AM EDT Office Visit [facility] [address] [place] [address] Jessi Dueñas MD 230 [place] [address] documented as of this encounter Visit Diagnoses Diagnosis Chronic pain of both knees- Primary documented in this encounter Additional Health Concerns Assessment Noted Time PHQ-9 Depression Total Score: 20 023 9:49 AM EDT documented as of this encounter Care Teams Water Use Inspector Relationship Specialty Start Date End Date Jessi Dueñas MD [address] [place] [address] PCP - General Family Medicine 11/24/20 Mikayla Bhagat Dog BeauticianSyrup Maker 05/09/23 documented as of this encounter
--- OUTSIDE RECORDS SUMMARY | 2024-05-30 07:27 | XMS_ITS | Encounter Summary ---
Author Organization [facility] Address [address] [facility] 7 [place] [address] Care Team Providers Care Executor Of Estate Name Role Phone Jessi Dueñas MD Primary Care Provider [phone] Reason for Visit * Reason Comments Care Coordination C3 -SERGE edwards telephone call outreach Encounter Details Date Type Department Care Team (Latest Contact Info) Description 05/27/2024 Patient Outreach [facility] MEDICINE [address] [place] [address] Jessi Dueñas MD [address] [place] [address] Care Coordination (C3 TYRA-SERGE Doshi telephone call [...] call to patient introducing herself from [facility] CM Department, in regards to offering services. Patient's name and was confirmed. Patient agrees toparticipate in program. Appt. for initial assessment scheduled for 05/31/24 @ 10:30AM. CHW reinforced direct contact information or CM for any additional questions or concerns and extended clinic hours on Mondays and Wednesdays, and Walk-In Urgent Care Located in [facility]. Patient provided with after-hours line for [facility], , which offer night time triageservice and option to transfer to quality assurance monitor final provider if needed. Patient verbalizes understanding, and able to repeat back to conventional underwriter. documented in this encounter Plan of Treatment Upcoming Encounters Date Type Department Care Team (Late st Contact Info) Description 07/26/2024 9:45 AM EDT Office Visit [facility] MEDICINE [address] [place] [address] Jessi Dueñas MD [address] [place] [address] documented as of this encounter Visit Diagnoses Not on filedocumented in this encounter Additional Health Concerns Assessment Noted Time PHQ-9 Depression Total Score: 8 09/19/19 24 11:07 AM EDT documented as of this encounter Care Teams Executor Of Estate Relationship Specialty Start Date End Date Jessi Dueñas MD [address] [place] [address] PCP - General Family Medicine 11/24/20 Mikayla Bhagat Transit DriverHealthcare Technician 05/09/23 documented as of this encounter
== END 2024-05-30 07:24 | disposition home or self-care (01) ==
LOC: HO.MRI 07:23
PROVIDERS: PCP General Practice; Visit Provider Nurse Practitioner Family
DX: R10.9 Unspecified abdominal pain (principal); R11.2 Nausea with vomiting, unspecified; R63.4 Abnormal weight loss
CPT/HCPCS: 74181

== ENCOUNTER → 2024-05-30 07:29 | Outpatient (BNV) | payer MEDICAID, SELFPAY | PROVIDERS: PCP General Practice; Visit Provider Radiology Diagnostic Radiology | DX: R63.4 Abnormal weight loss (principal); R10.9 Unspecified abdominal pain; R11.2 Nausea with vomiting, unspecified | CPT/HCPCS: 74181 ==

== ENCOUNTER 2024-06-14 13:58 | Outpatient (AMB) | payer MEDICAID, SELFPAY ==
--- NOTE | 2024-06-14 14:02 | A.OFFVIS_ITS ---
Vital Signs 06/14/24 14:04 Height 5 ft 7 in Weight 123 lb 7.342 oz BMI 19.3 BP 110/68 Blood Pressure Location Rt brachial Position Sitting Pulse 90 Pulse Source Pulse Oximeter Pulse Oximetry (%) 97 Oxygen Delivery Method Room Air Intake Visit Reasons: Follow up ER/ July's PT Intake Note: ESTABLISHED PATIENT for mgmt of GERD, abd pain, and diarrhea. Seen in ED for sx. Review MRI results. Chief Complaint; Pt reports sx have greatly improved since being seen at the emergency room. Pt is of understanding currently that MRI and labs came back normal. No questions regarding those results at this time. Pt still has questions regarding her letter of medical necessity for her condition. Originally advised that PCP would have to fulfill this request. Wheat Inspector Required: Yes Wheat Inspector Services: Wheat Inspector Present Wheat Inspector Name: [facility] Harmony Petersen [id number] Information Interpreted: clinical only Accompanied by: Family/Other Allergies cephalexin [From Keflex] Allergy (Intermediate, Verified 06/14/24 14:02) Eye Swelling morphine Allergy (Intermediate, Verified 06/14/24 14:02) Itching shellfish derived [SHELLFISH DERIVED] Allergy (Intermediate, Verified 06/14/24 14:02) swelling HPI HPI Follow up ER/ s PT: Details: LAST VISIT Abdominal pain Nausea and vomiting Weight loss, abnormal Postprandial abdominal bloating Postprandial epigastric pain Constipation GERD (gastroesophageal reflux disease) Abdominal bloating Irritable bowel syndrome with diarrhea Plan Will check lipase 2 rule out chronic pancreatitis, hepatitis a CBC, lipase, vitamin-D. Thyroid study and vitamin B12, folate and liver panel. Will send patient for MRI of abdomen, MRCP to determine pain. Patient was encouraged to start taking fiber with pre and probiotics 1-2 chewables daily. She will take sucralfate at bedtime. We will give her senna at night time if she will feel constipated she can use it as needed. Currently patient is having diarrhea she might just need at better fiber to help her bulk her stool. Change PPI to Nexium in the morning. Avoid dietary triggers and late night snacking. Staying upright for minimum 3 hours after meals discussed with patient. Patient will return in 4 weeks to re-evaluate. She might not have completed the MRI yet, however we will still keep her appointment. Patient is agreeable to current plan of care and verbalizes understanding of instructions. She was given the opportunity to ask questions and all questions answered. ? Thank you for allowing me to participate in her care Orders Orders Hepatitis A,B,C Profile 05/17/24 R79.89 Lipase 05/17/24 R10.9 Vitamin D 25-OH (D2 and D3) 05/17/24 E55.9 MRCP 05/17/24 R10.9, R11.2, R63.4 HIV Ab/Ag 05/17/24 R79.89 TSH reflex Free T4 05/17/24 K59.00 Vitamin B12 and Folate 05/17/24 R19.7 Liver Panel 05/17/24 R74.01 Medications New sucralfate 10 mL PO BEDTIME 400 mL 3RF K21.9 sennosides (Natural Senna Laxative) 17.2 mg (2 x 8.6 mg) PO BEDTIME 60 tabs 3RF constipation K59.00 esomeprazole magnesium (Nexium) 40 mg PO DAILY 30 caps 5RF K21.9 Discontinued dicyclomine Discontinued Reason: Doctor's Order 40 mg (2 x 20 mg) PO QID 30 days 240 tabs 3RF cholestyramine (with sugar) 4 gram Discontinued Reason: Doctor's Order 4 grams PO BID 60 packets 3RF K58.0 pantoprazole Discontinued Reason: Doctor's Order 40 mg PO BID 60 tabs 6RF K21.9 ED VISIT 05/25/2024 MDM Narrative: my interpretation of labs: hematology at baseline,, no significant abnormality in patient's chemistry, normal LFTs, TSH was checked 1 week ago, within normal limits, hCG negative no obvious signs of dehydration. Reviewed patient's pathology report from a year ago, patient had upper and lower endoscopies, no significant abnormality in patient's pathology reports. Patient states that she is due for a colonoscopy this year after having a prolonged conversation with the patient and her significant other. Overall seems that patient has severe depression. Patient is not SI or HI. Patient states that she already has a therapist. We discussed the possibility of talking with her primary care physician about starting a medicati on such as mirtazapine to help with the depression and stimulate appetite. I also discussed with the patient that at this time, they will not be any IV vitamin infusions, not indicated. Patient will be given IV fluids, then discharged. patient will follow-up with her crop insurance claims adjuster TODAY'S VISIT Patient is here today requested visit follow-up after seen in the ED. Patient was seen on in the ED with nausea, vomiting and diarrhea. Patient reports abdominal bloating and cramping was so severe she was only on able to drink water. Patient was seen in her PCP's office and was sent in the ambulance to the ER for evaluation. Patient had blood work done and no anemia, no leukocyto sis. Reviewed ED physician's notes and labs. Patient was sent by me for MRCP which came back normal. Vitamin levels normal. Patient here today talking about getting a note that she can stay inside her home while pesticide company will come and treat for pesticides. Patient states that she is unable to leave the house for 2 hours as she is afraid that she will have diarrhea. Patient states that she is unable to stay at any once house. We have had long discussion about the danger of her staying inside the house awhile the apartment gets fumigated not just for her about also for her daughter. Patient reports that since she started taking Citrucel she is doing better and has not had as many explosive diarrhea. Patient also is very anxious and admits that sometimes when she hears a bad news or when she is afraid that she is going to have diarrhea she tends to work herself up. She is going to the therapist and seeing someone at this time. Patient reports that she does have a good appetite, feels better with the Nexium. Occasionally though however she still have acid reflux that is coming up all the way to her throat. Patient denies melena, hematochezia, unintentional weight loss in the past few months, however as mentioned previously patient has lost significant amount of weight in the past couple years. Patient way the same a year ago, however in [address] 163 [address] Her symptoms of diarrhea nausea vomiting have been going on for quite some time now. [facility] Medical History Diarrhea C. difficile colitis Asthma GERD (gastroesophageal reflux disease) Bipolar disorder Anxiety and depression Constipation Diarrhea Surgical History History of esophagogastroduodenoscopy (EGD) H/O colonoscopy History of tubal ligation History of section Family History Family/Other Cancer Other Family history of arthritis Social History Alcohol intake: never Patient Tobacco Use Status: Former Tobacco user Tobacco use type: Cigarette Substance Use Type: Marijuana Female Reproductive History Menstrual Age of Menarche: 17 Results Reviewed Results Reviewed: MRCP FINDINGS: There is no significant signal loss within the liver on opposed phase imaging to suggest steatosis. There is no intrahepatic biliary ductal dilatation. The common bile duct is normal in caliber. No intraluminal filling defects are identified within the common bile duct to suggest choledocholithiasis. No liver mass is identified, although evaluation is limited by lack of intravenous contrast material. The gallbladder, spleen, and pancreas are unremarkable. The pancreatic duct is normal in caliber. The adrenals and kidneys are unremarkable. No retroperitoneal lymphadenopathy or ascites is identified in the upper abdomen. The visualized bones demonstrate normal signal intensity. MR/MR MRCP IMPRESSION: Unremarkable MRCP. Laboratory Tests 05/17/24 09:40 Total Bilirubin 0.5 Direct Bilirubin 0.2 AST 26 ALT 25 Alkaline Phosphatase 55 Lipase 15 Vitamin B12 474 25-OH Vitamin D Total 31 Folate 15.2 Assessment & Plan Assessment & Plan (1) Abdominal pain: Code(s): R10.9 - Unspecified abdominal pain Category: Medical Qualifiers: Abdominal location: generalized Qualified Code(s): R10.84 - Generalized abdominal pain (2) Nausea and vomiting: Code(s): R11.2 - Nausea with vomiting, unspecified Category: Medical Qualifiers: Vomiting type: unspecified Qualified Code(s): R11.2 - Nausea with vomiting, unspecified (3) Weight loss, abnormal: Code(s): R63.4 - Abnormal weight loss Category: Medical (4) GERD (gastroesophageal reflux disease): Code(s): K21.9 - Gastro-esophageal reflux disease without esophagitis Category: Medical Qualifiers: Esophagitis presence: esophagitis presence not specified Qualified Code(s): K21.9 - Gastro-esophageal reflux disease without esophagitis (5) Abdominal bloating: Code(s): R14.0 - Abdominal distension (gaseous) Category: Medical (6) Irritable bowel syndrome with diarrhea: Code(s): K58.0 - Irritable bowel syndrome with diarrhea Category: Medical (7) Postprandial abdominal bloating: Code(s): R14.0 - Abdominal distension (gaseous) (8) Postprandial epigastric pain: Code(s): R10.13 - Epigastric pain (9) Constipation: Code(s): K59.00 - Constipation, unspecified Qualifiers: Constipation type: slow transit constipation Qualified Code(s): K59.01 - Slow transit constipation Plan Patient will continue taking Nexium every morning half an hour before breakfast. She was encouraged to take extra Citrucel at noon time to help her with bulking stools. States that significant different since she started taking it. Diarrhea not as often as in the past. Continue avoiding dietary triggers and late night snacking. Staying upright for minimum 3 hours after meals discussed with patient. Patient can take famotidine at bedtime. If patient will become constipated she is to use senna on as-needed basis if no BM in 1-2 days. Patient was encouraged to drink high-protein shakes to help with weight gain. We will not start her on mirtazapine as she is on imipramine and if taking together can cause potentially serious side effects. However if patient will continue having low appetite we will stop imipramine and start her on mirtazapine. Patient will follow-up in 2-1/2 weeks. She will call our office if she will have any worsening GI symptoms. She is agreeable to this plan and verbalizes understanding of instructions. She was given the opportunity to ask questions and all questions answered. Thank you for allowing me to participate her care Orders: Orders [place] upper GI w Ba Swallow Today K21.9 - Gastro-esophageal reflux disease without esophagitis Medications: Changed From methylcellulose (laxative) (Citrucel) 500 mg PO DAILY 30 tabs 2RF K59.00 - Constipation, unspecified To methylcellulose (laxative) (Citrucel) 500 mg PO BID 90 tabs 2RF K59.00 - Constipation, unspecified Coding Level of Care Code Est Pt Level 4 (09370) Complex EM visit Add On G2211 Diagnoses Generalized abdominal pain R10.84 Abdominal location: generalized Nausea and vomiting, unspecified vomiting type R11.2 Vomiting type: unspecified Weight loss, abnormal R63.4 Gastroesophageal reflux disease, unspecified whether esophagitis present K21.9 Esophagitis presence: esophagitis presence not specified Abdominal bloating R14.0 Irritable bowel syndrome with diarrhea K58.0 Postprandial abdominal bloating R14.0 Postprandial epigastric pain R10.13 Slow transit constipation K59.01 Constipation type: slow transit constipation Time Spent (min) 40 Comment 25 minutes spent with patient and additional 15 minutes spent reviewing her records
[2024-06-14 14:04] VITALS: BP 110/68; PULSE 90; O2SAT 97; BMI 19.3
--- OUTSIDE RECORDS SUMMARY | 2024-06-14 15:42 | XMS_ITS | Encounter Summary ---
Author Organization [employer] Address [address] [facility] [address] 7t [place] [address] Care Team Providers Care Neurourologist Name Role Phone Jessi Dueñas MD Primary Care Provider [phone] Encounter Details Date Type Department Care Team ([facility] st Contact Info) Description 02/08/2023 Telephone [facility] MEDICINE [address] [place], [place] [phone] Jessi Dueñas MD [address] [place], [place] [phone] Social History Tobacco Use Types Packs/Day Years [...] 9:45 AM EDT Office Visit [facility] MEDICINE [address] [place] [address] Jessi Dueñas MD [address] [place] [address] documented as of this encounter Visit Diagnoses Not on filedocumented in this encounter Additional Health Concerns Assessment Noted Time PHQ-9 Depression Total Score: 20 023 9:49 AM EDT documented as of this encounter Care Teams Neurourologist Relationship Specialty Start Date End Date Jessi Dueñas MD [address] [place] [address] PCP - General Family Medicine 11/24/20 Mikayla Bhagat Parole SupervisorDirector Of Psychiatry 05/09/23 documented as of this encounter
--- OUTSIDE RECORDS SUMMARY | 2024-06-14 15:42 | XMS_ITS | Encounter Summary ---
Author Organization [facility] Address [address] [facility] 7t [place] [address] Care Team Providers Care Addiction Counselor Name Role Phone Jessi Dueñas MD Primary Care Provider [phone] Encounter Details Date Type Department Care Team (Late st Contact Info) Description 10/12/2022 Orders Only [facility] MEDICINE [address] [place] [address] Jessi Dueñas MD [address] [place] [address] [phone] Acute bilateral low back pain, unspecified whether [...] Description 07/26/2024 9:45 AM EDT Office Visit [facility] MEDICINE [address] [place] [address] [phone] Jessi Dueñas MD [address] [place] [address] documented as of this encounter Visit Diagnoses Diagnosis Acute bilateral low back pain, unspecified whether sciatica present- Primary Hematoma of left knee region Sprain of left medial ankle joint, subsequent encounter documented in this encounter Additional Health Concerns Assessment Noted Time PHQ-9 Depression Total Score: 19 023 2:59 PM EST documented as of this encounter Care Teams Addiction Counselor Relationship Specialty Start Date End Date Jessi Dueñas MD [address] [place] [address] PCP - General Family Medicine 11/24/20 Mikayla Bhagat Care Transition ManagerHealth Education Director 05/09/23 documented as of this encounter
--- OUTSIDE RECORDS SUMMARY | 2024-06-14 15:42 | XMS_ITS | Encounter Summary ---
Author Organization [employer] Address [address] [facility] 7t [place] [address] Care Team Providers Care Steno Pool Supervisor Name Role Phone Jessi Dueñas MD Primary Care Provider [phone] Reason for Referral * Consultation (Routine) - Closed Specialty Diagnoses / Procedures Referred By Contac t Referred To Contact Physical Therapy Diagnoses Acute bilateral low back pain without sciatica Chronic pain of both knees Bilateral hand pain Jessi Dueñas MD [address] [place] [address] Phone: tel: fax: [facility] [address] [facility] [address] [place], [place] Phone: tel: fax: Referral ID Status Reason Start Date Expiration Date V isits Requested Visits Authorized [id number] Closed Specialty Services Required 04/17/2024 04/17/2025 20 20 Encounter Details Date Type Department Care Team (Late st Contact Info) Description 04/17/2024 Orders Only [facility] MEDICINE [address] [place] [address] [phone] Jessi Dueñas MD [address] [place], [place] [phone] Acute bilateral low back pain without sciatica [...] 07/26/2024 9:45 AM EDT Office Visit [facility] MEDICINE [address] [place] [address] Jessi Dueñas MD [address] [place] [address] Scheduled Referrals Name Type Priority Associated Diagnoses [...] documented as of this encounter Care Teams Steno Pool Supervisor Relationship Specialty Start Date End Date Jessi Dueñas MD [address] [place] [address] PCP - General Family Medicine 11/24/20 Mikayla Bhagat Mill StencilerCement Or Concrete Finishing Supervisor 05/09/23 documented as of this encounter
--- OUTSIDE RECORDS SUMMARY | 2024-06-14 15:42 | XMS_ITS | Encounter Summary ---
Author Organization [employer] Address [address] [facility] 7t [place] [address] Care Team Providers Care Process Area Supervisor Name Role Phone Jessi Dueñas MD Primary Care Provider [phone] Encounter Details Date Type Department Care Team [...] 9:45 AM EDT Office Visit [facility] MEDICINE 230 [place], [place] [phone] Jessi Dueñas MD 230 [place] [address] documented as of this encounter Visit Diagnoses Not on filedocumented in this encounter Additional Health Concerns Assessment Noted Time PHQ-9 Depression Total Score: 8 09/19/19 24 11:07 AM EDT documented as of this encounter Care Teams Process Area Supervisor Relationship Specialty Start Date End Date Jessi Dueñas MD [address] [place] [address] [phone] PCP - General Family Medicine 11/24/20 Mikayla Bhagat Logistics Planning EngineerCommercial Retoucher 05/09/23 documented as of this encounter
--- OUTSIDE RECORDS SUMMARY | 2024-06-14 15:42 | XMS_ITS | Encounter Summary ---
Author Organization [facility] Address [address] [facility] 7 [place] [address] Care Team Providers Care Pickling Drum Operator Name Role Phone Jessi Dueñas MD Primary Care Provider [phone] Reason for Visit * Reason Onset Date Comments Medication Question 06/12/2024 Med Refill 06/12/2024 Encounter Details Date Type Department Care Team ([facility] st Contact Info) Description 06/12/2024 Telephone [facility] MEDICINE [address] [place] [address] Jessi Dueñas MD [address] [place], [place] [phone] Medication Question; Med Refill Social History Tobacco Use Types [...] encounter Miscellaneous Notes * Telephone Encounter - Lindsey Galvez RN - 06/14/2024 2:13 PM EDT TC placed to pt and LVM to call back the office to inform that PCP sent a refill of the ropinirole 4 MG to the pt pharmacy. * Telephone Encounter - Lindsey Galvez RN - 06/14/2024 10:52 AM EDT Pt and IS ANALYST presented to the [facility] front desk attendant requesting an early refill on the prescribed Ropinirole 4 MG medication. IS ANALYST is aware of the caution that ws given by PCP to not take more than one pill a night. IS ANALYST confirms that he now knows the maximum dose is 4 mg daily. IS ANALYST just needs an early refill to get the pt through the next week as there are only four pills left. Pt would like to continue on 4 MG once daily and not 2 2 MG tabs as suggested by PCP. Pt advised this will be sent high priority to provider for review and advisement. * Telephone Encounter - Iona Salinas RN - 06/12/2024 2:59 PM EDT Incoming phone call from pt and pt's IS ANALYST haris Carrasco gave verbal consent to speak with IS ANALYST. Advised pt that per PCP, she can only take max 4mg (1 pill) of ropinirole per day. Advised pt that PCP could prescribe 2mg tablets if she prefers to take 2 tablets, however pt declined. Pt/IS ANALYST stated she had only been taking 2 pills because the doctor said it's okay. Again advised per PCP that it is not safe to take more than 4mg daily. Advised that sleep study did not show RLS, however pt states that Ididn't have it that night but I have it other nights. Reviewed that PCP recommends for pt to reachout to the provider who prescribes Seroquel to ask about lowering dose because that may be contributing to jerky movements. Pt and IS ANALYST verbalized understanding, no further questions. * Telephone Encounter - Iona Salinas RN - 06/12/2024 2:25 PM EDT Telephone call returned to pt to advise of below message. No answer, left voicemail to call back [facility]. Will task to call again. -- Dr Dueñas Please do not take more than one pill a night. Maximum dose of ropinirole is 4mg daily. I can prescribe 2mg tablets if she wants to try to have a second dose available. Her sleep study did not show restless leg syndrome, so it may be that the medication is not appropriate for what is causing her tojerk her legs. I have suggested in the past that she speak to her prescriber about lowering her dose of Seroquel, as this medication can cause jerking movements. * Telephone Encounter - Iona Salinas RN - 06/12/2024 12:46 PM EDT Telephone call to pt who gave verbal consent to speak with pt's Danilo COELHO who translated. They arelooking for PCP's input on ropinirole prescription (frequency). Per pt/IS ANALYST, pt takes 1 pill at around 10pm when she goes to bed and she already has restless legs , then report at night she still hasrestless legs & sometimes takes a 2nd pill in the night. Per pt, she has been taking 2 pills since beginning of June. IS ANALYST states he is in the home 24/10 and watches the pt's legs kicking and twitching all night. Pt/IS ANALYST states that the doctor told us it's okay to take more than one but we're going to run out soon. Per chart, last Rx written on 03/26 for 90 days. Will send to PCP to advise on plan of care. * Telephone Encounter - Jose Luis Mathews - 06/12/2024 9:42 AM EDT Tc from pt requesting to see if its possible to get a couple more pills for med rOPINIRole (Requip)4 MG tablet. Pt takes multiple a day due to only taking one is not helping her. Pt would like to see if she could be prescribed more Pills. Contact pt at [phone] documented in this encounter Plan of Treatment Upcoming Encounters Date Type Department Care Team (Late st Contact Info) Description 07/26/2024 9:45 AM EDT Office Visit [facility] MED[facility]INE [address] [place] [address] Jessi Dueñas MD [address] [place] [address] documented as of this encounter Visit Diagnoses Not on filedocumented in this encounter Additional Health Concerns Assessment Noted Time PHQ-9 Depression Total Score: 8 09/19/19 24 11:07 AM EDT documented as of this encounter Care Teams Pickling Drum Operator Relationship Specialty Start Date End Date Jessi Dueñas MD [address] [place] [phone] PCP - General Family Medicine 11/24/20 Mikayla Bhagat Loss Control TechnicianGun Stock Checker 05/09/23 documented as of this encounter
--- OUTSIDE RECORDS SUMMARY | 2024-06-14 15:42 | XMS_ITS | Encounter Summary ---
Author Organization [employer] Address [address] [facility] 7 [place] [address] Care Team Providers Care Optometry Teacher Name Role Phone Jessi Dueñas MD Primary Care Provider [phone] Reason for Visit * Reason Comments Transition Of Care (Tcm) ERRORr Encounter Details Date Type Department Care Team ([facility] st Contact Info) Description 05/28/2024 Patient Outreach [facility] MEDICINE [address] [place] [address] Jessi Dueñas MD [address] [place] [address] Transition Of Care (Tcm) (ERRORr) Social History [...] Description 07/26/2024 9:45 AM EDT Office Visit [facility] MEDICINE [address] [place] [address] Jessi Dueñas MD [address] [place] [address] documented as of this encounter Visit Diagnoses Not on filedocumented in this encounter Additional Health Concerns Assessment Noted Time PHQ-9 Depression Total Score: 8 09/19/19 24 11:07 AM EDT documented as of this encounter Care Teams Optometry Teacher Relationship Specialty Start Date End Date Jessi Dueñas MD [address] [place] [address] PCP - General Family Medicine 11/24/20 Mikayla Bhagat J2Ee Application DeveloperAdult Health Clinical Nurse Specialist 05/09/23 documented as of this encounter
--- OUTSIDE RECORDS SUMMARY | 2024-06-14 15:42 | XMS_ITS | Encounter Summary ---
Author Organization [employer] Address [address] [facility] [address] 7[address] [place] [address] Care Team Providers Care Drawbridge Tender Name Role Phone Jessi Dueñas MD Primary Care Provider [phone] Encounter Details Date Type Department Care Team (Late st Contact Info) Description 05/30/2024 Orders Only [facility] External Provider, [facility] Social History Tobacco Use Types Packs/Day Years [...] t he electric, gas, oil or water [employer] threatened to shut off services in your [...] 9:45 AM EDT Office Visit [facility] MEDICINE [address] [place] [address] Jessi Dueñas MD [address] [place] [address] documented as of this encounter Procedures Procedure Name Priority Date/Time Associated Diagnosis Comments MR MRCP Routine 05/30/2024 7:29 AM EST documented in this encounter Results * MR MRCP (05/30/2024 7:29 AM EST) Anatomical Region Laterality Modality Lower Extremities Left Magnetic Reson ance 05/30/2024 7:29 AM EST Narrative 05/30/2024 8:24 AM EST ? [facility] ?[address] ?[place] [address] ? Magnetic Resonance Report ? Signed ? Patient: Kera Armstrong ?MR#: MM ?? [id number] ? : 1980 ?Acct:[id number] ? Age/Sex: 43 / F ?ADM Date: 02/27/25 ? Loc: HO.MRI ? Attending Dr: Aslhey AZEVEDO ? Ordering Physician: Ashley Duncan ?? Date of Service: 05/30/24 ?? Procedure(s): MR MRCP ?? Accession Number(s): [id number] ? cc: Jessi Dueñas; Ashley Duncan ? EXAMINATION: ??MRCP ? HISTORY: R63.4 - Abnormal weight loss ? COMPARISON: ??Correlation is made with an unenhanced CT of the abdomen ?? dated 03/15/2022. ? TECHNIQUE: Axial in and out of phase T1-weighted gradient echo and ?? axial and coronal haste T2 with fat saturation images were obtained ?? through the abdomen. 3D MRCP Reconstructed images and thick slab ?? imaging of the biliary tree were obtained. ? FINDINGS: ??There is no significant signal loss within the liver on ?? opposed phase imaging to suggest steatosis. There is no intrahepatic ?? biliary ductal dilatation. The common bile duct is normal in caliber. ?? No intraluminal filling defects are identified within the common bile ?? duct to suggest choledocholithiasis. No liver mass is identified, ?? although evaluation is limited by lack of intravenous contrast material. ? The gallbladder, spleen, and pancreas are unremarkable. The pancreatic ?? duct is normal in caliber. The adrenals and kidneys are unremarkable. ?? No retroperitoneal lymphadenopathy or ascites is identified in the ?? upper abdomen. The visualized bones demonstrate normal signal intensity. ? MR/MR MRCP ?? IMPRESSION: ? Unremarkable MRCP. ? Electronically signed by: ??Everett Rich MD ??05/30/2024 08:21 AM EST ?? RP ? Dictated By: ?Everett Rich MD ? Signed By: ?<Electronically signed by Everett Rich MD in OV> ?05/30/24 08 ? DD/ 8 ? TD/TT: 05/30/24 0805 ? Food Bagging Machine Operator: ? Procedure Note Eloy Benoit - 05/30/[address] [address] Magnetic Resonance Report Signed Patient: Kera Armstrong#: MM [id number] : 1980Acct:[id number] Age/Sex: 43 / FADM Date: 05/30/24 Loc: HO.MRI Attending Dr: Ashley Duncan [facility] Ordering Physician: Ashley Duncan Date of Service: 05/30/24 Procedure(s): MR MRCP Accession Number(s): [id number] cc: Jessi Dueñas; Ashley Duncan EXAMINATION: MRCP HISTORY: R63.4 - Abnormal weight loss COMPARISON: Correlation is made with an unenhanced CT of the abdomen dated 03/15/2022. TECHNIQUE: Axial in and out of phase T1-weighted gradient echo and axial and coronal haste T2 with fat saturation images were obtained through the abdomen. 3D MRCP Reconstructed images and thick slab imaging of the biliary tree were obtained. FINDINGS: There is no significant signal loss within the liver on opposed phase imaging to suggest steatosis. There is no intrahepatic biliary ductal dilatation. The common bile duct is normal in caliber. No intraluminal filling defects are identified within the common bile duct to suggest choledocholithiasis. No liver mass is identified, although evaluation is limited by lack of intravenous contrast material. The gallbladder, spleen, and pancreas are unremarkable. The pancreatic duct is normal in caliber. The adrenals and kidneys are unremarkable. No retroperitoneal lymphadenopathy or ascites is identified in the upper abdomen. The visualized bones demonstrate normal signal intensity. MR/MR MRCP IMPRESSION: Unremarkable MRCP. Electronically signed by: Everett Rich MD 05/30/2024 08:21 AM [facility] Dictated By: Everett Rich MD Signed By: <Electronically signed by Everett Rich MD in OV> 05/30/24 0821 DD/ 0729 TD/TT: 05/30/24 0805 Food Bagging Machine Operator: [facility] External Provider IMG MRI PROCEDURES Final Result documented in this encounter Visit Diagnoses Not on filedocumented in this encounter Additional Health Concerns Assessment Noted Time PHQ-9 Depression Total Score: 8 09/19/19 24 11:07 AM EDT documented as of this encounter Care Teams Drawbridge Tender Relationship Specialty Start Date End Date Jessi Dueñas MD [address] [place] [address] PCP - General Family Medicine 11/24/20 Mikayla Bhagat Radio PersonalityStringed Instrument Tuner 05/09/23 documented as of this encounter
--- OUTSIDE RECORDS SUMMARY | 2024-06-14 15:42 | XMS_ITS | Encounter Summary ---
Author Organization [employer] Address [address] [facility] 7t [place] [address] Care Team Providers Care Kineseologist Name Role Phone Jessi Dueñas MD Primary Care Provider [phone] Encounter Details Date Type Department Care Team [...] 07/26/2024 9:45 AM EDT Office Visit [facility] MEDICINE [address] [place], [place] [phone] Jessi Dueñas MD [address] [place], [place] [phone] documented as of this encounter Procedures Procedure [...] EST) Vitamin D, 25-OH, D2 <4 ng/mL [facility] Comment:This test was develo ped and its analytical performancecharacteristics have been determined by [employer] [place], [place]. It hasnot been cleared or approved by the .S. Food and DrugAdministration. This assay has been validated pursuantto the CLIA regulations and is used for clinicalpurposes.THIS TEST WAS PERFORMED AT:[id number] [place] [address]NMRJZVJKHANG MADRID MD,PHD Vitamin D, 25-OH, D3 31 ng/mL [facility] Comment:This test was develo ped and its analytical performancecharacteristics have been determined by [employer] [place], [place]. It hasnot been cleared or approved by the U.S. Food and DrugAdministration. This assay has been validated pursuantto the CLIA regulations and is used for clinicalpurposes. Vitamin D, 25-OH, Total 31 30 - 100 ng/mL [facility] Comment:Vitamin D, 25-Hydrox y reports [...] = 30 ng/mL.For additional information, please refer tohttp://[email or web address]ent/faq/WXQ886(This link is being provided for informational/educational purposes only.) 05/17/2024 9:40 AM EST 05/17/2024 9:40 AM EST us Generic External Data Provider LAB BLOOD ORDERAB LES Final Result [facility] [address] [place] [phone] * Vitamin B12 (Cobalamin) and Folate Panel, Serum (05/17/2024 9:40 AM EST) Vitamin B12 474 200 - 900 pg/mL [facility] Comment:NORMAL 200-900 PG/ML INDETERMINATE 160-199 PG/ML DEFICIENT < 160 PG/ML Folate 15.2 > or = 4.0 ng/mL [facility] Comment:Reference Values:> o r = 4.0 ng/mL< 4.0 ng/mL suggests folate deficiency Methotrexate, aminopterin and folinic acid(leucovorin) are chemotherapeutic agents whose molecularstructures are similar to folate; therefore, the Architectfolate assay cannot be used for patients using these drugs. 05/17/2024 9:40 AM EST 05/17/2024 9:40 AM EST us Generic External Data Provider LAB BLOOD ORDERAB LES Final Result [facility] [address] [place] [phone] * HIV-1/2 Antigen and Antibodies, Fourth Generation, with Reflexes (05/17/2024 9:40 AM EST) Pathologist [facility] HIV AB/AG Nonreactive Nonreactive [facility] Comment:HIV-1 p24 Ag and/or HIV-1/HIV-2 Ab not detected.A test result that is nonreactive does not exclude thepossibility of exposure to or infection with HIV-1 and/orHIV-2. Nonreactive results in this assay for individualswith prior exposure to HIV-1 and/or HIV-2 may be due toantigen and antibody levels that are below the limit ofdetection of this assay.The [employer] HIV Ag/Ab Combo assay result andsupplemental assay results should be interpreted inconjunction with the patient's clinical presentation,history and other laboratory results. If the results areinconsistent with clinical evidence, additional testing issuggested to confirm the result. 05/17/2024 9:40 AM EST 05/17/2024 9:40 AM EST us Generic External Data Provider LAB BLOOD ORDERAB LES Final Result Performing Organization Address City/[facility]/ZIP Co de Phone Number [facility] [address] [place] [phone] * Hepatitis Panel, General (05/17/2024 9:40 AM EST) Hepatitis A IgM Nonreactive Nonreactive [facility] Comment:IgM antibodies to AMAYA V not detected; does not exclude earlyacute or recovered HAV infection. ~Hepatitis B Surface Antibody REACTIVE Nonreactive [facility] Comment:REACTIVE: > 11.99 mI U/mL Hepatitis B Core Antibody Nonreactive Nonreactive [facility] Hepatitis C Antibody Nonreactive Nonreactive [facility] Comment:Antibodies to HCV no t detected; does not exclude early acuteHCV infection. Hepatitis B Surface Ag Negative Negative [facility] 05/17/2024 9:40 AM EST 05/17/2024 9:40 AM EST us Generic External Data Provider LAB BLOOD ORDERAB LES Final Result Performing Organization Address City/[facility]/ZIP Co de Phone Number [facility] [address] [place] [phone] * TSH with Reflex to Free T4 (05/17/2024 9:40 AM EST) TSH reflex Free T4 1.12 0.32 - 4.0 uIU/mL [facility] 05/17/2024 9:40 AM EST 05/17/2024 9:40 AM EST us Generic External Data Provider LAB BLOOD ORDERAB LES Final Result Performing Organization Address City/[facility] Co de Phone Number [facility] [address] [place] [phone] * Lipase (05/17/2024 9:40 AM EST) Lipase 15 8 - 78 U/L [facility] 05/17/2024 9:40 AM EST 05/17/2024 9:40 AM EST us Generic External Data Provider LAB BLOOD ORDERAB LES Final Result Performing Organization Address [facility] de Phone Number [facility] [address] [place] [phone] [phone] * Hepatic Function Panel (05/17/2024 9:40 AM EST) Bilirubin, Total 0.5 0.0 - 1.0 mg/dL [facility] Bilirubin, Direct 0.2 0.0 - 0.5 mg/dL [facility] Aspartate Amino Transferase 26 5 - 31 U/L [facility] Alanine Aminotransferase 25 0 - 31 U/L [facility] Total Protein 8.0 6.5 - 8.0 g/dL [facility] Albumin Level 4.6 3.5 - 5.0 g/dL [facility] Alkaline Phosphatase 55 39 - 117 U/L [facility] 05/17/2024 9:40 AM EST 05/17/2024 9:40 AM EST Generic External Data Provider LAB BLOOD ORDERAB LES Final Result Performing Organization Address [facility] Phone Number [facility] [address] [place] [phone] documented in this encounter Visit Diagnoses Not on filedocumented in this encounter Additional Health Concerns Assessment Noted Time PHQ-9 Depression Total Score: 8 09/19/19 24 11:07 AM EDT documented as of this encounter Care Teams Kineseologist Relationship Specialty Start Date End Date Jessi Dueñas MD [address] [place] [phone] PCP - General Family Medicine 11/24/20 Mikayla Bhagat Manager Utilization ManagementYard Stocker 05/09/23 documented as of this encounter
--- OUTSIDE RECORDS SUMMARY | 2024-06-14 15:42 | XMS_ITS | Encounter Summary ---
Author Organization [facility] Address [address] [facility] 7 [place] [address] Care Team Providers Care Merchandising Intern Name Role Phone Jessi Dueñas MD Primary Care Provider [phone] Reason for Visit * Reason Comments Care Coordination C3 -SERGE edwards telephone call outreach Encounter Details Date Type Department Care Team (Latest Contact Info) Description 05/27/2024 Patient Outreach [facility] MEDICINE [address] [place] [address] Jessi Dueñas MD [address] [place] [address] Care Coordination (C3 TYRA-SERGE Doshi telephone call [...] outbound call to patient introducing herself from [facility] CM Department, in regards to offering services. Patient's name and was confirmed. Patient agrees toparticipate in program. Appt. for initial assessment scheduled for 05/31/24 @ 10:30AM. CHW reinforced direct contact information or CM for any additional questions or concerns and extended clinic hours on Mondays and Wednesdays, and Walk-In Urgent Care Located in [facility]. Patient provided with after-hours line for [facility], , which offer night time triageservice and option to transfer to associate relations specialist provider if needed. Patient verbalizes understanding, and able to repeat back to video game script writer. documented in this encounter Plan of Treatment Upcoming Encounters Date Type Department Care Team (Late st Contact Info) Description 07/26/2024 9:45 AM EDT Office Visit [facility] MEDICINE [address] [place] [address] Jessi Dueñas MD [address] [place] [address] documented as of this encounter Visit Diagnoses Not on filedocumented in this encounter Additional Health Concerns Assessment Noted Time PHQ-9 Depression Total Score: 8 09/19/19 24 11:07 AM EDT documented as of this encounter Care Teams Merchandising Intern Relationship Specialty Start Date End Date Jessi Dueñas MD [address] [place] [address] PCP - General Family Medicine 11/24/20 Mikayla Bhagat Information Services ConsultantClinical Psychiatrist 05/09/23 documented as of this encounter
--- OUTSIDE RECORDS SUMMARY | 2024-06-14 15:42 | XMS_ITS | Encounter Summary ---
Author Organization [employer] [facility] Address [address] [facility] 7 [place] [address] Care Team Providers Care Director Of Testing Name Role Phone Jessi Dueñas MD Primary Care Provider [phone] Reason for Visit * Reason Onset Date Comments Referral 12/23/2022 Encounter Details Date Type Department Care Team ([facility] st Contact Info) Description 12/23/2022 Telephone [facility] MEDICINE [address] [place] [phone] Jessi Dueñas MD [address] [place] [address] Referral Social History Tobacco Use Types Packs/Day [...] have interpreters. Any questions, contact pt at [phone] (Romanian) documented in this encounter Plan of Treatment Upcoming Encounters Date Type Department Care Team (Late st Contact Info) Description 07/26/2024 9:45 AM EDT Office Visit [facility] MEDICINE [address] [place] [address] Jessi Dueñas MD [address] [place], [place] [phone] documented as of this encounter Visit Diagnoses Not on filedocumented in this encounter Additional Health Concerns Assessment Noted Time PHQ-9 Depression Total Score: 19 023 2:59 PM EST documented as of this encounter Care Teams Director Of Testing Relationship Specialty Start Date End Date Jessi Dueñas MD [address] [place], [place] [phone] PCP - General Family Medicine 11/24/20 Mikayla Bhagat Music AutographerPower Mule Operator 05/09/23 documented as of this encounter
--- OUTSIDE RECORDS SUMMARY | 2024-06-14 15:42 | XMS_ITS | Encounter Summary ---
Author Organization [id number] Address 75 [facility] 7 [place] [address] Care Team Providers Care Music Minister Name Role Phone Jessi Dueñas MD Primary Care Provider [phone] Reason for Visit * Reason Onset Date Comments Med Refill Letter Request 06/03/2024 The patient requ ested a letter for housing. She states that she is not able to leave her home for more than two hours at a time, due to her medical conditions. She stated that they are charging her a fee, because when the apartment needs to be exterminated or inspected, they are unable to do it because she is unable to leave. I informed her that her provider is unable to write the letter, because she has the option of going to a neighbor or family member's house, while the inspection or extermination i Encounter Details Date Type Department Care Team ([facility] st Contact Info) Description 06/03/2024 Refill [facility] [address] [place], [place] [phone] Jessi Dueñas MD [address] [place], [place] [phone] Fibromyalgia Social History Tobacco Use Types Packs/Day [...] encounter Miscellaneous Notes * Telephone Encounter - Stacie Vanegas [place] - 06/05/2024 10:11 AM EST The patient requested a letter for housing. She states that she is not able to leave her home for more than two hours at a time, due to her medical conditions. She stated that housing is charging joaquin fee, because when the apartment needs to be exterminated or inspected, they are unable to do it because she is unable to leave the premises. I informed her that her provider is unable to write the l catie, because she has the option of going to a neighbor or family member's house, while the inspection or extermination is being done. She stated that she is unable to do that, and requested an appointment with her PCP. She is scheduled for 07/26/24, but would like to be seen sooner. A message was sent to the Red Team, asking for them to contact her with an appointment. documented in this encounter Plan of Treatment Upcoming Encounters Date Type Department Care Team ([facility] st Contact Info) Description 07/26/2024 9:45 AM EDT Office Visit [facility] [address] [place] [address] Jessi Dueñas MD [address] [place] [address] documented as of this encounter Visit Diagnoses Diagnosis Fibromyalgia Unspecified myalgia and myositis documented in this encounter Additional Health Concerns Assessment Noted Time PHQ-9 Depression Total Score: 8 09/19/19 24 11:07 AM EDT documented as of this encounter Care Teams Music Minister Relationship Specialty Start Date End Date Jessi Dueñas MD [address] [place] [address] PCP - General Family Medicine 11/24/20 Mikayla Bhagat KnobberAdvertising Project Manager 05/09/23 documented as of this encounter
--- OUTSIDE RECORDS SUMMARY | 2024-06-14 15:42 | XMS_ITS | Encounter Summary ---
Author Organization [employer] [facility] Address [address] [facility] 7 [place] [address] Care Team Providers Care Quality Control Tech Name Role Phone Jessi Dueñas MD Primary Care Provider Reason for Visit * Reason Comments Care Coordination C3 -SERGE edwards telephone call outreach Encounter Details Date Type Department Care Team (Latest Contact Info) Description 05/30/2024 Patient Outreach [facility] [address] [place] [address] Jessi Dueñas MD [address] [place] [address] Care Coordination (C3 TYRA-SERGE Doshi telephone call [...] Progress Notes * Alma Delia Doshi - 05/30/2024 1:56 PM EST CHW Alma Delia Doshi placed outbound call to patient introducing herself from [facility] CM Department, in regards to remind patient of Adult Complex Care program initial assessment appt for tomorrow 05/31/24 @ 10:30AM via telephone. Patient's name and was confirmed. Patient is aware and confirmed will be available for call and has no barriers on attending call. Patient verbalized understanding and agrees with plan. documented in this encounter Plan of Treatment Upcoming Encounters Date Type Department Care Team (Late st Contact Info) Description 07/26/2024 9:45 AM EDT Office Visit [facility] [address] [place] [address] Jessi Dueñas MD [address] [place] [address] documented as of this encounter Visit Diagnoses Not on filedocumented in this encounter Additional Health Concerns Assessment Noted Time PHQ-9 Depression Total Score: 8 09/19/19 24 11:07 AM EDT documented as of this encounter Care Teams Quality Control Tech Relationship Specialty Start Date End Date Jessi Dueñas MD [address] [place] [address] PCP - General Family Medicine 11/24/20 Mikayla Bhagat Special Agent In ChargeCanvas Shop Laborer 05/09/23 documented as of this encounter
--- OUTSIDE RECORDS SUMMARY | 2024-06-14 15:42 | XMS_ITS | Encounter Summary ---
Author Organization [employer] [facility] Address 75 [facility] 7t [place] [address] Care Team Providers Care Fur Machine Operator Name Role Phone Jessi Dueñas MD Primary Care Provider [phone] Reason for Visit * Reason Onset Date Comments Call Back Request 01/23/2024 Encounter Details Date Type Department Care Team ([facility] Contact Info) Description 01/23/2024 Telephone [facility] [address] [place], [place] [phone] Jessi Dueñas MD [address] [place], [place] [phone] Call Back Request Social History Tobacco Use [...] no scripts sent. Please contact pt at [phone]. (Azeri Speaker) documented in this encounter Plan of Treatment Upcoming Encounters Date Type Department Care Team (Late st Contact Info) Description 07/26/2024 9:45 AM EDT Office Visit [facility] [address] [place] [address] Jessi Dueñas MD [address] [place] [address] documented as of this encounter Visit Diagnoses Not on filedocumented in this encounter Additional Health Concerns Assessment Noted Time PHQ-9 Depression Total Score: 8 09/19/19 24 11:07 AM EDT documented as of this encounter Care Teams Fur Machine Operator Relationship Specialty Start Date End Date Jessi Dueñas MD [address] [place] [address] PCP - General Family Medicine 11/24/20 Mikayla Bhagat Volunteer Patient RepresentativeAssociate Brand Manager 05/09/23 documented as of this encounter
--- OUTSIDE RECORDS SUMMARY | 2024-06-14 15:42 | XMS_ITS | Encounter Summary ---
Author Organization [employer] [facility] Address 75 [facility] 7 [place] [address] Care Team Providers Care Senior Abap Developer Name Role Phone Jessi Dueñas MD Primary Care Provider [phone] Reason for Visit * Reason Onset Date Comments Results 05/23/2023 Encounter Details Date Type Department Care Team ([facility] st Contact Info) Description 05/23/2023 Telephone [facility] [address] [place] [address] Jessi Dueñas MD [address] [place] [address] Results Social History Tobacco Use Types Packs/Day [...] T/C to pt. For below message through [employer] [place] - [id number], pt. Informed regarding normal x-ray result. pt. [...] case of any new or worsening symptoms. [facility] hours are reviewed. Pt. Verbally agreed and understood. * Telephone Encounter - Paco Sylvester - 05/24/2023 3:59 PM EST Tc from pt returning call. Please contact at [phone] * Telephone Encounter - Yumiko Whitaker RN - 05/24/2023 12:47 PM EST Return T/C to pt. For bellow message Normal x-ray result. No answer. LVM to call back on [phone]. * Telephone Encounter - Bran Parker - 05/23/2023 4:41 PM EST TC from pt requesting call back regarding Results. Type of results: X-Ray Date when done: 05/16/23 Facility: [facility] documented in this encounter Plan of Treatment Upcoming Encounters Date Type Department Care Team (Late st Contact Info) Description 07/26/2024 9:45 AM EDT Office Visit [facility] [address] [place], [place] [phone] Jessi Dueñas MD [address] [place], [place] [phone] documented as of this encounter Visit Diagnoses Not on filedocumented in this encounter Additional Health Concerns Assessment Noted Time PHQ-9 Depression Total Score: 20 023 9:49 AM EDT documented as of this encounter Care Teams Senior Abap Developer Relationship Specialty Start Date End Date Jessi Dueñas MD [address] [place] [address] PCP - General Family Medicine 11/24/20 Mikayla Bhagat Pulp MixerProduct Development Specialist 05/09/23 documented as of this encounter
--- OUTSIDE RECORDS SUMMARY | 2024-06-14 15:42 | XMS_ITS | Encounter Summary ---
Author Organization [facility] Address 75 [facility] 7 [place] [address] Care Team Providers Care Director Organizational Name Role Phone Jessi Dueñas MD Primary Care Provider [phone] Reason for Visit * Reason Onset Date Comments Other 01/05/2023 Encounter Details Date Type Department Care Team ([facility] st Contact Info) Description 01/05/2023 Telephone [facility] [address] [place] [address] Jessi Dueñas MD [address] [place] [address] Other Social History Tobacco Use Types Packs/Day [...] 12:53 PM EDT TC placed to pt [phone] to inform pt PCP sent Cymbalta to the pharmacy yesterday at [facility] for her pain. Pt reports she called [facility] pharmacy today and they told her that they did not receive the script. RN placed pt on hold and called [facility] pharmacy who confirmed they did receive [...] rheumatology referral d/t [facility] not speaking palestinian. Pt was informed PCP has placed new rheumatology referral for [facility] yesterday. Pt verbalized understanding. Pt to f/u PRN. * Telephone Encounter - Divya Frank - 01/05/2023 11:51 AM EDT Tc from pt states PCP advised her she will send a script for pain on 01/04 appointment but pt never received medication. Please contact pt at [phone] (Namibian) documented in this encounter Plan of Treatment Upcoming Encounters Date Type Department Care Team (Late st Contact Info) Description 07/26/2024 9:45 AM EDT Office Visit [facility] MEDICINE [address] [place] [address] Jessi Dueñas MD [address] [place] [address] documented as of this encounter Visit Diagnoses Not on filedocumented in this encounter Additional Health Concerns Assessment Noted Time PHQ-9 Depression Total Score: 20 023 9:49 AM EDT documented as of this encounter Care Teams Director Organizational Relationship Specialty Start Date End Date Jessi Dueñas MD [address] [place] [address] PCP - General Family Medicine 11/24/20 Mikayla Bhagat Aws ArchitectCemetery Workers Supervisor 05/09/23 documented as of this encounter
--- OUTSIDE RECORDS SUMMARY | 2024-06-14 15:42 | XMS_ITS | Encounter Summary ---
Author Organization [employer] [facility] Address 75 [facility] 7t [place] [address] Care Team Providers Care Fagot Heater Helper Name Role Phone Jessi Dueñas MD Primary Care Provider [phone] Reason for Visit * Reason Comments Vomiting Diarrhea Encounter Details Date Type Department Care Team ([facility] st Contact Info) Description 05/25/2024 9:40 AM EST Office Visit [facility] [address] [place] [phone] Name, MD Ignacio [address] [place] [address] Diarrhea, unspecified type (Primary Dx); Nausea and [...] Negative, Indeterminate Negative QC Media Lot # [id number] Rapid COVID Ag Negative Assessment/Plan Diagnoses and [...] 07/26/2024 9:45 AM EDT Office Visit [facility] [address] [place] [address] Jessi Dueñas MD [address] [place] [address] documented as of this encounter Procedures Procedure [...] BOYER ID NOW (05/25/2024 9:52 AM EST) [facility] Influenza B Negative Negative, Indeterminate [facility] QC Media Lot # [id number] [facility] Lot# Expiration Date [facility] Swab 05/25/2024 9:52 AM EST us Ignacio Rivera MD POINT OF CARE TEST ENTER/EDIT OR DERABLES Final Result [facility] [address] [place] [address] [phone] * POCT Rapid Covid-19 BinaxNOW (05/25/2024 9:51 AM EST) [facility] Rapid COVID Ag Negative QC Media Lot # [id number] Lot# Expiration Date Swab 05/25/2024 9:51 AM EST us Ignacio Rivera MD POINT OF CARE TEST ENTER/EDIT OR DERABLES Final Result * POCT Rapid Influenza A BOYER ID NOW (05/25/2024 9:51 AM EST) Influenza A Negative Negative, Indeterminate [facility] QC Media Lot # [id number] [facility] Lot# Expiration Date 10,[id number] [facility] Swab 05/25/2024 9:51 AM EST Ignacio Name POINT OF CARE TEST ENTER/EDIT OR DERABLES Final Result Performing Organization Address City/State/[facility] Co de Phone Number [facility] [address] [place] [phone] documented in this encounter Visit Diagnoses Diagnosis Diarrhea, unspecified type- Primary Nausea and vomiting, unspecified vomiting type documented in this encounter Additional Health Concerns Assessment Noted Time PHQ-9 Depression Total Score: 8 09/19/19 24 11:07 AM EDT documented as of this encounter Care Teams Fagot Heater Helper Relationship Specialty Start Date End Date Jessi Dueñas MD [address] [place] [address] PCP - General Family Medicine 11/24/20 Mikayla Bhagat Pattern Maker ProgramerAssembler Fitter 05/09/23 documented as of this encounter
--- OUTSIDE RECORDS SUMMARY | 2024-06-14 15:42 | XMS_ITS | Encounter Summary ---
Author Organization [employer] Address 75 [facility] 7t [place] [address] Care Team Providers Care Stacker Name Role Phone Jessi Dueñas MD Primary Care Provider [phone] Encounter Details Date Type Department Care Team [...] t he electric, gas, oil or water [employer] threatened to shut off services in your [...] Upcoming Encounters Date Type Department Care Team ([facility] st Contact Info) Description 07/26/2024 9:45 AM EDT Office Visit [facility]INE [address] [place] [phone] Jessi Dueñas MD [address] [place], [place] [phone] documented as of this encounter Procedures Procedure [...] PM EST) Influenza A PCR NEGATIVE Negative [facility] Influenza B PCR NEGATIVE Negative [facility] Resp Syncy Virus RNA Qual PCR NEGATIVE Negative [facility] SARS COV2 PCR NEGATIVE Negative [facility] Comment:All test results mus t be [...] use by authorized laboratories.Testing performed on the slinkset GeneXpert utilizingreal-time RT-PCR.All SARS CoV2 and positive influenza A/B results arereported to [facility]. 05/25/2024 11:5 9 PM EST 05/26/2024 12:02 AM EST Generic External Data Provider LAB MICROBIOLOGY - GENERAL ORDERABLES Final Result [facility] [address] [place] [phone] * hCG, Total, Quantitative (05/25/2024 11:59 PM EST) HCG Quantitative <2 mIU/mL [facility] Comment:Weeks post LMP Appro ximate hCG(Last Menstrual Period) Range (mIU/ml)3 - 4 weeks 9 - 1304 - 5 weeks 75 - 2,6005 - 6 weeks 850 - 20,8006 - 7 weeks 4000 - 100,2007 - 12 weeks 11,500 - 289,97841 - 16 weeks 18,300 - 137,31193 - 29 weeks (2nd trimester) 1,400 - 53,80585 - 41 weeks (3rd trimester) 940 - [...] LES Final Result Performing Organization Address [facility] Co de Phone Number [facility] [address] [place] [phone] * Lipase (05/25/2024 11:59 PM EST) Pathologist [facility] Lipase 33 8 - 78 U/L [facility] 05/25/2024 11:5 9 PM EST 05/26/2024 12:02 AM EST us Generic External Data Provider LAB BLOOD ORDERAB LES Final Result Performing Organization Address [facility] Co de Phone Number [facility] [address] [place] [phone] * Magnesium (05/25/2024 11:59 PM EST) Pathologist [facility] Magnesium 2.0 1.6 - 2.6 mg/dL [facility] 05/25/2024 11:5 9 PM EST 05/26/2024 12:02 AM EST Generic External Data Provider LAB BLOOD ORDERAB LES Final Result Performing Organization Address [facility] de Phone Number [facility] [address] [place] [phone] * (ABNORMAL) Basic Metabolic Panel (05/25/2024 11:59 PM EST) Pathologist [facility] Sodium 140 135 - 145 mmol/L [facility] Potassium 3.6 3.3 - 5.1 mmol/L [facility] Chloride 110(H) 96 - 108 mmol/L [facility] Carbon Dioxide 23 22 - 29 mmol/L [facility] Anion Gap 11(L) 12 - 20 [facility] Urea Nitrogen (BUN) 14 9 - 16 mg/dL [facility] Creatinine, Serum 0.83 0.5 - 1.4 mg/dL [facility] Creatinine Clr Calc Pharmacy 74.7 [facility] Comment:Provided height and weight: 170.18 cm,53.1 kg.eGFR (calculated from the MDRD study equation) and eCrCl(calculated from the Cockcroft-Gault equation) are based ondifferent parameters and may not yield comparable results.If eCrCl result is absurd, please check patient'sheight/weight. Estimated Glomerular Filt Rate >60 [facility] Comment:Chronic Kidney Disea se: Estimated GFR < 60 mL/min/1.64f4Teecrj Kidney Disease: Estimated GFR < 15 mL/min/1.73m2 Glucose 100 60 - 115 mg/dL [facility] Calcium 8.8 8.4 - 10.2 mg/dL [facility] 05/25/2024 11:5 9 PM EST 05/26/2024 12:02 AM EST us Generic External Data Provider LAB BLOOD ORDERAB LES Final Result Performing Organization Address City/State/[facility] Co de Phone Number [facility] [address] [place] [phone] * Hepatic Function Panel (05/25/2024 11:59 PM EST) Bilirubin, Total 0.5 0.0 - 1.0 mg/dL [facility] Bilirubin, Direct 0.2 0.0 - 0.5 mg/dL [facility] Aspartate Amino Transferase 21 5 - 31 U/L [facility] Alanine Aminotransferase 21 0 - 31 U/L [facility] Total Protein 6.9 6.5 - 8.0 g/dL [facility] Albumin Level 4.0 3.5 - 5.0 g/dL [facility] Alkaline Phosphatase 52 39 - 117 U/L [facility] 05/25/2024 11:5 9 PM EST 05/26/2024 12:02 AM EST us Generic External Data Provider LAB BLOOD ORDERAB LES Final Result [facility] [address] [place] [phone] * (ABNORMAL) CBC auto differential (05/25/2024 11:59 PM EST) White Blood Count 7.4 4.8 - 10.8 X10*3/uL [facility] Red Blood Count 3.94(L) 4.20 - 5.50 X10*6/uL [facility] Hemoglobin 12.4 12.0 - 16.0 g/dl [facility] Hematocrit 35.1(L) 37.0 - 47.0 % [facility] Mean Corpuscular Volume 89.1 80.0 - 98.0 fL [facility] Mean Corpuscular Hemoglobin 31.5 27.0 - 33.0 pg [facility] Mean Corpuscular HGB Conc 35.3(H) 31.0 - 35.0 g/dl [facility] Red Cell Distribution Width 12.4 11.0 - 16.0 % [facility] Platelet Count 284 160 - 400 X10*3/uL [facility] Mean Platelet Volume 9.2(L) 9.4 - 12.3 fL [facility] Neutrophils Percent Auto 43.6(L) 45 - 73 % [facility] Imm Gran Pct Auto 0.1 0.0 - 0.4 % [facility] Lymphocytes Percent Auto 49.7(H) 20 - 40 % [facility] Monocytes Percent Auto 6.3 2 - 11 % [facility] Eosinophils Percent Auto 0.3 0 - 4 % [facility] Basophils Percent Auto 0.0 0 - 2 % [facility] NRBC Pct Auto 0.0 0.0 - 0.2 /100WBC [facility] Neutrophils Absolute Auto 3.2 2.0 - 8.3 x10*3/uL [facility] Imm Gran Abs Auto 0.01 0.00 - 0.03 X10*3/uL [facility] Lymphocytes Absolute Auto 3.7 1.2 - 4.9 X10*3/uL [facility] Monocytes Absolute Auto 0.5 0.1 - 1.2 X10*3/uL [facility] Eosinophils Absolute Auto 0.0 0.0 - 0.4 X10*3/uL [facility] Basophils Absolute Auto 0.0 0.0 - 0.2 X10*3/uL [facility] NRBC Abs Auto 0.000 0.0 - 0.012 X10*3/uL [facility] 05/25/2024 11:5 9 PM EST 05/26/2024 12:02 AM EST us Generic External Data Provider LAB BLOOD ORDERAB LES Final Result Performing Organization Address City/State/[facility] Co de Phone Number [facility] [address] [place] [phone] documented in this encounter Visit Diagnoses Not on filedocumented in this encounter Additional Health Concerns Assessment Noted Time PHQ-9 Depression Total Score: 8 09/19/19 24 11:07 AM EDT documented as of this encounter Care Teams Stacker Relationship Specialty Start Date End Date Jessi Dueñas MD [address] [place] [address] PCP - General Family Medicine 11/24/20 Mikayla Bhagat Cattle DehornerChief Hospital Administrator 05/09/23 documented as of this encounter
--- OUTSIDE RECORDS SUMMARY | 2024-06-14 15:42 | XMS_ITS | Encounter Summary ---
Author Organization [employer] Address 75 [facility] 7t [place] [address] Care Team Providers Care Medical Examiner Name Role Phone Jessi Dueñas MD Primary Care Provider [phone] Encounter Details Date Type Department Care Team ([facility] st Contact Info) Description 01/11/2023 Orders Only [facility] [address] [place], [place] [phone] Jessi Dueñas MD [address] [place], [place] [phone] Chronic pain of both knees (Primary Dx) [...] Office Visit [facility] [address] [place] [phone] Jessi Dueñas MD [address] [place] [address] documented as of this encounter Visit Diagnoses Diagnosis Chronic pain of both knees- Primary documented in this encounter Additional Health Concerns Assessment Noted Time PHQ-9 Depression Total Score: 20 023 9:49 AM EDT documented as of this encounter Care Teams Medical Examiner Relationship Specialty Start Date End Date Jessi Dueñas MD [address] [place] [address] PCP - General Family Medicine 11/24/20 Mikayla Bhagat Sausage CannerAssembler Arranger 05/09/23 documented as of this encounter
--- OUTSIDE RECORDS SUMMARY | 2024-06-14 15:42 | XMS_ITS | Encounter Summary ---
Author Organization [employer] Address 75 [facility] 7t [place] [address] Care Team Providers Care Database Administration Manager Name Role Phone Jessi Dueñas MD Primary Care Provider [phone] Encounter Details Date Type Department Care Team ([facility] st Contact Info) Description 05/18/2023 Telephone [facility] [address] [place], [place] [phone] Jessi Dueñas MD [address] [place], [place] [phone] Social History Tobacco Use Types Packs/Day Years [...] Lopez RN - 05/18/2023 8:48 AM EST DATABASE DESIGN ANALYST referral made to [facility], referral form faxed with confirmation of receipt. documented in this encounter Plan of Treatment Upcoming Encounters Date Type Department Care Team (Late st Contact Info) Description 07/26/2024 9:45 AM EDT Office Visit [facility] [address] [place] [address] Jessi Dueñas MD [address] [place] [address] documented as of this encounter Visit Diagnoses Not on filedocumented in this encounter Additional Health Concerns Assessment Noted Time PHQ-9 Depression Total Score: 20 023 9:49 AM EDT documented as of this encounter Care Teams Database Administration Manager Relationship Specialty Start Date End Date Jessi Dueñas MD [address] [place] [address] PCP - General Family Medicine 11/24/20 Mikayla Bhagat Behavioral Sciences InstructorBlindstitch Lining Feller 05/09/23 documented as of this encounter
--- OUTSIDE RECORDS SUMMARY | 2024-06-14 15:42 | XMS_ITS | Encounter Summary ---
Author Organization Point Inside Address [address] [facility] [address] [place] [address] Care Team Providers Care Salad Counter Attendant Name Role Phone Jessi Dueñas MD Primary Care Provider [phone] Reason for Visit * Reason Comments Med Refill Encounter Details Date Type Department Care Team ([facility] st Contact Info) Description 11/23/2023 Refill [facility] [address] [place], [place] [phone] Jessi Dueñas MD [address] [place] [address] Social History Tobacco Use Types Packs/Day Years [...] Description 07/26/2024 9:45 AM EDT Office Visit [facility] [address] [place] [address] Jessi Dueñas MD [address] [place] [address] documented as of this encounter Visit Diagnoses Not on filedocumented in this encounter Additional Health Concerns Assessment Noted Time PHQ-9 Depression Total Score: 8 09/19/19 24 11:07 AM EDT documented as of this encounter Care Teams Salad Counter Attendant Relationship Specialty Start Date End Date Jessi Dueñas MD [address] [place] [address] PCP - General Family Medicine 11/24/20 Mikayla Bhagat Assembler Metal FurnitureLaminating Machine Operator Helper 05/09/23 documented as of this encounter
--- OUTSIDE RECORDS SUMMARY | 2024-06-14 15:42 | XMS_ITS | Clinical Summary ---
Author Organization [employer] Address [address] [facility] [address] [place] [address] Care Team Providers Care Garment Worker Name Role Phone Jessi Dueñas MD Primary Care Provider [phone] Allergies Active Allergy Reactions Criticality Noted Date [...] AND BEDTIME 90 capsule 3 024 Active Lactobacillus 0.05-0.05 MG tabletIndications :Weight loss of more than 10% body weight Take 1 tablet by mouth Once per day. 90 tablet 3 025 Active hydrocortisone 2.5 % cream Apply around the rectum 60 g 025 Active fluticasone (Flonase) 50 MCG/ACT nasal sprayIndications: Allergic rhinitis, unspecified seasonality, unspecified trigger INHALE 2 SPRAYS IN EACH NOSTRIL ONCE DAILY DIRECTED 48 g 025 Active FLUoxetine (PROzac) 40 MG capsule Take 1 capsule (40 mg) by mouth Once per day. 30 capsule 11 025 2025 Active 27-1 MG tablet Take 1 tablet by mouth in the morning. 90 tablet 3 025 Active traMADol (Ultram) 50 MG tabletIndications :Fibromyalgia Take 1 tablet (50 mg) by mouth every 12 (twelve) hours if needed for severe pain for up to 28 days. 56 tablet 025 2024 Active Mometasone Furoate (Asmanex HFA) 200 MCG/ACT aerosol INHALE 1 PUFF BY MOUTH TWICE DAILY RINSE MOUTH AFTER USING. 13 g 025 Active rOPINIRole (Requip) 4 MG tabletIndications :Restless leg syndrome Take 1 tablet (4 mg) by mouth at bedtime. 90 tablet 2 025 Active loperamide (Imodium) 2 MG capsule TAKE 2 CAPSULES BY MOUTH THREE TIMES DAILY NEEDED FOR LOOSE STOOL 024 2024 Discontinued(T herapy completed) famotidine (Pepcid) 20 MG tabletIndications :Gastroesophageal reflux [...] 1 TABLET BY MOUTH EVERY TWELVE HOURS 2024 Discontinued(T herapy completed) 27-1 MG tablet TAKE 1 TABLET BY MOUTH EVERY MORNING 90 tablet 3 024 2024 Discontinued(R eorder (will not trigger notification to Pharmacy)) FLUoxetine (PROzac) 20 MG capsule Take 1 capsule (20 mg) by mouth Once per day. 90 capsule 3 024 2024 Discontinued Mometasone Furoate (Asmanex HFA) 200 MCG/ACT aerosol INHALE 1 PUFF TWICE DAILY. RINSE MOUTH AFTER USING. 13 g 1 024 2024 Discontinued rOPINIRole (Requip) 4 MG tabletIndications :Restless leg syndrome TAKE 1 TABLET BY MOUTH AT BEDTIME 90 tablet 024 2024 Discontinued(R eorder (will not trigger notification to Pharmacy)) traMADol (Ultram) 50 MG tabletIndications :Fibromyalgia Take 1 tablet (50 mg) by mouth every 12 (twelve) hours if needed for severe pain for up to 28 days. Do not start before May 02, 2024. 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 Neck pain 10/27/2022 [...] Encounters Date Type Department Care Team Description 06/14/2024 Orders Only [facility] [address] [place] [address] Jessi Dueñas MD Restless leg syndrome 06/14/2024 Population Health Risk Score Community Care [facility] (C3) Department [address] [phone] Provider, Population Health Generic 06/12/2024 Telephone [facility] [address] [place] [address] Jessi Dueñas MD Medication Question; Med Refill 06/08/2024 Refill [facility] [address] [place] [phone] Jessi Dueñas MD 06/03/2024 Refill [facility] [address] [place] [phone] Jessi Dueñas MD Fibromyalgia 05/30/2024 Patient Outreach [address] [address] Jessi Dueñas MD Care Coordination (C3 -[facility] telephone call outreach) 05/30/2024 Orders Only [facility] External Provider, [facility] 05/29/2024 Patient Outreach [address] [address] Jessi Dueñas MD Transition Of Care (Tcm) (ED visit requested) 05/29/[address] [address] Jessi Dueñas MD Med Refill 05/29/[address] [address] Jessi Dueñas MD Fibromyalgia 05/28/2024 Patient Outreach [address] [address] Jessi Dueñas MD Transition Of Care (Tcm) (ERRORr) 05/27/2024 Patient Outreach [address] [address] Jessi Dueñas MD Care Coordination (C3 -[facility] telephone call outreach /) 05/27/2024 Patient Outreach [address] [address] Jessi Dueñas MD Care Coordination (C3 CM-[facility] telephone call outreach) 05/27/[address] [address] Jessi Dueñas MD Care Management (C3CM- chart review) 05/25/2024 9:40 AM EST Office Visit [facility] [address] [place] [phone] Ignacio Rivera MD Diarrhea, unspecified type (Primary Dx); Nausea and vomiting, unspecified vomiting type 05/25/2024 Orders Only GENERIC EXTERNAL DATA DEPARTMENT Provider, Generic External Data 05/17/2024 11:00 AM EST Office Visit [facility] [address] [place] [address] Jessi Dueñas MD Weight loss of more than 10% body weight (Primary Dx); Post concussion syndrome; Gastroesophageal reflux disease without esophagitis; Bipolar affective disorder, currently depressed, moderate ([facility]); Fibromyalgia 05/17/2024 Orders Only GENERIC EXTERNAL DATA DEPARTMENT Provider, Generic External Data 05/17/2024 Travel 05/13/2024 Telephone [facility] [address] [place] [address] Jessi Dueñas MD [place] [employer] [facility] (Disposable Underpad/Chux Large) 05/12/2024 Refill [facility] [address] [place] [phone] Jessi Dueñas MD Allergic rhinitis, unspecified seasonality, unspecified trigger 05/02/2024 Telephone [facility] [address] [place] [phone] Jessi Dueñas MD [facility] (Disposable underpad, large/1 unit = each, 248 per mo.) 04/29/2024 Refill [facility] [address] [place] [address] Jessi Dueñas MD Fibromyalgia 04/17/2024 Telephone [facility] [address] [place] [address] Jessi Dueñas MD 04/17/2024 Orders Only [facility] [address] [place] [address] Jessi Dueñas MD Acute bilateral low back pain without sciatica (Primary Dx); Polyarthralgia; Chronic pain of both knees; Bilateral hand pain 04/11/2024 Telephone [facility] [address] [place] [phone] Jessi Dueñas MD Referral 04/09/2024 11:30 AM EST Office Visit [facility] [address] [place] [address] Jessi Dueñas MD Acute right ankle pain (Primary Dx); Weight loss of more than 10% body weight; Bipolar disorder, current episode mixed, moderate (CMS/HCC); Mild persistent asthma without complication; Incontinence of feces, unspecified fecal incontinence type; Post concussion syndrome 04/09/[address] [address] Jessi Dueñas MD 04/09/[address] [address] Jessi Dueñas MD Durable Medical Equipment (L&C Form: Boost) 04/09/2024 Travel 04/04/[address] [address] Jessi Dueñas MD Medication Question 04/04/[address] [address] Jessi Dueñas MD Fibromyalgia 04/02/2024 Patient Outreach [address] [address] Jessi Dueñas MD Pre-visit Planning ([facility] screening completed on 05/09/2023) 04/01/[address] [address] Jessi Dueñas MD Durable Medical Equipment (L&C Form: Pull ups) 03/29/[address] [address] Jessi Dueñas MD telephone call 03/20/[address] [address] Jessi Dueñas MD Restless leg syndrome from Last 3 Months Immunizations Name Administration [...] Description 07/26/2024 9:45 AM EDT Office Visit [facility] [address] [place] [address] Jessi Dueñas MD [address] [place] [address] Health Maintenance Due Date Last Done Comments [...] MR MRCP Routine 05/30/2024 7:29 AM EST HCG, TOTAL, QN Routine 05/25/2024 11:59 [...] 12:22 PM EST Acute right ankle pain BI MAMMOGRAM SCREENING TOMOSYNTHESIS BILATERAL Routine 09/28/2023 12:08 PM EDT Breast cancer screening by mammogram HPV MRNA E6/E7 REFLEX TO HPV 16, 18/45 Routine 02/22/2021 12:00 AM EST THINPREP IMAGING SYSTEM PAP Routine 02/22/2021 12:00 AM EST from Last 3 Months or Most Recently Relevant to Health Maintenance Results * MR MRCP (05/30/2024 7:29 AM EST) Anatomical Region Laterality Modality Lower Extremities Left Magnetic Reson ance 05/30/2024 7:29 AM EST Narrative 05/30/2024 8:24 AM EST ? [facility] ?[address] ?[place] [address] ? Magnetic Resonance Report ? Signed ? Patient: Kera Armstrong ?MR#: MM ?? [id number] ? : 1980 ?Acct:[id number] ? Age/Sex: 43 / F ?ADM Date: 05/30/24 ? Loc: HO.MRI ? Attending Dr: Ashley AZEVEDO ? Ordering Physician: Ashley Duncan ?? Date of Service: 05/30/24 ?? Procedure(s): MR MRCP ?? Accession Number(s): [id number] ? cc: Jessi Dueñas; Ashley Duncan ? [...] by Everett Rich MD in OV> ?05/30/24 0821 ? DD/ 0729 ? TD/TT: 05/30/24 0805 ? Mononitrotoluene Operator: ? Procedure Note Cy, Eloy - 05/30/2024 [place] [address] Magnetic Resonance Report Signed Patient: Kera ArmstrongMR#: [id number] : 1980Acct:[id number] Age/Sex: 43 / FADM Date: 05/30/24 Loc: HO.MRI Attending Dr: Ashley AZEVEDO Ordering Physician: Ashley Duncan Date of Service: 05/30/24 Procedure(s): MR MRCP Accession Number(s): [id number] cc: Jessi Dueñas; Ashley Duncan EXAMINATION: MRCP [...] by: Everett Rich MD 05/30/2024 08:21 AM EST RP Dictated By: Eveertt Rich MD Signed By: <Electronically signed by Everett Rich MD in OV> 05/30/24 0821 DD/ 0729 TD/TT: 05/30/24 0805 Mononitrotoluene Operator: [facility] External Provider IMG MRI PROCEDURES Final Result * SARS-CoV-2 RNA, Influenza A/B, and RSV RNA, Ql NAAT (05/25/2024 11:59 PM EST) Influenza A PCR NEGATIVE Negative [facility] Influenza B PCR NEGATIVE Negative [facility] Resp Syncy Virus RNA Qual PCR NEGATIVE Negative [facility] SARS COV2 PCR NEGATIVE Negative [facility] Comment:All test results mus t [...] use by authorized laboratories.Testing performed on the [employer] GeneXpert utilizingreal-time RT-PCR.All SARS CoV2 and positive influenza A/B results arereported to [facility]. 05/25/2024 11:5 9 PM EST 05/26/2024 12:02 AM EST us Generic External Data Provider LAB MICROBIOLOGY - GENERAL ORDERABLES Final Result [facility] [address] [place] [address] [phone] * (ABNORMAL) CBC auto differential (05/25/2024 11:59 PM EST) White Blood Count 7.4 4.8 - 10.8 X10*3/uL [facility] Red Blood Count 3.94(L) 4.20 - 5.50 X10*6/uL [facility] Hemoglobin 12.4 12.0 - 16.0 g/dl [facility] Hematocrit 35.1(L) 37.0 - 47.0 % [facility] Mean Corpuscular Volume 89.1 80.0 - 98.0 fL [facility] Mean Corpuscular Hemoglobin 31.5 27.0 - 33.0 pg [facility] Mean Corpuscular HGB Conc 35.3(H) 31.0 - 35.0 g/dl [facility] Red Cell Distribution Width 12.4 11.0 - 16.0 % [facility] Platelet Count 284 160 - 400 X10*3/uL [facility] Mean Platelet Volume 9.2(L) 9.4 - 12.3 fL [facility] Neutrophils Percent Auto 43.6(L) 45 - 73 % [facility] Imm Gran Pct Auto 0.1 0.0 - 0.4 % [facility] Lymphocytes Percent Auto 49.7(H) 20 - 40 % [facility] Monocytes Percent Auto 6.3 2 - 11 % [facility] Eosinophils Percent Auto 0.3 0 - 4 % [facility] Basophils Percent Auto 0.0 0 - 2 % [facility] NRBC Pct Auto 0.0 0.0 - 0.2 /100WBC [facility] Neutrophils Absolute Auto 3.2 2.0 - 8.3 x10*3/uL [facility] Imm Gran Abs Auto 0.01 0.00 - 0.03 X10*3/uL [facility] Lymphocytes Absolute Auto 3.7 1.2 - 4.9 X10*3/uL [facility] Monocytes Absolute Auto 0.5 0.1 - 1.2 X10*3/uL [facility] Eosinophils Absolute Auto 0.0 0.0 - 0.4 X10*3/uL [facility] Basophils Absolute Auto 0.0 0.0 - 0.2 X10*3/uL [facility] NRBC Abs Auto 0.000 0.0 - 0.012 X10*3/uL [facility] 05/25/2024 11:5 9 PM EST 05/26/2024 12:02 AM EST us Generic External Data Provider LAB BLOOD ORDERAB LES Final Result Performing Organization Address City/State/[facility] Co de Phone Number [facility] [address] [place] [phone] * hCG, Total, Quantitative (05/25/2024 11:59 PM EST) HCG Quantitative <2 mIU/mL [facility] Comment:Weeks post LMP Appro ximate hCG(Last Menstrual Period) Range (mIU/ml)3 - 4 weeks 9 - 1304 - 5 weeks 75 - 2,6005 - 6 weeks 850 - 20,8006 - 7 weeks 4000 - 100,2007 - 12 weeks 11,500 - 289,05995 - 16 weeks 18,300 - 137,44625 - 29 weeks (2nd trimester) 1,400 - 53,49124 - 41 weeks (3rd trimester) 940 - [...] ORDERAB LES Final Result Performing Organization Address [facility] Co de Phone Number [facility] [address] [place] [phone] * Magnesium (05/25/2024 11:59 PM EST) Magnesium 2.0 1.6 - 2.6 mg/dL [facility] 05/25/2024 11:5 9 PM EST 05/26/2024 12:02 AM EST Generic External Data Provider LAB BLOOD ORDERAB LES Final Result Performing Organization Address [facility] Phone Number [facility] [address] [place] [phone] * Lipase (05/25/2024 11:59 PM EST) Only the most recent of2 resultswithin the time period is included. Lipase 33 8 - 78 U/L [facility] 05/25/2024 11:5 9 PM EST 05/26/2024 12:02 AM EST Generic External Data Provider LAB BLOOD ORDERAB LES Final Result Performing Organization Address [facility] Phone Number [facility] [address] [place] [phone] * Hepatic Function Panel (05/25/2024 11:59 PM EST) Only the most recent of2 resultswithin the time period is included. Bilirubin, Total 0.5 0.0 - 1.0 mg/dL [facility] Bilirubin, Direct 0.2 0.0 - 0.5 mg/dL [facility] Aspartate Amino Transferase 21 5 - 31 U/L [facility] Alanine Aminotransferase 21 0 - 31 U/L [facility] Total Protein 6.9 6.5 - 8.0 g/dL [facility] Albumin Level 4.0 3.5 - 5.0 g/dL [facility] Alkaline Phosphatase 52 39 - 117 U/L [facility] 05/25/2024 11:5 9 PM EST 05/26/2024 12:02 AM EST us Generic External Data Provider LAB BLOOD ORDERAB LES Final Result [facility] [address] [place] [phone] [phone] * (ABNORMAL) Basic Metabolic Panel (05/25/2024 11:59 PM EST) Sodium 140 135 - 145 mmol/L [facility] Potassium 3.6 3.3 - 5.1 mmol/L [facility] Chloride 110(H) 96 - 108 mmol/L [facility] Carbon Dioxide 23 22 - 29 mmol/L [facility] Anion Gap 11(L) 12 - 20 [facility] Urea Nitrogen (BUN) 14 9 - 16 mg/dL [facility] Creatinine, Serum 0.83 0.5 - 1.4 mg/dL [facility] Creatinine Clr Calc Pharmacy 74.7 [facility] Comment:Provided height and weight: 170.18 cm,53.1 kg.eGFR (calculated from the MDRD study equation) and eCrCl(calculated from the Cockcroft-Gault equation) are based ondifferent parameters and may not yield comparable results.If eCrCl result is absurd, please check patient'sheight/weight. Estimated Glomerular Filt Rate >60 [facility] Comment:Chronic Kidney Disea se: Estimated GFR < 60 mL/min/1.56e1Nyyvxy Kidney Disease: Estimated GFR < 15 mL/min/1.73m2 Glucose 100 60 - 115 mg/dL [facility] Calcium 8.8 8.4 - 10.2 mg/dL [facility] 05/25/2024 11:5 9 PM EST 05/26/2024 12:02 AM EST Generic External Data Provider LAB BLOOD ORDERAB LES Final Result Performing Organization Address [facility] de Phone Number [facility] [address] [place] [phone] * POCT Rapid Influenza B BOYER ID NOW (05/25/2024 9:52 AM EST) Influenza B Negative Negative, Indeterminate [facility] QC Media Lot # [id number] [facility] Lot# Expiration Date [facility] Swab 05/25/2024 9:52 AM EST Ignacio Rivera MD POINT OF CARE TEST ENTER/EDIT OR DERABLES Final Result Performing Organization Address [facility] de Phone Number [facility] [address] [place] [phone] * POCT Rapid Influenza A BOYER ID NOW (05/25/2024 9:51 AM EST) Influenza A Negative Negative, Indeterminate [facility] QC Media Lot # [id number] [facility] Lot# Expiration Date [facility] Swab 05/25/2024 9:51 AM EST Ignacio Rivera MD POINT OF CARE TEST ENTER/EDIT OR DERABLES Final Result Performing Organization Address [facility] Co de Phone Number [facility] [address] [place] [phone] * POCT Rapid Covid-19 BinaxNOW (05/25/2024 9:51 AM EST) Rapid COVID Ag Negative QC Media Lot # [id number] Lot# Expiration Date ,026 Swab 05/25/2024 9:51 AM EST us Ignacio Rivera MD POINT OF CARE TEST ENTER/EDIT OR DERABLES Final Result * VITAMIN D 25-OH (D2 AND D3) (05/17/2024 9:40 AM EST) Vitamin D, 25-OH, D2 <4 ng/mL [facility] Comment:This test was develo ped and its analytical performancecharacteristics have been determined by [employer] [place], [place]. It hasnot been cleared or approved by the .[place]. Food and DrugAdministration. This assay has been validated pursuantto the CLIA regulations and is used for clinicalpurposes.THIS TEST WAS PERFORMED AT:[employer] [id number] [place] [phone] MADRID MD,PHD Vitamin D, 25-OH, D3 31 ng/mL [facility] Comment:This test was develo ped and its analytical performancecharacteristics have been determined by [employer] [place], [place]. It hasnot been cleared or approved by the U.S. Food and DrugAdministration. This assay has been validated pursuantto the CLIA regulations and is used for clinicalpurposes. Vitamin D, 25-OH, Total 31 30 - 100 ng/mL [facility] Comment:Vitamin D, 25-Hydrox y reports [...] = 30 ng/mL.For additional information, please refer tohttp://education.[employer]/faq/XCK098(This link is being provided for informational/educational purposes only.) 05/17/2024 9:40 AM EST 05/17/2024 9:40 AM EST us Generic External Data Provider LAB BLOOD ORDERAB LES Final Result Performing Organization Address City/[facility]/ZIP Co de Phone Number [facility] [address] [place] [phone] * Vitamin B12 (Cobalamin) and Folate Panel, Serum (05/17/2024 9:40 AM EST) Vitamin B12 474 200 - 900 pg/mL [facility] Comment:NORMAL 200-900 PG/ML INDETERMINATE 160-199 PG/ML DEFICIENT < 160 PG/ML Folate 15.2 > or = 4.0 ng/mL [facility] Comment:Reference Values:> o r = 4.0 ng/mL< 4.0 ng/mL suggests folate deficiency Methotrexate, aminopterin and folinic acid(leucovorin) are chemotherapeutic agents whose molecularstructures are similar to folate; therefore, the Architectfolate assay cannot be used for patients using these drugs. 05/17/2024 9:40 AM EST 05/17/2024 9:40 AM EST us Generic External Data Provider LAB BLOOD ORDERAB LES Final Result Performing Organization Address [facility] Co de Phone Number [facility] [address] [place] [phone] * TSH with Reflex to Free T4 (05/17/2024 9:40 AM EST) TSH reflex Free T4 1.12 0.32 - 4.0 uIU/mL [facility] 05/17/2024 9:40 AM EST 05/17/2024 9:40 AM EST us Generic External Data Provider LAB BLOOD ORDERAB LES Final Result Performing Organization Address City/[facility]/ZIP Co de Phone Number [facility] [address] [place] [phone] * Hepatitis Panel, General (05/17/2024 9:40 AM EST) Hepatitis A IgM Nonreactive Nonreactive [facility] Comment:IgM antibodies to AMAYA V not detected; does not exclude earlyacute or recovered HAV infection. ~Hepatitis B Surface Antibody REACTIVE Nonreactive [facility] Comment:REACTIVE: > 11.99 mI U/mL Hepatitis B Core Antibody Nonreactive Nonreactive [facility] Hepatitis C Antibody Nonreactive Nonreactive [facility] Comment:Antibodies to HCV no t detected; does not exclude early acuteHCV infection. Hepatitis B Surface Ag Negative Negative [facility] 05/17/2024 9:40 AM EST 05/17/2024 9:40 AM EST us Generic External Data Provider LAB BLOOD ORDERAB LES Final Result Performing Organization Address [facility] Co de Phone Number [facility] [address] [place] [phone] * HIV-1/2 Antigen and Antibodies, Fourth Generation, with Reflexes (05/17/2024 9:40 AM EST) HIV AB/AG Nonreactive Nonreactive [facility] Comment:HIV-1 p24 Ag and/or HIV-1/HIV-2 Ab not detected.A test result that is nonreactive does not exclude thepossibility of exposure to or infection with HIV-1 and/orHIV-2. Nonreactive results in this assay for individualswith prior exposure to HIV-1 and/or HIV-2 may be due toantigen and antibody levels that are below the limit ofdetection of this assay.The [employer] HIV Ag/Ab Combo assay result andsupplemental assay results should be interpreted inconjunction with the patient's clinical presentation,history and other laboratory results. If the results areinconsistent with clinical evidence, additional testing issuggested to confirm the result. 05/17/2024 9:40 AM EST 05/17/2024 9:40 AM EST us Generic External Data Provider LAB BLOOD ORDERAB LES Final Result Performing Organization Address City/[facility]/ZIP Co de Phone Number [facility] [address] [place] [phone] * XR Ankle 3+ Views Right (04/09/2024 12:22 PM EST) Anatomical Region Laterality Modality Lower Extremities, Ankle Right Radiogr aphic Imaging 04/09/2024 12:2 2 PM EST Narrative 04/09/2024 12:45 PM EST ?[facility] ?[address] ?[place] [address] ?XRay Report ? Signed ? Patient: Kera Armstrong ?MR#: MM ?? [id number] ? : 1980 ?Acct:[id number] ? Age/Sex: 43 / F ?ADM Date: 04/09/24 ? Loc: HO.HHCX ? Attending Dr: Jessi Dueñas MD ? Ordering Physician: Jessi Dueñas ?? Date of Service: 04/09/24 ?? Procedure(s): XR ankle RT min 3V ?? Accession Number(s): [id number] ? cc: Jessi Dueñas ? EXAMINATION: ?? [...] DD/ 1222 ? TD/TT: 04/09/24 1231 ? Mononitrotoluene Operator: MSM ? Procedure Note Cy, Eloy - 04/09/[address] [address] XRay Report Signed Patient: Kera ArmstrongMR#: MM [id number] : 1980Acct:[id number] Age/Sex: 43 / FADM Date: 04/09/24 Loc: HO.HHCX Attending Dr: Jessi Dueñas MD Ordering Physician: Jessi Dueñas Date of Service: 04/09/24 Procedure(s): XR ankle RT min 3V Accession Number(s): [id number] cc: Jessi Dueñas EXAMINATION: XR ANKLE, RIGHT [...] 04/09/24 1242 DD/ 1222 TD/TT: 04/09/24 1231 Mononitrotoluene Operator: [facility] [place] Jessi Dueñas MD IMG XR PROCEDURES Edited Resul t - Final * BI Mammogram Screening Tomosynthesis Bilateral (09/28/2023 12:08 PM EDT) Anatomical Region Laterality Modality Breast Bilateral Mammography 09/28/2023 12:0 8 PM EDT Narrative 10/27/2023 9:20 AM EDT ? [facility] [place] ? [address] ?[place] [address] ? Mammography Report ? Signed ? Patient: Kera Armstrong ?MR#: [id number] ?? [id number] ? : 1980 ?Acct:[id number] ? Age/Sex: 42 / F ?ADM Date: 06/27/24 ? Loc: HO.MAMMO ? Attending Dr: Jessi Dueñas MD ? Ordering Physician: Anita Arriaga MD ?Re ?? sults: 1Negative ? Date of Service: 09/28/23 ?Follow Up: 1 Year From Orig ?? inal Mammogram ? Procedure(s): MM tomosynthesis screening BI ?? Accession Number(s): [id number] ? cc: Jessi Dueñas; Anita Arriaga MD [...] 0916 ? DD/ 1208 ? TD/TT: ? Mononitrotoluene Operator: ? Procedure Note Donotuseinterpreter, Image - [facility] [address] [place] [address] Mammography Report Signed Patient: Kera ArmstrongMR#: [id number] : 1980Acct:[id number] Age/Sex: 42 / FADM Date: 09/28/23 Loc: MAMMO Attending Dr: Jessi Dueñas MD Ordering Physician: Anita Arriaga sults: 1Negative Date of Service: 09/28/23Follow Up: 1 Year From Orig inal Mammogram Procedure(s): MM tomosynthesis screening BI Accession Number(s): [id number] cc: Jessi Dueñas; Anita Arriaga MD EXAMINATION: [...] in OV> 10/27/23 0916 DD/ 1208 TD/TT: Mononitrotoluene Operator: Anita Roca MD IMG BI PROCEDURES Final [...] was manually screened according to routine procedures. Transformer Molder : SEE COM[facility] Comment: KN, CT(ASCP) CT screening location: [address] ??[id number] Interpretation/R esult: Negative for intraepithelial lesion or malignancy. [facility] LMP: NONE GIVEN [facility] Prev. BX: NONE GIVEN [facility] Prev. PAP: NONE GIVEN [facility] SOURCE: None given [facility] Statement Of Adequacy: [facility] Comment: Satisfactory for evaluation. Endocervical/transformation zone component absent. Partially obscuring blood 02/22/2021 us Jessi Dueñas MD LAB PATHOLOGY ORDERABLES Final Result [facility] [address] * HPV mRNA E6/E7 REFLEX TO HPV 16, 18/45 (02/22/2021 12:00 AM EST) HPV nRNA E6/E7 Not Detected Not Detected [facility] Comment: Methodology: Dinkey Operator Slate-Mediated Amplification This assay detects E6/E7 viral messenger RNA (mRNA) from 14 high-risk HPV types (16,18,31,33,35,39,45,51,52,56,58,59,66,68). ? The analytical performance characteristics of this assay have been determined by [employer]. The modifications have not been cleared or approved by the FDA. This assay has been validated pursuant to the CLIA regulations and is used for clinical purposes. ?? For additional information, please refer to http://education.[employer]faq/ZQG506s3 (This link if provided for information/ educational purposes only.) 02/22/2021 us Jessi Dueñas MD LAB CYTOLOGY ORDERABLES Final Result Performing Organization Address City/State/[facility] Co wa Phone Number [facility] [address] from Last 3 Months or Most Recently Relevant to Health Maintenance Insurance [facility] C3 HSN PARTIAL Care Teams Garment Worker Relationship Specialty Start Date End Date Jessi Dueñas MD [address] [place] [address] PCP - General Family Medicine 11/24/20 Mikayla Bhagat Take Down SorterHealth Services Coordinator 05/09/23
--- OUTSIDE RECORDS SUMMARY | 2024-06-14 15:42 | XMS_ITS | Encounter Summary ---
Author Organization [employer] Address 75 [facility] 7 [place] [address] Care Team Providers Care Ground Crew Chief Name Role Phone Jessi Dueñas MD Primary Care Provider [phone] Reason for Visit * Reason Onset Date Comments Med Refill 05/29/2024 Encounter Details Date Type Department Care Team ([facility] st Contact Info) Description 05/29/2024 Telephone [facility] MEDICINE [address] [place], [place] [phone] Jessi Dueñas MD [address] [place], [place] [phone] Med Refill Social History Tobacco Use Types [...] 4 MG tablet To be sent to: [facility] pharmacy documented in this encounter Plan of Treatment Upcoming Encounters Date Type Department Care Team (Late st Contact Info) Description 07/26/2024 9:45 AM EDT Office Visit [facility] MEDICINE [address] [place] [address] Jessi Dueñas MD [address] [place] [address] documented as of this encounter Visit Diagnoses Not on filedocumented in this encounter Additional Health Concerns Assessment Noted Time PHQ-9 Depression Total Score: 8 06/18/20 24 11:07 AM EDT documented as of this encounter Care Teams Ground Crew Chief Relationship Specialty Start Date End Date Jessi Dueñas MD [address] [place] [address] PCP - General Family Medicine 11/24/20 Mikayla Bhagat Welder First ClassCapacitor Pack Press Operator 05/09/23 documented as of this encounter
--- OUTSIDE RECORDS SUMMARY | 2024-06-14 15:42 | XMS_ITS | Encounter Summary ---
Author Organization [employer] Address 75 [facility] 7 [place] [address] Care Team Providers Care Television News Producer Name Role Phone Jessi Dueñas MD Primary Care Provider [phone] Reason for Visit * Reason Comments Transition Of Care (Tcm) ED visit reques felecia Encounter Details Date Type Department Care Team ([facility] st Contact Info) Description 05/29/2024 Patient Outreach [facility] MEDICINE [address] [place] [address] Jessi Dueñas MD [address] [place] [address] Transition Of Care (Tcm) (ED visit requested) [...] visit. Was transferred to HDF line but casualty underwriter unable to schedule HDF . [facility] attempted to schedule 15 minute ED visit but patient is also requesting to be seen by PCP . Please contact patient with follow up . * Mary Hurtado RN - 05/29/2024 2:40 PM EST TC placed to patient [phone] in regards to below message. Patient reports she was seen at [facility] on 05/26/24 for vomiting, diarrhea, nausea and fatigue. Patient reports she continues to feel the same. Patient reports last vomited yesterday and has had diarrhea x4 today. Patient reports continued nausea. Patient was discharged from [facility] without any medications. Patient reports she is following the BRAT diet at this time. Patient follows with [facility] and reports she has a f/u [...] also does not want to come to [facility] as she reports she was seen on 05/25/24 and they recommended patient go to ED and f/u with GI. RN advised patient to call [facility] and inform of ED visit and [...] 9:45 AM EDT Office Visit [facility] MEDICINE [address] [place] [address] Jessi Dueñas MD [address] [place] [address] documented as of this encounter Visit Diagnoses Not on filedocumented in this encounter Additional Health Concerns Assessment Noted Time PHQ-9 Depression Total Score: 8 09/19/19 24 11:07 AM EDT documented as of this encounter Care Teams Television News Producer Relationship Specialty Start Date End Date Jessi Dueñas MD [address] [place] [address] PCP - General Family Medicine 11/24/20 Mikayla Bhagat Billing AdjudicatorSales And Events Coordinator 05/09/23 documented as of this encounter
--- OUTSIDE RECORDS SUMMARY | 2024-06-14 15:42 | XMS_ITS | Encounter Summary ---
Author Organization [employer] Address 75 [facility] 7t [place] [address] Care Team Providers Care Duplicator Punch Operator Name Role Phone Jessi Dueñas MD Primary Care Provider Reason for Visit * Reason Onset Date Comments Nurse Triage 02/07/2023 Encounter Details Date Type Department Care Team ([facility] st Contact Info) Description 02/07/2023 Telephone [facility] MEDICINE [address] [place] [address] Jessi Dueñas MD [address] [place] [address] Nurse Triage Social History Tobacco Use Types [...] 02/07/2023 11:26 AM EST Triage call with [place]ight[place] [id number] Pt reports ED visit @ [facility] 02/06/23 for abdominal pain and migraines. Report is requested from [facility] clinical home day care provider. Pt reports was supposed to be getting [...] lower back pain states she went to [facility] last on 02/06 and did nothing. Patient speaks uzbek documented in this encounter Plan of Treatment Upcoming Encounters Date Type Department Care Team (Late st Contact Info) Description 07/26/2024 9:45 AM EDT Office Visit [facility] MEDICINE [address] [place] [address] Jessi Dueñas MD [address] [place] [address] documented as of this encounter Visit Diagnoses Not on filedocumented in this encounter Additional Health Concerns Assessment Noted Time PHQ-9 Depression Total Score: 20 023 9:49 AM EDT documented as of this encounter Care Teams Duplicator Punch Operator Relationship Specialty Start Date End Date Jessi Dueñas MD [address] [place] [address] PCP - General Family Medicine 11/24/20 Mikayla Bhagat Is AnalystCommunication Manager 05/09/23 documented as of this encounter
--- OUTSIDE RECORDS SUMMARY | 2024-06-14 15:42 | XMS_ITS | Encounter Summary ---
Author Organization [employer] Address [address] [facility] [address] 7[address] [place] [address] Care Team Providers Care Environmental Services Worker Name Role Phone Jessi Dueñas MD Primary Care Provider [phone] Encounter Details Date Type Department Care Team ([facility] st Contact Info) Description 09/22/2023 Orders Only [facility] MEDICINE [address] [place], [place] [phone] Jessi Dueñas MD 230 [place], [place] [phone] Social History Tobacco Use Types Packs/Day Years [...] Description 07/26/2024 9:45 AM EDT Office Visit [facility] MEDICINE [address] [place] [address] Jessi Dueñas MD [address] [place] [address] documented as of this encounter Visit Diagnoses Not on filedocumented in this encounter Additional Health Concerns Assessment Noted Time PHQ-9 Depression Total Score: 8 09/19/19 24 11:07 AM EDT documented as of this encounter Care Teams Environmental Services Worker Relationship Specialty Start Date End Date Jessi Dueñas MD [address] [place] [address] PCP - General Family Medicine 11/24/20 Mikayla Bhagat Animal HandlerSwimming Pool Service Technician 05/09/23 documented as of this encounter
--- OUTSIDE RECORDS SUMMARY | 2024-06-14 15:42 | XMS_ITS | Encounter Summary ---
Author Organization [employer] Address 75 [facility] 7 [place] [address] Care Team Providers Care Telephone Lineworker Name Role Phone Jessi Dueñas MD Primary Care Provider [phone] Reason for Visit * Reason Onset Date Comments Med Refill 05/29/2024 Encounter Details Date Type Department Care Team ([facility] st Contact Info) Description 05/29/2024 Refill [facility] MEDICINE 230 [place] [address] Jessi Dueñas MD 230 [place], [place] [phone] Fibromyalgia Social History Tobacco Use Types Packs/Day [...] 50 MG tablet To be sent to: [facility] documented in this encounter Plan of Treatment Upcoming Encounters Date Type Department Care Team (Late st Contact Info) Description 07/26/2024 9:45 AM EDT Office Visit [facility] MEDICINE 230 [place] [address] Jessi Dueñas MD [address] [place] [address] documented as of this encounter Visit Diagnoses Diagnosis Fibromyalgia Unspecified myalgia and myositis documented in this encounter Additional Health Concerns Assessment Noted Time PHQ-9 Depression Total Score: 8 09/19/19 24 11:07 AM EDT documented as of this encounter Care Teams Telephone Lineworker Relationship Specialty Start Date End Date Jessi Dueñas MD [address] [place] [address] PCP - General Family Medicine 11/24/20 Mikayla Bhagat Seafood PreparerInstructional Designer 05/09/23 documented as of this encounter
--- OUTSIDE RECORDS SUMMARY | 2024-06-14 15:42 | XMS_ITS | Encounter Summary ---
Author Organization [facility] Address 75 [facility] 7 [place] [address] Care Team Providers Care Claims Counsel Name Role Phone Jessi Dueñas MD Primary Care Provider [phone] Reason for Visit * Reason Onset Date Comments Care Management 05/27/2024 [facility]- chart revi ew Encounter Details Date Type Department Care Team ([facility] st Contact Info) Description 05/27/2024 Telephone [facility] MEDICINE 230 [place] [address] Jessi Dueñas MD 230 [place] [address] Care Management ([facility]- chart review) Social History [...] body pain, neck pain . Specialists include [facility], neurology, rheumatology [facility], [facility]opedic surgery, sleep medicine, [facility] optometry, ENT, [facility], [facility] Women's. ED visits within the last 12 months include [facility] 05/25. Last appointment in PCP office on 05/25. Next appointment scheduled for 07/26 with PCP. documented in this encounter Plan of Treatment Upcoming Encounters Date Type Department Care Team ([facility] Contact Info) Description 07/26/2024 9:45 AM EDT Office Visit [facility] MEDICINE [address] [place] [address] Jessi Dueñas MD [address] [place] [address] documented as of this encounter Visit Diagnoses Not on filedocumented in this encounter Additional Health Concerns Assessment Noted Time PHQ-9 Depression Total Score: 8 09/19/19 24 11:07 AM EDT documented as of this encounter Care Teams Claims Counsel Relationship Specialty Start Date End Date Jessi Dueñas MD [address] [place], [place] [phone] PCP - General Family Medicine 11/24/20 Mikayla Bhagat Media Relations ManagerElectrical Systems Designer 05/09/23 documented as of this encounter
--- OUTSIDE RECORDS SUMMARY | 2024-06-14 15:42 | XMS_ITS | Encounter Summary ---
Author Organization [employer] Address 75 [facility] 7 [place] [address] Care Team Providers Care Paleologist Name Role Phone Jessi Dueñas MD Primary Care Provider [phone] Reason for Visit * Reason Comments Care Coordination C3 -SERGE edwards telephone call outreach Encounter Details Date Type Department Care Team (Latest Contact Info) Description 05/27/2024 Patient Outreach [facility] MEDICINE 230 [place] [address] Jessi Dueñas MD 230 [place] [address] Care Coordination (C3 TOM Doshi telephone call [...] outbound call to patient introducing herself from [facility] CM Department, in regards to offering [...] Wednesdays, and Walk-In Urgent Care Located in [facility]. Patient providedwith after-hours line for [facility], , which offer night time triage service and option to transfer to socially responsible investment adviser provider if needed. Patient verbalizes understanding, and able to repeat back to quality analyst/technical writer. documented in this encounter Plan of Treatment Upcoming Encounters Date Type Department Care Team (Late st Contact Info) Description 07/26/2024 9:45 AM EDT Office Visit [facility] MEDICINE [address] [place] [address] Jessi Dueñas MD [address] [place] [address] documented as of this encounter Visit Diagnoses Not on filedocumented in this encounter Additional Health Concerns Assessment Noted Time PHQ-9 Depression Total Score: 8 09/19/19 24 11:07 AM EDT documented as of this encounter Care Teams Paleologist Relationship Specialty Start Date End Date Jessi Dueñas MD [address] [place] [address] PCP - General Family Medicine 11/24/20 Mikayla Bhagat Retail Merchandising ManagerGardening Supervisor 05/09/23 documented as of this encounter
--- OUTSIDE RECORDS SUMMARY | 2024-06-14 15:42 | XMS_ITS | Encounter Summary ---
Author Organization [employer] Address 75 [facility] 7 [place] [address] Care Team Providers Care Field Artillery Senior Sergeant Name Role Phone Jessi Dueñas MD Primary Care Provider [phone] Reason for Visit * Reason Comments Weight Management Encounter Details Date Type Department Care Team ([facility] st Contact Info) Description 05/17/2024 11:00 AM EST Office Visit [facility] MEDICINE [address] [place] [address] Jessi Dueñas MD [address] [place] [address] Weight loss of more than 10% body [...] the past 12 months, has t he [employer], gas, oil or water [employer] threatened to shut off services in your [...] of medications Psychiatrist is Ainsley Queen at [facility] I am concerned about the potential for Seroquel to cause abnormal movements, she was also previously on Reglan for nausea, and is already on Ropinirole for restless leg syndrome. Sleep study at [facility]: 03/11/24 no KATHARINE, 2.2 periodic leg [...] things, trouble getting dressed. Has [employer] for MANAGER ERP. U tox positive in the ER for cocaine and marijuana 02/06/23. She smokes marijuana daily, from the same dealer. Denies explicit or known use of cocaine. Was buying Tramadol off the street. Saw Rheum with complete serologies 06/29/23 JUANITO positive in low titer 2022, saw rheum 06/2023 Dr Wilson Anxiety/bipolar Has therapist and psych prescriber (Ainsley Queen) at [facility] On Seroquel 400mg daily On Prozac 20mg [...] her youngest daughter, other daughter lives in [place] Has MANAGER ERP, 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 Respiratory: [...] 02, 2024., Disp: 56 tablet, Rfl: 0 Armenian Translation: Provided by [facility] staff member AVINASH Llamas documented [...] Description 07/26/2024 9:45 AM EDT Office Visit [facility] MEDICINE [address] [place] [address] Jessi Dueñas MD [address] [place] [address] documented as of this encounter Visit Diagnoses Diagnosis Weight loss of more than 10% body weight- Primary Post concussion syndrome Postconcussion syndrome Gastroesophageal reflux disease without esophagitis Esophageal reflux Bipolar affective disorder, currently depressed, moderate ([facility]) Bipolar I disorder, most recent episode (or current) depressed, moderate Fibromyalgia Unspecified myalgia and myositis documented in this encounter Additional Health Concerns Assessment Noted Time PHQ-9 Depression Total Score: 8 09/19/19 24 11:07 AM EDT documented as of this encounter Care Teams Field Artillery Senior Sergeant Relationship Specialty Start Date End Date Jessi Dueñas MD [address] [place] [address] PCP - General Family Medicine 11/24/20 Mikayla Bhagat Grinding Machine TenderJig Worker 05/09/23 documented as of this encounter
--- OUTSIDE RECORDS SUMMARY | 2024-06-14 15:42 | XMS_ITS | Encounter Summary ---
Author Organization [employer] [facility] Address 75 [facility] 7t [place] [address] Care Team Providers Care Retail Client Solutions Consultant Name Role Phone Jessi Dueñas MD Primary Care Provider [phone] Encounter Details Date Type Department Care Team (Late Contact Info) Description 03/29/2022 Orders Only [facility] MEDICINE [address] [place] [address] Jessi Dueñas MD [address] [place] [address] [phone] Choking episode occurring at night (Primary Dx) [...] Description 07/26/2024 9:45 AM EDT Office Visit [facility] MEDICINE [address] [place] [phone] Jessi Dueñas MD [address] [place] [address] documented as of this encounter Visit Diagnoses Diagnosis Choking episode occurring at night- Primary documented in this encounter Care Teams Retail Client Solutions Consultant Relationship Specialty Start Date End Date Jessi Dueñas MD [address] [place], [place] [phone] PCP - General Family Medicine 11/24/20 Mikayla Bhagat Molder OffbearerAirbrush Painter 05/09/23 documented as of this encounter
--- OUTSIDE RECORDS SUMMARY | 2024-06-14 15:43 | XMS_ITS | Encounter Summary ---
Author Organization [employer] Address 75 [facility] 7 [place] [address] Care Team Providers Care Tower Dragline Operator Name Role Phone Jessi Dueñas MD Primary Care Provider Reason for Visit * Reason Comments Med Refill Encounter Details Date Type Department Care Team ([facility] st Contact Info) Description 10/25/2023 Refill [facility] MEDICINE [address] [place] [address] Anita Arriaga MD [address] [place] [address] Social History Tobacco Use Types Packs/Day Years [...] Description 07/26/2024 9:45 AM EDT Office Visit [facility] MEDICINE [address] [place] [address] Jessi Dueñas MD [address] [place] [address] documented as of this encounter Visit Diagnoses Not on filedocumented in this encounter Additional Health Concerns Assessment Noted Time PHQ-9 Depression Total Score: 8 09/19/19 24 11:07 AM EDT documented as of this encounter Care Teams Tower Dragline Operator Relationship Specialty Start Date End Date Jessi Dueñas MD [address] [place] [address] PCP - General Family Medicine 11/24/20 Mikayla Bhagat Machine Filler ServicerResidential Real Estate Sales Manager 05/09/23 documented as of this encounter
--- OUTSIDE RECORDS SUMMARY | 2024-06-14 15:43 | XMS_ITS | Encounter Summary ---
Author Organization [facility] Address 75 [facility] 7 [place] [address] Care Team Providers Care Food Vendor Name Role Phone Jessi Dueñas MD Primary Care Provider Reason for Visit * Reason Onset Date Comments Med Refill Tramadol refill denied 10/25/2023 Encounter Details Date Type Department Care Team (Late st Contact Info) Description 10/25/2023 Refill [facility] MEDICINE [address] [place] [address] Jessi Dueñas MD [address] [place] [address] Fibromyalgia Social History Tobacco Use Types Packs/Day [...] can review this. Thank you! TC via P/I#[id number], unable to connect to the number, unable to leave message. Will forward message to PCP's M.A. to schedule a telephone appointment for patient as PCP requested. documented in this encounter Plan of Treatment Upcoming Encounters Date Type Department Care Team (Late st Contact Info) Description 07/26/2024 9:45 AM EDT Office Visit [facility] MEDICINE [address] [place], [place] [phone] Jessi Dueñas MD [address] [place] [address] documented as of this encounter Visit Diagnoses Diagnosis Fibromyalgia Unspecified myalgia and myositis documented in this encounter Additional Health Concerns Assessment Noted Time PHQ-9 Depression Total Score: 8 09/19/19 24 11:07 AM EDT documented as of this encounter Care Teams Food Vendor Relationship Specialty Start Date End Date Jessi Dueñas MD [address] [place] [address] PCP - General Family Medicine 11/24/20 Mikayla Bhagat Hat Lining BlockerElevator Installer 05/09/23 documented as of this encounter
--- OUTSIDE RECORDS SUMMARY | 2024-06-14 15:43 | XMS_ITS | Encounter Summary ---
Author Organization [employer] Address 75 [facility] 7t [place] [address] Care Team Providers Care Gas Meter Repair Supervisor Name Role Phone Jessi Dueñas MD Primary Care Provider [phone] Encounter Details Date Type Department Care Team ([facility] st Contact Info) Description 06/14/2024 Orders Only [facility] MEDICINE [address] [place], [place] [phone] Jessi Dueñas MD [address] [place], [place] [phone] Restless leg syndrome Social History Tobacco Use Types Packs/Day Years [...] Description 07/26/2024 9:45 AM EDT Office Visit [facility] MED[facility]INE [address] [place] [address] Jessi Duñeas MD [address] [place] [address] documented as of this encounter Visit Diagnoses Diagnosis Restless leg syndrome Restless legs syndrome (RLS) documented in this encounter Additional Health Concerns Assessment Noted Time PHQ-9 Depression Total Score: 8 09/19/19 24 11:07 AM EDT documented as of this encounter Care Teams Gas Meter Repair Supervisor Relationship Specialty Start Date End Date Jessi Dueñas MD [address] [place] [address] PCP - General Family Medicine 11/24/20 Mikayla hBagat Sales LeaderBee Rancher 05/09/23 documented as of this encounter
--- OUTSIDE RECORDS SUMMARY | 2024-06-14 15:43 | XMS_ITS | Encounter Summary ---
Author Organization [employer] Address 75 [facility] 7t [place] [address] Care Team Providers Care Rug Cleaning Supervisor Name Role Phone Jessi Dueñas MD Primary Care Provider [phone] Encounter Details Date Type Department Care Team ([facility] st Contact Info) Description 06/14/2024 Population Health Risk Score [facility] () Department 75 [facility] 7 [place] [address] Provider, Population Health Generic Social History Tobacco Use Types Packs/Day Years [...] Office Visit [facility] MEDICINE 230 [place] [address] Jessi Dueñas MD [address] [place] [address] documented as of this encounter Visit Diagnoses Not on filedocumented in this encounter Additional Health Concerns Assessment Noted Time PHQ-9 Depression Total Score: 8 09/19/19 24 11:07 AM EDT documented as of this encounter Care Teams Rug Cleaning Supervisor Relationship Specialty Start Date End Date Jessi Dueñas MD [address] [place] [address] PCP - General Family Medicine 11/24/20 Mikayla Bhagat Top CloserNuclear Engineering Technician 05/09/23 documented as of this encounter
--- OUTSIDE RECORDS SUMMARY | 2024-06-14 15:43 | XMS_ITS | Encounter Summary ---
Author Organization [employer] Address 75 [facility] 7t [place] [address] Care Team Providers Care Secondary School Principal Name Role Phone Jessi Dueñas MD Primary Care Provider [phone] Reason for Visit * Reason Comments Med Refill Encounter Details Date Type Department Care Team ([facility] st Contact Info) Description 06/08/2024 Refill [facility] MED[facility]INE [address] [place] [address] Jessi Dueñas MD [address] [place] [address] Social History Tobacco Use Types Packs/Day Years [...] 9:45 AM EDT Office Visit [facility] MEDICINE [address] [place] [address] Jessi Dueñas MD [address] [place] [address] documented as of this encounter Visit Diagnoses Not on filedocumented in this encounter Additional Health Concerns Assessment Noted Time PHQ-9 Depression Total Score: 8 09/19/19 24 11:07 AM EDT documented as of this encounter Care Teams Secondary School Principal Relationship Specialty Start Date End Date Jessi Dueñas MD [address] [place] [address] PCP - General Family Medicine 11/24/20 Mikayla Bhagat Dust Collector TreaterPipe Threading Machine Operator 05/09/23 documented as of this encounter
== END 2024-06-14 14:50 | disposition home or self-care (01) ==
LOC: HO.HGI 13:59
PROVIDERS: PCP General Practice; Visit Provider Nurse Practitioner Family
DX: R10.84 Generalized abdominal pain (principal); R11.2 Nausea with vomiting, unspecified; R63.4 Abnormal weight loss; K21.9 Gastro-esophageal reflux disease without esophagitis; R14.0 Abdominal distension (gaseous); K58.0 Irritable bowel syndrome with diarrhea; R10.13 Epigastric pain; K59.01 Slow transit constipation
CPT/HCPCS: 99214

== ENCOUNTER → 2024-06-14 13:58 | Outpatient (BNVA) | payer MEDICAID, SELFPAY | PROVIDERS: PCP General Practice; Visit Provider Nurse Practitioner Family | DX: K21.9 Gastro-esophageal reflux disease without esophagitis (principal); K58.0 Irritable bowel syndrome with diarrhea; R11.2 Nausea with vomiting, unspecified; K58.1 Irritable bowel syndrome with constipation; K59.01 Slow transit constipation; R10.84 Generalized abdominal pain; R63.4 Abnormal weight loss; R14.0 Abdominal distension (gaseous) | CPT/HCPCS: 99212 ==

== ENCOUNTER 2024-06-19 11:20 | Outpatient (REF) | payer MEDICAID, SELFPAY ==
[2024-06-20 03:47] LABS: CT PCR NOT DETECTED (Not Detect.); NG PCR NOT DETECTED (Not Detect.)
[2024-06-20 13:03] LABS: Bacterial Vaginosis PCR POSITIVE (Negative); Candida Group PCR NOT DETECTED (Not Detect); Candida glab krusei PCR NOT DETECTED (Not Detect); Trichomonas vaginalis PCR NOT DETECTED (Not Detect)
== END 2024-06-19 11:21 | disposition home or self-care (01) ==
LOC: HO.LAB 11:20
PROVIDERS: PCP General Practice; Visit Provider Advanced Practice Midwife
DX: Z30.431 Encounter for routine checking of intrauterine contraceptive device (principal); R10.84 Generalized abdominal pain; N89.8 Other specified noninflammatory disorders of vagina; Z20.2 Contact with and (suspected) exposure to infections with a predominantly sexual mode of transmission
CPT/HCPCS: 81515; 87491; 87591; 99212

== ENCOUNTER 2024-06-19 11:20 | Outpatient (AMB) | payer MEDICAID, SELFPAY ==
--- NOTE | 2024-06-19 11:42 | MHC.OFFVIS ---
Vital Signs 06/19/24 11:47 Height 5 ft 7 in Weight 116 lb BMI 18.2 BP 110/64 Intake Visit Reasons: IUD Check Page Makeup System Operator Required: Yes Page Makeup System Operator Language: Human Resources Office Assistant Services: Page Makeup System Operator Present (In person) Office Workforce Planner: Office Workforce Planner Present (Darshana) Accompanied by: Friend Allergies cephalexin [From Keflex] Allergy (Intermediate, Verified 06/19/24 11:50) Eye Swelling morphine Allergy (Intermediate, Verified 06/19/24 11:50) Itching shellfish derived [SHELLFISH DERIVED] Allergy (Intermediate, Verified 06/19/24 11:50) swelling Medication List - Last Reconciled 06/19/24 by Lindsey Zuñiga CNM albuterol sulfate 2.5 mg inhalation Q4-6H calcium carbonate (Antacid Ext Str (calcium carb)) 1 - 2 tabs PO DIRECTED cholecalciferol (vitamin D3) 50 mcg PO QAM clonazepam 1 mg PO TID PRN cyproheptadine 4 mg PO BID diphenhydramine HCl (Banophen) 25 - 50 mg PO BEDTIME PRN esomeprazole magnesium (Nexium) 40 mg PO DAILY famotidine 20 mg PO QPM fluoxetine 40 mg PO QAM fluticasone propionate 220 mcg/actuation (Flovent HFA) 1 puff inhalation BID imipramine HCl 50 mg PO BEDTIME Lactobacillus acidoph-L.bulgar 1 million cell 1 tab PO QAM levonorgestrel (Mirena) intrauterine loperamide 4 mg (2 x 2 mg) PO TID PRN loratadine (Allergy Relief (loratadine)) 10 mg PO DAILY magnesium hydroxide (Milk of Magnesia) 5 mL PO BEDTIME methylcellulose (laxative) (Citrucel) 500 mg PO BID mometasone 200 mcg/actuation (Asmanex HFA) 1 puff inhalation BID montelukast 10 mg PO QPM multivit-iron sulf-folic acid 15 mg iron- 400 mcg (Tab-A-Kisha Multivitamin w-iron) 1 tab PO QAM ondansetron 8 mg PO Q12H PNV,calcium 54-[id number]-ezmxm acid 27 mg iron- 1 mg ( Vitamins Plus Low Iron) 1 tab PO QAM quetiapine 300 mg PO BEDTIME quetiapine 100 mg PO BID PRN riboflavin (vitamin B2) (Vitamin B-2) 400 mg PO DAILY ropinirole 4 mg PO BEDTIME sennosides (Natural Senna Laxative) 17.2 mg (2 x 8.6 mg) PO BEDTIME sucralfate 10 mL PO BEDTIME topiramate 25 mg PO BEDTIME tramadol 50 mg PO Q12H PRN Is last menstrual period known: No Post menopausal: No Patient : No HPI HPI IUD Check: Details: Patient is here with her very close friend and SENIOR ADMINISTRATIVE ASSOCIATE is eating with translation today. The patient and I communicated very much in Croatian he would translate to clarify to be sure she understood. Patient has a Mirena IUD she thought that had it been in since around 2010 or 2011 she does not have a memory today of it being replaced she has had a lot of medical issues mostly gastrointestinal and has an extensive GI history and has care provider's in the gastroenterology office that she sees regularly to she says that she saw her primary care provider Dr. Jessi Garces at the [facility] last year and Dr. Jessi Cuenca and did her Pap smear so that is why she did not return for Pap smear with us. She does not know really what happened with the pelvic ultrasound that I had ordered and that appeared to be scheduled for sometime in May or June of 2023 and then got canceled. She presents today because yesterday she started with lower back cramping and abdominal cramping and pain and light bleeding when a brownish discharge. She has the IUD because it was to stop her period. She had her tubes tied in the past. [facility] Medical History (Updated 06/19/24 @ 12:50 by Lindsey Zuñiga CNM) Diarrhea C. difficile colitis Asthma GERD (gastroesophageal reflux disease) Bipolar disorder Anxiety and depression Constipation Diarrhea Surgical History (Updated 06/19/24 @ 12:52 by Lindsey Zuñiga CNM) History of esophagogastroduodenoscopy (EGD) H/O colonoscopy History of tubal ligation History of section Family History Family/Other Cancer Other Family history of arthritis Social History Alcohol intake: never Patient Tobacco Use Status: Former Tobacco user Tobacco use type: Cigarette Substance Use Type: Marijuana Patient : No Female Reproductive History Menstrual Age of Menarche: 17 control method: progestin IUCD (Mirena ) Total pregnancies: 2 Full term: 2 Date of last pap smear: 01/24/29 Date of Mammogram: 09/28/23 (bi rad 1) Physical Exam Vital Signs: Last Vital Signs BP 110/64 06/19/24 11:47 BMI result Body Mass Index 18.2 Other: Patient is extremely slender with thin frame vagina pink and moist with light menstrual type bleeding cervix is nulliparous pink tightly closed with Mirena strings easily visible uterus is small midposition to anteverted mobile nontender very easy to palpate and the adnexa are easy to palpate as well and nontender nonenlarged she has very good tone with Kegel. External Female Exam: normal external appearance Speculum Exam - Vagina: normal appearance of the vagina and normal vaginal discharge Speculum Exam - Cervix: normal appearance of the cervix Bimanual exam- vagina & uterus: normal bimanual exam, uterine size normal, consistency normal, uterine mobility normal, uterine shape normal and non-tender Bimanual Exam- Adnexa, other: normal adnexae, no masses and No adnexal tenderness Assessment & Plan Assessment & Plan (1) Abdominal pain: Code(s): R10.9 - Unspecified abdominal pain Category: Medical Qualifiers: Abdominal location: generalized Qualified Code(s): R10.84 - Generalized abdominal pain (2) Presence of 52 mg levonorgestrel-releasing intrauterine device (IUD): Comment: inserted 06/08/17 by GL, for menstrual issues.(has BTL); nulliparous tightly closed cervix history of multiple GI issues we will need to plan carefully for replacement of Mirena... Code(s): Z97.5 - Presence of (intrauterine) contraceptive device Category: Medical (3) Irritable bowel syndrome with diarrhea: Comment: Has history of multiple issues including H pylori and C difficile.-discussed caution with use of the knee antibiotics that could be prescribed by any provider not aware of her entire history...MO'B Code(s): K58.0 - Irritable bowel syndrome with diarrhea Category: Medical (4) History of section: Comment: Has a tightly closed nulliparous cervix... Code(s): Z98.891 - History of uterine scar from previous surgery Category: Medical (5) History of tubal ligation: Code(s): Z98.51 - Tubal ligation status Category: Medical Plan Difficult to figure out initially why follow-up ultrasound that I ordered last year was never done but it is appeared to be canceled in the system and it is unclear why regardless patient has had multiple other tests and interventions throughout the last year.. Patient believe that this IUD was placed in 2010 or 2011 in his been in there for very long time and she definitely had it put in for helping with her heavy painful menses she had her tubes tied in the past though she does raise the question of whether or not she could get again discussed briefly that it would take it tubal ligation referral and it might prove challenging with all of her other health issues and it would not be paid for by her insurance. I found in the record from research done last year in [facility], that her IUD was placed on 06/08/[address] Mckeon. Discussed with the patient that perhaps she does not remember it being replaced at a visit because that would of been the time for her original want her been replaced. Regardless now it is 7 years so it is probably coming up to the time to replace it anyway and my guess is that she is actually getting a light period And that is what is she is experiencing now with its attendant normal cramping. I am ordering an ultrasound just to verify things but I am not anticipating that we will find any pathology whatsoever. And then we will have a visit after and discuss replacing the IUD discussed that with her many medical challenges and GI concerns and pain it maybe uncomfortable. I am thinking that she very well may need pre dosing with misoprostol however she is prone to diarrhea and she is very sensitive to pain so we will have to plan carefully and if she is then getting regular menses it definitely should be done at the beginning of a period. Her cervix is not at all softened or open today though and it is at the start of a light menses. Testing done for gonorrhea chlamydia trichomoniasis as well as BV and yeast I have no worries about infection I did discuss with her that bacterial vaginosis shows up in many of our tests and it is often present when somebody is having vaginal bleeding or menses. Discussed that if somebody calls her to let her know about this I would recommend to her that she not accept the offer of the p.o. Flagyl as with her medical conditions it would prove to be very challenging to take and it may upset her GI juan and balance and if she does needed treatment the most she should consider in this case of no abnormal discharge would be the metronidazole gel. We discussed this in great detail and her SENIOR ADMINISTRATIVE ASSOCIATE friend also translated it as well discussed that even though Flagyl is used to treat C diff with her particular GI issues she wants to be careful with any antibiotic she takes and do not take them unnecessarily. Pelvic ultra Follow-up visit after to discuss results and plan for Mirena replaced Orders: Orders US pelvic and transvaginal Today R10.84 - Generalized abdominal pain, Z97.5 - Presence of (intrauterine) contraceptive device Coding Level of Care Code Est Pt Level 3 (82252) Diagnoses Generalized abdominal pain R10.84 Abdominal location: generalized Presence of 52 mg levonorgestrel-releasing intrauterine device (IUD) Z97.5 Irritable bowel syndrome with diarrhea K58.0 History of section Z98.891 History of tubal ligation Z98.51 Time Spent (min) 45 Comment Most of visit spent discussing patient's history to her recollection and comparing to what
[2024-06-19 11:47] VITALS: BP 110/64; BMI 18.2
--- OUTSIDE RECORDS SUMMARY | 2024-06-19 13:54 | XMS_ITS | Encounter Summary ---
Author Organization [employer] Address 75 [facility] 7 [place] [address] Care Team Providers Care Catalytic Converter Operator Name Role Phone Jessi Dueñas MD Primary Care Provider [phone] Reason for Visit * Reason Onset Date Comments Med Refill 05/29/2024 Encounter Details Date Type Department Care Team ([facility] st Contact Info) Description 05/29/2024 Telephone [facility] MEDICINE [address] [place], [place] [phone] Jessi Dueñas MD [address] [place], [place] [phone] Med Refill Social History Tobacco Use Types [...] 4 MG tablet To be sent to: [facility] pharmacy documented in this encounter Plan of Treatment Upcoming Encounters Date Type Department Care Team (Late st Contact Info) Description 07/26/2024 9:45 AM EDT Office Visit [facility] MEDICINE [address] [place] [address] Jessi Dueñas MD [address] [place] [address] documented as of this encounter Visit Diagnoses Not on filedocumented in this encounter Additional Health Concerns Assessment Noted Time PHQ-9 Depression Total Score: 8 06/18/20 24 11:07 AM EDT documented as of this encounter Care Teams Catalytic Converter Operator Relationship Specialty Start Date End Date Jessi Dueñas MD [address] [place] [address] PCP - General Family Medicine 11/24/20 Mikayla Bhagat Push Connector AssemblerComputer Methods Analyst 05/09/23 documented as of this encounter
--- OUTSIDE RECORDS SUMMARY | 2024-06-19 13:54 | XMS_ITS | Encounter Summary ---
Author Organization [employer] Address 75 [facility] 7 [place] [address] Care Team Providers Care Manager Wound Care Name Role Phone Jessi Dueñas MD Primary Care Provider [phone] Reason for Visit * Reason Comments Transition Of Care (Tcm) ERRORr Encounter Details Date Type Department Care Team ([facility] st Contact Info) Description 05/28/2024 Patient Outreach [facility] MEDICINE [address] [place] [address] Jessi Dueñas MD [address] [place] [address] Transition Of Care (Tcm) (ERRORr) Social History [...] 9:45 AM EDT Office Visit [facility] MEDICINE [address] [place] [address] Jessi Dueñas MD [address] [place] [address] documented as of this encounter Visit Diagnoses Not on filedocumented in this encounter Additional Health Concerns Assessment Noted Time PHQ-9 Depression Total Score: 8 09/19/19 24 11:07 AM EDT documented as of this encounter Care Teams Manager Wound Care Relationship Specialty Start Date End Date Jessi Dueñas MD [address] [place] [address] PCP - General Family Medicine 11/24/20 Mikayla Bhagat Magician HelperSupplier Specialist 05/09/23 documented as of this encounter
--- OUTSIDE RECORDS SUMMARY | 2024-06-19 13:54 | XMS_ITS | Encounter Summary ---
Author Organization [employer] Address 75 [facility] 7 [place] [address] Care Team Providers Care Demurrage Worker Name Role Phone Jessi Dueñas MD Primary Care Provider [phone] Reason for Visit * Reason Onset Date Comments Med Refill 05/29/2024 Encounter Details Date Type Department Care Team ([facility] st Contact Info) Description 05/29/2024 Refill [facility] MEDICINE [address] [place] [address] Jessi Dueñas MD [address] [place], [place] [phone] Fibromyalgia Social History Tobacco Use Types Packs/Day [...] 50 MG tablet To be sent to: [facility] documented in this encounter Plan of Treatment Upcoming Encounters Date Type Department Care Team (Late st Contact Info) Description 07/26/2024 9:45 AM EDT Office Visit [facility] MEDICINE [address] [place] [address] Jessi Dueñas MD [address] [place] [address] documented as of this encounter Visit Diagnoses Diagnosis Fibromyalgia Unspecified myalgia and myositis documented in this encounter Additional Health Concerns Assessment Noted Time PHQ-9 Depression Total Score: 8 09/19/19 24 11:07 AM EDT documented as of this encounter Care Teams Demurrage Worker Relationship Specialty Start Date End Date Jessi Dueñas MD [address] [place] [address] PCP - General Family Medicine 11/24/20 Mikayla Bhagat Ground Support AgentConflict Resolution Professional 05/09/23 documented as of this encounter
--- OUTSIDE RECORDS SUMMARY | 2024-06-19 13:54 | XMS_ITS | Encounter Summary ---
Author Organization [employer] Address [address] [facility] [address] [place] [address] Care Team Providers Care Incident Response Manager Name Role Phone Jessi Dueñas MD Primary Care Provider [phone] Encounter Details Date Type Department Care Team (Late st Contact Info) Description 05/30/2024 Orders Only [facility] External Provider, [facility] Social History Tobacco Use Types Packs/Day Years [...] t he electric, gas, oil or water [employer] threatened to shut off services in your [...] Description 07/26/2024 9:45 AM EDT Office Visit [facility] MEDICINE [address] [facility] [place] [address] Jessi Dueñas MD [address] [place] [address] documented as of this encounter Procedures Procedure Name Priority Date/Time Associated Diagnosis Comments MR MRCP Routine 05/30/2024 7:29 AM EST documented in this encounter Results * MR MRCP (05/30/2024 7:29 AM EST) Anatomical Region Laterality Modality Lower Extremities Left Magnetic Reson ance 05/30/2024 7:29 AM EST Narrative 05/30/2024 8:24 AM EST ? [facility] ?[address] ?[place] [address] ? Magnetic Resonance Report ? Signed ? Patient: Kera Armstrong ?MR#: [id number] ?? [id number] ? : 1980 ?Acct:[id number] ? Age/Sex: 43 / F ?ADM Date: 02/27/25 ? Loc: HO.MRI ? Attending Dr: Ashley AZEVEDO ? Ordering Physician: Ashley Duncan ?? Date of Service: 05/30/24 ?? Procedure(s): MR MRCP ?? Accession Number(s): [id number] ? cc: Jessi Dueñas; Ashley Duncan ? [...] DD/ 8 ? TD/TT: 05/30/24 0805 ? Loader Technician: ? Procedure Note Eloy Benoit - 05/30/[address] [address] Magnetic Resonance Report Signed Patient: Kera Armstrong#: [id number] : 1980Acct:[id number] Age/Sex: 43 / FADM Date: 05/30/24 Loc: HO.MRI Attending Dr: Ashley Duncan FUEL SYSTEM MAINTENANCE SUPERVISORCHIL[facility] Ordering Physician: Ashley Duncan Date of Service: 05/30/24 Procedure(s): MR MRCP Accession Number(s): [id number] cc: Jessi Dueñas; Ashley Duncan EXAMINATION: MRCP [...] by: Everett Rich MD 05/30/2024 08:21 AM [facility] Dictated By: Everett Rich MD Signed By: <Electronically signed by Everett Rich MD in OV> 05/30/24 0821 DD/ 0729 TD/TT: 05/30/24 0805 Loader Technician: [facility] External Provider IMG MRI PROCEDURES Final Result documented in this encounter Visit Diagnoses Not on filedocumented in this encounter Additional Health Concerns Assessment Noted Time PHQ-9 Depression Total Score: 8 09/19/19 24 11:07 AM EDT documented as of this encounter Care Teams Incident Response Manager Relationship Specialty Start Date End Date Jessi Dueñas MD [address] [place] [address] PCP - General Family Medicine 11/24/20 Mikayla Bhagat Water Reclamation Systems OperatorSterile Preparation Technician 05/09/23 documented as of this encounter
--- OUTSIDE RECORDS SUMMARY | 2024-06-19 13:54 | XMS_ITS | Encounter Summary ---
Author Organization [employer] Address 75 [facility] 7 [place] [address] Care Team Providers Care Director Of Grants Name Role Phone Jessi Dueñas MD Primary Care Provider [phone] Reason for Visit * Reason Comments Transition Of Care (Tcm) ED visit reques felecia Encounter Details Date Type Department Care Team ([facility] st Contact Info) Description 05/29/2024 Patient Outreach [facility] MEDICINE [address] [place] [address] Jessi Dueñas MD [address] [place] [address] Transition Of Care (Tcm) (ED visit requested) [...] visit. Was transferred to HDF line but senior technical writer unable to schedule HDF . [facility] attempted to schedule 15 minute ED visit but patient is also requesting to be seen by PCP . Please contact patient with follow up . * Mary Hurtado RN - 05/29/2024 2:40 PM EST TC placed to patient [phone] in regards to below message. Patient reports she was seen at [facility] ED on 05/26/24 for vomiting, diarrhea, nausea and fatigue. Patient reports she continues to feel the same. Patient reports last vomited yesterday and has had diarrhea x4 today. Patient reports continued nausea. Patient was discharged from [facility] ED without any medications. Patient reports she is following the BRAT diet at this time. Patient follows with [facility] GI and reports she has a f/u [...] also does not want to come to [facility] as she reports she was seen on 05/25/24 and they recommended patient go to ED and f/u with GI. RN advised patient to call [facility] and inform of ED visit and [...] Description 07/26/2024 9:45 AM EDT Office Visit [facility] MEDICINE [address] [place] [address] Jessi Dueñas MD [address] [place] [address] documented as of this encounter Visit Diagnoses Not on filedocumented in this encounter Additional Health Concerns Assessment Noted Time PHQ-9 Depression Total Score: 8 09/19/19 24 11:07 AM EDT documented as of this encounter Care Teams Director Of Grants Relationship Specialty Start Date End Date Jessi Dueñas MD [address] [place] [address] PCP - General Family Medicine 11/24/20 Mikayla Bhagat A And P TechnicianWorkforce Manager 05/09/23 documented as of this encounter
--- OUTSIDE RECORDS SUMMARY | 2024-06-19 13:54 | XMS_ITS | Encounter Summary ---
Author Organization [employer] Address [address] [facility] 7t [place] [address] Care Team Providers Care Machine Rough Rounder Name Role Phone Jessi Dueñas MD Primary Care Provider [phone] Reason for Referral * Consultation (Routine) - Closed Specialty Diagnoses / Procedures Referred By Contac t Referred To Contact Physical Therapy Diagnoses Acute bilateral low back pain without sciatica Chronic pain of both knees Bilateral hand pain Jessi Dueñas MD [address] [place] [address] Phone: tel: fax: [facility] [address] [facility] 1st [place], [place] Phone: tel: fax: Referral ID Status Reason Start Date Expiration Date V isits Requested Visits Authorized [id number] Closed Specialty Services Required 04/17/2024 04/17/2025 20 20 Encounter Details Date Type Department Care Team (Late st Contact Info) Description 04/17/2024 Orders Only [facility] MEDICINE [address] [place] [address] [phone] Jessi Dueñas MD [address] [place], [place] [phone] Acute bilateral low back pain without sciatica [...] 07/26/2024 9:45 AM EDT Office Visit [facility] MEDICINE [address] [place] [address] Jessi Dueñas MD [address] [place] [address] Scheduled Referrals Name Type Priority Associated Diagnoses [...] documented as of this encounter Care Teams Machine Rough Rounder Relationship Specialty Start Date End Date Jessi Dueñas MD [address] [place] [address] PCP - General Family Medicine 11/24/20 Mikayla Bhagat Sand Caster ApprenticeNondestructive Tester 05/09/23 documented as of this encounter
--- OUTSIDE RECORDS SUMMARY | 2024-06-19 13:55 | XMS_ITS | Encounter Summary ---
Author Organization [employer] [facility] Address [address] [facility] 7 [place] [address] Care Team Providers Care Fullerette Name Role Phone Jessi Dueñas MD Primary Care Provider [phone] Reason for Visit * Reason Onset Date Comments Medication Question 06/12/2024 Med Refill 06/12/2024 Encounter Details Date Type Department Care Team ([facility] st Contact Info) Description 06/12/2024 Telephone [facility] MEDICINE [address] [place] [address] Jessi Dueñas MD [address] [place], [place] [phone] Medication Question; Med Refill Social History Tobacco [...] - 06/14/2024 10:52 AM EDT Pt and CATTLE DEHORNER presented to the Red Team front office secretary requesting an early refill on the prescribed Ropinirole 4 MG medication. CATTLE DEHORNER is aware of the caution that ws given by PCP to not take more than one pill a night. CATTLE DEHORNER confirms that he now knows the maximum dose is 4 mg daily. CATTLE DEHORNER just needs an early refill to get the pt through the next week as there are only four pills left. Pt would like to continue on 4 MG once daily and not 2 2 MG tabs as suggested by PCP. Pt advised this will be sent high priority to provider for review and advisement. * Telephone Encounter - Iona Jorge RN - 06/12/2024 2:59 PM EDT Incoming phone call from pt and pt's CATTLE DEHORNER haris Carrasco gave verbal consent to speak with CATTLE DEHORNER. Advised pt that per PCP, she can only take max 4mg (1 pill) of ropinirole per day. Advised pt that PCP could prescribe 2mg tablets if she prefers to take 2 tablets, however pt declined. Pt/CATTLE DEHORNER stated she had only been taking 2 [...] be contributing to jerky movements. Pt and CATTLE DEHORNER verbalized understanding, no further questions. * Telephone Encounter - Iona Jorge RN - 06/12/2024 2:25 PM EDT Telephone call returned to pt to advise of below message. No answer, left voicemail to call back [facility]. Will task to call again. -- [...] jerking movements. * Telephone Encounter - Iona Jorge RN - 06/12/2024 12:46 PM EDT Telephone call to pt who gave verbal consent to speak with pt's Danilo COELHO who translated. They arelooking for PCP's input on ropinirole prescription (frequency). Per pt/CATTLE DEHORNER, pt takes 1 pill at around 10pm when she goes to bed and she already has restless legs , then report at night she still hasrestless legs & sometimes takes a 2nd pill in the night. Per pt, she has been taking 2 pills since beginning of June. CATTLE DEHORNER states he is in the home 24/10 and watches the pt's legs kicking and twitching all night. Pt/CATTLE DEHORNER states that the doctor told us it's [...] be prescribed more Pills. Contact pt at [phone] documented in this encounter Plan of Treatment Upcoming Encounters Date Type Department Care Team (Late st Contact Info) Description 07/26/2024 9:45 AM EDT Office Visit [facility] MEDICINE [address] [place] [address] Jessi Dueñas MD [address] [place] [address] documented as of this encounter Visit Diagnoses Not on filedocumented in this encounter Additional Health Concerns Assessment Noted Time PHQ-9 Depression Total Score: 8 09/19/19 24 11:07 AM EDT documented as of this encounter Care Teams Fullerette Relationship Specialty Start Date End Date Jessi Dueñas MD [address] [place] [address] PCP - General Family Medicine 11/24/20 Mikayla Bhagat Tin WorkerHealth And Wellness Instructor 05/09/23 documented as of this encounter
--- OUTSIDE RECORDS SUMMARY | 2024-06-19 13:55 | XMS_ITS | Encounter Summary ---
Author Organization [employer] Address [address] [facility] [address] 7t [place] [address] Care Team Providers Care Airbrush Painter Name Role Phone Jessi Dueñas MD Primary Care Provider [phone] Encounter Details Date Type Department Care Team ([facility] st Contact Info) Description 09/22/2023 Orders Only [facility] MEDICINE [address] [place], [place] [phone] Jessi Dueñas MD [address] [place], [place] [phone] Social History Tobacco Use Types Packs/Day Years [...] Office Visit [facility] MEDICINE [address] [place] [address] Jessi Dueñas MD [address] [place] [phone] documented as of this encounter Visit Diagnoses Not on filedocumented in this encounter Additional Health Concerns Assessment Noted Time PHQ-9 Depression Total Score: 8 09/19/19 24 11:07 AM EDT documented as of this encounter Care Teams Airbrush Painter Relationship Specialty Start Date End Date Jessi Dueñas MD [address] [place] [phone] PCP - General Family Medicine 11/24/20 Mikayla Bhagat Contracting EngineerSap Analyst 05/09/23 documented as of this encounter
--- OUTSIDE RECORDS SUMMARY | 2024-06-19 13:55 | XMS_ITS | Encounter Summary ---
Author Organization [employer] [facility] Address [address] [facility] 7t [place] [address] Care Team Providers Care Junior Qa Analyst Name Role Phone Jessi Dueñas MD Primary Care Provider [phone] Reason for Visit * Reason Comments Vomiting Diarrhea Encounter Details Date Type Department Care Team ([facility] st Contact Info) Description 05/25/2024 9:40 AM EST Office Visit [facility] [address] [place] [address] [phone] Name, MD Ignacio [address] [place] [phone] Diarrhea, unspecified type (Primary Dx); Nausea and [...] Negative, Indeterminate Negative QC Media Lot # [id number] Rapid COVID Ag Negative Assessment/Plan Diagnoses and [...] 07/26/2024 9:45 AM EDT Office Visit [facility] MEDICINE [address] [place] [address] Jessi Dueñas MD [address] [place] [address] documented as of this encounter Procedures Procedure [...] BOYER ID NOW (05/25/2024 9:52 AM EST) [facility] Influenza B Negative Negative, Indeterminate [facility] QC Media Lot # [id number] [facility] Lot# Expiration Date [facility] Swab 05/25/2024 9:52 AM EST us Ignacio Rivera MD POINT OF CARE TEST ENTER/EDIT OR DERABLES Final Result [facility] [address] [place] [address] [phone] * POCT Rapid Covid-19 BinaxNOW (05/25/2024 9:51 AM EST) [facility] Rapid COVID Ag Negative QC Media Lot # [id number] Lot# Expiration Date Swab 05/25/2024 9:51 AM EST us Ignacio Rivera MD POINT OF CARE TEST ENTER/EDIT OR DERABLES Final Result * POCT Rapid Influenza A BOYER ID NOW (05/25/2024 9:51 AM EST) Influenza A Negative Negative, Indeterminate [facility] QC Media Lot # [id number] [facility] Lot# Expiration Date [id number] [facility] Swab 05/25/2024 9:51 AM EST Ignacio Name POINT OF CARE TEST ENTER/EDIT OR DERABLES Final Result Performing Organization Address City/State/[facility] Co de Phone Number [facility] [address] [place] [phone] documented in this encounter Visit Diagnoses Diagnosis Diarrhea, unspecified type- Primary Nausea and vomiting, unspecified vomiting type documented in this encounter Additional Health Concerns Assessment Noted Time PHQ-9 Depression Total Score: 8 09/19/19 24 11:07 AM EDT documented as of this encounter Care Teams Junior Qa Analyst Relationship Specialty Start Date End Date Jessi Dueñas MD [address] [place] [address] PCP - General Family Medicine 11/24/20 Mikayla Bhagat Machine BrusherCity Carrier Assistant 05/09/23 documented as of this encounter
--- OUTSIDE RECORDS SUMMARY | 2024-06-19 13:55 | XMS_ITS | Encounter Summary ---
Author Organization [employer] [facility] Address [address] [facility] 7 [place] [address] Care Team Providers Care Guest House Manager Name Role Phone Jessi Dueñas MD Primary Care Provider [phone] Reason for Visit * Reason Comments Care Coordination C3 -SERGE edwards telephone call outreach Encounter Details Date Type Department Care Team (Latest Contact Info) Description 05/30/2024 Patient Outreach [facility] MEDICINE [address] [place] [address] Jessi Dueñas MD [address] [place] [address] Care Coordination (C3 TYRA-SEREG Doshi telephone call outreach) Social History Tobacco [...] outbound call to patient introducing herself from [facility] CM Department, in regards to remind patient [...] Visit [facility] MEDICINE [address] [place] [address] Jessi Dueñas MD [address] [place] [address] documented as of this encounter Visit Diagnoses Not on filedocumented in this encounter Additional Health Concerns Assessment Noted Time PHQ-9 Depression Total Score: 8 09/19/19 24 11:07 AM EDT documented as of this encounter Care Teams Guest House Manager Relationship Specialty Start Date End Date Jessi Dueñas MD [address] [place] [address] PCP - General Family Medicine 11/24/20 Mikayla Bhagat Criminal Defense AttorneyTelephone Lineman 05/09/23 documented as of this encounter
--- OUTSIDE RECORDS SUMMARY | 2024-06-19 13:55 | XMS_ITS | Encounter Summary ---
Author Organization [employer] Address [address] [facility] 7t [place] [address] Care Team Providers Care Splicing Machine Operator Automatic Name Role Phone Jessi Dueñas MD Primary Care Provider [phone] Encounter Details Date Type Department Care Team [...] t he electric, gas, oil or water [employer] threatened to shut off services in your [...] Upcoming Encounters Date Type Department Care Team ([facility] st Contact Info) Description 07/26/2024 9:45 AM EDT Office Visit [facility] MEDICINE [address] [place] [address] [phone] Jessi Dueñas MD [address] [place], [place] [phone] documented as of this encounter Procedures Procedure [...] PM EST) Influenza A PCR NEGATIVE Negative [facility] Influenza B PCR NEGATIVE Negative [facility] Resp Syncy Virus RNA Qual PCR NEGATIVE Negative [facility] SARS COV2 PCR NEGATIVE Negative [facility] Comment:All test results mus t be [...] use by authorized laboratories.Testing performed on the [employer] GeneXpert utilizingreal-time RT-PCR.All SARS CoV2 and positive influenza A/B results arereported to [facility]. 05/25/2024 11:5 9 PM EST 05/26/2024 12:02 AM EST Generic External Data Provider LAB MICROBIOLOGY - GENERAL ORDERABLES Final Result [facility] [address] [place] [phone] * hCG, Total, Quantitative (05/25/2024 11:59 PM EST) HCG Quantitative <2 mIU/mL [facility] Comment:Weeks post LMP Appro ximate hCG(Last Menstrual Period) Range (mIU/ml)3 - 4 weeks 9 - 1304 - 5 weeks 75 - 2,6005 - 6 weeks 850 - 20,8006 - 7 weeks 4000 - 100,2007 - 12 weeks 11,500 - 289,14891 - 16 weeks 18,300 - 137,11774 - 29 weeks (2nd trimester) 1,400 - 53,26243 - 41 weeks (3rd trimester) 940 - [...] ORDERAB LES Final Result Performing Organization Address [facility] Co de Phone Number [facility] [address] [place] [phone] * Lipase (05/25/2024 11:59 PM EST) Pathologist [facility] Lipase 33 8 - 78 U/L [facility] 05/25/2024 11:5 9 PM EST 05/26/2024 12:02 AM EST us Generic External Data Provider LAB BLOOD ORDERAB LES Final Result Performing Organization Address [facility] Co de Phone Number [facility] [address] [place] [phone] * Magnesium (05/25/2024 11:59 PM EST) Pathologist [facility] Magnesium 2.0 1.6 - 2.6 mg/dL [facility] 05/25/2024 11:5 9 PM EST 05/26/2024 12:02 AM EST Generic External Data Provider LAB BLOOD ORDERAB LES Final Result Performing Organization Address [facility] de Phone Number [facility] [address] [place] [phone] * (ABNORMAL) Basic Metabolic Panel (05/25/2024 11:59 PM EST) Pathologist [facility] Sodium 140 135 - 145 mmol/L [facility] Potassium 3.6 3.3 - 5.1 mmol/L [facility] Chloride 110(H) 96 - 108 mmol/L [facility] Carbon Dioxide 23 22 - 29 mmol/L [facility] Anion Gap 11(L) 12 - 20 [facility] Urea Nitrogen (BUN) 14 9 - 16 mg/dL [facility] Creatinine, Serum 0.83 0.5 - 1.4 mg/dL [facility] Creatinine Clr Calc Pharmacy 74.7 [facility] Comment:Provided height and weight: 170.18 cm,53.1 kg.eGFR (calculated from the MDRD study equation) and eCrCl(calculated from the Cockcroft-Gault equation) are based ondifferent parameters and may not yield comparable results.If eCrCl result is absurd, please check patient'sheight/weight. Estimated Glomerular Filt Rate >60 [facility] Comment:Chronic Kidney Disea se: Estimated GFR < 60 mL/min/1.89r4Irkkgk Kidney Disease: Estimated GFR < 15 mL/min/1.73m2 Glucose 100 60 - 115 mg/dL [facility] Calcium 8.8 8.4 - 10.2 mg/dL [facility] 05/25/2024 11:5 9 PM EST 05/26/2024 12:02 AM EST us Generic External Data Provider LAB BLOOD ORDERAB LES Final Result Performing Organization Address City/State/[facility] Co de Phone Number [facility] [address] [place] [phone] * Hepatic Function Panel (05/25/2024 11:59 PM EST) Bilirubin, Total 0.5 0.0 - 1.0 mg/dL [facility] Bilirubin, Direct 0.2 0.0 - 0.5 mg/dL [facility] Aspartate Amino Transferase 21 5 - 31 U/L [facility] Alanine Aminotransferase 21 0 - 31 U/L [facility] Total Protein 6.9 6.5 - 8.0 g/dL [facility] Albumin Level 4.0 3.5 - 5.0 g/dL [facility] Alkaline Phosphatase 52 39 - 117 U/L [facility] 05/25/2024 11:5 9 PM EST 05/26/2024 12:02 AM EST us Generic External Data Provider LAB BLOOD ORDERAB LES Final Result [facility] [address] [place] [phone] [phone] * (ABNORMAL) CBC auto differential (05/25/2024 11:59 PM EST) White Blood Count 7.4 4.8 - 10.8 X10*3/uL [facility] Red Blood Count 3.94(L) 4.20 - 5.50 X10*6/uL [facility] Hemoglobin 12.4 12.0 - 16.0 g/dl [facility] Hematocrit 35.1(L) 37.0 - 47.0 % [facility] Mean Corpuscular Volume 89.1 80.0 - 98.0 fL [facility] Mean Corpuscular Hemoglobin 31.5 27.0 - 33.0 pg [facility] Mean Corpuscular HGB Conc 35.3(H) 31.0 - 35.0 g/dl [facility] Red Cell Distribution Width 12.4 11.0 - 16.0 % [facility] Platelet Count 284 160 - 400 X10*3/uL [facility] Mean Platelet Volume 9.2(L) 9.4 - 12.3 fL [facility] Neutrophils Percent Auto 43.6(L) 45 - 73 % [facility] Imm Gran Pct Auto 0.1 0.0 - 0.4 % [facility] Lymphocytes Percent Auto 49.7(H) 20 - 40 % [facility] Monocytes Percent Auto 6.3 2 - 11 % [facility] Eosinophils Percent Auto 0.3 0 - 4 % [facility] Basophils Percent Auto 0.0 0 - 2 % [facility] NRBC Pct Auto 0.0 0.0 - 0.2 /100WBC [facility] Neutrophils Absolute Auto 3.2 2.0 - 8.3 x10*3/uL [facility] Imm Gran Abs Auto 0.01 0.00 - 0.03 X10*3/uL [facility] Lymphocytes Absolute Auto 3.7 1.2 - 4.9 X10*3/uL [facility] Monocytes Absolute Auto 0.5 0.1 - 1.2 X10*3/uL [facility] Eosinophils Absolute Auto 0.0 0.0 - 0.4 X10*3/uL [facility] Basophils Absolute Auto 0.0 0.0 - 0.2 X10*3/uL [facility] NRBC Abs Auto 0.000 0.0 - 0.012 X10*3/uL [facility] 05/25/2024 11:5 9 PM EST 05/26/2024 12:02 AM EST us Generic External Data Provider LAB BLOOD ORDERAB LES Final Result Performing Organization Address City/State/[facility] Co de Phone Number [facility] [address] [place] [phone] documented in this encounter Visit Diagnoses Not on filedocumented in this encounter Additional Health Concerns Assessment Noted Time PHQ-9 Depression Total Score: 8 09/19/19 24 11:07 AM EDT documented as of this encounter Care Teams Splicing Machine Operator Automatic Relationship Specialty Start Date End Date Jessi Dueñas MD [address] [place] [address] PCP - General Family Medicine 11/24/20 Mikayla Bhagat Market ReporterDealer Card Room 05/09/23 documented as of this encounter
--- OUTSIDE RECORDS SUMMARY | 2024-06-19 13:55 | XMS_ITS | Encounter Summary ---
Author Organization [employer] Address [address] [facility] 7t [place] [address] Care Team Providers Care Collar Packer Name Role Phone Jessi Dueñas MD Primary Care Provider Encounter Details Date Type Department Care Team ([facility] st Contact Info) Description 05/18/2023 Telephone [facility] MEDICINE [address] [place], [place] [phone] Jessi Dueñas MD [address] [place], [place] [phone] Social History Tobacco Use Types Packs/Day Years [...] Lopez RN - 05/18/2023 8:48 AM EST RUG FRAME MOUNTER referral made to [facility], referral form faxed with confirmation of receipt. documented in this encounter Plan of Treatment Upcoming Encounters Date Type Department Care Team (Late st Contact Info) Description 07/26/2024 9:45 AM EDT Office Visit [facility] MEDICINE [address] [place] [address] Jessi Dueñas MD [address] [place] [address] documented as of this encounter Visit Diagnoses Not on filedocumented in this encounter Additional Health Concerns Assessment Noted Time PHQ-9 Depression Total Score: 20 023 9:49 AM EDT documented as of this encounter Care Teams Collar Packer Relationship Specialty Start Date End Date Jessi Dueñas MD [address] [place] [address] PCP - General Family Medicine 11/24/20 Mikayla Bhagat Engraver Tire MoldFurnace Combustion Tester 05/09/23 documented as of this encounter
--- OUTSIDE RECORDS SUMMARY | 2024-06-19 13:55 | XMS_ITS | Encounter Summary ---
Author Organization [employer] Address [address] [facility] [address]t [place] [address] Care Team Providers Care Manager Financial Services Name Role Phone Jessi Dueñas MD Primary Care Provider [phone] Encounter Details Date Type Department Care Team ([facility] st Contact Info) Description 02/08/2023 Telephone [facility]INE [address] [place], [place] [phone] Jessi Dueñas MD [address] [place], [place] [phone] Social History Tobacco Use Types Packs/Day Years [...] [facility] [address] [place] [address] Jessi Dueñas MD [address] [place] [address] documented as of this encounter Visit Diagnoses Not on filedocumented in this encounter Additional Health Concerns Assessment Noted Time PHQ-9 Depression Total Score: 20 023 9:49 AM EDT documented as of this encounter Care Teams Manager Financial Services Relationship Specialty Start Date End Date Jessi Dueñas MD [address] [place] [address] PCP - General Family Medicine 11/24/20 Mikayla Bhagat Locker Room AttendantSurveyor Helper 05/09/23 documented as of this encounter
--- OUTSIDE RECORDS SUMMARY | 2024-06-19 13:55 | XMS_ITS | Encounter Summary ---
Author Organization [employer] [facility] Address [address] [facility] 7 [place] [address] Care Team Providers Care Registration Specialist Name Role Phone Jessi Dueñas MD Primary Care Provider [phone] Reason for Visit * Reason Onset Date Comments Med Refill Tramadol refill denied 10/25/2023 Encounter Details Date Type Department Care Team (Late st Contact Info) Description 10/25/2023 Refill [facility] MEDICINE [address] [place] [address] Jessi Dueñas MD [address] [place] [address] Fibromyalgia Social History Tobacco Use Types Packs/Day [...] call her, when I get back from [place] and we can review this. Thank you! TC via P/I#[id number], unable to connect to the number, unable to leave message. Will forward message to PCP's M.A. to schedule a telephone appointment for patient as PCP requested. documented in this encounter Plan of Treatment Upcoming Encounters Date Type Department Care Team (Late st Contact Info) Description 07/26/2024 9:45 AM EDT Office Visit [facility] MEDICINE [address] [place], [place] [phone] Jessi Dueñas MD [address] [place] [address] documented as of this encounter Visit Diagnoses Diagnosis Fibromyalgia Unspecified myalgia and myositis documented in this encounter Additional Health Concerns Assessment Noted Time PHQ-9 Depression Total Score: 8 09/19/19 24 11:07 AM EDT documented as of this encounter Care Teams Registration Specialist Relationship Specialty Start Date End Date Jessi Dueñas MD [address] [place] [address] PCP - General Family Medicine 11/24/20 Mikayla Bhagat Dehydrogenation Operator HeadMobility Scooter Repairer 05/09/23 documented as of this encounter
--- OUTSIDE RECORDS SUMMARY | 2024-06-19 13:55 | XMS_ITS | Encounter Summary ---
Author Organization [employer] Address 75 [facility] 7 [place] [address] Care Team Providers Care Latex Fashions Designer Name Role Phone Jessi Dueñas MD [...] Encounter Details Date Type Department Care Team ([facility] st Contact Info) Description 06/03/2024 Refill [facility] MEDICINE [address] [place], [place] [phone] Jessi Dueñas MD [address] [place], [place] [phone] Fibromyalgia Social History Tobacco Use Types Packs/Day [...] Upcoming Encounters Date Type Department Care Team ([facility] st Contact Info) Description 07/26/2024 9:45 AM EDT Office Visit [facility] MEDICINE [address] [place] [address] Jessi Dueñas MD [address] [place] [address] documented as of this encounter Visit Diagnoses Diagnosis Fibromyalgia Unspecified myalgia and myositis documented in this encounter Additional Health Concerns Assessment Noted Time PHQ-9 Depression Total Score: 8 09/19/19 24 11:07 AM EDT documented as of this encounter Care Teams Latex Fashions Designer Relationship Specialty Start Date End Date Jessi Dueñas MD [address] [place] [address] PCP - General Family Medicine 11/24/20 Mikayla Bhagat Psych ArnpRecords Technician 05/09/23 documented as of this encounter
--- OUTSIDE RECORDS SUMMARY | 2024-06-19 13:55 | XMS_ITS | Encounter Summary ---
Author Organization [facility] Address 75 [facility] 7 [place] [address] Care Team Providers Care Car Worker Helper Name Role Phone Jessi Dueñas MD Primary Care Provider [phone] Reason for Visit * Reason Comments Care Coordination C3 -SERGE edwards telephone call outreach Encounter Details Date Type Department Care Team (Latest Contact Info) Description 05/27/2024 Patient Outreach [facility] MEDICINE [address] [place] [address] Jessi Dueñas MD 230 [place] [address] Care Coordination (C3 TYRA-SERGE Doshi telephone call [...] outbound call to patient introducing herself from [facility] CM Department, in regards to offering services. Patient's name and was confirmed. Patient agrees toparticipate in program. Appt. for initial assessment scheduled for 05/31/24 @ 10:30AM. CHW reinforced direct contact information or CM for any additional questions or concerns and extended clinic hours on Mondays and Wednesdays, and Walk-In Urgent Care Located in [facility]. Patient provided with after-hours line for [facility], , which offer night time triageservice and option to transfer to communications marketing intern provider if needed. Patient verbalizes understanding, and able to repeat back to medical technical writer. documented in this encounter Plan of Treatment Upcoming Encounters Date Type Department Care Team (Late st Contact Info) Description 07/26/2024 9:45 AM EDT Office Visit [facility] MEDICINE [address] [place] [address] Jessi Dueñas MD [address] [place] [address] documented as of this encounter Visit Diagnoses Not on filedocumented in this encounter Additional Health Concerns Assessment Noted Time PHQ-9 Depression Total Score: 8 09/19/19 24 11:07 AM EDT documented as of this encounter Care Teams Car Worker Helper Relationship Specialty Start Date End Date Jessi Dueñas MD 230 [place] [address] PCP - General Family Medicine 11/24/20 Mikayla Bhagat Veterinary Technology InstructorManager Fiber 05/09/23 documented as of this encounter
--- OUTSIDE RECORDS SUMMARY | 2024-06-19 13:55 | XMS_ITS | Encounter Summary ---
Author Organization [employer] [facility] Address 75 [facility] 7 [place] [address] Care Team Providers Care Mill Tender Name Role Phone Jessi Dueñas MD Primary Care Provider [phone] Reason for Visit * Reason Onset Date Comments Referral 12/23/2022 Encounter Details Date Type Department Care Team ([facility] st Contact Info) Description 12/23/2022 Telephone [facility] MEDICINE [address] [place] [address] Jessi Dueñas MD [address] [place] [address] Referral Social History Tobacco Use Types Packs/Day [...] have interpreters. Any questions, contact pt at [phone] (Romansh) documented in this encounter Plan of Treatment Upcoming Encounters Date Type Department Care Team (Late st Contact Info) Description 07/26/2024 9:45 AM EDT Office Visit [facility] MEDICINE [address] [place] [address] Jessi Dueñas MD [address] [place], [place] [phone] documented as of this encounter Visit Diagnoses Not on filedocumented in this encounter Additional Health Concerns Assessment Noted Time PHQ-9 Depression Total Score: 19 023 2:59 PM EST documented as of this encounter Care Teams Mill Tender Relationship Specialty Start Date End Date Jessi Dueñas MD [address] [place], [place] [phone] PCP - General Family Medicine 11/24/20 Mikayla Bhagat Personal Finance InstructorAssembler Golf Wood Head 05/09/23 documented as of this encounter
--- OUTSIDE RECORDS SUMMARY | 2024-06-19 13:55 | XMS_ITS | Encounter Summary ---
Author Organization [employer] Address 75 [facility] 7 [place] [address] Care Team Providers Care Grain Elevator Worker Name Role Phone Jessi Dueñas MD Primary Care Provider [phone] Reason for Visit * Reason Onset Date Comments LETTER 06/17/2024 Encounter Details Date Type Department Care Team ([facility] st Contact Info) Description 06/17/2024 Telephone [facility] MEDICINE [address] [place] [address] Jessi Dueñas MD [address] [place] [address] LETTER Social History Tobacco Use Types Packs/Day Years [...] encounter Miscellaneous Notes * Telephone Encounter - Lynne Arriaza RN - 06/19/2024 9:42 AM EDT Previous tc about the form from 06/05/24: The patient requested a letter for housing. [...] them to contact her with an appointment. Noted in GI note from 06/14/24- GI declined to write letter as provider does not recommend pt. Staying in apartment during pesticide treatment, and because pt.'s GI symptoms have been improving on medication. Patient here today talking about getting a note that she can stay inside her home while pesticide company will come and treat for pesticides. Patient states that she is unable to leave the house for 2 hours as she is afraid that she will have diarrhea. Patient states that she is unable to stay at any once house. We have had long discussion about the danger of her staying inside the house awhile the apartment gets fumigated not just for her about also for her daughter. TC placed to pt., pt. Handed phone to PROGRAMMER ENGINEERING AND SCIENTIFIC to interpret. Advised pt. Per previous message, would have to speak to PCP about obtaining letter and no sooner appt. Than previously scheduled appt. On 07/26/24. However informed PROGRAMMER ENGINEERING [employer] SCIENTIFIC PCP may agree with GI provider that pt. Should not remain in housing for pesticide treatment, and PROGRAMMER ENGINEERING AND SCIENTIFIC inquiring on what pt. Should do to have access to a bathroom during this time. Recommend that pt. Go to a restaurant or library or any public place that pt. Feels comfortable with a bathroom and PROGRAMMER ENGINEERING [employer] SCIENTIFIC reports that should be doable. * Telephone Encounter - Kavya Lopez RN - 06/18/2024 2:22 PM EDT Forms dept never received any request asking for a letter from PCP for this issue. If PCP wants us to write a letter please ask patient to come to med records request the letter and sign a release. * Telephone Encounter - Carly Streeter - 06/17/2024 10:37 AM EDT PT walked in stating that she has been trying to get a letter from PCP for stomach but PCP states the letter PT wants needs to be written by Gastro. PT states she went to Gastro and Gastro let her know that the letter has to come from PCP. PT is incredibly frustrated since she keeps getting sent from PCP to Gastro and vise versa. PT wants a clear answer as to why PCP needs Gastro to do the letterand if PCP can get in contact with Gastro to see what they would like to do! documented in this encounter Plan of Treatment Upcoming Encounters Date Type Department Care Team (Late st Contact Info) Description 07/26/2024 9:45 AM EDT Office Visit [facility] MEDICINE [address] [place] [address] Jessi Dueñas MD [address] [place], [place] [phone] documented as of this encounter Visit Diagnoses Not on filedocumented in this encounter Additional Health Concerns Assessment Noted Time PHQ-9 Depression Total Score: 8 09/19/19 24 11:07 AM EDT documented as of this encounter Care Teams Grain Elevator Worker Relationship Specialty Start Date End Date Jessi Dueñas MD [address] [place] [address] PCP - General Family Medicine 11/24/20 Mikayla Bhagat Land Title ExaminerHospital Corpsman 05/09/23 documented as of this encounter
--- OUTSIDE RECORDS SUMMARY | 2024-06-19 13:55 | XMS_ITS | Encounter Summary ---
Author Organization [employer] Address 75 [facility] 7t [place] [address] Care Team Providers Care Accounting Instructor Name Role Phone Jessi Dueñas MD Primary Care Provider [phone] Reason for Visit * Reason Comments Med Refill Encounter Details Date Type Department Care Team ([facility] st Contact Info) Description 06/08/2024 Refill [facility] MEDICINE [address] [place] [address] Jessi Dueñas MD [address] [place] [address] Social History Tobacco Use Types Packs/Day Years [...] Description 07/26/2024 9:45 AM EDT Office Visit [facility] MEDICINE [address] [place] [address] Jessi Dueñas MD [address] [place] [address] documented as of this encounter Visit Diagnoses Not on filedocumented in this encounter Additional Health Concerns Assessment Noted Time PHQ-9 Depression Total Score: 8 09/19/19 24 11:07 AM EDT documented as of this encounter Care Teams Accounting Instructor Relationship Specialty Start Date End Date Jessi Dueñas MD [address] [place] [address] PCP - General Family Medicine 11/24/20 Mikayla Bhagat Toe StaplerFilling Hauler Weaving 05/09/23 documented as of this encounter
--- OUTSIDE RECORDS SUMMARY | 2024-06-19 13:55 | XMS_ITS | Encounter Summary ---
Author Organization [employer] Address 75 [facility] 7t [place] [address] Care Team Providers Care It Web Development Consultant Name Role Phone Jessi Dueñas MD Primary Care Provider [phone] Reason for Visit * Reason Comments Med Refill Encounter Details Date Type Department Care Team ([facility] st Contact Info) Description 11/23/2023 Refill [facility] MEDICINE [address] [place], [place] [phone] Jessi Dueñas MD [address] [place] [address] Social History Tobacco Use Types Packs/Day Years [...] Office Visit [facility] MEDICINE [address] [place] [address] Jessi Dueñas MD [address] [place] [address] documented as of this encounter Visit Diagnoses Not on filedocumented in this encounter Additional Health Concerns Assessment Noted Time PHQ-9 Depression Total Score: 8 09/19/19 24 11:07 AM EDT documented as of this encounter Care Teams It Web Development Consultant Relationship Specialty Start Date End Date Jessi Dueñas MD [address] [place] [address] PCP - General Family Medicine 11/24/20 Mikayla Bhagat Clipper OperatorSolid Waste Collector 05/09/23 documented as of this encounter
--- OUTSIDE RECORDS SUMMARY | 2024-06-19 13:55 | XMS_ITS | Encounter Summary ---
Author Organization [employer] Address 75 [facility] 7t [place] [address] Care Team Providers Care Street Engineer Name Role Phone Jessi Dueñas MD Primary Care Provider [phone] Reason for Visit * Reason Onset Date Comments Nurse Triage 02/07/2023 Encounter Details Date Type Department Care Team ([facility] st Contact Info) Description 02/07/2023 Telephone [facility] MEDICINE [address] [place] [address] Jessi Dueñas MD 230 [place] [address] Nurse Triage Social History Tobacco Use Types [...] 02/07/2023 11:26 AM EST Triage call with [place] Supervisor Sewing Room ID [id number] Pt reports ED visit @ [facility] 02/06/23 for abdominal pain and migraines. Report is requested from [facility] clinical home health care physician. Pt reports was supposed to be getting [...] lower back pain states she went to [facility] last on 02/06 and did nothing. Patient speaks luxembourgish documented in this encounter Plan of Treatment Upcoming Encounters Date Type Department Care Team (Late st Contact Info) Description 07/26/2024 9:45 AM EDT Office Visit [facility] MEDICINE [address] [place] [address] Jessi Dueñas MD [address] [place] [address] documented as of this encounter Visit Diagnoses Not on filedocumented in this encounter Additional Health Concerns Assessment Noted Time PHQ-9 Depression Total Score: 20 023 9:49 AM EDT documented as of this encounter Care Teams Street Engineer Relationship Specialty Start Date End Date Jessi Dueñas MD 230 [place] [address] PCP - General Family Medicine 11/24/20 Mikayla Bhagat Chicken TenderInspector Firearms 05/09/23 documented as of this encounter
--- OUTSIDE RECORDS SUMMARY | 2024-06-19 13:55 | XMS_ITS | Encounter Summary ---
Author Organization [employer] Address 75 [facility] 7t [place] [address] Care Team Providers Care Telephone Interviewer Name Role Phone Jessi Dueñas MD Primary Care Provider [phone] Encounter Details Date Type Department Care Team ([facility] st Contact Info) Description 06/14/2024 Orders Only [facility] MEDICINE [address] [place], [place] [phone] Jessi Dueñas MD [address] [place], [place] [phone] Restless leg syndrome Social History Tobacco Use [...] 07/26/2024 9:45 AM EDT Office Visit [facility] MEDICINE [address] [place] [address] Jessi Dueñas MD [address] [place] [address] documented as of this encounter Visit Diagnoses Diagnosis Restless leg syndrome Restless legs syndrome (RLS) documented in this encounter Additional Health Concerns Assessment Noted Time PHQ-9 Depression Total Score: 8 09/19/19 24 11:07 AM EDT documented as of this encounter Care Teams Telephone Interviewer Relationship Specialty Start Date End Date Jessi Dueñas MD [address] [place] [address] PCP - General Family Medicine 11/24/[address] Design DraftspersonHabilitation Specialist 05/09/23 documented as of this encounter
--- OUTSIDE RECORDS SUMMARY | 2024-06-19 13:55 | XMS_ITS | Encounter Summary ---
Author Organization [employer] Address 75 [facility] 7t [place] [address] Care Team Providers Care Campground Cleaning Attendant Name Role Phone Jessi Dueñas MD Primary Care Provider [phone] Reason for Visit * Reason Comments Foot Pain Encounter Details Date Type Department Care Team ([facility] st Contact Info) Description 06/18/2024 3:20 PM EDT Office Visit [facility] [address] [place] [address] Name, MD Ignacio [address] [place] [address] Rolo (Primary Dx) Social History Tobacco Use Types [...] Sign Reading Time Taken Comments Blood Pressure 108/66 06/18/2024 3:12 PM EDT Pulse 101 06/18/2024 3:12 PM EDT Temperature 36.9 ??C (98.5 ??F) 06/18/2024 3:12 PM ED T Respiratory Rate 18 06/18/2024 3:12 PM EDT Oxygen Saturation 97% 06/18/2024 3:12 PM EDT Inhaled Oxygen Concentration - - Weight 52.6 kg (116 lb) 06/18/2024 3:12 PM EDT Height - - Body Mass Index 18.17 05/25/2024 9:40 AM EST documented in this encounter Progress Notes * Ignacio Rivera MD - 06/18/2024 3:20 PM EDT Subjective Patient ID: Kera Nicole is a 43 y.o. female who presents for Foot Pain. Patient comes for a sick visit. She is pacing in the room. She tells me she has urge to move the legs at night. She is treated with antipsychotics. Today her symptoms are consistent with akathisia. The patient tells me her psychiatrist lowered her Seroquel yesterday because of her symptoms. She is requesting a medication to help to treat her symptoms. Review of Systems Constitutional: Negative for chills and fever. HENT: Negative for sore throat. Respiratory: Negative for cough, shortness of breath and wheezing. Cardiovascular: Negative for chest pain, palpitations and leg swelling. Gastrointestinal: Negative for abdominal pain. Neurological: See HPI Visit Vitals BP 108/66 (BP Location: Right arm, Patient Position: Sitting, BP Cuff Size: Adult) Pulse 101 Temp 98.5 ??F (36.9 ??C) (Temporal) Resp 18 Wt 116 lb (52.6 kg) SpO2 97% BMI 18.17 kg/m?? Smoking Status Never BSA 1.58 m?? Objective Physical Exam Constitutional: General: She is not in acute distress. Appearance: She is not ill-appearing. Cardiovascular: Rate and Rhythm: Regular rhythm. Tachycardia present. Pulmonary: Effort: Pulmonary effort is normal. No respiratory distress. Neurological: General: No focal deficit present. Motor: No weakness. Assessment/Plan Diagnoses and all orders for this visit: Akathisia Comments: Patient is having symptoms of akathisia. I told her that she might improve in the next week or so since her dose of Seroquel was decreased yesterday. I suggested that trial of low-dose propranolol 10mg twice a day. She has mild asthma. She is encouraged to stop the medication and call if she has worsening of her asthma or dizziness since propranolol can lower the blood pressure. I told her we will start on a low-dose and she should use the first dose at bedtime. Other orders - propranolol (Inderal) 10 MG tablet; Take 1 tablet (10 mg) by mouth 2 times daily for 7 days. documented in this encounter Plan of Treatment Upcoming Encounters Date Type Department Care Team (Late st Contact Info) Description 07/26/2024 9:45 AM EDT Office Visit [facility] MEDICINE [address] [place], [place] [phone] Jessi Dueñas MD [address] [place] [address] documented as of this encounter Visit Diagnoses Diagnosis Akathisia- Primary Abnormal involuntary movements documented in this encounter Additional Health Concerns Assessment Noted Time PHQ-9 Depression Total Score: 8 09/19/19 24 11:07 AM EDT documented as of this encounter Care Teams Campground Cleaning Attendant Relationship Specialty Start Date End Date Jessi Dueñas MD [address] [place] [address] PCP - General Family Medicine 11/24/20 Mikayla Bhagat Polisher ImplantResident Director 05/09/23 documented as of this encounter
--- OUTSIDE RECORDS SUMMARY | 2024-06-19 13:55 | XMS_ITS | Encounter Summary ---
Author Organization [employer] Address 75 [facility] 7 [place] [address] Care Team Providers Care Kiln Hand Name Role Phone Jessi Dueñas MD Primary Care Provider Reason for Visit * Reason Comments Med Refill Encounter Details Date Type Department Care Team ([facility] st Contact Info) Description 10/25/2023 Refill [facility] MEDICINE [address] [place] [address] Anita Arriaga MD 230 [place] [address] Social History Tobacco Use Types Packs/Day Years [...] 9:45 AM EDT Office Visit [facility] MEDICINE [address] [place] [address] Jessi Dueñas MD [address] [place] [address] documented as of this encounter Visit Diagnoses Not on filedocumented in this encounter Additional Health Concerns Assessment Noted Time PHQ-9 Depression Total Score: 8 09/19/19 24 11:07 AM EDT documented as of this encounter Care Teams Kiln Hand Relationship Specialty Start Date End Date Jessi Dueñas MD 230 [place] [address] PCP - General Family Medicine 11/24/20 Mikayla Bhagat Paper SheeterCurve Cleaner 05/09/23 documented as of this encounter
--- OUTSIDE RECORDS SUMMARY | 2024-06-19 13:55 | XMS_ITS | Encounter Summary ---
Author Organization [employer] [facility] Address 75 [facility] 7t [place] [address] Care Team Providers Care Propulsion Machinery Service Engineer Name Role Phone Jessi Dueñas MD Primary Care Provider [phone] Reason for Visit * Reason Onset Date Comments Call Back Request 01/23/2024 Encounter Details Date Type Department Care Team ([facility] Contact Info) Description 01/23/2024 Telephone [facility] MEDICINE [address] [place], [place] [phone] Jessi Dueñas MD 230 [place], [place] [phone] Call Back Request Social History Tobacco Use [...] no scripts sent. Please contact pt at [phone]. (Luxembourgish Speaker) documented in this encounter Plan of Treatment Upcoming Encounters Date Type Department Care Team (Late st Contact Info) Description 07/26/2024 9:45 AM EDT Office Visit [facility] MEDICINE [address] [place] [address] Jessi Dueñas MD [address] [place] [address] documented as of this encounter Visit Diagnoses Not on filedocumented in this encounter Additional Health Concerns Assessment Noted Time PHQ-9 Depression Total Score: 8 09/19/19 24 11:07 AM EDT documented as of this encounter Care Teams Propulsion Machinery Service Engineer Relationship Specialty Start Date End Date Jessi Dueñas MD [address] [place] [address] PCP - General Family Medicine 11/24/20 Mikayla Bhagat Quality SpecialistNavigating Officer 05/09/23 documented as of this encounter
--- OUTSIDE RECORDS SUMMARY | 2024-06-19 13:55 | XMS_ITS | Encounter Summary ---
Author Organization [employer] Address 75 [facility] 7t [place] [address] Care Team Providers Care Teacher Kindergarten Name Role Phone Jessi Dueñas MD Primary Care Provider [phone] Encounter Details Date Type Department Care Team ([facility] st Contact Info) Description 06/14/2024 Population Health Risk Score [facility] () Department 75 [facility] 7 [place] [address] Provider, Population Health Generic Social [...] Visit [facility] MEDICINE [address] [place] [address] Jessi Dueñas MD [address] [place] [address] documented as of this encounter Visit Diagnoses Not on filedocumented in this encounter Additional Health Concerns Assessment Noted Time PHQ-9 Depression Total Score: 8 09/19/19 24 11:07 AM EDT documented as of this encounter Care Teams Teacher Kindergarten Relationship Specialty Start Date End Date Jessi Dueñas MD [address] [place] [address] PCP - General Family Medicine 11/24/20 Mikayla Bhagat Sanitary InspectorMember Of The Legislative Council 05/09/23 documented as of this encounter
--- OUTSIDE RECORDS SUMMARY | 2024-06-19 13:55 | XMS_ITS | Clinical Summary ---
Author Organization [employer] Address [address] [facility] [facility] [address] [place] [address] Care Team Providers Care [facility] Name Role Phone Jessi Dueñas MD Primary Care Provider [phone] Allergies Active Allergy Reactions Criticality Noted Date Comments Cat Dander 08/21/2023 Morphine Anxiety Low 03/24/2022 Shrimp Flavor Agent (Non-Screening) 08/21/2023 Medications clonazePAM (KlonoPIN) 1 MG tablet TAKE 1 TABLET BY MOUTH TWICE DAILY IN THE MORNING AND IN THE EVENING (MAY TAKE ADDITIONAL TABLET NEEDED) 02/22/20 22 Active Levonorgestrel (Mirena, 52 MG,) 20 MCG/DAY intrauterine device Active pantoprazole (ProtoNix) 40 MG EC tablet Take 40 mg by mouth in the morning and at bedtime. 03/16/20 22 Active QUEtiapine (SEROquel) 300 MG tablet Take 300 mg by mouth at bedtime. 02/22/20 22 Active QUEtiapine (SEROquel) 100 MG tablet TAKE 1/2 TABLET BY MOUTH TWICE DAILY NEEDED 05/16/19 23 Active diphenhydrAMINE (Dahlia-Dryl) 25 MG tabletIndicatio ns:Allergic rhinitis, unspecified seasonality, unspecified trigger TAKE 1 TABLET BY MOUTH EVERY 4 TO 6 HOURS NEEDED FOR SWELLING 90 tablet 2 03/21/20 23 Active cyproheptadine (Periactin) 4 MG tablet Take 1 tablet (4 mg) by mouth 2 times daily. For appetite 180 tablet 3 08/21/19 24 025 Active imipramine (Tofranil) 50 MG tablet Take 1 tablet (50 mg) by mouth at bedtime. 30 tablet 11 09/27/19 24 025 Active cholecalciferol VITAMIN D (Vitamin D-3) 50 MCG (2000 UT) tablet TAKE 1 TABLET BY MOUTH EVERY MORNING 90 tablet 3 12/11/19 24 Active montelukast (Singulair) 10 MG tablet TAKE 1 TABLET BY MOUTH EVERY EVENING FOR ASTHMA 90 tablet 3 12/11/19 24 Active gabapentin (Neurontin) 300 MG capsule TAKE 1 CAPSULE BY MOUTH THREE TIMES DAILY IN THE MORNING, EVENING, AND BEDTIME 90 capsule 3 01/22/20 24 Active Lactobacillus 0.05-0.05 MG tabletIndicatio ns:Weight loss of more than 10% body weight Take 1 tablet by mouth Once per day. 90 tablet 3 04/09/19 25 Active hydrocortisone 2.5 % cream Apply around the rectum 60 g 04/09/19 25 Active fluticasone (Flonase) 50 MCG/ACT nasal sprayIndication s:Allergic rhinitis, unspecified seasonality, unspecified trigger INHALE 2 SPRAYS IN EACH NOSTRIL ONCE DAILY DIRECTED 48 g 05/13/19 25 Active FLUoxetine (PROzac) 40 MG capsule Take 1 capsule (40 mg) by mouth Once per day. 30 capsule 11 05/20/19 25 026 Active 27-1 MG tablet Take 1 tablet by mouth in the morning. 90 tablet 05/20/19 25 Active traMADol (Ultram) 50 MG tabletIndicatio ns:Fibromyalgia Take 1 tablet (50 mg) by mouth every 12 (twelve) hours if needed for severe pain for up to 28 days. 56 tablet 06/04/19 25 025 Active Mometasone Furoate (Asmanex HFA) 200 MCG/ACT aerosol INHALE 1 PUFF BY MOUTH TWICE DAILY RINSE MOUTH AFTER USING. 13 g 06/11/19 25 Active rOPINIRole (Requip) 4 MG tabletIndicatio ns:Restless leg syndrome Take 1 tablet (4 mg) by mouth at bedtime. 90 tablet 2 06/15/19 25 Active propranolol (Inderal) 10 MG tablet Take 1 tablet (10 mg) by mouth 2 times daily for 7 days. 14 tablet 06/19/19 25 025 Active Mometasone Furoate (Asmanex HFA) 200 MCG/ACT aerosol INHALE 1 PUFF TWICE DAILY. RINSE MOUTH AFTER USING. 13 g 1 03/05/20 24 025 Discontinued rOPINIRole (Requip) 4 MG tabletIndicatio ns:Restless leg syndrome TAKE 1 TABLET BY MOUTH AT BEDTIME 90 tablet 03/20/20 24 025 Discontinued(R eorder (will not trigger notification to Pharmacy)) traMADol (Ultram) 50 MG tabletIndicatio ns:Fibromyalgia Take 1 tablet (50 mg) by mouth every 12 (twelve) hours if needed for severe pain for up to 28 days. Do not start before May 02, 2024. 56 tablet 05/02/19 25 025 Discontinued(R eorder (will not trigger notification to [...] & Plan (12/08/2023 9:32 AM EDT): [facility] 09/2023 Labs showed low titer [...] & Plan (10/06/2023 12:39 PM EDT): From [facility] 09/2023 Labs showed low titer [...] & Plan (09/19/2023 6:11 PM EDT): From [facility] 09/2023 Labs showed low titer [...] has already asked an agency to do [employer] evaluation To go to medical records and [...] (05/19/2023 10:31 AM EST): Plan to see [facility] rheumatology in June [...] 12:59 PM EST): Will send referral to [facility] rheumatology, JUANITO + , whole body pain, fatigue, all worse after two episodes of C diff Still likely fibromyalgia Recommend avoidance of marijuana and cocaine, drugs purchased on the street Assessment & Plan (01/04/2023 7:56 PM EDT): Will send referral to [facility] rheumatology, JUANITO + [...] aware of side effects, 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, 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 Neck pain [...] & Plan (02/20/2023 12:56 PM EST): Call [facility] to get appointment [...] (03/24/2022 10:10 AM EST): Continue Flovent and niravn RENAE Has ENT appointment in May 2022 [...] Encounters Date Type Department Care Team Description 06/18/2024 3:20 PM EDT Office Visit [facility] [address] [place] [phone] Name, MD Rolo Pierre (Primary Dx) 06/18/2024 Patient Outreach [facility] [address] [place] [phone] Jessi Dueñas MD Care Coordination ([address] [place] Doshi telephone call outreach) 06/17/2024 Telephone [facility] [address] [place] [address] [phone] Jessi Dueñas MD LETTER 06/14/2024 Orders Only [facility] [address] [place] [phone] Jessi Dueñas MD Restless leg syndrome 06/14/2024 Population Health Risk Score [facility] (C3) Department [address] [place] [address] [phone] Provider, Population Health Generic 06/12/2024 Telephone [facility] [address] [place] [phone] Jessi Dueñas MD Medication Question; Med Refill 06/08/2024 Refill [facility] [address] [place] [address] [phone] Jessi Dueñas MD 06/03/2024 Refill [facility] [address] [place] [address] [phone] Jessi Dueñas MD Fibromyalgia 05/30/2024 Patient Outreach [facility] [address] [place] [address] [phone] Jessi Dueñas MD Care Coordination ([facility] [place] telephone call outreach) 05/30/2024 Orders Only [facility] External Provider, [facility] 05/29/2024 Patient Outreach [address] [phone] Jessi Dueñas MD Transition Of Care (Tcm) (ED visit requested) 05/29/[address] [address] Jessi Dueñas MD Med Refill 05/29/[address] [address] Jessi Dueñas MD Fibromyalgia 05/28/2024 Patient Outreach [address] [phone] Jessi Dueñas MD Transition Of Care (Tcm) (ERRORr) 05/27/2024 Patient Outreach [address] [phone] Jessi Dueñas MD Care Coordination (C3 [facility] Doshi telephone call outreach /) 05/27/2024 Patient Outreach [address] [address] Jessi Dueñas MD Care Coordination ([facility] telephone call outreach) 05/27/[address] [phone] Jessi Dueñas MD Care Management (C3CM- chart review) 05/25/2024 9:40 AM EST Office Visit [facility] [address] [phone] Ignacio Rivera MD Diarrhea, unspecified type (Primary Dx); Nausea and vomiting, unspecified vomiting type 05/25/2024 Orders Only GENERIC EXTERNAL DATA DEPARTMENT Provider, Generic External Data 05/17/2024 11:00 AM EST Office Visit [address] [address] Jessi Dueñas MD Weight loss of more than 10% body weight (Primary Dx); Post concussion syndrome; Gastroesophageal reflux disease without esophagitis; Bipolar affective disorder, currently depressed, moderate (CMS/[facility]); Fibromyalgia 05/17/2024 Orders Only GENERIC EXTERNAL DATA DEPARTMENT Provider, Generic External Data 05/17/2024 Travel 05/13/2024 Telephone [facility] [address] [place] [phone] Jessi Dueñas MD [facility] (Disposable Underpad/Chux Large) 05/12/2024 Refill [facility] [address] [place] [phone] Jessi Dueñas MD Allergic rhinitis, unspecified seasonality, unspecified trigger 05/02/2024 Telephone [facility] [address] [place] [address] [phone] Jessi Dueñas MD [facility] (Disposable underpad, large/1 unit = each, 248 per mo.) 04/29/2024 Refill [facility] [address] [place] [address] [phone] Jessi Dueñas MD Fibromyalgia 04/17/[address] [phone] Jessi Dueñas MD 04/17/2024 Orders Only [facility] [address] [place] [phone] Jessi Dueñas MD Acute bilateral low back pain without sciatica (Primary Dx); Polyarthralgia; Chronic pain of both knees; Bilateral hand pain 04/11/2024 Telephone [facility] [address] [place] [address] [phone] Jessi Dueñas MD Referral 04/09/2024 11:30 AM EST Office Visit [facility] [address] [place] [address] [phone] Jessi Dueñas MD Acute right ankle pain (Primary Dx); Weight loss of more than 10% body weight; Bipolar disorder, current episode mixed, moderate (CMS/HCC); Mild persistent asthma without complication; Incontinence of feces, unspecified fecal incontinence type; Post concussion syndrome 04/09/2024 Telephone [facility] [address] [place] [address] [phone] Jessi Dueñas MD 04/09/2024 Telephone [facility] [address] [place] [phone] Jessi Dueñas MD Durable Medical Equipment (L&C Form: Boost) 04/09/2024 Travel 04/04/[address] [address] Jessi Dueñas MD Medication Question 04/04/[address] [address] Jessi Dueñas MD Fibromyalgia 04/02/2024 Patient Outreach [address] [phone] Jessi Dueñas MD Pre-visit Planning (SDSC screening completed on 05/09/2023) 04/01/[address] [phone] Jessi Dueñas MD Durable Medical Equipment (L&C Form: Pull ups) 03/29/[address] [phone] Jessi Dueñas MD telephone call from Last 3 Months Immunizations Name Administration [...] (116 lb) 06/18/2024 3:12 PM EDT Height 170.2 cm (5' 7 ) 05/25/2024 9:40 AM EST Body Mass Index 18.17 05/25/2024 9:40 AM EST Plan of Treatment Upcoming Encounters Date Type Department Care Team (Late st Contact Info) Description 07/26/2024 9:45 AM EDT Office Visit [facility] [address] [place] [address] Jessi Dueñas MD [address] [place] [address] Health Maintenance Due Date Last Done Comments [...] Procedure Name Priority Date/Time Associated Diagnosis Comments MRCP Routine 05/30/2024 7:29 AM EST HCG, [...] EST Narrative 05/30/2024 8:24 AM EST ? [facility] ?[address] ?[place] [address] ? Magnetic Resonance Report ? Signed ? Patient: Lc Nicole,Kera ?MR#: MM ?? [id number] ? : 1980 ?Acct:[id number] ? Age/Sex: 43 / F ?ADM Date: 05/30/24 ? Loc: HO.MRI ? Attending Dr: Ashley AZEVEDO ? Ordering Physician: Ashley Duncan ?? Date of Service: 05/30/24 ?? Procedure(s): MR MRCP ?? Accession Number(s): [id number] ? cc: Jessi Dueñas; Ashley Duncan ? [...] ?05/30/24 08 ? DD/ 8 ? TD/TT: 05/30/ 0805 ? Improvement Nurse: ? Procedure Note Donotuseinterpreter, Image - 05/30/2024 [place] [address] Magnetic Resonance Report Signed Patient: Kera ArmstrongMR#: [id number] : 1980Acct:[id number] Age/Sex: 43 / FADM Date: 05/30/24 Loc: HO.MRI Attending Dr: Ashley MILNER- Ordering Physician: Ashley Duncan Date of Service: 05/30/24 Procedure(s): MR MRCP Accession Number(s): [id number] cc: Jessi Dueñas; Ashley Duncan EXAMINATION: MRCP [...] by: Everett Rich MD 05/30/2024 08:21 AM [facility] Dictated By: Everett Rich MD Signed By: <Electronically signed by Everett Rich MD in OV> 05/30/24 0821 DD/ 0729 TD/TT: 05/30/24 08 Improvement Nurse: [facility] External Provider IMG MRI PROCEDURES Final Result * SARS-CoV-2 RNA, Influenza A/B, and RSV RNA, Ql NAAT (05/25/2024 11:59 PM EST) Influenza A PCR NEGATIVE Negative [facility] Influenza B PCR NEGATIVE Negative [facility] Resp Syncy Virus RNA Qual PCR NEGATIVE Negative [facility] SARS COV2 PCR NEGATIVE Negative [facility] Comment:All test results mus t [...] use by authorized laboratories.Testing performed on the Tyrogenex GeneXpert utilizingreal-time RT-PCR.All SARS CoV2 and positive influenza A/B results arereported to [facility]. 05/25/2024 11:5 9 PM EST 05/26/2024 12:02 AM EST Generic External Data Provider LAB MICROBIOLOGY - GENERAL ORDERABLES Final Result [facility] [address], [place] [phone] * (ABNORMAL) CBC auto differential (05/25/2024 11:59 PM EST) White Blood Count 7.4 4.8 - 10.8 X10*3/uL [facility] Red Blood Count 3.94(L) 4.20 - 5.50 X10*6/uL [facility] Hemoglobin 12.4 12.0 - 16.0 g/dl [facility] Hematocrit 35.1(L) 37.0 - 47.0 % [facility] Mean Corpuscular Volume 89.1 80.0 - 98.0 fL [facility] Mean Corpuscular Hemoglobin 31.5 27.0 - 33.0 pg [facility] Mean Corpuscular HGB Conc 35.3(H) 31.0 - 35.0 g/dl [facility] Red Cell Distribution Width 12.4 11.0 - 16.0 % [facility] Platelet Count 284 160 - 400 X10*3/uL [facility] Mean Platelet Volume 9.2(L) 9.4 - 12.3 fL [facility] Neutrophils Percent Auto 43.6(L) 45 - 73 % [facility] Imm Gran Pct Auto 0.1 0.0 - 0.4 % [facility] Lymphocytes Percent Auto 49.7(H) 20 - 40 % [facility] Monocytes Percent Auto 6.3 2 - 11 % [facility] Eosinophils Percent Auto 0.3 0 - 4 % [facility] Basophils Percent Auto 0.0 0 - 2 % [facility] NRBC Pct Auto 0.0 0.0 - 0.2 /100WBC [facility] Neutrophils Absolute Auto 3.2 2.0 - 8.3 x10*3/uL [facility] Imm Gran Abs Auto 0.01 0.00 - 0.03 X10*3/uL [facility] Lymphocytes Absolute Auto 3.7 1.2 - 4.9 X10*3/uL [facility] Monocytes Absolute Auto 0.5 0.1 - 1.2 X10*3/uL [facility] Eosinophils Absolute Auto 0.0 0.0 - 0.4 X10*3/uL [facility] Basophils Absolute Auto 0.0 0.0 - 0.2 X10*3/uL [facility] NRBC Abs Auto 0.000 0.0 - 0.012 X10*3/uL [facility] 05/25/2024 11:5 9 PM EST 05/26/2024 12:02 AM EST us Generic External Data Provider LAB BLOOD ORDERAB LES Final Result Performing Organization Address City/[facility] Co de Phone Number [facility] [address] [place] [phone] * hCG, Total, Quantitative (05/25/2024 11:59 PM EST) HCG Quantitative <2 mIU/mL [facility] Comment:Weeks post LMP Appro ximate hCG(Last Menstrual Period) Range (mIU/ml)3 - 4 weeks 9 - 1304 - 5 weeks 75 - 2,6005 - 6 weeks 850 - 20,8006 - 7 weeks 4000 - 100,2007 - 12 weeks 11,500 - 289,14527 - 16 weeks 18,300 - 137,14298 - 29 weeks (2nd trimester) 1,400 - 53,85865 - 41 weeks (3rd trimester) 940 - [...] ORDERAB LES Final Result Performing Organization Address City/[facility]/ZIP Co de Phone Number [facility] [address] [place] [phone] * Magnesium (05/25/2024 11:59 PM EST) Magnesium 2.0 1.6 - 2.6 mg/dL [facility] 05/25/2024 11:5 9 PM EST 05/26/2024 12:02 AM EST Generic External Data Provider LAB BLOOD ORDERAB LES Final Result Performing Organization Address City/[facility]/ZIP Co de Phone Number [facility] [address] [place] [phone] * Lipase (05/25/2024 11:59 PM EST) Only the most recent of2 resultswithin the time period is included. [facility] Lipase 33 8 - 78 U/L [facility] 05/25/2024 11:5 9 PM EST 05/26/2024 12:02 AM EST Generic External Data Provider LAB BLOOD ORDERAB LES Final Result Performing Organization Address [facility] Co ga Phone Number [facility] [address] [place] [phone] * Hepatic Function Panel (05/25/2024 11:59 PM EST) Only the most recent of2 resultswithin the time period is included. [facility] Bilirubin, Total 0.5 0.0 - 1.0 mg/dL [facility] Bilirubin, Direct 0.2 0.0 - 0.5 mg/dL [facility] Aspartate Amino Transferase 21 5 - 31 U/L [facility] Alanine Aminotransferase 21 0 - 31 U/L [facility] Total Protein 6.9 6.5 - 8.0 g/dL [facility] Albumin Level 4.0 3.5 - 5.0 g/dL [facility] Alkaline Phosphatase 52 39 - 117 U/L [facility] 05/25/2024 11:5 9 PM EST 05/26/2024 12:02 AM EST us Generic External Data Provider LAB BLOOD ORDERAB LES Final Result Performing Organization Address [facility] Co de Phone Number [facility] [address] [place] [phone] * (ABNORMAL) Basic Metabolic Panel (05/25/2024 11:59 PM EST) Sodium 140 135 - 145 mmol/L [facility] Potassium 3.6 3.3 - 5.1 mmol/L [facility] Chloride 110(H) 96 - 108 mmol/L [facility] Carbon Dioxide 23 22 - 29 mmol/L [facility] Anion Gap 11(L) 12 - 20 [facility] Urea Nitrogen (BUN) 14 9 - 16 mg/dL [facility] Creatinine, Serum 0.83 0.5 - 1.4 mg/dL [facility] Creatinine Clr Calc Pharmacy 74.7 [facility] Comment:Provided height and weight: 170.18 cm,53.1 kg.eGFR (calculated from the MDRD study equation) and eCrCl(calculated from the Cockcroft-Gault equation) are based ondifferent parameters and may not yield comparable results.If eCrCl result is absurd, please check patient'sheight/weight. Estimated Glomerular Filt Rate >60 [facility] Comment:Chronic Kidney Disea se: Estimated GFR < 60 mL/min/1.44a6Ohzqbs Kidney Disease: Estimated GFR < 15 mL/min/1.73m2 Glucose 100 60 - 115 mg/dL [facility] Calcium 8.8 8.4 - 10.2 mg/dL [facility] 05/25/2024 11:5 9 PM EST 05/26/2024 12:02 AM EST us Generic External Data Provider LAB BLOOD ORDERAB LES Final Result [facility] [address] [place] [phone] * POCT Rapid Influenza B BOYER ID NOW (05/25/2024 9:52 AM EST) Influenza B Negative Negative, Indeterminate [facility] QC Media Lot # [id number] [facility] Lot# Expiration Date [id number] [facility] Swab 05/25/2024 9:52 AM EST Ignacio Name POINT OF CARE TEST ENTER/EDIT OR DERABLES Final Result Performing Organization Address City/[facility]/ZIP Co de Phone Number [facility] [address] [place] [phone] * POCT Rapid Influenza A BOYER ID NOW (05/25/2024 9:51 AM EST) Influenza A Negative Negative, Indeterminate [facility] QC Media Lot # [id number] [facility] Lot# Expiration Date [facility] Swab 05/25/2024 9:51 AM EST Ignacio Name POINT OF CARE TEST ENTER/EDIT OR DERABLES Final Result Performing Organization Address [facility]/ZIP Co de Phone Number [facility] [address] [place] [phone] * POCT Rapid Covid-19 BinaxNOW (05/25/2024 9:51 AM EST) Rapid COVID Ag Negative QC Media Lot # [id number] Lot# Expiration Date Swab 05/25/2024 9:51 AM EST Ignacio Name POINT OF CARE TEST ENTER/EDIT OR DERABLES Final Result * VITAMIN D 25-OH (D2 AND D3) (05/17/2024 9:40 AM EST) Vitamin D, 25-OH, D2 <4 ng/mL [facility] Comment:This test was develo ped and its analytical performancecharacteristics have been determined by [employer] [place], [place]. It hasnot been cleared or approved by the U.S. Food and DrugAdministration. This assay has been validated pursuantto the CLIA regulations and is used for clinicalpurposes.THIS TEST WAS PERFORMED AT:[employer]/[address] [place] [id number] MADRID MD,PHD Vitamin D, 25-OH, D3 31 ng/mL [facility] Comment:This test was christopher malik and its analytical performancecharacteristics have been determined by [employer] [place], [place]. It hasnot been cleared or approved by the U.S. Food and DrugAdministration. This assay has been validated pursuantto the CLIA regulations and is used for clinicalpurposes. Vitamin D, 25-OH, Total 31 30 - 100 ng/mL [facility] Comment:Vitamin D, 25-Hydrox y reports [...] = 30 ng/mL.For additional information, please refer tohttp://education.ThePresent.Co/faq/VOB921(This link is being provided for informational/educational purposes only.) 05/17/2024 9:40 AM EST 05/17/2024 9:40 AM EST us Generic External Data Provider LAB BLOOD ORDERAB LES Final Result [facility] [address] [place] [phone] * Vitamin B12 (Cobalamin) and Folate Panel, Serum (05/17/2024 9:40 AM EST) Vitamin B12 474 200 - 900 pg/mL [facility] Comment:NORMAL 200-900 PG/ML INDETERMINATE 160-199 PG/ML DEFICIENT < 160 PG/ML Folate 15.2 > or = 4.0 ng/mL [facility] Comment:Reference Values:> o r = 4.0 ng/mL< 4.0 ng/mL suggests folate deficiency Methotrexate, aminopterin and folinic acid(leucovorin) are chemotherapeutic agents whose molecularstructures are similar to folate; therefore, the Architectfolate assay cannot be used for patients using these drugs. 05/17/2024 9:40 AM EST 05/17/2024 9:40 AM EST us Generic External Data Provider LAB BLOOD ORDERAB LES Final Result Performing Organization Address [facility] Co de Phone Number [facility] [address] [place] [phone] * TSH with Reflex to Free T4 (05/17/2024 9:40 AM EST) TSH reflex Free T4 1.12 0.32 - 4.0 uIU/mL [facility] 05/17/2024 9:40 AM EST 05/17/2024 9:40 AM EST Generic External Data Provider LAB BLOOD ORDERAB LES Final Result Performing Organization Address [facility] de Phone Number [facility] [address] [place] [phone] * Hepatitis Panel, General (05/17/2024 9:40 AM EST) Hepatitis A IgM Nonreactive Nonreactive [facility] Comment:IgM antibodies to AMAYA V not detected; does not exclude earlyacute or recovered HAV infection. ~Hepatitis B Surface Antibody REACTIVE Nonreactive [facility] Comment:REACTIVE: > 11.99 mI U/mL Hepatitis B Core Antibody Nonreactive Nonreactive [facility] Hepatitis C Antibody Nonreactive Nonreactive [facility] Comment:Antibodies to HCV no t detected; does not exclude early acuteHCV infection. Hepatitis B Surface Ag Negative Negative [facility] 05/17/2024 9:40 AM EST 05/17/2024 9:40 AM EST Generic External Data Provider LAB BLOOD ORDERAB LES Final Result Performing Organization Address [facility]/ZIP Co de Phone Number [facility] [address] [place] [phone] * HIV-1/2 Antigen and Antibodies, Fourth Generation, with Reflexes (05/17/2024 9:40 AM EST) [facility] Signature HIV AB/AG Nonreactive Nonreactive [facility] Comment:HIV-1 p24 Ag and/or HIV-1/HIV-2 Ab not detected.A test result that is nonreactive does not exclude thepossibility of exposure to or infection with HIV-1 and/orHIV-2. Nonreactive results in this assay for individualswith prior exposure to HIV-1 and/or HIV-2 may be due toantigen and antibody levels that are below the limit ofdetection of this assay.The [employer] HIV Ag/Ab Combo assay result andsupplemental assay results should be interpreted inconjunction with the patient's clinical presentation,history and other laboratory results. If the results areinconsistent with clinical evidence, additional testing issuggested to confirm the result. 05/17/2024 9:40 AM EST 05/17/2024 9:40 AM EST Generic External Data Provider LAB BLOOD ORDERAB LES Final Result Performing Organization Address [facility]/ZIP Co de Phone Number [facility] [address] [place] [address] [phone] * XR Ankle 3+ Views Right (04/09/2024 12:22 PM EST) Anatomical Region Laterality Modality Lower Extremities, Ankle Right Radiogr aphic Imaging 04/09/2024 12:2 2 PM EST Narrative 04/09/2024 12:45 PM EST ?[facility] ?[address] ?[place] [address] ?XRay Report ? Signed ? Patient: Plattdany Nicole,Kera ?MR#: MM ?? [id number] ? : 1980 ?Acct:[id number] ? Age/Sex: 43 / F ?ADM Date: 01/07/25 ? Loc: HO.HHCX ? Attending Dr: Jessi Dueñas MD ? Ordering Physician: Jessi Dueñas ?? Date of Service: 04/09/24 ?? Procedure(s): XR ankle RT min 3V ?? Accession Number(s): [id number] ? cc: Jessi Dueñas ? EXAMINATION: ?? [...] DD/ 1222 ? TD/TT: 04/09/24 1231 ? Improvement Nurse: MSM ? Procedure Note Cy, Eloy - 04/09/[address] [address] XRay Report Signed Patient: Kera ArmstrongMR#: [id number] : 1980Acct:[id number] Age/Sex: 43 / FADM Date: 04/09/24 Loc: HO.HHCX Attending Dr: Jessi Dueñas MD Ordering Physician: Jessi Dueñas Date of Service: 04/09/24 Procedure(s): XR ankle RT min 3V Accession Number(s): [id number] cc: Jessi Dueñas EXAMINATION: XR ANKLE, RIGHT [...] 04/09/24 1242 DD/ 1222 TD/TT: 04/09/24 1231 Improvement Nurse: ALTON us Jessi Dueñas MD IMG XR PROCEDURES Edited Resul t - Final * BI Mammogram Screening Tomosynthesis Bilateral (09/28/2023 12:08 PM EDT) Anatomical Region Laterality Modality Breast Bilateral Mammography 09/28/2023 12:0 8 PM EDT Narrative 10/27/2023 9:20 AM EDT ? [facility] ? [address] ?[place] [address] ? Mammography Report ? Signed ? Patient: Platt Nicole,Kera ?MR#: [id number] ?? [id number] ? : 1980 ?Acct:[id number] ? Age/Sex: 42 / F ?ADM Date: 09/27/24 ? Loc: HO.MAMMO ? Attending Dr: Jessi Dueñas MD ? Ordering Physician: Anita Arriaga MD ?Re ?? sults: 1Negative ? Date of Service: 09/27/24 ?Follow Up: 1 Year From Orig ?? inal Mammogram ? Procedure(s): MM tomosynthesis screening BI ?? Accession Number(s): [id number] ? cc: Jessi Dueñas; Anita Arriaga MD [...] 0916 ? DD/ 1208 ? TD/TT: ? Improvement Nurse: ? Procedure Note Cy, Eloy - 10/27/2023 [facility] [address] [place] [address] Dr. Reeves, [place] [address] Mammography Report Signed Patient: Kera Armstrong#: [id number] : 1980Acct:[id number] Age/Sex: 42 / FADM Date: 09/28/23 Loc: HO.MAMMO Attending Dr: Jessi Dueñas MD Ordering Physician: Anita Arriaga sults: 1Negative Date of Service: 09/28/23Follow Up: 1 Year From Orig inal Mammogram Procedure(s): MM tomosynthesis screening BI Accession Number(s): [id number] cc: Jessi Dueñas; Anita Arriaga MD EXAMINATION: [...] in OV> 10/27/23 0916 DD/ 1208 TD/TT: Improvement Nurse: us Anita Roca MD IMG BI PROCEDURES [...] was manually screened according to routine procedures. Vendor Management Specialist : SEE COMMENT [facility] Comment: KN, CT(ASCP) CT screening location: [address] ??[address] Interpretation/R esult: Negative for intraepithelial lesion or malignancy. [facility] LMP: NONE [facility]IVEN [facility] Prev. BX: NONE GIVEN [facility] Prev. PAP: NONE [facility]IVEN [facility] SOURCE: None given [facility] Statement Of Adequacy: SEE COMMENT [facility] Comment: Satisfactory for evaluation. Endocervical/transformation zone component absent. Partially obscuring blood 02/22/2021 Jessi Dueñas MD LAB PATHOLOGY ORDERABLES Final Result Performing Organization Address [facility] de Phone Number [facility] [address] * HPV mRNA E6/E7 REFLEX TO HPV 16, 18/45 (02/22/2021 12:00 AM EST) HPV nRNA E6/E7 Not Detected Not Detected [facility] Comment: Methodology: Handyperson-Mediated Amplification This assay detects E6/E7 viral messenger RNA (mRNA) from 14 high-risk HPV types (16,18,31,33,35,39,45,51,52,56,58,59,66,68). ? The analytical performance characteristics of this assay have been determined by [email or web address]. The modifications have not been cleared or approved by the FDA. This assay has been validated pursuant to the CLIA regulations and is used for clinical purposes. ?? For additional information, please refer to http://education.Tradono/faq/YKN980i5 (This link if provided for information/ educational purposes only.) 02/22/2021 eJssi Dueñas MD LAB CYTOLOGY ORDERABLES Final Result Performing Organization Address [facility] Co de Phone Number [facility] [address] [place] [address] from Last 3 Months or Most Recently Relevant to Health Maintenance Insurance [facility] C3 HSN PARTIAL Care Teams [address] Pressman Relationship Specialty Start Date End Date Jessi Dueñas MD [address] [place] [address] PCP - General Family Medicine 11/24/20 Mikayla Bhagat Senior Accounting AssociateHarvest Contractor 05/09/23
--- OUTSIDE RECORDS SUMMARY | 2024-06-19 13:55 | XMS_ITS | Encounter Summary ---
Author Organization [employer] [facility] Address [address] [facility] 7t [place] [address] Care Team Providers Care Inseminator Name Role Phone Jessi Dueñas MD Primary Care Provider Encounter Details Date Type Department Care Team (Late st Contact Info) Description 10/12/2022 Orders Only [facility] [address] [place] [phone] Jessi Dueñas MD [address] [place] [address] [phone] Acute bilateral low back pain, unspecified whether [...] Description 07/26/2024 9:45 AM EDT Office Visit [facility] [address] [place] [address] [phone] Jessi Dueñas MD [address] [place] [address] documented as of this encounter Visit Diagnoses Diagnosis Acute bilateral low back pain, unspecified whether sciatica present- Primary Hematoma of left knee region Sprain of left medial ankle joint, subsequent encounter documented in this encounter Additional Health Concerns Assessment Noted Time PHQ-9 Depression Total Score: 19 023 2:59 PM EST documented as of this encounter Care Teams Inseminator Relationship Specialty Start Date End Date Jessi Dueñas MD [address] [place] [address] PCP - General Family Medicine 11/24/20 Mikayla Bhagat DofferDentist/Owner 05/09/23 documented as of this encounter
--- OUTSIDE RECORDS SUMMARY | 2024-06-19 13:55 | XMS_ITS | Encounter Summary ---
Author Organization [employer] [facility] Address [address] [facility] 7 [place] [address] Care Team Providers Care Commercial Mortgage Broker Name Role Phone Jessi Dueñas MD Primary Care Provider [phone] Reason for Visit * Reason Onset Date Comments Care Management 05/27/2024 [facility]- chart revi ew Encounter Details Date Type Department Care Team ([facility] st Contact Info) Description 05/27/2024 Telephone [facility] MEDICINE [address] [place] [address] Jessi Dueñas MD [address] [place] [address] Care Management (C3CM- chart review) Social History [...] body pain, neck pain . Specialists include [facility], neurology, rheumatology arthritis treatment center, [facility] orthopedic surgery, sleep medicine, [facility] optometry, ENT, [facility] GI, [facility] Women's. ED visits within the last 12 months include [facility] 05/25. Last appointment in PCP office on 05/25. Next appointment scheduled for 07/26 with PCP. documented in this encounter Plan of Treatment Upcoming Encounters Date Type Department Care Team (Chaz Contact Info) Description 07/26/2024 9:45 AM EDT Office Visit [facility] MEDICINE [address] [place] [address] Jessi Dueñas MD [address] [place] [address] documented as of this encounter Visit Diagnoses Not on filedocumented in this encounter Additional Health Concerns Assessment Noted Time PHQ-9 Depression Total Score: 8 09/19/19 24 11:07 AM EDT documented as of this encounter Care Teams Commercial Mortgage Broker Relationship Specialty Start Date End Date Jessi Dueñas MD [address] [place], [place] [phone] PCP - General Family Medicine 11/24/20 Mikayla Bhagat Hairspring VibratorMortgage Protection Specialist 05/09/23 documented as of this encounter
--- OUTSIDE RECORDS SUMMARY | 2024-06-19 13:55 | XMS_ITS | Encounter Summary ---
Author Organization [employer] [facility] Address [address] [facility] 7 [place] [address] Care Team Providers Care Vulcan Crewmember Name Role Phone Jessi Dueñas MD Primary Care Provider [phone] Reason for Visit * Reason Onset Date Comments Other 01/05/2023 Encounter Details Date Type Department Care Team ([facility] st Contact Info) Description 01/05/2023 Telephone [facility]INE [address] [place] [address] Jessi Dueñas MD [address] [place] [address] Other Social History Tobacco Use Types Packs/Day [...] 12:53 PM EDT TC placed to pt [phone] to inform pt PCP sent Cymbalta to the pharmacy yesterday at [facility] for her pain. Pt reports she called [facility] pharmacy today and they told her that they did not receive the script. RN placed pt on hold and called [facility] pharmacy who confirmed they did receive the [...] PCP has placed new rheumatology referral for [facility] yesterday. Pt verbalized understanding. Pt to f/u PRN. * Telephone Encounter - Divya Frank - 01/05/2023 11:51 AM EDT Tc from pt states PCP advised her she will send a script for pain on 01/04 appointment but pt never received medication. Please contact pt at [phone] (Cypriot) documented in this encounter Plan of Treatment Upcoming Encounters Date Type Department Care Team (Late st Contact Info) Description 07/26/2024 9:45 AM EDT Office Visit [facility] MEDICINE [address] [place] [phone] Jessi Dueñas MD [address] [place] [address] documented as of this encounter Visit Diagnoses Not on filedocumented in this encounter Additional Health Concerns Assessment Noted Time PHQ-9 Depression Total Score: 20 023 9:49 AM EDT documented as of this encounter Care Teams Vulcan Crewmember Relationship Specialty Start Date End Date Jessi Dueñas MD [address] [place] [address] PCP - General Family Medicine 11/24/20 Mikayla Bhagat Facilities OperatorEnergy Project Engineer 05/09/23 documented as of this encounter
--- OUTSIDE RECORDS SUMMARY | 2024-06-19 13:55 | XMS_ITS | Encounter Summary ---
Author Organization [employer] Address [address] [facility] 7t [place] [address] Care Team Providers Care Inspection Supervisor Name Role Phone Jessi Dueñas MD Primary Care Provider [phone] Encounter Details Date Type Department Care Team ([facility] st Contact Info) Description 01/11/2023 Orders Only [facility] MEDICINE [address] [place], [place] [phone] Jessi Dueñas MD [address] [place], [place] [phone] Chronic pain of both knees (Primary Dx) [...] Description 07/26/2024 9:45 AM EDT Office Visit [facility] [address] [place] [address] Jessi Dueñas MD [address] [place] [address] documented as of this encounter Visit Diagnoses Diagnosis Chronic pain of both knees- Primary documented in this encounter Additional Health Concerns Assessment Noted Time PHQ-9 Depression Total Score: 20 023 9:49 AM EDT documented as of this encounter Care Teams Inspection Supervisor Relationship Specialty Start Date End Date Jessi Dueñas MD [address] [place] [address] PCP - General Family Medicine 11/24/20 Mikayla Bhagat Sales And Marketing Vice PresidentVice President Of Sales 05/09/23 documented as of this encounter
--- OUTSIDE RECORDS SUMMARY | 2024-06-19 13:55 | XMS_ITS | Encounter Summary ---
Author Organization [employer] [facility] Address [address] [facility] 7t [place] [address] Care Team Providers Care Light Out Examiner Name Role Phone Jessi Dueñas MD Primary Care Provider [phone] Encounter Details Date Type Department Care Team (Late Contact Info) Description 03/29/2022 Orders Only [facility]INE [address] [place] [address] Jessi Dueñas MD [address] [place] [address] [phone] Choking episode occurring at night (Primary Dx) [...] Description 07/26/2024 9:45 AM EDT Office Visit [facility] [address] [place] [address] [phone] Jessi Dueñas MD [address] [place] [address] documented as of this encounter Visit Diagnoses Diagnosis Choking episode occurring at night- Primary documented in this encounter Care Teams Light Out Examiner Relationship Specialty Start Date End Date Jessi Dueñas MD [address] [place], [place] [phone] PCP - General Family Medicine 11/24/20 Mikayla Bhagat GastroenterologistComputer Processing Scheduler 05/09/23 documented as of this encounter
--- OUTSIDE RECORDS SUMMARY | 2024-06-19 13:55 | XMS_ITS | Encounter Summary ---
Author Organization [facility] Address [address] [facility] 7 [place] [address] Care Team Providers Care Ditch Inspector Name Role Phone Jessi Dueñas MD Primary Care Provider [phone] Reason for Visit * Reason Comments Care Coordination C3 -SERGE edwards telephone call outreach Encounter Details Date Type Department Care Team (Latest Contact Info) Description 06/18/2024 Patient Outreach [facility] MEDICINE [address] [place] [address] Jessi Dueñas MD [address] [place] [address] Care Coordination (C3 TYRA-SERGE Doshi telephone call [...] Progress Notes * Alma Delia Doshi - 06/18/2024 9:19 AM EDT CHW Alma Delia Doshi placed outbound call to patient to follow up on SDOH needs. Patient's name, andaddress confirmed. CHW spoke to patient she is with behavioral health. Patient states is doing well. No further questions or concerns. CHW reinforced direct contact information or CM for any additional questions or concerns and extended clinic hours on Mondays and Wednesdays, and Walk-In Urgent Care Located in [facility] of [facility]. Patient provided with after-hours line for [facility], , which offer night time triage service and option to transfer to technology methodology consultant provider if needed. Patient verbalizes understanding, and able to repeat back to fha underwriter. A follow up call will be placed within 10 days, patient agrees with plan. documented in this encounter Plan of Treatment Upcoming Encounters Date Type Department Care Team (Late st Contact Info) Description 07/26/2024 9:45 AM EDT Office Visit [facility] MEDICINE [address] [place] [address] Jessi Dueñas MD [address] [place] [address] documented as of this encounter Visit Diagnoses Not on filedocumented in this encounter Additional Health Concerns Assessment Noted Time PHQ-9 Depression Total Score: 8 09/19/19 24 11:07 AM EDT documented as of this encounter Care Teams Ditch Inspector Relationship Specialty Start Date End Date Jessi Dueñas MD [address] [place] [address] PCP - General Family Medicine 11/24/20 Mikayla Bhagat Macaroni MakerFabrication Department Supervisor 05/09/23 documented as of this encounter
--- OUTSIDE RECORDS SUMMARY | 2024-06-19 13:55 | XMS_ITS | Encounter Summary ---
Author Organization [employer] [facility] Address [address] [facility] 7 [place] [address] Care Team Providers Care Patient Care Coordinator Name Role Phone Jessi Dueñas MD Primary Care Provider [phone] Reason for Visit * Reason Onset Date Comments Results 05/23/2023 Encounter Details Date Type Department Care Team ([facility] st Contact Info) Description 05/23/2023 Telephone [facility] MEDICINE [address] [place] [address] Jessi Dueñas MD [address] [place] [address] Results Social History Tobacco Use Types Packs/Day [...] T/C to pt. For below message through [employer] , pt. Informed regarding normal x-ray result. pt. [...] case of any new or worsening symptoms. [facility] hours are reviewed. Pt. Verbally agreed and understood. * Telephone Encounter - Paco Sylvester - 05/24/2023 3:59 PM EST Tc from pt returning call. Please contact at [phone] * Telephone Encounter - Yumiko Whitaker RN - 05/24/2023 12:47 PM EST Return T/C to pt. For bellow message Normal x-ray result. No answer. LVM to call back on [phone]. * Telephone Encounter - Bran Parker - 05/23/2023 4:41 PM EST TC from pt requesting call back regarding Results. Type of results: X-Ray Date when done: 05/16/23 Facility: [facility] documented in this encounter Plan of Treatment Upcoming Encounters Date Type Department Care Team (Late st Contact Info) Description 07/26/2024 9:45 AM EDT Office Visit [facility] MEDICINE [address] [place], [place] [phone] Jessi Dueñas MD [address] [place], [place] [phone] documented as of this encounter Visit Diagnoses Not on filedocumented in this encounter Additional Health Concerns Assessment Noted Time PHQ-9 Depression Total Score: 20 023 9:49 AM EDT documented as of this encounter Care Teams Patient Care Coordinator Relationship Specialty Start Date End Date Jessi Dueñas MD [address] [place] [address] PCP - General Family Medicine 11/24/20 Mikayla Bhagat Supervisor Buffing And PastingPhotographer Lithographic 05/09/23 documented as of this encounter
--- OUTSIDE RECORDS SUMMARY | 2024-06-19 13:55 | XMS_ITS | Encounter Summary ---
Author Organization [employer] Address [address] [facility] 7 [place] [address] Care Team Providers Care Mill Tender Washing Name Role Phone Jessi Dueñas MD Primary Care Provider [phone] Reason for Visit * Reason Comments Care Coordination C3 -SERGE edwards telephone call outreach Encounter Details Date Type Department Care Team (Latest Contact Info) Description 05/27/2024 Patient Outreach [facility] MEDICINE [address] [place] [address] Jessi Dueñas MD [address] [place] [address] Care Coordination (C3 TOM Doshi telephone call [...] outbound call to patient introducing herself from [facility] CM Department, in regards to offering [...] Wednesdays, and Walk-In Urgent Care Located in [facility] of [facility]. Patient providedwith after-hours line for [facility], , which offer night time triage service and option to transfer to stone layout marker provider if needed. Patient verbalizes understanding, and able to repeat back to typewriter tester. documented in this encounter Plan of Treatment Upcoming Encounters Date Type Department Care Team (Late st Contact Info) Description 07/26/2024 9:45 AM EDT Office Visit [facility] MEDICINE [address] [place] [address] Jessi Dueñas MD [address] [place] [address] documented as of this encounter Visit Diagnoses Not on filedocumented in this encounter Additional Health Concerns Assessment Noted Time PHQ-9 Depression Total Score: 8 09/19/19 24 11:07 AM EDT documented as of this encounter Care Teams Mill Tender Washing Relationship Specialty Start Date End Date Jessi Dueñas MD [address] [place] [address] PCP - General Family Medicine 11/24/20 Mikayla Bhagat Project OfficerFine Grader 05/09/23 documented as of this encounter
== END 2024-06-19 13:44 | disposition home or self-care (01) ==
LOC: HO.HWSM 11:21
PROVIDERS: PCP General Practice; Visit Provider Advanced Practice Midwife
DX: R10.84 Generalized abdominal pain (principal); Z97.5 Presence of (intrauterine) contraceptive device; K58.0 Irritable bowel syndrome with diarrhea; Z98.891 History of uterine scar from previous surgery; Z98.51 Tubal ligation status
CPT/HCPCS: 99213

== ENCOUNTER 2024-07-02 12:58 | Outpatient (REF) | payer MEDICAID, SELFPAY ==
--- NOTE | ~2024-07-02 | US_ITS ---
EXAMINATION: US PELVIS TRANSABDOMINAL AND TRANSVAGINAL HISTORY: Z97.5 - Presence of (intrauterine) contraceptive device COMPARISON: Correlation is made with an unenhanced CT of the pelvis dated 03/15/2022. TECHNIQUE: Transabdominal and endovaginal real-time 2D moya-scale ultrasound was performed. FINDINGS: Uterus: The uterus is normal in size, measuring 7.0 x 4.1 x 4.7 cm. Myometrium has a normal echotexture. No fibroids are identified. Endometrium: The endometrial stripe is not well visualized due to the presence of an IUD. The IUD is in the expected position in the endometrial cavity. There is a small amount of fluid in the cervix. Right ovary: The right ovary measures 4.5 x 3.0 x 3.3 cm. There is a 3.1 x 2.6 x 2.6 cm right ovarian cyst containing a smaller daughter cyst. Left ovary: The left ovary measures 2.2 x 1.3 x 2.3 cm. The left ovary is normal in size and echotexture. Pelvic fluid: none. US/US pelvic and transvaginal IMPRESSION: 1. IUD in expected position in the endometrial cavity. 2. 3.1 x 2.6 x 2.6 cm right ovarian cyst containing a smaller daughter cyst. Follow-up is suggested. Electronically signed by: Everett Rich MD 07/03/2024 07:08 AM EDT
--- OUTSIDE RECORDS SUMMARY | 2024-07-02 15:10 | XMS_ITS | Encounter Summary ---
Author Organization [employer] Address [address] [facility] 7 [place] [address] Care Team Providers Care Cutter Grinder Name Role Phone Jessi Dueñas MD Primary Care Provider [phone] Reason for Visit * Reason Onset Date [...] Encounter Details Date Type Department Care Team ([facility] st Contact Info) Description 06/03/2024 Refill [facility] MEDICINE [address] [place], [place] [phone] Jessi Dueñas MD [address] [place], [place] [phone] Fibromyalgia Social History Tobacco Use Types Packs/Day [...] Upcoming Encounters Date Type Department Care Team ([facility] st Contact Info) Description 07/26/2024 9:45 AM EDT Office Visit [facility] MEDICINE [address] [place] [address] Jessi Dueñas MD [address] [place] [address] documented as of this encounter Visit Diagnoses Diagnosis Fibromyalgia Unspecified myalgia and myositis documented in this encounter Additional Health Concerns Assessment Noted Time PHQ-9 Depression Total Score: 8 09/19/19 24 11:07 AM EDT documented as of this encounter Care Teams Cutter Grinder Relationship Specialty Start Date End Date Jessi Dueñas MD [address] [place] [address] PCP - General Family Medicine 11/24/20 Mikayla Bhagat Hydrographic SurveyorLoft Worker Pile Driving 05/09/23 documented as of this encounter
--- OUTSIDE RECORDS SUMMARY | 2024-07-02 15:10 | XMS_ITS | Encounter Summary ---
Author Organization [employer] Address [address] [facility] 7 [place] [address] Care Team Providers Care Creasing Machine Operator Name Role Phone Jessi Dueñas MD Primary Care Provider [phone] Reason for Visit * Reason Onset Date Comments Med Refill 07/02/2024 Encounter Details Date Type Department Care Team ([facility] st Contact Info) Description 07/02/2024 Refill [facility] MEDICINE [address] [place] [address] Jessi Dueñas MD [address] [place] [address] Fibromyalgia Social History Tobacco Use Types Packs/Day [...] Telephone Encounter - Lynne Arriaza RN - 07/02/2024 1:09 PM EDT [facility] reviewed, pt. Last picked up 28 day supply 06/03/24, rx due and pended * Telephone Encounter - Jose Luis Mathews - 07/02/2024 11:55 AM EDT TC from pt requesting medication refill. Medications needing refill : traMADol (Ultram) 50 MG tablet To be sent to: [facility] - [place], [place] - [address] [facility] documented in this encounter Plan of Treatment Upcoming Encounters Date Type Department Care Team (Late st Contact Info) Description 07/26/2024 9:45 AM EDT Office Visit [facility] MEDICINE [address] [place] [address] Jessi Dueñas MD [address] [place] [address] documented as of this encounter Visit Diagnoses Diagnosis Fibromyalgia Unspecified myalgia and myositis documented in this encounter Additional Health Concerns Assessment Noted Time PHQ-9 Depression Total Score: 8 09/19/19 24 11:07 AM EDT documented as of this encounter Care Teams Creasing Machine Operator Relationship Specialty Start Date End Date Jessi Dueñas MD [address] [place] [address] PCP - General Family Medicine 11/24/20 Mikayla Bhagat Manager TitleRubber Printing Machine Operator 05/09/23 documented as of this encounter
--- OUTSIDE RECORDS SUMMARY | 2024-07-02 15:10 | XMS_ITS | Encounter Summary ---
Author Organization [employer] Address [address] [facility] 7t [place] [address] Care Team Providers Care Hay Sorter Name Role Phone Jessi Deuñas MD Primary Care Provider [phone] Reason for Visit * Reason Onset Date Comments Nurse Triage 02/07/2023 Encounter Details Date Type Department Care Team ([facility] st Contact Info) Description 02/07/2023 Telephone [facility] MEDICINE [address] [place] [address] Jessi Dueñas MD [address] [place] [address] Nurse Triage Social History Tobacco Use Types [...] 02/07/2023 11:26 AM EST Triage call with [employer] Stretching Press Operator ID [id number] Pt reports ED visit @ [facility] 02/06/23 for abdominal pain and migraines. Report is requested from [facility] clinical inspector health care facilities. Pt reports was supposed to be getting [...] lower back pain states she went to [facility] last on 02/06 and did nothing. Patient speaks mohawk documented in this encounter Plan of Treatment Upcoming Encounters Date Type Department Care Team (Late st Contact Info) Description 07/26/2024 9:45 AM EDT Office Visit [facility] MEDICINE [address] [place] [address] Jessi Dueñas MD [address] [place] [address] documented as of this encounter Visit Diagnoses Not on filedocumented in this encounter Additional Health Concerns Assessment Noted Time PHQ-9 Depression Total Score: 20 023 9:49 AM EDT documented as of this encounter Care Teams Hay Sorter Relationship Specialty Start Date End Date Jessi Dueñas MD [address] [place] [address] PCP - General Family Medicine 11/24/20 Mikayla Bhagat [facility] LeadCash Applications Coordinator 05/09/23 documented as of this encounter
--- OUTSIDE RECORDS SUMMARY | 2024-07-02 15:10 | XMS_ITS | Encounter Summary ---
Author Organization [employer] Address [address] [facility] 7t [place] [address] Care Team Providers Care Forepart Rasper Name Role Phone Jessi Dueñas MD Primary Care Provider [phone] Reason for Referral * Consultation (Routine) - Closed Specialty Diagnoses / Procedures Referred By Contac t Referred To Contact Physical Therapy Diagnoses Acute bilateral low back pain without sciatica Chronic pain of both knees Bilateral hand pain Jessi Dueñas MD [address] [place] [address] Phone: tel: fax: [facility] [address] [facility] [address] [place], [place] Phone: tel: fax: Referral ID Status Reason Start Date Expiration Date V isits Requested Visits Authorized [id number] Closed Specialty Services Required 04/17/2024 04/17/2025 20 20 Encounter Details Date Type Department Care Team (Late st Contact Info) Description 04/17/2024 Orders Only [facility] MEDICINE [address] [place] [address] [phone] Jessi Dueñas MD [address] [place], [place] [phone] Acute bilateral low back pain without sciatica [...] Description 07/26/2024 9:45 AM EDT Office Visit [facility] MEDICINE [address] [place] [address] Jessi Dueñas MD [address] [place] [address] Scheduled Referrals Name Type Priority Associated Diagnoses [...] documented as of this encounter Care Teams Forepart Rasper Relationship Specialty Start Date End Date Jessi Dueñas MD [address] [place] [address] PCP - General Family Medicine 11/24/20 Mikayla Bhagat Repair ServicerEdger Automatic 05/09/23 documented as of this encounter
--- OUTSIDE RECORDS SUMMARY | 2024-07-02 15:10 | XMS_ITS | Encounter Summary ---
Author Organization [employer] Address [address] [facility] 7 [place] [address] Care Team Providers Care Administration Clerk Name Role Phone Jessi Dueñas MD Primary Care Provider [phone] Reason for Visit * Reason Onset Date Comments DME from [employer] 06/27/2024 Encounter Details Date Type Department Care Team ([facility] st Contact Info) Description 06/27/2024 Telephone [facility] MEDICINE [address] [place] [address] Jessi Dueñas MD [address] [place], [place] [phone] DME from [employer] Social History Tobacco Use Types Packs/Day Years [...] encounter Miscellaneous Notes * Telephone Encounter - Chasity Mckeon [place] - 06/27/2024 3:37 PM EDT Certificate or medical necessity and DME for Disposable underpads/bedpads and Gloves from Rahul placed on PCP desk for signature. documented in this encounter Plan of Treatment Upcoming Encounters Date Type Department Care Team (Late st Contact Info) Description 07/26/2024 9:45 AM EDT Office Visit [facility] MEDICINE [address] [place] [address] Jessi Dueñas MD [address] [place] [address] documented as of this encounter Visit Diagnoses Not on filedocumented in this encounter Additional Health Concerns Assessment Noted Time PHQ-9 Depression Total Score: 8 09/19/19 24 11:07 AM EDT documented as of this encounter Care Teams Administration Clerk Relationship Specialty Start Date End Date Jessi Dueñas MD [address] [place] [address] PCP - General Family Medicine 11/24/20 Mikayla Bhagat Manufacturer'S RepresentativeTrench Pipe Layer Helper 05/09/23 documented as of this encounter
--- OUTSIDE RECORDS SUMMARY | 2024-07-02 15:10 | XMS_ITS | Encounter Summary ---
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 documented in this encounter Plan of Treatment Upcoming Encounters Date Type Department Care Team (Late st Contact Info) Description 07/26/2024 9:45 AM EDT Office Visit [facility] MEDICINE [address] [place] [address] Jessi Dueñas MD [address] [place] [address] documented as of this encounter Visit Diagnoses Not on filedocumented in this encounter Additional Health Concerns Assessment Noted Time PHQ-9 Depression Total Score: 20 023 9:49 AM EDT documented as of this encounter Care Teams Python Engineer Relationship Specialty Start Date End Date Jessi Dueñas MD [address] [place] [address] PCP - General Family Medicine 11/24/20 Mikayla Bhagat Ortho NurseSprayer Insecticide 05/09/23 documented as of this encounter
--- OUTSIDE RECORDS SUMMARY | 2024-07-02 15:10 | XMS_ITS | Encounter Summary ---
Author Organization [employer] Address [address] [facility] 7t [place] [address] Care Team Providers Care Motorbike Courier Name Role Phone Jessi Dueñas MD Primary Care Provider [phone] Encounter Details Date Type Department Care Team ([facility] st Contact Info) Description 02/08/2023 Telephone [facility] MEDICINE [address] [place], [place] [phone] Jessi Dueñas MD [address] [place], [place] [phone] Social History Tobacco Use Types Packs/Day Years [...] Description 07/26/2024 9:45 AM EDT Office Visit [facility] MEDICINE [address] [place] [address] Jessi Dueñas MD [address] [place] [address] documented as of this encounter Visit Diagnoses Not on filedocumented in this encounter Additional Health Concerns Assessment Noted Time PHQ-9 Depression Total Score: 20 023 9:49 AM EDT documented as of this encounter Care Teams Motorbike Courier Relationship Specialty Start Date End Date Jessi Dueñas MD [address] [place] [address] PCP - General Family Medicine 11/24/20 Mikayla Bhagat Supervisor Aircraft CleaningAntisqueak Applier 05/09/23 documented as of this encounter
--- OUTSIDE RECORDS SUMMARY | 2024-07-02 15:10 | XMS_ITS | Encounter Summary ---
Author Organization [employer] [facility] Address [address] [facility] 7 [place] [address] Care Team Providers Care Electrical Technology Instructor Name Role Phone Jessi Dueñas MD Primary Care Provider [phone] Reason for Visit * Reason Onset Date Comments Results 05/23/2023 Encounter Details Date Type Department Care Team ([facility] st Contact Info) Description 05/23/2023 Telephone [facility] MEDICINE [address] [place] [address] Jessi Dueñas MD [address] [place] [address] Results Social History Tobacco Use Types Packs/Day [...] T/C to pt. For below message through [place] - [id number], pt. Informed regarding normal x-ray result. pt. [...] case of any new or worsening symptoms. [facility] hours are reviewed. Pt. Verbally agreed and understood. * Telephone Encounter - Paco Sylvester - 05/24/2023 3:59 PM EST Tc from pt returning call. Please contact at [phone] * Telephone Encounter - Yumiko Whitaker RN - 05/24/2023 12:47 PM EST Return T/C to pt. For bellow message Normal x-ray result. No answer. LVM to call back on [phone]. * Telephone Encounter - Bran Parker - 05/23/2023 4:41 PM EST TC from pt requesting call back regarding Results. Type of results: X-Ray Date when done: 05/16/23 Facility: [facility] documented in this encounter Plan of Treatment Upcoming Encounters Date Type Department Care Team (Late st Contact Info) Description 07/26/2024 9:45 AM EDT Office Visit [facility] MEDICINE [address] [place], [place] [phone] Jessi Dueñas MD [address] [place], [place] [phone] documented as of this encounter Visit Diagnoses Not on filedocumented in this encounter Additional Health Concerns Assessment Noted Time PHQ-9 Depression Total Score: 20 023 9:49 AM EDT documented as of this encounter Care Teams Electrical Technology Instructor Relationship Specialty Start Date End Date Jessi Dueñas MD [address] [place] [address] PCP - General Family Medicine 11/24/20 Mikayla Bhagat Game AttendantClinical Research Scientist 05/09/23 documented as of this encounter
--- OUTSIDE RECORDS SUMMARY | 2024-07-02 15:11 | XMS_ITS | Encounter Summary ---
Author Organization [employer] [facility] Address [address] [facility] 7 [place] [address] Care Team Providers Care Post Office Manager Name Role Phone Jessi Dueñas MD Primary Care Provider [phone] Reason for Visit * Reason Onset Date Comments Med Refill Tramadol refill denied 10/25/2023 Encounter Details Date Type Department Care Team (Late st Contact Info) Description 10/25/2023 Refill [facility] MEDICINE [address] [place] [address] Jessi Dueñas MD [address] [place] [address] Fibromyalgia Social History Tobacco Use Types Packs/Day [...] call her, when I get back from [place] and we can review this. Thank you! TC via P/I#[id number], unable to connect to the number, unable to leave message. Will forward message to PCP's M.A. to schedule a telephone appointment for patient as PCP requested. documented in this encounter Plan of Treatment Upcoming Encounters Date Type Department Care Team (Late st Contact Info) Description 07/26/2024 9:45 AM EDT Office Visit [facility] MEDICINE [address] [place], [place] [phone] Jessi Dueñas MD [address] [place] [address] documented as of this encounter Visit Diagnoses Diagnosis Fibromyalgia Unspecified myalgia and myositis documented in this encounter Additional Health Concerns Assessment Noted Time PHQ-9 Depression Total Score: 8 09/19/19 24 11:07 AM EDT documented as of this encounter Care Teams Post Office Manager Relationship Specialty Start Date End Date Jessi Dueñas MD [address] [place] [address] PCP - General Family Medicine 11/24/20 Mikayla Bhagat [facility] AssistantFlat Bed Operator 05/09/23 documented as of this encounter
--- OUTSIDE RECORDS SUMMARY | 2024-07-02 15:11 | XMS_ITS | Encounter Summary ---
Author Organization [employer] Address [address] [facility] 7 [place] [address] Care Team Providers Care Tire Changer Name Role Phone Jessi Dueñas MD Primary Care Provider [phone] Reason for Visit * Reason Comments Med Refill Encounter Details Date Type Department Care Team ([facility] st Contact Info) Description 10/25/2023 Refill [facility] MEDICINE [address] [place] [address] Anita Arriaga MD [address] [place] [address] Social History Tobacco Use Types Packs/Day Years [...] 9:45 AM EDT Office Visit [facility] MEDICINE [address] [place] [address] Jessi Dueñas MD [address] [place] [address] documented as of this encounter Visit Diagnoses Not on filedocumented in this encounter Additional Health Concerns Assessment Noted Time PHQ-9 Depression Total Score: 8 09/19/19 24 11:07 AM EDT documented as of this encounter Care Teams Tire Changer Relationship Specialty Start Date End Date Jessi Dueñas MD [address] [place] [address] PCP - General Family Medicine 11/24/20 Mikayla Bhagat Acid Strength InspectorBrim Plater 05/09/23 documented as of this encounter
--- OUTSIDE RECORDS SUMMARY | 2024-07-02 15:11 | XMS_ITS | Clinical Summary ---
Author Organization [employer] Address [address] [facility] [address] [place] [address] Care Team Providers Care Air Dispatcher Name Role Phone Jessi Dueñas MD Primary Care Provider [phone] Allergies Active Allergy Reactions Criticality Noted Date [...] Apply around the rectum 60 g 1 04/09/19 25 Active fluticasone (Flonase) 50 MCG/ACT nasal sprayIndication s:Allergic rhinitis, unspecified seasonality, unspecified trigger INHALE 2 SPRAYS IN EACH NOSTRIL ONCE DAILY DIRECTED 48 g 3 05/13/19 25 Active FLUoxetine (PROzac) 40 MG capsule Take 1 capsule (40 mg) by mouth Once per day. 30 capsule 11 05/20/19 25 026 Active 27-1 MG tablet Take 1 tablet by mouth in the morning. 90 tablet 3 05/20/19 25 Active Mometasone Furoate (Asmanex HFA) 200 MCG/ACT aerosol INHALE 1 PUFF BY MOUTH TWICE DAILY RINSE MOUTH AFTER USING. 13 g 1 06/11/19 25 Active rOPINIRole (Requip) 4 MG tabletIndicatio ns:Restless leg syndrome Take 1 tablet (4 mg) by mouth at bedtime. 90 tablet 2 06/15/19 25 Active propranolol (Inderal) 10 MG tablet Take 1 tablet (10 mg) by mouth 2 times daily for 7 days. 14 tablet 06/19/19 25 Active Mometasone Furoate (Asmanex HFA) 200 MCG/ACT [...] days. 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/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 Labs showed low titer [...] has already asked 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 To go to medical records and [...] (05/19/2023 10:31 AM EST): Plan to see [facility] [place] rheumatology in June 2023, JUANITO + , [...] 12:59 PM EST): Will send referral to [facility] [place] [place] rheumatology, JUANITO + , whole body pain, fatigue, all worse after two episodes of C diff Still likely fibromyalgia Recommend avoidance of marijuana and cocaine, drugs purchased on the street Assessment & Plan (01/04/2023 7:56 PM EDT): Will send referral to [facility] [place] rheumatology, JUANITO + , whole body pain, [...] aware of side effects, somnolence, 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 [address] [place] [address] Jessi Dueñas MD Fibromyalgia 06/27/[address] [facility] [address] [place] [address] Jessi Dueñas MD DME from [place] 06/19/2024 Orders Only GENERIC EXTERNAL DATA DEPARTMENT Provider, [facility] External Data 06/18/2024 3:20 PM EDT Office Visit [facility] [address] [place] [phone] Name, MD Ignacio Akshauna (Primary Dx) 06/18/[address] [facility] [address] [place] [phone] Jessi Dueñas MD Care Coordination (C3 [facility] Alma Delia Doshi telephone call outreach) 06/17/[address] [facility] [address] [place] [phone] Jessi Dueñas MD LETTER 06/14/[address] [facility] [address] [place] [phone] Jessi Dueñas MD Restless leg syndrome 06/14/2024 Population Health Risk Score [facility] (C3) Department [address] [phone] Provider, Population Health Generic 06/12/[address] [facility] [address] [place] [address] Jessi Dueñas MD Medication Question; Med Refill 06/08/[address] [facility] [address] [place] [address] Jessi Dueñas MD 06/03/[address] [facility] [address] [place] [address] Jessi Dueñas MD Fibromyalgia 05/30/2024 Patient Outreach [address] [address] Jessi Dueñas MD Care Coordination (C3 -[facility] telephone call outreach) 05/30/2024 Orders Only [facility] External Provider, [facility] 05/29/2024 Patient Outreach [address] [address] Jessi Dueñas MD Transition Of Care (Tcm) (ED visit requested) 05/29/[address] [address] Jessi Dueñas MD Med Refill 05/29/[address] [address] Jessi Dueñas MD Fibromyalgia 05/28/2024 Patient Outreach [address] [address] Jessi Dueñas MD Transition Of Care (Tcm) (ERRORr) 05/27/2024 Patient Outreach [address] [address] Jessi Dueñas MD Care Coordination (C3 -[facility] telephone call outreach /) 05/27/2024 Patient Outreach [address] [address] Jessi Dueñas MD Care Coordination (C3 [facility] telephone call outreach) 05/27/[address] [address] Jessi Dueñas MD Care Management (C3CM- chart review) 05/25/2024 9:40 AM EST Office Visit [facility] [address] [address] Ignacio Rivera MD Diarrhea, unspecified type (Primary Dx); Nausea and vomiting, unspecified vomiting type 05/25/2024 Orders Only GENERIC EXTERNAL DATA DEPARTMENT Provider, Generic External Data 05/17/2024 11:00 AM EST Office Visit [address] [address] Jessi Dueñas MD Weight loss of more than 10% body weight (Primary Dx); Post concussion syndrome; Gastroesophageal reflux disease without esophagitis; Bipolar affective disorder, currently depressed, moderate (CMS/HCC); Fibromyalgia 05/17/2024 Orders Only GENERIC EXTERNAL DATA DEPARTMENT Provider, Generic External Data 05/17/2024 Travel 05/13/[address] [facility] [address] [place] [address] Jessi Dueñas MD [facility] (Disposable Underpad/Chux Large) 05/12/[address] [facility] [address] [place] [address] Jessi Dueñas MD Allergic rhinitis, unspecified seasonality, unspecified trigger 05/02/[address] [facility] [address] [place] [address] Jessi Dueñas MD [facility] (Disposable underpad, large/1 unit = each, 248 per mo.) 04/29/[address] [facility] [address] [place] [address] Jessi Dueñas MD Fibromyalgia 04/17/[address] [facility] [address] [place] [phone] Jessi Dueñas MD 04/17/[address] [facility] [address] [place] [phone] Jessi Dueñas MD Acute bilateral low back pain without sciatica (Primary Dx); Polyarthralgia; Chronic pain of both knees; Bilateral hand pain 04/11/[address] [facility] [address] [place] [address] Jessi Dueñas MD Referral 04/09/2024 11:30 AM EST Office Visit [facility] [address] [place] [phone] Jessi Dueñas MD Acute right ankle pain (Primary Dx); Weight loss of more than 10% body weight; Bipolar disorder, current episode mixed, moderate (CMS/HCC); Mild persistent asthma without complication; Incontinence of feces, unspecified fecal incontinence type; Post concussion syndrome 04/09/[address] [facility] [address] [place] [address] Jessi Dueñas MD 04/09/[address] [facility] [address] [place], [place] [phone] Jessi Dueñas MD Durable Medical Equipment (L&C Form: Boost) 04/09/2024 Travel 04/04/2024 Telephone [facility] [address] [place] [address] Jessi Dueñas MD Medication Question 04/04/2024 Refill [facility] [address] [place], [place] [phone] Jessi Dueñas MD Fibromyalgia from Last 3 Months Immunizations Name Administration [...] Upcoming Encounters Date Type Department Care Team ([facility] st Contact Info) Description 07/26/2024 9:45 AM EDT Office Visit [facility] [address] [place] [address] Jessi Dueñas MD [address] [place], [place] [phone] Health Maintenance Due Date Last Done Comments Alcohol/Substance Use Screening 1994 Hepatitis B Vaccines (1 of 3 - 19+ 3-dose series) 2001 Pneumococcal Vaccine: Pediatrics (0 to 5 Years) and At-Risk Patients (6 to 49) Years) (1 of 2 - PCV) 2001 COVID-19 Vaccine (2023- season) 2023 09/19/2023, 07/06/2021, 08/10/2020, Additional history [...] Procedure Name Priority Date/Time Associated Diagnosis Comments BACTERIAL VAGINOSIS PANEL Routine 06/19/2024 12:00 AM EDT CHLAMYDIA/N. GONORRHOEAE RNA, TMA, UROGENITAL Routine 06/19/2024 12:00 AM EDT MR MRCP Routine 05/30/2024 7:29 AM EST [...] Recently Relevant to Health Maintenance Results * (ABNORMAL) Bacterial Vaginosis (06/19/2024 12:00 AM EDT) TRICHOMONAS VAGINALIS DETECTION BY PCR NOT DETECTED Not Detect [facility] BACTERIAL VAGINOSIS DETECTION BY PCR POSITIVE(A) Negative [facility] Comment:The BV organism targ ets of the Xpert Xpress MVP test can becommensal in women; Xpert Xpress MVP positive results forbacterial vaginosis should be considered in conjunction withother clinical and patient information to determine thedisease status. Organisms that are not detected by the XpertXpress MVP test have also been reported to be associatedwith BV and aerobic vaginitis.The Xpert Xpress MVP test performance has not been evaluatedin patients under the age of 14. LATANYA GROUP DETECTION BY PCR NOT DETECTED Not Detect [facility] Latanya glab krusei PCR NOT DETECTED Not Detect [facility] 06/19/2024 06/19/2024 us Generic External Data Provider LAB MICROBIOLOGY - GENERAL ORDERABLES Final Result [facility] [address] [place] [address] [phone] * Chlamydia/N. Gonorrhoeae RNA, TMA, Urogenitial (06/19/2024 12:00 AM EDT) CT PCR NOT DETECTED Not Detect. [facility] Comment:A not detected test result does not exclude the possibilityof infection because test results can be affected byimproper specimen collection, concurrent antibiotic therapy,or the number of organisms in the specimen which may bebelow the sensitivity of the test. As with many diagnostictests, results from the Xpert CT/NG assay should beinterpreted in conjunction with other laboratory andclinical data available to the clinician.Xpert CT/NG performance has not been evaluated in patientsless than 14 years of age. The assay should not be used forthe evaluationof suspected sexual abuse or for other medico-legalindications. Additional testing is recommended in anycircumstance when false positive or false negative resultscould lead to adverse medical, social or psychologicalconsequences. NG PCR NOT DETECTED Not Detect. [facility] Comment:A not detected test result does not exclude the possibilityof infection because test results can be affected byimproper specimen collection, concurrent antibiotic therapy,or the number of organisms in the specimen which may bebelow the sensitivity of the test. As with many diagnostictests, results from the Xpert CT/NG assay should beinterpreted in conjunction with other laboratory andclinical data available to the clinician.Xpert CT/NG performance has not been evaluated in patientsless than 14 years of age. The assay should not be used forthe evaluationof suspected sexual abuse or for other medico-legalindications. Additional testing is recommended in anycircumstance when false positive or false negative resultscould lead to adverse medical, social or psychologicalconsequences. 06/19/2024 06/19/2024 Narrative [facility] - 06/20/2024 3:48 AM EDT Vaginal us Generic External Data Provider LAB MICROBIOLOGY - GENERAL ORDERABLES Final Result Performing Organization Address City/State/[facility] Co de Phone Number [facility] [address] [place] [address] [phone] * MR MRCP (05/30/2024 7:29 AM EST) Anatomical Region Laterality Modality Lower Extremities Left Magnetic Reson ance 05/30/2024 7:29 AM EST Narrative 05/30/2024 8:24 AM EST ? [facility] ?[address] ?[place] [address] ? Magnetic Resonance Report ? Signed ? Patient: Kera Armstrong ?MR#: MM ?? [id number] ? : 1980 ?Acct:[id number] ? Age/Sex: 43 / F ?ADM Date: 05/30/24 ? Loc: HO.MRI ? Attending Dr: Ashley PALACIOSP-BC ? Ordering Physician: Ashley Duncan TRUCK ENGINE ASSEMBLER-BC ?? Date of Service: 05/30/24 ?? Procedure(s): MR MRCP ?? Accession Number(s): [id number] ? cc: Jessi Dueñas; Ashley Duncan TRUCK ENGINE ASSEMBLER-BC ? EXAMINATION: ??MRCP ? HISTORY: R63.4 - [...] MD ? Signed By: ?<Electronically signed by Evreett Rich MD in OV> ?05/30/24 08 ? DD/ 8 ? TD/TT: 05/30/24 08 ? Drive Tester: ? Procedure Note Cy, Image - 05/30/2024 [place] [address] Magnetic Resonance Report Signed Patient: Kera ArmstrongMR#: [id number] : 1980Acct:[id number] Age/Sex: 43 / FADM Date: 05/30/24 Loc: HO.MRI Attending Dr: Ashley AZEVEDO Ordering Physician: Ashley Duncan Date of Service: 05/30/24 Procedure(s): MR MRCP Accession Number(s): [id number] cc: Jessi Dueñas; Ashley DuncanP- EXAMINATION: MRCP HISTORY: R63.4 - Abnormal weight [...] Everett Rich MD 05/30/2024 08:21 AM EST Dictated By: Everett Rich MD Signed By: <Electronically signed by Everett Rich MD in OV> 05/30/24 0821 DD/ 0729 TD/TT: 05/30/[address] Tester: [facility] External Provider IMG MRI PROCEDURES Final Result * SARS-CoV-2 RNA, Influenza A/B, and RSV RNA, Ql NAAT (05/25/2024 11:59 PM EST) Influenza A PCR NEGATIVE Negative [facility] Influenza B PCR NEGATIVE Negative [facility] Resp Syncy Virus RNA Qual PCR NEGATIVE Negative [facility] SARS COV2 PCR NEGATIVE Negative [facility] Comment:All test results mus [...] use by authorized laboratories.Testing performed on the [employer] GeneXpert utilizingreal-time RT-PCR.All SARS CoV2 and positive influenza A/B results arereported to [facility]. 05/25/2024 11:5 9 PM EST 05/26/2024 12:02 AM EST us Generic External Data Provider LAB MICROBIOLOGY - GENERAL ORDERABLES Final Result [facility] [address] [place] [address] [phone] * (ABNORMAL) CBC auto differential (05/25/2024 11:59 PM EST) White Blood Count 7.4 4.8 - 10.8 X10*3/uL [facility] Red Blood Count 3.94(L) 4.20 - 5.50 X10*6/uL [facility] Hemoglobin 12.4 12.0 - 16.0 g/dl [facility] Hematocrit 35.1(L) 37.0 - 47.0 % [facility] Mean Corpuscular Volume 89.1 80.0 - 98.0 fL [facility] Mean Corpuscular Hemoglobin 31.5 27.0 - 33.0 pg [facility] Mean Corpuscular HGB Conc 35.3(H) 31.0 - 35.0 g/dl [facility] Red Cell Distribution Width 12.4 11.0 - 16.0 % [facility] Platelet Count 284 160 - 400 X10*3/uL [facility] Mean Platelet Volume 9.2(L) 9.4 - 12.3 fL [facility] Neutrophils Percent Auto 43.6(L) 45 - 73 % [facility] Imm Gran Pct Auto 0.1 0.0 - 0.4 % [facility] Lymphocytes Percent Auto 49.7(H) 20 - 40 % [facility] Monocytes Percent Auto 6.3 2 - 11 % [facility] Eosinophils Percent Auto 0.3 0 - 4 % [facility] Basophils Percent Auto 0.0 0 - 2 % [facility] NRBC Pct Auto 0.0 0.0 - 0.2 /100WBC [facility] Neutrophils Absolute Auto 3.2 2.0 - 8.3 x10*3/uL [facility] Imm Gran Abs Auto 0.01 0.00 - 0.03 X10*3/uL [facility] Lymphocytes Absolute Auto 3.7 1.2 - 4.9 X10*3/uL [facility] Monocytes Absolute Auto 0.5 0.1 - 1.2 X10*3/uL [facility] Eosinophils Absolute Auto 0.0 0.0 - 0.4 X10*3/uL [facility] Basophils Absolute Auto 0.0 0.0 - 0.2 X10*3/uL [facility] NRBC Abs Auto 0.000 0.0 - 0.012 X10*3/uL [facility] 05/25/2024 11:5 9 PM EST 05/26/2024 12:02 AM EST us Generic External Data Provider LAB BLOOD ORDERAB LES Final Result Performing Organization Address City/State/[facility] Co de Phone Number [facility] [address] [place] [phone] * hCG, Total, Quantitative (05/25/2024 11:59 PM EST) HCG Quantitative <2 mIU/mL [facility] Comment:Weeks post LMP Appro ximate hCG(Last Menstrual Period) Range (mIU/ml)3 - 4 weeks 9 - 1304 - 5 weeks 75 - 2,6005 - 6 weeks 850 - 20,8006 - 7 weeks 4000 - 100,2007 - 12 weeks 11,500 - 289,97898 - 16 weeks 18,300 - 137,99394 - 29 weeks (2nd trimester) 1,400 - 53,41382 - 41 weeks (3rd trimester) 940 - [...] Final Result Performing Organization Address [facility]/ZIP Co de Phone Number [facility] [address] [place] [phone] * Magnesium (05/25/2024 11:59 PM EST) Magnesium 2.0 1.6 - 2.6 mg/dL [facility] 05/25/2024 11:5 9 PM EST 05/26/2024 12:02 AM EST Generic External Data Provider LAB BLOOD ORDERAB LES Final Result Performing Organization Address [facility] Co de Phone Number [facility] [address] [place] [phone] * Lipase (05/25/2024 11:59 PM EST) Only the most recent of2 resultswithin the time period is included. Lipase 33 8 - 78 U/L [facility] 05/25/2024 11:5 9 PM EST 05/26/2024 12:02 AM EST Generic External Data Provider LAB BLOOD ORDERAB LES Final Result Performing Organization Address [facility] Co de Phone Number [facility] [address] [place] [phone] * Hepatic Function Panel (05/25/2024 11:59 PM EST) Only the most recent of2 resultswithin the time period is included. Bilirubin, Total 0.5 0.0 - 1.0 mg/dL [facility] Bilirubin, Direct 0.2 0.0 - 0.5 mg/dL [facility] Aspartate Amino Transferase 21 5 - 31 U/L [facility] Alanine Aminotransferase 21 0 - 31 U/L [facility] Total Protein 6.9 6.5 - 8.0 g/dL [facility] Albumin Level 4.0 3.5 - 5.0 g/dL [facility] Alkaline Phosphatase 52 39 - 117 U/L [facility] 05/25/2024 11:5 9 PM EST 05/26/2024 12:02 AM EST us Generic External Data Provider LAB BLOOD ORDERAB LES Final Result Performing Organization Address City/State/[facility] Co de Phone Number [facility] [address] [place] [phone] * (ABNORMAL) Basic Metabolic Panel (05/25/2024 11:59 PM EST) Pathologist [facility] Sodium 140 135 - 145 mmol/L [facility] Potassium 3.6 3.3 - 5.1 mmol/L [facility] Chloride 110(H) 96 - 108 mmol/L [facility] Carbon Dioxide 23 22 - 29 mmol/L [facility] Anion Gap 11(L) 12 - 20 [facility] Urea Nitrogen (BUN) 14 9 - 16 mg/dL [facility] Creatinine, Serum 0.83 0.5 - 1.4 mg/dL [facility] Creatinine Clr Calc Pharmacy 74.7 [facility] Comment:Provided height and weight: 170.18 cm,53.1 kg.eGFR (calculated from the MDRD study equation) and eCrCl(calculated from the Cockcroft-Gault equation) are based ondifferent parameters and may not yield comparable results.If eCrCl result is absurd, please check patient'sheight/weight. Estimated Glomerular Filt Rate >60 [facility] Comment:Chronic Kidney Disea se: Estimated GFR < 60 mL/min/1.20q6Swccld Kidney Disease: Estimated GFR < 15 mL/min/1.73m2 Glucose 100 60 - 115 mg/dL [facility] Calcium 8.8 8.4 - 10.2 mg/dL [facility] 05/25/2024 11:5 9 PM EST 05/26/2024 12:02 AM EST Generic External Data Provider LAB BLOOD ORDERAB LES Final Result Performing Organization Address [facility] Phone Number [facility] [address] [place] [phone] * POCT Rapid Influenza B BOYER ID NOW (05/25/2024 9:52 AM EST) Influenza B Negative Negative, Indeterminate [facility] QC Media Lot # [id number] [facility] Lot# Expiration Date [facility] Swab 05/25/2024 9:52 AM EST us Ignacio Rivera MD POINT OF CARE TEST ENTER/EDIT OR DERABLES Final Result Performing Organization Address [facility] de Phone Number [facility] [address] [place] [phone] * POCT Rapid Influenza A BOYER ID NOW (05/25/2024 9:51 AM EST) Influenza A Negative Negative, Indeterminate [facility] QC Media Lot # [id number] [facility] Lot# Expiration Date [facility] Swab 05/25/2024 9:51 AM EST us Ignacio Rivera MD POINT OF CARE TEST ENTER/EDIT OR DERABLES Final Result Performing Organization Address [facility]/State/ZIP Co de Phone Number [facility] [address] [place] [address] [phone] * POCT Rapid Covid-19 BinaxNOW (05/25/2024 9:51 AM EST) Pathologist [facility] Rapid COVID Ag Negative QC Media Lot # [id number] Lot# Expiration Date [id number] Swab 05/25/2024 9:51 AM EST us Ignacio Rivera MD POINT OF CARE TEST ENTER/EDIT OR DERABLES Final Result * VITAMIN D 25-OH (D2 AND D3) (05/17/2024 9:40 AM EST) Pathologist [facility] Vitamin D, 25-OH, D2 <4 ng/mL [facility] Comment:This test was develo ped and its analytical performancecharacteristics have been determined by [employer] [place], [place]. It hasnot been cleared or approved by the U.S. Food and DrugAdministration. This assay has been validated pursuantto the CLIA regulations and is used for clinicalpurposes.THIS TEST WAS PERFORMED AT:[employer] [id number] [place] [address]YHYXOIBKHANG MADRID MD,PHD Vitamin D, 25-OH, D3 31 ng/mL [facility] Comment:This test was develo ped and its analytical performancecharacteristics have been determined by [employer] [place], [place]. It hasnot been cleared or approved by the U.S. Food and DrugAdministration. This assay has been validated pursuantto the CLIA regulations and is used for clinicalpurposes. Vitamin D, 25-OH, Total 31 30 - 100 ng/mL [facility] Comment:Vitamin D, 25-Hydrox y reports [...] = 30 ng/mL.For additional information, please refer tohttp://education.[employer].com/faq/TFB870(This link is being provided for informational/educational purposes only.) 05/17/2024 9:40 AM EST 05/17/2024 9:40 AM EST Generic External Data Provider LAB BLOOD ORDERAB LES Final Result Performing Organization Address [facility] Co de Phone Number [facility] [address] [place] [phone] * Vitamin B12 (Cobalamin) and Folate Panel, Serum (05/17/2024 9:40 AM EST) Vitamin B12 474 200 - 900 pg/mL [facility] Comment:NORMAL 200-900 PG/ML INDETERMINATE 160-199 PG/ML DEFICIENT < 160 PG/ML Folate 15.2 > or = 4.0 ng/mL [facility] Comment:Reference Values:> o r = 4.0 ng/mL< 4.0 ng/mL suggests folate deficiency Methotrexate, aminopterin and folinic acid(leucovorin) are chemotherapeutic agents whose molecularstructures are similar to folate; therefore, the Architectfolate assay cannot be used for patients using these drugs. 05/17/2024 9:40 AM EST 05/17/2024 9:40 AM EST [employer] External Data Provider LAB BLOOD ORDERAB LES Final Result Performing Organization Address [facility] Co de Phone Number [facility] [address] [place] [phone] * TSH with Reflex to Free T4 (05/17/2024 9:40 AM EST) TSH reflex Free T4 1.12 0.32 - 4.0 uIU/mL [facility] 05/17/2024 9:40 AM EST 05/17/2024 9:40 AM EST Generic External Data Provider LAB BLOOD ORDERAB LES Final Result Performing Organization Address [facility] Co de Phone Number [facility] [address] [place] [phone] Hepatitis Panel, General (05/17/2024 9:40 AM EST) Hepatitis A IgM Nonreactive Nonreactive [facility] Comment:IgM antibodies to AMAYA V not detected; does not exclude earlyacute or recovered HAV infection. ~Hepatitis B Surface Antibody REACTIVE Nonreactive [facility] Comment:REACTIVE: > 11.99 mI U/mL Hepatitis B Core Antibody Nonreactive Nonreactive [facility] Hepatitis C Antibody Nonreactive Nonreactive [facility] Comment:Antibodies to HCV no t detected; does not exclude early acuteHCV infection. Hepatitis B Surface Ag Negative Negative [facility] 05/17/2024 9:40 AM EST 05/17/2024 9:40 AM EST Generic External Data Provider LAB BLOOD ORDERAB LES Final Result Performing Organization Address [facility] de Phone Number [facility] [address] [place] [phone] * HIV-1/2 Antigen and Antibodies, Fourth Generation, with Reflexes (05/17/2024 9:40 AM EST) HIV AB/AG Nonreactive Nonreactive [facility] Comment:HIV-1 p24 Ag and/or HIV-1/HIV-2 Ab not detected.A test result that is nonreactive does not exclude thepossibility of exposure to or infection with HIV-1 and/orHIV-2. Nonreactive results in this assay for individualswith prior exposure to HIV-1 and/or HIV-2 may be due toantigen and antibody levels that are below the limit ofdetection of this assay.The [employer] HIV Ag/Ab Combo assay result andsupplemental assay results should be interpreted inconjunction with the patient's clinical presentation,history and other laboratory results. If the results areinconsistent with clinical evidence, additional testing issuggested to confirm the result. 05/17/2024 9:40 AM EST 05/17/2024 9:40 AM EST us Generic External Data Provider LAB BLOOD ORDERAB LES Final Result Performing Organization Address City/State/[facility] Co de Phone Number [facility] [address] [place] [address] [phone] * XR Ankle 3+ Views Right (04/09/2024 12:22 PM EST) Anatomical Region Laterality Modality Lower Extremities, Ankle Right Radiogr aphic Imaging 04/09/2024 12:2 2 PM EST Narrative 04/09/2024 12:45 PM EST ?[facility] ?[address] ?[place] [address] ?XRay Report ? Signed ? Patient: Kera Armstrong ?MR#: MM ?? [id number] ? : 1980 ?Acct:[id number] ? Age/Sex: 43 / F ?ADM Date: 04/09/24 ? Loc: HO.HHCX ? Attending Dr: Jessi Dueñas MD ? Ordering Physician: Jessi Dueñas ?? Date of Service: 04/09/24 ?? Procedure(s): XR ankle RT min 3V ?? Accession Number(s): [id number] ? cc: Jessi Dueñas ? EXAMINATION: ?? [...] DD/ 1222 ? TD/TT: 04/09/24 1231 ? Drive Tester: MSM ? Procedure Note Donotuseinterpreter, Image - 04/09/[address] [address] XRay Report Signed Patient: Kera ArmstrongMR#: [id number] : 1980Acct:[id number] Age/Sex: 43 / FADM Date: 04/09/24 Loc: HO.HHCX Attending Dr: Jessi Dueñas MD Ordering Physician: Jessi Dueñas Date of Service: 04/09/24 Procedure(s): XR ankle RT min 3V Accession Number(s): [id number] cc: Jessi Dueñas EXAMINATION: XR ANKLE, RIGHT [...] 04/09/24 1242 DD/ 1222 TD/TT: 04/09/[address] Tester: MSM Jessi Dueñas MD IMG XR PROCEDURES Edited Resul t - Final * BI Mammogram Screening Tomosynthesis Bilateral (09/28/2023 12:08 PM EDT) Anatomical Region Laterality Modality Breast Bilateral Mammography 09/28/2023 12:0 8 PM EDT Narrative 10/27/2023 9:20 AM EDT ? [facility] ? [address] ?[place] [address] ? Mammography Report ? Signed ? Patient: Lc Nicole,Kera ?MR#: MM ?? [id number] ? : 1980 ?Acct:[id number] ? Age/Sex: 42 / F ?ADM Date: 09/28/23 ? Loc: HO.MAMMO ? Attending Dr: Jessi Dueñas MD ? Ordering Physician: Anita Arriaga MD ?Re ?? sults: 1Negative ? Date of Service: 09/28/23 ?Follow Up: 1 Year From Orig ?? inal Mammogram ? Procedure(s): MM tomosynthesis screening BI ?? Accession Number(s): [id number] ? cc: Jessi Dueñas; Anita Arriaga MD [...] 0916 ? DD/ 1208 ? TD/TT: ? Drive Tester: ? Procedure Note Donotcheyenneinterpreter, Image - 10/27/2023 [place] [facility] [address] [place] [address] Mammography Report Signed Patient: Kera ArmstrongMR#: [id number] : 1980Acct:[id number] Age/Sex: 42 / FADM Date: 09/28/23 Loc: [facility] Attending Dr: Jessi Dueñas MD Ordering Physician: Anita Arriaga sults: 1Negative Date of Service: 09/28/23Follow Up: 1 Year From Orig inal Mammogram Procedure(s): tomosynthesis screening BI Accession Number(s): [id number] cc: Jessi Dueñas; Anita Arriaga MD EXAMINATION: SCREENING DIGITAL BREAST TOMOSYNTHESIS, BILATERAL CLINICAL INFORMATION: [...] in OV> 10/27/23 0916 DD/ 1208 TD/TT: Drive Tester: us Anita Roca MD IMG BI PROCEDURES [...] was manually screened according to routine procedures. Umbrella Tipper Machine : SEE COMMENT [facility] Comment: KN, CT(ASCP) CT screening location: [address] ??[address] Interpretation/R esult: Negative for intraepithelial lesion or malignancy. [facility] LMP: NONE GIVEN [facility] Prev. BX: NONE GIVEN [facility] Prev. PAP: NONE [facility]IVEN [facility] SOURCE: None given [facility] Statement Of Adequacy: SEE COMMENT [facility] Comment: Satisfactory for evaluation. Endocervical/transformation zone component absent. Partially obscuring blood 02/22/2021 us Jessi Dueñas MD LAB PATHOLOGY ORDERABLES Final Result Performing Organization Address [facility] Co de Phone Number [facility] [address] * HPV mRNA E6/E7 REFLEX TO HPV 16, 18/45 (02/22/2021 12:00 AM EST) HPV nRNA E6/E7 Not Detected Not Detected [facility] Comment: Methodology: Stenciler-Mediated Amplification This assay detects E6/E7 viral messenger RNA (mRNA) from 14 high-risk HPV types (16,18,31,33,35,39,45,51,52,56,58,59,66,68). ? The analytical performance characteristics of this assay have been determined by [employer]. The modifications have not been cleared or approved by the FDA. This assay has been validated pursuant to the CLIA regulations and is used for clinical purposes. ?? For additional information, please refer to http://education.Furious/faq/QEK734j3 (This link if provided for information/ educational purposes only.) 02/22/2021 us Jessi Dueñas MD LAB CYTOLOGY ORDERABLES Final Result Performing Organization Address [facility] de Phone Number [facility] [address] from Last 3 Months or Most Recently Relevant to Health Maintenance Insurance [facility] C3 HSN PARTIAL Care Teams Air Dispatcher Relationship Specialty Start Date End Date Jessi Dueñas MD [address] [place] [phone] PCP - General Family Medicine 11/24/20 Mikayla Bhagat Dispatcher Maintenance ServiceData Analyst Etl Developer 05/09/23
--- OUTSIDE RECORDS SUMMARY | 2024-07-02 15:11 | XMS_ITS | Encounter Summary ---
Author Organization [facility] Address [address] [facility] 7 [place] [address] Care Team Providers Care Command And Control Specialist Name Role Phone Jessi Dueñas MD Primary Care Provider [phone] Reason for Visit * Reason Onset Date Comments Referral 12/23/2022 Encounter Details Date Type Department Care Team ([facility] st Contact Info) Description 12/23/2022 Telephone [facility] [address] [place] [address] Jessi Dueñas MD [address] [place] [address] Referral Social History Tobacco Use Types Packs/Day [...] have interpreters. Any questions, contact pt at [phone] (Japanese) documented in this encounter Plan of Treatment Upcoming Encounters Date Type Department Care Team (Late st Contact Info) Description 07/26/2024 9:45 AM EDT Office Visit [facility] [address] [place] [address] Jessi Dueñas MD [address] [place], [place] [phone] documented as of this encounter Visit Diagnoses Not on filedocumented in this encounter Additional Health Concerns Assessment Noted Time PHQ-9 Depression Total Score: 19 023 2:59 PM EST documented as of this encounter Care Teams Command And Control Specialist Relationship Specialty Start Date End Date Jessi Dueñas MD [address] [place], [place] [phone] PCP - General Family Medicine 11/24/20 Mikayla Bhagat Gauge MakerInstrument Operator 05/09/23 documented as of this encounter
--- OUTSIDE RECORDS SUMMARY | 2024-07-02 15:11 | XMS_ITS | Encounter Summary ---
Author Organization [facility] Address [address] [facility] 7t [place] [address] Care Team Providers Care Microstrategy Architect Developer Name Role Phone Jessi Dueñas MD Primary Care Provider Encounter Details Date Type Department Care Team (Late Contact Info) Description 03/29/2022 Orders Only [facility] [address] [place] [phone] Jessi Dueñas MD [address] [place] [address] [phone] Choking episode occurring at night (Primary Dx) [...] Description 07/26/2024 9:45 AM EDT Office Visit [facility] [address] [place] [address] [phone] Jessi Dueñas MD [address] [place] [address] documented as of this encounter Visit Diagnoses Diagnosis Choking episode occurring at night- Primary documented in this encounter Care Teams Microstrategy Architect Developer Relationship Specialty Start Date End Date Jessi Dueñas MD [address] [place], [place] [phone] PCP - General Family Medicine 11/24/20 Mikayla Bhagat Mold Filling OperatorAeronautical Design Engineer 05/09/23 documented as of this encounter
--- OUTSIDE RECORDS SUMMARY | 2024-07-02 15:11 | XMS_ITS | Encounter Summary ---
Author Organization [facility] Address [address] [facility] 7t [place] [address] Care Team Providers Care Help Desk Operator Name Role Phone Jessi Dueñas MD Primary Care Provider [phone] Reason for Visit * Reason Onset Date Comments Call Back Request 01/23/2024 Encounter Details Date Type Department Care Team ([facility] Contact Info) Description 01/23/2024 Telephone [facility] [address] [place], [place] [phone] Jessi Dueñas MD [address] [place], [place] [phone] Call Back Request Social History Tobacco Use [...] no scripts sent. Please contact pt at [phone]. (Faroese Speaker) documented in this encounter Plan of Treatment Upcoming Encounters Date Type Department Care Team (Late st Contact Info) Description 07/26/2024 9:45 AM EDT Office Visit [facility] [address] [place] [address] Jessi Dueñas MD [address] [place] [address] documented as of this encounter Visit Diagnoses Not on filedocumented in this encounter Additional Health Concerns Assessment Noted Time PHQ-9 Depression Total Score: 8 09/19/19 24 11:07 AM EDT documented as of this encounter Care Teams Help Desk Operator Relationship Specialty Start Date End Date Jessi Dueñas MD [address] [place] [address] PCP - General Family Medicine 11/24/20 Mikayla Bhagat Manager WholesaleSkill Training Program Coordinator 05/09/23 documented as of this encounter
--- OUTSIDE RECORDS SUMMARY | 2024-07-02 15:11 | XMS_ITS | Encounter Summary ---
Author Organization [facility] Address [address] [facility] 7t [place] [address] Care Team Providers Care Load Blocker Name Role Phone Jessi Dueñas MD Primary Care Provider [phone] Encounter Details Date Type Department Care Team (Late st Contact Info) Description 10/12/2022 Orders Only [facility] [address] [place] [phone] Jessi Dueñas MD [address] [place] [address] [phone] Acute bilateral low back pain, unspecified whether [...] 9:45 AM EDT Office Visit [facility] [address] [place] [address] [phone] Jessi Dueñas MD [address] [place] [address] documented as of this encounter Visit Diagnoses Diagnosis Acute bilateral low back pain, unspecified whether sciatica present- Primary Hematoma of left knee region Sprain of left medial ankle joint, subsequent encounter documented in this encounter Additional Health Concerns Assessment Noted Time PHQ-9 Depression Total Score: 19 023 2:59 PM EST documented as of this encounter Care Teams Load Blocker Relationship Specialty Start Date End Date Jessi Dueñas MD [address] [place] [address] PCP - General Family Medicine 11/24/20 Mikayla Bhagat Galley StripperBatch Trucker 05/09/23 documented as of this encounter
--- OUTSIDE RECORDS SUMMARY | 2024-07-02 15:11 | XMS_ITS | Encounter Summary ---
Author Organization [employer] Address [address] [facility] 7t [place] [address] Care Team Providers Care Clinical Reimbursement Specialist Name Role Phone Jessi Dueñas MD Primary Care Provider [phone] Reason for Visit * Reason Comments Med Refill Encounter Details Date Type Department Care Team ([facility] st Contact Info) Description 11/23/2023 Refill [facility] [address] [place], [place] [phone] Jessi Dueñas MD [address] [place] [address] Social History Tobacco Use Types Packs/Day Years [...] [facility] [address] [place] [address] Jessi Dueñas MD [address] [place] [address] documented as of this encounter Visit Diagnoses Not on filedocumented in this encounter Additional Health Concerns Assessment Noted Time PHQ-9 Depression Total Score: 8 09/19/19 24 11:07 AM EDT documented as of this encounter Care Teams Clinical Reimbursement Specialist Relationship Specialty Start Date End Date Jessi Dueñas MD [address] [place] [address] PCP - General Family Medicine 11/24/20 Mikayla Bhagat Health PsychologistHeating Engineer 05/09/23 documented as of this encounter
--- OUTSIDE RECORDS SUMMARY | 2024-07-02 15:11 | XMS_ITS | Encounter Summary ---
Author Organization [employer] Address 75 [facility] 7t [place] [address] Care Team Providers Care Agricultural Aircraft Pilot Name Role Phone Jessi Dueñas MD Primary Care Provider [phone] Encounter Details Date Type Department Care Team ([facility] st Contact Info) Description 06/14/2024 Orders Only [facility] [address] [place], [place] [phone] Jessi Dueñas MD [address] [place], [place] [phone] Restless leg syndrome Social History Tobacco Use [...] [facility] [address] [place] [address] Jessi Dueñas MD [address] [place] [address] documented as of this encounter Visit Diagnoses Diagnosis Restless leg syndrome Restless legs syndrome (RLS) documented in this encounter Additional Health Concerns Assessment Noted Time PHQ-9 Depression Total Score: 8 09/19/19 24 11:07 AM EDT documented as of this encounter Care Teams Agricultural Aircraft Pilot Relationship Specialty Start Date End Date Jessi Dueñas MD [address] [place] [address] PCP - General Family Medicine 11/24/20 Mikayla Bhagat Child Nutrition AssistantIntellectual Property Legal Assistant 05/09/23 documented as of this encounter
--- OUTSIDE RECORDS SUMMARY | 2024-07-02 15:11 | XMS_ITS | Encounter Summary ---
Author Organization [employer] Address [address] [facility] [address] 7t [place] [address] Care Team Providers Care Circuit Court Magistrate Name Role Phone Jessi Dueñas MD Primary Care Provider [phone] Encounter Details Date Type Department Care Team ([facility] st Contact Info) Description 09/22/2023 Orders Only [facility] [address] [place], [place] [phone] Jessi Dueñas MD [address] [place], [place] [phone] Social History Tobacco Use Types Packs/Day Years [...] AM EDT Office Visit [facility] [address] [place] [address] Jessi Dueñas MD [address] [place] [address] documented as of this encounter Visit Diagnoses Not on filedocumented in this encounter Additional Health Concerns Assessment Noted Time PHQ-9 Depression Total Score: 8 09/19/19 24 11:07 AM EDT documented as of this encounter Care Teams Circuit Court Magistrate Relationship Specialty Start Date End Date Jessi Dueñas MD [address] [place] [address] PCP - General Family Medicine 11/24/20 Mikayla Bhagat Pooling OperatorUndercoat Sprayer 05/09/23 documented as of this encounter
--- OUTSIDE RECORDS SUMMARY | 2024-07-02 15:11 | XMS_ITS | Encounter Summary ---
Author Organization [facility] Address [address] [facility] 7 [place] [address] Care Team Providers Care Slot Tag Inserter Name Role Phone Jessi Dueñas MD Primary Care Provider [phone] Reason for Visit * Reason Onset Date Comments Other 01/05/2023 Encounter Details Date Type Department Care Team ([facility] st Contact Info) Description 01/05/2023 Telephone [facility] [address] [place] [address] Jessi Dueñas MD 230 [place] [address] Other Social History Tobacco Use Types Packs/Day [...] 12:53 PM EDT TC placed to pt [phone] to inform pt PCP sent Cymbalta to the pharmacy yesterday at [facility] for her pain. Pt reports she called [facility] pharmacy today and they told her that they did not receive the script. RN placed pt on hold and called [facility] pharmacy who confirmed they did receive [...] rheumatology referral d/t [facility] not speaking [place] citizen. Pt was informed PCP has placed new rheumatology referral for [facility] yesterday. Pt verbalized understanding. Pt to f/u PRN. * Telephone Encounter - Divya Frank - 01/05/2023 11:51 AM EDT Tc from pt states PCP advised her she will send a script for pain on 01/04 appointment but pt never received medication. Please contact pt at [phone] (Central African) documented in this encounter Plan of Treatment Upcoming Encounters Date Type Department Care Team (Late st Contact Info) Description 07/26/2024 9:45 AM EDT Office Visit [facility] [address] [place] [phone] Jessi Dueñas MD [address] [place] [address] documented as of this encounter Visit Diagnoses Not on filedocumented in this encounter Additional Health Concerns Assessment Noted Time PHQ-9 Depression Total Score: 20 023 9:49 AM EDT documented as of this encounter Care Teams Slot Tag Inserter Relationship Specialty Start Date End Date Jessi Dueñas MD [address] [place] [address] PCP - General Family Medicine 11/24/20 Mikayla Bhagat Clinical Research AdministratorSenior Front End Engineer 05/09/23 documented as of this encounter
--- OUTSIDE RECORDS SUMMARY | 2024-07-02 15:11 | XMS_ITS | Encounter Summary ---
Author Organization [employer] Address [address] [facility] 7t [place] [address] Care Team Providers Care Poultry Pathologist Name Role Phone Jessi Dueñas MD Primary Care Provider [phone] Encounter Details Date Type Department Care Team ([facility] st Contact Info) Description 01/11/2023 Orders Only [facility] [address] [place], [place] [phone] Jessi Dueñas MD [address] [place], [place] [phone] Chronic pain of both knees (Primary Dx) [...] Description 07/26/2024 9:45 AM EDT Office Visit [facility] [address] [place] [address] Jessi Dueñas MD [address] [place] [address] documented as of this encounter Visit Diagnoses Diagnosis Chronic pain of both knees- Primary documented in this encounter Additional Health Concerns Assessment Noted Time PHQ-9 Depression Total Score: 20 023 9:49 AM EDT documented as of this encounter Care Teams Poultry Pathologist Relationship Specialty Start Date End Date Jessi Dueñas MD [address] [place] [address] PCP - General Family Medicine 11/24/20 Mikayla Bhagat Radio Repair TeacherElectric Meter Tester 05/09/23 documented as of this encounter
== END 2024-07-02 12:59 | disposition home or self-care (01) ==
LOC: HO.HMGCX 12:58
PROVIDERS: PCP General Practice; Visit Provider Advanced Practice Midwife
DX: N83.201 Unspecified ovarian cyst, right side (principal); R10.84 Generalized abdominal pain; Z97.5 Presence of (intrauterine) contraceptive device
CPT/HCPCS: 76830; 76856

== ENCOUNTER → 2024-07-02 13:10 | Outpatient (BNV) | payer MEDICAID, SELFPAY | PROVIDERS: PCP General Practice; Visit Provider Radiology Diagnostic Radiology | DX: Z97.5 Presence of (intrauterine) contraceptive device (principal) | CPT/HCPCS: 76830; 76856 ==

== ENCOUNTER 2024-07-04 08:18 | Outpatient (AMB) | payer MEDICAID, SELFPAY ==
--- NOTE | 2024-07-04 08:19 | A.OFFVIS_ITS ---
Vital Signs 07/04/24 08:20 Height 5 ft 7 in Weight 116 lb BMI 18.2 BP 102/64 Intake Visit Reasons: IUD removal Permanent Mold Supervisor Required: Yes Permanent Mold Supervisor Language: Interactive Media Marketing Strategist Services: Permanent Mold Supervisor Present (in person) Permanent Mold Supervisor Name: Umu DA SILVA Information Interpreted: non-clinical & clinical Training And Development Officer: Training And Development Officer Present (Umu DA SILVA) Accompanied by: Sponsored Dependent Allergies cephalexin [From Keflex] Allergy (Intermediate, Verified 07/04/24 08:44) Eye Swelling morphine Allergy (Intermediate, Verified 07/04/24 08:44) Itching shellfish derived [SHELLFISH DERIVED] Allergy (Intermediate, Verified 07/04/24 08:44) swelling Is last menstrual period known: No (mirena) HPI Comments Details: The patient is presenting for follow-up. The patient was seen by Lindsey Zuñiga CNM regarding pelvic pain that resolved recently in addition to vaginal spotting, the patient gives history of Mirena IUD insertion for AUB in 11/18. The following workup was done: GC/CT negative BV panel positive for Gardnerella, was treated with Metrogel Pelvic ultrasound was done and showed the following: IMPRESSION: 1. IUD in expected position in the endometrial cavity. 2. 3.1 x 2.6 x 2.6 cm right ovarian cyst containing a smaller daughter cyst. Follow-up is suggested. Last co testing was in 01/09 was negative Last mammogram was in 09/24 was BI-RADS 1 [facility] Medical History Diarrhea C. difficile colitis Asthma GERD (gastroesophageal reflux disease) Bipolar disorder Anxiety and depression Constipation Diarrhea Surgical History History of esophagogastroduodenoscopy (EGD) H/O colonoscopy History of tubal ligation History of section Family History Family/Other Cancer Other Family history of arthritis Social History Alcohol intake: never Patient Tobacco Use Status: Former Tobacco user Tobacco use type: Cigarette Substance Use Type: Marijuana Female Reproductive History Menstrual Age of Menarche: 17 Review of Systems Const All systems reviewed & are unremarkable except as noted in HPI and below Physical Exam Vital Signs: Last Vital Signs BP 102/64 07/04/24 08:20 BMI result Body Mass Index 18.2 General: Yes no CVA tenderness External Female Exam: normal external appearance and normal appearance of the urethra Speculum Exam - Vagina: normal appearance of the vagina, normal palpation, no lesions and no masses Speculum Exam - Cervix: normal appearance of the cervix, normal palpation, no lesions, no masses, nontender and Other cervical findings present (IUD string seen) Bimanual exam- vagina & uterus: normal bimanual exam, normal palpation, uterine size normal, normal palpation, uterine shape normal, No Cervical tenderness present and non-tender Bimanual Exam- Adnexa, other: normal adnexae Back/Spine/Pelvis Back: no CVA tenderness Office Procedures IUD Insert/Removal Details Details: The patient is presenting for IUD removal and IUD reinsertion. Her last menstrual period was within the last 5 days, Urine test was done in the office and was negative; All the contraindications were excluded. The following possible complications were discussed with the patient: Intrauterine , Ectopic , Sepsis, Pelvic Infection, Irregular Bleeding and Amenorrhea, Perforation, Expulsion, Ovarian Cysts, Breast Cancer. The following adverse effects were discussed with the patient: alteration of menstrual bleeding pattern, including: unscheduled uterine bleeding decreased uterine bleeding increased scheduled uterine bleeding female genital tract bleeding ,amenorrhea , genital discharge , vulvovaginitis , breast pain , benign ovarian cyst and associated complications , dysmenorrhea , Gastrointestinal disorders abdominal/pelvic pain, headache/migraine , back pain , acne , depression Alternative options were discussed with the patient including but not limited: control pills, patch, NuvaRing, Depo-medroxyprogesterone acetate, Nexplanon, copper IUD, sterilization, vasectomy, others The procedure was explained in detail to patient , at the end patient signed the informed consent obtained. Alternative options were discussed with the patient The patient signed the consent and agreed with the plan; all questions answered. Urine test was done in the office and was negative Preop dx: Requesting IUD removal and Reinsertion Op: IUD removal and Mirena insertion Post op dx: same EBL= 10 cc Procedure: The patient was put in the dorsal lithotomy position a speculum was inserted in the vagina the IUD thread identified. Using a Angeli clamp the thread was grasped and the IUD pulled out with no complications. A no touch technique was used throughout the procedure. A speculum was placed into vagina and cervix was cleaned with betadine). A tenaculum was placed. A plastic sound was advanced through the external and internal os until it reached the fundus of the uterus, the depth was 8 cm. The sound was then withdrawn. The IUD was loaded in a sterile manner and advanced into position. The string was visualized and cut to 3 cm. Tenaculum site hemostatic. All instruments removed from vagina. Patient tolerated the procedure well. NO complications were noted. Patient was instructed to call for fever over 100.4, significant pain unrelieved by Motrin, IUD expulsion, heavy bleeding, or abnormal discharge. In addition, the following clinical considerations were discussed with the patient to call for removal: A stroke or heart attack ,Very severe or migraine headaches ,Unexplained fever ,Yellowing of the skin or whites of the eyes, as these may be signs of serious liver problems , or suspected , Pelvic pain or pain during sex ,HIV positive seroconversion in herself or her partner , Possible exposure to sexually transmitted infections Unusual vaginal discharge or genital sores , severe vaginal bleeding or bleeding that lasts a long time, or if she misses a menstrual period, Inability to feel Mirena's threads Counseled the patient that the IUD does not protect against STI's, recommended use of condoms for the first 7 days post insertion and explained to the patient that condoms are recommended for patients at risk for sexually transmitted infections. Follow up appointment made for 4 weeks following insertion. Date of removal in no more than five years for DUB treatment and 8 years for contraception from today?s date was d/w patient. This note was generated with a voice recognition program. Some errors may have been overlooked during the review of this note. Sometimes these errors may affect the content or meaning of a given sentence. 61607-MLL Insertion 84324-JTY Removal Procedure code (CPT) selection complete Office Meds Mirena 21 mcg/24 hr (up to 8 years) 52 mg intrauterine device Performing Provider: Harjit Parada MD Performing Location: [facility] Administered by: Harjit Parada MD on 07/04/24 09:02 Dose Route Admin Location Dispensed Lot Number Expiration Date [facility] Roll Cutting Operator 1 device intrauterine 1 device [id number] 08/31/26 [id number] [employer] Assessment & Plan Assessment & Plan (1) Abnormal uterine bleeding (AUB): Code(s): N93.9 - Abnormal uterine and vaginal bleeding, unspecified Category: Medical Plan: Co testing will be done next visit, screening mammogram ordered to be done in 09/25 GC and chlamydia taken recently and were negative, CBC, TSH, HCG,ordered. Discussed with the patient the different causes of abnormal bleeding including thyroid disorders, uterine and ovarian pathology, endometrial hyperplasia, carcinoma and other potential causes. Discussed with the patient the work up including CBC (to r/o anemia), TSH, pelvic Ultrasound, endometrial biopsy to r/o endometrial pathology. EMB done, see procedure note (2) Encounter for IUD removal and reinsertion: Code(s): Z30.433 - Encounter for removal and reinsertion of intrauterine contraceptive device Category: Medical Plan: Mirena IUD removed, and you Mirena IUD inserted see procedure note (3) Pelvic pain: Code(s): R10.2 - Pelvic and perineal pain Category: Medical Plan: Urine test done in the office was negative. Urine dip showed microscopic hematuria (4) Microscopic hematuria: Code(s): R31.29 - Other microscopic hematuria Category: Medical Plan: Urine dip showed microscopic hematuria, urine culture sent. Will repeat urine dip in 2 weeks. Discussed with the patient the possible causes of microscopic hematuria including but not limited to: interstitial cystitis, polyps, stones, masses, urethral inflammatory processes and others. If Urine Culture is negative and repeat urine dip in 2 weeks shows persistent microscopic hematuria, will proceed with CT abdomen/pelvis and urology referral. Instructions given the patient to schedule a 2 week urine dip follow-up appointment. All questions answered and the patient verbalized understanding. Orders: Orders AMB Endometrial Biopsy Today N93.9 - Abnormal uterine and vaginal bleeding, unspecified Complete Blood Count no Diff Today N93.9 - Abnormal uterine and vaginal bleeding, unspecified TSH reflex Free T4 Today N93.9 - Abnormal uterine and vaginal bleeding, unspecified AMB IUD Insertion/Removal - Practice Supplied Today N93.9 - Abnormal uterine and vaginal bleeding, unspecified AMB HCG Urine Test Today Z32.02 - Encounter for test, result negative US pelvic and transvaginal 3 Months N83.299 - Other ovarian cyst, unspecified side Urine Culture Today N93.9 - Abnormal uterine and vaginal bleeding, unspecified, R31.29 - Other microscopic hematuria HCG Quantitative Today N93.9 - Abnormal uterine and vaginal bleeding, unspecified US pelvic and transvaginal Today N93.9 - Abnormal uterine and vaginal bleeding, unspecified MM screening mammo BI Today Z12.31 - Encounter for screening mammogram for malignant neoplasm of breast Surgical Today N93.9 - Abnormal uterine and vaginal bleeding, unspecified, R31.29 - Other microscopic hematuria Coding Level of Care Code Est Pt Level 4 (57506) Procedure Only Diagnoses Abnormal uterine bleeding (AUB) N93.9 Encounter for IUD removal and reinsertion Z30.433 Pelvic pain R10.2 Microscopic hematuria R31.29 CPT Codes Details - CPT: 82645-FUX Insertion ([id number]) Details - CPT: 62583-WKE Removal ([id number])
[2024-07-04 08:20] VITALS: BP 102/64; BMI 18.2
--- OUTSIDE RECORDS SUMMARY | 2024-07-04 08:24 | XMS_ITS | Encounter Summary ---
Author Organization [employer] Address [address] [facility] 7t [place] [address] Care Team Providers Care Naval Aircre[employer] Name Role Phone Jessi Dueñas MD Primary Care Provider [phone] Reason for Referral * Consultation (Routine) - Closed Specialty Diagnoses / Procedures Referred By Contac t Referred To Contact Physical Therapy Diagnoses Acute bilateral low back pain without sciatica Chronic pain of both knees Bilateral hand pain Jessi Dueñas MD [address] [place] [address] Phone: tel: fax: [facility] [address] [facility] [address] [place], [place] Phone: tel: fax: Referral ID Status Reason Start Date Expiration Date V isits Requested Visits Authorized [id number] Closed Specialty Services Required 04/17/2024 04/17/2025 20 20 Encounter Details Date Type Department Care Team (Late st Contact Info) Description 04/17/2024 Orders Only [facility] [address] [place] [address] [phone] Jessi Dueñsa MD [address] [place], [place] [phone] Acute bilateral low back pain without sciatica [...] AM EDT Office Visit [facility] [address] [place] [address] Jesis Dueñas MD [address] [place] [address] Scheduled Referrals Name Type Priority Associated Diagnoses [...] documented as of this encounter Care Teams [employer] Relationship Specialty Start Date End Date Jessi Dueñas MD [address] [place] [address] PCP - General Family Medicine 11/24/20 Mikayla Bhagat Hematology Oncology ConsultantCephalometric Technician 05/09/23 documented as of this encounter
--- OUTSIDE RECORDS SUMMARY | 2024-07-04 08:24 | XMS_ITS | Encounter Summary ---
Author Organization [employer] Address [address] [facility] [address] 7[address] [place] [address] Care Team Providers Care Director Social Service Name Role Phone Jessi Dueñas MD Primary Care Provider [phone] Encounter Details Date Type Department Care Team (Late st Contact Info) Description 07/02/2024 Orders Only [facility] External Provider, [facility] Social History Tobacco Use Types Packs/Day Years [...] t he electric, gas, oil or water [place] [employer] threatened to shut off services in your [...] 07/26/2024 9:45 AM EDT Office Visit [facility] [address] [place] [address] Jessi Dueñas MD [address] [place] [address] documented as of this encounter Procedures Procedure Name Priority Date/Time Associated Diagnosis Comments US PELVIS TRANSVAGINAL Routine 07/02/2024 1:10 PM EDT documented in this encounter Results * US Pelvis Transvaginal (07/02/2024 1:10 PM EDT) Anatomical Region Laterality Modality Pelvis Ultrasound 07/02/2024 1:10 PM EDT Narrative 07/03/2024 7:10 AM EDT ? [facility] ?[address] [facility] ? [place] [address] ? Ultrasound Report ? Signed ? Patient: Lc Nicole,Kera ?MR#: MM ?? [id number] ? : 1980 ?Acct:[id number] ? Age/Sex: 43 / F ?ADM Date: 04/01/25 ? Loc: HO.[facility]GCX ? Attending Dr: Lindsey Zuñiga CNM ? Ordering Physician: Lindsey Zuñiga CNM ?? Date of Service: 07/02/24 ?? Procedure(s): US pelvic and transvaginal ?? Accession Number(s): [id number] ? cc: Jessi Dueñsa; Lindsey Zuñiga CNM ? EXAMINATION: ??US PELVIS TRANSABDOMINAL AND TRANSVAGINAL ? HISTORY: Z97.5 - Presence of (intrauterine) contraceptive device ? COMPARISON: Correlation is made with an unenhanced CT of the pelvis ?? dated 03/15/2022. ? TECHNIQUE: ? Transabdominal and endovaginal real-time 2D moya-scale ultrasound was ?? performed. ? FINDINGS: ? Uterus: ??The uterus is normal in size, measuring 7.0 x 4.1 x 4.7 cm. ? Myometrium has a normal echotexture. ??No fibroids are identified. ? Endometrium: ??The endometrial stripe is not well visualized due to the ?? presence of an IUD. The IUD is in the expected position in the ?? endometrial cavity. There is a small amount of fluid in the cervix. ? Right ovary: ??The right ovary measures 4.5 x 3.0 x 3.3 cm. ??There is a ?? 3.1 x 2.6 x 2.6 cm right ovarian cyst containing a smaller daughter ?? cyst. ? Left ovary: ?? The left ovary measures 2.2 x 1.3 x 2.3 cm. ??The left ?? ovary is normal in size and echotexture. ? Pelvic fluid: none. ? US/US pelvic and transvaginal ?? IMPRESSION: ? 1. IUD in expected position in the endometrial cavity. ? 2. 3.1 x 2.6 x 2.6 cm right ovarian cyst containing a smaller daughter ?? cyst. Follow-up is suggested. ? Electronically signed by: ??Everett Rich MD ??07/03/2024 07:08 AM EDT ?? RP ? Dictated By: ?Everett Rich MD ? Signed By: ?<Electronically signed by Everett Rich MD in OV> ?07/03/24 0708 ? DD/DT: //25 1310 ? TD/TT: 07/02/24 1335 ? Wool Shearer: ? Procedure Note Donotuseinterpreter, Image - 07/03/2024 [facility] [address] [place] [address] [place] [address] Ultrasound Report Signed Patient: Teresa Armstrong#: [id number] : 1980Acct:[id number] Age/Sex: 43 / FADM Date: 07/02/24 Loc: HO.HMGCX Attending Dr: Lindsey Zuñiga CNM Ordering Physician: Lindsey Zuñiga CNM Date of Service: 07/02/24 Procedure(s): US pelvic and transvaginal Accession Number(s): [id number] cc: Jessi Dueñas; Lindsey Zuñiga CNM EXAMINATION: US PELVIS TRANSABDOMINAL AND TRANSVAGINAL HISTORY: Z97.5 - Presence of (intrauterine) contraceptive device COMPARISON: Correlation is made with an unenhanced CT of the pelvis dated 03/15/2022. TECHNIQUE: Transabdominal and endovaginal real-time 2D moya-scale ultrasound was performed. FINDINGS: Uterus: The uterus is normal in size, measuring 7.0 x 4.1 x 4.7 cm. Myometrium has a normal echotexture. No fibroids are identified. Endometrium: The endometrial stripe is not well visualized due to the presence of an IUD. The IUD is in the expected position in the endometrial cavity. There is a small amount of fluid in the cervix. Right ovary: The right ovary measures 4.5 x 3.0 x 3.3 cm. There is a 3.1 x 2.6 x 2.6 cm right ovarian cyst containing a smaller daughter cyst. Left ovary: The left ovary measures 2.2 x 1.3 x 2.3 cm. The left ovary is normal in size and echotexture. Pelvic fluid: none. US/US pelvic and transvaginal IMPRESSION: 1. IUD in expected position in the endometrial cavity. 2. 3.1 x 2.6 x 2.6 cm right ovarian cyst containing a smaller daughter cyst. Follow-up is suggested. Electronically signed by: Everett Rich MD 07/03/2024 07:08 AM EDT Dictated By: Everett Rich MD Signed By: <Electronically signed by Everett Rich MD in OV> 07/03/24 0708 DD/ 1310 TD/TT: 07/02/24 1335 Wool Shearer: [facility] External Provider IMG US PROCEDURES Edited Result - Final documented in this encounter Visit Diagnoses Not on filedocumented in this encounter Additional Health Concerns Assessment Noted Time PHQ-9 Depression Total Score: 8 09/19/19 24 11:07 AM EDT documented as of this encounter Care Teams Director Social Service Relationship Specialty Start Date End Date Jessi Dueñas MD [address] [place] [phone] PCP - General Family Medicine 11/24/20 Mikayla Bhagat Waste Disposal Leakage TesterBlankbook Stitching Machine Operator 05/09/23 documented as of this encounter
--- OUTSIDE RECORDS SUMMARY | 2024-07-04 08:25 | XMS_ITS | Encounter Summary ---
Author Organization [facility] Address [address] [facility] 7 [place] [address] Care Team Providers Care Third Hand Name Role Phone Jessi Dueñas MD Primary Care Provider [phone] Reason for Visit * Reason Onset Date Comments Referral 12/23/2022 Encounter Details Date Type Department Care Team ([facility] st Contact Info) Description 12/23/2022 Telephone [facility] [address] [place] [phone] Jessi Dueñas MD [address] [place] [address] Referral Social History Tobacco Use Types Packs/Day [...] have interpreters. Any questions, contact pt at [phone] (Hebrew) documented in this encounter Plan of Treatment Upcoming Encounters Date Type Department Care Team (Late st Contact Info) Description 07/26/2024 9:45 AM EDT Office Visit [facility] [address] [place] [address] Jessi Dueñas MD [address] [place], [place] [phone] documented as of this encounter Visit Diagnoses Not on filedocumented in this encounter Additional Health Concerns Assessment Noted Time PHQ-9 Depression Total Score: 19 023 2:59 PM EST documented as of this encounter Care Teams Third Hand Relationship Specialty Start Date End Date Jessi Dueñas MD [address] [place], [place] [phone] PCP - General Family Medicine 11/24/20 Mikayla Bhagat Motor Pool ClerkCarbon Lamp Cleaner 05/09/23 documented as of this encounter
--- OUTSIDE RECORDS SUMMARY | 2024-07-04 08:25 | XMS_ITS | Encounter Summary ---
Author Organization [facility] Address [address] [facility] 7t [place] [address] Care Team Providers Care Meal Temperer Name Role Phone Jessi Dueñas MD Primary Care Provider Encounter Details Date Type Department Care Team (Late Contact Info) Description 03/29/2022 Orders Only [facility] [address] [place] [phone] Jessi Dueñas MD [address] [place] [address] [phone] Choking episode occurring at night (Primary Dx) [...] AM EDT Office Visit [facility] [address] [place] [address] [phone] Jessi Dueñas MD [address] [place] [address] documented as of this encounter Visit Diagnoses Diagnosis Choking episode occurring at night- Primary documented in this encounter Care Teams Meal Temperer Relationship Specialty Start Date End Date Jessi Dueñas MD [address] [place], [place] [phone] PCP - General Family Medicine 11/24/20 Mikayla Bhagat Aluminum Boat InspectorBeef Skinner 05/09/23 documented as of this encounter
--- OUTSIDE RECORDS SUMMARY | 2024-07-04 08:25 | XMS_ITS | Encounter Summary ---
Author Organization [employer] Address [address] [facility] 7 [place] [address] Care Team Providers Care Hebrew Cantor Name Role Phone Jessi Dueñas MD Primary Care Provider [phone] Reason for Visit * Reason Onset Date Comments DME from [facility] 06/27/2024 Encounter Details Date Type Department Care Team ([facility] st Contact Info) Description 06/27/2024 Telephone [facility] [address] [place] [address] Jessi Dueñas MD [address] [place], [place] [phone] DME from [facility] Social History Tobacco Use Types Packs/Day Years [...] Telephone Encounter - Julian Slater [place] - 07/03/2024 9:50 AM EDT DME has been signed by the PCP and faxed to [facility]. Form has been sent in for scanning. * Telephone Encounter - Chasity Mckeon [place] - 06/27/2024 3:37 PM EDT Certificate or medical necessity and DME for Disposable underpads/bedpads and Gloves from [facility] placed on PCP desk for signature. documented in this encounter Plan of Treatment Upcoming Encounters Date Type Department Care Team (Late st Contact Info) Description 07/26/2024 9:45 AM EDT Office Visit [facility] [address] [place] [address] Jessi Dueañs MD [address] [place] [address] documented as of this encounter Visit Diagnoses Not on filedocumented in this encounter Additional Health Concerns Assessment Noted Time PHQ-9 Depression Total Score: 8 09/19/19 24 11:07 AM EDT documented as of this encounter Care Teams Hebrew Cantor Relationship Specialty Start Date End Date Jessi Dueñas MD [address] [place] [address] PCP - General Family Medicine 11/24/20 Mikayla Bhagat Tester EquipmentCar Worker Helper 05/09/23 documented as of this encounter
--- OUTSIDE RECORDS SUMMARY | 2024-07-04 08:25 | XMS_ITS | Encounter Summary ---
Author Organization [facility] Address [address] [facility] 7t [place] [address] Care Team Providers Care Printer Floor Covering Assistant Name Role Phone Jessi Dueñas MD Primary Care Provider [phone] Encounter Details Date Type Department Care Team (Late st Contact Info) Description 10/12/2022 Orders Only [facility] [address] [place] [phone] Jessi Dueñas MD [address] [place] [address] [phone] Acute bilateral low back pain, unspecified whether [...] 9:45 AM EDT Office Visit [facility] [address] [place] [address] [phone] Jessi Dueñas MD [address] [place] [address] documented as of this encounter Visit Diagnoses Diagnosis Acute bilateral low back pain, unspecified whether sciatica present- Primary Hematoma of left knee region Sprain of left medial ankle joint, subsequent encounter documented in this encounter Additional Health Concerns Assessment Noted Time PHQ-9 Depression Total Score: 19 023 2:59 PM EST documented as of this encounter Care Teams Printer Floor Covering Assistant Relationship Specialty Start Date End Date Jessi Dueñas MD [address] [place] [address] PCP - General Family Medicine 11/24/20 Mikayla Bhagat Research MethodologistManager Reliability 05/09/23 documented as of this encounter
--- OUTSIDE RECORDS SUMMARY | 2024-07-04 08:25 | XMS_ITS | Encounter Summary ---
Author Organization [employer] Address [address] [facility] 7 [place] [address] Care Team Providers Care Marketing Ambassador Name Role Phone Jessi Dueñas MD Primary Care Provider [phone] Reason for Visit * Reason Onset Date Comments Med Refill 07/02/2024 Encounter Details Date Type Department Care Team ([facility] st Contact Info) Description 07/02/2024 Refill [facility] [address] [place] [address] Jessi Dueñas MD [address] [place], [place] [phone] Fibromyalgia Social History Tobacco Use Types Packs/Day [...] 50 MG tablet To be sent to: [facility] - [place], [place] - [address] [facility] documented in this encounter Plan of Treatment Upcoming Encounters Date Type Department Care Team (Late st Contact Info) Description 07/26/2024 9:45 AM EDT Office Visit [facility] [address] [place] [address] Jessi Dueñas MD [address] [place] [address] documented as of this encounter Visit Diagnoses Diagnosis Fibromyalgia Unspecified myalgia and myositis documented in this encounter Additional Health Concerns Assessment Noted Time PHQ-9 Depression Total Score: 8 09/19/19 24 11:07 AM EDT documented as of this encounter Care Teams Marketing Ambassador Relationship Specialty Start Date End Date Jessi Dueñas MD [address] [place] [address] PCP - General Family Medicine 11/24/20 Mikayla Bhagat Sail Finisher MachineDoor And Arrival Attendant 05/09/23 documented as of this encounter
--- OUTSIDE RECORDS SUMMARY | 2024-07-04 08:25 | XMS_ITS | Encounter Summary ---
Author Organization [employer] [facility] Address [address] [facility] 7 [place] [address] Care Team Providers Care Abstract Manager Name Role Phone Jessi Dueñas MD Primary Care Provider [phone] Reason for Visit * Reason Onset Date Comments Other 01/05/2023 Encounter Details Date Type Department Care Team ([facility] st Contact Info) Description 01/05/2023 Telephone [facility] [address] [place] [address] Jessi Dueñas MD 230 [place] [address] Other Social History Tobacco Use Types Packs/Day [...] 12:53 PM EDT TC placed to pt [phone] to inform pt PCP sent Cymbalta to the pharmacy yesterday at [facility] for her pain. Pt reports she called [facility] pharmacy today and they told her that they did not receive the script. RN placed pt on hold and called [facility] pharmacy who confirmed they did receive [...] rheumatology referral d/t [facility] not speaking bulgarian. Pt was informed PCP has placed new rheumatology referral for [facility] yesterday. Pt verbalized understanding. Pt to f/u PRN. * Telephone Encounter - Divya Frank - 01/05/2023 11:51 AM EDT Tc from pt states PCP advised her she will send a script for pain on 01/04 appointment but pt never received medication. Please contact pt at [phone] (Tongan) documented in this encounter Plan of Treatment Upcoming Encounters Date Type Department Care Team (Late st Contact Info) Description 07/26/2024 9:45 AM EDT Office Visit [facility] [address] [place] [address] Jessi Dueñas MD [address] [place] [address] documented as of this encounter Visit Diagnoses Not on filedocumented in this encounter Additional Health Concerns Assessment Noted Time PHQ-9 Depression Total Score: 20 023 9:49 AM EDT documented as of this encounter Care Teams Abstract Manager Relationship Specialty Start Date End Date Jessi Dueñas MD [address] [place] [address] PCP - General Family Medicine 11/24/20 Mikayla Bhagat Stone BankerFlotation Tender Helper 05/09/23 documented as of this encounter
--- OUTSIDE RECORDS SUMMARY | 2024-07-04 08:25 | XMS_ITS | Encounter Summary ---
Author Organization [employer] Address [address] [facility] 7 [place] [address] Care Team Providers Care Pipelines Manager Name Role Phone Jessi Dueñas MD Primary Care Provider [phone] Reason for Visit * Reason Comments Med Refill Encounter Details Date Type Department Care Team ([facility] st Contact Info) Description 10/25/2023 Refill [facility] [address] [place] [address] Anita Arriaga MD [address] [place] [address] Social History Tobacco Use Types Packs/Day Years [...] EDT Office Visit [facility] [address] [place] [address] Jessi Dueñas MD 230 [place] [address] documented as of this encounter Visit Diagnoses Not on filedocumented in this encounter Additional Health Concerns Assessment Noted Time PHQ-9 Depression Total Score: 8 09/19/19 24 11:07 AM EDT documented as of this encounter Care Teams Pipelines Manager Relationship Specialty Start Date End Date Jessi Dueñas MD 230 [place] [address] PCP - General Family Medicine 11/24/20 Mikayla Bhagat Cleaner And DyerValet Attendant 05/09/23 documented as of this encounter
--- OUTSIDE RECORDS SUMMARY | 2024-07-04 08:25 | XMS_ITS | Encounter Summary ---
Author Organization [employer] [facility] Address [address] [facility] 7 [place] [address] Care Team Providers Care Manager Psychology Name Role Phone Jessi Dueñas MD Primary Care Provider [phone] Reason for Visit * Reason Onset Date Comments Med Refill Tramadol refill denied 10/25/2023 Encounter Details Date Type Department Care Team (Late st Contact Info) Description 10/25/2023 Refill [facility] [address] [place] [address] Jessi Dueñas MD 230 [place] [address] Fibromyalgia Social History Tobacco Use Types Packs/Day [...] can review this. Thank you! TC via P/I#[id number], unable to connect to the number, unable to leave message. Will forward message to PCP's M.A. to schedule a telephone appointment for patient as PCP requested. documented in this encounter Plan of Treatment Upcoming Encounters Date Type Department Care Team (Late st Contact Info) Description 07/26/2024 9:45 AM EDT Office Visit [facility] [address] [place], [place] [phone] Jessi Dueñas MD [address] [place] [address] documented as of this encounter Visit Diagnoses Diagnosis Fibromyalgia Unspecified myalgia and myositis documented in this encounter Additional Health Concerns Assessment Noted Time PHQ-9 Depression Total Score: 8 09/19/19 24 11:07 AM EDT documented as of this encounter Care Teams Manager Psychology Relationship Specialty Start Date End Date Jessi Dueñas MD 230 [place] [address] PCP - General Family Medicine 11/24/20 Mikayla Bhagat Sheet SewerField Research Associate 05/09/23 documented as of this encounter
--- OUTSIDE RECORDS SUMMARY | 2024-07-04 08:25 | XMS_ITS | Encounter Summary ---
Author Organization [employer] Address [address] [facility] 7t [place] [address] Care Team Providers Care Tooth Clerk Name Role Phone Jessi Dueñas MD Primary Care Provider [phone] Reason for Visit * Reason Onset Date Comments Nurse Triage 02/07/2023 Encounter Details Date Type Department Care Team ([facility] st Contact Info) Description 02/07/2023 Telephone [facility] [address] [place] [address] Jessi Dueñas MD [address] [place] [address] Nurse Triage Social History Tobacco Use Types [...] 02/07/2023 11:26 AM EST Triage call with Bday Finish Specialist ID [id number] Pt reports ED visit @ [facility] 02/06/23 for abdominal pain and migraines. Report is requested from [facility] clinical team primary care physician. Pt reports was supposed to [...] lower back pain states she went to [facility] last on 02/06 and did nothing. Patient speaks chinese documented in this encounter Plan of Treatment Upcoming Encounters Date Type Department Care Team (Late st Contact Info) Description 07/26/2024 9:45 AM EDT Office Visit [facility] [address] [place] [address] Jessi Dueñas MD [address] [place] [address] documented as of this encounter Visit Diagnoses Not on filedocumented in this encounter Additional Health Concerns Assessment Noted Time PHQ-9 Depression Total Score: 20 023 9:49 AM EDT documented as of this encounter Care Teams Tooth Clerk Relationship Specialty Start Date End Date Jessi Dueñas MD [address] [place] [address] PCP - General Family Medicine 11/24/20 Mikayla Bhagat Tanbark PeelerExtrusion Supervisor 05/09/23 documented as of this encounter
--- OUTSIDE RECORDS SUMMARY | 2024-07-04 08:25 | XMS_ITS | Encounter Summary ---
Author Organization [employer] [facility] Address [address] [facility] 7 [place] [address] Care Team Providers Care Correctional Facility Psychiatrist Name Role Phone Jessi Dueñas MD Primary Care Provider [phone] Reason for Visit * Reason Onset Date Comments Results 05/23/2023 Encounter Details Date Type Department Care Team ([facility] st Contact Info) Description 05/23/2023 Telephone [facility] MEDICINE [address] [place] [address] Jessi Dueñas MD [address] [place] [address] Results Social History Tobacco Use Types Packs/Day [...] T/C to pt. For below message through [employer] [place] - [id number], pt. Informed regarding normal x-ray result. pt. [...] case of any new or worsening symptoms. [facility] hours are reviewed. Pt. Verbally agreed and understood. * Telephone Encounter - Paco Sylvester - 05/24/2023 3:59 PM EST Tc from pt returning call. Please contact at [phone] * Telephone Encounter - Yumiko Whitaker RN - 05/24/2023 12:47 PM EST Return T/C to pt. For bellow message Normal x-ray result. No answer. LVM to call back on [phone]. * Telephone Encounter - Bran Parker - 05/23/2023 4:41 PM EST TC from pt requesting call back regarding Results. Type of results: X-Ray Date when done: 05/16/23 Facility: [facility] documented in this encounter Plan of Treatment Upcoming Encounters Date Type Department Care Team (Late st Contact Info) Description 07/26/2024 9:45 AM EDT Office Visit [facility] MEDICINE [address] [place], [place] [phone] Jessi Dueñas MD [address] [place], [place] [phone] documented as of this encounter Visit Diagnoses Not on filedocumented in this encounter Additional Health Concerns Assessment Noted Time PHQ-9 Depression Total Score: 20 023 9:49 AM EDT documented as of this encounter Care Teams Correctional Facility Psychiatrist Relationship Specialty Start Date End Date Jessi Dueñas MD [address] [place] [address] PCP - General Family Medicine 11/24/20 Mikayla Bhagat Sales Representative Facility ServicesMarketing Operations Assistant 05/09/23 documented as of this encounter
--- OUTSIDE RECORDS SUMMARY | 2024-07-04 08:25 | XMS_ITS | Encounter Summary ---
Author Organization [employer] Address [address] [facility] 7t [place] [address] Care Team Providers Care Dice Manager Name Role Phone Jessi Dueñas MD Primary Care Provider [phone] Encounter Details Date Type Department Care Team ([facility] st Contact Info) Description 05/18/2023 Telephone [facility] [address] [place], [place] [phone] Jessi Dueñas MD [address] [place], [place] [phone] Social History Tobacco Use Types Packs/Day Years [...] Lopez RN - 05/18/2023 8:48 AM EST SALES PROFESSIONAL referral made to [facility], referral form faxed with confirmation of receipt. documented in this encounter Plan of Treatment Upcoming Encounters Date Type Department Care Team (Late st Contact Info) Description 07/26/2024 9:45 AM EDT Office Visit [facility] [address] [place] [address] Jessi Dueñas MD [address] [place] [address] documented as of this encounter Visit Diagnoses Not on filedocumented in this encounter Additional Health Concerns Assessment Noted Time PHQ-9 Depression Total Score: 20 023 9:49 AM EDT documented as of this encounter Care Teams Dice Manager Relationship Specialty Start Date End Date Jessi Dueñas MD [address] [place] [address] PCP - General Family Medicine 11/24/20 Mikayla Bhagat Director Of MusicHealth Information Systems Technician 05/09/23 documented as of this encounter
--- OUTSIDE RECORDS SUMMARY | 2024-07-04 08:25 | XMS_ITS | Encounter Summary ---
Author Organization [employer] Address [address] [facility] 7t [place] [address] Care Team Providers Care Intellectual Property Lawyer Name Role Phone Jessi Dueñas MD Primary Care Provider [phone] Encounter Details Date Type Department Care Team ([facility] st Contact Info) Description 02/08/[address] [facility] MEDICINE [address] [place], [place] [phone] Jessi Dueñas MD [address] [place], [place] [phone] Social History Tobacco Use Types Packs/Day Years [...] AM EDT Office Visit [facility] MEDICINE [address] [place] [address] Jessi Dueñas MD [address] [place] [address] documented as of this encounter Visit Diagnoses Not on filedocumented in this encounter Additional Health Concerns Assessment Noted Time PHQ-9 Depression Total Score: 20 023 9:49 AM EDT documented as of this encounter Care Teams Intellectual Property Lawyer Relationship Specialty Start Date End Date Jessi Dueñas MD 230 [place] [address] PCP - General Family Medicine 11/24/20 Mikayla Bhagat Egg CaserInformation Systems Consultant 05/09/23 documented as of this encounter
--- OUTSIDE RECORDS SUMMARY | 2024-07-04 08:25 | XMS_ITS | Encounter Summary ---
Author Organization [employer] [facility] Address [address] [facility] 7t [place] [address] Care Team Providers Care Performance Improvement Consultant Name Role Phone Jessi Dueñas MD Primary Care Provider [phone] Reason for Visit * Reason Onset Date Comments Call Back Request 01/23/2024 Encounter Details Date Type Department Care Team ([facility] Contact Info) Description 01/23/2024 Telephone [facility] 230 [place], [place] [phone] Jessi Dueñas MD [address] [place], [place] [phone] Call Back Request Social History Tobacco Use [...] no scripts sent. Please contact pt at [phone]. (Equatorial Guinean Speaker) documented in this encounter Plan of Treatment Upcoming Encounters Date Type Department Care Team (Late st Contact Info) Description 07/26/2024 9:45 AM EDT Office Visit [facility]INE [address] [place] [address] Jessi Dueñas MD [address] [place] [address] documented as of this encounter Visit Diagnoses Not on filedocumented in this encounter Additional Health Concerns Assessment Noted Time PHQ-9 Depression Total Score: 8 09/19/19 24 11:07 AM EDT documented as of this encounter Care Teams Performance Improvement Consultant Relationship Specialty Start Date End Date Jessi Dueñas MD [address] [place] [address] PCP - General Family Medicine 11/24/20 Mikayla Bhagat Funeral Pre Need ConsultantSolid Die Cutter 05/09/23 documented as of this encounter
--- OUTSIDE RECORDS SUMMARY | 2024-07-04 08:25 | XMS_ITS | Encounter Summary ---
Author Organization [employer] Address [address] [facility] 7t [place] [address] Care Team Providers Care Observatory Director Name Role Phone Jessi Dueñas MD Primary Care Provider [phone] Encounter Details Date Type Department Care Team ([facility] st Contact Info) Description 01/11/2023 Orders Only [facility] MED[facility]INE [address] [place], [place] [phone] Jessi Dueñas MD 230 [place], [place] [phone] Chronic pain of both knees (Primary Dx) [...] EDT Office Visit [facility] MED[facility] [address] [place] [address] Jessi Dueñas MD [address] [place] [address] documented as of this encounter Visit Diagnoses Diagnosis Chronic pain of both knees- Primary documented in this encounter Additional Health Concerns Assessment Noted Time PHQ-9 Depression Total Score: 20 023 9:49 AM EDT documented as of this encounter Care Teams Observatory Director Relationship Specialty Start Date End Date Jessi Dueñas MD [address] [place] [address] PCP - General Family Medicine 11/24/20 Mikayla Bhagat Prepared Foods Team LeaderRoom Service Food Server 05/09/23 documented as of this encounter
--- OUTSIDE RECORDS SUMMARY | 2024-07-04 08:25 | XMS_ITS | Encounter Summary ---
Author Organization [employer] Address [address] [facility] 7t [place] [address] Care Team Providers Care Multiple Launch Rocket System Crewmember Name Role Phone Jessi Dueñas MD Primary Care Provider [phone] Encounter Details Date Type Department Care Team ([facility] st Contact Info) Description 06/14/2024 Orders Only [facility] MED[facility]INE [address] [place], [place] [phone] Jessi Dueñas MD [address] [place], [place] [phone] Restless leg syndrome Social History Tobacco Use [...] 9:45 AM EDT Office Visit [facility]ICINE [address] [place] [address] Jessi Dueñas MD [address] [place] [address] documented as of this encounter Visit Diagnoses Diagnosis Restless leg syndrome Restless legs syndrome (RLS) documented in this encounter Additional Health Concerns Assessment Noted Time PHQ-9 Depression Total Score: 8 09/19/19 24 11:07 AM EDT documented as of this encounter Care Teams Multiple Launch Rocket System Crewmember Relationship Specialty Start Date End Date Jessi Dueñas MD [address] [place] [address] PCP - General Family Medicine 11/24/20 Mikayla Bhagat Executive Vice President And Chief Financial OfficerMusic Theory Teacher 05/09/23 documented as of this encounter
--- OUTSIDE RECORDS SUMMARY | 2024-07-04 08:25 | XMS_ITS | Clinical Summary ---
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 14 tablet 06/19/19 25 Active traMADol (Ultram) 50 MG tabletIndicatio ns:Fibromyalgia Take 1 tablet (50 mg) by mouth every 12 (twelve) hours if needed for severe pain for up to 28 days. 56 tablet 07/03/19 25 025 Active Mometasone Furoate (Asmanex HFA) [...] 28 days. 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 To go to medical records and [...] (05/19/2023 10:31 AM EST): Plan to see [facility] rheumatology in June 2023, JUANITO + , [...] 12:59 PM EST): Will send referral to [facility] rheumatology, JUANITO + , whole body pain, fatigue, all worse after two episodes of C diff Still likely fibromyalgia Recommend avoidance of marijuana and cocaine, drugs purchased on the street Assessment & Plan (01/04/2023 7:56 PM EDT): Will send referral to [facility] rheumatology, JUANITO + , whole body pain, [...] aware of side effects, somnolence, 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 Neck pain 10/27/2022 [...] & Plan (02/20/2023 12:56 PM EST): Call [facility] to get appointment at their Rheum clinic [...] Date Type Department Care Team Description 07/02/2024 Orders Only [facility] External Provider, [facility] 07/02/2024 Refill [facility] [address] [place] [phone] Jessi Dueñas MD Fibromyalgia 06/27/2024 Telephone [facility] [address] [place] [address] [phone] Jessi Dueñas MD DME from [place] 06/19/2024 Orders Only GENERIC EXTERNAL DATA DEPARTMENT Provider, [facility] External Data 06/18/2024 3:20 PM EDT Office Visit [facility] [address] [place] [phone] Name, MD Rolo Pierre (Primary Dx) 06/18/2024 Patient Outreach [facility] [address] [place] [phone] Jessi Dueñas MD Care Coordination ([address] [place] [facility] telephone call outreach) 06/17/2024 Telephone [facility] [address] [place] [address] [phone] Jessi Dueñas MD LETTER 06/14/2024 Orders Only [facility] [address] [place] [address] [phone] Jessi Dueñas MD Restless leg syndrome 06/14/2024 Population Health Risk Score Community [facility] (C3) Department [address] [place] [address] [phone] Provider, Population Health Generic 06/12/2024 Telephone [facility] [address] [place] [address] [phone] Jessi Dueñas MD Medication Question; Med Refill 06/08/2024 Refill [facility] [address] [place] [address] [phone] Jessi Dueñas MD 06/03/2024 Refill [facility] [address] [place] [address] [phone] Jessi Dueñas MD Fibromyalgia 05/30/2024 Patient Outreach [address] [phone] Jessi Dueñas MD Care Coordination (C3 -[facility] telephone call outreach) 05/30/2024 Orders Only [facility] External Provider, [facility] 05/29/2024 Patient Outreach [facility] [address] [place] [address] [phone] Jessi Dueñas MD Transition Of Care (Tcm) (ED visit requested) 05/29/2024 Telephone [facility] [address] [place] [phone] Jessi Dueñas MD Med Refill 05/29/[address] [phone] Jessi Dueñas MD Fibromyalgia 05/28/2024 Patient Outreach [address] [phone] Jessi Dueñas MD Transition Of Care (Tcm) (ERRORr) 05/27/2024 Patient Outreach [address] [phone] Jessi Dueñas MD Care Coordination (C3 [facility] Doshi telephone call outreach /) 05/27/2024 Patient Outreach [facility] [address] [place] [phone] Jessi Dueñas MD Care Coordination (C3 [facility] telephone call outreach) 05/27/2024 Telephone [facility] [address] [place] [address] [phone] Jessi Dueñas MD Care Management (C3- chart review) 05/25/2024 9:40 AM EST Office Visit [facility] [address] [place] [address], [place] [address] Ignacio Rivera MD Diarrhea, unspecified type (Primary Dx); Nausea and vomiting, unspecified vomiting type 05/25/2024 Orders Only GENERIC EXTERNAL DATA DEPARTMENT Provider, Generic External Data 05/17/2024 11:00 AM EST Office Visit [facility] [address] [place] [phone] Jessi Dueñas MD Weight loss of more than 10% body weight (Primary Dx); Post concussion syndrome; Gastroesophageal reflux disease without esophagitis; Bipolar affective disorder, currently depressed, moderate ([facility]); Fibromyalgia 05/17/2024 Orders Only GENERIC EXTERNAL DATA DEPARTMENT Provider, Generic External Data 05/17/2024 Travel 05/13/2024 Telephone [facility] [address] [place] [phone] Jessi Dueñas MD [facility] (Disposable Underpad/Chux Large) 05/12/2024 Refill [facility] [address] [place] [phone] Jessi Dueñas MD Allergic rhinitis, unspecified seasonality, unspecified trigger 05/02/2024 Telephone [facility] [address] [place] [phone] Jessi Dueñas MD [facility] (Disposable underpad, large/1 unit = each, 248 per mo.) 04/29/2024 Refill [facility] [address] [place] [address] [phone] Jessi Dueñas MD Fibromyalgia 04/17/2024 Telephone [facility] [address] [place] [address] [phone] Jessi Dueñas MD 04/17/2024 Orders Only [facility] [address] [place] [address] [phone] Jessi Dueñas MD Acute bilateral low back pain without sciatica (Primary Dx); Polyarthralgia; Chronic pain of both knees; Bilateral hand pain 04/11/2024 Telephone [facility] [address] [place] [address] [phone] Jessi Dueñas MD Referral 04/09/2024 11:30 AM EST Office Visit [facility] [address] [place] [phone] Jessi Dueñas MD Acute right ankle pain (Primary Dx); Weight loss of more than 10% body weight; Bipolar disorder, current episode mixed, moderate (CMS/HCC); Mild persistent asthma without complication; Incontinence of feces, unspecified fecal incontinence type; Post concussion syndrome 04/09/2024 Telephone [facility] [address] [place] [address] Jessi Dueñas MD 04/09/2024 Telephone [facility] [address] [place] [address] Jessi Dueñas MD Durable Medical Equipment (L&C Form: Boost) 04/09/2024 Travel from Last 3 Months Immunizations Name [...] 9:45 AM EDT Office Visit [facility] [address] [place] [address] Jessi Dueñas MD [address] [place] [address] Health Maintenance Due Date Last Done Comments [...] Associated Diagnosis Comments US PELVIS TRANSVAGINAL Routine 1:10 PM EDT BACTERIAL VAGINOSIS PANEL Routine 06/19/2024 12:00 AM [...] Recently Relevant to Health Maintenance Results * US Pelvis Transvaginal (07/02/2024 1:10 PM EDT) Anatomical Region Laterality Modality Pelvis Ultrasound 07/02/2024 1:10 PM EDT Narrative 07/03/2024 7:10 AM EDT ? [facility] ?[address] ? [place] [address] ? Ultrasound Report ? Signed ? Patient: Kera Armstrong ?MR#: MM ?? [id number] ? : 1980 ?Acct:[id number] ? Age/Sex: 43 / F ?ADM Date: 07/02/24 ? Loc: HO.HMGCX ? Attending Dr: Lindsey Zuñiga CNM ? Ordering Physician: Lindsey Zuñiga CNM ?? Date of Service: 07/02/24 ?? Procedure(s): US pelvic and transvaginal ?? Accession Number(s): [id number] ? cc: Jessi Dueñas; Lindsey Zuñiga CNM ? EXAMINATION: ??US PELVIS [...] by Everett Rich MD in OV> ?07/03/24 07 ? DD/ 1310 ? TD/TT: 07/02/24 1335 ? Senior Director Insight: ? Procedure Note Donotuseinterpreter, Image - 07/03/2024 [facility] [address] [place] [address] [place] [address] Ultrasound Report Signed Patient: Kera Armstrong#: MM [id number] : 1980Acct:[id number] Age/Sex: 43 / FADM Date: 07/02/24 Loc: HO.HMGCX Attending Dr: Lindsey Zuñiga CNM Ordering Physician: Lindsey Zuñiga CNM Date of Service: 07/02/24 Procedure(s): US pelvic and transvaginal Accession Number(s): [id number] cc: Jessi Dueñas; Lindsey Zuñiga CNM EXAMINATION: [...] 07/03/24 0708 DD/ 1310 TD/TT: 07/02/24 1335 Senior Director Insight: [facility] External Provider IMG US PROCEDURES Edited Result - Final * (ABNORMAL) Bacterial Vaginosis (06/19/2024 12:00 AM EDT) TRICHOMONAS VAGINALIS DETECTION BY PCR NOT DETECTED Not Detect [facility] BACTERIAL VAGINOSIS DETECTION BY PCR POSITIVE(A) Negative [facility] Comment:The BV organism targ ets [...] DETECTION BY PCR NOT DETECTED Not Detect [facility] Latanya glab krusei PCR NOT DETECTED Not Detect [facility] 06/19/2024 06/19/2024 us Generic External Data Provider LAB MICROBIOLOGY - GENERAL ORDERABLES Final Result [facility] [address] [place] [phone] * Chlamydia/N. Gonorrhoeae RNA, TMA, Urogenitial (06/19/2024 12:00 AM EDT) CT PCR NOT DETECTED Not Detect. [facility] Comment:A not detected test result [...] psychologicalconsequences. NG PCR NOT DETECTED Not Detect. [facility] Comment:A not detected test result [...] medical, social or psychologicalconsequences. 06/19/2024 06/19/2024 Narrative [facility] - 06/20/2024 3:48 AM EDT Vaginal us Generic External Data Provider LAB MICROBIOLOGY - GENERAL ORDERABLES Final Result Performing Organization Address [facility]/State/ZIP Co de Phone Number [facility] [address] [facility] [place] [address] [phone] * MR MRCP (05/30/2024 7:29 AM EST) Anatomical Region Laterality Modality Lower Extremities Left Magnetic Reson ance 05/30/2024 7:29 AM EST Narrative 05/30/2024 8:24 AM EST ? [facility] ?[address] ?[place] [address] ? Magnetic Resonance Report ? Signed ? Patient: Kera Armstrong ?MR#: MM ?? [id number] ? : 1980 ?Acct:[id number] ? Age/Sex: 43 / F ?ADM Date: 05/30/24 ? Loc: HO.MRI ? Attending Dr: Ashley MILNER-BC ? Ordering Physician: Ashley Duncan ?? Date of Service: 05/30/24 ?? Procedure(s): MR MRCP ?? Accession Number(s): [id number] ? cc: Jessi Dueñas; Ashley Duncan HEAD PORTER-BC ? EXAMINATION: ??MRCP ? HISTORY: R63.4 - [...] DD/ 0729 ? TD/TT: 05/30/24 0805 ? Senior Director Insight: ? Procedure Note Cy, Image - 05/30/2024 [place] [address] Magnetic Resonance Report Signed Patient: Kera ArmstrongMR#: [id number] : 1980Acct:[id number] Age/Sex: 43 / FADM Date: 05/30/24 Loc: HO.MRI Attending Dr: Ashley AZEVEDO Ordering Physician: Ashley Duncan Date of Service: 05/30/24 Procedure(s): MR MRCP Accession Number(s): [id number] cc: Jessi Dueñas; [facility] MRCP HISTORY: R63.4 - Abnormal weight [...] 05/30/2024 08:21 AM EST RP Dictated By: Everett Rich MD Signed By: <Electronically signed by Everett Rich MD in OV> 05/30/24 0821 DD/ 0729 TD/TT: 05/30/24 0805 Senior Director Insight: [facility] External Provider IMG MRI PROCEDURES Final Result * SARS-CoV-2 RNA, Influenza A/B, and RSV RNA, Ql NAAT (05/25/2024 11:59 PM EST) Influenza A PCR NEGATIVE Negative [facility] Influenza B PCR NEGATIVE Negative [facility] Resp Syncy Virus RNA Qual PCR NEGATIVE Negative [facility] SARS COV2 PCR NEGATIVE Negative [facility] Comment:All test results mus [...] use by authorized laboratories.Testing performed on the [employer] GeneXpert utilizingreal-time RT-PCR.All SARS CoV2 and positive influenza A/B results arereported to [facility]. 05/25/2024 11:5 9 PM EST 05/26/2024 12:02 AM EST us Generic External Data Provider LAB MICROBIOLOGY - GENERAL ORDERABLES Final Result [facility] [address] [place] [address] [phone] * (ABNORMAL) CBC auto differential (05/25/2024 11:59 PM EST) White Blood Count 7.4 4.8 - 10.8 X10*3/uL [facility] Red Blood Count 3.94(L) 4.20 - 5.50 X10*6/uL [facility] Hemoglobin 12.4 12.0 - 16.0 g/dl [facility] Hematocrit 35.1(L) 37.0 - 47.0 % [facility] Mean Corpuscular Volume 89.1 80.0 - 98.0 fL [facility] Mean Corpuscular Hemoglobin 31.5 27.0 - 33.0 pg [facility] Mean Corpuscular HGB Conc 35.3(H) 31.0 - 35.0 g/dl [facility] Red Cell Distribution Width 12.4 11.0 - 16.0 % [facility] Platelet Count 284 160 - 400 X10*3/uL [facility] Mean Platelet Volume 9.2(L) 9.4 - 12.3 fL [facility] Neutrophils Percent Auto 43.6(L) 45 - 73 % [facility] Imm Gran Pct Auto 0.1 0.0 - 0.4 % [facility] Lymphocytes Percent Auto 49.7(H) 20 - 40 % [facility] Monocytes Percent Auto 6.3 2 - 11 % [facility] Eosinophils Percent Auto 0.3 0 - 4 % [facility] Basophils Percent Auto 0.0 0 - 2 % [facility] NRBC Pct Auto 0.0 0.0 - 0.2 /100WBC [facility] Neutrophils Absolute Auto 3.2 2.0 - 8.3 x10*3/uL [facility] Imm Gran Abs Auto 0.01 0.00 - 0.03 X10*3/uL [facility] Lymphocytes Absolute Auto 3.7 1.2 - 4.9 X10*3/uL [facility] Monocytes Absolute Auto 0.5 0.1 - 1.2 X10*3/uL [facility] Eosinophils Absolute Auto 0.0 0.0 - 0.4 X10*3/uL [facility] Basophils Absolute Auto 0.0 0.0 - 0.2 X10*3/uL [facility] NRBC Abs Auto 0.000 0.0 - 0.012 X10*3/uL [facility] 05/25/2024 11:5 9 PM EST 05/26/2024 12:02 AM EST us Generic External Data Provider LAB BLOOD ORDERAB LES Final Result Performing Organization Address City/State/[facility] Co de Phone Number [facility] [address] [place] [phone] * hCG, Total, Quantitative (05/25/2024 11:59 PM EST) HCG Quantitative <2 mIU/mL [facility] Comment:Weeks post LMP Appro ximate hCG(Last Menstrual Period) Range (mIU/ml)3 - 4 weeks 9 - 1304 - 5 weeks 75 - 2,6005 - 6 weeks 850 - 20,8006 - 7 weeks 4000 - 100,2007 - 12 weeks 11,500 - 289,57548 - 16 weeks 18,300 - 137,68728 - 29 weeks (2nd trimester) 1,400 - 53,35498 - 41 weeks (3rd trimester) 940 - [...] ORDERAB LES Final Result Performing Organization Address [facility] Co de Phone Number [facility] [address] [place] [phone] * Magnesium (05/25/2024 11:59 PM EST) Magnesium 2.0 1.6 - 2.6 mg/dL [facility] 05/25/2024 11:5 9 PM EST 05/26/2024 12:02 AM EST Generic External Data Provider LAB BLOOD ORDERAB LES Final Result Performing Organization Address [facility] Phone Number [facility] [address] [place] [phone] * Lipase (05/25/2024 11:59 PM EST) Only the most recent of2 resultswithin the time period is included. Lipase 33 8 - 78 U/L [facility] 05/25/2024 11:5 9 PM EST 05/26/2024 12:02 AM EST Generic External Data Provider LAB BLOOD ORDERAB LES Final Result Performing Organization Address [facility] Co de Phone Number [facility] [address] [place] [phone] * Hepatic Function Panel (05/25/2024 11:59 PM EST) Only the most recent of2 resultswithin the time period is included. Bilirubin, Total 0.5 0.0 - 1.0 mg/dL [facility] Bilirubin, Direct 0.2 0.0 - 0.5 mg/dL [facility] Aspartate Amino Transferase 21 5 - 31 U/L [facility] Alanine Aminotransferase 21 0 - 31 U/L [facility] Total Protein 6.9 6.5 - 8.0 g/dL [facility] Albumin Level 4.0 3.5 - 5.0 g/dL [facility] Alkaline Phosphatase 52 39 - 117 U/L [facility] 05/25/2024 11:5 9 PM EST 05/26/2024 12:02 AM EST us Generic External Data Provider LAB BLOOD ORDERAB LES Final Result [facility] [address] [place] [address] [phone] * (ABNORMAL) Basic Metabolic Panel (05/25/2024 11:59 PM EST) Sodium 140 135 - 145 mmol/L [facility] Potassium 3.6 3.3 - 5.1 mmol/L [facility] Chloride 110(H) 96 - 108 mmol/L [facility] Carbon Dioxide 23 22 - 29 mmol/L [facility] Anion Gap 11(L) 12 - 20 [facility] Urea Nitrogen (BUN) 14 9 - 16 mg/dL [facility] Creatinine, Serum 0.83 0.5 - 1.4 mg/dL [facility] Creatinine Clr Calc Pharmacy 74.7 [facility] Comment:Provided height and weight: 170.18 cm,53.1 kg.eGFR (calculated from the MDRD study equation) and eCrCl(calculated from the Cockcroft-Gault equation) are based ondifferent parameters and may not yield comparable results.If eCrCl result is absurd, please check patient'sheight/weight. Estimated Glomerular Filt Rate >60 [facility] Comment:Chronic Kidney Disea se: Estimated GFR < 60 mL/min/1.19j4Aambjk Kidney Disease: Estimated GFR < 15 mL/min/1.73m2 Glucose 100 60 - 115 mg/dL [facility] Calcium 8.8 8.4 - 10.2 mg/dL [facility] 05/25/2024 11:5 9 PM EST 05/26/2024 12:02 AM EST Generic External Data Provider LAB BLOOD ORDERAB LES Final Result Performing Organization Address [facility] de Phone Number [facility] [address] [place] [phone] * POCT Rapid Influenza B BOYER ID NOW (05/25/2024 9:52 AM EST) Influenza B Negative Negative, Indeterminate [facility] QC Media Lot # [id number] [facility] Lot# Expiration Date [facility] Swab 05/25/2024 9:52 AM EST Ignacio Rivera MD POINT OF CARE TEST ENTER/EDIT OR DERABLES Final Result Performing Organization Address [facility] de Phone Number [facility] [address] [place] [phone] * POCT Rapid Influenza A BOYER ID NOW (05/25/2024 9:51 AM EST) Influenza A Negative Negative, Indeterminate [facility] QC Media Lot # [id number] [facility] Lot# Expiration Date [facility] Swab 05/25/2024 9:51 AM EST us Ignacio Rivera MD POINT OF CARE TEST ENTER/EDIT OR DERABLES Final Result Performing Organization Address [facility] Co de Phone Number [facility] [address] [place] [phone] * POCT Rapid Covid-19 BinaxNOW (05/25/2024 9:51 AM EST) Rapid COVID Ag Negative QC Media Lot # [id number] Lot# Expiration Date 026 Swab 05/25/2024 9:51 AM EST us Ignacio Rivera MD POINT OF CARE TEST ENTER/EDIT OR DERABLES Final Result * VITAMIN D 25-OH (D2 AND D3) (05/17/2024 9:40 AM EST) Vitamin D, 25-OH, D2 <4 ng/mL [facility] Comment:This test was develo ped and its analytical performancecharacteristics have been determined by [employer] [place], [place]. It hasnot been cleared or approved by the U.S. Food and DrugAdministration. This assay has been validated pursuantto the CLIA regulations and is used for clinicalpurposes.THIS TEST WAS PERFORMED AT:[email or web address] [id number] [place] [address]MVZKANNKHANG MADRID MD,PHD Vitamin D, 25-OH, D3 31 ng/mL [facility] Comment:This test was develo ped and its analytical performancecharacteristics have been determined by [employer], [place]. It hasnot been cleared or approved by the U.S. Food and DrugAdministration. This assay has been validated pursuantto the CLIA regulations and is used for clinicalpurposes. Vitamin D, 25-OH, Total 31 30 - 100 ng/mL [facility] Comment:Vitamin D, 25-Hydrox y reports [...] = 30 ng/mL.For additional information, please refer tohttp://education.[employer]/faq/TYA722(This link is being provided for informational/educational purposes only.) 05/17/2024 9:40 AM EST 05/17/2024 9:40 AM EST us Generic External Data Provider LAB BLOOD ORDERAB LES Final Result Performing Organization Address City/[facility]/ZIP Co de Phone Number [facility] [address] [place] [phone] * Vitamin B12 (Cobalamin) and Folate Panel, Serum (05/17/2024 9:40 AM EST) Pathologist [facility] Vitamin B12 474 200 - 900 pg/mL [facility] Comment:NORMAL 200-900 PG/ML INDETERMINATE 160-199 PG/ML DEFICIENT < 160 PG/ML Folate 15.2 > or = 4.0 ng/mL [facility] Comment:Reference Values:> o r = 4.0 ng/mL< 4.0 ng/mL suggests folate deficiency Methotrexate, aminopterin and folinic acid(leucovorin) are chemotherapeutic agents whose molecularstructures are similar to folate; therefore, the Architectfolate assay cannot be used for patients using these drugs. 05/17/2024 9:40 AM EST 05/17/2024 9:40 AM EST Generic External Data Provider LAB BLOOD ORDERAB LES Final Result Performing Organization Address [facility] Co de Phone Number [facility] [address] [place] [phone] * TSH with Reflex to Free T4 (05/17/2024 9:40 AM EST) Pathologist [facility] TSH reflex Free T4 1.12 0.32 - 4.0 uIU/mL [facility] 05/17/2024 9:40 AM EST 05/17/2024 9:40 AM EST Generic External Data Provider LAB BLOOD ORDERAB LES Final Result Performing Organization Address [facility] Co de Phone Number [facility] [address] [place] [phone] * Hepatitis Panel, General (05/17/2024 9:40 AM EST) Pathologist [facility] Hepatitis A IgM Nonreactive Nonreactive [facility] Comment:IgM antibodies to AMAYA V not detected; does not exclude earlyacute or recovered HAV infection. ~Hepatitis B Surface Antibody REACTIVE Nonreactive [facility] Comment:REACTIVE: > 11.99 mI U/mL Hepatitis B Core Antibody Nonreactive Nonreactive [facility] Hepatitis C Antibody Nonreactive Nonreactive [facility] Comment:Antibodies to HCV no t detected; does not exclude early acuteHCV infection. Hepatitis B Surface Ag Negative Negative [facility] 05/17/2024 9:40 AM EST 05/17/2024 9:40 AM EST us Generic External Data Provider LAB BLOOD ORDERAB LES Final Result Performing Organization Address [facility] Co de Phone Number [facility] [address] [place] [phone] * HIV-1/2 Antigen and Antibodies, Fourth Generation, with Reflexes (05/17/2024 9:40 AM EST) Pathologist [facility] HIV AB/AG Nonreactive Nonreactive [facility] Comment:HIV-1 p24 Ag and/or HIV-1/HIV-2 Ab not detected.A test result that is nonreactive does not exclude thepossibility of exposure to or infection with HIV-1 and/orHIV-2. Nonreactive results in this assay for individualswith prior exposure to HIV-1 and/or HIV-2 may be due toantigen and antibody levels that are below the limit ofdetection of this assay.The [employer] HIV Ag/Ab Combo assay result andsupplemental assay results should be interpreted inconjunction with the patient's clinical presentation,history and other laboratory results. If the results areinconsistent with clinical evidence, additional testing issuggested to confirm the result. 05/17/2024 9:40 AM EST 05/17/2024 9:40 AM EST us Generic External Data Provider LAB BLOOD ORDERAB LES Final Result Performing Organization Address City/[facility]/ZIP Co de Phone Number [facility] [address] [place] [address] [phone] * XR Ankle 3+ Views Right (04/09/2024 12:22 PM EST) Anatomical Region Laterality Modality Lower Extremities, Ankle Right Radiogr aphic Imaging 04/09/2024 12:2 2 PM EST Narrative 04/09/2024 12:45 PM EST ?[facility] ?[address] ?[place] [address] ?XRay Report ? Signed ? Patient: Kera Armstrong ?MR#: [id number] ?? [id number] ? : 1980 ?Acct:[id number] ? Age/Sex: 43 / F ?ADM Date: 04/09/24 ? Loc: HO.HHCX ? Attending Dr: Jessi Dueñas MD ? Ordering Physician: Jessi Dueñas ?? Date of Service: 04/09/24 ?? Procedure(s): XR ankle RT min 3V ?? Accession Number(s): [id number] ? cc: Jessi Dueñas ? EXAMINATION: ?? [...] DD/ 1222 ? TD/TT: 04/09/24 1231 ? Senior Director Insight: MSM ? Procedure Note Cy, Image - 04/09/[address] [address] XRay Report Signed Patient: Kera ArmstrongMR#: [id number] : 1980Acct:[id number] Age/Sex: 43 / FADM Date: 04/09/24 Loc: HO.HHCX Attending Dr: Jessi Dueñas MD Ordering Physician: Jessi Dueñas Date of Service: 04/09/24 Procedure(s): XR ankle RT min 3V Accession Number(s): [id number] cc: Jessi Dueñas EXAMINATION: XR ANKLE, RIGHT [...] by: Merritt Elizalde MD 04/09/2024 12:42 PM [facility] Dictated By: Merritt Elizalde MD Signed By: <Electronically signed by Merritt Elizalde MD in OV> 04/09/24 1242 DD/ 1222 TD/TT: 04/09/24 1231 Senior Director Insight: ALTON us Jessi Dueñas MD IMG XR PROCEDURES Edited Resul t - Final * BI Mammogram Screening Tomosynthesis Bilateral (09/28/2023 12:08 PM EDT) Anatomical Region Laterality Modality Breast Bilateral Mammography 09/28/2023 12:0 8 PM EDT Narrative 10/27/2023 9:20 AM EDT ? [facility] [place] ? [address] ?[place] [address] ? Mammography Report ? Signed ? Patient: Kera Armstrong ?MR#: [id number] ?? [id number] ? : 1980 ?Acct:[id number] ? Age/Sex: 42 / F ?ADM Date: 06/27/24 ? Loc: HO.MAMMO ? Attending Dr: Jessi Dueñas MD ? Ordering Physician: Anita Arriaga MD ?Re ?? sults: 1Negative ? Date of Service: 09/28/23 ?Follow Up: 1 Year From Orig ?? inal Mammogram ? Procedure(s): MM tomosynthesis screening BI ?? Accession Number(s): [id number] ? cc: Jessi Dueñas; Anita Arriaga MD [...] 0916 ? DD/ 1208 ? TD/TT: ? Senior Director Insight: ? Procedure Note Donotuseinterpreter, Image - 10/27/2023 [facility] [address] [place] [address] Mammography Report Signed Patient: Kera ArmstrongMR#: [id number] : 1980Acct:[id number] Age/Sex: 42 / FADM Date: 09/28/23 Loc: PINA Attending Dr: Jessi Dueñas MD Ordering Physician: Anita Arriaga sults: 1Negative Date of Service: 09/28/23Follow Up: 1 Year From Orig inal Mammogram Procedure(s): MM tomosynthesis screening BI Accession Number(s): [id number] cc: Jessi Dueñas; Anita Arriaga MD EXAMINATION: [...] in OV> 10/27/23 0916 DD/ 1208 TD/TT: Senior Director Insight: Anita Roca MD IMG BI PROCEDURES Final [...] was manually screened according to routine procedures. Apprentice Photographer : [facility] Comment: KN, CT(ASCP) CT screening location: [address] ??[address] Interpretation/R esult: Negative for intraepithelial lesion or [...] Dueñas MD LAB PATHOLOGY ORDERABLES Final Result [facility] [address] * HPV mRNA E6/E7 REFLEX TO HPV 16, 18/45 (02/22/2021 12:00 AM EST) HPV nRNA E6/E7 Not Detected Not Detected [facility] Comment: Methodology: Monitoring Specialist-Mediated Amplification This assay detects E6/E7 viral messenger RNA (mRNA) from 14 high-risk HPV types (16,18,31,33,35,39,45,51,52,56,58,59,66,68). ? The analytical performance characteristics of this assay have been determined by [employer]. The modifications have not been cleared or approved by the FDA. This assay has been validated pursuant to the CLIA regulations and is used for clinical purposes. ?? For additional information, please refer to http://education.[employer]/faq/HWF307j4 (This link if provided for information/ educational purposes only.) 02/22/2021 us Jessi Dueñas MD LAB CYTOLOGY ORDERABLES Final Result [facility] Any[address] from Last 3 Months or Most Recently Relevant to Health Maintenance Insurance [facility] C3 HSN PARTIAL Care Teams Conductor Symphonic Orchestra Relationship Specialty Start Date End Date Jessi Dueñas MD [address] [place] [address] PCP - General Family Medicine 11/24/20 Mikayla Bhagat Repairer Art ObjectsPerlite Grinder 05/09/23
--- OUTSIDE RECORDS SUMMARY | 2024-07-04 08:25 | XMS_ITS | Encounter Summary ---
Author Organization [employer] Address [address] [facility] 7t [place] [address] Care Team Providers Care Etl Application Developer Name Role Phone Jessi Dueñas MD Primary Care Provider [phone] Reason for Visit * Reason Comments Med Refill Encounter Details Date Type Department Care Team ([facility] st Contact Info) Description 11/23/2023 Refill [facility] [address] [place], [place] [phone] Jessi Dueñas MD [address] [place] [address] Social History Tobacco Use Types Packs/Day Years [...] Visit [facility] [address] [place] [address] Jessi Dueñas MD [address] [place] [address] documented as of this encounter Visit Diagnoses Not on filedocumented in this encounter Additional Health Concerns Assessment Noted Time PHQ-9 Depression Total Score: 8 09/19/19 24 11:07 AM EDT documented as of this encounter Care Teams Etl Application Developer Relationship Specialty Start Date End Date Jessi Dueñas MD [address] [place] [address] PCP - General Family Medicine 11/24/20 Mikayla Bhagat Front End Loader DriverRespiratory Care Technician 05/09/23 documented as of this encounter
--- OUTSIDE RECORDS SUMMARY | 2024-07-04 08:25 | XMS_ITS | Encounter Summary ---
Author Organization [employer] Address [address] [facility] 7 [place] [address] Care Team Providers Care Human Factors Ergonomist Name Role Phone Jessi Dueñas MD Primary Care Provider [phone] Reason for Visit * Reason Onset Date [...] Encounter Details Date Type Department Care Team ([facility] st Contact Info) Description 06/03/[address] [facility] [address] [place], [place] [phone] Jessi Dueñas MD [address] [place], [place] [phone] Fibromyalgia Social History Tobacco Use Types Packs/Day [...] Upcoming Encounters Date Type Department Care Team ([facility] st Contact Info) Description 07/26/2024 9:45 AM EDT Office Visit [facility] [address] [place] [address] Jessi Dueñas MD [address] [place] [address] documented as of this encounter Visit Diagnoses Diagnosis Fibromyalgia Unspecified myalgia and myositis documented in this encounter Additional Health Concerns Assessment Noted Time PHQ-9 Depression Total Score: 8 09/19/19 24 11:07 AM EDT documented as of this encounter Care Teams Human Factors Ergonomist Relationship Specialty Start Date End Date Jessi Dueñas MD [address] [place] [address] PCP - General Family Medicine 11/24/20 Mikayla Bhagat Map ColorerDitch Inspector 05/09/23 documented as of this encounter
--- OUTSIDE RECORDS SUMMARY | 2024-07-04 08:25 | XMS_ITS | Encounter Summary ---
Author Organization [employer] Address [address] [facility] [address] [place] [address] Care Team Providers Care Corporate Tutor Name Role Phone Jessi Dueñas MD Primary Care Provider Encounter Details Date Type Department Care Team ([facility] st Contact Info) Description 09/22/[address] [facility] [address] [place], [place] [phone] Jessi Dueñas MD [address] [place], [place] [phone] Social History Tobacco Use Types Packs/Day Years [...] Description 07/26/2024 9:45 AM EDT Office Visit [facility] [address] [place] [address] Jessi Dueñas MD [address] [place] [address] documented as of this encounter Visit Diagnoses Not on filedocumented in this encounter Additional Health Concerns Assessment Noted Time PHQ-9 Depression Total Score: 8 09/19/19 24 11:07 AM EDT documented as of this encounter Care Teams Corporate Tutor Relationship Specialty Start Date End Date Jessi Dueñas MD [address] [place] [id number] PCP - General Family Medicine 11/24/20 Mikayla Bhagat Industrial Health EngineerElectrical Engineering Technologist 05/09/23 documented as of this encounter
== END 2024-07-04 09:12 | disposition home or self-care (01) ==
LOC: HO.HWS 08:18
PROVIDERS: PCP General Practice; Visit Provider Obstetrics & Gynecology
DX: N93.9 Abnormal uterine and vaginal bleeding, unspecified (principal); R10.2 Pelvic and perineal pain; R31.29 Other microscopic hematuria; Z30.433 Encounter for removal and reinsertion of intrauterine contraceptive device; Z32.02 Encounter for pregnancy test, result negative
CPT/HCPCS: 58300; 58301; 99214

== ENCOUNTER 2024-07-04 08:18 | Outpatient (REF) | payer MEDICAID, SELFPAY ==
--- OUTSIDE RECORDS SUMMARY | 2024-07-04 09:21 | XMS_ITS | Encounter Summary ---
Author Organization [employer] Address [address] [facility] 7t [place] [address] Care Team Providers Care Jalousies Installer Name Role Phone Jessi Dueñas MD Primary Care Provider [phone] Encounter Details Date Type Department Care Team ([facility] st Contact Info) Description 05/18/2023 Telephone [facility] [address] [place], [place] [phone] Jessi Dueñas MD [address] [place], [place] [phone] Social History Tobacco Use Types Packs/Day Years [...] Lopez RN - 05/18/2023 8:48 AM EST RADIOLOGY INTERVENTIONAL PHYSICIAN referral made to [facility], referral form faxed with confirmation of receipt. documented in this encounter Plan of Treatment Upcoming Encounters Date Type Department Care Team (Late st Contact Info) Description 07/26/2024 9:45 AM EDT Office Visit [facility] [address] [place] [address] Jessi Dueñas MD [address] [place] [address] documented as of this encounter Visit Diagnoses Not on filedocumented in this encounter Additional Health Concerns Assessment Noted Time PHQ-9 Depression Total Score: 20 023 9:49 AM EDT documented as of this encounter Care Teams Jalousies Installer Relationship Specialty Start Date End Date Jessi Dueñas MD [address] [place] [address] PCP - General Family Medicine 11/24/20 Mikayla Bhagat Tire Center ManagerSecurity Orderly 05/09/23 documented as of this encounter
--- OUTSIDE RECORDS SUMMARY | 2024-07-04 09:21 | XMS_ITS | Encounter Summary ---
Author Organization [employer] [facility] Address [address] [facility] 7 [place] [address] Care Team Providers Care Steel Fabricator Name Role Phone Jessi Dueñas MD Primary Care Provider [phone] Reason for Visit * Reason Onset Date Comments Other 01/05/2023 Encounter Details Date Type Department Care Team ([facility] st Contact Info) Description 01/05/2023 Telephone [facility] [address] [place] [address] Jessi Dueñas MD [address] [place] [address] Other Social History Tobacco Use Types Packs/Day [...] 12:53 PM EDT TC placed to pt [phone] to inform pt PCP sent Cymbalta to the pharmacy yesterday at [facility] for her pain. Pt reports she called [facility] pharmacy today and they told her that they did not receive the script. RN placed pt on hold and called [facility] pharmacy who confirmed they did receive [...] rheumatology referral d/t [facility] not speaking eritrean. Pt was informed PCP has placed new rheumatology referral for [facility] yesterday. Pt verbalized understanding. Pt to f/u PRN. * Telephone Encounter - Divya Frank - 01/05/2023 11:51 AM EDT Tc from pt states PCP advised her she will send a script for pain on 01/04 appointment but pt never received medication. Please contact pt at [phone] (Angolan) documented in this encounter Plan of Treatment Upcoming Encounters Date Type Department Care Team (Late st Contact Info) Description 07/26/2024 9:45 AM EDT Office Visit [facility] [address] [place] [address] Jessi Dueñas MD [address] [place] [phone] documented as of this encounter Visit Diagnoses Not on filedocumented in this encounter Additional Health Concerns Assessment Noted Time PHQ-9 Depression Total Score: 20 023 9:49 AM EDT documented as of this encounter Care Teams Steel Fabricator Relationship Specialty Start Date End Date Jessi Dueñas MD [address] [place] [address] PCP - General Family Medicine 11/24/20 Mikayla Bhagat Ladle PatcherTechnology Assistant 05/09/23 documented as of this encounter
--- OUTSIDE RECORDS SUMMARY | 2024-07-04 09:21 | XMS_ITS | Clinical Summary ---
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 LINING agreement: Tier II (visit every 3 months) [...] & Plan (12/08/2023 9:32 AM EDT): From barrel roller last apt 09/2023 Labs showed low titer [...] & Plan (10/06/2023 12:39 PM EDT): From barrel roller last apt 09/2023 Labs showed low titer [...] & Plan (09/19/2023 6:11 PM EDT): From barrel roller last apt 09/2023 Labs showed low titer [...] has already asked an agency to do 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 To go to medical records and [...] (05/19/2023 10:31 AM EST): Plan to see [facility] rheumatology in June 2023, JUANITO + , [...] 12:59 PM EST): Will send referral to [facility] rheumatology, JUANITO + , whole body pain, fatigue, all worse after two episodes of C diff Still likely fibromyalgia Recommend avoidance of marijuana and cocaine, drugs purchased on the street Assessment & Plan (01/04/2023 7:56 PM EDT): Will send referral to [facility] rheumatology, JUANITO + , whole body pain, [...] aware of side effects, somnolence, 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 Neck pain 10/27/2022 [...] & Plan (02/20/2023 12:56 PM EST): Call [facility] to get appointment at their Rheum clinic [...] Department Care Team Description 07/02/2024 Orders Only [facility] External Provider, [facility] 07/02/2024 Refill [facility] [address] [place] [address] [phone] Jessi Dueñas MD Fibromyalgia 06/27/2024 Telephone [facility] [address] [place] [address] [phone] Jessi Dueñas MD DME from [place] 06/19/2024 Orders Only GENERIC EXTERNAL DATA DEPARTMENT Provider, [facility] External Data 06/18/2024 3:20 PM EDT Office Visit [facility] [address] [place] [address] [phone] Name, MD Rolo Pierre (Primary Dx) 06/18/2024 Patient Outreach [facility] [address] [place] [address] [phone] Jessi Dueñas MD Care Coordination ([address] [facility] Doshi telephone call outreach) 06/17/2024 Telephone [facility] [address] [place] [address] [phone] Jessi Dueñas MD LETTER 06/14/2024 Orders Only [facility] [address] [place] [address] [phone] Jessi Dueñas MD Restless leg syndrome 06/14/2024 Population Health Risk Score Community [facility] (C3) Department [address] [place] [address] [phone] Provider, Population Health Generic 06/12/2024 Telephone [facility] [address] [place] [address] [phone] Jessi Dueñas MD Medication Question; Med Refill 06/08/2024 Refill [facility] [address] [place] [address] [phone] Jessi Dueñas MD 06/03/2024 Refill [facility] [address] [place] [address] [phone] Jessi Dueñas MD Fibromyalgia 05/30/2024 Patient Outreach [address] [phone] Jessi Dueñas MD Care Coordination (C3 -[facility] [place] [facility] telephone call outreach) 05/30/2024 Orders Only [facility] External Provider, [facility] 05/29/2024 Patient Outreach [facility] [address] [place] [address] [phone] Jessi Dueñas MD Transition Of Care (Tcm) (ED visit requested) 05/29/2024 Telephone [facility] [address] [place] [address] [phone] Jessi Dueñas MD Med Refill 05/29/[address] [phone] Jessi Dueñas MD Fibromyalgia 05/28/2024 Patient Outreach [address] [phone] Jessi Dueñas MD Transition Of Care (Tcm) (ERRORr) 05/27/2024 Patient Outreach [address] [phone] Jessi Dueñas MD Care Coordination (C3 [facility] Doshi telephone call outreach /) 05/27/2024 Patient Outreach [facility] [address] [place] [address] [phone] Jessi Dueñas MD Care Coordination (C3 [facility] telephone call outreach) 05/27/2024 Telephone [facility] [address] [place] [address] [phone] Jessi Dueñas MD Care Management (C3- chart review) 05/25/2024 9:40 AM EST Office Visit [facility] [address] [place] [address], [place] [address] Ignacio Rivera MD Diarrhea, unspecified type (Primary Dx); Nausea and vomiting, unspecified vomiting type 05/25/2024 Orders Only GENERIC EXTERNAL DATA DEPARTMENT Provider, Generic External Data 05/17/2024 11:00 AM EST Office Visit [facility] [address] [place] [address] [phone] Jessi Dueñas MD Weight loss of more than 10% body weight (Primary Dx); Post concussion syndrome; Gastroesophageal reflux disease without esophagitis; Bipolar affective disorder, currently depressed, moderate ([facility]); Fibromyalgia 05/17/2024 Orders Only GENERIC EXTERNAL DATA DEPARTMENT Provider, Generic External Data 05/17/2024 Travel 05/13/2024 Telephone [facility] [address] [place] [address] [phone] Jessi Dueñas MD [facility] (Disposable Underpad/Chux Large) 05/12/2024 Refill [facility] [address] [place] [address] [phone] Jessi Dueñas MD Allergic rhinitis, unspecified seasonality, unspecified trigger 05/02/2024 Telephone [facility] [address] [place] [address] [phone] Jessi Dueñas MD [facility] (Disposable underpad, large/1 unit = each, 248 per mo.) 04/29/2024 Refill [facility] [address] [place] [address] [phone] Jessi Dueñas MD Fibromyalgia 04/17/2024 Telephone [facility] [address] [place] [address] [phone] Jessi Dueñas MD 04/17/2024 Orders Only [facility] [address] [place] [address] [phone] Jessi Dueñas MD Acute bilateral low back pain without sciatica (Primary Dx); Polyarthralgia; Chronic pain of both knees; Bilateral hand pain 04/11/2024 Telephone [facility] [address] [place] [address] [phone] Jessi Dueñas MD Referral 04/09/2024 11:30 AM EST Office Visit [facility] [address] [place] [phone] Jessi Dueñas MD Acute right ankle pain (Primary Dx); Weight loss of more than 10% body weight; Bipolar disorder, current episode mixed, moderate (CMS/HCC); Mild persistent asthma without complication; Incontinence of feces, unspecified fecal incontinence type; Post concussion syndrome 04/09/2024 Telephone [facility] [address] [place] [address] Jesis Dueñas MD 04/09/2024 Telephone [facility] [address] [place] [address] Jessi Dueñas MD Durable Medical [...] [facility] [address] [place] [address] Jessi Dueñas MD [address] [place] [address] Health Maintenance Due Date Last Done Comments [...] EDT ? [facility] ?[address] ? [place] [address] ? Ultrasound Report ? Signed ? Patient: Kera Armstrong ?MR#: MM ?? [id number] ? : 1980 ?Acct:[id number] ? Age/Sex: 43 / F ?ADM Date: 07/02/24 ? Loc: HO.HMGCX ? Attending Dr: Lindsey Zuñiga CNM ? Ordering Physician: Lindsey Zuñiga CNM ?? Date of Service: 07/02/24 ?? Procedure(s): US pelvic and transvaginal ?? Accession Number(s): [id number] ? cc: Jessi Dueñas; Lindsey Zuñiga CNM [...] DD/ 1310 ? TD/TT: 07/02/24 1335 ? Primer Expeditor And Drier: ? Procedure Note Donotuseinterpreter, Image - 07/03/2024 [facility] Adult Primary Care [address] [place] [address] [place] [address] Ultrasound Report Signed Patient: Kera Armstrong#: [id number] : 1980Acct:[id number] Age/Sex: 43 / FADM Date: 07/02/24 Loc: HO.HMGCX Attending Dr: Lindsey Zuñiga CNM Ordering Physician: Lindsey Zuñiga CNM Date of Service: 07/02/24 Procedure(s): US pelvic and transvaginal Accession Number(s): [id number] cc: Jessi Dueñas; Lindsey Zuñiga CNM EXAMINATION: [...] 07/03/24 0708 DD/ 1310 TD/TT: 07/02/24 1335 Primer Expeditor And Drier: [facility] External Provider IMG US PROCEDURES Edited Result - Final * (ABNORMAL) Bacterial Vaginosis (06/19/2024 12:00 AM EDT) TRICHOMONAS VAGINALIS DETECTION BY PCR NOT DETECTED Not Detect [facility] BACTERIAL VAGINOSIS DETECTION BY PCR POSITIVE(A) Negative [facility] Comment:The BV organism targ ets of [...] DETECTION BY PCR NOT DETECTED Not Detect [facility] Latanya glab krusei PCR NOT DETECTED Not Detect [facility] 06/19/2024 06/19/2024 us Generic External Data Provider LAB MICROBIOLOGY - GENERAL ORDERABLES Final Result [facility] [address] [place] [address] [phone] * Chlamydia/N. Gonorrhoeae RNA, TMA, Urogenitial (06/19/2024 12:00 AM EDT) CT PCR NOT DETECTED Not Detect. [facility] Comment:A not detected test result does [...] psychologicalconsequences. NG PCR NOT DETECTED Not Detect. [facility] Comment:A not detected test result does [...] medical, social or psychologicalconsequences. 06/19/2024 06/19/2024 Narrative [facility] - 06/20/2024 3:48 AM EDT Vaginal us Generic External Data Provider LAB MICROBIOLOGY - GENERAL ORDERABLES Final Result Performing Organization Address [facility]/State/ZIP Co de Phone Number [facility] [address] [facility] [place] [place] [address] [phone] * MR MRCP (05/30/2024 7:29 AM EST) Anatomical Region Laterality Modality Lower Extremities Left Magnetic Reson ance 05/30/2024 7:29 AM EST Narrative 05/30/2024 8:24 AM EST ? [facility] ?[address] ?[place] [address] ? Magnetic Resonance Report ? Signed ? Patient: Kera Armstrong ?MR#: MM ?? [id number] ? : 1980 ?Acct:[id number] ? Age/Sex: 43 / F ?ADM Date: 05/30/24 ? Loc: HO.MRI ? Attending Dr: Ashley MILNER-BC ? Ordering Physician: Ashley Duncan ?? Date of Service: 05/30/24 ?? Procedure(s): MR MRCP ?? Accession Number(s): [id number] ? cc: Jessi Dueñas; Ashley Duncan FAIRING MAN-BC ? EXAMINATION: ??MRCP ? HISTORY: R63.4 - [...] DD/ 0729 ? TD/TT: 05/30/24 0805 ? Primer Expeditor And Drier: ? Procedure Note Cy, Image - 05/30/2024 [place] [address] Magnetic Resonance Report Signed Patient: Kera ArmstrongMR#: [id number] : 1980Acct:[id number] Age/Sex: 43 / FADM Date: 05/30/24 Loc: HO.MRI Attending Dr: Ashley AZEVEDO Ordering Physician: Ashley Duncan Date of Service: 05/30/24 Procedure(s): MR MRCP Accession Number(s): [id number] cc: Jessi Dueñas; [facility] MRCP HISTORY: R63.4 - Abnormal weight [...] 05/30/24 0821 DD/ 0729 TD/TT: 05/30/24 0805 Primer Expeditor And Drier: [facility] External Provider IMG MRI PROCEDURES Final Result * SARS-CoV-2 RNA, Influenza A/B, and RSV RNA, Ql NAAT (05/25/2024 11:59 PM EST) Influenza A PCR NEGATIVE Negative [facility] Influenza B PCR NEGATIVE Negative [facility] Resp Syncy Virus RNA Qual PCR NEGATIVE Negative [facility] SARS COV2 PCR NEGATIVE Negative [facility] Comment:All test results mus t [...] use by authorized laboratories.Testing performed on the [employer] GeneXpert utilizingreal-time RT-PCR.All SARS CoV2 and positive influenza A/B results arereported to [facility]. 05/25/2024 11:5 9 PM EST 05/26/2024 12:02 AM EST us Generic External Data Provider LAB MICROBIOLOGY - GENERAL ORDERABLES Final Result [facility] [address] [place] [address] [phone] * (ABNORMAL) CBC auto differential (05/25/2024 11:59 PM EST) White Blood Count 7.4 4.8 - 10.8 X10*3/uL [facility] Red Blood Count 3.94(L) 4.20 - 5.50 X10*6/uL [facility] Hemoglobin 12.4 12.0 - 16.0 g/dl [facility] Hematocrit 35.1(L) 37.0 - 47.0 % [facility] Mean Corpuscular Volume 89.1 80.0 - 98.0 fL [facility] Mean Corpuscular Hemoglobin 31.5 27.0 - 33.0 pg [facility] Mean Corpuscular HGB Conc 35.3(H) 31.0 - 35.0 g/dl [facility] Red Cell Distribution Width 12.4 11.0 - 16.0 % [facility] Platelet Count 284 160 - 400 X10*3/uL [facility] Mean Platelet Volume 9.2(L) 9.4 - 12.3 fL [facility] Neutrophils Percent Auto 43.6(L) 45 - 73 % [facility] Imm Gran Pct Auto 0.1 0.0 - 0.4 % [facility] Lymphocytes Percent Auto 49.7(H) 20 - 40 % [facility] Monocytes Percent Auto 6.3 2 - 11 % [facility] Eosinophils Percent Auto 0.3 0 - 4 % [facility] Basophils Percent Auto 0.0 0 - 2 % [facility] NRBC Pct Auto 0.0 0.0 - 0.2 /100WBC [facility] Neutrophils Absolute Auto 3.2 2.0 - 8.3 x10*3/uL [facility] Imm Gran Abs Auto 0.01 0.00 - 0.03 X10*3/uL [facility] Lymphocytes Absolute Auto 3.7 1.2 - 4.9 X10*3/uL [facility] Monocytes Absolute Auto 0.5 0.1 - 1.2 X10*3/uL [facility] Eosinophils Absolute Auto 0.0 0.0 - 0.4 X10*3/uL [facility] Basophils Absolute Auto 0.0 0.0 - 0.2 X10*3/uL [facility] NRBC Abs Auto 0.000 0.0 - 0.012 X10*3/uL [facility] 05/25/2024 11:5 9 PM EST 05/26/2024 12:02 AM EST us Generic External Data Provider LAB BLOOD ORDERAB LES Final Result Performing Organization Address City/State/[facility] Co de Phone Number [facility] [address] [place] [address] [phone] * hCG, Total, Quantitative (05/25/2024 11:59 PM EST) HCG Quantitative <2 mIU/mL [facility] Comment:Weeks post LMP Appro ximate hCG(Last Menstrual Period) Range (mIU/ml)3 - 4 weeks 9 - 1304 - 5 weeks 75 - 2,6005 - 6 weeks 850 - 20,8006 - 7 weeks 4000 - 100,2007 - 12 weeks 11,500 - 289,02197 - 16 weeks 18,300 - 137,95225 - 29 weeks (2nd trimester) 1,400 - 53,88495 - 41 weeks (3rd trimester) 940 - [...] ORDERAB LES Final Result Performing Organization Address [facility] Co de Phone Number [facility] [address] [place] [address] [phone] * Magnesium (05/25/2024 11:59 PM EST) Magnesium 2.0 1.6 - 2.6 mg/dL [facility] 05/25/2024 11:5 9 PM EST 05/26/2024 12:02 AM EST Generic External Data Provider LAB BLOOD ORDERAB LES Final Result Performing Organization Address [facility] Phone Number [facility] [address] [place] [phone] * Lipase (05/25/2024 11:59 PM EST) Only the most recent of2 resultswithin the time period is included. Lipase 33 8 - 78 U/L [facility] 05/25/2024 11:5 9 PM EST 05/26/2024 12:02 AM EST Generic External Data Provider LAB BLOOD ORDERAB LES Final Result Performing Organization Address [facility] Co de Phone Number [facility] [address] [place] [address] [phone] * Hepatic Function Panel (05/25/2024 11:59 PM EST) Only the most recent of2 resultswithin the time period is included. Bilirubin, Total 0.5 0.0 - 1.0 mg/dL [facility] Bilirubin, Direct 0.2 0.0 - 0.5 mg/dL [facility] Aspartate Amino Transferase 21 5 - 31 U/L [facility] Alanine Aminotransferase 21 0 - 31 U/L [facility] Total Protein 6.9 6.5 - 8.0 g/dL [facility] Albumin Level 4.0 3.5 - 5.0 g/dL [facility] Alkaline Phosphatase 52 39 - 117 U/L [facility] 05/25/2024 11:5 9 PM EST 05/26/2024 12:02 AM EST us Generic External Data Provider LAB BLOOD ORDERAB LES Final Result [facility] [address] [place] [address] [phone] * (ABNORMAL) Basic Metabolic Panel (05/25/2024 11:59 PM EST) Sodium 140 135 - 145 mmol/L [facility] Potassium 3.6 3.3 - 5.1 mmol/L [facility] Chloride 110(H) 96 - 108 mmol/L [facility] Carbon Dioxide 23 22 - 29 mmol/L [facility] Anion Gap 11(L) 12 - 20 [facility] Urea Nitrogen (BUN) 14 9 - 16 mg/dL [facility] Creatinine, Serum 0.83 0.5 - 1.4 mg/dL [facility] Creatinine Clr Calc Pharmacy 74.7 [facility] Comment:Provided height and weight: 170.18 cm,53.1 kg.eGFR (calculated from the MDRD study equation) and eCrCl(calculated from the Cockcroft-Gault equation) are based ondifferent parameters and may not yield comparable results.If eCrCl result is absurd, please check patient'sheight/weight. Estimated Glomerular Filt Rate >60 [facility] Comment:Chronic Kidney Disea se: Estimated GFR < 60 mL/min/1.82r4Tdzwjr Kidney Disease: Estimated GFR < 15 mL/min/1.73m2 Glucose 100 60 - 115 mg/dL [facility] Calcium 8.8 8.4 - 10.2 mg/dL [facility] 05/25/2024 11:5 9 PM EST 05/26/2024 12:02 AM EST Generic External Data Provider LAB BLOOD ORDERAB LES Final Result Performing Organization Address [facility] de Phone Number [facility] [address] [place] [phone] * POCT Rapid Influenza B BOYER ID NOW (05/25/2024 9:52 AM EST) Influenza B Negative Negative, Indeterminate [facility] QC Media Lot # [id number] [facility] Lot# Expiration Date [facility] Swab 05/25/2024 9:52 AM EST Ignacio Rivera MD POINT OF CARE TEST ENTER/EDIT OR DERABLES Final Result Performing Organization Address [facility] de Phone Number [facility] [address] [place] [phone] * POCT Rapid Influenza A BOYER ID NOW (05/25/2024 9:51 AM EST) Influenza A Negative Negative, Indeterminate [facility] QC Media Lot # [id number] [facility] Lot# Expiration Date [facility] Swab 05/25/2024 9:51 AM EST us Ignacio Rivera MD POINT OF CARE TEST ENTER/EDIT OR DERABLES Final Result Performing Organization Address [facility] Co de Phone Number [facility] [address] [place] [phone] * POCT Rapid Covid-19 BinaxNOW (05/25/2024 9:51 AM EST) Rapid COVID Ag Negative QC Media Lot # [id number] Lot# Expiration Date 026 Swab 05/25/2024 9:51 AM EST us Ignacio Rivera MD POINT OF CARE TEST ENTER/EDIT OR DERABLES Final Result * VITAMIN D 25-OH (D2 AND D3) (05/17/2024 9:40 AM EST) Vitamin D, 25-OH, D2 <4 ng/mL [facility] Comment:This test was develo ped and its analytical performancecharacteristics have been determined by [employer] [place], [place]. It hasnot been cleared or approved by the U.S. Food and DrugAdministration. This assay has been validated pursuantto the CLIA regulations and is used for clinicalpurposes.THIS TEST WAS PERFORMED AT:[employer] [id number] [place] [id number] MADRID MD,PHD Vitamin D, 25-OH, D3 31 ng/mL [facility] Comment:This test was develo ped and its analytical performancecharacteristics have been determined by [place]. It hasnot been cleared or approved by the U.S. Food and DrugAdministration. This assay has been validated pursuantto the CLIA regulations and is used for clinicalpurposes. Vitamin D, 25-OH, Total 31 30 - 100 ng/mL [facility] Comment:Vitamin D, 25-Hydrox y reports concentrations [...] = 30 ng/mL.For additional information, please refer tohttp://education.Mail'Inside/faq/BWF214(This link is being provided for informational/educational purposes only.) 05/17/2024 9:40 AM EST 05/17/2024 9:40 AM EST us Generic External Data Provider LAB BLOOD ORDERAB LES Final Result Performing Organization Address City/[facility]/ZIP Co de Phone Number [facility] [address] [place] [phone] * Vitamin B12 (Cobalamin) and Folate Panel, Serum (05/17/2024 9:40 AM EST) Pathologist [facility] Vitamin B12 474 200 - 900 pg/mL [facility] Comment:NORMAL 200-900 PG/ML INDETERMINATE 160-199 PG/ML DEFICIENT < 160 PG/ML Folate 15.2 > or = 4.0 ng/mL [facility] Comment:Reference Values:> o r = 4.0 ng/mL< 4.0 ng/mL suggests folate deficiency Methotrexate, aminopterin and folinic acid(leucovorin) are chemotherapeutic agents whose molecularstructures are similar to folate; therefore, the Architectfolate assay cannot be used for patients using these drugs. 05/17/2024 9:40 AM EST 05/17/2024 9:40 AM EST Generic External Data Provider LAB BLOOD ORDERAB LES Final Result Performing Organization Address [facility] Co de Phone Number [facility] [address] [place] [phone] * TSH with Reflex to Free T4 (05/17/2024 9:40 AM EST) Pathologist [facility] TSH reflex Free T4 1.12 0.32 - 4.0 uIU/mL [facility] 05/17/2024 9:40 AM EST 05/17/2024 9:40 AM EST Generic External Data Provider LAB BLOOD ORDERAB LES Final Result Performing Organization Address [facility] Co de Phone Number [facility] [address] [place] [address] [phone] * Hepatitis Panel, General (05/17/2024 9:40 AM EST) Pathologist [facility] Hepatitis A IgM Nonreactive Nonreactive [facility] Comment:IgM antibodies to AMAYA V not detected; does not exclude earlyacute or recovered HAV infection. ~Hepatitis B Surface Antibody REACTIVE Nonreactive [facility] Comment:REACTIVE: > 11.99 mI U/mL Hepatitis B Core Antibody Nonreactive Nonreactive [facility] Hepatitis C Antibody Nonreactive Nonreactive [facility] Comment:Antibodies to HCV no t detected; does not exclude early acuteHCV infection. Hepatitis B Surface Ag Negative Negative [facility] 05/17/2024 9:40 AM EST 05/17/2024 9:40 AM EST us Generic External Data Provider LAB BLOOD ORDERAB LES Final Result Performing Organization Address [facility] Co de Phone Number [facility] [address] [place] [address] [phone] * HIV-1/2 Antigen and Antibodies, Fourth Generation, with Reflexes (05/17/2024 9:40 AM EST) Pathologist [facility] HIV AB/AG Nonreactive Nonreactive [facility] Comment:HIV-1 p24 Ag and/or HIV-1/HIV-2 Ab not detected.A test result that is nonreactive does not exclude thepossibility of exposure to or infection with HIV-1 and/orHIV-2. Nonreactive results in this assay for individualswith prior exposure to HIV-1 and/or HIV-2 may be due toantigen and antibody levels that are below the limit ofdetection of this assay.The [employer] HIV Ag/Ab Combo assay result andsupplemental assay results should be interpreted inconjunction with the patient's clinical presentation,history and other laboratory results. If the results areinconsistent with clinical evidence, additional testing issuggested to confirm the result. 05/17/2024 9:40 AM EST 05/17/2024 9:40 AM EST us Generic External Data Provider LAB BLOOD ORDERAB LES Final Result Performing Organization Address City/[facility]/ZIP Co de Phone Number [facility] [address] [place] [address] [phone] * XR Ankle 3+ Views Right (04/09/2024 12:22 PM EST) Anatomical Region Laterality Modality Lower Extremities, Ankle Right Radiogr aphic Imaging 04/09/2024 12:2 2 PM EST Narrative 04/09/2024 12:45 PM EST ?[facility] ?[address] ?[place] [address] ?XRay Report ? Signed ? Patient: Kera Armstrong ?MR#: [id number] ?? [id number] ? : 1980 ?Acct:[id number] ? Age/Sex: 43 / F ?ADM Date: 04/09/24 ? Loc: HO.HHCX ? Attending Dr: Jessi Dueñas MD ? Ordering Physician: Jessi Dueñas ?? Date of Service: 04/09/24 ?? Procedure(s): XR ankle RT min 3V ?? Accession Number(s): [id number] ? cc: Jessi Dueñas ? EXAMINATION: ?? [...] DD/ 1222 ? TD/TT: 04/09/24 1231 ? Primer Expeditor And Drier: MSM ? Procedure Note Cy, Image - 04/09/[address] [address] XRay Report Signed Patient: Kera ArmstrongMR#: [id number] : 1980Acct:[id number] Age/Sex: 43 / FADM Date: 04/09/24 Loc: HO.HHCX Attending Dr: Jessi Dueñas MD Ordering Physician: Jessi Dueñas Date of Service: 04/09/24 Procedure(s): XR ankle RT min 3V Accession Number(s): [id number] cc: Jessi Dueñas EXAMINATION: XR ANKLE, RIGHT [...] by: Merritt Elizalde MD 04/09/2024 12:42 PM [facility] Dictated By: Merritt Elizalde MD Signed By: <Electronically signed by Merritt Elizalde MD in OV> 04/09/24 1242 DD/ 1222 TD/TT: 04/09/24 1231 Primer Expeditor And Drier: ALTON us Jessi Dueñas MD IMG XR PROCEDURES Edited Resul t - Final * BI Mammogram Screening Tomosynthesis Bilateral (09/28/2023 12:08 PM EDT) Anatomical Region Laterality Modality Breast Bilateral Mammography 09/28/2023 12:0 8 PM EDT Narrative 10/27/2023 9:20 AM EDT ? [facility] ? [address] ?[place] [address] ? Mammography Report ? Signed ? Patient: Kera Armstrong ?MR#: [id number] ?? [id number] ? : 1980 ?Acct:[id number] ? Age/Sex: 42 / F ?ADM Date: 06/27/24 ? Loc: HO.MAMMO ? Attending Dr: Jessi Dueñas MD ? Ordering Physician: Anita Arriaga MD ?Re ?? sults: 1Negative ? Date of Service: 09/28/23 ?Follow Up: 1 Year From Orig ?? inal Mammogram ? Procedure(s): MM tomosynthesis screening BI ?? Accession Number(s): [id number] ? cc: Jessi Dueñas; Anita Arriaga MD [...] 0916 ? DD/ 1208 ? TD/TT: ? Primer Expeditor And Drier: ? Procedure Note Donotuseinterpreter, Image - 10/27/2023 [facility] [address] [place] [address] Mammography Report Signed Patient: Kera ArmstrongMR#: [id number] : 1980Acct:[id number] Age/Sex: 42 / FADM Date: 09/28/23 Loc: PINA Attending Dr: Jessi Dueñas MD Ordering Physician: Anita Arriaga sults: 1Negative Date of Service: 09/28/23Follow Up: 1 Year From Orig inal Mammogram Procedure(s): MM tomosynthesis screening BI Accession Number(s): [id number] cc: Jessi Dueñas; Anita Arriaga MD EXAMINATION: [...] in OV> 10/27/23 0916 DD/ 1208 TD/TT: Primer Expeditor And Drier: Anita Roca MD IMG BI PROCEDURES Final [...] was manually screened according to routine procedures. Radiator Mechanic : SEE COMMENT [facility] Comment: KN, CT(ASCP) CT screening location: [address] ??[address] Interpretation/R esult: Negative for intraepithelial lesion or [...] Dueñas MD LAB PATHOLOGY ORDERABLES Final Result [facility] [address] * HPV mRNA E6/E7 REFLEX TO HPV 16, 18/45 (02/22/2021 12:00 AM EST) HPV nRNA E6/E7 Not Detected Not Detected [facility] Comment: Methodology: Manufacturing Systems Engineer-Mediated Amplification This assay detects E6/E7 viral messenger RNA (mRNA) from 14 high-risk HPV types (16,18,31,33,35,39,45,51,52,56,58,59,66,68). ? The analytical performance characteristics of this assay have been determined by [employer]. The modifications have not been cleared or approved by the FDA. This assay has been validated pursuant to the CLIA regulations and is used for clinical purposes. ?? For additional information, please refer to http://education.[employer]faq/FBE830i0 (This link if provided for information/ educational purposes only.) 02/22/2021 us Jessi Dueñas MD LAB CYTOLOGY ORDERABLES Final Result [facility] [address] from Last 3 Months or Most Recently Relevant to Health Maintenance Insurance [facility] C3 HSN PARTIAL Care Teams Absorption Plant Operator Relationship Specialty Start Date End Date Jessi Dueñas MD [address] [place] [address] PCP - General Family Medicine 11/24/20 Mikayla Bhagat Tow PickerPig Machine Supervisor 05/09/23
--- OUTSIDE RECORDS SUMMARY | 2024-07-04 09:21 | XMS_ITS | Encounter Summary ---
Author Organization [facility] Address [address] [facility] 7t [place] [address] Care Team Providers Care Finished Goods Inspector Name Role Phone Jessi Dueñas MD Primary Care Provider [phone] Reason for Visit * Reason Comments Med Refill Encounter Details Date Type Department Care Team ([facility] st Contact Info) Description 11/23/2023 Refill [facility] [address] [place], [place] [phone] Jessi Dueñas MD 230 [place] [address] Social History Tobacco Use Types Packs/Day Years [...] Description 07/26/2024 9:45 AM EDT Office Visit [facility] [address] [place] [address] Jessi Dueñas MD [address] [place] [address] documented as of this encounter Visit Diagnoses Not on filedocumented in this encounter Additional Health Concerns Assessment Noted Time PHQ-9 Depression Total Score: 8 09/19/19 24 11:07 AM EDT documented as of this encounter Care Teams Finished Goods Inspector Relationship Specialty Start Date End Date Jessi Dueñas MD [address] [place] [address] PCP - General Family Medicine 11/24/20 Mikayla Bhagat Shoe Stock AssociateLaborer Beam House 05/09/23 documented as of this encounter
--- OUTSIDE RECORDS SUMMARY | 2024-07-04 09:21 | XMS_ITS | Encounter Summary ---
Author Organization [facility] [facility] Address 75 [facility] 7t [place] [address] Care Team Providers Care Workers Compensation Claims Analyst Name Role Phone Jessi Dueñas MD Primary Care Provider [phone] Reason for Visit * Reason Onset Date Comments Call Back Request 01/23/2024 Encounter Details Date Type Department Care Team ([facility] Contact Info) Description 01/23/[address] [facility] [address] [place], [place] [phone] Jessi Dueñas MD [address] [place], [place] [phone] Call Back Request Social History Tobacco Use [...] no scripts sent. Please contact pt at [phone]. (Mauritanian Speaker) documented in this encounter Plan of Treatment Upcoming Encounters Date Type Department Care Team (Late st Contact Info) Description 07/26/2024 9:45 AM EDT Office Visit [facility] [address] [place] [address] Jessi Dueñas MD [address] [place] [address] documented as of this encounter Visit Diagnoses Not on filedocumented in this encounter Additional Health Concerns Assessment Noted Time PHQ-9 Depression Total Score: 8 09/19/19 24 11:07 AM EDT documented as of this encounter Care Teams Workers Compensation Claims Analyst Relationship Specialty Start Date End Date Jessi Dueñas MD [address] [place] [address] PCP - General Family Medicine 11/24/20 Mikayla Bhagat Tip BanderCivil Lawyer 05/09/23 documented as of this encounter
--- OUTSIDE RECORDS SUMMARY | 2024-07-04 09:21 | XMS_ITS | Encounter Summary ---
Author Organization [employer] Address 75 [facility] 7 [place] [address] Care Team Providers Care Bottle Capper Name Role Phone Jessi Dueñas MD Primary Care Provider [phone] Reason for Visit * Reason Onset Date [...] Encounter Details Date Type Department Care Team ([facility] st Contact Info) Description 06/03/2024 Refill [facility] 230 [place], [place] [phone] Jessi Dueñas MD 230 [place], [place] [phone] Fibromyalgia Social History Tobacco Use Types Packs/Day [...] Upcoming Encounters Date Type Department Care Team ([facility] st Contact Info) Description 07/26/2024 9:45 AM EDT Office Visit [facility] [address] [place] [address] Jessi Dueñas MD [address] [place] [address] documented as of this encounter Visit Diagnoses Diagnosis Fibromyalgia Unspecified myalgia and myositis documented in this encounter Additional Health Concerns Assessment Noted Time PHQ-9 Depression Total Score: 8 09/19/19 24 11:07 AM EDT documented as of this encounter Care Teams Bottle Capper Relationship Specialty Start Date End Date Jessi Dueñas MD [address] [place] [address] PCP - General Family Medicine 11/24/20 Mikayla Bhagat Director WorkSafety Leader 05/09/23 documented as of this encounter
--- OUTSIDE RECORDS SUMMARY | 2024-07-04 09:21 | XMS_ITS | Encounter Summary ---
Author Organization [facility] Address [address] [facility] 7t [place] [address] Care Team Providers Care Hydro Plant Technician Name Role Phone Jessi Dueñas MD Primary Care Provider [phone] Encounter Details Date Type Department Care Team (Late st Contact Info) Description 10/12/2022 Orders Only [facility] MEDICINE [address] [place] [phone] Jessi Dueñas MD [address] [place] [address] [phone] Acute bilateral low back pain, unspecified whether [...] Office Visit [facility]INE [address] [place] [address] [phone] Jessi Dueñas MD 230 [place] [address] documented as of this encounter Visit Diagnoses Diagnosis Acute bilateral low back pain, unspecified whether sciatica present- Primary Hematoma of left knee region Sprain of left medial ankle joint, subsequent encounter documented in this encounter Additional Health Concerns Assessment Noted Time PHQ-9 Depression Total Score: 19 023 2:59 PM EST documented as of this encounter Care Teams Hydro Plant Technician Relationship Specialty Start Date End Date Jessi Dueñas MD [address] [place] [address] PCP - General Family Medicine 11/24/20 Mikayla Bhagat Supervisor Extruding DepartmentStation Baggage Porter 05/09/23 documented as of this encounter
--- OUTSIDE RECORDS SUMMARY | 2024-07-04 09:21 | XMS_ITS | Encounter Summary ---
Author Organization [employer] Address 75 [facility] 7t [place] [address] Care Team Providers Care Encoding Machine Operator Name Role Phone Jessi Dueñas MD Primary Care Provider [phone] Encounter Details Date Type Department Care Team ([facility] st Contact Info) Description 06/14/2024 Orders Only [facility] MED[facility]INE [address] [place], [place] [phone] Jessi Dueñas MD 230 [place], [place] [phone] Restless leg syndrome Social History Tobacco Use [...] Description 07/26/2024 9:45 AM EDT Office Visit [facility] [address] [place] [address] Jessi Dueñas MD 230 [place] [address] documented as of this encounter Visit Diagnoses Diagnosis Restless leg syndrome Restless legs syndrome (RLS) documented in this encounter Additional Health Concerns Assessment Noted Time PHQ-9 Depression Total Score: 8 09/19/19 24 11:07 AM EDT documented as of this encounter Care Teams Encoding Machine Operator Relationship Specialty Start Date End Date Jessi Dueñsa MD [address] [place] [address] PCP - General Family Medicine 11/24/20 Mikayla Bhagat Janitor CleanerFurnace Helper 05/09/23 documented as of this encounter
--- OUTSIDE RECORDS SUMMARY | 2024-07-04 09:21 | XMS_ITS | Encounter Summary ---
Author Organization [employer] [facility] Address 75 [facility] 7 [place] [address] Care Team Providers Care Voip Technician Name Role Phone Jessi Dueñas MD Primary Care Provider [phone] Reason for Visit * Reason Onset Date Comments Referral 12/23/2022 Encounter Details Date Type Department Care Team ([facility] st Contact Info) Description 12/23/2022 Telephone [facility] [address] [place] [phone] Jessi Dueñas MD 230 [place] [address] Referral Social History Tobacco Use Types Packs/Day [...] have interpreters. Any questions, contact pt at [phone] (Sinhala) documented in this encounter Plan of Treatment Upcoming Encounters Date Type Department Care Team (Late st Contact Info) Description 07/26/2024 9:45 AM EDT Office Visit [facility] [address] [place] [address] Jessi Dueñas MD 230 [place], [place] [phone] documented as of this encounter Visit Diagnoses Not on filedocumented in this encounter Additional Health Concerns Assessment Noted Time PHQ-9 Depression Total Score: 19 023 2:59 PM EST documented as of this encounter Care Teams Voip Technician Relationship Specialty Start Date End Date Jessi Dueñas MD 230 [place], [place] [phone] PCP - General Family Medicine 11/24/20 Mikayla Bhagat Screen Repairer CrusherCritical Systems Technician 05/09/23 documented as of this encounter
--- OUTSIDE RECORDS SUMMARY | 2024-07-04 09:21 | XMS_ITS | Encounter Summary ---
Author Organization [employer] Address [address] [facility] 7 [place] [address] Care Team Providers Care Banquet Attendant Name Role Phone Jessi Dueñas MD Primary Care Provider [phone] Reason for Visit * Reason Onset Date Comments Med Refill 07/02/2024 Encounter Details Date Type Department Care Team ([facility] st Contact Info) Description 07/02/2024 Refill [facility] MEDICINE 230 [place] [address] Jessi Dueñas MD 230 [place], [place] [phone] Fibromyalgia Social History Tobacco Use Types Packs/Day [...] 50 MG tablet To be sent to: [facility] - [place], [place] - [address] [facility] documented in this encounter Plan of Treatment Upcoming Encounters Date Type Department Care Team (Late st Contact Info) Description 07/26/2024 9:45 AM EDT Office Visit [facility] MEDICINE 230 [place] [address] Jessi Dueñas MD [address] [place] [address] documented as of this encounter Visit Diagnoses Diagnosis Fibromyalgia Unspecified myalgia and myositis documented in this encounter Additional Health Concerns Assessment Noted Time PHQ-9 Depression Total Score: 8 09/19/19 24 11:07 AM EDT documented as of this encounter Care Teams Banquet Attendant Relationship Specialty Start Date End Date Jessi Dueñas MD 230 [place] [address] PCP - General Family Medicine 11/24/20 Mikayla Bhagat Building Construction ProfessorCompensation Adjuster 05/09/23 documented as of this encounter
--- OUTSIDE RECORDS SUMMARY | 2024-07-04 09:21 | XMS_ITS | Encounter Summary ---
Author Organization [employer] Address [address] [facility] 7t [place] [address] Care Team Providers Care Principal Planner Name Role Phone Jessi Dueñas MD Primary Care Provider [phone] Encounter Details Date Type Department Care Team ([facility] st Contact Info) Description 09/22/2023 Orders Only [facility] MEDICINE 230 [place], [place] [phone] Jessi Dueñas MD 230 [place], [place] [phone] Social History Tobacco Use Types Packs/Day Years [...] Description 07/26/2024 9:45 AM EDT Office Visit [facility] [address] [place] [address] Jessi Dueñas MD [address] [place] [address] documented as of this encounter Visit Diagnoses Not on filedocumented in this encounter Additional Health Concerns Assessment Noted Time PHQ-9 Depression Total Score: 8 09/19/19 24 11:07 AM EDT documented as of this encounter Care Teams Principal Planner Relationship Specialty Start Date End Date Jessi Dueñas MD [address] [place] [address] PCP - General Family Medicine 11/24/20 Mikayla Bhagat Coal Tram DriverInstrumentation Designer 05/09/23 documented as of this encounter
--- OUTSIDE RECORDS SUMMARY | 2024-07-04 09:21 | XMS_ITS | Encounter Summary ---
Author Organization [employer] Address 75 [facility] 7t [place] [address] Care Team Providers Care Hop Trainer Name Role Phone Jessi Dueñas MD Primary Care Provider [phone] Reason for Referral * Consultation (Routine) - Closed Specialty Diagnoses / Procedures Referred By Contac t Referred To Contact Physical Therapy Diagnoses Acute bilateral low back pain without sciatica Chronic pain of both knees Bilateral hand pain Jessi Dueñas MD 230 [place] [address] Phone: tel: fax: [facility] [address] [facility] [address] [place], [place] Phone: tel: fax: Referral ID Status Reason Start Date Expiration Date V isits Requested Visits Authorized [id number] Closed Specialty Services Required 04/17/2024 04/17/2025 20 20 Encounter Details Date Type Department Care Team (Late st Contact Info) Description 04/17/2024 Orders Only [facility] MEDICINE [address] [place] [address] [phone] Jessi Dueñas MD [address] [place], [place] [phone] Acute bilateral low back pain without sciatica [...] Visit [facility] MED[facility]INE [address] [place] [address] Jessi Dueñas MD [address] [place] [address] Scheduled Referrals Name Type Priority Associated Diagnoses [...] documented as of this encounter Care Teams Hop Trainer Relationship Specialty Start Date End Date Jessi Dueñas MD [address] [place] [address] PCP - General Family Medicine 11/24/20 Mikayla Bhagat Toll Line InspectorSteel Buffer 05/09/23 documented as of this encounter
--- OUTSIDE RECORDS SUMMARY | 2024-07-04 09:21 | XMS_ITS | Encounter Summary ---
Author Organization [employer] [facility] Address 75 [facility] 7 [place] [address] Care Team Providers Care Erisa Attorney Name Role Phone Jessi Dueñas MD Primary Care Provider [phone] Reason for Visit * Reason Onset Date Comments Med Refill Tramadol refill denied 10/25/2023 Encounter Details Date Type Department Care Team (Late st Contact Info) Description 10/25/2023 Refill [facility] MEDICINE 230 [place] [address] Jessi Dueñas MD [address] [place] [address] Fibromyalgia Social History Tobacco Use Types Packs/Day [...] call her, when I get back from [place] and we can review this. Thank you! TC via P/I#[id number], unable to connect to the number, unable to leave message. Will forward message to PCP's M.A. to schedule a telephone appointment for patient as PCP requested. documented in this encounter Plan of Treatment Upcoming Encounters Date Type Department Care Team (Late st Contact Info) Description 07/26/2024 9:45 AM EDT Office Visit [facility] MEDICINE 230 [place], [place] [phone] Jessi Dueñas MD [address] [place] [address] documented as of this encounter Visit Diagnoses Diagnosis Fibromyalgia Unspecified myalgia and myositis documented in this encounter Additional Health Concerns Assessment Noted Time PHQ-9 Depression Total Score: 8 09/19/19 24 11:07 AM EDT documented as of this encounter Care Teams Erisa Attorney Relationship Specialty Start Date End Date Jessi Dueñas MD [address] [place] [address] PCP - General Family Medicine 11/24/20 Mikayla Bhagat Expert Medical WriterIndustrial Millwright 05/09/23 documented as of this encounter
--- OUTSIDE RECORDS SUMMARY | 2024-07-04 09:21 | XMS_ITS | Encounter Summary ---
Author Organization [facility] [facility] Address [address] [facility] 7t [place] [address] Care Team Providers Care Farm Supervisor Name Role Phone Jessi Dueñas MD Primary Care Provider [phone] Encounter Details Date Type Department Care Team (Late Contact Info) Description 03/29/2022 Orders Only [facility] MEDICINE [address] [place] [address] Jessi Dueñas MD [address] [place] [address] [phone] Choking episode occurring at night (Primary Dx) [...] EDT Office Visit [facility] MED[facility]INE [address] [place] [address] [phone] Jessi Dueñas MD [address] [place] [address] documented as of this encounter Visit Diagnoses Diagnosis Choking episode occurring at night- Primary documented in this encounter Care Teams Farm Supervisor Relationship Specialty Start Date End Date Jessi Dueñas MD [address] [place], [place] [phone] PCP - General Family Medicine 11/24/20 Mikayla Bhagat Tab Card Press OperatorLanguage Interpreter 05/09/23 documented as of this encounter
--- OUTSIDE RECORDS SUMMARY | 2024-07-04 09:21 | XMS_ITS | Encounter Summary ---
Author Organization [employer] Address [address] [facility] 7t [place] [address] Care Team Providers Care Business Ethics Professor Name Role Phone Jessi Dueñas MD Primary Care Provider [phone] Encounter Details Date Type Department Care Team ([facility] st Contact Info) Description 02/08/2023 Telephone [facility] MEDICINE 230 [place], [place] [phone] Jessi Dueñas MD 230 [place], [place] [phone] Social History Tobacco Use Types Packs/Day Years [...] EDT Office Visit [facility] MEDICINE [address] [place] [address] Jessi Dueñas MD 230 [place] [address] documented as of this encounter Visit Diagnoses Not on filedocumented in this encounter Additional Health Concerns Assessment Noted Time PHQ-9 Depression Total Score: 20 023 9:49 AM EDT documented as of this encounter Care Teams Business Ethics Professor Relationship Specialty Start Date End Date Jessi Dueñas MD 230 [place] [address] PCP - General Family Medicine 11/24/20 Mikayla Bhagat Sulphate TesterAqueduct And Reservoir Keeper 05/09/23 documented as of this encounter
--- OUTSIDE RECORDS SUMMARY | 2024-07-04 09:21 | XMS_ITS | Encounter Summary ---
Author Organization [employer] [facility] Address [address] [facility] 7 [place] [address] Care Team Providers Care Book Or Script Editor Name Role Phone Jessi Dueñas MD Primary Care Provider [phone] Reason for Visit * Reason Onset Date Comments Results 05/23/2023 Encounter Details Date Type Department Care Team ([facility] st Contact Info) Description 05/23/[address] [facility] [address] [place] [address] Jessi Dueñas MD [address] [place] [address] Results Social History Tobacco Use Types Packs/Day [...] T/C to pt. For below message through [employer] [facility] Lab id - [id number], pt. Informed regarding normal x-ray result. pt. [...] case of any new or worsening symptoms. [facility] hours are reviewed. Pt. Verbally agreed and understood. * Telephone Encounter - Paco Sylvester - 05/24/2023 3:59 PM EST Tc from pt returning call. Please contact at [phone] * Telephone Encounter - Yumiko Whitaker RN - 05/24/2023 12:47 PM EST Return T/C to pt. For bellow message Normal x-ray result. No answer. LVM to call back on [phone]. * Telephone Encounter - Bran Parker - 05/23/2023 4:41 PM EST TC from pt requesting call back regarding Results. Type of results: X-Ray Date when done: 05/16/23 Facility: [facility] documented in this encounter Plan of Treatment Upcoming Encounters Date Type Department Care Team (Late st Contact Info) Description 07/26/2024 9:45 AM EDT Office Visit [facility] [address] [place], [place] [phone] Jessi Dueñas MD [address] [place], [place] [phone] documented as of this encounter Visit Diagnoses Not on filedocumented in this encounter Additional Health Concerns Assessment Noted Time PHQ-9 Depression Total Score: 20 023 9:49 AM EDT documented as of this encounter Care Teams Book Or Script Editor Relationship Specialty Start Date End Date Jessi Dueñas MD [address] [place] [address] PCP - General Family Medicine 11/24/20 Mikayla Bhagat Vending AttendantPrinting Equipment Mechanic Apprentice 05/09/23 documented as of this encounter
--- OUTSIDE RECORDS SUMMARY | 2024-07-04 09:21 | XMS_ITS | Encounter Summary ---
Author Organization [employer] Address [address] [facility] 7 [place] [address] Care Team Providers Care Roaster Operator Name Role Phone Jessi Dueñas MD Primary Care Provider [phone] Reason for Visit * Reason Onset Date Comments DME from [employer] 06/27/2024 Encounter Details Date Type Department Care Team ([facility] st Contact Info) Description 06/27/2024 Telephone [facility] [address] [place] [address] Jessi Dueñas MD [address] [place], [place] [phone] DME from [employer] Social History Tobacco Use Types Packs/Day Years [...] Description 07/26/2024 9:45 AM EDT Office Visit [facility] [address] [place] [address] Jessi Dueñas MD [address] [place] [address] documented as of this encounter Visit Diagnoses Not on filedocumented in this encounter Additional Health Concerns Assessment Noted Time PHQ-9 Depression Total Score: 8 09/19/19 24 11:07 AM EDT documented as of this encounter Care Teams Roaster Operator Relationship Specialty Start Date End Date Jessi Dueñas MD [address] [place] [address] PCP - General Family Medicine 11/24/20 Mikayla Bhagat Hurricane TrackerTourist Adviser 05/09/23 documented as of this encounter
--- OUTSIDE RECORDS SUMMARY | 2024-07-04 09:21 | XMS_ITS | Encounter Summary ---
Author Organization [employer] Address [address] [facility] 7t [place] [address] Care Team Providers Care Board Hammer Operator Name Role Phone Jessi Dueñas MD Primary Care Provider [phone] Encounter Details Date Type Department Care Team ([facility] st Contact Info) Description 01/11/2023 Orders Only [facility] MEDICINE [address] [place], [place] [phone] Jessi Dueñas MD [address] [place], [place] [phone] Chronic pain of both knees (Primary Dx) [...] Office Visit [facility] MED[facility]INE [address] [place] [address] Jessi Dueñas MD [address] [place] [address] documented as of this encounter Visit Diagnoses Diagnosis Chronic pain of both knees- Primary documented in this encounter Additional Health Concerns Assessment Noted Time PHQ-9 Depression Total Score: 20 023 9:49 AM EDT documented as of this encounter Care Teams Board Hammer Operator Relationship Specialty Start Date End Date Jessi Dueñas MD [address] [place] [address] PCP - General Family Medicine 11/24/20 Mikayla Bhagat Queen ProducerDirector Of Marketing Operations 05/09/23 documented as of this encounter
--- OUTSIDE RECORDS SUMMARY | 2024-07-04 09:21 | XMS_ITS | Encounter Summary ---
Author Organization [employer] Address [address] [facility] 7t [place] [address] Care Team Providers Care Respiratory Director Name Role Phone Jessi Dueñas MD Primary Care Provider [phone] Reason for Visit * Reason Onset Date Comments Nurse Triage 02/07/2023 Encounter Details Date Type Department Care Team ([facility] st Contact Info) Description 02/07/2023 Telephone [facility] [address] [place] [address] Jessi Dueñas MD [address] [place] [address] Nurse Triage Social History Tobacco Use Types [...] 02/07/2023 11:26 AM EST Triage call with [employer] Application Trainer ID [id number] Pt reports ED visit @ [facility] 02/06/23 for abdominal pain and migraines. Report is requested from [facility] clinical home care consultant. Pt reports was supposed to be getting [...] lower back pain states she went to [facility] last on 02/06 and did nothing. Patient speaks english documented in this encounter Plan of Treatment Upcoming Encounters Date Type Department Care Team (Late st Contact Info) Description 07/26/2024 9:45 AM EDT Office Visit [facility] [address] [place] [address] Jessi Dueñas MD [address] [place] [address] documented as of this encounter Visit Diagnoses Not on filedocumented in this encounter Additional Health Concerns Assessment Noted Time PHQ-9 Depression Total Score: 20 023 9:49 AM EDT documented as of this encounter Care Teams Respiratory Director Relationship Specialty Start Date End Date Jessi Dueñas MD [address] [place] [address] PCP - General Family Medicine 11/24/20 Mikayla Bhagat Cash Applications RepresentativeApplication Development Director 05/09/23 documented as of this encounter
--- OUTSIDE RECORDS SUMMARY | 2024-07-04 09:21 | XMS_ITS | Encounter Summary ---
Author Organization [employer] Address [address] 7t [place] [address] Care Team Providers Care Multi Share Program Coordinator Name Role Phone Jessi Dueñas MD Primary Care Provider [phone] Encounter Details Date Type Department Care Team (Late st Contact Info) Description 07/02/2024 Orders Only [facility] External Provider, [facility] Social History Tobacco Use Types Packs/Day [...] t he electric, gas, oil or water Fed[employer] threatened to shut off services in your [...] Visit [facility] MED[facility]INE [address] [place] [address] Jessi Dueñas MD [address] [place] [address] documented as of this encounter Procedures Procedure Name Priority Date/Time Associated Diagnosis Comments US PELVIS TRANSVAGINAL Routine 07/02/2024 1:10 PM EDT documented in this encounter Results * US Pelvis Transvaginal (07/02/2024 1:10 PM EDT) Anatomical Region Laterality Modality Pelvis Ultrasound 07/02/2024 1:10 PM EDT Narrative 07/03/2024 7:10 AM EDT ? [facility] ?[address] [facility] ? [place] [address] ? Ultrasound Report ? Signed ? Patient: Lc Nicole,Kera ?MR#: [id number] ?? [id number] ? : 1980 ?Acct:[id number] ? Age/Sex: 43 / F ?ADM Date: 04/01/25 ? Loc: HO.HMGCX ? Attending Dr: Lindsey Zuñiga CNM ? Ordering Physician: Lindsey Zuñiga CNM ?? Date of Service: 07/02/24 ?? Procedure(s): US pelvic and transvaginal ?? Accession Number(s): [id number] ? cc: Jessi Dueñas; Lindsey Zuñiga CNM [...] //25 1310 ? TD/TT: 07/02/24 1335 ? Sports Therapist: ? Procedure Note Donotuseinterpreter, Image - 07/03/2024 [facility] [address] [place] [address] [place] [address] Ultrasound Report Signed Patient: Teresa Armstrong#: [id number] : 1980Acct:[id number] Age/Sex: 43 / FADM Date: 07/02/24 Loc: HO.HMGCX Attending Dr: Lindsey Zuñiga CNM Ordering Physician: Lindsey Zuñiga CNM Date of Service: 07/02/24 Procedure(s): US pelvic and transvaginal Accession Number(s): [id number] cc: Jessi Dueñas; Lindsey Zuñiga CNM EXAMINATION: [...] Rich MD Signed By: <Electronically signed by Evertet Rich MD in OV> 07/03/24 0708 DD/ 1310 TD/TT: 07/02/24 1335 Sports Therapist: [facility] External Provider IMG US PROCEDURES Edited Result - Final documented in this encounter Visit Diagnoses Not on filedocumented in this encounter Additional Health Concerns Assessment Noted Time PHQ-9 Depression Total Score: 8 09/19/19 24 11:07 AM EDT documented as of this encounter Care Teams Multi Share Program Coordinator Relationship Specialty Start Date End Date Jessi Dueñas MD [address] [place] [address] PCP - General Family Medicine 11/24/20 Mikayla Bhagat Land ClearerCad Application Support Specialist 05/09/23 documented as of this encounter
--- OUTSIDE RECORDS SUMMARY | 2024-07-04 09:22 | XMS_ITS | Encounter Summary ---
Author Organization [employer] Address [address] [facility] 7 [place] [address] Care Team Providers Care Endoscopy Registered Nurse Name Role Phone Jessi Dueñas MD Primary Care Provider [phone] Reason for Visit * Reason Comments Med Refill Encounter Details Date Type Department Care Team ([facility] st Contact Info) Description 10/25/2023 Refill [facility] MED[facility]INE [address] [place] [address] Anita Arriaga MD [address] [place] [address] Social History Tobacco Use Types Packs/Day Years [...] Description 07/26/2024 9:45 AM EDT Office Visit [facility]INE [address] [place] [address] Jessi Dueñas MD [address] [place] [address] documented as of this encounter Visit Diagnoses Not on filedocumented in this encounter Additional Health Concerns Assessment Noted Time PHQ-9 Depression Total Score: 8 09/19/19 24 11:07 AM EDT documented as of this encounter Care Teams Endoscopy Registered Nurse Relationship Specialty Start Date End Date Jessi Dueñas MD [address] [place] [address] PCP - General Family Medicine 11/24/20 Mikayla Bhagat Product TesterLaundry Washer 05/09/23 documented as of this encounter
[2024-07-04 10:53] LABS: Hematocrit 35.9 % (37.0-47.0); Hemoglobin 12.1 g/dl (12.0-16.0); Mean Corpuscular HGB Conc 33.7 g/dl (31.0-35.0); Mean Corpuscular Hemoglobin 31.5 pg (27.0-33.0); Mean Corpuscular Volume 93.5 fL (80.0-98.0); Mean Platelet Volume 10.2 fL (9.4-12.3); Platelet Count 273 X10*3/uL (160-400); Red Blood Count 3.84 X10*6/uL (4.20-5.50); Red Cell Distribution Width 12.9 % (11.0-16.0); White Blood Count 7.5 X10*3/uL (4.8-10.8)
[2024-07-04 11:50] LABS: HCG Quantitative < 2 mIU/mL; TSH reflex Free T4 1.05 uIU/mL (0.32-4.0)
== END 2024-07-04 08:19 | disposition home or self-care (01) ==
LOC: HO.LNP 08:18
PROVIDERS: PCP General Practice; Visit Provider Obstetrics & Gynecology
DX: Z30.433 Encounter for removal and reinsertion of intrauterine contraceptive device (principal); N93.9 Abnormal uterine and vaginal bleeding, unspecified; R31.29 Other microscopic hematuria; R10.2 Pelvic and perineal pain; N83.299 Other ovarian cyst, unspecified side; Z32.02 Encounter for pregnancy test, result negative
CPT/HCPCS: 58100; 58300; 58301; 81002; 81025; 84443; 84702; 85027; 87086; 88305; 99212; J7298

== ENCOUNTER 2024-07-04 09:09 | Outpatient (REF) | payer MEDICAID, SELFPAY | END 2024-07-04 09:10 | disposition home or self-care (01) | LOC: HO.LAB 09:09 | PROVIDERS: PCP General Practice; Visit Provider Obstetrics & Gynecology | DX: N93.9 Abnormal uterine and vaginal bleeding, unspecified (principal) | CPT/HCPCS: 87086 ==

== ENCOUNTER 2024-07-23 13:45 | Outpatient (REF) | payer MEDICAID, SELFPAY ==
--- OUTSIDE RECORDS SUMMARY | 2024-07-23 17:43 | XMS_ITS | Encounter Summary ---
Author Organization [employer] Address [address] [facility] [address] 7[address] [place] [address] Care Team Providers Care Or Director Name Role Phone Jessi Dueñas MD Primary Care Provider Reason for Visit * Reason Onset Date Comments Results 05/23/2023 Encounter Details Date Type Department Care Team ([facility] st Contact Info) Description 05/23/2023 Telephone [facility] MEDICINE [address] [place] [address] Jessi Dueñas MD 230 [place] [address] Results Social History Tobacco Use Types Packs/Day [...] T/C to pt. For below message through [employer] id - [id number], pt. Informed regarding normal x-ray result. pt. [...] case of any new or worsening symptoms. [facility] hours are reviewed. Pt. Verbally agreed and understood. * Telephone Encounter - Paco Sylvester - 05/24/2023 3:59 PM EST Tc from pt returning call. Please contact at [phone] * Telephone Encounter - Yumiko Whitaker RN - 05/24/2023 12:47 PM EST Return T/C to pt. For bellow message Normal x-ray result. No answer. LVM to call back on [phone]. * Telephone Encounter - Bran Parker - 05/23/2023 4:41 PM EST TC from pt requesting call back regarding Results. Type of results: X-Ray Date when done: 05/16/23 Facility: [facility] documented in this encounter Plan of Treatment Upcoming Encounters Date Type Department Care Team (Late st Contact Info) Description 07/26/2024 9:45 AM EDT Office Visit [facility] MEDICINE [address] [place] [address] Jessi Dueñas MD 230 [place] [address] 09/02/2024 8:00 AM EDT Office Visit [facility] ADULT DENTAL [address] [place] [address] Fuentes Hurley DDS [address] [place] [address] documented as of this encounter Visit Diagnoses Not on filedocumented in this encounter Additional Health Concerns Assessment Noted Time PHQ-9 Depression Total Score: 20 023 9:49 AM EDT documented as of this encounter Care Teams Or Director Relationship Specialty Start Date End Date Jessi Dueñas MD [address] [place] [address] PCP - General Family Medicine 11/24/20 Mikayla Bhagat Ccu NursePowder And Primer Canning Leader 05/09/23 documented as of this encounter
--- OUTSIDE RECORDS SUMMARY | 2024-07-23 17:43 | XMS_ITS | Encounter Summary ---
Author Organization [employer] Address [address] [facility] [address] [place] [address] Care Team Providers Care Manager Online Name Role Phone Jessi Dueñas MD Primary Care Provider [phone] Reason for Referral * Consultation (Routine) - Closed Specialty Diagnoses / Procedures Referred By Contac t Referred To Contact Physical Therapy Diagnoses Acute bilateral low back pain without sciatica Chronic pain of both knees Bilateral hand pain Jessi Dueñas MD [address] [place] [address] Phone: tel: fax: [facility] [address] Phone: tel: fax: Referral ID Status Reason Start Date Expiration Date V isits Requested Visits Authorized [id number] Closed Specialty Services Required 04/17/2024 04/17/2025 20 20 Encounter Details Date Type Department Care Team (Late st Contact Info) Description 04/17/2024 Orders Only [facility] MEDICINE [address] [place] [address] Jessi Dueñas MD [address] [place], [place] Acute bilateral low back pain without [...] Office Visit [facility] MEDICINE [address] [place] [address] Jessi Dueñas MD [address] [place] [address] 09/02/2024 8:00 AM EDT Office Visit [facility] ADULT DENTAL [address] [place] [address] Fuentes Hurley DDS [address] [place] [address] Scheduled Referrals Name Type Priority Associated Diagnoses [...] as of this encounter Care Teams Manager Online Relationship Specialty Start Date End Date Jessi Dueñas MD [address] [place] [address] PCP - General Family Medicine 11/24/20 Mikayla Bhagat Drink Box MechanicSales And Service Technician 05/09/23 documented as of this encounter
--- OUTSIDE RECORDS SUMMARY | 2024-07-23 17:43 | XMS_ITS | Encounter Summary ---
Author Organization [employer] Address [address] [facility] [address] 7t [place] [address] Care Team Providers Care Certified Physical Therapist Assistant Name Role Phone Jessi Dueñas MD Primary Care Provider [phone] Reason for Visit * Reason Comments Dental Pain Right side upper and lower pain Encounter Details Date Type Department Care Team (Late st Contact Info) Description 07/18/2024 1:00 PM EDT Office Visit [facility] ADULT DENTAL [address] [place] [address] Wallace-LiebermanKenisha garza, DDS [address] [place] [address] Dental caries (Primary Dx) Social History Tobacco [...] provider: Kenisha Estevez DDS Billing provider: Kenisha Etsevez DDS [id number] - INTRAORAL - PERIAPICAL FIRST [...] Timeout Time: 1313 (Dental Emergency exam) Location: [facility] Tooth: #2 Procedure: Emergency Verified the above with patient, assistant refinery operator, and provider. Confirmed via patient's chart, intraorally and by radiographs. Access Clinician: not applicable Chief Complaint Patient presents with Dental Pain Right side upper and lower pain Medical Hx: Vitals: Blood pressure 110/78. Past Medical History: Diagnosis Date JUANITO positive Asthma Bipolar disorder ([facility]) Fibromyalgia Migraine Medications: Outpatient Encounter Medications as [...] 2 SPRAYS IN EACH NOSTRIL ONCE DAILY [id number] g 3 gabapentin (Neurontin) 300 MG capsule [...] Dismissed in good condition. NV: ext #2 Occasional Babysitter: RUBY Nelson Dentist: Kenisha Estevez DDS documented in this encounter Plan of Treatment Upcoming Encounters Date Type Department Care Team (Late st Contact Info) Description 07/26/2024 9:45 AM EDT Office Visit [facility] MEDICINE [address] [place] [address] Jessi Dueñas MD 230 [place] [address] 09/02/2024 8:00 AM EDT Office Visit [facility] ADULT DENTAL [address] [place] [address] Fuentes Hurley DDS [address] [place] [address] Scheduled Orders Name Type Priority Associated Diagnoses [...] documented as of this encounter Care Teams Certified Physical Therapist Assistant Relationship Specialty Start Date End Date Jessi Dueñas MD [address] [place] [address] PCP - General Family Medicine 11/24/20 Mikayla Bhagat Singer Back TenderCopy Manager 05/09/23 documented as of this encounter
--- OUTSIDE RECORDS SUMMARY | 2024-07-23 17:43 | XMS_ITS | Encounter Summary ---
Author Organization [employer] Address [address] [facility] [facility] [facility] [address] [place] [address] Care Team Providers Care Interface Engineer Name Role Phone Jessi Dueñas MD Primary Care Provider [phone] Encounter Details Date Type Department Care Team ([facility] st Contact Info) Description 05/18/2023 Telephone [facility] MEDICINE [address] [place] [address] Jessi Dueñas MD [address] [place] [address] Social History Tobacco Use Types Packs/Day Years Used Date Smoking Tobacco: Never Passive Smoke Exposure: Never Smokeless Tobacco: Never Alcohol Use Standard Drinks/Week Comments Never 0 (1 standard drink = 0.6 oz pur e alcohol) Depression Answer Date Recorded Patient Health Questionnaire-9 Score 20 01/04/2023 Housing Stability Answer Date Recorded What is your housing situation today? I have bola ojhn 05/09/[address] you li [...] Lopez RN - 05/18/2023 8:48 AM EST SENIOR TECHNICAL BUSINESS ANALYST referral made to [facility], referral form faxed with confirmation of receipt. documented in this encounter Plan of Treatment Upcoming Encounters Date Type Department Care Team (Late st Contact Info) Description 07/26/2024 9:45 AM EDT Office Visit [facility] MEDICINE [address] [place] [address] Jessi Dueñas MD [address] [place] [address] 09/02/2024 8:00 AM EDT Office Visit [facility] ADULT DENTAL [address] [place] [address] Fuentes Hurley DDS [address] [place] [address] documented as of this encounter Visit Diagnoses Not on filedocumented in this encounter Additional Health Concerns Assessment Noted Time PHQ-9 Depression Total Score: 20 023 9:49 AM EDT documented as of this encounter Care Teams Interface Engineer Relationship Specialty Start Date End Date Jessi Dueñas MD [address] [place] [address] PCP - General Family Medicine 11/24/20 Mikayla Bhagat Network Operations AnalystSatellite Project Site Monitor 05/09/23 documented as of this encounter
--- OUTSIDE RECORDS SUMMARY | 2024-07-23 17:43 | XMS_ITS | Encounter Summary ---
Author Organization [employer] Address [address] [facility] [address] [place] [address] Care Team Providers Care Managing Director Name Role Phone Jessi Dueñas MD Primary Care Provider [phone] Reason for Visit * Reason Onset Date [...] (Late st Contact Info) Description 06/03/2024 Refill [facility] MEDICINE [address] [place], [place] [phone] Jessi Dueñas MD 230 [place], [place] [phone] Fibromyalgia Social History Tobacco Use Types Packs/Day [...] Description 07/26/2024 9:45 AM EDT Office Visit [facility] MEDICINE [address] [place] [address] Jessi Dueñas MD 230 [place] [address] 09/02/2024 8:00 AM EDT Office Visit [facility] ADULT DENTAL [address] [place] [address] Fuentes Hurley DDS [address] [place] [address] documented as of this encounter Visit Diagnoses Diagnosis Fibromyalgia Unspecified myalgia and myositis documented in this encounter Additional Health Concerns Assessment Noted Time PHQ-9 Depression Total Score: 8 09/19/19 24 11:07 AM EDT documented as of this encounter Care Teams Managing Director Relationship Specialty Start Date End Date Jessi Dueñas MD [address] [place] [address] PCP - General Family Medicine 11/24/20 Mikayla Bhagat OvercoilerPicker / Packer 05/09/23 documented as of this encounter
--- OUTSIDE RECORDS SUMMARY | 2024-07-23 17:44 | XMS_ITS | Encounter Summary ---
Author Organization [employer] Address [address] [facility] [address] [place] [address] Care Team Providers Care Shotblast Operator Name Role Phone Jessi Dueñas MD Primary Care Provider [phone] Encounter Details Date Type Department Care Team (Late st Contact Info) Description 06/14/2024 Orders Only [facility] MEDICINE [address] [place] [address] Jessi Dueñas MD [address] [place] [address] Restless leg syndrome Social History Tobacco Use [...] AM EDT Office Visit [facility] MEDICINE [address] [place] [address] Jessi Dueñas MD [address] [place] [address] 09/02/2024 8:00 AM EDT Office Visit [facility] ADULT DENTAL [address] [place] [address] Fuentes Hurley DDS [address] [place] [address] documented as of this encounter Visit Diagnoses Diagnosis Restless leg syndrome Restless legs syndrome (RLS) documented in this encounter Additional Health Concerns Assessment Noted Time PHQ-9 Depression Total Score: 8 09/19/19 24 11:07 AM EDT documented as of this encounter Care Teams Shotblast Operator Relationship Specialty Start Date End Date Jessi Dueñas MD [address] [place] [address] PCP - General Family Medicine 11/24/20 Mikayla Bhagat Rn HomecareTomato Grader 05/09/23 documented as of this encounter
--- OUTSIDE RECORDS SUMMARY | 2024-07-23 17:44 | XMS_ITS | Encounter Summary ---
Author Organization [employer] Address [address] [place] [address] Care Team Providers Care Mill Representative Name Role Phone Jessi Dueñas MD Primary Care Provider [phone] Encounter Details Date Type Department Care Team ([facility] st Contact Info) Description 02/08/2023 Telephone [facility] MEDICINE [address] [place] [address] Jessi Dueñas MD [address] [place] [address] Social History Tobacco Use Types Packs/Day Years [...] [facility] [address] [place] [address] Jessi Dueñas MD [address] [place] [address] 09/02/2024 8:00 AM EDT Office Visit [facility] ADULT DENTAL [address] [place] [address] Fuentes Hurley DDS [address] [place] [address] documented as of this encounter Visit Diagnoses Not on filedocumented in this encounter Additional Health Concerns Assessment Noted Time PHQ-9 Depression Total Score: 20 023 9:49 AM EDT documented as of this encounter Care Teams Mill Representative Relationship Specialty Start Date End Date Jessi Dueñas MD [address] [place] [phone] PCP - General Family Medicine 11/24/20 Mikayla Bhagat Metal Furnace OperatorSilica Filter Operator 05/09/23 documented as of this encounter
--- OUTSIDE RECORDS SUMMARY | 2024-07-23 17:44 | XMS_ITS | Encounter Summary ---
Author Organization [employer] Address [address] [facility] 7 [place] [address] Care Team Providers Care Road Cutter Name Role Phone Jessi Dueñas MD Primary Care Provider [phone] Reason for Visit * Reason Comments Med Refill Encounter Details Date Type Department Care Team ([facility] st Contact Info) Description 10/25/2023 Refill [facility] MEDICINE [address] [place] [address] Anita Arriaga MD [address] [place] [address] Social History Tobacco Use Types Packs/Day Years [...] Office Visit [facility] MEDICINE [address] [place] [phone] Jessi Dueñas MD [address] [place] [address] 09/02/2024 8:00 AM EDT Office Visit [facility] ADULT DENTAL [address] [place] [address] Fuentes Hurley DDS [address] [place] [address] documented as of this encounter Visit Diagnoses Not on filedocumented in this encounter Additional Health Concerns Assessment Noted Time PHQ-9 Depression Total Score: 8 09/19/19 24 11:07 AM EDT documented as of this encounter Care Teams Road Cutter Relationship Specialty Start Date End Date Jessi Dueñas MD [address] [place] [phone] PCP - General Family Medicine 11/24/20 Mikayla Bhagat Combination Window InstallerSolderer Torch 05/09/23 documented as of this encounter
--- OUTSIDE RECORDS SUMMARY | 2024-07-23 17:44 | XMS_ITS | Encounter Summary ---
Author Organization [employer] Address [address] 7[address] [place] [address] Care Team Providers Care Rayon Winder Name Role Phone Jessi Dueñas MD Primary Care Provider Encounter Details Date Type Department Care Team (Late st Contact Info) Description 03/29/2022 Orders Only [facility] MEDICINE [address] [place] [phone] Jessi Dueñas MD [address] [place] [phone] Choking episode occurring at night (Primary Dx) [...] [facility] MEDICINE [address] [place] [phone] Jessi Dueñas MD [address] [place] [address] 09/02/2024 8:00 AM EDT Office Visit [facility] ADULT DENTAL [address] [place], [place] [phone] Fuentes Hurley DDS [address] [place], [place] [phone] documented as of this encounter Visit Diagnoses Diagnosis Choking episode occurring at night- Primary documented in this encounter Care Teams Rayon Winder Relationship Specialty Start Date End Date Jessi Dueñas MD [address] [place], [place] [phone] PCP - General Family Medicine 11/24/20 Mikayla Bhagat Barrel DrillerSupervisor Special Education 05/09/23 documented as of this encounter
--- OUTSIDE RECORDS SUMMARY | 2024-07-23 17:44 | XMS_ITS | Encounter Summary ---
Author Organization [employer] Address [address] 7[address] [place] [address] Care Team Providers Care Machine Bobbin Winder Name Role Phone Jessi Dueñas MD Primary Care Provider [phone] Encounter Details Date Type Department Care Team (Late st Contact Info) Description 01/11/2023 Orders Only [facility] MEDICINE [address] [place] [address] Jessi Dueñas MD [address] [place] [address] Chronic pain of both knees (Primary Dx) [...] Office Visit [facility] MEDICINE [address] [place] [address] Jessi Dueñas MD [address] [place] [address] 09/02/2024 8:00 AM EDT Office Visit [facility] ADULT DENTAL [address] [place] [address] Fuentes Hurley DDS [address] [place] [address] documented as of this encounter Visit Diagnoses Diagnosis Chronic pain of both knees- Primary documented in this encounter Additional Health Concerns Assessment Noted Time PHQ-9 Depression Total Score: 20 023 9:49 AM EDT documented as of this encounter Care Teams Machine Bobbin Winder Relationship Specialty Start Date End Date Jessi Dueñas MD [address] [place] [address] PCP - General Family Medicine 11/24/20 Mikayla Bhagat Pastoral Ministries ProfessorSterile Proc Tech 05/09/23 documented as of this encounter
--- OUTSIDE RECORDS SUMMARY | 2024-07-23 17:44 | XMS_ITS | Encounter Summary ---
Author Organization [employer] Address [address] [place] [address] Care Team Providers Care Equal Opportunity Representative Name Role Phone Jessi Dueñas MD Primary Care Provider [phone] Reason for Visit * Reason Comments Med Refill Encounter Details Date Type Department Care Team ([facility] st Contact Info) Description 11/23/2023 Refill [facility] MEDICINE [address] [place] [address] Jessi Dueñas MD [address] [place] [address] Social History Tobacco Use Types Packs/Day Years [...] Description 07/26/2024 9:45 AM EDT Office Visit [facility] MEDICINE [address] [place] [address] Jessi Dueñas MD [address] [place] [address] 09/02/2024 8:00 AM EDT Office Visit [facility] ADULT DENTAL [address] [place] [address] Fuentes Hurley DDS [address] [place] [address] documented as of this encounter Visit Diagnoses Not on filedocumented in this encounter Additional Health Concerns Assessment Noted Time PHQ-9 Depression Total Score: 8 09/19/19 24 11:07 AM EDT documented as of this encounter Care Teams Equal Opportunity Representative Relationship Specialty Start Date End Date Jessi Dueñas MD [address] [place] [address] PCP - General Family Medicine 11/24/20 Mikayla Bhagat Clinical SupervisorPet Caregiver 05/09/23 documented as of this encounter
--- OUTSIDE RECORDS SUMMARY | 2024-07-23 17:44 | XMS_ITS | Encounter Summary ---
Author Organization [employer] Address [address] [place] [address] Care Team Providers Care Staff Pharmacist Name Role Phone Jessi Dueñas MD Primary Care Provider [phone] Reason for Visit * Reason Onset Date Comments Other 01/05/2023 Encounter Details Date Type Department Care Team ([facility] st Contact Info) Description 01/05/2023 Telephone [facility] MEDICINE [address] [place] [address] Jessi Dueñas MD [address] [place] [address] Other Social History Tobacco Use Types Packs/Day [...] 12:53 PM EDT TC placed to pt [phone] to inform pt PCP sent Cymbalta to the pharmacy yesterday at [facility] for her pain. Pt reports she called [facility] pharmacy today and they told her that they did not receive the script. RN placed pt on hold and called [facility] pharmacy who confirmed they did [...] rheumatology referral d/t [facility] not speaking danish. Pt was informed PCP has placed new rheumatology referral for [facility] yesterday. Pt verbalized understanding. Pt to f/u PRN. * Telephone Encounter - Divya Frank - 01/05/2023 11:51 AM EDT Tc from pt states PCP advised her she will send a script for pain on 01/04 appointment but pt never received medication. Please contact pt at [phone] ([place]) documented in this encounter Plan of Treatment Upcoming Encounters Date Type Department Care Team (Late st Contact Info) Description 07/26/2024 9:45 AM EDT Office Visit [facility] MEDICINE [address] [place] [address] Jessi Dueñas MD [address] [place] [address] 09/02/2024 8:00 AM EDT Office Visit [facility] ADULT DENTAL [address] [place] [address] Fuentes Hurley DDS [address] [place] [address] documented as of this encounter Visit Diagnoses Not on filedocumented in this encounter Additional Health Concerns Assessment Noted Time PHQ-9 Depression Total Score: 20 023 9:49 AM EDT documented as of this encounter Care Teams Staff Pharmacist Relationship Specialty Start Date End Date Jessi Dueñas MD [address] [place] [address] PCP - General Family Medicine 11/24/20 Mikayla Bhagat Physical Chemistry ProfessorFixed Income Portfolio Manager 05/09/23 documented as of this encounter
--- OUTSIDE RECORDS SUMMARY | 2024-07-23 17:44 | XMS_ITS | Clinical Summary ---
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 chief 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 apt 09/2023 Labs showed low titer [...] & Plan (10/06/2023 12:39 PM EDT): 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 technologist chief last apt 09/2023 Labs showed low titer [...] & Plan (09/19/2023 6:11 PM EDT): 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 technologist chief last apt 09/2023 Labs showed low titer [...] has already asked an agency to do [facility] evaluation To go to medical records and [...] (05/19/2023 10:31 AM EST): Plan to see [facility] rheumatology in June [...] 12:59 PM EST): Will send referral to [facility] rheumatology, JUANITO + , whole body pain, fatigue, all worse after two episodes of C diff Still likely fibromyalgia Recommend avoidance of marijuana and cocaine, drugs purchased on the street Assessment & Plan (01/04/2023 7:56 PM EDT): Will send referral to [facility] rheumatology, JUANITO + [...] aware of side effects, somnolence, 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 Neck pain 10/27/2022 [...] & Plan (02/20/2023 12:56 PM EST): Call [facility] to get appointment at their [facility] clinic Polyarthralgia 03/10/2022 Myopia of both eyes [...] Description 07/18/2024 1:00 PM EDT Office Visit [facility] [address] [place] [address] Kenisha Estevez DDS Dental caries (Primary Dx) 07/06/2024 Refill [facility] [address] [place] [address] Jessi Dueñas MD 07/04/2024 Orders Only GENERIC EXTERNAL DATA DEPARTMENT Provider, Generic External Data 07/02/2024 Orders Only [facility] External Provider, [facility] 07/02/2024 Refill [facility] [address] [place] [address] Jessi Dueñas MD Fibromyalgia 06/27/2024 Telephone [facility] [address] [place] [address] Jessi Dueñas MD DME from Rahul 06/19/2024 Orders Only GENERIC EXTERNAL DATA DEPARTMENT Provider, Generic External Data 06/18/2024 3:20 PM EDT Office Visit [facility] [address] [place] [address] Ignacio Rivera MD Akathisia (Primary Dx) 06/18/2024 Patient Outreach [facility] [address] [place] [address] Jessi Dueñas MD Care Coordination ([address] telephone call outreach) 06/17/2024 Telephone [facility] [address] [place] [address] Jessi Dueñas MD LETTER 06/14/2024 Orders Only [facility] [address] [place] [address] Jessi Dueñas MD Restless leg syndrome 06/14/2024 Population Health [facility] ([facility] Department [address] [place] [phone] Provider, Population Health Generic 06/12/2024 Telephone [facility] [address] [place] [address] Jessi Dueñas MD Medication Question; Med Refill 06/08/2024 Refill [facility] [address] [place] [address] Jessi Dueñas MD 06/03/2024 Refill [facility] [address] [place] [address] Jessi Dueñas MD Fibromyalgia 05/30/2024 Patient Outreach [facility] [address] [place] [phone] Jessi Dueñas MD Care Coordination ([address] [place] telephone call outreach) 05/30/2024 Orders Only [facility] External Provider, [facility] 05/29/2024 Patient Outreach [facility] [address] [place] [address] Jessi Dueñas MD Transition Of Care (Tcm) (ED visit requested) 05/29/2024 Telephone [facility] [address] [place] [phone] Jessi Dueñas MD Med Refill 05/29/2024 Refill [facility] [address] [place] [address] Jessi Dueñas MD Fibromyalgia 05/28/2024 Patient Outreach [address] [address] Jessi Dueñas MD Transition Of Care (Tcm) (ERRORr) 05/27/2024 Patient Outreach [address] [address] Jessi Dueñas MD Care Coordination ([facility] -[facility] telephone call outreach /) 05/27/2024 Patient Outreach [address] [address] Jessi Dueñas MD Care Coordination (C3 -[facility] telephone call outreach) 05/27/[address] [address] Jessi Dueñas MD Care Management (C3- chart review) 05/25/2024 9:40 AM EST Office Visit [facility] [address] [place] [address] Ignacio Rivera MD Diarrhea, unspecified type (Primary Dx); Nausea and vomiting, unspecified vomiting type 05/25/2024 Orders Only GENERIC EXTERNAL DATA DEPARTMENT Provider, Generic External Data 05/17/2024 11:00 AM EST Office Visit [address] [address] Jessi Dueñas MD Weight loss of more than 10% body weight (Primary Dx); Post concussion syndrome; Gastroesophageal reflux disease without esophagitis; Bipolar affective disorder, currently depressed, moderate ([facility]); Fibromyalgia 05/17/2024 Orders Only GENERIC EXTERNAL DATA DEPARTMENT Provider, Generic External Data 05/17/2024 Travel 05/13/[address] [address] Jessi Dueñas MD [employer] (Disposable Underpad/Chux Large) 05/12/[address] [address] Jessi Dueñas MD Allergic rhinitis, unspecified seasonality, unspecified trigger 05/02/[address] [address] Jessi Dueñas MD [employer] (Disposable underpad, large/1 unit = each, 248 per mo.) 04/29/2024 Refill [facility] [address] [place] [address] Jessi Dueñas MD Fibromyalgia from Last 3 [...] Description 07/26/2024 9:45 AM EDT Office Visit [facility] [address] [place] [address] Jessi Dueñas MD [address] [place] [address] 09/02/2024 8:00 AM EDT Office Visit [facility] [address] [place] [address] Fuentes Hurley, DDS [address] [place] [address] Health Maintenance Due Date Last Done Comments [...] Free T4 1.05 0.32 - 4.0 uIU/mL [facility] 07/04/2024 9:28 AM EDT 07/04/2024 9:28 AM EDT us Generic External Data Provider LAB BLOOD ORDERAB LES Final Result [facility] [address] [place] [phone] * (ABNORMAL) CBC (07/04/2024 9:28 AM EDT) White Blood Count 7.5 4.8 - 10.8 X10*3/uL [facility] Red Blood Count 3.84(L) 4.20 - 5.50 X10*6/uL [facility] Hemoglobin 12.1 12.0 - 16.0 g/dl [facility] Hematocrit 35.9(L) 37.0 - 47.0 % [facility] Mean Corpuscular Volume 93.5 80.0 - 98.0 fL [facility] Mean Corpuscular Hemoglobin 31.5 27.0 - 33.0 pg [facility] Mean Corpuscular HGB Conc 33.7 31.0 - 35.0 g/dl [facility] Red Cell Distribution Width 12.9 11.0 - 16.0 % [facility] Platelet Count 273 160 - 400 X10*3/uL [facility] Mean Platelet Volume 10.2 9.4 - 12.3 fL [facility] NRBC Pct Auto 0.0 0.0 - 0.2 /100WBC [facility] NRBC Abs Auto 0.000 0.0 - 0.012 X10*3/uL [facility] 07/04/2024 9:28 AM EDT 07/04/2024 9:28 AM EDT us Generic External Data Provider LAB BLOOD ORDERAB LES Final Result [facility] [address] [place] [phone] * hCG, Total, Quantitative (07/04/2024 9:28 AM EDT) Only the most recent of2 resultswithin the time period is included. HCG Quantitative <2 mIU/mL [facility] Comment:Weeks post LMP Appro ximate hCG(Last Menstrual Period) Range (mIU/ml)3 - 4 weeks 9 - 1304 - 5 weeks 75 - 2,6005 - 6 weeks 850 - 20,8006 - 7 weeks 4000 - 100,2007 - 12 weeks 11,500 - 289,20244 - 16 weeks 18,300 - 137,89972 - 29 weeks (2nd trimester) 1,400 - 53,36313 - 41 weeks (3rd trimester) 940 - [...] Provider LAB BLOOD ORDERAB LES Final Result [facility] [address] [place] [phone] * Hematoxylin and Eosin Stain (07/04/2024 9:04 AM EDT) 07/04/2024 9:04 AM EDT 07/05/2024 6:20 AM EDT Narrative [facility] - 07/08/2024 11:33 AM EDT ----- ------- Name: Kera Armstrong ? Age/Sex: 43/F ? : 1980 Unit#: [id number] ?? Attend Dr: Harjit Parada MD ?Re07/04/24 ?Status: DEP REF ? Location: HO.LNP ?Disch: ? ----- ------- SPEC : [id number] ? RECD: 07/05/24 ? STATUS: ??SOUT ? REQ NUM: [id number] ? BRUCE: 07/04/24 ? SUBM DR: Harjit [...] microscopic examination, multiple pieces in cassette A. ([facility]) Copies To: ?? Jessi Dueñas ?? [address] ?? [place] [address] ?? [phone] ?? Harjit Parada MD ?? [facility] Women's Services ?? [address] ?? [place] [address] ?? [phone] ----- ------- Signed (signature on file) Sherry Almanzar 07/08/24 1133 ? ----- ------- ? END OF REPORT ? Generic External Data Provider LAB BLOOD ORDERAB LES Final Result Performing Organization Address [facility] de Phone Number [facility] [address] [place] [phone] * Culture, Urine, Routine (07/04/2024 8:18 AM EDT) Urine Urine specimen obtained by clean catch procedure / Unknown 07/04/2024 8:18 AM EDT 07/04/2024 3:38 PM EDT Comment:UACC Narrative [facility] - 07/06/2024 12:41 PM EDT Urine Culture Report Result Urine Culture < 10,000 cfu/ml Specimen Source: Urine clean catch Generic External Data Provider LAB MICROBIOLOGY - GENERAL ORDERABLES Final Result Performing Organization Address [facility] Co de Phone Number [facility] [address] [place] [address] [phone] * US Pelvis Transvaginal (07/02/2024 1:10 PM EDT) Anatomical Region Laterality Modality Pelvis Ultrasound 07/02/2024 1:10 PM EDT Narrative 07/03/2024 7:10 AM EDT ? [facility] ?[address] ? [place] [address] ? Ultrasound Report ? Signed ? Patient: Kera Armstrong ?MR#: MM ?? [id number] ? : 1980 ?Acct:[id number] ? Age/Sex: 43 / F ?ADM Date: 07/02/24 ? Loc: HO.HMGCX ? Attending Dr: Lindsey Zuñiga CNM ? Ordering Physician: Lindsey Zuñiga CNM ?? Date of Service: 07/02/24 ?? Procedure(s): US pelvic and transvaginal ?? Accession Number(s): [id number] ? cc: Jessi Dueñas; Lindsey Zuñiga CNM [...] DD/ 1310 ? TD/TT: 07/02/24 1335 ? Integration Architect: ? Procedure Note Doncelsoter, Image - 07/03/2024 [facility] [address] [place] [address] [place] [address] Ultrasound Report Signed Patient: Kera ArmstrongMR#: [id number] : 1980Acct:[id number] Age/Sex: 43 / FADM Date: 07/02/24 Loc: HO.HMGCX Attending Dr: Lindsey Zuñiga CNM Ordering Physician: Lindsey Zuñiga CNM Date of Service: 07/02/24 Procedure(s): US pelvic and transvaginal Accession Number(s): [id number] cc: Jessi Dueñas; Lindsey Zuñiga CNM EXAMINATION: [...] 07/03/24 0708 DD/ 1310 TD/TT: 07/02/24 1335 Integration Architect: [facility] External Provider IMG US PROCEDURES Edited Result - Final * (ABNORMAL) Bacterial Vaginosis (06/19/2024 12:00 AM EDT) TRICHOMONAS VAGINALIS DETECTION BY PCR NOT DETECTED Not Detect [facility] BACTERIAL VAGINOSIS DETECTION BY PCR POSITIVE(A) Negative [facility] Comment:The BV organism targ ets [...] DETECTION BY PCR NOT DETECTED Not Detect [facility] Latanya glab krusei PCR NOT DETECTED Not Detect [facility] 06/19/2024 06/19/2024 us Generic External Data Provider LAB MICROBIOLOGY - GENERAL ORDERABLES Final Result [facility] [address] [place] [address] [phone] * Chlamydia/N. Gonorrhoeae RNA, TMA, Urogenitial (06/19/2024 12:00 AM EDT) CT PCR NOT DETECTED Not Detect. [facility] Comment:A not detected test result [...] psychologicalconsequences. NG PCR NOT DETECTED Not Detect. [facility] Comment:A not detected test result [...] medical, social or psychologicalconsequences. 06/19/2024 06/19/2024 Narrative [facility] - 06/20/2024 3:48 AM EDT Vaginal us Generic External Data Provider LAB MICROBIOLOGY - GENERAL ORDERABLES Final Result [facility] [address] [place] [address] [phone] * MR MRCP (05/30/2024 7:29 AM EST) Anatomical Region Laterality Modality Lower Extremities Left Magnetic Reson ance 05/30/2024 7:29 AM EST Narrative 05/30/2024 8:24 AM EST ? [facility] ?[address] ?[place] [address] ? Magnetic Resonance Report ? Signed ? Patient: Kera Armstrong ?MR#: MM ?? [id number] ? : 1980 ?Acct:[id number] ? Age/Sex: 43 / F ?ADM Date: 05/30/24 ? Loc: HO.MRI ? Attending Dr: Ashley MILNER-BC ? Ordering Physician: Ashley Duncan ?? Date of Service: 05/30/24 ?? Procedure(s): MR MRCP ?? Accession Number(s): [id number] ? cc: Jessi Dueñas; Ashley Duncan CONFIGURATION TECHNICIAN-BC ? EXAMINATION: ??MRCP ? HISTORY: R63.4 - [...] DD/ 0729 ? TD/TT: 05/30/24 0805 ? Integration Architect: ? Procedure Note Cy, Image - 05/30/2024 [place] [address] Magnetic Resonance Report Signed Patient: Kera Armstrong#: [id number] : 1980Acct:[id number] Age/Sex: 43 / FADM Date: 05/30/24 Loc: HO.MRI Attending Dr: Ashley MILNER- Ordering Physician: Ashley Duncan Date of Service: 05/30/24 Procedure(s): MR MRCP Accession Number(s): [id number] cc: Jessi Dueñas; Ashley Duncan EXAMINATION: MRCP [...] 05/30/24 0821 DD/ 0729 TD/TT: 05/30/24 0805 Integration Architect: [facility] External Provider IMG MRI PROCEDURES Final Result * SARS-CoV-2 RNA, Influenza A/B, and RSV RNA, Ql NAAT (05/25/2024 11:59 PM EST) Influenza A PCR NEGATIVE Negative [facility] Influenza B PCR NEGATIVE Negative [facility] Resp Syncy Virus RNA Qual PCR NEGATIVE Negative [facility] SARS COV2 PCR NEGATIVE Negative [facility] Comment:All test results mus t [...] use by authorized laboratories.Testing performed on the [employer] ([email or web address]) GeneXpert utilizingreal-time RT-PCR.All SARS CoV2 and positive influenza A/B results arereported to [facility]. 05/25/2024 11:5 9 PM EST 05/26/2024 12:02 AM EST us Generic External Data Provider LAB MICROBIOLOGY - GENERAL ORDERABLES Final Result [facility] [address] [place] [address] [phone] * (ABNORMAL) CBC auto differential (05/25/2024 11:59 PM EST) White Blood Count 7.4 4.8 - 10.8 X10*3/uL [facility] Red Blood Count 3.94(L) 4.20 - 5.50 X10*6/uL [facility] Hemoglobin 12.4 12.0 - 16.0 g/dl [facility] Hematocrit 35.1(L) 37.0 - 47.0 % [facility] Mean Corpuscular Volume 89.1 80.0 - 98.0 fL [facility] Mean Corpuscular Hemoglobin 31.5 27.0 - 33.0 pg [facility] Mean Corpuscular HGB Conc 35.3(H) 31.0 - 35.0 g/dl [facility] Red Cell Distribution Width 12.4 11.0 - 16.0 % [facility] Platelet Count 284 160 - 400 X10*3/uL [facility] Mean Platelet Volume 9.2(L) 9.4 - 12.3 fL [facility] Neutrophils Percent Auto 43.6(L) 45 - 73 % [facility] Imm Gran Pct Auto 0.1 0.0 - 0.4 % [facility] Lymphocytes Percent Auto 49.7(H) 20 - 40 % [facility] Monocytes Percent Auto 6.3 2 - 11 % [facility] Eosinophils Percent Auto 0.3 0 - 4 % [facility] Basophils Percent Auto 0.0 0 - 2 % [facility] NRBC Pct Auto 0.0 0.0 - 0.2 /100WBC [facility] Neutrophils Absolute Auto 3.2 2.0 - 8.3 x10*3/uL [facility] Imm Gran Abs Auto 0.01 0.00 - 0.03 X10*3/uL [facility] Lymphocytes Absolute Auto 3.7 1.2 - 4.9 X10*3/uL [facility] Monocytes Absolute Auto 0.5 0.1 - 1.2 X10*3/uL [facility] Eosinophils Absolute Auto 0.0 0.0 - 0.4 X10*3/uL [facility] Basophils Absolute Auto 0.0 0.0 - 0.2 X10*3/uL [facility] NRBC Abs Auto 0.000 0.0 - 0.012 X10*3/uL [facility] 05/25/2024 11:5 9 PM EST 05/26/2024 12:02 AM EST Generic External Data Provider LAB BLOOD ORDERAB LES Final Result Performing Organization Address City/[facility]/ZIP Co de Phone Number [facility] [address] [place] [phone] * Magnesium (05/25/2024 11:59 PM EST) Magnesium 2.0 1.6 - 2.6 mg/dL [facility] 05/25/2024 11:5 9 PM EST 05/26/2024 12:02 AM EST Generic External Data Provider LAB BLOOD ORDERAB LES Final Result Performing Organization Address City/[facility] Co de Phone Number [facility] [address] [place] [phone] * Lipase (05/25/2024 11:59 PM EST) Only the most recent of2 resultswithin the time period is included. Lipase 33 8 - 78 U/L [facility] 05/25/2024 11:5 9 PM EST 05/26/2024 12:02 AM EST us Generic External Data Provider LAB BLOOD ORDERAB LES Final Result Performing Organization Address [facility] Co de Phone Number [facility] [address] [place] [phone] * Hepatic Function Panel (05/25/2024 11:59 PM EST) Only the most recent of2 resultswithin the time period is included. Bilirubin, Total 0.5 0.0 - 1.0 mg/dL [facility] Bilirubin, Direct 0.2 0.0 - 0.5 mg/dL [facility] Aspartate Amino Transferase 21 5 - 31 U/L [facility] Alanine Aminotransferase 21 0 - 31 U/L [facility] Total Protein 6.9 6.5 - 8.0 g/dL [facility] Albumin Level 4.0 3.5 - 5.0 g/dL [facility] Alkaline Phosphatase 52 39 - 117 U/L [facility] 05/25/2024 11:5 9 PM EST 05/26/2024 12:02 AM EST us Generic External Data Provider LAB BLOOD ORDERAB LES Final Result Performing Organization Address [facility] Co de Phone Number [facility] [address] [place] [phone] * (ABNORMAL) Basic Metabolic Panel (05/25/2024 11:59 PM EST) Sodium 140 135 - 145 mmol/L [facility] Potassium 3.6 3.3 - 5.1 mmol/L [facility] Chloride 110(H) 96 - 108 mmol/L [facility] Carbon Dioxide 23 22 - 29 mmol/L [facility] Anion Gap 11(L) 12 - 20 [facility] Urea Nitrogen (BUN) 14 9 - 16 mg/dL [facility] Creatinine, Serum 0.83 0.5 - 1.4 mg/dL [facility] Creatinine Clr Calc Pharmacy 74.7 [facility] Comment:Provided height and weight: 170.18 cm,53.1 kg.eGFR (calculated from the MDRD study equation) and eCrCl(calculated from the Cockcroft-Gault equation) are based ondifferent parameters and may not yield comparable results.If eCrCl result is absurd, please check patient'sheight/weight. Estimated Glomerular Filt Rate >60 [facility] Comment:Chronic Kidney Disea se: Estimated GFR < 60 mL/min/1.98t1Qkoldo Kidney Disease: Estimated GFR < 15 mL/min/1.73m2 Glucose 100 60 - 115 mg/dL [facility] Calcium 8.8 8.4 - 10.2 mg/dL [facility] 05/25/2024 11:5 9 PM EST 05/26/2024 12:02 AM EST us Generic External Data Provider LAB BLOOD ORDERAB LES Final Result Performing Organization Address City/[facility]/ZIP Co de Phone Number [facility] [address] [place] [phone] * POCT Rapid Influenza B BOYER ID NOW (05/25/2024 9:52 AM EST) Influenza B Negative Negative, Indeterminate [facility] QC Media Lot # [id number] [facility] Lot# Expiration Date [phone] [facility] Swab 05/25/2024 9:52 AM EST us Ignacio Rivera MD POINT OF CARE TEST ENTER/EDIT OR DERABLES Final Result Performing Organization Address City/[facility]/ZIP Co de Phone Number [facility] [address] [place] [phone] * POCT Rapid Influenza A BOYER ID NOW (05/25/2024 9:51 AM EST) Influenza A Negative Negative, Indeterminate [facility] QC Media Lot # [id number] [facility] Lot# Expiration Date [facility] Swab 05/25/2024 9:51 AM EST us Ignacio Name POINT OF CARE TEST ENTER/EDIT OR DERABLES Final Result [facility] [address] [place] [phone] * POCT Rapid Covid-19 BinaxNOW (05/25/2024 [...] Campus Vitamin D, 25-OH, D2 <4 ng/mL [facility] Comment:This test was develo ped and its analytical performancecharacteristics have been determined by [facility] [place], [place]. It hasnot been cleared or approved by the U.S. Food and DrugAdministration. This assay has been validated pursuantto the CLIA regulations and is used for clinicalpurposes.THIS TEST WAS PERFORMED AT:[employer]/[facility] [place] [phone] MADRID MD,PHD Vitamin D, 25-OH, D3 31 ng/mL [facility] Comment:This test was develo ped and its analytical performancecharacteristics have been determined by [facility] [place], [place]. It hasnot been cleared or approved by the U.S. Food and DrugAdministration. This assay has been validated pursuantto the CLIA regulations and is used for clinicalpurposes. Vitamin D, 25-OH, Total 31 30 - 100 ng/mL [facility] Comment:Vitamin D, 25-Hydrox y reports [...] = 30 ng/mL.For additional information, please refer tohttp://education.MobileSnack/faq/IPQ966(This link is being provided for informational/educational purposes only.) 05/17/2024 9:40 AM EST 05/17/2024 9:40 AM EST us Generic External Data Provider LAB BLOOD ORDERAB LES Final Result Performing Organization Address [facility] Co de Phone Number [facility] [address] [place] [phone] * Vitamin B12 (Cobalamin) and Folate Panel, Serum (05/17/2024 9:40 AM EST) Vitamin B12 474 200 - 900 pg/mL [facility] Comment:NORMAL 200-900 PG/ML INDETERMINATE 160-199 PG/ML DEFICIENT < 160 PG/ML Folate 15.2 > or = 4.0 ng/mL [facility] Comment:Reference Values:> o r = 4.0 ng/mL< 4.0 ng/mL suggests folate deficiency Methotrexate, aminopterin and folinic acid(leucovorin) are chemotherapeutic agents whose molecularstructures are similar to folate; therefore, the Architectfolate assay cannot be used for patients using these drugs. 05/17/2024 9:40 AM EST 05/17/2024 9:40 AM EST us Generic External Data Provider LAB BLOOD ORDERAB LES Final Result Performing Organization Address [facility]/State/ZIP Co de Phone Number [facility] [address] [place] [phone] [phone] * Hepatitis Panel, General (05/17/2024 9:40 AM EST) Hepatitis A IgM Nonreactive Nonreactive [facility] Comment:IgM antibodies to AMAYA V not detected; does not exclude earlyacute or recovered HAV infection. ~Hepatitis B Surface Antibody REACTIVE Nonreactive [facility] Comment:REACTIVE: > 11.99 mI U/mL Hepatitis B Core Antibody Nonreactive Nonreactive [facility] Hepatitis C Antibody Nonreactive Nonreactive [facility] Comment:Antibodies to HCV no t detected; does not exclude early acuteHCV infection. Hepatitis B Surface Ag Negative Negative [facility] 05/17/2024 9:40 AM EST 05/17/2024 9:40 AM EST Generic External Data Provider LAB BLOOD ORDERAB LES Final Result [facility] [address] [place] [phone] [phone] * HIV-1/2 Antigen and Antibodies, Fourth Generation, with Reflexes (05/17/2024 9:40 AM EST) Pathologist [facility] HIV AB/AG Nonreactive Nonreactive [facility] Comment:HIV-1 p24 Ag and/or HIV-1/HIV-2 Ab not detected.A test result that is nonreactive does not exclude thepossibility of exposure to or infection with HIV-1 and/orHIV-2. Nonreactive results in this assay for individualswith prior exposure to HIV-1 and/or HIV-2 may be due toantigen and antibody levels that are below the limit ofdetection of this assay.The [employer] HIV Ag/Ab Combo assay result andsupplemental assay results should be interpreted inconjunction with the patient's clinical presentation,history and other laboratory results. If the results areinconsistent with clinical evidence, additional testing issuggested to confirm the result. 05/17/2024 9:40 AM EST 05/17/2024 9:40 AM EST us Generic External Data Provider LAB BLOOD ORDERAB LES Final Result [facility] [address] [facility] [place] [address] [phone] * BI Mammogram Screening Tomosynthesis Bilateral (09/28/2023 12:08 PM EDT) Anatomical Region Laterality Modality Breast Bilateral Mammography 09/28/2023 12:0 8 PM EDT Narrative 10/27/2023 9:20 AM EDT ? [facility] ? [address] ?[place] [address] ? Mammography Report ? Signed ? Patient: Kera Armstrong ?MR#: [id number] ?? [id number] ? : 1980 ?Acct:[id number] ? Age/Sex: 42 / F ?ADM Date: 09/28/23 ? Loc: HO.MAMMO ? Attending Dr: Jessi Dueñas MD ? Ordering Physician: Anita Arriaga MD ?Re ?? sults: 1Negative ? Date of Service: 09/28/23 ?Follow Up: 1 Year From Orig ?? inal Mammogram ? Procedure(s): MM tomosynthesis screening BI ?? Accession Number(s): [id number] ? cc: Jessi Dueñas; Anita Arriaga MD [...] 0916 ? DD/ 1208 ? TD/TT: ? Integration Architect: ? Procedure Note Cy, Eloy - 10/27/2023 [facility] [address] [place] [address] Dr. [place], [place] [address] Mammography Report Signed Patient: Kera Armstrong#: MM [id number] : 1980Acct:[id number] Age/Sex: 42 / FADM Date: 09/28/23 Loc: PINA Attending Dr: Jessi Dueñas MD Ordering Physician: Anita Arriaga sults: 1Negative Date of Service: 09/28/23Follow Up: 1 Year From Orig inal Mammogram Procedure(s): MM tomosynthesis screening BI Accession Number(s): [id number] cc: Jessi Dueñas; Anita Arriaga MD EXAMINATION: [...] in OV> 10/27/23 0916 DD/ 1208 TD/TT: Integration Architect: Anita Roca MD IMG BI PROCEDURES Final Result * THINPREP TIS PAP (02/22/2021 12:00 AM EST) Clinical Information: None given [facility] COMMENT SEE COMMENT [facility] ON [...] was manually screened according to routine procedures. Technology And Engineering Teacher : SEE COMMENT [facility] Comment: KN, CT(ASCP) CT screening location: [address] ??[id number] Interpretation/R esult: Negative for intraepithelial lesion or malignancy. [facility] LMP: NONE GIVEN [facility] Prev. BX: NONE GIVEN [facility] Prev. PAP: NONE GIVEN [facility]OUND[facility] ON LAB [facility] SOURCE: None given [facility] Statement Of Adequacy: SEE COMMENT [facility] Comment: Satisfactory for evaluation. Endocervical/transformation zone component absent. Partially obscuring blood 02/22/2021 Jessi Dueñas MD LAB PATHOLOGY ORDERABLES Final Result Performing Organization Address [facility] de Phone Number [facility] [address] * HPV mRNA E6/E7 REFLEX TO HPV 16, 18/45 (02/22/2021 12:00 AM EST) HPV nRNA E6/E7 Not Detected Not Detected [facility] Comment: Methodology: Tile Erector-Mediated Amplification This assay detects E6/E7 viral messenger RNA (mRNA) from 14 high-risk HPV types (16,18,31,33,35,39,45,51,52,56,58,59,66,68). ? The analytical performance characteristics of this assay have been determined by [employer]. The modifications have not been cleared or approved by the FDA. This assay has been validated pursuant to the CLIA regulations and is used for clinical purposes. ?? For additional information, please refer to [email or web address]/faq/IKE972j1 (This link if provided for information/ educational purposes only.) 02/22/2021 Jessi Dueñas MD LAB CYTOLOGY ORDERABLES Final Result Performing Organization Address [facility] de Phone Number [facility] [address] from Last 3 Months or Most Recently Relevant to Health Maintenance Insurance [facility] C3 HSN PARTIAL DENTAL-[facility] MEDICAID STAND ADULT Care Teams Jewel Waxer Relationship Specialty Start Date End Date Jessi Dueñas MD [address] [place] [phone] PCP - General Family Medicine 11/24/20 Mikayla Bhagat Senior Front End EngineerSupervisor Enrobing 05/09/23
--- OUTSIDE RECORDS SUMMARY | 2024-07-23 17:44 | XMS_ITS | Encounter Summary ---
Author Organization [employer] Address [address] [place] [address] Care Team Providers Care Commercial Art Instructor Name Role Phone Jessi Dueñas MD Primary Care Provider Reason for Visit * Reason Onset Date Comments Call Back Request 01/23/2024 Encounter Details Date Type Department Care Team ([facility] st Contact Info) Description 01/23/2024 Telephone [facility] MEDICINE [address] [place] [address] Jessi Dueñas MD [address] [place] [address] Call Back Request Social History Tobacco Use [...] no scripts sent. Please contact pt at [phone]. (Faroese Speaker) documented in this encounter Plan of Treatment Upcoming Encounters Date Type Department Care Team (Late st Contact Info) Description 07/26/2024 9:45 AM EDT Office Visit [facility] MEDICINE [address] [place] [address] Jessi Dueñas MD [address] [place] [address] 09/02/2024 8:00 AM EDT Office Visit [facility] ADULT DENTAL [address] [place] [address] Fuentes Hurley DDS [address] [place] [address] documented as of this encounter Visit Diagnoses Not on filedocumented in this encounter Additional Health Concerns Assessment Noted Time PHQ-9 Depression Total Score: 8 09/19/19 24 11:07 AM EDT documented as of this encounter Care Teams Commercial Art Instructor Relationship Specialty Start Date End Date Jessi Dueñas MD [address] [place] [address] PCP - General Family Medicine 11/24/20 Mikayla Bhagat Log Yard Derrick OperatorToll Test Worker 05/09/23 documented as of this encounter
--- OUTSIDE RECORDS SUMMARY | 2024-07-23 17:44 | XMS_ITS | Encounter Summary ---
Author Organization [employer] Address [address] [place] [address] Care Team Providers Care Calculating Machine Mechanic Name Role Phone Jessi Dueñas MD Primary Care Provider [phone] Reason for Visit * Reason Onset Date Comments Referral 12/23/2022 Encounter Details Date Type Department Care Team (Late st Contact Info) Description 12/23/2022 Telephone [facility] MEDICINE [address] [place] [address] Jessi Dueñas MD [address] [place] [address] Referral Social History Tobacco Use Types Packs/Day [...] have interpreters. Any questions, contact pt at [phone] (Luxembourgish) documented in this encounter Plan of Treatment Upcoming Encounters Date Type Department Care Team (Late st Contact Info) Description 07/26/2024 9:45 AM EDT Office Visit [facility] MEDICINE [address] [place] [address] Jessi Dueñas MD [address] [place] [address] 09/02/2024 8:00 AM EDT Office Visit [facility] ADULT DENTAL [address] [place] [address] Fuentes Hurley DDS [address] [place] [address] documented as of this encounter Visit Diagnoses Not on filedocumented in this encounter Additional Health Concerns Assessment Noted Time PHQ-9 Depression Total Score: 19 023 2:59 PM EST documented as of this encounter Care Teams Calculating Machine Mechanic Relationship Specialty Start Date End Date Jessi Dueñas MD [address] [place] [phone] PCP - General Family Medicine 11/24/20 Mikayla Bhagat Head Of Precision TargetingApplied Biology Professor 05/09/23 documented as of this encounter
--- OUTSIDE RECORDS SUMMARY | 2024-07-23 17:44 | XMS_ITS | Encounter Summary ---
Author Organization [employer] Address [address] [place] [address] Care Team Providers Care Cable Reeler Name Role Phone Jessi Dueñas MD Primary Care Provider [phone] Encounter Details Date Type Department Care Team (Late st Contact Info) Description 10/12/2022 Orders Only [facility] MEDICINE [address] [place] [address] Jessi Dueñas MD [address] [place] [address] Acute bilateral low back pain, unspecified whether [...] Office Visit [facility] MEDICINE [address] [place] [phone] Jessi Dueñas MD [address] [place], [place] [phone] 09/02/2024 8:00 AM EDT Office Visit [facility] ADULT DENTAL [address] [place], [place] [phone] Fuentes Hurley DDS [address] [place], [place] [phone] documented as of this encounter Visit Diagnoses Diagnosis Acute bilateral low back pain, unspecified whether sciatica present- Primary Hematoma of left knee region Sprain of left medial ankle joint, subsequent encounter documented in this encounter Additional Health Concerns Assessment Noted Time PHQ-9 Depression Total Score: 19 023 2:59 PM EST documented as of this encounter Care Teams Cable Reeler Relationship Specialty Start Date End Date Jessi Dueñas MD [address] [place], [place] [phone] PCP - General Family Medicine 11/24/20 Mikayla Bhagat Coordinator Integrated MarketingFixed Wing Aircraft Flight Engineer 05/09/23 documented as of this encounter
--- OUTSIDE RECORDS SUMMARY | 2024-07-23 17:44 | XMS_ITS | Encounter Summary ---
Author Organization [employer] Address [address] 7[address] [place] [address] Care Team Providers Care Seafood Harvester Name Role Phone Jessi Dueñas MD Primary Care Provider [phone] Encounter Details Date Type Department Care Team ([facility] st Contact Info) Description 09/22/2023 Orders Only [facility] MEDICINE [address] [place] [address] Jessi Dueñas MD [address] [place] [address] Social History Tobacco Use Types Packs/Day Years [...] 07/26/2024 9:45 AM EDT Office Visit [facility] MEDICINE [address] [place] [address] Jessi Dueñas MD [address] [place] [address] 09/02/2024 8:00 AM EDT Office Visit [facility] ADULT DENTAL [address] [place] [address] Fuentes Hurley DDS [address] [place] [address] documented as of this encounter Visit Diagnoses Not on filedocumented in this encounter Additional Health Concerns Assessment Noted Time PHQ-9 Depression Total Score: 8 09/19/19 24 11:07 AM EDT documented as of this encounter Care Teams Seafood Harvester Relationship Specialty Start Date End Date Jessi Dueñas MD [address] [place] [address] PCP - General Family Medicine 11/24/20 Mikayla Bhagat Bond ClerkEmployment Adjudicator 05/09/23 documented as of this encounter
--- OUTSIDE RECORDS SUMMARY | 2024-07-23 17:44 | XMS_ITS | Encounter Summary ---
Author Organization [employer] Address [address] [place] [address] Care Team Providers Care Fan Mail Clerk Name Role Phone Jessi Dueñas MD Primary Care Provider [phone] Reason for Visit * Reason Onset Date Comments Med Refill Tramadol refill denied 10/25/2023 Encounter Details Date Type Department Care Team (Late st Contact Info) Description 10/25/2023 Refill [facility] MEDICINE [address] [place] [address] Jessi Dueñas MD [address] [place] [address] Fibromyalgia Social History Tobacco Use Types Packs/Day [...] call her, when I get back from [place] and we can review this. Thank you! TC via P/I#[id number], unable to connect to the number, unable to leave message. Will forward message to PCP's M.A. to schedule a telephone appointment for patient as PCP requested. documented in this encounter Plan of Treatment Upcoming Encounters Date Type Department Care Team (Late st Contact Info) Description 07/26/2024 9:45 AM EDT Office Visit [facility] MEDICINE [address] [place] [address] Jessi Dueñas MD [address] [place] [address] 09/02/2024 8:00 AM EDT Office Visit [facility] ADULT DENTAL [address] [place] [address] Fuentes Hurley DDS [address] [place] [address] documented as of this encounter Visit Diagnoses Diagnosis Fibromyalgia Unspecified myalgia and myositis documented in this encounter Additional Health Concerns Assessment Noted Time PHQ-9 Depression Total Score: 8 09/19/19 24 11:07 AM EDT documented as of this encounter Care Teams Fan Mail Clerk Relationship Specialty Start Date End Date Jessi Dueñas MD [address] [place] [address] PCP - General Family Medicine 11/24/20 Mikayla Bhagat Inorganic Chemical TechnicianMotor Equipment Commanding Officer 05/09/23 documented as of this encounter
--- OUTSIDE RECORDS SUMMARY | 2024-07-23 17:44 | XMS_ITS | Encounter Summary ---
Author Organization [employer] Address [address] [facility] [address] [place] [address] Care Team Providers Care Forest Engineer Name Role Phone Jessi Dueñas MD Primary Care Provider [phone] Reason for Visit * Reason Onset Date Comments Nurse Triage 02/07/2023 Encounter Details Date Type Department Care Team (Late st Contact Info) Description 02/07/2023 Telephone [facility] MEDICINE [address] [place] [address] Jessi Dueñas MD [address] [place] [address] Nurse Triage Social History Tobacco Use Types [...] 02/07/2023 11:26 AM EST Triage call with [employer] [place] [id number] Pt reports ED visit @ [facility] 02/06/23 for abdominal pain and migraines. Report is requested from [facility] clinical care manager cna. Pt reports was supposed to be getting [...] lower back pain states she went to [facility] last on 02/06 and did nothing. Patient speaks american documented in this encounter Plan of Treatment Upcoming Encounters Date Type Department Care Team (Late st Contact Info) Description 07/26/2024 9:45 AM EDT Office Visit [facility] MEDICINE [address] [place] [address] Jessi Dueñas MD [address] [place] [address] 09/02/2024 8:00 AM EDT Office Visit [facility] ADULT DENTAL [address] [place] [address] Fuentes Hurley DDS [address] [place] [address] documented as of this encounter Visit Diagnoses Not on filedocumented in this encounter Additional Health Concerns Assessment Noted Time PHQ-9 Depression Total Score: 20 023 9:49 AM EDT documented as of this encounter Care Teams Forest Engineer Relationship Specialty Start Date End Date Jessi Dueñas MD [address] [place] [address] PCP - General Family Medicine 11/24/20 Mikayla Bhagat Basket MenderCity Clerk 05/09/23 documented as of this encounter
== END 2024-07-23 13:46 | disposition home or self-care (01) ==
LOC: HO.LAB 13:45
PROVIDERS: PCP General Practice; Visit Provider Obstetrics & Gynecology
DX: I10 Essential (primary) hypertension (principal)
CPT/HCPCS: 82565; 84520; 87626; 88175; 99212

== ENCOUNTER 2024-07-23 13:45 | Outpatient (AMB) | payer MEDICAID, SELFPAY ==
[2024-07-23 14:29] VITALS: BMI 18.2
--- NOTE | 2024-07-23 14:29 | A.OFFVIS_ITS ---
Vital Signs 07/23/24 14:29 Height 5 ft 7 in Weight 116 lb BMI 18.2 Intake Visit Reasons: EMB results/Urine dip/Co-testing Cherry Dipper Required: Yes Cherry Dipper Language: Clerical Production Worker Services: Cherry Dipper Present (in person) Cherry Dipper Name: Umu DA SILVA Information Interpreted: non-clinical & clinical Photo Offset Printer: Photo Offset Printer Present (Umu DA SILVA) Accompanied by: Self / Same As Patient Allergies cephalexin [From Keflex] Allergy (Intermediate, Verified 07/23/24 14:30) Eye Swelling morphine Allergy (Intermediate, Verified 07/23/24 14:30) Itching shellfish derived [SHELLFISH DERIVED] Allergy (Intermediate, Verified 07/23/24 14:30) swelling Is last menstrual period known: No (mirena) HPI Comments Details: The patient is presenting for follow-up to discuss the results of her abnormal uterine bleeding workup and co testing and IUD check. Abnormal uterine bleeding has improved markedly. The following workup was done.: H&H= 12.1/35.9 TSH, hCG, GC and chlamydia were negative. Endometrial biopsy pathology showed the following: Benign endometrium with chronic endometritis, atrophic glands, focal necrosis and calcifications, and decidual stromal change, consistent with progestin effect; no atypia or carcinoma Co testing was done was negative. Mammogram schedule for 09/25. Pelvic ultrasound was discussed last visit, follow-up ultrasound scheduled in few weeks Mirena IUD inserted last visit [facility] Medical History Diarrhea C. difficile colitis Asthma GERD (gastroesophageal reflux disease) Bipolar disorder Anxiety and depression Constipation Diarrhea Surgical History History of esophagogastroduodenoscopy (EGD) H/O colonoscopy History of tubal ligation History of section Family History Family/Other Cancer Other Family history of arthritis Social History Alcohol intake: never Patient Tobacco Use Status: Former Tobacco user Tobacco use type: Cigarette Substance Use Type: Marijuana Female Reproductive History Menstrual Age of Menarche: 17 Review of Systems Const All systems reviewed & are unremarkable except as noted in HPI and below Reports as per HPI and Reports no additional complaints GI Reports no additional complaints Reports no additional complaints Physical Exam Vital Signs: BMI result Body Mass Index 18.2 Assessment & Plan Assessment & Plan (1) Abnormal uterine bleeding (AUB): Code(s): N93.9 - Abnormal uterine and vaginal bleeding, unspecified Category: Medical Plan: Co testing done Bleeding has improved on Mirena IUD. Instructions given to the patient to call in case of recurrence of her abnormal uterine bleeding. All questions answered, the patient verbalized understand (2) IUD check up: Code(s): Z30.431 - Encounter for routine checking of intrauterine contraceptive device Category: Medical Plan: UPT done in the office was negative. Discussed with the patient the finding on physical exam, IUD string in place, the patient was reassured. Instructions given to patient to call in case of temperature above 100.4, severe cramping/pelvic pain, abnormal discharge or abnormal uterine bleeding or if she misses her menstrual cycle. Otherwise follow-up at her annual exam appointment. All questions answered, the patient verbalized understanding. (3) Microscopic hematuria: Code(s): R31.29 - Other microscopic hematuria Category: Medical Plan: Repeat urine dip showed persistent microscopic hematuria, will proceed with CT scan and urology referral. All questions answered, the patient verbalized understanding. Instructed the patient to call our office back in case a referral appointment is not scheduled, missed or canceled so that we will assist on rescheduling another appointment, the patient verbalized understanding agreed with the plan. Instructed the patient to call our office back in case a referral appointment is not scheduled, missed or canceled so that we will assist on rescheduling another appointment, the patient verbalized understanding agreed with the plan. Orders: Orders CT abdomen pelvis wo/w IV con Today R31.29 - Other microscopic hematuria Referrals Urology Referral R31.29 - Other microscopic hematuria Coding Level of Care Code Est Pt Level 3 (53257) Diagnoses Abnormal uterine bleeding (AUB) N93.9 IUD check up Z30.431 Microscopic hematuria R31.29
--- OUTSIDE RECORDS SUMMARY | 2024-07-23 16:22 | XMS_ITS | Encounter Summary ---
Author Organization [employer] Address [address] [facility] 7 [place] [address] Care Team Providers Care Geological Survey Field Assistant Name Role Phone Jessi Dueñas MD Primary Care Provider [phone] Reason for Visit * Reason Comments Med Refill Encounter Details Date Type Department Care Team ([facility] st Contact Info) Description 10/25/2023 Refill [facility]INE [address] [place] [address] Anita Arriaga MD [address] [place] [address] Social History Tobacco Use Types Packs/Day Years [...] 9:45 AM EDT Office Visit [facility] MEDICINE [address] [place] [address] Jessi Dueñas MD [address] [place] [address] 09/02/2024 8:00 AM EDT Office Visit [facility] ADULT DENTAL [address] [place] [address] Fuentes Hurley DDS [address] [place] [address] documented as of this encounter Visit Diagnoses Not on filedocumented in this encounter Additional Health Concerns Assessment Noted Time PHQ-9 Depression Total Score: 8 09/19/19 24 11:07 AM EDT documented as of this encounter Care Teams Geological Survey Field Assistant Relationship Specialty Start Date End Date Jessi Dueñas MD [address] [place] [address] PCP - General Family Medicine 11/24/20 Mikayla Bhagat Set And Exhibit DesignerMeeting Specialist 05/09/23 documented as of this encounter
--- OUTSIDE RECORDS SUMMARY | 2024-07-23 16:22 | XMS_ITS | Encounter Summary ---
Author Organization [employer] Address [address] [facility] [facility] [address] 7t [place] [address] Care Team Providers Care Management Lecturer Name Role Phone Jessi Dueñas MD Primary Care Provider Encounter Details Date Type Department Care Team ([facility] st Contact Info) Description 09/22/2023 Orders Only [facility] MEDICINE [address] [place] [address] Jessi Dueñas MD [address] [place] [address] Social History Tobacco Use Types Packs/Day Years [...] Description 07/26/2024 9:45 AM EDT Office Visit [facility] MEDICINE [address] [place] [address] Jessi Dueñas MD [address] [place] [address] 09/02/2024 8:00 AM EDT Office Visit [facility] ADULT DENTAL [address] [place] [address] Fuentes Hurley DDS [address] [place] [address] documented as of this encounter Visit Diagnoses Not on filedocumented in this encounter Additional Health Concerns Assessment Noted Time PHQ-9 Depression Total Score: 8 09/19/19 24 11:07 AM EDT documented as of this encounter Care Teams Management Lecturer Relationship Specialty Start Date End Date Jessi Dueñas MD [address] [place] [address] PCP - General Family Medicine 11/24/20 Mikayla Bhagat Urban Redevelopment SpecialistViscose Cellar Charge Hand 05/09/23 documented as of this encounter
--- OUTSIDE RECORDS SUMMARY | 2024-07-23 16:22 | XMS_ITS | Encounter Summary ---
Author Organization [employer] Address [address] [facility] 7t [place] [address] Care Team Providers Care Detention Worker Name Role Phone Jessi Dueñas MD Primary Care Provider [phone] Reason for Referral * Consultation (Routine) - Closed Specialty Diagnoses / Procedures Referred By Contac t Referred To Contact Physical Therapy Diagnoses Acute bilateral low back pain without sciatica Chronic pain of both knees Bilateral hand pain Jessi Dueñas MD [address] [place] [address] Phone: tel: fax: [facility] [address] Phone: tel: fax: Referral ID Status Reason Start Date Expiration Date V isits Requested Visits Authorized [id number] Closed Specialty Services Required 04/17/2024 04/17/2025 20 20 Encounter Details Date Type Department Care Team (Late st Contact Info) Description 04/17/2024 Orders Only [facility] MEDICINE [address] [place] [address] Jessi Dueñas MD [address] [place], [place] Acute bilateral low back pain without sciatica [...] [facility] MEDICINE [address] [place] [address] Jessi Dueñas MD [address] [place] [address] 09/02/2024 8:00 AM EDT Office Visit [facility] ADULT DENTAL [address] [place] [address] Fuentes Hurley DDS [address] [place] [address] Scheduled Referrals Name Type Priority Associated Diagnoses [...] documented as of this encounter Care Teams Detention Worker Relationship Specialty Start Date End Date Jessi Dueñas MD [address] [place] [address] PCP - General Family Medicine 11/24/20 Mikayla Bhagat Industrial Conveyor Belt RepairerOpen Hearth Melter 05/09/23 documented as of this encounter
--- OUTSIDE RECORDS SUMMARY | 2024-07-23 16:22 | XMS_ITS | Encounter Summary ---
Author Organization [employer] Address [address] [facility] [address] 7t [place] [address] Care Team Providers Care Math Specialist Name Role Phone Jessi Dueñas MD Primary Care Provider [phone] Encounter Details Date Type Department Care Team (Late st Contact Info) Description 06/14/2024 Orders Only [facility] MEDICINE [address] [place] [address] Jessi Dueñas MD [address] [place] [address] Restless leg syndrome Social History Tobacco Use [...] Office Visit [facility] MEDICINE [address] [place] [address] Jessi Dueñas MD [address] [place] [address] 09/02/2024 8:00 AM EDT Office Visit [facility] ADULT DENTAL [address] [place] [address] Fuentes Hurley DDS [address] [place] [address] documented as of this encounter Visit Diagnoses Diagnosis Restless leg syndrome Restless legs syndrome (RLS) documented in this encounter Additional Health Concerns Assessment Noted Time PHQ-9 Depression Total Score: 8 09/19/19 24 11:07 AM EDT documented as of this encounter Care Teams Math Specialist Relationship Specialty Start Date End Date Jessi Dueñas MD [address] [place] [address] PCP - General Family Medicine 11/24/20 Mikayla Bhagat Corporate Banking OfficerSole Cutter 05/09/23 documented as of this encounter
--- OUTSIDE RECORDS SUMMARY | 2024-07-23 16:22 | XMS_ITS | Encounter Summary ---
Author Organization [employer] Address [address] [facility] [address] [place] [address] Care Team Providers Care Packaging Sales Representative Name Role Phone Jessi Dueñas MD Primary Care Provider [phone] Reason for Visit * Reason Onset Date Comments Call Back Request 01/23/2024 Encounter Details Date Type Department Care Team ([facility] st Contact Info) Description 01/23/2024 Telephone [facility] MEDICINE [address] [place] [address] Jessi Dueñas MD [address] [place] [address] Call Back Request Social History Tobacco Use [...] no scripts sent. Please contact pt at [phone]. (Lao Speaker) documented in this encounter Plan of Treatment Upcoming Encounters Date Type Department Care Team (Late st Contact Info) Description 07/26/2024 9:45 AM EDT Office Visit [facility]INE [address] [place] [address] Jessi Dueñas MD [address] [place] [address] 09/02/2024 8:00 AM EDT Office Visit [facility] ADULT DENTAL [address] [place] [address] Fuentes Hurley DDS [address] [place] [address] documented as of this encounter Visit Diagnoses Not on filedocumented in this encounter Additional Health Concerns Assessment Noted Time PHQ-9 Depression Total Score: 8 09/19/19 24 11:07 AM EDT documented as of this encounter Care Teams Packaging Sales Representative Relationship Specialty Start Date End Date Jessi Dueñas MD [address] [place] [address] PCP - General Family Medicine 11/24/20 Mikayla Bhagat Dyed Yarn OperatorMechanical Design Engineer Facilities 05/09/23 documented as of this encounter
--- OUTSIDE RECORDS SUMMARY | 2024-07-23 16:22 | XMS_ITS | Encounter Summary ---
Author Organization [employer] Address [address] [facility] [address] 7t [place] [address] Care Team Providers Care Rn Clinical Coordinator Name Role Phone Jessi Dueñas MD Primary Care Provider [phone] Encounter Details Date Type Department Care Team (Late st Contact Info) Description 03/29/2022 Orders Only [facility] MEDICINE [address] [place] [address] Jessi Dueñas MD [address] [place] [address] Choking episode occurring at night (Primary Dx) [...] EDT Office Visit [facility] MEDICINE [address] [place] [phone] Jessi Dueñas MD 230 [place] [address] 09/02/2024 8:00 AM EDT Office Visit [facility] ADULT DENTAL [address] [place], [place] [phone] Fuentes Hurley DDS [address] [place], [place] [phone] documented as of this encounter Visit Diagnoses Diagnosis Choking episode occurring at night- Primary documented in this encounter Care Teams Rn Clinical Coordinator Relationship Specialty Start Date End Date Jessi Dueñas MD 230 [place], [place] [phone] PCP - General Family Medicine 11/24/20 Mikayla Bhagat Mental Health PractitionerInlayer 05/09/23 documented as of this encounter
--- OUTSIDE RECORDS SUMMARY | 2024-07-23 16:22 | XMS_ITS | Encounter Summary ---
Author Organization [employer] Address [address] [place] [address] Care Team Providers Care Accounting Technician Name Role Phone Jessi Dueñas MD Primary Care Provider [phone] Reason for Visit * Reason Comments Med Refill Encounter Details Date Type Department Care Team ([facility] st Contact Info) Description 11/23/2023 Refill [facility] [address] [place] [address] Jessi Dueñas MD [address] [place] [address] Social History Tobacco Use Types Packs/Day Years [...] 9:45 AM EDT Office Visit [facility] [address] [place] [address] Jessi Dueñas MD [address] [place] [address] 09/02/2024 8:00 AM EDT Office Visit [facility] ADULT DENTAL [address] [place] [address] Fuentes Hurley DDS [address] [place] [address] documented as of this encounter Visit Diagnoses Not on filedocumented in this encounter Additional Health Concerns Assessment Noted Time PHQ-9 Depression Total Score: 8 09/19/19 24 11:07 AM EDT documented as of this encounter Care Teams Accounting Technician Relationship Specialty Start Date End Date Jessi Dueñas MD [address] [place] [id number] PCP - General Family Medicine 11/24/20 Mikayla Bhagat Supervisor [employer] Supervisor 05/09/23 documented as of this encounter
--- OUTSIDE RECORDS SUMMARY | 2024-07-23 16:22 | XMS_ITS | Clinical Summary ---
Author Organization [employer] Address [address] [facility] [place] [address] Care Team Providers Care Director Public Name Role Phone Jessi Dueñas MD Primary Care Provider [phone] Allergies Active Allergy Reactions Criticality Noted Date [...] For appetite 180 tablet 3 08/21/19 24 05/15/2 025 Active imipramine (Tofranil) 50 MG tablet [...] day. 90 tablet 3 04/09/19 25 Active fluticasone (Flonase) 50 MCG/ACT [...] days. 56 tablet 07/03/19 25 025 Active hydrocortisone 2.5 % cream APPLY TOPICALLY TO THE AFFECTED AREA(S) RECTALLY EVERY DAY 60 g 1 04/07/20 25 Active amoxicillin-cla vulanate (Augmentin) 875-125 MG tablet Take 1 tablet by mouth 2 times daily for 7 days. 14 tablet 07/19/19 25 025 Active acetaminophen (Tylenol 8 Hour) 650 MG ER tablet Take 1 tablet (650 mg) by mouth every 8 (eight) hours if needed for moderate pain for up to 10 days. Do not crush, chew, or split. 15 tablet 07/19/19 25 025 Active ibuprofen 800 MG tablet Take 1 tablet (800 mg) by mouth every 8 (eight) hours if needed for mild pain for up to 10 days. 15 tablet 07/19/19 25 025 Active hydrocortisone 2.5 % cream Apply around the rectum 60 g 1 04/09/19 25 Discontinued traMADol (Ultram) 50 MG tabletIndicatio ns:Fibromyalgia Take 1 tablet (50 mg) by mouth every 12 (twelve) hours if needed for severe pain for up to 28 days. 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 Labs showed low [...] & Plan (10/06/2023 12:39 PM EDT): From assistant operations manager last apt 09/2023 Labs showed low [...] & Plan (09/19/2023 6:11 PM EDT): From assistant operations manager last apt 09/2023 Labs showed low [...] has already asked an agency to do REGIONAL 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 MANAGER evaluation To go to medical records [...] 10:31 AM EST): Plan to see [facility] rheumatology in June 2023, JUANITO + , [...] PM EST): Will send referral to [facility] rheumatology, JUANITO + , whole body pain, fatigue, all worse after two episodes of C diff Still likely fibromyalgia Recommend avoidance of marijuana and cocaine, drugs purchased on the street Assessment & Plan (01/04/2023 7:56 PM EDT): Will send referral to [facility] rheumatology, JUANITO + , whole body pain, [...] aware of side effects, somnolence, 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 Neck pain 10/27/2022 Post [...] Plan (02/20/2023 12:56 PM EST): Call [facility] to get appointment at their [facility] clinic Polyarthralgia 03/10/2022 Myopia of both eyes [...] Encounters Date Type Department Care Team Description 07/18/2024 1:00 PM EDT Office Visit [facility] [address] [place] [address] Kenisha Estevez DDS Dental caries (Primary Dx) 07/06/2024 Refill [facility] MED[facility] [address] [place] [address] Jessi Dueñas MD 07/04/2024 Orders Only GENERIC EXTERNAL DATA DEPARTMENT Provider, Generic External Data 07/02/2024 Orders Only [facility] External Provider, [facility] 07/02/2024 Refill [facility] [address] [place] [address] Jessi Dueñas MD Fibromyalgia 06/27/2024 Telephone [facility] [address] [place] [address] Jessi Dueñas MD DME from Rahul 06/19/2024 Orders Only GENERIC EXTERNAL DATA DEPARTMENT Provider, Generic External Data 06/18/2024 3:20 PM EDT Office Visit [facility] [address] [place] [address] Ignacio Rivera MD Akathisia (Primary Dx) 06/18/2024 Patient Outreach [facility] [address] [place] [address] Jessi Dueñas MD Care Coordination ([address] telephone call outreach) 06/17/2024 Telephone [facility] [address] [place] [address] Jessi Dueñas MD LETTER 06/14/2024 Orders Only [facility] [address] [place] [address] Jessi Dueñas MD Restless leg syndrome 06/14/2024 Population Health Risk Score [facility] (C3) Department [address] [place] [phone] Provider, Population Health Generic 06/12/2024 Telephone [facility] [address] [place] [address] Jessi Dueñas MD Medication Question; Med Refill 06/08/2024 Refill [facility] [address] [place] [address] Jessi Dueñas MD 06/03/2024 Refill [facility] [address] [place] [address] Jessi Dueñas MD Fibromyalgia 05/30/2024 Patient Outreach [facility] [address] [place] [phone] Jessi Dueñas MD Care Coordination ([address] [facility] telephone call outreach) 05/30/2024 Orders Only [facility] External Provider, [facility] 05/29/2024 Patient Outreach [facility] [address] [place] [address] Jessi Dueñas MD Transition Of Care (Tcm) (ED visit requested) 05/29/2024 Telephone [facility] [address] [place] [phone] Jessi Dueñas MD Med Refill 05/29/2024 Refill [facility] [address] [place] [phone] Jessi Dueñas MD Fibromyalgia 05/28/2024 Patient Outreach [address] [address] Jessi Dueñas MD Transition Of Care (Tcm) (ERRORr) 05/27/2024 Patient Outreach [address] [address] Jessi Dueñas MD Care Coordination ([facility] telephone call outreach /) 05/27/2024 Patient Outreach [address] [address] Jessi Dueñas MD Care Coordination ([facility] telephone call outreach) 05/27/[address] [address] Jessi Dueñas MD Care Management (C3- chart review) 05/25/2024 9:40 AM EST Office Visit [facility] [address] [place] [phone] Ignacio Rivera MD Diarrhea, unspecified type (Primary Dx); Nausea and vomiting, unspecified vomiting type 05/25/2024 Orders Only GENERIC EXTERNAL DATA DEPARTMENT Provider, Generic External Data 05/17/2024 11:00 AM EST Office Visit [address] [address] Jessi Dueñas MD Weight loss of more than 10% body weight (Primary Dx); Post concussion syndrome; Gastroesophageal reflux disease without esophagitis; Bipolar affective disorder, currently depressed, moderate ([facility]); Fibromyalgia 05/17/2024 Orders Only GENERIC EXTERNAL DATA DEPARTMENT Provider, Generic External Data 05/17/2024 Travel 05/13/[address] [address] Jessi Dueñas MD Cignifi (Disposable Underpad/Chux Large) 05/12/[address] [address] Jessi Dueñas MD Allergic rhinitis, unspecified seasonality, unspecified trigger 05/02/[address] [address] Jessi Dueñas MD [employer] (Disposable underpad, large/1 unit = each, 248 per mo.) 04/29/2024 Refill [facility] [address] [place] [address] Jessi Dueñas MD Fibromyalgia from Last 3 [...] Sign Reading Time Taken Comments Blood Pressure 110/78 07/18/2024 1:00 PM EDT Pulse 101 06/18/2024 3:12 PM [...] Visit [facility] [address] [place] [address] Jessi Dueñas MD [address] [place] [address] 09/02/2024 8:00 AM EDT Office Visit [facility] [address] [place] [address] Fuentes Hurley, DDS [address] [place] [address] Health Maintenance Due Date Last Done Comments Dental Oral Exam 1980 Dental Prophylaxis 1980 Dental X-Ray: Full Mouth 1982 Alcohol/Substance Use Screening 1994 Hepatitis B Vaccines [...] 09/19/2023, 09/19/19 Family Planning (PISQ) 05/20/2025 05/20/2024 SDOH Screening 05/27/2025 05/27/2024 Tobacco Screening 07/18/2025 07/18/2024 Dental X-Ray: Bitewings 07/19/2025 07/18/2024 Mammogram 09/27/2025 09/28/2023 Cervical Cancer Screening 02/22/2026 [...] Procedure Name Priority Date/Time Associated Diagnosis Comments CASE PRESENTATION, DETAILED AND EXTENSIVE TREATMENT PLANNING Routine 07/18/2024 1:00 PM EDT BITEWING - SINGLE RADIOGRAPHIC IMAGE Routine 07/18/2024 1:00 PM EDT INTRAORAL - PERIAPICAL FIRST RADIOGRAPHIC IMAGE Routine 07/18/2024 1:00 PM EDT PALLIATIVE (EMERGENCY) TREATMENT OF DENTAL PAIN - MINOR PROCEDURE Routine 07/18/2024 1:00 PM EDT HCG, TOTAL, QN Routine 07/04/2024 9:28 AM EDT TSH W/REFLEX TO FT4 Routine 07/04/2024 9 :28 AM EDT CBC Routine 07/04/2024 9:28 AM EDT HEMATOXYLIN AND EOSIN STAIN Routine 07/04/2024 9:04 AM EDT CULTURE, URINE, ROUTINE Routine 07/04/2024 8:18 AM EDT US PELVIS TRANSVAGINAL Routine 1:10 PM EDT [...] HEPATIC FUNCTION PANEL Routine 9:40 AM EST BI MAMMOGRAM SCREENING TOMOSYNTHESIS BILATERAL Routine 09/28/2023 12:08 PM EDT Breast cancer screening by mammogram HPV MRNA E6/E7 REFLEX TO HPV 16, 18/45 Routine 02/22/2021 12:00 AM EST THINPREP IMAGING SYSTEM PAP Routine 02/22/2021 12:00 AM EST from Last 3 Months or Most Recently Relevant to Health Maintenance Results * TSH with Reflex to Free T4 (07/04/2024 9:28 AM EDT) Only the most recent of2 resultswithin the time period is included. TSH reflex Free T4 1.05 0.32 - 4.0 uIU/mL [facility] 07/04/2024 9:28 AM EDT 07/04/2024 9:28 AM EDT us Generic External Data Provider LAB BLOOD ORDERAB LES Final Result [facility] [address] [place] [phone] * (ABNORMAL) CBC (07/04/2024 9:28 AM EDT) White Blood Count 7.5 4.8 - 10.8 X10*3/uL [facility] Red Blood Count 3.84(L) 4.20 - 5.50 X10*6/uL [facility] Hemoglobin 12.1 12.0 - 16.0 g/dl [facility] Hematocrit 35.9(L) 37.0 - 47.0 % [facility] Mean Corpuscular Volume 93.5 80.0 - 98.0 fL [facility] Mean Corpuscular Hemoglobin 31.5 27.0 - 33.0 pg [facility] Mean Corpuscular HGB Conc 33.7 31.0 - 35.0 g/dl [facility] Red Cell Distribution Width 12.9 11.0 - 16.0 % [facility] Platelet Count 273 160 - 400 X10*3/uL [facility] Mean Platelet Volume 10.2 9.4 - 12.3 fL [facility] NRBC Pct Auto 0.0 0.0 - 0.2 /100WBC [facility] NRBC Abs Auto 0.000 0.0 - 0.012 X10*3/uL [facility] 07/04/2024 9:28 AM EDT 07/04/2024 9:28 AM EDT us Generic External Data Provider LAB BLOOD ORDERAB LES Final Result [facility] [address] [place] [phone] * hCG, Total, Quantitative (07/04/2024 9:28 AM EDT) Only the most recent of2 resultswithin the time period is included. HCG Quantitative <2 mIU/mL [facility] Comment:Weeks post LMP Appro ximate hCG(Last Menstrual Period) Range (mIU/ml)3 - 4 weeks 9 - 1304 - 5 weeks 75 - 2,6005 - 6 weeks 850 - 20,8006 - 7 weeks 4000 - 100,2007 - 12 weeks 11,500 - 289,72579 - 16 weeks 18,300 - 137,98541 - 29 weeks (2nd trimester) 1,400 - 53,06127 - 41 weeks (3rd trimester) 940 - 60,000The Boyer B- hCG assay is used for the early detection ofpregnancy; it cannot be used to diagnose any conditionunrelated to . If a B-hCG level is not supportedby the clinical evidence, results should be confirmed by analternative method (qualitative urine hCG, for example). 07/04/2024 9:28 AM EDT 07/04/2024 9:28 AM EDT us Generic External Data Provider LAB BLOOD ORDERAB LES Final Result [facility] [address] [place] [phone] * Hematoxylin and Eosin Stain (07/04/2024 9:04 AM EDT) 07/04/2024 9:04 AM EDT 07/05/2024 6:20 AM EDT Narrative [facility] - 07/08/2024 11:33 AM EDT ----- ------- Name: Kera Armstrong ? Age/Sex: 43/F ? : 1980 Unit#: [id number] ?? Attend Dr: Harjit Parada MD ?Re07/04/24 ?Status: DEP REF ? Location: HO.LNP ?Disch: ? ----- ------- SPEC : [id number] ? RECD: 07/05/24 ? STATUS: ??SOUT ? REQ NUM: [id number] ? BRUCE: 07/04/24 ? SUBM DR: Harjit Parada MD ? ENTERED: ??07/05/24 ?SP TYPE: Surgical ? OTHR DR: Jessi Dueñas ? ORDERED: ??HE Stain/2, Gross Micro L4 ? Diagnosis ?? Endometrium, biopsy: ??Benign endometrium with chronic endometritis, atrophic glands, ?? focal necrosis and calcifications, and decidual stromal change, consistent with progestin ?? effect; no atypia or carcinoma. ?Clinical History AUB ?Microscopic Description Microscopic sections reviewed. ? Material Received ?? EMB ? Gross Description Received in formalin labeled ?EMB? are fragments of pink-gordon soft tissue mixed with mucus and clotted blood forming an aggregate measuring 1.8 x 1.6 x 0.3 cm which is wrapped in lens paper and entirely submitted for microscopic examination, multiple pieces in cassette A. ([facility]) Copies To: ?? Jessi Dueñas ?? [address] ?? [place] [address] ?? [phone] ?? Harjit Parada MD ?? [facility] Women's Services ?? [address] ?? [place] [address] ?? [phone] ----- ------- Signed (signature on file) Sherry Almanzar 07/08/24 1133 ? ----- ------- ? END OF REPORT ? Generic External Data Provider LAB BLOOD ORDERAB LES Final Result Performing Organization Address [facility] de Phone Number [facility] [address] [place] [phone] * Culture, Urine, Routine (07/04/2024 8:18 AM EDT) Urine Urine specimen obtained by clean catch procedure / Unknown 07/04/2024 8:18 AM EDT 07/04/2024 3:38 PM EDT Comment:UACC Narrative [facility] - 07/06/2024 12:41 PM EDT Urine Culture Report Result Urine Culture < 10,000 cfu/ml Specimen Source: Urine clean catch Generic External Data Provider LAB MICROBIOLOGY - GENERAL ORDERABLES Final Result Performing Organization Address [facility] Co de Phone Number [facility] [address] [place] [phone] * US Pelvis Transvaginal (07/02/2024 1:10 PM EDT) Anatomical Region Laterality Modality Pelvis Ultrasound 07/02/2024 1:10 PM EDT Narrative 07/03/2024 7:10 AM EDT ? [facility] ?[address] ? [place] [address] ? Ultrasound Report ? Signed ? Patient: Kera Armstrong ?MR#: MM ?? [id number] ? : 1980 ?Acct:[id number] ? Age/Sex: 43 / F ?ADM Date: 07/02/24 ? Loc: HO.HMGCX ? Attending Dr: Lindsey Zuñiga CNM ? Ordering Physician: Lindsey Zuñiga CNM ?? Date of Service: 07/02/24 ?? Procedure(s): US pelvic and transvaginal ?? Accession Number(s): [id number] ? cc: Jessi Dueñas; Lindsey Zuñiga CNM [...] and echotexture. ? Pelvic fluid: none. ? US/ pelvic and transvaginal ?? IMPRESSION: ? 1. [...] signed by Everett Rich MD in OV> ?07/03/24707 ? DD/ 1310 ? TD/TT: 07/02/24 1335 ? Sports Announcer: ? Procedure Note Doncelsoter, Image - 07/03/2024 [facility] [address] [place] [address] [place] [address] Ultrasound Report Signed Patient: Kera ArmstrongMR#: [id number] : 1980Acct:[id number] Age/Sex: 43 / FADM Date: 07/02/24 Loc: HO.HMGCX Attending Dr: Lindsey Zuñiga CNM Ordering Physician: Lindsey Zuñiga CNM Date of Service: 07/02/24 Procedure(s): US pelvic and transvaginal Accession Number(s): [id number] cc: Jessi Dueñas; Lindsey Zuñiga CNM EXAMINATION: [...] 0708 DD/ 1310 TD/TT: 07/02/24 1335 Sports Announcer: [facility] External Provider IMG US PROCEDURES Edited Result - Final * (ABNORMAL) Bacterial Vaginosis (06/19/2024 12:00 AM EDT) TRICHOMONAS VAGINALIS DETECTION BY PCR NOT DETECTED Not Detect [facility] BACTERIAL VAGINOSIS DETECTION BY PCR POSITIVE(A) Negative [facility] Comment:The BV organism targ ets [...] DETECTION BY PCR NOT DETECTED Not Detect [facility] Latanya glab krusei PCR NOT DETECTED Not Detect [facility] 06/19/2024 06/19/2024 us Generic External Data Provider LAB MICROBIOLOGY - GENERAL ORDERABLES Final Result [facility] [address] [place] [phone] [phone] * Chlamydia/N. Gonorrhoeae RNA, TMA, Urogenitial (06/19/2024 12:00 AM EDT) CT PCR NOT DETECTED Not Detect. [facility] Comment:A not detected test result [...] psychologicalconsequences. NG PCR NOT DETECTED Not Detect. [facility] Comment:A not detected test result [...] medical, social or psychologicalconsequences. 06/19/2024 06/19/2024 Narrative [facility] - 06/20/2024 3:48 AM EDT Vaginal us Generic External Data Provider LAB MICROBIOLOGY - GENERAL ORDERABLES Final Result [facility] [address] [facility] [place] [phone] * MR MRCP (05/30/2024 7:29 AM EST) Anatomical Region Laterality Modality Lower Extremities Left Magnetic Reson ance 05/30/2024 7:29 AM EST Narrative 05/30/2024 8:24 AM EST ? [facility] ?[address] ?[place] [address] ? Magnetic Resonance Report ? Signed ? Patient: Kera Armstrong ?MR#: MM ?? [id number] ? : 1980 ?Acct:[id number] ? Age/Sex: 43 / F ?ADM Date: 05/30/24 ? Loc: HO.MRI ? Attending Dr: Ashley MILNER-BC ? Ordering Physician: Ashley Duncan ?? Date of Service: 05/30/24 ?? Procedure(s): MR MRCP ?? Accession Number(s): [id number] ? cc: Jessi Dueñas; Ashley Duncan LAWNMOWER REPAIR MECHANIC-BC ? EXAMINATION: ??MRCP ? HISTORY: R63.4 - [...] ??Everett Rich MD ??05/30/2024 08:21 AM EST ? Dictated By: ?Everett Rich MD ? Signed By: ?<Electronically signed by Everett iRch MD in OV> ?05/30/24 0821 ? DD/ 0729 ? TD/TT: 05/30/24 0805 ? Sports Announcer: ? Procedure Note Cy, Image - 05/30/2024 [place] [address] Magnetic Resonance Report Signed Patient: Kera Armstrong#: [id number] : 1980Acct:[id number] Age/Sex: 43 / FADM Date: 05/30/24 Loc: HO.MRI Attending Dr: Ashley MILNER- Ordering Physician: Ashley Duncan Date of Service: 05/30/24 Procedure(s): MR MRCP Accession Number(s): [id number] cc: Jessi Dueñas; Ashley Duncan EXAMINATION: MRCP [...] 05/30/24 0821 DD/ 0729 TD/TT: 05/30/24 0805 Sports Announcer: [facility] External Provider IMG MRI PROCEDURES Final Result * SARS-CoV-2 RNA, Influenza A/B, and RSV RNA, Ql NAAT (05/25/2024 11:59 PM EST) Influenza A PCR NEGATIVE Negative [facility] Influenza B PCR NEGATIVE Negative [facility] Resp Syncy Virus RNA Qual PCR NEGATIVE Negative [facility] SARS COV2 PCR NEGATIVE Negative [facility] Comment:All test results mus t be [...] use by authorized laboratories.Testing performed on the [email or web address] Application GeneXpert utilizingreal-time RT-PCR.All SARS CoV2 and positive influenza A/B results arereported to [facility]. 05/25/2024 11:5 9 PM EST 05/26/2024 12:02 AM EST us Generic External Data Provider LAB MICROBIOLOGY - GENERAL ORDERABLES Final Result [facility] [address] [place] [phone] * (ABNORMAL) CBC auto differential (05/25/2024 11:59 PM EST) White Blood Count 7.4 4.8 - 10.8 X10*3/uL [facility] Red Blood Count 3.94(L) 4.20 - 5.50 X10*6/uL [facility] Hemoglobin 12.4 12.0 - 16.0 g/dl [facility] Hematocrit 35.1(L) 37.0 - 47.0 % [facility] Mean Corpuscular Volume 89.1 80.0 - 98.0 fL [facility] Mean Corpuscular Hemoglobin 31.5 27.0 - 33.0 pg [facility] Mean Corpuscular HGB Conc 35.3(H) 31.0 - 35.0 g/dl [facility] Red Cell Distribution Width 12.4 11.0 - 16.0 % [facility] Platelet Count 284 160 - 400 X10*3/uL [facility] Mean Platelet Volume 9.2(L) 9.4 - 12.3 fL [facility] Neutrophils Percent Auto 43.6(L) 45 - 73 % [facility] Imm Gran Pct Auto 0.1 0.0 - 0.4 % [facility] Lymphocytes Percent Auto 49.7(H) 20 - 40 % [facility] Monocytes Percent Auto 6.3 2 - 11 % [facility] Eosinophils Percent Auto 0.3 0 - 4 % [facility] Basophils Percent Auto 0.0 0 - 2 % [facility] NRBC Pct Auto 0.0 0.0 - 0.2 /100WBC [facility] Neutrophils Absolute Auto 3.2 2.0 - 8.3 x10*3/uL [facility] Imm Gran Abs Auto 0.01 0.00 - 0.03 X10*3/uL [facility] Lymphocytes Absolute Auto 3.7 1.2 - 4.9 X10*3/uL [facility] Monocytes Absolute Auto 0.5 0.1 - 1.2 X10*3/uL [facility] Eosinophils Absolute Auto 0.0 0.0 - 0.4 X10*3/uL [facility] Basophils Absolute Auto 0.0 0.0 - 0.2 X10*3/uL [facility] NRBC Abs Auto 0.000 0.0 - 0.012 X10*3/uL [facility] 05/25/2024 11:5 9 PM EST 05/26/2024 12:02 AM EST Generic External Data Provider LAB BLOOD ORDERAB LES Final Result Performing Organization Address City/[facility]/ZIP Co de Phone Number [facility] [address] [place] [phone] * Magnesium (05/25/2024 11:59 PM EST) Magnesium 2.0 1.6 - 2.6 mg/dL [facility] 05/25/2024 11:5 9 PM EST 05/26/2024 12:02 AM EST Generic External Data Provider LAB BLOOD ORDERAB LES Final Result Performing Organization Address City/[facility] Co de Phone Number [facility] [address] [place] [phone] * Lipase (05/25/2024 11:59 PM EST) Only the most recent of2 resultswithin the time period is included. Lipase 33 8 - 78 U/L [facility] 05/25/2024 11:5 9 PM EST 05/26/2024 12:02 AM EST us Generic External Data Provider LAB BLOOD ORDERAB LES Final Result Performing Organization Address [facility] Co de Phone Number [facility] [address] [place] [phone] * Hepatic Function Panel (05/25/2024 11:59 PM EST) Only the most recent of2 resultswithin the time period is included. Bilirubin, Total 0.5 0.0 - 1.0 mg/dL [facility] Bilirubin, Direct 0.2 0.0 - 0.5 mg/dL [facility] Aspartate Amino Transferase 21 5 - 31 U/L [facility] Alanine Aminotransferase 21 0 - 31 U/L [facility] Total Protein 6.9 6.5 - 8.0 g/dL [facility] Albumin Level 4.0 3.5 - 5.0 g/dL [facility] Alkaline Phosphatase 52 39 - 117 U/L [facility] 05/25/2024 11:5 9 PM EST 05/26/2024 12:02 AM EST us Generic External Data Provider LAB BLOOD ORDERAB LES Final Result Performing Organization Address [facility] Co de Phone Number [facility] [address] [place] [phone] * (ABNORMAL) Basic Metabolic Panel (05/25/2024 11:59 PM EST) Sodium 140 135 - 145 mmol/L [facility] Potassium 3.6 3.3 - 5.1 mmol/L [facility] Chloride 110(H) 96 - 108 mmol/L [facility] Carbon Dioxide 23 22 - 29 mmol/L [facility] Anion Gap 11(L) 12 - 20 [facility] Urea Nitrogen (BUN) 14 9 - 16 mg/dL [facility] [facility] Creatinine, Serum 0.83 0.5 - 1.4 mg/dL [facility] Creatinine Clr Calc Pharmacy 74.7 [facility] Comment:Provided height and weight: 170.18 cm,53.1 kg.eGFR (calculated from the MDRD study equation) and eCrCl(calculated from the Cockcroft-Gault equation) are based ondifferent parameters and may not yield comparable results.If eCrCl result is absurd, please check patient'sheight/weight. Estimated Glomerular Filt Rate >60 [facility] Comment:Chronic Kidney Disea se: Estimated GFR < 60 mL/min/1.96x0Ypegqg Kidney Disease: Estimated GFR < 15 mL/min/1.73m2 Glucose 100 60 - 115 mg/dL [facility] Calcium 8.8 8.4 - 10.2 mg/dL [facility] 05/25/2024 11:5 9 PM EST 05/26/2024 12:02 AM EST us Generic External Data Provider LAB BLOOD ORDERAB LES Final Result Performing Organization Address City/[facility]/ZIP Co de Phone Number [facility] [address] [place] [phone] * POCT Rapid Influenza B BOYER ID NOW (05/25/2024 9:52 AM EST) Influenza B Negative Negative, Indeterminate [facility] QC Media Lot # [id number] [facility] Lot# Expiration Date [phone] [facility] Swab 05/25/2024 9:52 AM EST us Ignacio Rivera MD POINT OF CARE TEST ENTER/EDIT OR DERABLES Final Result Performing Organization Address City/[facility]/ZIP Co de Phone Number [facility] [address] [place] [phone] * POCT Rapid Influenza A BOYER ID NOW (05/25/2024 9:51 AM EST) Influenza A Negative Negative, Indeterminate [facility] QC Media Lot # [id number] [facility] Lot# Expiration Date [facility] Swab 05/25/2024 9:51 AM EST us Ignacio Name POINT OF CARE TEST ENTER/EDIT OR DERABLES Final Result [facility] [address] [place] [phone] * POCT Rapid Covid-19 BinaxNOW (05/25/2024 9:51 AM EST) Pathologist [facility] Rapid COVID Ag Negative QC Media Lot # [id number] Lot# Expiration Date Swab 05/25/2024 9:51 AM EST us Ignacio Rivera MD POINT OF CARE TEST ENTER/EDIT OR DERABLES Final Result * VITAMIN D 25-OH (D2 AND D3) (05/17/2024 9:40 AM EST) Pathologist [facility] Vitamin D, 25-OH, D2 <4 ng/mL [facility] Comment:This test was develo ped and its analytical performancecharacteristics have been determined by [employer] [place], [place]. It hasnot been cleared or approved by the U.S. Food and DrugAdministration. This assay has been validated pursuantto the CLIA regulations and is used for clinicalpurposes.THIS TEST WAS PERFORMED AT:[facility] [place] [address]WTSIMXGKHANG MADRID MD,PHD Vitamin D, 25-OH, D3 31 ng/mL [facility] Comment:This test was develo ped and its analytical performancecharacteristics have been determined by [employer] [place], [place]. It hasnot been cleared or approved by the U.S. Food and DrugAdministration. This assay has been validated pursuantto the CLIA regulations and is used for clinicalpurposes. Vitamin D, 25-OH, Total 31 30 - 100 ng/mL [facility] Comment:Vitamin D, 25-Hydrox y reports [...] = 30 ng/mL.For additional information, please refer tohttp://education.Webcrumbz/faq/SSM933(This link is being provided for informational/educational purposes only.) 05/17/2024 9:40 AM EST 05/17/2024 9:40 AM EST us Generic External Data Provider LAB BLOOD ORDERAB LES Final Result Performing Organization Address [facility] Co de Phone Number [facility] [address] [place] [address] [phone] * Vitamin B12 (Cobalamin) and Folate Panel, Serum (05/17/2024 9:40 AM EST) Vitamin B12 474 200 - 900 pg/mL [facility] Comment:NORMAL 200-900 PG/ML INDETERMINATE 160-199 PG/ML DEFICIENT < 160 PG/ML Folate 15.2 > or = 4.0 ng/mL [facility] Comment:Reference Values:> o r = 4.0 ng/mL< 4.0 ng/mL suggests folate deficiency Methotrexate, aminopterin and folinic acid(leucovorin) are chemotherapeutic agents whose molecularstructures are similar to folate; therefore, the Architectfolate assay cannot be used for patients using these drugs. 05/17/2024 9:40 AM EST 05/17/2024 9:40 AM EST us Generic External Data Provider LAB BLOOD ORDERAB LES Final Result Performing Organization Address [facility]/State/ZIP Co de Phone Number [facility] [address] [place] [phone] [phone] * Hepatitis Panel, General (05/17/2024 9:40 AM EST) Hepatitis A IgM Nonreactive Nonreactive [facility] Comment:IgM antibodies to AMAYA V not detected; does not exclude earlyacute or recovered HAV infection. ~Hepatitis B Surface Antibody REACTIVE Nonreactive [facility] Comment:REACTIVE: > 11.99 mI U/mL Hepatitis B Core Antibody Nonreactive Nonreactive [facility] Hepatitis C Antibody Nonreactive Nonreactive [facility] Comment:Antibodies to HCV no t detected; does not exclude early acuteHCV infection. Hepatitis B Surface Ag Negative Negative [facility] 05/17/2024 9:40 AM EST 05/17/2024 9:40 AM EST Generic External Data Provider LAB BLOOD ORDERAB LES Final Result [facility] [address] [place] [phone] * HIV-1/2 Antigen and Antibodies, Fourth Generation, with Reflexes (05/17/2024 9:40 AM EST) Pathologist [facility] HIV AB/AG Nonreactive Nonreactive [facility] Comment:HIV-1 p24 Ag and/or HIV-1/HIV-2 Ab not detected.A test result that is nonreactive does not exclude thepossibility of exposure to or infection with HIV-1 and/orHIV-2. Nonreactive results in this assay for individualswith prior exposure to HIV-1 and/or HIV-2 may be due toantigen and antibody levels that are below the limit ofdetection of this assay.The [employer] HIV Ag/Ab Combo assay result andsupplemental assay results should be interpreted inconjunction with the patient's clinical presentation,history and other laboratory results. If the results areinconsistent with clinical evidence, additional testing issuggested to confirm the result. 05/17/2024 9:40 AM EST 05/17/2024 9:40 AM EST us Generic External Data Provider LAB BLOOD ORDERAB LES Final Result [facility] [address] [facility] [place] [phone] * BI Mammogram Screening Tomosynthesis Bilateral (09/28/2023 12:08 PM EDT) Anatomical Region Laterality Modality Breast Bilateral Mammography 09/28/2023 12:0 8 PM EDT Narrative 10/27/2023 9:20 AM EDT ? [facility] ? [address] ?[place] [address] ? Mammography Report ? Signed ? Patient: Kera Armstrong ?MR#: [id number] ?? [id number] ? : 1980 ?Acct:[id number] ? Age/Sex: 42 / F ?ADM Date: 09/28/23 ? Loc: HO.MAMMO ? Attending Dr: Jessi Dueñas MD ? Ordering Physician: Anita Arriaga MD ?Re ?? sults: 1Negative ? Date of Service: 09/28/23 ?Follow Up: 1 Year From Orig ?? inal Mammogram ? Procedure(s): MM tomosynthesis screening BI ?? Accession Number(s): [id number] ? cc: Jessi Dueñas; Aniat Arriaga MD ? EXAMINATION: ?? MM SCREENING [...] 0916 ? DD/ 1208 ? TD/TT: ? Sports Announcer: ? Procedure Note Cy, Eloy - 10/27/2023 [facility] [address] [place] [address] Dr. [place], [place] [address] Mammography Report Signed Patient: Kera Armstrong#: [id number] : 1980Acct:[id number] Age/Sex: 42 / FADM Date: 09/28/23 Loc: [facility] Attending Dr: Jessi Dueñas MD Ordering Physician: Anita Arriaga sults: 1Negative Date of Service: 09/28/23Follow Up: 1 Year From Orig inal Mammogram Procedure(s): MM tomosynthesis screening BI Accession Number(s): [id number] cc: Jessi Dueñas; Anita Arriaga MD EXAMINATION: [...] in OV> 10/27/23 0916 DD/ 1208 TD/TT: Sports Announcer: Anita Roca MD IMG BI PROCEDURES Final Result * THINPREP TIS PAP (02/22/2021 12:00 AM EST) Clinical Information: None given [facility] COMMENT SEE COMMENT [facility]OUND[facility] ON [...] was manually screened according to routine procedures. Golf Ball Inspector : SEE COMMENT [facility] Comment: KN, CT(ASCP) CT screening location: [address] ??[phone] Interpretation/R esult: Negative for intraepithelial lesion or malignancy. [facility] LMP: NONE GIVEN [facility] Prev. BX: NONE GIVEN [facility] Prev. PAP: NONE GIVEN [facility] ON [facility] SOURCE: None given [facility] Statement Of Adequacy: SEE COMMENT [facility] Comment: Satisfactory for evaluation. Endocervical/transformation zone component absent. Partially obscuring blood 02/22/2021 Jessi Dueñas MD LAB PATHOLOGY ORDERABLES Final Result Performing Organization Address [facility] de Phone Number [facility] [address] * HPV mRNA E6/E7 REFLEX TO HPV 16, 18/45 (02/22/2021 12:00 AM EST) HPV nRNA E6/E7 Not Detected Not Detected [facility] Comment: Methodology: Haunted History Tour Guide-Mediated Amplification This assay detects E6/E7 viral messenger RNA (mRNA) from 14 high-risk HPV types (16,18,31,33,35,39,45,51,52,56,58,59,66,68). ? The analytical performance characteristics of this assay have been determined by [employer]. The modifications have not been cleared or approved by the FDA. This assay has been validated pursuant to the CLIA regulations and is used for clinical purposes. ?? For additional information, please refer to http://education.Box Upon a Time.BrainRush/faq/ZVF685a4 (This link if provided for information/ educational purposes only.) 02/22/2021 Jessi Dueñas MD LAB CYTOLOGY ORDERABLES Final Result Performing Organization Address [facility] de Phone Number [facility] [address] from Last 3 Months or Most Recently Relevant to Health Maintenance Insurance [facility] C3 HSN PARTIAL DENTAL-[facility] MEDICAID STAND ADULT Care Teams Director Public Relationship Specialty Start Date End Date Jessi Dueñas MD [address] [place] [phone] PCP - General Family Medicine 11/24/20 Mikayla Bhagat Take Up OperatorBusiness Agent 05/09/23
--- OUTSIDE RECORDS SUMMARY | 2024-07-23 16:22 | XMS_ITS | Encounter Summary ---
Author Organization [employer] Address [address] [place] [address] Care Team Providers Care Psychological Tests Sales Agent Name Role Phone Jessi Dueñas MD Primary Care Provider [phone] Reason for Visit * Reason Onset Date Comments Other 01/05/2023 Encounter Details Date Type Department Care Team ([facility] st Contact Info) Description 01/05/2023 Telephone [facility] MEDICINE [address] [place] [address] Jessi Dueñas MD [address] [place] [address] Other Social History Tobacco Use Types Packs/Day [...] 12:53 PM EDT TC placed to pt [phone] to inform pt PCP sent Cymbalta to the pharmacy yesterday at [facility] for her pain. Pt reports she called [facility] pharmacy today and they told her that they did not receive the script. RN placed pt on hold and called [facility] pharmacy who confirmed they did receive the [...] rheumatology referral d/t [facility] not speaking korean. Pt was informed PCP has placed new rheumatology referral for [facility] yesterday. Pt verbalized understanding. Pt to f/u PRN. * Telephone Encounter - Divya Frank - 01/05/2023 11:51 AM EDT Tc from pt states PCP advised her she will send a script for pain on 01/04 appointment but pt never received medication. Please contact pt at [phone] (Libyan) documented in this encounter Plan of Treatment Upcoming Encounters Date Type Department Care Team (Late st Contact Info) Description 07/26/2024 9:45 AM EDT Office Visit [facility] MEDICINE [address] [place] [address] Jessi Dueñas MD [address] [place] [address] 09/02/2024 8:00 AM EDT Office Visit [facility] ADULT DENTAL [address] [place] [address] Fuentes Hurley DDS [address] [place] [address] documented as of this encounter Visit Diagnoses Not on filedocumented in this encounter Additional Health Concerns Assessment Noted Time PHQ-9 Depression Total Score: 20 023 9:49 AM EDT documented as of this encounter Care Teams Psychological Tests Sales Agent Relationship Specialty Start Date End Date Jessi Dueñas MD [address] [place] [address] PCP - General Family Medicine 11/24/20 Mikayla Bhagat Disk SharpenerClient Administrator 05/09/23 documented as of this encounter
--- OUTSIDE RECORDS SUMMARY | 2024-07-23 16:22 | XMS_ITS | Encounter Summary ---
Author Organization [employer] Address [address] [place] [address] Care Team Providers Care Toll Line Mechanic Name Role Phone Jessi Dueñas MD Primary Care Provider [phone] Reason for Visit * Reason Comments Dental Pain Right side upper and lower pain Encounter Details Date Type Department Care Team (Late st Contact Info) Description 07/18/2024 1:00 PM EDT Office Visit [facility] ADULT DENTAL [address] [place] [address] Wallace-LiebermanKenisha garza, DDS [address] [place] [address] Dental caries (Primary Dx) Social History Tobacco Use Types [...] Pressure 110/78 07/18/2024 1:00 PM EDT Pulse - - Temperature - - Respiratory Rate - - Oxygen Saturation - - Inhaled Oxygen Concentration - - Weight - - Height - - Body Mass Index - - documented in this encounter Progress Notes * Kenisha Estevez DDS - 07/18/2024 1:00 PM EDT Dental procedures in this visit D9110 - PALLIATIVE (EMERGENCY) TREATMENT OF DENTAL PAIN - MINOR PROCEDURE (Completed) Service provider: Kenisha Estevez DDS Billing provider: Kenisha Estevez DDS [id number] - INTRAORAL - PERIAPICAL FIRST RADIOGRAPHIC IMAGE (Completed) Service provider: Kenisha Estevez DDS Billing provider: Kenisha Estevez DDS D0270 - BITEWING - SINGLE RADIOGRAPHIC IMAGE (Completed) Service provider: Kenisha Estevez DDS Billing provider: Kenisha Estevez DDS D9450 - CASE PRESENTATION, DETAILED AND EXTENSIVE TREATMENT PLANNING (Completed) Service provider: Kenisha Estevez DDS Billing provider: Kenisha Estevez DDS Patient ID: Kera Nicole is a 43 y.o. female. Time Out: Timeout Date: 07/18/24, Timeout Time: 1313 (Dental Emergency exam) Location: [facility] Tooth: #2 Procedure: Emergency Verified the above with patient, news assistant, and provider. Confirmed via patient's chart, intraorally and by radiographs. Grievance And Appeals Specialist: not applicable Chief Complaint Patient presents with Dental Pain Right side upper and lower pain Medical Hx: Vitals: Blood pressure 110/78. Past Medical History: Diagnosis Date JUANITO positive Asthma Bipolar disorder ([facility]) Fibromyalgia Migraine Medications: Outpatient Encounter Medications as of 07/18/2024 Medication Sig Dispense Refill acetaminophen (Tylenol 8 Hour) 650 MG ER tablet Take 1 tablet (650 mg) by mouth every 8 (eight) hours if needed for moderate pain for up to 10 days. Do not crush, chew, or split. 15 tablet 0 amoxicillin-clavulanate (Augmentin) 875-125 MG tablet Take 1 tablet by mouth 2 times daily for 7 days. 14 tablet 0 cholecalciferol VITAMIN D (Vitamin D-3) 50 MCG (2000 UT) tablet TAKE 1 TABLET BY MOUTH EVERY MORNING 90 tablet 3 clonazePAM (KlonoPIN) 1 MG tablet TAKE 1 TABLET BY MOUTH TWICE DAILY IN THE MORNING AND IN THE EVENING (MAY TAKE ADDITIONAL TABLET NEEDED) cyproheptadine (Periactin) 4 MG tablet Take 1 tablet (4 mg) by mouth 2 times daily. For appetite 180 tablet 3 diphenhydrAMINE (Dahlia-Dryl) 25 MG tablet TAKE 1 TABLET BY MOUTH EVERY 4 TO 6 HOURS NEEDED FOR SWELLING 90 tablet 2 FLUoxetine (PROzac) 40 MG capsule Take 1 capsule (40 mg) by mouth Once per day. 30 capsule 11 fluticasone (Flonase) 50 MCG/ACT nasal spray INHALE 2 SPRAYS IN EACH NOSTRIL ONCE DAILY [id number] g 3 gabapentin (Neurontin) 300 MG capsule TAKE 1 CAPSULE BY MOUTH THREE TIMES DAILY IN THE MORNING, EVENING, AND BEDTIME 90 capsule 3 hydrocortisone 2.5 % cream APPLY TOPICALLY TO THE AFFECTED AREA(S) RECTALLY EVERY DAY 60 g 1 ibuprofen 800 MG tablet Take 1 tablet (800 mg) by mouth every 8 (eight) hours if needed for mild pain for up to 10 days. 15 tablet 0 imipramine (Tofranil) 50 MG tablet Take 1 tablet (50 mg) by mouth at bedtime. 30 tablet 11 Lactobacillus 0.05-0.05 MG tablet Take 1 tablet by mouth Once per day. 90 tablet 3 Levonorgestrel (Mirena, 52 MG,) 20 MCG/DAY intrauterine device Mometasone Furoate (Asmanex HFA) 200 MCG/ACT aerosol INHALE 1 PUFF BY MOUTH TWICE DAILY RINSE MOUTHAFTER USING. 13 g 1 montelukast (Singulair) 10 MG tablet TAKE 1 TABLET BY MOUTH EVERY EVENING FOR ASTHMA 90 tablet 3 pantoprazole (ProtoNix) 40 MG EC tablet Take 40 mg by mouth in the morning and at bedtime. 27-1 MG tablet Take 1 tablet by mouth in the morning. 90 tablet 3 propranolol (Inderal) 10 MG tablet Take 1 tablet (10 mg) by mouth 2 times daily for 7 days. 14 tablet 0 QUEtiapine (SEROquel) 100 MG tablet TAKE 1/2 TABLET BY MOUTH TWICE DAILY NEEDED QUEtiapine (SEROquel) 300 MG tablet Take 300 mg by mouth at bedtime. rOPINIRole (Requip) 4 MG tablet Take 1 tablet (4 mg) by mouth at bedtime. 90 tablet 2 traMADol (Ultram) 50 MG tablet Take 1 tablet (50 mg) by mouth every 12 (twelve) hours if needed forsevere pain for up to 28 days. 56 tablet 0 No facility-administered encounter medications on file as of 07/18/2024. Subjective: Pain: severe, excruciating- patient describes the pain as throbbing and sharp at the time- irradiating into the R eye. Duration: 2 days- pt has not taken any pain medication for the last two days. Objective: Tooth: #2 Radiographs Taken: FMX and BW(s) Radiographic Findings: large RDL MOBL into pulp Clinical Findings: gross caries lesion into the pulp, darkened debris observed. Swelling: Tenderness Endo Testing: Cold: Hypersensitive, lingering Percussion: Pain Palpation: Pain Diagnosis: Acute Irreversible Pulpitis; Rampant caries Assessment/Plan: Referred for ext Prescriptions: Amoxicillin 875 mg/125 mg/bid/7 days 14 tabs Ibuprofen 800 mg/tid/prn 15 tabs Tylenol 650 mg/tid/prn 15 tabs Pt tolerated procedure well, all questions answered. Dismissed in good condition. NV: ext #2 Retail Sales Specialist: RUBY Nelson Dentist: Kenisha Estevez DDS documented in this encounter Plan of Treatment Upcoming Encounters Date Type Department Care Team (Late st Contact Info) Description 07/26/2024 9:45 AM EDT Office Visit [facility] MEDICINE [address] [place] [address] Jessi Dueñas MD [address] [place] [address] 09/02/2024 8:00 AM EDT Office Visit [facility] ADULT DENTAL [address] [place] [address] Fuentes Hurley DDS [address] [place] [address] Scheduled Orders Name Type Priority Associated Diagnoses Orde r Schedule 2 2 EXTRACTION, ERUPTED TOOTH OR EXPOSED ROOT (ELEVATION/FORCEPS REMOVAL) Dental Routine [address] arting 07/18/2024 documented as of this encounter Procedures Procedure Name Priority Date/Time Associated Diagnosis Comments PALLIATIVE (EMERGENCY) TREATMENT OF DENTAL PAIN - MINOR PROCEDURE Routine 07/18/2024 1:00 PM EDT INTRAORAL - PERIAPICAL FIRST RADIOGRAPHIC IMAGE Routine 07/18/2024 1:00 PM EDT CASE PRESENTATION, DETAILED AND EXTENSIVE TREATMENT PLANNING Routine 07/18/2024 1:00 PM EDT BITEWING - SINGLE RADIOGRAPHIC IMAGE Routine 07/18/2024 1:00 PM EDT documented in this encounter Visit Diagnoses Diagnosis Dental caries- Primary Unspecified dental caries documented in this encounter Additional Health Concerns Assessment Noted Time PHQ-9 Depression Total Score: 8 09/19/19 24 11:07 AM EDT documented as of this encounter Care Teams Toll Line Mechanic Relationship Specialty Start Date End Date Jessi Dueñas MD [address] [place] [phone] PCP - General Family Medicine 11/24/20 Mikayla Bhagat Mine WirerCotton Broker 05/09/23 documented as of this encounter
--- OUTSIDE RECORDS SUMMARY | 2024-07-23 16:22 | XMS_ITS | Encounter Summary ---
Author Organization [employer] Address [address] [place] [address] Care Team Providers Care System Controller Name Role Phone Jessi Dueñas MD Primary Care Provider [phone] Encounter Details Date Type Department Care Team (Late st Contact Info) Description 10/12/2022 Orders Only [facility]INE [address] [place] [phone] Jessi Dueñas MD [address] [place] [phone] Acute bilateral low back pain, unspecified whether [...] AM EDT Office Visit [facility]INE [address] [place] [phone] Jessi Dueñas MD [address] [place], [place] [phone] 09/02/2024 8:00 AM EDT Office Visit [facility] ADULT DENTAL [address] [place], [place] [phone] Fuentes Hurley DDS [address] [place], [place] [phone] documented as of this encounter Visit Diagnoses Diagnosis Acute bilateral low back pain, unspecified whether sciatica present- Primary Hematoma of left knee region Sprain of left medial ankle joint, subsequent encounter documented in this encounter Additional Health Concerns Assessment Noted Time PHQ-9 Depression Total Score: 19 023 2:59 PM EST documented as of this encounter Care Teams System Controller Relationship Specialty Start Date End Date Jessi Dueñas MD [address] [place], [place] [phone] PCP - General Family Medicine 11/24/20 Mikayla Bhagat Thread Machine OperatorLatex Ribbon Machine Operator 05/09/23 documented as of this encounter
--- OUTSIDE RECORDS SUMMARY | 2024-07-23 16:22 | XMS_ITS | Encounter Summary ---
Author Organization [employer] Address [address] [place] [address] Care Team Providers Care Mud Jack Operator Name Role Phone Jessi Dueñas MD Primary Care Provider [phone] Encounter Details Date Type Department Care Team ([facility] st Contact Info) Description 02/08/2023 Telephone [facility] [address] [place] [address] Jsesi Dueñas MD [address] [place] [address] Social History Tobacco Use Types Packs/Day Years [...] EDT Office Visit [facility] [address] [place] [address] Jessi Dueñas MD [address] [place] [address] 09/02/2024 8:00 AM EDT Office Visit [facility] ADULT DENTAL [address] [place] [address] Fuentes Hurley DDS [address] [place] [address] documented as of this encounter Visit Diagnoses Not on filedocumented in this encounter Additional Health Concerns Assessment Noted Time PHQ-9 Depression Total Score: 20 023 9:49 AM EDT documented as of this encounter Care Teams Mud Jack Operator Relationship Specialty Start Date End Date Jessi Dueñas MD [address] [place] [phone] PCP - General Family Medicine 11/24/20 Mikayla Bhagat Ironing WorkerRoad Grader Operator 05/09/23 documented as of this encounter
--- OUTSIDE RECORDS SUMMARY | 2024-07-23 16:22 | XMS_ITS | Encounter Summary ---
Author Organization [employer] Address [address] [facility] [address] 7[address] [place] [address] Care Team Providers Care Ax Survey Worker Name Role Phone Jessi Dueñas MD Primary Care Provider [phone] Reason for Visit * Reason Onset Date Comments Referral 12/23/2022 Encounter Details Date Type Department Care Team (Late st Contact Info) Description 12/23/2022 Telephone [facility] MEDICINE [address] [place] [address] Jessi Dueñas MD 230 [place] [address] Referral Social History Tobacco Use Types Packs/Day [...] Miscellaneous Notes * Telephone Encounter - Divya Zac - 12/23/2022 2:56 PM EDT Tc from pt requesting a new location for rheumatology due to language barrier. States they do not have interpreters. Any questions, contact pt at [phone] (Japanese) documented in this encounter Plan of Treatment Upcoming Encounters Date Type Department Care Team (Late st Contact Info) Description 07/26/2024 9:45 AM EDT Office Visit [facility] MEDICINE [address] [place] [address] Jessi Dueñas MD [address] [place] [address] 09/02/2024 8:00 AM EDT Office Visit [facility] ADULT DENTAL [address] [place] [address] Fuentes Hurley DDS [address] [place] [address] documented as of this encounter Visit Diagnoses Not on filedocumented in this encounter Additional Health Concerns Assessment Noted Time PHQ-9 Depression Total Score: 19 023 2:59 PM EST documented as of this encounter Care Teams Ax Survey Worker Relationship Specialty Start Date End Date Jessi Dueñas MD [address] [place] [address] [id number] PCP - General Family Medicine 11/24/20 Mikayla Bhagat Flume Ride OperatorSpa Host 05/09/23 documented as of this encounter
--- OUTSIDE RECORDS SUMMARY | 2024-07-23 16:22 | XMS_ITS | Encounter Summary ---
Author Organization [employer] Address [address] [facility] [address] 7t [place] [address] Care Team Providers Care Glazier Artist Name Role Phone Jessi Dueñas MD Primary Care Provider [phone] Reason for Visit * Reason Onset Date Comments Nurse Triage 02/07/2023 Encounter Details Date Type Department Care Team (Late st Contact Info) Description 02/07/2023 Telephone [facility] MEDICINE [address] [place] [address] Jessi Dueñas MD [address] [place] [address] Nurse Triage Social History Tobacco Use Types [...] 02/07/2023 11:26 AM EST Triage call with [employer] Sales Agent ID [id number] Pt reports ED visit @ [facility] 02/06/23 for abdominal pain and migraines. Report is requested from [facility] clinical child care center assistant director. Pt reports was supposed to be getting [...] lower back pain states she went to [facility] last on 02/06 and did nothing. Patient speaks central african documented in this encounter Plan of Treatment Upcoming Encounters Date Type Department Care Team (Late st Contact Info) Description 07/26/2024 9:45 AM EDT Office Visit [facility] MEDICINE [address] [place] [address] Jessi Dueñas MD [address] [place] [address] 09/02/2024 8:00 AM EDT Office Visit [facility] ADULT DENTAL [address] [place] [address] Fuentes Hurley DDS [address] [place] [address] documented as of this encounter Visit Diagnoses Not on filedocumented in this encounter Additional Health Concerns Assessment Noted Time PHQ-9 Depression Total Score: 20 023 9:49 AM EDT documented as of this encounter Care Teams Glazier Artist Relationship Specialty Start Date End Date Jessi Dueñas MD [address] [place] [address] PCP - General Family Medicine 11/24/20 Mikayla Bhagat Rn Medical Inpatient ServicesKelp Cutter 05/09/23 documented as of this encounter
--- OUTSIDE RECORDS SUMMARY | 2024-07-23 16:22 | XMS_ITS | Encounter Summary ---
Author Organization [employer] Address [address] [facility] [address] 7t [place] [address] Care Team Providers Care Vp Informatics Name Role Phone Jessi Dueñas MD Primary Care Provider [phone] Encounter Details Date Type Department Care Team ([facility] st Contact Info) Description 05/18/2023 Telephone [facility] MEDICINE 230 [place] [address] Jessi Dueñas MD 230 [place] [address] Social History Tobacco Use Types Packs/Day Years [...] Lopez RN - 05/18/2023 8:48 AM EST FRONT END DEVELOPER DESIGNER referral made to [facility], referral form faxed with confirmation of receipt. documented in this encounter Plan of Treatment Upcoming Encounters Date Type Department Care Team (Late st Contact Info) Description 07/26/2024 9:45 AM EDT Office Visit [facility] MEDICINE 230 [place] [address] Jessi Dueñas MD 230 [place] [address] 09/02/2024 8:00 AM EDT Office Visit [facility] ADULT DENTAL 230 [place] [address] Fuentes Hurley DDS [address] [place] [address] documented as of this encounter Visit Diagnoses Not on filedocumented in this encounter Additional Health Concerns Assessment Noted Time PHQ-9 Depression Total Score: 20 023 9:49 AM EDT documented as of this encounter Care Teams Vp Informatics Relationship Specialty Start Date End Date Jessi Dueñas MD [address] [place] [address] PCP - General Family Medicine 11/24/20 Mikayla Bhagat Field Support TechnicianBoring Machine Operator 05/09/23 documented as of this encounter
--- OUTSIDE RECORDS SUMMARY | 2024-07-23 16:22 | XMS_ITS | Encounter Summary ---
Author Organization [employer] Address [address] [facility] [address] 7[address] [place] [address] Care Team Providers Care Marketing Services Specialist Name Role Phone Jessi Dueñas MD Primary Care Provider [phone] Reason for Visit * Reason Onset Date Comments Med Refill Tramadol refill denied 10/25/2023 Encounter Details Date Type Department Care Team (Late st Contact Info) Description 10/25/2023 Refill [facility] MEDICINE [address] [place] [address] Jessi Dueñas MD [address] [place] [address] Fibromyalgia Social History Tobacco Use Types Packs/Day [...] can review this. Thank you! TC via P/I#[id number], unable to connect to the number, unable to leave message. Will forward message to PCP's M.A. to schedule a telephone appointment for patient as PCP requested. documented in this encounter Plan of Treatment Upcoming Encounters Date Type Department Care Team (Late st Contact Info) Description 07/26/2024 9:45 AM EDT Office Visit [facility] MEDICINE [address] [place] [address] Jessi Dueñas MD [address] [place] [address] 09/02/2024 8:00 AM EDT Office Visit [facility] ADULT DENTAL [address] [place] [address] Fuentes Hurley DDS [address] [place] [address] documented as of this encounter Visit Diagnoses Diagnosis Fibromyalgia Unspecified myalgia and myositis documented in this encounter Additional Health Concerns Assessment Noted Time PHQ-9 Depression Total Score: 8 09/19/19 24 11:07 AM EDT documented as of this encounter Care Teams Marketing Services Specialist Relationship Specialty Start Date End Date Jessi Dueñas MD [address] [place] [address] PCP - General Family Medicine 11/24/20 Mikayla Bhagat Corrugator HelperMachine I Trimmer 05/09/23 documented as of this encounter
--- OUTSIDE RECORDS SUMMARY | 2024-07-23 16:22 | XMS_ITS | Encounter Summary ---
Author Organization [employer] Address [address] [facility] [address] 7[address] [place] [address] Care Team Providers Care Parking Assistant Name Role Phone Jessi Dueñas MD Primary Care Provider [phone] Reason for Visit * Reason Onset Date Comments Results 05/23/2023 Encounter Details Date Type Department Care Team ([facility] st Contact Info) Description 05/23/2023 Telephone [facility] MEDICINE 230 [place] [address] Jessi Dueñas MD 230 [place] [address] Results Social History Tobacco Use Types Packs/Day [...] T/C to pt. For below message through [place] - [id number], pt. Informed regarding normal x-ray result. pt. [...] case of any new or worsening symptoms. [facility] hours are reviewed. Pt. Verbally agreed and understood. * Telephone Encounter - Paco Sylvester - 05/24/2023 3:59 PM EST Tc from pt returning call. Please contact at [phone] * Telephone Encounter - Yumiko Whitaker RN - 05/24/2023 12:47 PM EST Return T/C to pt. For bellow message Normal x-ray result. No answer. LVM to call back on [phone]. * Telephone Encounter - Bran Parker - 05/23/2023 4:41 PM EST TC from pt requesting call back regarding Results. Type of results: X-Ray Date when done: 05/16/23 Facility: [facility] documented in this encounter Plan of Treatment Upcoming Encounters Date Type Department Care Team (Late st Contact Info) Description 07/26/2024 9:45 AM EDT Office Visit [facility] MEDICINE [address] [place] [address] Jessi Dueñas MD [address] [place] [address] 09/02/2024 8:00 AM EDT Office Visit [facility] ADULT DENTAL 230 [place] [address] Fuentes Hurley DDS [address] [place] [address] documented as of this encounter Visit Diagnoses Not on filedocumented in this encounter Additional Health Concerns Assessment Noted Time PHQ-9 Depression Total Score: 20 023 9:49 AM EDT documented as of this encounter Care Teams Parking Assistant Relationship Specialty Start Date End Date Jessi Dueñas MD [address] [place] [address] PCP - General Family Medicine 11/24/20 Mikayla Bhagat Checker Bakery ProductsPlant Accountant 05/09/23 documented as of this encounter
--- OUTSIDE RECORDS SUMMARY | 2024-07-23 16:22 | XMS_ITS | Encounter Summary ---
Author Organization [employer] Address [address] [facility] [address] 7[address] [place] [address] Care Team Providers Care Senior Dynamics Crm Developer Name Role Phone Jessi Dueñas MD Primary Care Provider [phone] Reason for Visit * Reason Onset Date [...] Care Team (Late st Contact Info) Description 06/03/2024 Refill [facility] MEDICINE [address] [place], [place] [phone] Jessi Dueñas MD 230 [place], [place] [phone] Fibromyalgia Social History Tobacco Use Types Packs/Day [...] EDT Office Visit [facility] MEDICINE [address] [place] [address] Jessi Dueñas MD 230 [place] [address] 09/02/2024 8:00 AM EDT Office Visit [facility] ADULT DENTAL [address] [place] [address] Fuentes Hurley DDS [address] [place] [address] documented as of this encounter Visit Diagnoses Diagnosis Fibromyalgia Unspecified myalgia and myositis documented in this encounter Additional Health Concerns Assessment Noted Time PHQ-9 Depression Total Score: 8 09/19/19 24 11:07 AM EDT documented as of this encounter Care Teams Senior Dynamics Crm Developer Relationship Specialty Start Date End Date Jessi Dueñas MD [address] [place] [address] PCP - General Family Medicine 11/24/20 Mikayla Bhagat Airborne Operations ManagerMedical Apparatus Model Maker 05/09/23 documented as of this encounter
--- OUTSIDE RECORDS SUMMARY | 2024-07-23 16:22 | XMS_ITS | Encounter Summary ---
Author Organization [employer] Address [address] [facility] [address] 7[address] [place] [address] Care Team Providers Care Bridge Repair Crew Person Name Role Phone Jessi Dueñas MD Primary Care Provider [phone] Encounter Details Date Type Department Care Team (Late st Contact Info) Description 01/11/2023 Orders Only [facility] MEDICINE [address] [place] [address] Jessi Dueñas MD 230 [place] [address] Chronic pain of both knees (Primary Dx) [...] Visit [facility] MEDICINE [address] [place] [address] Jessi Dueñas MD [address] [place] [address] 09/02/2024 8:00 AM EDT Office Visit [facility] ADULT DENTAL [address] [place] [address] Fuentes Hurley DDS [address] [place] [address] documented as of this encounter Visit Diagnoses Diagnosis Chronic pain of both knees- Primary documented in this encounter Additional Health Concerns Assessment Noted Time PHQ-9 Depression Total Score: 20 023 9:49 AM EDT documented as of this encounter Care Teams Bridge Repair Crew Person Relationship Specialty Start Date End Date Jessi Dueñas MD [address] [place] [address] PCP - General Family Medicine 11/24/20 Mikayla Bhagat Key AttendantSenior Business Intelligence Analyst 05/09/23 documented as of this encounter
== END 2024-07-23 14:45 | disposition home or self-care (01) ==
LOC: HO.HWS 13:45
PROVIDERS: PCP General Practice; Visit Provider Obstetrics & Gynecology
DX: N93.9 Abnormal uterine and vaginal bleeding, unspecified (principal); Z30.431 Encounter for routine checking of intrauterine contraceptive device; R31.29 Other microscopic hematuria
CPT/HCPCS: 99213

== ENCOUNTER 2024-07-23 14:53 | Outpatient (REF) | payer MEDICAID, SELFPAY ==
[2024-07-23 16:22] LABS: Blood Urea Nitrogen 17 mg/dL (9-16); Estimated Glomerular Filt Rate > 60
[2024-07-29 12:14] LABS: HPV Genotype 16 Negative (Negative); HPV Genotype 18 Negative (Negative); HPV High Risk Negative (Negative)
== END 2024-07-23 14:54 | disposition home or self-care (01) ==
LOC: HO.LNP 14:53
PROVIDERS: Visit Provider Obstetrics & Gynecology
DX: R31.29 Other microscopic hematuria (principal); N93.9 Abnormal uterine and vaginal bleeding, unspecified
CPT/HCPCS: 82565; 84520; 87626; 88175

== ENCOUNTER 2024-08-13 10:45 | Outpatient (REF) | payer MEDICAID, SELFPAY ==
--- NOTE | ~2024-08-13 | US_ITS ---
CLINICAL HISTORY: N93.9 - Abnormal uterine and vaginal bleeding, unspecified US pelvis transabdominal and transvaginal with Doppler Comparison: US/HI/SR - US PELVIC AND TRANSVAGINAL - 07/02/24 13:18 EDT Findings: Transabdominal scanning performed for overall anatomy. Transvaginal scanning performed for additional detail. Anteverted uterus is 8.7 cm length. Posterior fundal fibroid measuring 7 mm. No endometrial lesion, 4 mm thickness. Intrauterine device is in place Right ovary 2.7 x 1.7 x 2.2 cm. Left ovary 3.4 x 1.6 x 3.3 cm. 27 mm left ovarian cyst. Normal color Doppler with arterial/venous spectral tracing of both ovaries. No free fluid. IMPRESSION: 1. Appropriately positioned intrauterine device. 2. No acute process. 3. Small uterine fibroid. This document has been electronically signed by: Dalton Zepeda MD on 08/13/2024 15:50:56
== END 2024-08-13 10:46 | disposition home or self-care (01) ==
LOC: HO.US 10:45
PROVIDERS: PCP General Practice; Visit Provider Obstetrics & Gynecology
DX: N93.9 Abnormal uterine and vaginal bleeding, unspecified (principal)
CPT/HCPCS: 76830; 76856

== ENCOUNTER → 2024-08-13 10:50 | Outpatient (BNV) | payer MEDICAID, SELFPAY | PROVIDERS: PCP General Practice; Visit Provider Radiology Diagnostic Radiology | DX: N93.9 Abnormal uterine and vaginal bleeding, unspecified (principal) | CPT/HCPCS: 76830; 76856 ==

== ENCOUNTER 2024-08-27 08:04 | Outpatient (AMB) | payer MEDICAID, SELFPAY ==
--- OUTSIDE RECORDS SUMMARY | 2024-08-27 08:06 | XMS_ITS | Encounter Summary ---
Author Organization [employer] Address [address] [facility] 7t [place] [address] Care Team Providers Care Account Manager Name Role Phone Jessi Dueñas MD Primary Care Provider [phone] Reason for Referral * Consultation (Routine) - Closed Specialty Diagnoses / Procedures Referred By Contac t Referred To Contact Physical Therapy Diagnoses Acute bilateral low back pain without sciatica Chronic pain of both knees Bilateral hand pain Jessi Dueñas MD [address] [place] [address] Phone: tel: fax: [facility] [address] Phone: tel: fax: Referral ID Status Reason Start Date Expiration Date V isits Requested Visits Authorized [id number] Closed Specialty Services Required 04/17/2024 04/17/2025 20 20 Encounter Details Date Type Department Care Team (Late st Contact Info) Description 04/17/2024 Orders Only [facility] MEDICINE [address] [place] [address] Jessi Dueñas MD [address] [place] [address] Acute bilateral low back pain without sciatica [...] Care Team (Late st Contact Info) Description 09/02/2024 8:00 AM EDT Office Visit [facility] ADULT DENTAL [address] [place] [address] Fuentes Hurley DDS [address] [place] [address] 10/30/2024 3:00 PM EDT Office Visit [facility] MEDICINE [address] [place] [address] Jessi [place] [address] 11/07/2024 1:00 PM EDT Clinical Support [address] [address] Scheduled Referrals Name Type Priority Associated Diagnoses [...] documented as of this encounter Care Teams Account Manager Relationship Specialty Start Date End Date Jessi Dueñas MD [address] [place] [address] PCP - General Family Medicine 11/24/20 Mikayla Bhagat Rigging SupervisorMortgage Loan Specialist 05/09/23 documented as of this encounter
[2024-08-27 08:07] VITALS: BMI 18.2
--- NOTE | 2024-08-27 08:07 | A.OFFVIS_ITS ---
Vital Signs 08/27/24 08:07 Height 5 ft 7 in Weight 116 lb BMI 18.2 Intake Visit Reasons: ultrasound results Garage Door Opener Installer Required: Yes Garage Door Opener Installer Language: Millinery Salesperson Services: Garage Door Opener Installer Present (in person) Garage Door Opener Installer Name: Umu DA SILVA Information Interpreted: non-clinical & clinical Accompanied by: Self / Same As Patient Allergies cephalexin [From Keflex] Allergy (Intermediate, Verified 08/27/24 08:11) Eye Swelling morphine Allergy (Intermediate, Verified 08/27/24 08:11) Itching shellfish derived [SHELLFISH DERIVED] Allergy (Intermediate, Verified 08/27/24 08:11) swelling HPI Comments Details: Presenting for ultrasound follow-up which was done in 08/25 and showed the following: Transabdominal scanning performed for overall anatomy. Transvaginal scanning performed for additional detail. Anteverted uterus is 8.7 cm length. Posterior fundal fibroid measuring 7 mm. No endometrial lesion, 4 mm thickness. Intrauterine device is in place Right ovary 2.7 x 1.7 x 2.2 cm. Left ovary 3.4 x 1.6 x 3.3 cm. 27 mm left ovarian cyst. Normal color Doppler with arterial/venous spectral tracing of both ovaries. No free fluidTransabdominal scanning performed for overall anatomy. Transvaginal scanning performed for additional detail. Anteverted uterus is 8.7 cm length. Posterior fundal fibroid measuring 7 mm. No endometrial lesion, 4 mm thickness. Intrauterine device is in place Right ovary 2.7 x 1.7 x 2.2 cm. Left ovary 3.4 x 1.6 x 3.3 cm. 27 mm left ovarian cyst. Normal color Doppler with arterial/venous spectral tracing of both ovaries. No free fluid PFSH Medical History Diarrhea C. difficile colitis Asthma GERD (gastroesophageal reflux disease) Bipolar disorder Anxiety and depression Constipation Diarrhea Surgical History History of esophagogastroduodenoscopy (EGD) H/O colonoscopy History of tubal ligation History of section Family History Family/Other Cancer Other Family history of arthritis Social History Alcohol intake: never Patient Tobacco Use Status: Former Tobacco user Tobacco use type: Cigarette Substance Use Type: Marijuana Female Reproductive History Menstrual Age of Menarche: 17 Review of Systems Const All systems reviewed & are unremarkable except as noted in HPI and below Reports as per HPI and Reports no additional complaints GI Reports no additional complaints Reports no additional complaints Physical Exam Vital Signs: BMI result Body Mass Index 18.2 Assessment & Plan Assessment & Plan (1) Ovarian cyst: Code(s): N83.209 - Unspecified ovarian cyst, unspecified side Category: Medical Plan: Discussed with the patient ultrasound findings showing the previously identified right ovarian cyst with daughter cyst has resolved. The patient was instructed to call if symptoms recur. All questions were answered the patient verbalized understanding. (2) Uterine myoma: Code(s): D25.9 - Leiomyoma of uterus, unspecified Category: Medical Plan: Discussed with the patient the findings on pelvic ultrasound & the risk of myosarcoma; in addition reviewed with the patient that malignancy and pre malignancy cannot be ruled out without hysterectomy for pathological evaluation ; furthermore, explained to the patient the limitation of pelvic ultrasound and endometrial biopsy in the setting. Discussed with the patient the options of treatment including expectant management versus hysterectomy; the pros and cons, risks benefits of each approach were discussed with the patient including the fact that in cases of myosarcoma, surgical treatment can lead to early diagnosis and positively affects the prognosis; after further discussion, the patient decided to proceed with expectant management. Will repeat pelvic ultrasound periodically. Instructions given to patient to call in case any of the following occurs: pressure symptoms, abnormal uterine bleeding, pelvic pain; and to schedule a 12- months pelvic ultrasound (order placed) and a follow-up appointment . All questions answered, the patient verbalized understanding and agreed with the plan . Orders: Orders US pelvic and transvaginal 12 Months D25.9 - Leiomyoma of uterus, unspecified Coding Level of Care Code Est Pt Level 3 (16364) Diagnoses Ovarian cyst N83.209 Uterine myoma D25.9
== END 2024-08-27 08:31 | disposition home or self-care (01) ==
LOC: HO.HWS 08:04
PROVIDERS: PCP General Practice; Visit Provider Obstetrics & Gynecology
DX: N83.209 Unspecified ovarian cyst, unspecified side (principal); D25.9 Leiomyoma of uterus, unspecified
CPT/HCPCS: 99213

== ENCOUNTER → 2024-08-27 08:04 | Outpatient (BNVA) | payer MEDICAID, SELFPAY | PROVIDERS: PCP General Practice; Visit Provider Obstetrics & Gynecology | DX: M17.12 Unilateral primary osteoarthritis, left knee (principal); N83.209 Unspecified ovarian cyst, unspecified side; D25.9 Leiomyoma of uterus, unspecified | CPT/HCPCS: 20610; 99212; J1010; J2003 ==

== ENCOUNTER 2024-08-27 10:49 | Outpatient (AMB) | payer MEDICAID, SELFPAY ==
--- NOTE | 2024-08-27 10:50 | A.OFFVIS_ITS ---
Vital Signs 08/27/24 10:51 Height 5 ft 7 in Weight 116 lb BMI 18.2 Intake Visit Reasons: OV-Left knee inj follow up, 05/27/24 Intake Note: Kera is a 43 year old female who presents today for a left knee pain follow up. She was given a left knee steroid injection at her last visit on 05/27/24. The patient states that she got fairly good relief from the injection. Her pain has returned. She describes her pain as achy in nature. She has tried Tylenol and anti-inflammatory medicines which gave her mild relief. She wishes to hold off on surgery if at all possible. Personal Property Appraiser Required: Yes Personal Property Appraiser Services: Personal Property Appraiser Offered & Declined Allergies cephalexin [From Keflex] Allergy (Intermediate, Verified 08/27/24 10:51) Eye Swelling morphine Allergy (Intermediate, Verified 08/27/24 10:51) Itching shellfish derived [SHELLFISH DERIVED] Allergy (Intermediate, Verified 08/27/24 10:51) swelling Medication List - Last Reconciled 08/27/24 by Sam Panda MD albuterol sulfate 2.5 mg inhalation Q4-6H calcium carbonate (Antacid Ext Str (calcium carb)) 1 - 2 tabs PO DIRECTED cholecalciferol (vitamin D3) 50 mcg PO QAM clonazepam 1 mg PO TID PRN cyproheptadine 4 mg PO BID diphenhydramine HCl (Banophen) 25 - 50 mg PO BEDTIME PRN esomeprazole magnesium (Nexium) 40 mg PO DAILY famotidine 20 mg PO QPM fluoxetine 40 mg PO QAM fluticasone propionate 220 mcg/actuation (Flovent HFA) 1 puff inhalation BID imipramine HCl 50 mg PO BEDTIME Lactobacillus acidoph-L.bulgar 1 million cell 1 tab PO QAM loperamide 4 mg (2 x 2 mg) PO TID PRN loratadine (Allergy Relief (loratadine)) 10 mg PO DAILY magnesium hydroxide (Milk of Magnesia) 5 mL PO BEDTIME methylcellulose (laxative) (Citrucel) 500 mg PO BID metronidazole 0.75%(37.5mg/5gram) 1 appful vaginal BID 5 days mometasone 200 mcg/actuation (Asmanex HFA) 1 puff inhalation BID montelukast 10 mg PO QPM multivit-iron sulf-folic acid 15 mg iron- 400 mcg (Tab-A-Kisha Multivitamin w- iron) 1 tab PO QAM ondansetron 8 mg PO Q12H PNV,calcium 37-yvtk-ogfad acid 27 mg iron- 1 mg ( Vitamins Plus Low Iron) 1 tab PO QAM quetiapine 300 mg PO BEDTIME quetiapine 100 mg PO BID PRN riboflavin (vitamin B2) (Vitamin B-2) 400 mg PO DAILY ropinirole 4 mg PO BEDTIME sennosides (senna) 17.2 mg (2 x 8.6 mg) PO BEDTIME PRN sucralfate 10 mL PO BEDTIME topiramate 25 mg PO BEDTIME tramadol 50 mg PO Q12H PRN PFSH Medical History Diarrhea C. difficile colitis Asthma GERD (gastroesophageal reflux disease) Bipolar disorder Anxiety and depression Constipation Diarrhea Surgical History History of esophagogastroduodenoscopy (EGD) H/O colonoscopy History of tubal ligation History of section Family History Family/Other Cancer Other Family history of arthritis Social History Alcohol intake: never Patient Tobacco Use Status: Former Tobacco user Tobacco use type: Cigarette Substance Use Type: Marijuana Female Reproductive History Menstrual Age of Menarche: 17 Physical Exam Vital Signs: BMI result Body Mass Index 18.2 Const Other: Well-nourished well-developed very friendly female awake alert and oriented x3 in no acute distress Extrem Other: Left knee examination shows a minimal effusion, palpable crepitus with range of motion, pain with range of motion, no instability Office Procedures AMB Joint Injection/Aspiration Joint Injection/Aspiration Primary Site: left knee Prep: site was prepped using aseptic technique Injected: 40 mg of, DepoMedrol and 1% plain lidocaine Procedure: The patient tolerated the procedure well Coding 32543 - Large joint Procedure code (CPT) selection complete Results Reviewed Results Reviewed: X-rays of the patient's left knee taken previously show joint space narrowing, subchondral sclerosis, no acute bony abnormalities Assessment & Plan Assessment & Plan (1) Arthritis of left knee: Code(s): M17.12 - Unilateral primary osteoarthritis, left knee Category: Medical Plan Ms. Lc Nicole presents with left knee pain due to osteoarthritis. The risks and benefits of a left knee cortisone injection were discussed at length with the patient. The patient wished to proceed. She tolerated the injection well. She will continue with her activity modifications. She will contact me prior to her follow-up appointment in 3 months should any questions or concerns arise. Feel free to call me at any time should questions regarding her orthopedic management arise. I spent 21 minutes in reviewing the patient's records and imaging studies, seeing the patient and documenting in the medical record. Orders: Orders AMB Joint Injection/Aspiration Today M17.12 - Unilateral primary osteoarthritis, left knee Coding Level of Care Code Est Pt Level 3 (67980) Complex EM visit Add On G2211 Diagnoses Arthritis of left knee M17.12 CPT Codes Coding - 71958 Large joint: 41353 - Large joint ([id number])
[2024-08-27 10:51] VITALS: BMI 18.2
== END 2024-08-27 11:23 | disposition home or self-care (01) ==
LOC: HO.HOS 10:49
PROVIDERS: PCP General Practice; Visit Provider Orthopaedic Surgery
DX: M17.12 Unilateral primary osteoarthritis, left knee (principal)
CPT/HCPCS: 20610; 99213

== ENCOUNTER 2024-09-09 08:02 | Outpatient (REF) | payer MEDICAID, SELFPAY ==
--- NOTE | ~2024-09-09 | FL_ITS ---
EXAMINATION: XR UPPER GI AIR CONTRAST STUDY. CLINICAL INFORMATION: Difficulty swallowing liquids and solids. COMPARISON: None available. FINDINGS/ FL/FL upper GI w Ba Swallow IMPRESSION: The exam was terminated as patient was unable to swallow thick thick or thin barium. Patient been refused exam. Fluoroscopy time: 53 seconds. Dose area product: 23.6 dGy/cm2 Electronically signed by: Merritt Elizalde MD 09/09/2024 09:04 AM EDT
--- OUTSIDE RECORDS SUMMARY | 2024-09-09 08:07 | XMS_ITS | Encounter Summary ---
Author Organization [employer] Address [address] [place] [address] Care Team Providers Care Chief Nursing Officer Name Role Phone Jessi Dueñas MD Primary Care Provider [phone] Reason for Referral * Consultation (Routine) - Closed Specialty Diagnoses / Procedures Referred By Contac t Referred To Contact Physical Therapy Diagnoses Acute bilateral low back pain without sciatica Chronic pain of both knees Bilateral hand pain Jessi Dueñas MD [address] [place] [address] Phone: tel: fax: [facility] [address] Phone: tel: fax: Referral ID Status Reason Start Date Expiration Date V isits Requested Visits Authorized [id number] Closed Specialty Services Required 04/17/2024 04/17/2025 20 20 Encounter Details Date Type Department Care Team (Late st Contact Info) Description 04/17/2024 Orders Only [facility] [address] [place] [id number] Jessi Dueñas MD [address] [place] [address] Acute bilateral low back pain without sciatica [...] Care Team (Late st Contact Info) Description 10/30/2024 3:00 PM EDT Office Visit [facility] [address] [place] [address] Jessi Dueñas MD [address] [place] [address] 11/07/2024 1:00 PM EDT Clinical Support [facility] [address] [place] [address] Scheduled Referrals Name Type Priority Associated Diagnoses [...] as of this encounter Care Teams Chief Nursing Officer Relationship Specialty Start Date End Date Jessi Dueñas MD [address] [place] [id number] PCP - General Family Medicine 11/24/20 Mikayla Bhagat Forest WorkerSide Stitching Machine Operator 05/09/23 documented as of this encounter
== END 2024-09-09 08:03 | disposition home or self-care (01) ==
LOC: HO.XRAY 08:02
PROVIDERS: PCP General Practice; Visit Provider Nurse Practitioner Family
DX: K21.9 Gastro-esophageal reflux disease without esophagitis (principal)
CPT/HCPCS: 74240

== ENCOUNTER → 2024-09-09 08:30 | Outpatient (BNV) | payer MEDICAID, SELFPAY | PROVIDERS: PCP General Practice; Visit Provider Radiology Diagnostic Radiology | DX: R13.10 Dysphagia, unspecified (principal) | CPT/HCPCS: 74240 ==

== ENCOUNTER 2024-09-10 11:38 | Outpatient (AMB) | payer MEDICAID, SELFPAY ==
--- NOTE | 2024-09-10 11:43 | A.OFFVIS_ITS ---
Vital Signs 09/10/24 11:47 Height 5 ft 7 in Weight 119 lb BMI 18.6 BP 109/53 L Blood Pressure Location Lt brachial Position Sitting Pulse 60 Intake Visit Reasons: Follow Up Intake Note: Kera presents in the office as a follow up. CC: She states that she is having issues with swallowing certain types of liquids. She has constipation, diarrhea and issues with her stomach. Mis Specialist Required: Yes Allergies cephalexin [From Keflex] Allergy (Intermediate, Verified 09/10/24 11:49) Eye Swelling morphine Allergy (Intermediate, Verified 09/10/24 11:49) Itching shellfish derived [SHELLFISH DERIVED] Allergy (Intermediate, Verified 09/10/24 11:49) swelling HPI HPI Follow Up: Details: Assessment & Plan (1) Irritable bowel syndrome with diarrhea: Code(s): K58.0 - Irritable bowel syndrome with diarrhea Category: Medical (2) GERD (gastroesophageal reflux disease): Code(s): K21.9 - Gastro-esophageal reflux disease without esophagitis Category: Medical (3) Nausea and vomiting: Code(s): R11.2 - Nausea with vomiting, unspecified Category: Medical Plan SOMALI #Moraima Henry She has not been well lately. She continues to have extremely uneven stooling habits where she will not move her bowels for 2-3 days but then when she does it just ?explode.? This will be extreme diarrhea until she empties out so much she is just passing yellow bile. This will cause her to be sweaty and very weak. When this isn't happening she tends to have nausea and vomiting. She has a hard time connecting these 2 symptoms sets in her cycle of events. She also will have lower abdominal pain that radiates to her back that she seems to think is related to her fibromyalgia syndrome. She is going to be starting to new medications for her fibromyalgia that will be gabapentin and Cymbalta. This is mildly concerning to me because sometimes these medications can also promote nausea. At this point I do not think the metoclopramide has worked well for her. I am going to try to get her the 8 mg Zofran dissolvable tablet since this seems to work better for her, stopped the Reglan, and try a bile binding agent specifically cholestyramine. I think this secret will be in regulating the stooling as I think the nausea and vomiting may be reactive to this. She has had a fairly recent EGD and colonoscopy and a normal gastric emptying study in 2022. Return office visit in 6 weeks to evaluate her response. Medications: New cholestyramine (with sugar) 4 gram administer w/meal; avoid other meds within 1hr before or 4-6hr after dose 4 grams PO BID 60 ea 3RF K58.0 - Irritable bowel syndrome with diarrhea ondansetron 8 mg PO Q12H 60 tabs 3RF R11.2 - Nausea with vomiting, unspecified Discontinued metoclopramide HCl (Reglan) Discontinued Reason: Doctor's Order 2.5 mg (1/2 x 5 mg) PO .tidac 30 days 45 tabs 6RF K21.9 - Gastro-esophageal reflux disease without esophagitis, K58.0 - Irritable bowel syndrome with diarrhea, R11.2 - Nausea with vomiting, unspecified Patient was seen by Kat victor I was out on leave her note is as follows: Kat's note: Will check lipase 2 rule out chronic pancreatitis, hepatitis a CBC, lipase, vitamin-D. Thyroid study and vitamin B12, folate and liver panel. Will send patient for MRI of abdomen, MRCP to determine pain. Patient was encouraged to start taking fiber with pre and probiotics 1-2 chewables daily. She will take sucralfate at bedtime. We will give her senna at night time if she will feel constipated she can use it as needed. Currently patient is having diarrhea she might just need at better fiber to help her bulk her stool. Change PPI to Nexium in the morning. Avoid dietary triggers and late night snacking. Staying upright for minimum 3 hours after meals discussed with patient. Patient will return in 4 weeks to re-evaluate. She might not have completed the MRI yet, however we will still keep her appointment. Patient is agreeable to current plan of care and verbalizes understanding of instructions. She was given the opportunity to ask questions and all questions answered. Laboratory Tests 05/25/24 07/04/24 23:59 09:28 Lipase 33 TSH 1.05 TODAY'S VISIT [place] #[id number] (To date, we have found no GI explaination for her sx. 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 Her vomiting continues. Recent medication changes are d/c of her seroquel r/t this as a cause for RLS and removal of her drug eluting IUD with re insertion r/t her severe vaginal bleeding. She IS on requip which can cause N/V centrally. She is no longer on topramax. Her seroquel was changed to zolpidem. She has NO RELIEF with the zofran which is interesting. She also did not do well with reglan in the past. We had a long discussion about stopping marijuana and that she needs to be off of it for atleast 4-6 weeks before we can say if hit is a cause. I want her to see an MD for second opinion since I am running out of ideas. She may then return to me. Next OV with . [facility] Medical History (Updated 09/10/24 @ 11:49 by BRITTANY Dobson) H. pylori infection Back pain Left knee pain Encounter for IUD removal and reinsertion IUD check up Diarrhea C. difficile colitis Asthma GERD (gastroesophageal reflux disease) Bipolar disorder Anxiety and depression Constipation Diarrhea Surgical History (Updated 09/10/24 @ 11:49 by BRITTANY Dobson) History of section History of esophagogastroduodenoscopy (EGD) H/O colonoscopy History of tubal ligation Family History Family/Other Cancer Other Family history of arthritis Social History Alcohol intake: never Patient Tobacco Use Status: Former Tobacco user Tobacco use type: Cigarette Substance Use Type: Marijuana Female Reproductive History Menstrual Age of Menarche: 17 Review of Systems Const Denies fatigue, Denies fever(s), Denies night sweats, Denies poor appetite and Reports weight loss Eyes Details: glasses Reports requires corrective lenses ENT Reports Normal hearing present, Denies dental pain, Denies dysphagia, Denies hearing loss, Denies mouth pain, Denies odynophagia, Denies throat swelling, Denies tongue swelling and Reports other (Dentition adequate) Card Reports no additional complaints Resp Reports no additional complaints GI Details: Reports abdominal pain, Denies melena, Denies bloating, Denies hematochezia, Denies constipation, Denies GI cramping, Denies dysphagia, Denies excessive flatus, Denies early satiety, Reports dyspepsia, Reports heartburn, Denies diarrhea, Reports loose stools, Reports nausea, Denies odynophagia, Reports vomiting and Denies hematemesis Skin/Breast Denies pruritus, Denies lesions, Denies rash and Denies jaundice Neuro Reports Normal hearing present and Denies Abnormal speech present Endo Denies fatigue Aller/Immun Denies throat swelling and Denies tongue swelling Physical Exam Vital Signs: Last Vital Signs Pulse 60 09/10/24 11:47 BP 109/53 L 09/10/24 11:47 BMI result Body Mass Index 18.6 Const General: cooperative, no acute distress, well developed and well groomed Nutritional Appearance: average body habitus and well nourished Orientation/consciousness: oriented to person, oriented to place and oriented to time Limitations: language barrier HEENT Head: Yes normocephalic and Yes atraumatic Eyes General: appearance normal, both eyes and all related structures Pupils: Equal, round and reactive pupils present Neck Neck: Yes normal visual inspection and Yes no lymphadenopathy Thyroid: Thyroid normal Resp Effort & Inspection: normal respiratory effort and able to speak in complete sentences Auscultation: clear to auscultation bilaterally Cardio Rate: regular rate Rhythm: regular rhythm Heart sounds: Normal, physiologic split S2 sound present Peripheral pulses: radial pulses present and posterior tibial pulses present GI Inspection: No distended and No Abdominal panniculus present Palpation (GI): Soft to palpation, nontender, no guarding, not rigid and No hepatosplenomegaly present Percussion: Yes normal to percussion Auscultation: normal bowel sounds Rectal Exam - Female: deferred Skin General skin exam: no rashes or lesions noted, turgor normal, skin not dry, no jaundice, No spider nevi and no striae Rashes: no rashes Nails: normal Neuro General: oriented to person, oriented to place and oriented to time Cranial nerves: Yes Equal, round and reactive pupils present and Yes Normal hearing present Speech: No Abnormal speech present Extrem General: Yes normal to inspection, No clubbing, No cyanosis and No edema Psych Appearance: grossly normal and well kempt Mental Status: mental status grossly normal Speech and movement: Normal speech and movement present Affect: normal affect Attitude: cooperative Thought process: Normal thought process present and not confabulating Thought content: Normal thought content present Insight: Limited insight present (Psych) Judgement: Limited judgement present (Psych) Assessment & Plan Assessment & Plan (1) Irritable bowel syndrome with diarrhea: Comment: Has history of multiple issues including H pylori and C difficile.-discussed caution with use of the knee antibiotics that could be prescribed by any provider not aware of her entire history...MO'B Code(s): K58.0 - Irritable bowel syndrome with diarrhea Category: Medical (2) GERD (gastroesophageal reflux disease): Code(s): K21.9 - Gastro-esophageal reflux disease without esophagitis Category: Medical Qualifiers: Esophagitis presence: esophagitis presence not specified Qualified Code(s): K21.9 - Gastro-esophageal reflux disease without esophagitis Plan [place] #[id number] (To date, we have found no GI explaination for her sx. 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 Her vomiting continues. Recent medication changes are d/c of her seroquel r/t this as a cause for RLS and removal of her drug eluting IUD with re insertion r/t her severe vaginal bleeding. She IS on requip which can cause N/V centrally. She is no longer on topramax. Her seroquel was changed to zolpidem. She has NO RELIEF with the zofran which is interesting. She also did not do well with reglan in the past. We had a long discussion about stopping marijuana and that she needs to be off of it for atleast 4-6 weeks before we can say if hit is a cause. I want her to see an MD for second opinion since I am running out of ideas. She may then return to me. Next OV with MD. Medications: Refilled esomeprazole magnesium (Nexium) 40 mg PO DAILY 30 caps 5RF K21.9 - Gastro- esophageal reflux disease without esophagitis Discontinued imipramine HCl Discontinued Reason: Patient no longer taking 50 mg PO BEDTIME 30 tabs 3RF R11.2 - Nausea with vomiting, unspecified, R19.7 - Diarrhea, unspecified sucralfate Discontinued Reason: Patient Refused 10 mL PO BEDTIME 400 mL 3RF K21.9 - Gastro-esophageal reflux disease without esophagitis Coding Level of Care Code Est Pt Level 4 (66335) Diagnoses Irritable bowel syndrome with diarrhea K58.0 Gastroesophageal reflux disease, unspecified whether esophagitis present K21.9 Esophagitis presence: esophagitis presence not specified Time Spent (min) 34
[2024-09-10 11:47] VITALS: BP 109/53; PULSE 60; BMI 18.6
--- OUTSIDE RECORDS SUMMARY | 2024-09-10 13:59 | XMS_ITS | Encounter Summary ---
Author Organization [employer] Address [address] [facility] [address] [place] [address] Care Team Providers Care Golf Caddy Name Role Phone Jessi Dueñas MD Primary Care Provider [phone] Reason for Referral * Consultation (Routine) - Closed Specialty Diagnoses / Procedures Referred By Contac t Referred To Contact Physical Therapy Diagnoses Acute bilateral low back pain without sciatica Chronic pain of both knees Bilateral hand pain Jessi Dueñas MD [address] [place] [phone] Phone: tel: fax: [facility] [address] Phone: tel: fax: Referral ID Status Reason Start Date Expiration Date V isits Requested Visits Authorized [id number] Closed Specialty Services Required 04/17/2024 04/17/2025 20 20 Encounter Details Date Type Department Care Team (Late st Contact Info) Description 04/17/2024 Orders Only [facility] [address] [place] [id number] Jessi Dueñas MD [address] [place] [address] Acute bilateral low back pain without sciatica [...] Description 10/30/2024 3:00 PM EDT Office Visit [facility] [address] [place] [address] Jessi Dueñas MD [address] [place] [address] 11/07/2024 1:00 PM EDT Clinical Support [facility] [address] [place] [address] 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, HERNANDEZ Scheduled Referrals Name Type Priority Associated Diagnoses [...] documented as of this encounter Care Teams Golf Caddy Relationship Specialty Start Date End Date Jessi Dueñas MD [address] [place] [phone] PCP - General Family Medicine 11/24/20 Mikayla Bhagat Ghost WriterOnline Banking Specialist 05/09/23 documented as of this encounter
== END 2024-09-10 12:40 | disposition home or self-care (01) ==
LOC: HO.HGI 11:39
PROVIDERS: PCP General Practice; Visit Provider Nurse Practitioner
DX: K58.0 Irritable bowel syndrome with diarrhea (principal); K21.9 Gastro-esophageal reflux disease without esophagitis
CPT/HCPCS: 99214

== ENCOUNTER → 2024-09-10 11:38 | Outpatient (BNVA) | payer MEDICAID, SELFPAY | PROVIDERS: PCP General Practice; Visit Provider Nurse Practitioner | DX: K21.9 Gastro-esophageal reflux disease without esophagitis (principal); K58.0 Irritable bowel syndrome with diarrhea | CPT/HCPCS: 99212 ==

== ENCOUNTER 2024-09-30 11:25 | Outpatient (REF) | payer MEDICAID, SELFPAY | END 2024-09-30 11:26 | disposition home or self-care (01) | LOC: HO.MAMMO 11:25 | PROVIDERS: PCP General Practice; Visit Provider Obstetrics & Gynecology | DX: Z12.31 Encounter for screening mammogram for malignant neoplasm of breast (principal) | CPT/HCPCS: 77063; 77067 ==

== ENCOUNTER → 2024-09-30 11:30 | Outpatient (BNV) | payer MEDICAID, SELFPAY | PROVIDERS: PCP General Practice; Visit Provider Internal Medicine | DX: Z12.31 Encounter for screening mammogram for malignant neoplasm of breast (principal) | CPT/HCPCS: 77063; 77067 ==

== ENCOUNTER 2024-10-02 08:38 | Outpatient (REF) | payer MEDICAID, SELFPAY | END 2024-10-02 08:39 | disposition home or self-care (01) | LOC: HO.LNP 08:38 | PROVIDERS: PCP General Practice; Visit Provider Nurse Practitioner Family | DX: R31.29 Other microscopic hematuria (principal); R31.0 Gross hematuria; N39.3 Stress incontinence (female) (male); F12.20 Cannabis dependence, uncomplicated; F17.201 Nicotine dependence, unspecified, in remission | CPT/HCPCS: 81003; 88112; 99212 ==

== ENCOUNTER 2024-10-02 08:38 | Outpatient (AMB) | payer MEDICAID, SELFPAY ==
--- OUTSIDE RECORDS SUMMARY | 2024-10-02 08:41 | XMS_ITS | Encounter Summary ---
Author Organization [employer] Address [address] [facility] [address] [place] [address] Care Team Providers Care Gta Name Role Phone Jessi Dueñas MD Primary Care Provider [phone] Reason for Referral * Consultation (Routine) - Closed Specialty Diagnoses / Procedures Referred By Contac t Referred To Contact Physical Therapy Diagnoses Acute bilateral low back pain without sciatica Chronic pain of both knees Bilateral hand pain Jessi Dueñas MD [address] [place] [address] Phone: tel: fax: [facility] [address] Phone: tel: fax: Referral ID Status Reason Start Date Expiration Date V isits Requested Visits Authorized [id number] Closed Specialty Services Required 04/17/2024 04/17/2025 20 20 Encounter Details Date Type Department Care Team (Late st Contact Info) Description 04/17/2024 Orders Only [facility] [address] [place] [phone] Jessi Dueñas MD [address] [place] [address] Acute bilateral low back pain without sciatica [...] Description 10/30/2024 3:00 PM EDT Office Visit [facility] [address] [place] [address] Jessi Dueñas MD [address] [place] [address] 11/07/2024 1:00 PM EDT Clinical Support [facility] [address] [place] [address] 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, HERNANDEZ Scheduled Referrals Name Type [...] documented as of this encounter Care Teams Gta Relationship Specialty Start Date End Date Jessi Dueñas MD [address] [place] [phone] PCP - General Family Medicine 11/24/20 Mikayla Bhagat RetrimmerDetective Sergeant 05/09/23 documented as of this encounter
--- NOTE | 2024-10-02 08:52 | A.OFFVIS_ITS ---
Intake Visit Reasons: micro hematuria Intake Note: New Patient presents for initial visit for micro hematuria Urology Medications: none Blood Thinner: none Smoker: yes, marijuana Gripper Installer Required: Yes Gripper Installer Services: Gripper Installer Present Gripper Installer Name: Tamara Accompanied by: Self / Same As Patient Allergies cephalexin (From Keflex) Allergy (Intermediate, Verified 10/02/24 09:30) Eye Swelling morphine Allergy (Intermediate, Verified 10/02/24 09:30) Itching shellfish derived (SHELLFISH DERIVED) Allergy (Intermediate, Verified 10/02/24 09:30) swelling Medication List - Last Reconciled 10/02/24 by JOLLY Burger acetaminophen ER 650 mg PO Q8H PRN albuterol sulfate 2.5 mg inhalation Q4-6H calcium carbonate (Antacid Ext Str (calcium carb)) 1 - 2 tabs PO DIRECTED cholecalciferol (vitamin D3) 50 mcg PO QAM clonazepam 1 mg PO TID PRN cyproheptadine 4 mg PO BID diphenhydramine HCl (Banophen) 25 - 50 mg PO BEDTIME PRN esomeprazole magnesium (Nexium) 40 mg PO DAILY famotidine 20 mg PO QPM fiber tabs PO BID fluoxetine 40 mg PO QAM fluticasone propionate 220 mcg/actuation (Flovent HFA) 1 puff inhalation BID hydrocortisone 0.5% 1 appl topical DAILY PRN ibuprofen 800 mg PO Q8H PRN imipramine HCl 50 mg PO DAILY Lactobacillus acidoph-L.bulgar 1 million cell 1 tab PO QAM loperamide 4 mg (2 x 2 mg) PO TID PRN loratadine (Allergy Relief (loratadine)) 10 mg PO DAILY magnesium hydroxide (Milk of Magnesia) 5 mL PO BEDTIME methylcellulose (laxative) (Citrucel) 500 mg PO BID mometasone 200 mcg/actuation (Asmanex HFA) 1 puff inhalation BID montelukast 10 mg PO QPM multivit-iron sulf-folic acid 15 mg iron- 400 mcg (Tab-A-Kisha Multivitamin w- iron) 1 tab PO QAM ondansetron 8 mg PO Q12H PNV,calcium 91-gvyr-pqdaq acid 27 mg iron- 1 mg ( Vitamins Plus Low Iron) 1 tab PO QAM riboflavin (vitamin B2) (Vitamin B-2) 400 mg PO DAILY ropinirole 4 mg PO BEDTIME sennosides (senna) 17.2 mg (2 x 8.6 mg) PO BEDTIME PRN tramadol 50 mg PO Q12H PRN zolpidem 5 mg PO BEDTIME PRN HPI Comments Details: Kera is a Pashto-speaking 43-year-old female patient of Dr. Dueñas. She has a past medical history of H pylori, back pain, C diff, asthma, GERD, bipolar disorder, anxiety, depression, and constipation. She presents to the office today as a new patient for gross hematuria. In discussion with the patient today she reports noting intermittent episodes of gross hematuria over the last few months. When asked she does report a previous history of nicotine dependence. She reports she had been smoking approximately 1 pack of cigarettes per week for 3-5 years. However quit 2 years ago and has since been smoking marijuana daily. She smokes approximately 3-4 blunts/joints a day. She also r eports noting episodes of stress incontinence for many years. We did discussed at length potential causes of gross hematuria as well as further treatment options and risks and benefits of these treatment options. I discussed reasons for blood in the urine may include but are not limited to kidney stones, cancer in the urinary tract, kidney stone disease or inflammatory conditions of the urinary tract. I have discussed workup to include cystoscopy evaluation. She otherwise denies urinary urgency, urinary frequency, nocturia, dysuria, foul smelling urine, changes to urinary stream, flank pain, fever, and or chills. In office urinalysis results reviewed with the patient today microscopic hematuria noted. All questions were answered. She otherwise offers no other issues or concerns at this time. [facility] Medical History H. pylori infection Back pain Left knee pain Encounter for IUD removal and reinsertion IUD check up Diarrhea C. difficile colitis Asthma GERD (gastroesophageal reflux disease) Bipolar disorder Anxiety and depression Constipation Diarrhea Surgical History History of section History of esophagogastroduodenoscopy (EGD) H/O colonoscopy History of tubal ligation Family History Family/Other Cancer Other Family history of arthritis Social History Alcohol intake: never Patient Tobacco Use Status: Former Tobacco user Tobacco use type: Cigarette Substance Use Type: Marijuana Female Reproductive History Menstrual Age of Menarche: 17 Review of Systems Const All systems reviewed & are unremarkable except as noted in HPI and below Reports as per HPI Eyes Reports no additional complaints ENT Reports no additional complaints Card Reports as per HPI Resp Reports no additional complaints GI Denies abdominal pain and Denies nausea Musc Denies no additional complaints Neuro Reports no additional complaints Physical Exam Const General: cooperative, healthy appearing, comfortable, no acute distress, well developed, alert and awake Nutritional Appearance: thin Orientation/consciousness: patient oriented x3 Limitations: language barrier HEENT Head: Yes normal to inspection, Yes normocephalic and Yes atraumatic Ears: hearing grossly normal bilaterally Eyes General: appearance normal, both eyes and all related structures Neck Neck: Yes normal visual inspection and Yes trachea midline Chest Chest palpation & inspection: normal inspection of the chest Resp Effort & Inspection: normal respiratory effort and able to speak in complete sentences Cardio Rate: regular rate GI Inspection: Yes normal to inspection General: Yes no CVA tenderness Back/Spine/Pelvis Back: no CVA tenderness Skin General skin exam: no rashes or lesions noted Neuro General: patient oriented x3 Extrem General: Yes normal to inspection Psych Appearance: grossly normal and well kempt Mental Status: mental status grossly normal Speech and movement: Normal speech and movement present and Clear speech present Affect: normal affect Attitude: cooperative Thought process: Normal thought process present Thought content: Normal thought content present Insight: Fair insight present (Psych) Judgement: Fair judgement present (Psych) Results AMB Urinalysis, Automated UA Leukoctes 0 Celeste/uL Last Edit by MATTHEW Delvalle on 10/02/24 09:14 UA Nitrite Last Edit by MATTHEW Delvalle on 10/02/24 09:14 UA Urobilinogen 0.2 mg/dL Last Edit by Estrellita Louise, [facility] on 10/02/24 09:1 4 UA Protein 15 mg/dL Last Edit by Estrellita Vance, [facility] on 10/02/24 09:14 UA pH 6.0 Last Edit by Estrellita Vance, [facility] on 10/02/24 09:14 UA Blood 10 Rei/uL Last Edit by Estrellita Vance, [facility] on 10/02/24 09:14 UA Specific Logan 1.020 Last Edit by Estrellita Vance, [facility] on 10/02/24 09: 14 UA Ketone Negative Last Edit by Estrellita Vance, [facility] on 10/02/24 09:14 UA Bilirubin 0 mg/dL Last Edit by Estrellita Vance, [facility] on 10/02/24 09:14 UA Glucose 0 mg/dL Last Edit by Estrellita Vance, [facility] on 10/02/24 09:14 Results Reviewed Results Reviewed: Laboratory Last Values Urine pH (Auto) 6.0 10/02/24 08:56 Specific Logan (Auto) 1.020 10/02/24 08:56 Urine Protein (Auto) 15 mg/dL 10/02/24 08:56 Glucose (UA)(Auto) 0 mg/dL 10/02/24 08:56 Urine Ketones (Auto) Negative 10/02/24 08:56 Urine Blood (Auto) 10 Rei/uL 10/02/24 08:56 Urine Bilirubin (Auto) 0 mg/dL 10/02/24 08:56 Urine Urobilinogen (Auto) 0.2 mg/dL 10/02/24 08:56 Leukocyte Esterase (Auto) 0 Celeste/uL 10/02/24 08:56 Assessment & Plan Assessment & Plan (1) Gross hematuria: Code(s): R31.0 - Gross hematuria Category: Medical (2) Stress incontinence (female) (male): Code(s): N39.3 - Stress incontinence (female) (male) Category: Medical (3) Marijuana dependence: Code(s): F12.20 - Cannabis dependence, uncomplicated Category: Medical (4) Nicotine dependence in remission: Code(s): F17.201 - Nicotine dependence, unspecified, in remission Category: Medical Plan In office urinalysis results with the patient today; as noted above; will send for urine cytology. Will obtain CT urogram for further assessment evaluation. BUN and creatinine ordered for imaging. We discussed potential causes of gross hematuria as well as further workup in risks and benefits of these interventions. We discussed the importance of limiting/quitting marijuana dependence. We discussed further treatment options of stress incontinence. Follow-up next available in office cystoscopy with imaging and labs to be completed prior; or sooner with any issues, concerns, and or questions. Orders: Orders AMB Urinalysis Automated Today Z13.9 - Encounter for screening, unspecified Urine Cytology Today R31.29 - Other microscopic hematuria CT urogram Today R31.0 - Gross hematuria Blood Urea Nitrogen Today R31.0 - Gross hematuria Creatinine Today R31.0 - Gross hematuria Patient Instructions: The patient had an opportunity to ask questions regarding the treatment plan. All questions were answered. Physical exam, labs, and imaging were discussed and reviewed in detail. As well as risks, benefits, and discussion of treatment choices. No major barriers to understanding were identified. The patient expressed understanding and agreement with the above treatment plan. The patient was made aware they should contact our office by phone for worsening of their current condition, the appearance of new symptoms, or with any questions or concerns. Compliance is encouraged with any medications and follow up testing that is ordered. It is a privilege to be allowed the opportunity to participate in? your urological care.? Again, if you have any questions or concerns If you have any questions or concerns please do not hesitate to contact me. The office is [phone]. This note is constructed using voice recognition software. While every effort has been made to ensure accuracy station manager errors may have been included. Yours sincerely, JOLLY Burger Coding Level of Care Code New Pt Level 3 (19316) Diagnoses Gross hematuria R31.0 Stress incontinence (female) (male) N39.3 Marijuana dependence F12.20 Nicotine dependence in remission F17.201
== END 2024-10-02 09:37 | disposition home or self-care (01) ==
LOC: HO.HUSH 08:38
PROVIDERS: PCP General Practice; Visit Provider Nurse Practitioner Family
DX: R31.0 Gross hematuria (principal); N39.3 Stress incontinence (female) (male); F12.20 Cannabis dependence, uncomplicated; F17.201 Nicotine dependence, unspecified, in remission; Z13.9 Encounter for screening, unspecified
CPT/HCPCS: 99203

== ENCOUNTER 2024-10-15 12:37 | Outpatient (REF) | payer MEDICAID, SELFPAY ==
--- NOTE | ~2024-10-15 | US_ITS ---
EXAMINATION: US PELVIS TRANSABDOMINAL AND TRANSVAGINAL HISTORY: N83.299 - Other ovarian cyst, unspecified side COMPARISON: Comparison is made with the prior examination dated 08/13/2024. TECHNIQUE: Transabdominal and endovaginal real-time 2D moya-scale ultrasound was performed. FINDINGS: Uterus: The uterus is normal in size, measuring 8.7 x 3.9 x 4.2 cm. Myometrium has a normal echotexture. Again seen is a left-sided fibroid measuring 7 x 6 x 7 mm without change. Endometrium: The endometrial stripe measures 3 mm in thickness. An IUD is seen in appropriate position in the endometrial canal. Right ovary: The right ovary measures 3.1 x 1.4 x 2.3 cm. The right ovary is normal in size and echotexture. Left ovary: The left ovary measures 4.1 x 2.4 x 3.0 cm. There is a 3.6 x 2.4 x 2.6 cm left ovarian simple cyst which is larger than on the prior study (previously 2.1 x 2.7 x 1.3 cm). Pelvic fluid: none. US/US pelvic and transvaginal IMPRESSION: 1. IUD in appropriate position in the endometrial cavity. 2. 3.6 x 2.4 x 2.6 cm left ovarian simple cyst is larger than on the prior study. Continued follow-up is recommended. Electronically signed by: Everett Rich MD 10/15/2024 01:48 PM EDT
--- OUTSIDE RECORDS SUMMARY | 2024-10-15 13:46 | XMS_ITS | Encounter Summary ---
Author Organization [employer] Address [address] [facility] [address] [place] [address] Care Team Providers Care Pug Machine Operator Name Role Phone Jessi Dueñas MD Primary Care Provider [phone] Reason for Referral * Consultation (Routine) - Closed Specialty Diagnoses / Procedures Referred By Contac t Referred To Contact Physical Therapy Diagnoses Acute bilateral low back pain without sciatica Chronic pain of both knees Bilateral hand pain Jessi Dueñas MD [address] [place] [id number] Phone: tel: fax: [facility] [address] Phone: tel: fax: Referral ID Status Reason Start Date Expiration Date V isits Requested Visits Authorized [id number] Closed Specialty Services Required 04/17/2024 04/17/2025 20 20 Encounter Details Date Type Department Care Team (Late st Contact Info) Description 04/17/2024 Orders Only [facility] [address] [place] [id number] Jessi Dueñas MD [address] [place] [address] Acute bilateral low back pain without sciatica [...] Description 10/30/2024 3:00 PM EDT Office Visit [facility] [address] [place] [address] Jessi Dueñas MD [address] [place] [address] 11/07/2024 1:00 PM EDT Clinical Support [facility] [address] [place] [address] 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, HERNANDEZ Scheduled Referrals Name Type [...] documented as of this encounter Care Teams Pug Machine Operator Relationship Specialty Start Date End Date Jessi Dueñas MD [address] [place] [id number] PCP - General Family Medicine 11/24/20 Mikayla Bhagat ProfilerFinance Executive 05/09/23 documented as of this encounter
== END 2024-10-15 12:38 | disposition home or self-care (01) ==
LOC: HO.US 12:37
PROVIDERS: PCP General Practice; Visit Provider Obstetrics & Gynecology
DX: N83.299 Other ovarian cyst, unspecified side (principal)
CPT/HCPCS: 76830; 76856

== ENCOUNTER → 2024-10-15 12:39 | Outpatient (BNV) | payer MEDICAID, SELFPAY | PROVIDERS: PCP General Practice; Visit Provider Radiology Diagnostic Radiology | DX: N83.292 Other ovarian cyst, left side (principal) | CPT/HCPCS: 76830; 76856 ==

== ENCOUNTER 2024-10-16 11:04 | Outpatient (AMB) | payer MEDICAID, SELFPAY ==
[2024-10-16 11:32] VITALS: BMI 18.6
--- NOTE | 2024-10-16 11:32 | A.OFFVIS_ITS ---
Vital Signs 10/16/24 11:32 Height 5 ft 7 in Weight 119 lb BMI 18.6 Intake Visit Reasons: Ultrasound follow up Cobol Application Developer Required: Yes Cobol Application Developer Language: Primer Inserting Machine Adjuster Services: Cobol Application Developer Present (in person) Cobol Application Developer Name: Umu DA SILVA Information Interpreted: non-clinical & clinical Accompanied by: Self / Same As Patient Allergies cephalexin (From Keflex) Allergy (Intermediate, Verified 10/16/24 11:41) Eye Swelling morphine Allergy (Intermediate, Verified 10/16/24 11:41) Itching shellfish derived (SHELLFISH DERIVED) Allergy (Intermediate, Verified 10/16/24 11:41) swelling HPI Comments Details: Presenting for ultrasound follow-up done recently which showed the following: Uterus: The uterus is normal in size, measuring 8.7 x 3.9 x 4.2 cm. Myometrium has a normal echotexture. Again seen is a left-sided fibroid measuring 7 x 6 x 7 mm without change. Endometrium: The endometrial stripe measures 3 mm in thickness. An IUD is seen in appropriate position in the endometrial canal. Right ovary: The right ovary measures 3.1 x 1.4 x 2.3 cm. The right ovary is normal in size and echotexture. Left ovary: The left ovary measures 4.1 x 2.4 x 3.0 cm. There is a 3.6 x 2.4 x 2.6 cm left ovarian simple cyst which is larger than on the prior study (previously 2.1 x 2.7 x 1.3 cm). Pelvic fluid: none. [facility] Medical History H. pylori infection Back pain Left knee pain Encounter for IUD removal and reinsertion IUD check up Diarrhea C. difficile colitis Asthma GERD (gastroesophageal reflux disease) Bipolar disorder Anxiety and depression Constipation Diarrhea Surgical History History of section History of esophagogastroduodenoscopy (EGD) H/O colonoscopy History of tubal ligation Family History Family/Other Cancer Other Family history of arthritis Social History Alcohol intake: never Patient Tobacco Use Status: Former Tobacco user Tobacco use type: Cigarette Substance Use Type: Marijuana Female Reproductive History Menstrual Age of Menarche: 17 Review of Systems Const All systems reviewed & are unremarkable except as noted in HPI and below Reports as per HPI and Reports no additional complaints GI Reports no additional complaints Reports no additional complaints Physical Exam Vital Signs: BMI result Body Mass Index 18.6 Assessment & Plan Assessment & Plan (1) Ovarian cyst: Code(s): N83.209 - Unspecified ovarian cyst, unspecified side Category: Medical Plan: Discussed with the patient the results of the ultrasound showing a simple ovarian cyst no need for further follow-up. The patient was reassured (2) Uterine myoma: Code(s): D25.9 - Leiomyoma of uterus, unspecified Category: Medical Plan: Discussed with the patient the findings on pelvic ultrasound & the risk of myosarcoma; in addition reviewed with the patient that malignancy and pre malignancy cannot be ruled out without hysterectomy for pathological evaluation ; furthermore, explained to the patient the limitation of pelvic ultrasound and endometrial biopsy in the setting. Discussed with the patient the options of treatment including expectant management versus hysterectomy; the pros and cons, risks benefits of each approach were discussed with the patient including the fact that in cases of myosarcoma, surgical treatment can lead to early diagnosis and positively affects the prognosis; after further discussion, the patient decided to proceed with expectant management. Will repeat pelvic ultrasound periodically. Instructions given to patient to call in case any of the following occurs: pressure symptoms, abnormal uterine bleeding, pelvic pain; and to schedule a 12 months pelvic ultrasound (order placed) and a follow-up appointment . All questions answered, the patient verbalized understanding and agreed with the plan . Orders: Orders US pelvic and transvaginal 12 Months D25.9 - Leiomyoma of uterus, unspecified Coding Level of Care Code Est Pt Level 3 (50860) Diagnoses Ovarian cyst N83.209 Uterine myoma D25.9
--- OUTSIDE RECORDS SUMMARY | 2024-10-16 12:00 | XMS_ITS | Encounter Summary ---
Author Organization [employer] Address [address] [facility] [address] [place] [address] Care Team Providers Care Rig Welder Name Role Phone Jessi Dueñas MD Primary Care Provider [phone] Reason for Referral * Consultation (Routine) - Closed Specialty Diagnoses / Procedures Referred By Contac t Referred To Contact Physical Therapy Diagnoses Acute bilateral low back pain without sciatica Chronic pain of both knees Bilateral hand pain Jessi Dueñas MD [address] [place] [phone] Phone: tel: fax: [facility] [address] Phone: tel: fax: Referral ID Status Reason Start Date Expiration Date V isits Requested Visits Authorized [id number] Closed Specialty Services Required 04/17/2024 04/17/2025 20 20 Encounter Details Date Type Department Care Team (Late st Contact Info) Description 04/17/2024 Orders Only [facility] [address] [place] [phone] Jessi Dueñas MD [address] [place] [address] Acute bilateral low back pain without sciatica [...] Description 10/30/2024 3:00 PM EDT Office Visit [facility] [address] [place] [address] Jessi Dueñas MD [address] [place] [address] 11/07/2024 1:00 PM EDT Clinical Support [facility] [address] [place] [address] 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, HERNANDEZ Scheduled Referrals Name Type [...] documented as of this encounter Care Teams Rig Welder Relationship Specialty Start Date End Date Jessi Dueñas MD [address] [place] [phone] PCP - General Family Medicine 11/24/20 Mikayla Bhagat Concrete Building AssemblerStarch Mangle Tender 05/09/23 documented as of this encounter
== END 2024-10-16 11:53 | disposition home or self-care (01) ==
LOC: HO.HWS 11:04
PROVIDERS: PCP General Practice; Visit Provider Obstetrics & Gynecology
DX: N83.209 Unspecified ovarian cyst, unspecified side (principal); D25.9 Leiomyoma of uterus, unspecified
CPT/HCPCS: 99213

== ENCOUNTER → 2024-10-16 11:04 | Outpatient (BNVA) | payer MEDICAID, SELFPAY | PROVIDERS: PCP General Practice; Visit Provider Obstetrics & Gynecology | DX: N83.292 Other ovarian cyst, left side (principal); D25.9 Leiomyoma of uterus, unspecified | CPT/HCPCS: 99212 ==

== ENCOUNTER 2024-11-27 13:17 | Outpatient (AMB) | payer MEDICAID, SELFPAY ==
--- NOTE | 2024-11-27 13:27 | MHC.OFFVIS ---
Vital Signs 11/27/24 13:31 Height 5 ft 7 in Weight 115 lb BMI 18.0 Intake Visit Reasons: OV-Left knee inj follow up last inj-08/27/24 Intake Note: Kera is a 43 year old female who presents today as a follow up for her Left knee injection, last inj-08/27/24. Patient states that the last injection did give some relief. Patient states that the left knee has been buckling when she walks. Patient states that she would like to get another injection in the left knee. She takes Tylenol as needed for discomfort. She has tried physical therapy exercises which aggravated her pain. Enrollment Management Vice President Required: Yes Enrollment Management Vice President Services: Enrollment Management Vice President Offered & Declined Enrollment Management Vice President Name: Kira- Daughter. Allergies cephalexin (From Keflex) Allergy (Intermediate, Verified 11/27/24 13:31) Eye Swelling morphine Allergy (Intermediate, Verified 11/27/24 13:31) Itching shellfish derived (SHELLFISH DERIVED) Allergy (Intermediate, Verified 11/27/24 13:31) swelling Medication List - Last Reconciled 11/27/24 by Sam Panda MD acetaminophen ER 650 mg PO Q8H PRN albuterol sulfate 2.5 mg inhalation Q4-6H calcium carbonate (Antacid Ext Str (calcium carb)) 1 - 2 tabs PO DIRECTED cholecalciferol (vitamin D3) 50 mcg PO QAM clonazepam 1 mg PO TID PRN cyproheptadine 4 mg PO BID diphenhydramine HCl (Banophen) 25 - 50 mg PO BEDTIME PRN esomeprazole magnesium (Nexium) 40 mg PO DAILY famotidine 20 mg PO QPM fiber tabs PO BID fluoxetine 40 mg PO QAM fluticasone propionate 220 mcg/actuation (Flovent HFA) 1 puff inhalation BID hydrocortisone 0.5% 1 appl topical DAILY PRN ibuprofen 800 mg PO Q8H PRN imipramine HCl 50 mg PO DAILY Lactobacillus acidoph-L.bulgar 1 million cell 1 tab PO QAM loperamide 4 mg (2 x 2 mg) PO TID PRN loratadine (Allergy Relief (loratadine)) 10 mg PO DAILY magnesium hydroxide (Milk of Magnesia) 5 mL PO BEDTIME methylcellulose (laxative) (Citrucel) 500 mg PO BID mometasone 200 mcg/actuation (Asmanex HFA) 1 puff inhalation BID montelukast 10 mg PO QPM multivit-iron sulf-folic acid 15 mg iron- 400 mcg (Tab-A-Kisha Multivitamin w-iron) 1 tab PO QAM ondansetron 8 mg PO Q12H PNV,calcium 83-fmjq-cjaaf acid 27 mg iron- 1 mg ( Vitamins Plus Low Iron) 1 tab PO QAM riboflavin (vitamin B2) (Vitamin B-2) 400 mg PO DAILY ropinirole 4 mg PO BEDTIME sennosides (senna) 17.2 mg (2 x 8.6 mg) PO BEDTIME PRN tramadol 50 mg PO Q12H PRN zolpidem 5 mg PO BEDTIME PRN PFSH Medical History H. pylori infection Back pain Left knee pain Encounter for IUD removal and reinsertion IUD check up Diarrhea C. difficile colitis Asthma GERD (gastroesophageal reflux disease) Bipolar disorder Anxiety and depression Constipation Diarrhea Surgical History History of section History of esophagogastroduodenoscopy (EGD) H/O colonoscopy History of tubal ligation Family History Family/Other Cancer Other Family history of arthritis Social History Alcohol intake: never Patient Tobacco Use Status: Former Tobacco user Tobacco use type: Cigarette Substance Use Type: Marijuana Female Reproductive History Menstrual Age of Menarche: 17 Physical Exam Vital Signs: BMI result Body Mass Index 18.0 Const Other: Well-nourished well-developed very friendly female awake alert and oriented x3 in no acute distress Extrem Other: Left knee examination shows a minimal effusion, mild crepitus with range of motion, no instability Office Procedures AMB Joint Injection/Aspiration Joint Injection/Aspiration Primary Site: left knee Prep: site was prepped using aseptic technique Injected: 40 mg of, DepoMedrol and 1% plain lidocaine Procedure: The patient tolerated the procedure well Coding 95012 - Large joint Procedure code (CPT) selection complete Results Reviewed Results Reviewed: X-rays of the patient's left knee taken previously show joint space narrowing, subchondral sclerosis, no acute bony abnormalities Assessment & Plan Assessment & Plan (1) Arthritis of left knee: Code(s): M17.12 - Unilateral primary osteoarthritis, left knee Category: Medical Plan Ms. Lc Nicole presents with left knee pain due to degenerative joint disease. The risks and benefits of a left knee cortisone injection were discussed at length with the patient. The patient wished to proceed. She tolerated the injection well. She will continue with her home exercise program. She will contact me prior to her follow-up appointment in 3 months should any questions or concerns arise. Feel free to call me at any time should questions regarding her orthopedic management arise. I spent 21 minutes in reviewing the patient's records and imaging studies, seeing the patient and documenting in the medical record. Orders: Orders AMB Joint Injection/Aspiration Today M17.12 - Unilateral primary osteoarthritis, left knee Coding Level of Care Code Est Pt Level 3 (86117) Complex EM visit Add On G2211 Diagnoses Arthritis of left knee M17.12 CPT Codes Coding - 55478 Large joint: 39139 - Large joint ([id number])
[2024-11-27 13:31] VITALS: BMI 18.0
--- OUTSIDE RECORDS SUMMARY | 2024-11-27 13:57 | XMS_ITS | Encounter Summary ---
Author Organization [employer] Address 75 [facility] 7t [place] [address] Care Team Providers Care Aerospace Engineer Officer Armament Name Role Phone Jessi Dueñas MD Primary Care Provider [phone] Reason for Referral * Consultation (Routine) - Closed Specialty Diagnoses / Procedures Referred By Contac t Referred To Contact Physical Therapy Diagnoses Acute bilateral low back pain without sciatica Chronic pain of both knees Bilateral hand pain Jessi Dueñas MD [address] [place] [address] Phone: tel: fax: [facility] [address] Phone: tel: fax: Referral ID Status Reason Start Date Expiration Date V isits Requested Visits Authorized [id number] Closed Specialty Services Required 04/17/2024 04/17/2025 20 20 Encounter Details Date Type Department Care Team (Late st Contact Info) Description 04/17/2024 Orders Only [facility] [address] [place] [address] Jessi Dueñas MD [address] [place] [address] Acute bilateral low back pain without sciatica [...] Care Team (Late st Contact Info) Description 01/13/2025 1:30 PM EDT Office Visit [facility] [address] [place] [address] Jessi Dueñas MD 230 [place] [address] 02/04/2025 9:30 AM EST Clinical Support [facility] [address] [place] [address] 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, HERNANDEZ Scheduled Referrals Name Type [...] documented as of this encounter Care Teams Aerospace Engineer Officer Armament Relationship Specialty Start Date End Date Jessi Dueñas MD [address] [place] [address] PCP - General Family Medicine 11/24/20 Mikayla Bhagat Changer FixerBusiness Development Sales Executive 05/09/23 documented as of this encounter
--- OUTSIDE RECORDS SUMMARY | 2024-11-27 13:57 | XMS_ITS | Encounter Summary ---
Author Organization [employer] Address [address] [facility] [address] 7t [place] [address] Care Team Providers Care Muck Miner Name Role Phone Jessi Dueñas MD Primary Care Provider [phone] Reason for Visit * Reason Onset Date [...] (Late st Contact Info) Description 06/03/2024 Refill [facility] 230 [place], [place] [phone] Jessi Dueñas MD 230 [place], [place] [phone] Fibromyalgia Social History Tobacco Use Types Packs/Day [...] Description 01/13/2025 1:30 PM EDT Office Visit [facility] [address] [place] [address] Jessi Dueñas MD [address] [place] [address] 02/04/2025 9:30 AM EST Clinical Support [address] [address] 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, HERNANDEZ documented as of this encounter Visit Diagnoses Diagnosis Fibromyalgia Unspecified myalgia and myositis documented in this encounter Additional Health Concerns Assessment Noted Time PHQ-9 Depression Total Score: 8 09/19/19 24 11:07 AM EDT documented as of this encounter Care Teams Muck Miner Relationship Specialty Start Date End Date Jessi Dueñas MD [address] [place] [address] PCP - General Family Medicine 11/24/20 Mikayla Bhagat Tie Tape Machine OperatorCounterintelligence Agent 05/09/23 documented as of this encounter
--- OUTSIDE RECORDS SUMMARY | 2024-11-27 13:58 | XMS_ITS | Encounter Summary ---
Author Organization [employer] Address [address] [facility] [address] 7t [place] [address] Care Team Providers Care Behavior Interventionist Name Role Phone Jessi Dueñas MD Primary Care Provider [phone] Reason for Visit * Reason Comments Med Refill Encounter Details Date Type Department Care Team ([facility] st Contact Info) Description 09/10/2024 Refill [facility] 230 [place] [address] Jessi Dueñas MD 230 [place] [address] Fibromyalgia Social History Tobacco Use Types Packs/Day Years Used Date Smoking Tobacco: Never Passive Smoke Exposure: Never Smokeless Tobacco: Never Alcohol Use Standard Drinks/Week Comments Never 0 (1 standard drink = 0.6 oz pur e alcohol) Alcohol Answer Date Recorded How often do you have a drink containing alcohol ? 0 07/30/2024 How many drinks containing a lcohol do you have on a typical day when you are drinking? 0 07/30/2024 How often do you have six or more drinks on one occasion? 0 07/30/2024 Depression Answer Date Recorded Patient Health Questionnaire-9 Score 24 07/30/2024 Patient Health Questionnaire-9 Score 24 07/30/2024 Last PHQ-9: Questionnaire Data Not on file 0 07/30/2024 Housing Stability Answer Date Recorded What is [...] things needed for daily living? No 05/27/2024 Intimate Partner Violence Answer Date R ecorded Within the last year, have y ou been afraid of your partner or ex-partner? 2 07/30/2024 Within the last year, have y ou been humiliated or emotionally abused in other ways by your partner or ex-partner? 2 Within the last year, have y ou been kicked, hit, slapped, or otherwise physically hurt by your partner or ex-partner? 2 07/30/2024 Within the last year, have y ou been raped or forced to have any kind of sexual activity by your partner or ex-partner? 2 07/30/2024 Utilities Answer Date Recorded In the past 12 months, has t he electric, gas, oil or water company threatened to shut off services in your home? No 05/27/2024 Depression Answer Date Recorded Patient Health Questionnaire-2 Score 6 07/30/2024 Internet Access Answer Date Recorded Internet Access [...] Description 01/13/2025 1:30 PM EDT Office Visit [facility] 230 [place] [address] Jessi Dueñas MD 230 [place] [address] 02/04/2025 9:30 AM EST Clinical Support [facility] 230 [facility] [place] [address] 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, RN documented as of this encounter Visit Diagnoses Diagnosis Fibromyalgia Unspecified myalgia and myositis documented in this encounter Additional Health Concerns Assessment Noted Time PHQ-9 Depression Total Score: 24 025 9:47 AM EDT documented as of this encounter Care Teams Behavior Interventionist Relationship Specialty Start Date End Date Jessi Dueñas MD [facility] [place] [place] [address] PCP - General Family Medicine 11/24/20 Mikayla Bhagat Board FillerNylon Operator 05/09/23 documented as of this encounter
--- OUTSIDE RECORDS SUMMARY | 2024-11-27 13:58 | XMS_ITS | Encounter Summary ---
Author Organization [employer] Address [address] [facility] [address] 7t [place] [address] Care Team Providers Care Resaw Machine Operator Name Role Phone Jessi Dueñas MD Primary Care Provider [phone] Encounter Details Date Type Department Care Team ([facility] st Contact Info) Description 02/08/2023 Telephone [facility] [address] [place] [address] Jessi Dueñas MD 230 [place] [address] Social History Tobacco Use Types Packs/Day Years [...] Description 01/13/2025 1:30 PM EDT Office Visit [facility] [address] [place] [address] Jessi Dueñas MD [address] [place] [address] 02/04/2025 9:30 AM EST Clinical Support [address] [address] 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, HERNANDEZ documented as of this encounter Visit Diagnoses Not on filedocumented in this encounter Additional Health Concerns Assessment Noted Time PHQ-9 Depression Total Score: 20 023 9:49 AM EDT documented as of this encounter Care Teams Resaw Machine Operator Relationship Specialty Start Date End Date Jessi Dueñas MD [address] [place] [address] PCP - General Family Medicine 11/24/20 Mikayla Bhagat Roll HandlerSheetfed Press Operator 05/09/23 documented as of this encounter
--- OUTSIDE RECORDS SUMMARY | 2024-11-27 13:58 | XMS_ITS | Encounter Summary ---
Author Organization [employer] Address 75 [facility] 7t [place] [address] Care Team Providers Care Shredder Picker Name Role Phone Jessi Dueñas MD Primary Care Provider [phone] Reason for Visit * Reason Comments Med Refill Encounter Details Date Type Department Care Team ([facility] st Contact Info) Description 11/23/2023 Refill [facility] 230 [place] [address] Jessi Dueñas MD 230 [place] [address] Social History Tobacco Use Types Packs/Day Years [...] Description 01/13/2025 1:30 PM EDT Office Visit [facility] [address] [place] [address] Jessi Dueñas MD [address] [place] [address] 02/04/2025 9:30 AM EST Clinical Support [address] [address] 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, RN documented as of this encounter Visit Diagnoses Not on filedocumented in this encounter Additional Health Concerns Assessment Noted Time PHQ-9 Depression Total Score: 8 09/19/19 24 11:07 AM EDT documented as of this encounter Care Teams Shredder Picker Relationship Specialty Start Date End Date Jessi Dueñas MD [address] [place] [address] PCP - General Family Medicine 11/24/20 Mikayla Bhagat Account Group SupervisorDomestic Housekeeper 05/09/23 documented as of this encounter
--- OUTSIDE RECORDS SUMMARY | 2024-11-27 13:58 | XMS_ITS | Encounter Summary ---
Author Organization [employer] Address [address] [facility] [address] 7t [place] [address] Care Team Providers Care Guest Service Agent Name Role Phone Jessi Dueñas MD Primary Care Provider [phone] Reason for Visit * Reason Onset Date Comments Med Refill 11/27/2024 Encounter Details Date Type Department Care Team (Late st Contact Info) Description 11/27/2024 Refill [facility] 230 [place] [address] Jessi Dueñas MD 230 [place] [address] Polyarthralgia; Fibromyalgia Social History Tobacco Use Types Packs/Day [...] Answer Date Recorded Patient Health Questionnaire-9 Score 07/30/2024 Patient Health Questionnaire-9 Score 07/30/2024 Last PHQ-9: Questionnaire Data Not on [...] encounter Miscellaneous Notes * Telephone Encounter - Agnieszka Fermin - 11/27/2024 10:35 AM EDT TC from pt requesting medication refill. Medications needing refill : traMADol (Ultram) 50 MG tablet To be sent to: [facility] - [place], [place] - [address] [place] [address] documented in this encounter Plan of Treatment Upcoming Encounters Date Type Department Care Team ([facility] st Contact Info) Description 01/13/2025 1:30 PM EDT Office Visit [facility] MED[facility]INE [address] [place] [address] Jessi Dueñas MD [address] [place] [address] 02/04/2025 9:30 AM EST Clinical Support [address] [address] 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 RN documented as of this encounter Visit Diagnoses Diagnosis Polyarthralgia Pain in joint, multiple sites Fibromyalgia Unspecified myalgia and myositis documented in this encounter Additional Health Concerns Assessment Noted Time PHQ-9 Depression Total Score: 24 025 9:47 AM EDT documented as of this encounter Care Teams Guest Service Agent Relationship Specialty Start Date End Date Jessi Dueñas MD [address] [place] [address] PCP - General Family Medicine 11/24/20 Mikayla Bhagat Mechanical Integrity SpecialistShip Yard Electrical Person 05/09/23 documented as of this encounter
--- OUTSIDE RECORDS SUMMARY | 2024-11-27 13:58 | XMS_ITS | Encounter Summary ---
Author Organization [employer] Address [address] [facility] [address] 7t [place] [address] Care Team Providers Care Police Cadet Name Role Phone Jessi Dueñas MD Primary Care Provider [phone] Reason for Visit * Reason Onset Date Comments PT-1 08/05/2024 Encounter Details Date Type Department Care Team (Late st Contact Info) Description 08/05/2024 Telephone [facility]INE 230 [place] [address] Jessi Dueñas MD 230 [place] [address] PT-1 Social History Tobacco Use Types Packs/Day Years [...] Questionnaire-9 Score 07/30/2024 Patient Health Questionnaire-9 Score 24 07/30/2024 [...] * Telephone Encounter - Murali Ledbetter - 08/05/2024 9:15 AM EDT Tc from pt requesting status of PT-[address] [place] [address] Please return call to pt with updates [phone] documented in this encounter Plan of Treatment Upcoming Encounters Date Type Department Care Team (Late st Contact Info) Description 01/13/2025 1:30 PM EDT Office Visit [address] [address] Jessi Dueñas MD [address] [place] [address] 02/04/2025 9:30 AM EST Clinical Support [address] [address] 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 RN documented as of this encounter Visit Diagnoses Not on filedocumented in this encounter Additional Health Concerns Assessment Noted Time PHQ-9 Depression Total Score: 24 025 9:47 AM EDT documented as of this encounter Care Teams Police Cadet Relationship Specialty Start Date End Date Jessi Dueñas MD [address] [place] [address] PCP - General Family Medicine 11/24/20 Mikayla Bhagat Electrical Technician InstructorSheet Metal Production Worker 05/09/23 documented as of this encounter
--- OUTSIDE RECORDS SUMMARY | 2024-11-27 13:58 | XMS_ITS | Encounter Summary ---
Author Organization [employer] Address [address] [facility] [address] 7t [place] [address] Care Team Providers Care Core Drilling Supervisor Name Role Phone Jessi Dueñas MD Primary Care Provider [phone] Reason for Visit * Reason Comments Med Refill Encounter Details Date Type Department Care Team ([facility] st Contact Info) Description 09/10/2024 Refill [facility] 230 [place] [address] Jessi Dueñas MD 230 [place] [address] Fibromyalgia Social History Tobacco Use Types Packs/Day [...] Description 01/13/2025 1:30 PM EDT Office Visit [facility] 230 [place] [address] Jessi Dueñas MD 230 [place] [address] 02/04/2025 9:30 AM EST Clinical Support [facility] [address] [place] [address] 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, RN documented as of this encounter Visit Diagnoses Diagnosis Fibromyalgia Unspecified myalgia and myositis documented in this encounter Additional Health Concerns Assessment Noted Time PHQ-9 Depression Total Score: 24 025 9:47 AM EDT documented as of this encounter Care Teams Core Drilling Supervisor Relationship Specialty Start Date End Date Jessi Dueñas [place] [address] PCP - General Family Medicine 11/24/20 Mikayla Bhagat Hr LeaderMachine Puller Over 05/09/23 documented as of this encounter
--- OUTSIDE RECORDS SUMMARY | 2024-11-27 13:58 | XMS_ITS | Encounter Summary ---
Author Organization [employer] Address [address] [facility] [address] 7t [place] [address] Care Team Providers Care Utilization Engineer Name Role Phone Jessi Dueñas MD Primary Care Provider Reason for Visit * Reason Onset Date Comments Call Back Request 01/23/2024 Encounter Details Date Type Department Care Team ([facility] st Contact Info) Description 01/23/2024 Telephone [facility] 230 [place] [address] Jessi Dueñas MD 230 [place] [address] Call Back Request Social History Tobacco Use [...] no scripts sent. Please contact pt at [phone]. (Qatari Speaker) documented in this encounter Plan of Treatment Upcoming Encounters Date Type Department Care Team (Late st Contact Info) Description 01/13/2025 1:30 PM EDT Office Visit [facility] MED[facility] [address] [place] [address] Jessi Dueñas MD [address] [place] [address] 02/04/2025 9:30 AM EST Clinical Support [address] [address] 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, HERNANDEZ documented as of this encounter Visit Diagnoses Not on filedocumented in this encounter Additional Health Concerns Assessment Noted Time PHQ-9 Depression Total Score: 8 09/19/19 24 11:07 AM EDT documented as of this encounter Care Teams Utilization Engineer Relationship Specialty Start Date End Date Jessi Dueñas MD 230 [place] [address] PCP - General Family Medicine 11/24/20 Mikayla Bhagat Gang Supervisor Pipe LinesEmergency Telecommunications Dispatcher 05/09/23 documented as of this encounter
--- OUTSIDE RECORDS SUMMARY | 2024-11-27 13:58 | XMS_ITS | Encounter Summary ---
Author Organization [employer] Address 75 [facility] [address] 7t [place] [address] Care Team Providers Care Vacuum Extractor Operator Name Role Phone Jessi Dueñas MD Primary Care Provider [phone] Encounter Details Date Type Department Care Team (Late st Contact Info) Description 01/11/2023 Orders Only [facility] 230 [place] [address] Jessi Dueñas MD 230 [place] [address] Chronic pain of both knees (Primary Dx) [...] is your housing situation today? I have obla john 01/11/[address] you [...] Description 01/13/2025 1:30 PM EDT Office Visit [facility] [address] [place] [address] Jessi Dueñas MD [address] [place] [address] 02/04/2025 9:30 AM EST Clinical Support [facility] [address] [place] [address] 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 RN documented as of this encounter Visit Diagnoses Diagnosis Chronic pain of both knees- Primary documented in this encounter Additional Health Concerns Assessment Noted Time PHQ-9 Depression Total Score: 20 023 9:49 AM EDT documented as of this encounter Care Teams Vacuum Extractor Operator Relationship Specialty Start Date End Date Jessi Dueñas MD [address] [place] [address] PCP - General Family Medicine 11/24/20 Mikayla Bhagat Enrobing Machine FeederFeeder Associate 05/09/23 documented as of this encounter
--- OUTSIDE RECORDS SUMMARY | 2024-11-27 13:58 | XMS_ITS | Encounter Summary ---
Author Organization [employer] Address 75 [facility] 7t [place] [address] Care Team Providers Care Vocational Rehabilitation Technician Name Role Phone Jessi Dueñas MD Primary Care Provider [phone] Reason for Visit * Reason Onset Date Comments Nurse Triage 02/07/2023 Encounter Details Date Type Department Care Team ([facility] st Contact Info) Description 02/07/2023 Telephone [facility]INE 230 [place] [address] Jessi Dueñas MD 230 [place] [address] Nurse Triage Social History Tobacco Use Types Packs/Day Years Used Date Smoking Tobacco: Never Passive Smoke Exposure: Never Smokeless Tobacco: Never Alcohol Use Standard Drinks/Week Comments Never 0 (1 standard drink = 0.6 oz pur e alcohol) Depression Answer Date Recorded Patient Health Questionnaire-9 Score 20 01/04/2023 Housing Stability Answer Date Recorded What is your housing situation today? I have bolajovita john 01/17/[address] you [...] 02/07/2023 11:26 AM EST Triage call with [facility] Medical Director/Head Team Physician ID [id number] Pt reports [place] [facility] [place] for abdominal pain and migraines. Report is requested from [facility] clinical long term care phlebotomist. Pt reports was supposed to be getting [...] worse * Telephone Encounter - Jose R Perez - 02/07/2023 10:22 AM EST Symptom: Abdominal Pain - Female - Not and migraine Outcome: Schedule an urgent appointment (within 4 hours) or talk to a nurse or provider soon Reason: Getting worse The caller accepted this outcome Tc from patient calling in regards to migraine and abdominal pain also lower back pain states she went [place] [facility] [place]/06 and did nothing. Patient speaks moroccan documented in this encounter Plan of Treatment Upcoming Encounters Date Type Department Care Team (Late st Contact Info) Description 01/13/2025 1:30 PM EDT Office Visit [facility] [address] [place] [address] Jessi Dueñas MD [address] [place] [address] 02/04/2025 9:30 AM EST Clinical Support [facility] [address] [place] [address] 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 RN documented as of this encounter Visit Diagnoses Not on filedocumented in this encounter Additional Health Concerns Assessment Noted Time PHQ-9 Depression Total Score: 20 023 9:49 AM EDT documented as of this encounter Care Teams Vocational Rehabilitation Technician Relationship Specialty Start Date End Date Jessi Dueñas MD 230 [place] [address] PCP - General Family Medicine 11/24/20 Mikayla Bhagat Building SpecialistWeb Application Dev Specialist 05/09/23 documented as of this encounter
--- OUTSIDE RECORDS SUMMARY | 2024-11-27 13:58 | XMS_ITS | Encounter Summary ---
Author Organization [employer] Address [address] [facility] [address] 7t [place] [address] Care Team Providers Care Garnishment Specialist Name Role Phone Jessi Dueñas MD Primary Care Provider [phone] Encounter Details Date Type Department Care Team ([facility] st Contact Info) Description 05/18/2023 Telephone [facility] 230 [place] [address] Jessi Dueñas MD 230 [place] [address] Social History Tobacco Use Types Packs/Day Years [...] Lopez RN - 05/18/2023 8:48 AM EST PAPER CONE MACHINE TENDER referral made to [facility], referral form faxed with confirmation of receipt. documented in this encounter Plan of Treatment Upcoming Encounters Date Type Department Care Team (Late st Contact Info) Description 01/13/2025 1:30 PM EDT Office Visit [address] [place] [address] [address] Jessi Dueñas MD [address] [place] [address] 02/04/2025 9:30 AM EST Clinical Support [address] [place] [address] [address] 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, HERNANDEZ documented as of this encounter Visit Diagnoses Not on filedocumented in this encounter Additional Health Concerns Assessment Noted Time PHQ-9 Depression Total Score: 20 023 9:49 AM EDT documented as of this encounter Care Teams Garnishment Specialist Relationship Specialty Start Date End Date Jessi Dueñas MD [address] [place] [address] PCP - General Family Medicine 11/24/20 Mikayla Bhagat Labor ExpediterCasino Dealer 05/09/23 documented as of this encounter
--- OUTSIDE RECORDS SUMMARY | 2024-11-27 13:58 | XMS_ITS | Encounter Summary ---
Author Organization [employer] Address 75 [facility] 7t [place] [address] Care Team Providers Care Circulation Crew Leader Name Role Phone Jessi Dueñas MD Primary Care Provider [phone] Reason for Referral * Consultation (Routine) - Closed Specialty Diagnoses / Procedures Referred By Contac t Referred To Contact Physical Therapy Diagnoses Acute bilateral low back pain without sciatica Chronic pain of both knees Bilateral hand pain Jessi Dueñas MD [address] [place] [address] Phone: tel: fax: [facility] [address] Phone: tel: fax: Referral ID Status Reason Start Date Expiration Date V isits Requested Visits Authorized [id number] Closed Specialty Services Required 07/29/2024 07/29/2025 20 20 Encounter Details Date Type Department Care Team (Late st Contact Info) Description 07/26/2024 Orders Only [facility] MEDICINE [address] [place] [address] Jessi Dueñas MD [address] [place] [address] Acute bilateral low back pain without sciatica (Primary Dx); Chronic pain of both knees; Bilateral hand [...] Description 01/13/2025 1:30 PM EDT Office Visit [address] [address] Jessi Dueñas MD [address] [place] [address] 02/04/2025 9:30 AM EST Clinical Support [address] [address] 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, RN Scheduled Referrals Name Type Priority Associated Diagnoses Orde r Schedule Referral to Physical Therapy Outpatient Referral Routine Acute bilateral low back pain without sciatica Chronic pain of both knees Bilateral hand pain Expected: 07/26/2024 (Approximate), Expires: 07/26/2025 documented as of this encounter Visit Diagnoses Diagnosis Acute bilateral low back pain without sciatica- Primary Chronic pain of both knees Bilateral hand pain documented in this encounter Additional Health Concerns Assessment Noted Time PHQ-9 Depression Total Score: 8 09/19/19 24 11:07 AM EDT documented as of this encounter Care Teams Circulation Crew Leader Relationship Specialty Start Date End Date Jessi Dueñas MD [address] [place] [address] PCP - General Family Medicine 11/24/20 Mikayal Bhagat Rope Machine SetterPoultry Hatchery Supervisor 05/09/23 documented as of this encounter
--- OUTSIDE RECORDS SUMMARY | 2024-11-27 13:58 | XMS_ITS | Encounter Summary ---
Author Organization [employer] Address 75 [facility] 7t [place] [address] Care Team Providers Care Video Production Engineer Name Role Phone Jessi Dueñas MD Primary Care Provider [phone] Encounter Details Date Type Department Care Team ([facility] Contact Info) Description 03/29/2022 Orders Only [facility] MEDICINE [address] [place] [address] Jessi Dueñas MD [address] [place] [address] Choking episode occurring at night (Primary Dx) [...] Upcoming Encounters Date Type Department Care Team ([facility] Contact Info) Description 01/13/2025 1:30 PM EDT Office Visit [facility] MEDICINE [address] [place] [address] Jessi Dueñas MD [address] [place] [address] 02/04/2025 9:30 AM EST Clinical Support [facility] MEDICINE [address] [place] [address] 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 RN documented as of this encounter Visit Diagnoses Diagnosis Choking episode occurring at night- Primary documented in this encounter Care Teams Video Production Engineer Relationship Specialty Start Date End Date Jessi Dueñas MD [address] [place] [address] PCP - General Family Medicine 11/24/20 Mikayla Bhagat Journeyman WelderBallistics Teacher 05/09/23 documented as of this encounter
--- OUTSIDE RECORDS SUMMARY | 2024-11-27 13:58 | XMS_ITS | Encounter Summary ---
Author Organization [employer] Address 75 [facility] 7t [place] [address] Care Team Providers Care Hydraulic Punch Press Operator Name Role Phone Jessi Dueñas MD Primary Care Provider [phone] Reason for Visit * Reason Onset Date Comments Results 05/23/2023 Encounter Details Date Type Department Care Team ([facility] st Contact Info) Description 05/23/2023 Telephone [facility] MEDICINE [address] [place] [address] Jessi Dueñas MD [address] [place] [address] Results Social History Tobacco Use Types Packs/Day [...] T/C to pt. For below message through Captora id - [id number], pt. Informed regarding normal x-ray result. pt. [...] case of any new or worsening symptoms. [facility] hours are reviewed. Pt. Verbally agreed and understood. * Telephone Encounter - Paco Sylvester - 05/24/2023 3:59 PM EST Tc from pt returning call. Please contact at [phone] * Telephone Encounter - Yumiko Whitaker RN - 05/24/2023 12:47 PM EST Return T/C to pt. For bellow message Normal x-ray result. No answer. LVM to call back on [phone]. * Telephone Encounter - Bran Parker - 05/23/2023 4:41 PM EST TC from pt requesting call back regarding Results. Type of results: X-Ray Date when done: 05/16/23 Facility: [facility] documented in this encounter Plan of Treatment Upcoming Encounters Date Type Department Care Team (Late st Contact Info) Description 01/13/2025 1:30 PM EDT Office Visit [address] [address] Jessi Dueñas MD [address] [place] [address] 02/04/2025 9:30 AM EST Clinical Support [facility] MEDICINE [address] [place] [address] 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 RN documented as of this encounter Visit Diagnoses Not on filedocumented in this encounter Additional Health Concerns Assessment Noted Time PHQ-9 Depression Total Score: 20 023 9:49 AM EDT documented as of this encounter Care Teams Hydraulic Punch Press Operator Relationship Specialty Start Date End Date Jessi Dueñas MD [address] [place] [address] PCP - General Family Medicine 11/24/20 Mikayla Bhagat Parachute Accessories AttacherFilm Producer 05/09/23 documented as of this encounter
--- OUTSIDE RECORDS SUMMARY | 2024-11-27 13:58 | XMS_ITS | Encounter Summary ---
Author Organization [employer] Address 75 [facility] 7t [place] [address] Care Team Providers Care Vice President Of Business Development Name Role Phone Jessi Dueñas MD Primary Care Provider [phone] Reason for Visit * Reason Onset Date Comments Referral 12/23/2022 Encounter Details Date Type Department Care Team ([facility] st Contact Info) Description 12/23/2022 Telephone [facility] MEDICINE [address] [place] [address] Jessi Dueñas MD 230 [place] [address] Referral Social History Tobacco Use Types Packs/Day [...] have interpreters. Any questions, contact pt at [phone] (Albanian) documented in this encounter Plan of Treatment Upcoming Encounters Date Type Department Care Team (Late st Contact Info) Description 01/13/2025 1:30 PM EDT Office Visit [address] [address] Jessi Dueñas MD [address] [place] [address] 02/04/2025 9:30 AM EST Clinical Support [address] [address] 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 RN documented as of this encounter Visit Diagnoses Not on filedocumented in this encounter Additional Health Concerns Assessment Noted Time PHQ-9 Depression Total Score: 19 023 2:59 PM EST documented as of this encounter Care Teams Vice President Of Business Development Relationship Specialty Start Date End Date Jessi Dueñas MD [address] [place] [address] PCP - General Family Medicine 11/24/20 Mikayla Bhagat Security StrategistArborist Climber 05/09/23 documented as of this encounter
--- OUTSIDE RECORDS SUMMARY | 2024-11-27 13:58 | XMS_ITS | Encounter Summary ---
Author Organization [employer] Address 75 [facility] 7 [place] [address] Care Team Providers Care Concrete Mixing Plant Laborer Name Role Phone Jessi Dueñas MD Primary Care Provider [phone] Reason for Visit * Reason Comments Med Refill Encounter Details Date Type Department Care Team ([facility] st Contact Info) Description 10/25/2023 Refill [facility] MEDICINE [address] [place] [address] Anita Arriaga MD [address] [place] [address] Social History Tobacco Use Types Packs/Day Years [...] 1:30 PM EDT Office Visit [facility]INE [address] [place] [address] Jessi Dueñas MD [address] [place] [address] 02/04/2025 9:30 AM EST Clinical Support [address] [address] 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, HERNANDEZ documented as of this encounter Visit Diagnoses Not on filedocumented in this encounter Additional Health Concerns Assessment Noted Time PHQ-9 Depression Total Score: 8 09/19/19 24 11:07 AM EDT documented as of this encounter Care Teams Concrete Mixing Plant Laborer Relationship Specialty Start Date End Date Jessi Dueñas MD [address] [place] [address] PCP - General Family Medicine 11/24/20 Mikayla Bhagat Buildings And Grounds CoordinatorOtr Tanker Truck Driver 05/09/23 documented as of this encounter
--- OUTSIDE RECORDS SUMMARY | 2024-11-27 13:58 | XMS_ITS | Encounter Summary ---
Author Organization [employer] Address [address] [facility] [address] 7t [place] [address] Care Team Providers Care Fire Department Battalion Chief Name Role Phone Jessi Dueñas MD Primary Care Provider [phone] Encounter Details Date Type Department Care Team (Late st Contact Info) Description 06/14/2024 Orders Only [facility] MEDICINE [address] [place] [address] Jessi Dueñas MD [address] [place] [address] Restless leg syndrome Social History Tobacco Use [...] 01/13/2025 1:30 PM EDT Office Visit [facility] MEDICINE [address] [place] [address] Jessi Dueñas MD [address] [place] [address] 02/04/2025 9:30 AM EST Clinical Support [address] [address] 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 RN documented as of this encounter Visit Diagnoses Diagnosis Restless leg syndrome Restless legs syndrome (RLS) documented in this encounter Additional Health Concerns Assessment Noted Time PHQ-9 Depression Total Score: 8 09/19/19 24 11:07 AM EDT documented as of this encounter Care Teams Fire Department Battalion Chief Relationship Specialty Start Date End Date Jessi Dueñas MD [address] [place] [address] PCP - General Family Medicine 11/24/20 Mikayla Bhagat Central Lab TechnicianInsole Channeler 05/09/23 documented as of this encounter
--- OUTSIDE RECORDS SUMMARY | 2024-11-27 13:58 | XMS_ITS | Encounter Summary ---
Author Organization [employer] Address 75 [facility] 7t [place] [address] Care Team Providers Care Radio Station Engineer Name Role Phone Jessi Dueñas MD Primary Care Provider [phone] Encounter Details Date Type Department Care Team (Late st Contact Info) Description 10/12/2022 Orders Only [facility] MEDICINE [address] [place] [address] Jessi Dueñas MD [address] [place] [address] Acute bilateral low back pain, unspecified whether [...] Department Care Team (Late Contact Info) Description 01/13/2025 1:30 PM EDT Office Visit [facility] MEDICINE [address] [place] [address] Jessi Dueñas MD [address] [place] [address] 02/04/2025 9:30 AM EST Clinical Support [facility] MEDICINE [address] [place] [address] 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, RN documented as of this encounter Visit Diagnoses Diagnosis Acute bilateral low back pain, unspecified whether sciatica present- Primary Hematoma of left knee region Sprain of left medial ankle joint, subsequent encounter documented in this encounter Additional Health Concerns Assessment Noted Time PHQ-9 Depression Total Score: 19 023 2:59 PM EST documented as of this encounter Care Teams Radio Station Engineer Relationship Specialty Start Date End Date Jessi Dueñas MD [address] [place] [address] PCP - General Family Medicine 11/24/20 Mikayla Bhagat Systems ProgrammerFactory Laborer 05/09/23 documented as of this encounter
--- OUTSIDE RECORDS SUMMARY | 2024-11-27 13:58 | XMS_ITS | Encounter Summary ---
Author Organization [employer] Address 75 [facility] 7t [place] [address] Care Team Providers Care Pumper Brewery Name Role Phone Jessi Dueñas MD Primary Care Provider [phone] Reason for Visit * Reason Onset Date Comments Other 01/05/2023 Encounter Details Date Type Department Care Team ([facility] st Contact Info) Description 01/05/2023 Telephone [facility] MEDICINE 230 [place] [address] Jessi Dueñas MD 230 [place] [address] Other Social History Tobacco Use Types Packs/Day [...] 12:53 PM EDT TC placed to pt [phone] to inform pt PCP sent Cymbalta to [...] rheumatology referral d/t [facility] tx[facility] not speaking maltese. Pt was informed PCP has placed new rheumatology referral for [facility] yesterday. Pt verbalized understanding. Pt to f/u PRN. * Telephone Encounter - Divya Frank - 01/05/2023 11:51 AM EDT Tc from pt states PCP advised her she will send a script for pain on 01/04 appointment but pt never received medication. Please contact pt at [phone] (Puerto Rican) documented in this encounter Plan of Treatment Upcoming Encounters Date Type Department Care Team (Late st Contact Info) Description 01/13/2025 1:30 PM EDT Office Visit [facility] MEDICINE [address] [place] [address] Jessi Dueñas MD [address] [place] [address] 02/04/2025 9:30 AM EST Clinical Support [facility] MEDICINE [address] [place] [address] 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 RN documented as of this encounter Visit Diagnoses Not on filedocumented in this encounter Additional Health Concerns Assessment Noted Time PHQ-9 Depression Total Score: 20 023 9:49 AM EDT documented as of this encounter Care Teams [employer] Brewery Relationship Specialty Start Date End Date Jessi Dueñas MD [address] [place], [place] [address] [place] [address] PCP - General Family Medicine 11/24/20 Mikayla Bhagat Environmental Maintenance WorkerSpouting Installer 05/09/23 documented as of this encounter
--- OUTSIDE RECORDS SUMMARY | 2024-11-27 13:58 | XMS_ITS | Encounter Summary ---
Author Organization [employer] Address 75 [facility] 7t [place] [address] Care Team Providers Care Cardboard Cutter Name Role Phone Jessi Dueñas MD Primary Care Provider [phone] Reason for Visit * Reason Onset Date Comments Med Refill Tramadol refill denied 10/25/2023 Encounter Details Date Type Department Care Team (Late st Contact Info) Description 10/25/[address] [facility] MEDICINE [address] [place] [address] Jessi Dueñas MD 230 [place], [place] [phone] Fibromyalgia Social History Tobacco Use Types Packs/Day [...] call her, when I get back from [place] and we can review this. Thank you! TC via P/I#[id number], unable to connect to the number, unable to leave message. Will forward message to PCP's M.A. to schedule a telephone appointment for patient as PCP requested. documented in this encounter Plan of Treatment Upcoming Encounters Date Type Department Care Team (Late st Contact Info) Description 01/13/2025 1:30 PM EDT Office Visit [facility] MEDICINE [address] [place], [place] [phone] Jessi Dueñas MD [address] [place] [address] 02/04/2025 9:30 AM EST Clinical Support [facility] MEDICINE [address] [place] [address] 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, HERNANDEZ documented as of this encounter Visit Diagnoses Diagnosis Fibromyalgia Unspecified myalgia and myositis documented in this encounter Additional Health Concerns Assessment Noted Time PHQ-9 Depression Total Score: 8 09/19/19 24 11:07 AM EDT documented as of this encounter Care Teams Cardboard Cutter Relationship Specialty Start Date End Date Jessi Dueñas MD [address] [place] [address] PCP - General Family Medicine 11/24/20 Mikayla Bhagat Portable Power Tool RepairerElectrician Substation 05/09/23 documented as of this encounter
--- OUTSIDE RECORDS SUMMARY | 2024-11-27 13:58 | XMS_ITS | Clinical Summary ---
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 clonazePAM (KlonoPIN) 1 MG tablet TAKE 1 TABLET BY MOUTH TWICE DAILY IN THE MORNING AND IN THE EVENING (MAY TAKE ADDITIONAL TABLET NEEDED) 022 Active Levonorgestrel (Mirena, 52 MG,) 20 MCG/DAY [...] FOR SWELLING 90 tablet 2 023 Active cholecalciferol VITAMIN D (Vitamin D-3) 50 MCG (1999 UT) tablet TAKE 1 TABLET BY MOUTH EVERY MORNING 90 tablet 3 Active montelukast (Singulair) 10 MG tablet TAKE 1 TABLET BY MOUTH EVERY EVENING FOR ASTHMA 90 tablet 3 024 Active Lactobacillus 0.05-0.05 MG tabletIndications :Weight loss of more than 10% body weight Take 1 tablet by mouth Once per day. 90 tablet 3 025 Active fluticasone (Flonase) 50 MCG/ACT nasal sprayIndications: Allergic rhinitis, unspecified seasonality, unspecified trigger INHALE 2 SPRAYS IN EACH NOSTRIL ONCE DAILY DIRECTED 48 g 3 Active FLUoxetine (PROzac) 40 MG capsule Take 1 capsule (40 mg) by mouth Once per day. 30 capsule 11 025 2025 Active 27-1 MG tablet Take 1 tablet by mouth in the morning. 90 tablet 3 025 Active rOPINIRole (Requip) 4 MG tabletIndications :Restless leg syndrome Take 1 tablet (4 mg) by mouth at bedtime. 90 tablet 2 025 Active hydrocortisone 2.5 % cream APPLY TOPICALLY TO THE AFFECTED AREA(S) RECTALLY EVERY DAY 60 g 1 Active Fiber-Lax 625 MG tablet Take 1 tablet by mouth 2 times daily. 025 Active senna (Senokot) 8.6 MG tablet TAKE 2 TABLETS BY MOUTH EVERY DAY AT BEDTIME NEEDED FOR CONSTIPATION Active sucralfate (Carafate) 1 GM/10ML suspension GIVE 10 ML BY MOUTH AT BEDTIME Active zolpidem (Ambien) 5 MG tablet Take 5 mg by mouth if needed at bedtime for sleep. Active cyproheptadine (Periactin) 4 MG tablet TAKE 1 TABLET BY MOUTH TWICE DAILY FOR APPETITE 180 tablet 3 025 Active imipramine (Tofranil) 50 MG tablet TAKE 1 TABLET BY MOUTH AT BEDTIME 30 tablet 11 Active acetaminophen (Tylenol 8 Hour) 650 MG ER tablet Take 1 tablet (650 mg) by mouth every 8 (eight) hours if needed for mild pain. Do not crush, chew, or split. 30 tablet Active esomeprazole (NexIUM) [address] capsule Take 40 mg by mouth in the morning. Active ondansetron ODT (Zofran-ODT) 8 MG disintegrating tablet DISSOLVE 1 TABLET BY MOUTH EVERY TWELVE HOURS Active naloxone (Narcan) 4 mg/0.1 mL nasal sprayIndications: [facility] current use of 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 Administer 1 spray (4 mg) into affected nostril(s) if needed for opioid reversal. May repeat every 2-3 minutes if needed, alternating nostrils, until medical assistance becomes available. 2 each 3 025 2025 Active Asmanex HFA 200 MCG/ACT aerosol INHALE 1 PUFF BY MOUTH TWICE DAILY, RINSE MOUTH AFTER USING. 13 g 1 Active traMADol (Ultram) 50 MG tabletIndications :Polyarthralgia,F ibromyalgia Take 1 tablet (50 mg) by mouth every 12 (twelve) hours if needed for severe pain for up to 28 days. Do not start before November 28, 2024. 56 tablet 025 2024 Active Asmanex HFA 200 MCG/ACT aerosol INHALE 1 PUFF BY MOUTH TWICE DAILY RINSE MOUTH AFTER USING. 13 g 1 025 2024 Discontinued traMADol (Ultram) 50 MG tabletIndications :Polyarthralgia,F ibromyalgia Take 1 tablet (50 mg) by mouth every 12 (twelve) hours if needed for severe pain for up to 28 days. 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 Continue Prozac to 60mg Continue Tramadol 50mg BID Could not tolerate gabapentin or lyrica, per pt for nausea, dizziness, feeling of needing to move (which are all things that were present previously) Consider acupuncture, yoga, taichi, group visits for pain Reviewed getting small amounts of exercise daily and healthy diet Assessment & Plan (05/20/2024 4:38 PM EST): [...] & Plan (12/08/2023 9:32 AM EDT): From waist cutter last apt 09/2023 Labs showed low titer [...] & Plan (10/06/2023 12:39 PM EDT): From waist cutter last apt 09/2023 Labs showed low titer [...] & Plan (09/19/2023 6:11 PM EDT): From waist cutter last apt 09/2023 Labs showed low titer [...] has already asked an agency to do ALGORITHM DESIGN 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 evaluation To go to medical records and sign release so that we can send the order Weight loss of more than 10% body weight 023 Assessment & Plan (05/19/2023 10:33 AM EST): Ordered Boost supplement, Hank confirmed with [place] 05/18/23 that they submitted the prescription to and are awaiting word on insurance coverage Vitamin levels are normal, she does not need any specific supplementation but can continue daily multivitamin Assessment & Plan (02/20/2023 12:57 PM EST): Start Boost supplement Check vitamin levels to see if patient needs any specific supplementation Whole body pain 01/04/2023 Assessment & Plan (07/30/2024 10:18 AM EDT): Trying to manage with medications and lifestyle changes She could not do physical labor with her current status Assessment & Plan (08/25/2023 9:34 AM EDT): Do not recommend use of street purchased drugs for pain Assessment & Plan (05/19/2023 10:31 AM EST): Plan to see [facility] rheumatology in June 2023, JUANITO + , [...] 12:59 PM EST): Will send referral to [facility] rheumatology, JUANITO + , whole body pain, fatigue, all worse after two episodes of C diff Still likely fibromyalgia Recommend avoidance of marijuana and cocaine, drugs purchased on the street Assessment & Plan (01/04/2023 7:56 PM EDT): Will send referral to [facility] rheumatology, JUANITO + , whole body pain, fatigue, all worse after two episodes of C diff Acute left ankle pain 10/27/2022 Assessment & Plan (10/27/2022 10:42 AM EDT): Likely ankle sprain, no signs of fracture, no need for XRAY PT referral Short course diclofenac ( patient reports acetaminophen/ibuprofen not helping) Neck pain 10/27/2022 Post concussion syndrome 08/25/2022 [...] overcome her injury Sent referral to PT Fecal incontinence 03/24/2022 Assessment & Plan (08/25/2023 [...] & Plan (02/20/2023 12:56 PM EST): Call [facility] to get appointment at their Rheum clinic [...] out to prescriber about other medication options Migraine 04/03/1957 Resolved Problems Problem Noted Date Diagnosed Date Resolved Date Acute bilateral low back jian n without sciatica 10/27/2022 10/31/2024 Assessment & Plan (10/27/2022 10:44 AM EDT): I also discontinue today flexeril and switch to baclofen (short curse) patient is aware of side effects, somnolence, 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 Hematoma of left knee region 08/25/2022 10/31/2024 Assessment & Plan (08/25/2022 6:49 AM EDT): About 3 x 4 cm in diamater RICE Wrapped with Chris wrap in clinic Can use diclofenac here and on lower extremity bruising Sprain of left medial ankle joint 08/25/2022 10/31/2024 Assessment & Plan (08/25/2022 6:50 AM EDT): RICE therapy Able to bear weight Swelling is minimal Wrapped with Chris wrap Acute ethmoidal sinusitis 03/10/2022 Sinusitis 03/10/2022 05/20/2024 Impaired fasting glucose 04/03/1957 Encounters Date Type Department Care Team Description 11/27/2024 Refill [facility] [address] [place] [address] Jessi Dueñas MD Polyarthralgia; Fibromyalgia 11/14/2024 Refill [facility] [address] [place] [address] Anita Kearns MD 11/07/2024 1:00 PM EDT Clinical Support [address] [address] 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, HERNANDEZ [facility] current use of 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 (Primary Dx) 11/07/[address] [address] 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, 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 (Primary Dx) 11/07/2024 Travel 11/04/[address] [address] Jessi Dueñas MD Durable Medical Equipment 11/04/[address] [address] Jessi Dueñas MD Medication Question 10/30/2024 3:00 PM EDT Office Visit [address] [address] Jessi Dueñas MD Polyarthralgia (Primary Dx); Dietary counseling; Exercise counseling; Underweight; Whole body pain; Fibromyalgia; [facility] current use of 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; Severe depression (CMS/HCC); Chronic pain of both knees; Chronic bilateral low back pain, unspecified whether sciatica present; Pain in both hands 10/30/2024 Travel 10/29/[address] [address] Jessi Dueñas MD Chart Prep 10/25/[address] [place] [address] Jessi Dueñas MD PT referral 10/21/2024 Patient Outreach [address] [address] Jessi Dueñas MD Pre-visit Planning ([facility] screening completed on 05/27/2024) 10/16/[address] [address] Jessi Dueñas MD Nurse Triage 10/15/2024 Orders Only [facility] External Provider, [facility] 10/02/2024 Orders Only GENERIC EXTERNAL DATA DEPARTMENT Provider, Generic External Data 09/30/2024 Orders Only [facility] External Provider, [facility] 09/11/[address] [address] Jessi Dueñas MD Durable Medical Equipment 09/10/2024 Refill [facility] [address] [place] [address] Jessi Dueñas MD Fibromyalgia 09/10/2024 Refill [facility] [address] [place] [address] Jessi Dueñas MD Fibromyalgia (Primary Dx) 09/10/2024 Refill [facility] [address] [place] [address] Jessi Dueñas MD Fibromyalgia 09/02/2024 8:00 AM EDT Office Visit [facility] ADULT DENTAL [address] [place] [address] Fuentes Hurley DDS Dental caries (Primary Dx) 09/01/2024 Refill [facility] [address] [place] [address] Jessi Dueñas MD from Last 3 Months Immunizations Immunization Administration Dates Next Due HPV 9-Valent 08/12/2024,10/26/2023,09/19/2023 Influenza Injectable Quadriv alant Preservative Free IIV4 [...] Q2 Not on file 05/27/2024 Comments Unknown Intention Date Recorded No desire to become (finding) 0 07/30/2024 Sex and Gender Information Value Date Recorded Sex Assigned at Female 01/31/2022 10:21 AM EDT Legal Sex Female 10:21 AM EDT Gender Identity Female 01/31/2022 10:21 AM EDT Sexual Orientation Straight 01/31/2022 10 :21 AM EDT Last Filed Vital Signs Vital Sign Reading Time Taken Comments Blood Pressure 118/70 10/30/2024 2:34 PM EDT Pulse 79 10/30/2024 2:34 PM EDT Temperature 36.3 C (97.4 F) 07/30/2024 8:54 AM EDT Respiratory Rate 16 10/30/2024 2:34 PM EDT Oxygen Saturation 100% 07/30/2024 8:54 AM EDT Inhaled Oxygen Concentration - - Weight 52.2 kg (115 lb) 10/30/2024 2:34 PM EDT Height 170.2 cm (5' 7 ) 10/30/2024 2:34 PM EDT Body Mass Index 18.01 10/30/2024 2:34 PM EDT Plan of Treatment Upcoming Encounters Date Type Department Care Team (Late st Contact Info) Description 01/13/2025 1:30 PM EDT Office Visit [facility] [address] [place] [address] Jessi Dueñas MD [address] [place] [address] 02/04/2025 9:30 AM EST Clinical Support [facility] [address] [place] [address] 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, RN Health Maintenance Due Date Last Done Comments Dental Oral Exam 1980 Dental Prophylaxis 1980 Dental X-Ray: Full Mouth 1980 Hepatitis B Vaccines (1 of 3 - 19+ 3-dose series) 2001 Pneumococcal Vaccine: Pediatrics (0 to 5 Years) and At-Risk Patients (6 to 49) Years (1 of 2 - PCV) 2001 COVID-19 Vaccine ( season) 2023 09/19/2023, 07/06/2021, 08/10/2020, Additional history exists Influenza Vaccine (#1) 2024 , 07/06/2021, 01/24/2019, Additional history exists Depression Monitoring 01/29/2025 07/30/2024, 025 SDOH Screening 05/27/2025 05/27/2024 Dental X-Ray: Bitewings 07/19/2025 07/18/2024 Alcohol/Substance Use Screening 07/30/2025 07/30/2024 Family Planning (PISQ) 07/30/2025 07/30/2024 Disability Screening 10/30/2025 10/30/2024 Tobacco Screening 10/30/2025 10/30/2024 Cervical Cancer Screening 02/22/2026 HPV/Cotest 02/22/2026 02/22/2021, 01/02, 12/14/2015 Pap Smear 02/22/2026 02/22/2021 Mammogram 09/30/2026 09/30/2024, 09/28/2023 DTaP/Tdap/Td Vaccines (3 - Td or Tdap) 08/14/2032 08/14/2022, 04/22/2011 Zoster Vaccines (1 of 2) 2032 RSV Patients and Patients Aged 60 years or older (1 - 1-dose 75+ series) 2057 HIV Screening Completed 05/17/2024, 09/01, 05/18/2023, Additional history exists Hepatitis C Screening Completed 05/17/2024 , 09/19/2023, 06/29/2023, Additional history exists HPV Vaccines Completed 08/12/2024, 10/02, 09/19/2023 HIB Vaccines Aged Out No longer eligi ble based on patient's age to complete this topic Hepatitis A Vaccines Aged Out No long er eligible based on patient's age to complete this topic IPV Vaccines Aged Out No longer eligi ble based on patient's age to complete this topic Meningococcal B Vaccine Aged Out No l onger eligible based on patient's age to complete [...] Name Priority Date/Time Associated Diagnosis Comments POCT JIMMY-14 URINE DRUG SCREEN Routine 11/07/2024 1:02 PM EDT 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 US PELVIS TRANSVAGINAL Routine 1:03 PM EDT CYTOPATH-CELL ENHANCED Routine 4:48 PM EDT BI MAMMOGRAM SCREENING TOMOSYNTHESIS BILATERAL Routine 09/30/2024 10:50 AM EDT FL UPPER GI W BARIUM SWALLOW Routine 09/09/2024 8:30 AM EDT CASE PRESENTATION, DETAILED AND EXTENSIVE TREATMENT PLANNING Routine 09/02/2024 8:00 AM EDT 2 EXTRACTION, ERUPTED TOOTH OR EXPOSED ROOT (ELEVATION/FORCEPS REMOVAL) Routine 09/02/2024 8:00 AM EDT BITEWING - SINGLE RADIOGRAPHIC IMAGE Routine 07/18/2024 1:00 PM EDT HEPATITIS PANEL, GENERAL Routine 05/17/2024 9:40 AM EST HIV 1/2 ANTIGEN/ANTIBODY, FOURTH GENERATION W/RFL Routine 05/17/2024 9:40 AM EST HPV MRNA E6/E7 REFLEX TO HPV 16, 18/45 Routine 02/22/2021 12:00 AM EST THINPREP IMAGING SYSTEM PAP Routine 02/22/2021 12:00 AM EST from Last 3 Months or Most Recently Relevant to Health Maintenance Results * POCT JIMMY-14 Urine Drug Screen (11/07/2024 1:02 PM EDT) THC Positive Negative Cocaine Screen, Urine Negative Negative Opiate Screen, Urine Negative Negative Methamphetamine Screen Urine Negative Negative Amphetamine Screen, Urine Negative Negative Benzodiazepines Screen, Urine Positive Negative Barbiturate Screen, Urine Negative Negative Methadone Screen, Urine Negative Negative Buprenophine Screen, Urine Negative Negative TCA, Urine Positive Negative MDMA Urine Negative Negative ng/mL Oxycodone Screen, Urine Negative Negative Phencyclidine (PCP), Urine Negative Negative Propoxyphene, Urine Negative Negative Fentanyl, Urine Negative Negative Urine Urine specimen obtained by clean catch procedure / Unknown 11/07/2024 1:02 PM EDT Narrative Bceky Bonilla RN - 11/07/2024 1:02 PM EDT UTOX cup Lot#[id number] Exp. 01/07/26 Internal Pass Control us Jessi Dueñas MD POINT OF CARE TEST ENTER/EDIT ORDERABLES Final Result * US Pelvis Transvaginal (10/15/2024 1:03 PM EDT) Anatomical Region Laterality Modality Pelvis Ultrasound 10/15/2024 1:03 PM EDT Narrative 10/15/2024 1:51 PM EDT [address] [address] Ultrasound Report Signed Patient: Kera Armstrong MR#: [id number] : 1980 Acct:[id number] Age/Sex: 43 / F ADM Date: 10/15/24 Loc: HO.US Attending Dr: Harjit Parada MD Ordering Physician: Harjit Parada MD Date of Service: 10/15/24 Procedure(s): US pelvic and transvaginal Accession Number(s): [id number] cc: Jessi Dueñas; Harjit Parada MD EXAMINATION: US PELVIS TRANSABDOMINAL AND TRANSVAGINAL HISTORY: N83.299 - Other ovarian cyst, unspecified side COMPARISON: Comparison is made with the prior examination dated 08/13/2024. TECHNIQUE: Transabdominal and endovaginal real-time 2D moya-scale ultrasound was performed. FINDINGS: Uterus: The uterus is normal in size, measuring 8.7 x 3.9 x 4.2 cm. Myometrium has a normal echotexture. Again seen is a left-sided fibroid measuring 7 x 6 x 7 mm without change. Endometrium: The endometrial stripe measures 3 mm in thickness. An IUD is seen in appropriate position in the endometrial canal. Right ovary: The right ovary measures 3.1 x 1.4 x 2.3 cm. The right ovary is normal in size and echotexture. Left ovary: The left ovary measures 4.1 x 2.4 x 3.0 cm. There is a 3.6 x 2.4 x 2.6 cm left ovarian simple cyst which is larger than on the prior study (previously 2.1 x 2.7 x 1.3 cm). Pelvic fluid: none. US/US pelvic and transvaginal IMPRESSION: 1. IUD in appropriate position in the endometrial cavity. 2. 3.6 x 2.4 x 2.6 cm left ovarian simple cyst is larger than on the prior study. Continued follow-up is recommended. Electronically signed by: Everett Rich MD 10/15/2024 01:48 PM EDT Dictated By: Everett Rich MD Signed By: <Electronically signed by Everett Rich MD in OV> 10/15/24 1348 DD/ 1303 TD/TT: 10/15/24 1322 Doctor Of Osteopathy: Procedure Note Donotuseinterpreter, Image - 10/15/[address] [address] Ultrasound Report Signed Patient: Teresa Armstrong#: [id number] : 1980Acct:[id number] Age/Sex: 43 / FADM Date: 10/15/24 Loc: HO.US Attending Dr: Harjit Parada MD Ordering Physician: Harjit Parada MD Date of Service: 10/15/24 Procedure(s): US pelvic and transvaginal Accession Number(s): [id number] cc: Jessi Dueñas; Harjit Parada MD EXAMINATION: US PELVIS TRANSABDOMINAL AND TRANSVAGINAL HISTORY: N83.299 - Other ovarian cyst, unspecified side COMPARISON: Comparison is made with the prior examination dated 08/13/2024. TECHNIQUE: Transabdominal and endovaginal real-time 2D moya-scale ultrasound was performed. FINDINGS: Uterus: The uterus is normal in size, measuring 8.7 x 3.9 x 4.2 cm. Myometrium has a normal echotexture. Again seen is a left-sided fibroid measuring 7 x 6 x 7 mm without change. Endometrium: The endometrial stripe measures 3 mm in thickness. An IUD is seen in appropriate position in the endometrial canal. Right ovary: The right ovary measures 3.1 x 1.4 x 2.3 cm. The right ovary is normal in size and echotexture. Left ovary: The left ovary measures 4.1 x 2.4 x 3.0 cm. There is a 3.6 x 2.4 x 2.6 cm left ovarian simple cyst which is larger than on the prior study (previously 2.1 x 2.7 x 1.3 cm). Pelvic fluid: none. US/US pelvic and transvaginal IMPRESSION: 1. IUD in appropriate position in the endometrial cavity. 2. 3.6 x 2.4 x 2.6 cm left ovarian simple cyst is larger than on the prior study. Continued follow-up is recommended. Electronically signed by: Everett Rich MD 10/15/2024 01:48 PM EDT Dictated By: Everett Rich MD Signed By: <Electronically signed by Everett Rich MD in OV> 10/15/24 1348 DD/ 1303 TD/TT: 10/15/24 1322 Doctor Of Osteopathy: us [facility] External Provider IMG US PROCEDURES Final Result * Cytopath-cell enhanced (10/02/2024 4:48 PM EDT) 10/02/2024 4:48 PM EDT 10/03/2024 8:45 AM EDT [facility] - 10/03/2024 4:11 PM EDT ----- ------- Name: Kera Armstrong Age/Sex: 43/F : 1980 Unit#: [id number] Attend Dr: Marlena Garrison CAP SIZER- Re10/02/24 Status: DEP REF Location: HO.LNP Disch: ----- ------- SPEC : [id number] RECD: 10/03/24 STATUS: LUKE FREEMAN NUM: [id number] BRUCE: 10/02/24 [facility] DR: Marlena Garrison [facility] ENTERED: 10/03/24 SP TYPE: Cytology OTHR DR: Jessi Dueñas ORDERED: Cyto-enhanced Diagnosis Urine: Negative for high-grade urothelial carcinoma. See comment. COMMENT: Cellular specimen consisting of rare single urothelial cells, numerous squamous cells, rare red blood cells, rare crystals and rare degenerated lymphocytes. Clinical History Microscopic hematuria Material Received Urine Gross Description Received is 35 cc of clear yellow fluid from which a ThinPrep slide is prepared. IHC S/NG Disclaimer NOTE: Unless otherwise stated, all tissue is formalin-fixed and paraffin-embedded. Some or all of the immunohistochemical tests reported herein may have been developed and their performance characteristics determined by [facility]. They have not been cleared or approved by the U.S. Food and Drug Administration (FDA). However, the FDA has determined that such clearance or approval is not necessary. This laboratory is certified under the Clinical Laboratory Improvement Amendments of 1988 (CLIA) as qualified to perform high complexity clinical laboratory testing. Copies To: Jessi Dueñas [address] [place] [address] Marlena Garrison [facility] [address] [place] [address] [address] [place] [address] [email or web address] CONTINUED ON NEXT PAGE ----- ------- Name: Lc WhiteesKera Age/Sex: 43/F : 1980 Unit#: [id number] Attend Dr: Marlena Garrison [facility] Re10/02/24 Status: DEP REF Location: [facility] Disch: ----- ------- SPEC : [id number] RECD: 10/03/24 STATUS: LUKE FREEMAN NUM: [id number] BRUCE: 10/02/24 [facility] DR: Marlena Garrison CAP SIZER- ENTERED: 10/03/24 SP TYPE: Cytology OTHR DR: Jessi Dueñas ORDERED: Cyto-enhanced ----- ------- Signed (signature on file) Asaf Tsai MD 10/03/24 1611 ----- ------- END OF REPORT us Generic External Data Provider LAB CYTOLOGY ENRRIQUE ANTHONY Final Result [facility] [address] [place] [phone] * BI Mammogram Screening Tomosynthesis Bilateral (09/30/2024 10:50 AM EDT) Anatomical Region Laterality Modality Breast Bilateral Mammography 09/30/2024 10:5 0 AM EDT Narrative 10/13/2024 1:37 PM EDT [address] [place] [address] Mammography Report Signed Patient: Kera Armstrong MR#: [id number] : 1980 Acct:[id number] Age/Sex: 43 / F ADM Date: 09/30/24 Loc: HO.MAMMO Attending Dr: Harjit Parada MD Ordering Physician: Harjit Parada MD Results: 1Negativ e Date of Service: 09/30/24 Follow Up: 1 Year From Orig inal Mammogram Procedure(s): MM tomosynthesis screening BI Accession Number(s): [id number] cc: Jessi Dueñas; Harjit Parada MD EXAMINATION: MM SCREENING DIGITAL BREAST TOMOSYNTHESIS, BILATERAL CLINICAL INFORMATION: Screening. Asymptomatic. COMPARISON: Mammography: Comparison is made with available priors TECHNIQUE: Digital breast mammography with tomosynthesis is performed in both the craniocaudal and mediolateral oblique views along with computer-aided detection (CAD). FINDINGS: The breasts are extremely dense, which [...] target due date for their next mammogram. Electronically signed by: Christin Boston DO 10/13/2024 01:34 PM EDT Dictated By: Christin Boston DO Signed By: <Electronically signed by Christin Boston DO in OV> 10/13/24 1334 DD/ 1050 TD/TT: 09/30/24 1154 Doctor Of Osteopathy: Procedure Note Donotuseinterpreter, Image - 10/13/[address] [place] [address] Mammography Report Signed Patient: Kera ArmstrongMR#: [id number] : 1980Acct:[id number] Age/Sex: 43 / FADM Date: 09/30/24 Loc: HO.MAMMO Attending Dr: Harjit Parada MD Ordering Physician: Harjit Parada MDResults: 1Negativ e Date of Service: 09/30/24Follow Up: 1 Year From Orig inal Mammogram Procedure(s): MM tomosynthesis screening BI Accession Number(s): [id number] cc: Jessi Dueñas; Harjit Parada MD EXAMINATION: MM SCREENING DIGITAL BREAST TOMOSYNTHESIS, BILATERAL CLINICAL INFORMATION: Screening. Asymptomatic. COMPARISON: Mammography: Comparison is made with available priors TECHNIQUE: Digital breast mammography with tomosynthesis is performed in both the craniocaudal and mediolateral oblique views along with computer-aided detection (CAD). FINDINGS: The breasts are extremely dense, which [...] target due date for their next mammogram. Electronically signed by: Christin Boston DO 10/13/2024 01:34 PM EDT Dictated By: Christin Boston DO Signed By: <Electronically signed by Christin Boston DO in OV> 10/13/24 1334 DD/ 1050 TD/TT: 09/30/24 1154 Doctor Of Osteopathy: [facility] External Provider IMG BI PROCEDURES Final Result * FL Upper GI w/Barium Swallow (09/09/2024 8:30 AM EDT) Anatomical Region Laterality Modality Body Radiographic Eboni ging 09/09/2024 8:30 AM EDT Narrative 09/09/2024 9:08 AM EDT [address] [address] Fluoroscopy Report Signed Patient: Kera Armstrong MR#: [id number] : 1980 Acct:[id number] Age/Sex: 43 / F ADM Date: 09/09/24 Loc: [facility] Attending Dr: Ashley Duncan CAP SIZER-BC Ordering Physician: Ashley Duncan Date of Service: 09/09/24 Procedure(s): FL upper GI w Ba Swallow Accession Number(s): [id number] cc: Jessi Dueñas; Ashley Duncan EXAMINATION: XR UPPER GI AIR CONTRAST STUDY. CLINICAL INFORMATION: Difficulty swallowing liquids and solids. COMPARISON: None available. FINDINGS/ FL/FL upper GI w Ba Swallow IMPRESSION: The exam was terminated as patient was unable to swallow thick thick or thin barium. Patient been refused exam. Fluoroscopy time: 53 seconds. Dose area product: 23.6 dGy/cm2 Electronically signed by: Merritt Elizalde MD 09/09/2024 09:04 AM EDT Dictated By: Merritt Elizalde MD Signed By: <Electronically signed by Merritt Elizalde MD in OV> 09/09/24903 DD/ TD/TT: 09/09/24 0845 Doctor Of Osteopathy: [facility] Procedure Note Donotuseinterpreter, Image - 09/09/[address] [address] Fluoroscopy Report Signed Patient: Kera ArmstrongMR#: [id number] : 1980Acct:[id number] Age/Sex: 43 / FADM Date: 09/09/24 Loc: [facility] Attending Dr: Ashley Duncan CAP SIZER-ANABELLE Ordering Physician: Ashley Duncan Date of Service: 09/09/24 Procedure(s): FL upper GI w Ba Swallow Accession Number(s): [id number] cc: Jessi Dueñas; Ashley Duncan CAP SIZER- EXAMINATION: XR UPPER GI AIR CONTRAST STUDY. CLINICAL INFORMATION: Difficulty swallowing liquids and solids. COMPARISON: None available. FINDINGS/ FL/FL upper GI w Ba Swallow IMPRESSION: The exam was terminated as patient was unable to swallow thick thick or thin barium. Patient been refused exam. Fluoroscopy time: 53 seconds. Dose area product: 23.6 dGy/cm2 Electronically signed by: Merritt Elizalde MD 09/09/2024 09:04 AM EDT RP Dictated By: Merritt Elizalde MD Signed By: <Electronically signed by Merritt Elizalde MD in OV> 09/09/24903 DD/ 9 TD/TT: 09/09/24844 Doctor Of Osteopathy: [facility] Exter nal Provider IMG FLUOROSCOPY PROCEDURES Edited Result - Final * Hepatitis Panel, General (05/17/2024 9:40 AM EST) Pathologist [facility] Hepatitis A IgM Nonreactive Nonreactive [facility] Comment:IgM antibodies to AMAYA V not detected; does not exclude earlyacute or recovered HAV infection. ~Hepatitis B Surface Antibody REACTIVE Nonreactive [facility] Comment:REACTIVE: > 11.99 mI U/mL Hepatitis B Core Antibody Nonreactive Nonreactive [facility] Hepatitis C Antibody Nonreactive Nonreactive [facility] Comment:Antibodies to HCV no t detected; does not exclude early acuteHCV infection. Hepatitis B Surface Ag Negative Negative [facility] 05/17/2024 9:40 AM EST 05/17/2024 9:40 AM EST Generic External Data Provider LAB BLOOD ORDERAB LES Final Result [facility] [address] [place] [phone] * HIV-1/2 Antigen and Antibodies, Fourth Generation, with Reflexes (05/17/2024 9:40 AM EST) HIV AB/AG Nonreactive Nonreactive [facility] Comment:HIV-1 p24 Ag and/or HIV-1/HIV-2 Ab not detected.A test result that is nonreactive does not exclude thepossibility of exposure to or infection with HIV-1 and/orHIV-2. Nonreactive results in this assay for individualswith prior exposure to HIV-1 and/or HIV-2 may be due toantigen and antibody levels that are below the limit ofdetection of this assay.The [employer] HIV Ag/Ab Combo assay result andsupplemental assay results should be interpreted inconjunction with the patient's clinical presentation,history and other laboratory results. If the results areinconsistent with clinical evidence, additional testing issuggested to confirm the result. 05/17/2024 9:40 AM EST 05/17/2024 9:40 AM EST us Generic External Data Provider LAB BLOOD ORDERAB LES Final Result [facility] [address] [place] [phone] * THINPREP TIS PAP (02/22/2021 12:00 AM EST) Pathologist [facility] Clinical Information: None given [facility] COMMENT SEE COMMENT [facility] Comment: EXPLANATORY NOTE: The Pap is a screening test for cervical cancer. It is not a diagnostic test and is subject to false negative and false positive results. It is most reliable when a satisfactory sample, regularly obtained, is submitted with relevant clinical findings and history, and when the Pap result is evaluated along with historic and current clinical information. COMMENT: SEE COMMENT [facility] Comment: This case could not be evaluated with computer assisted technology. The slide was manually screened according to routine procedures. Director Hr Communications : SEE COMMENT [facility] Comment: KN, CT(ASCP) CT screening location: [place] [address] Interpretation/R esult: Negative for intraepithelial lesion or malignancy. [facility] LMP: NONE [facility]IV[facility] Prev. BX: NONE [facility]IV[facility] Prev. PAP: NONE [facility]IVEN [facility] SOURCE: None given [facility] Statement Of Adequacy: SEE COMMENT [facility] Comment: Satisfactory for evaluation. Endocervical/transformation zone component absent. Partially obscuring blood 02/22/2021 Jessi Dueñas MD LAB PATHOLOGY ORDERABLES Final Result Performing Organization Address [facility] Co de Phone Number [facility] [address] * HPV mRNA E6/E7 REFLEX TO HPV 16, 18/45 (02/22/2021 12:00 AM EST) HPV nRNA E6/E7 Not Detected Not Detected [facility] Comment: Methodology: Brewery Worker-Mediated Amplification This assay detects E6/E7 viral messenger RNA (mRNA) from 14 high-risk HPV types (16,18,31,33,35,39,45,51,52,56,58,59,66,68). The analytical performance characteristics of this assay have been determined by [employer]. The modifications have not been cleared or approved by the FDA. This assay has been validated pursuant to the CLIA regulations and is used for clinical purposes. For additional information, please refer to http://education.Non[employer]/faq/ZYH551y8 (This link if provided for information/ educational purposes only.) 02/22/2021 Jessi Dueñas MD LAB CYTOLOGY ORDERABLES Final Result Performing Organization Address [facility] de Phone Number [facility] [address] from Last 3 Months or Most Recently Relevant to Health Maintenance Insurance [facility] C3 HSN PARTIAL DENTAL-[facility] MEDICAID STAND ADULT Care Teams Refrigeration Engineering Teacher Relationship Specialty Start Date End Date Jessi Dueñas MD [address] [place] [address] [place] [address] PCP - General Family Medicine 11/24/20 Mikayla Bhagat DelineatorSilviculturist 05/09/23
--- OUTSIDE RECORDS SUMMARY | 2024-11-27 13:58 | XMS_ITS | Encounter Summary ---
Author Organization [employer] Address [address] [facility] [address] 7t [place] [address] Care Team Providers Care Associate Media Planner Name Role Phone Jessi Dueñas MD Primary Care Provider [phone] Encounter Details Date Type Department Care Team ([facility] st Contact Info) Description 09/22/2023 Orders Only [facility] [address] [place] [address] Jessi Dueñas MD [address] [place] [address] Social History Tobacco Use Types Packs/Day Years [...] Description 01/13/2025 1:30 PM EDT Office Visit [facility] [address] [place] [address] Jessi Dueñas MD [address] [place] [address] 02/04/2025 9:30 AM EST Clinical Support [address] [address] 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, RN documented as of this encounter Visit Diagnoses Not on filedocumented in this encounter Additional Health Concerns Assessment Noted Time PHQ-9 Depression Total Score: 8 09/19/19 24 11:07 AM EDT documented as of this encounter Care Teams Associate Media Planner Relationship Specialty Start Date End Date Jessi Dueñas MD [address] [place] [address] PCP - General Family Medicine 11/24/20 Mikayla Bhagat Riveting Machine Operator AutomaticClinic Physician Director 05/09/23 documented as of this encounter
== END 2024-11-27 13:56 | disposition home or self-care (01) ==
LOC: HO.HOS 13:17
PROVIDERS: PCP General Practice; Visit Provider Orthopaedic Surgery
DX: M17.12 Unilateral primary osteoarthritis, left knee (principal)
CPT/HCPCS: 20610; 99213

== ENCOUNTER → 2024-11-27 13:17 | Outpatient (BNVA) | payer MEDICAID, SELFPAY | PROVIDERS: PCP General Practice; Visit Provider Orthopaedic Surgery | DX: M17.12 Unilateral primary osteoarthritis, left knee (principal) | CPT/HCPCS: 20610; 99212; J1010; J2003 ==

== ENCOUNTER 2024-12-05 08:43 | Outpatient (REF) | payer MEDICAID, SELFPAY ==
--- NOTE | ~2024-12-05 | CT_ITS ---
EXAMINATION: CT ABDOMEN AND PELVIS WITHOUT AND WITH CONTRAST CLINICAL INFORMATION: Gross hematuria. COMPARISON: March 15, 2022. Correlated to ultrasound kidney dated May 16, 2023.. TECHNIQUE: Noncontrast CT of the abdomen and pelvis is performed followed by split bolus contrast-enhanced images using 85 mL Omnipaque 350 contrast. Postcontrast imaging is performed during the combined nephrogram and excretion phase. Sagittal and coronal reformatted images were obtained on the technologist's workstation for both the precontrast and postcontrast phases. This CT examination was performed using dose optimization techniques as appropriate, variously including the following: *Automated exposure control *Adjustment of mA and/or kV according to patient size (this includes techniques or standardized protocols for targeted exams where dose is matched to indication/reason for exam; i.e. extremities or head) *Use of iterative reconstruction technique DLP: 382 mGy centimeter. FINDINGS: LIVER, GALLBLADDER, AND BILIARY TREE: Liver measures 16 cm. No focal mass. Main portal vein and hepatic veins and intrahepatic portion of the IVC are patent. Gallbladder is fluid-filled nondistended. No pericholecystic fluid collection or gallbladder wall thickening. No intrahepatic or extrahepatic biliary ductal dilatation. PANCREAS: No focal mass. No peripancreatic fluid collection. No main pancreatic ductal dilatation. SPLEEN: 9 cm. No focal mass. ADRENAL GLANDS: No nodular lesions. KIDNEYS AND URETERS: No hydronephrosis. No nephrolithiasis. Normal enhancement of the renal parenchyma. Focal cortical defect in the posterior midportion lower pole junction of the right kidney. Normal urinary excretion into the collecting system without gross intraluminal filling defects. BLADDER: Fluid-filled and subsequent enhancement from the urinary excretion. No gross wall thickening. GASTROINTESTINAL TRACT: Abundant stool throughout the large intestine. No intestinal obstruction pattern. No pneumatosis intestinalis. No intestinal wall thickening. No air-fluid levels. I cannot clearly identify the appendix, though no edema pattern in the mesocecum. No ascites. No pneumoperitoneum. No peripheral enhancing fluid collections, peritoneal cavity. ABDOMINAL WALL: No umbilical hernia. LYMPH NODES: No mesenteric or retroperitoneal lymphadenopathy. VASCULAR: No gross calcified plaque. No aneurysm or dissection abdominal aorta. PELVIC VISCERA: T-shaped intrauterine contraceptive device in place. No gross masses. Probable 2.4 cm cyst, left adnexa. OSSEUS STRUCTURES: [Castellvi type III sacralization with pseudoarthrosis from the transverse processes of the labral L5 vertebra. Grade 1 retrolisthesis L4-5. Dextroconvex curvature of the lumbar spine which could be positional. CT/CT urogram IMPRESSION: No hydronephrosis or nephrolithiasis or gross renal mass. Electronically signed by: Frederic Link MD 12/05/2024 09:59 AM EDT
--- OUTSIDE RECORDS SUMMARY | 2024-12-05 09:13 | XMS_ITS | Encounter Summary ---
Author Organization [facility] Address [address] [facility] [address] 7t [place] [address] Care Team Providers Care Air Motor Repairer Name Role Phone Jessi Dueñas MD Primary Care Provider [phone] Reason for Visit * Reason Onset Date [...] Contact Info) Description 06/03/2024 Refill [facility] [address] [place], [place] [phone] Jessi Dueñas MD [address] [place], [place] [phone] Fibromyalgia Social History Tobacco Use Types Packs/Day [...] 1:30 PM EDT Office Visit [facility] [address] [place] [address] Jessi Dueñas MD [address] [place] [address] 02/04/2025 9:30 AM EST Clinical Support [address] [address] 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, HERNANDEZ documented as of this encounter Visit Diagnoses Diagnosis Fibromyalgia Unspecified myalgia and myositis documented in this encounter Additional Health Concerns Assessment Noted Time PHQ-9 Depression Total Score: 8 09/19/19 24 11:07 AM EDT documented as of this encounter Care Teams Air Motor Repairer Relationship Specialty Start Date End Date Jessi Dueñas MD [address] [place] [address] PCP - General Family Medicine 11/24/20 Mikayla Bhagat Sql TechLegal Administrative Assistant 05/09/23 documented as of this encounter
--- OUTSIDE RECORDS SUMMARY | 2024-12-05 09:13 | XMS_ITS | Encounter Summary ---
Author Organization [employer] Address [address] [facility] 7t [place] [address] Care Team Providers Care Print Binding And Finishing Worker Name Role Phone Jessi Dueñas MD Primary Care Provider [phone] Reason for Referral * Consultation (Routine) - Closed Specialty Diagnoses / Procedures Referred By Contac t Referred To Contact Physical Therapy Diagnoses Acute bilateral low back pain without sciatica Chronic pain of both knees Bilateral hand pain Jessi Dueñas MD [address] [place] [address] Phone: tel: fax: [facility] [address] Phone: tel: fax: Referral ID Status Reason Start Date Expiration Date V isits Requested Visits Authorized [id number] Closed Specialty Services Required 04/17/2024 04/17/2025 20 20 Encounter Details Date Type Department Care Team (Late st Contact Info) Description 04/17/2024 Orders Only [facility] [address] [place] [phone] Jessi Dueñas MD [address] [place] [address] Acute bilateral low back pain without sciatica [...] 01/13/2025 1:30 PM EDT Office Visit [facility] 230 [place] [address] Jessi Dueñas MD 230 [place] [address] 02/04/2025 9:30 AM EST Clinical Support [facility] [address] [place] [address] 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, HERNANDEZ Scheduled Referrals Name Type [...] documented as of this encounter Care Teams Print Binding And Finishing Worker Relationship Specialty Start Date End Date Jessi Dueñas MD [address] [place] [address] PCP - General Family Medicine 11/24/20 Mikayla Bhagat Fruit SorterUnderground Miner 05/09/23 documented as of this encounter
--- OUTSIDE RECORDS SUMMARY | 2024-12-05 09:13 | XMS_ITS | Encounter Summary ---
Author Organization [employer] Address [address] [facility] [address] 7t [place] [address] Care Team Providers Care Spice Cleaner Name Role Phone Jessi Dueñas MD Primary Care Provider [phone] Reason for Visit * Reason Comments Med Refill Encounter Details Date Type Department Care Team (Late st Contact Info) Description 09/10/2024 Refill [facility] 230 [place] [address] Jessi Dueñas MD 230 [place] [address] Fibromyalgia Social History Tobacco Use Types Packs/Day [...] Description 01/13/2025 1:30 PM EDT Office Visit [facility] 230 [place] [address] Jessi Dueñas MD 230 [place] [address] 02/04/2025 9:30 AM EST Clinical Support [facility] [address] [facility] [place] [address] 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, RN documented as of this encounter Visit Diagnoses Diagnosis Fibromyalgia Unspecified myalgia and myositis documented in this encounter Additional Health Concerns Assessment Noted Time PHQ-9 Depression Total Score: 24 025 9:47 AM EDT documented as of this encounter Care Teams Spice Cleaner Relationship Specialty Start Date End Date Jessi Dueñas MD [facility] [place] [address] PCP - General Family Medicine 11/24/20 Mikayla Bhagat Sap TrainerDrier 05/09/23 documented as of this encounter
--- OUTSIDE RECORDS SUMMARY | 2024-12-05 09:14 | XMS_ITS | Encounter Summary ---
Author Organization [employer] Address 75 [facility] 7t [place] [address] Care Team Providers Care Automatic Quilling Machine Operator Name Role Phone Jessi Dueñas MD Primary Care Provider Reason for Visit * Reason Onset Date Comments Results 05/23/2023 Encounter Details Date Type Department Care Team ([facility] st Contact Info) Description 05/23/[address] [facility] 230 [place] [address] Jessi Dueñas MD 230 [place] [address] Results Social History Tobacco Use Types Packs/Day [...] T/C to pt. For below message through Shop [place] id - [id number], pt. Informed regarding normal x-ray result. pt. [...] case of any new or worsening symptoms. [facility] hours are reviewed. Pt. Verbally agreed and understood. * Telephone Encounter - Paco Sylvester - 05/24/2023 3:59 PM EST Tc from pt returning call. Please contact at [phone] * Telephone Encounter - Yumiko Whitaker RN - 05/24/2023 12:47 PM EST Return T/C to pt. For bellow message Normal x-ray result. No answer. LVM to call back on [phone]. * Telephone Encounter - Bran Parker - 05/23/2023 4:41 PM EST TC from pt requesting call back regarding Results. Type of results: X-Ray Date when done: 05/16/23 Facility: [facility] documented in this encounter Plan of Treatment Upcoming Encounters Date Type Department Care Team (Late st Contact Info) Description 01/13/2025 1:30 PM EDT Office Visit [address] [address] Jessi Dueñas MD [address] [place] [address] 02/04/2025 9:30 AM EST Clinical Support [facility] [address] [place] [address] 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 RN documented as of this encounter Visit Diagnoses Not on filedocumented in this encounter Additional Health Concerns Assessment Noted Time PHQ-9 Depression Total Score: 20 023 9:49 AM EDT documented as of this encounter Care Teams Automatic Quilling Machine Operator Relationship Specialty Start Date End Date Jessi Dueñas MD [address] [place] [address] PCP - General Family Medicine 11/24/20 Mikayla Bhagat Manager EnterpriseFounder President And Ceo 05/09/23 documented as of this encounter
--- OUTSIDE RECORDS SUMMARY | 2024-12-05 09:14 | XMS_ITS | Encounter Summary ---
Author Organization [facility] Address [address] [facility] 7t [place] [address] Care Team Providers Care Body Cleaner Name Role Phone Jessi Dueñas MD Primary Care Provider [phone] Reason for Visit * Reason Onset Date Comments Referral 12/23/2022 Encounter Details Date Type Department Care Team ([facility] st Contact Info) Description 12/23/2022 Telephone [facility] 230 [place] [address] Jessi Dueñas MD 230 [place] [address] Referral Social History Tobacco Use Types Packs/Day [...] have interpreters. Any questions, contact pt at [phone] (Vincentian) documented in this encounter Plan of Treatment Upcoming Encounters Date Type Department Care Team (Late st Contact Info) Description 01/13/2025 1:30 PM EDT Office Visit [address] [address] Jessi Dueñas MD [address] [place] [address] 02/04/2025 9:30 AM EST Clinical Support [address] [address] 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 RN documented as of this encounter Visit Diagnoses Not on filedocumented in this encounter Additional Health Concerns Assessment Noted Time PHQ-9 Depression Total Score: 19 023 2:59 PM EST documented as of this encounter Care Teams Body Cleaner Relationship Specialty Start Date End Date Jessi Dueñas MD [address] [place] [address] PCP - General Family Medicine 11/24/20 Mikayla Bhagat Film MaskerLand Appraiser 05/09/23 documented as of this encounter
--- OUTSIDE RECORDS SUMMARY | 2024-12-05 09:14 | XMS_ITS | Encounter Summary ---
Author Organization [employer] Address 75 [facility] 7t [place] [address] Care Team Providers Care Credit Risk Analyst Name Role Phone Jessi Dueñas MD Primary Care Provider [phone] Reason for Referral * Consultation (Routine) - Closed Specialty Diagnoses / Procedures Referred By Contac t Referred To Contact Physical Therapy Diagnoses Acute bilateral low back pain without sciatica Chronic pain of both knees Bilateral hand pain Jessi Dueñas MD [address] [place] [address] Phone: tel: fax: [facility] [address] Phone: tel: fax: Referral ID Status Reason Start Date Expiration Date V isits Requested Visits Authorized [id number] Closed Specialty Services Required 07/29/2024 07/29/2025 20 20 Encounter Details Date Type Department Care Team (Late st Contact Info) Description 07/26/2024 Orders Only [facility] [address] [place] [address] Jessi Dueñas MD [address] [place] [address] Acute bilateral low back pain without sciatica [...] Description 01/13/2025 1:30 PM EDT Office Visit [address] [address] Jessi Dueñas MD [address] [place] [address] 02/04/2025 9:30 AM EST Clinical Support [address] [address] 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, RN Scheduled Referrals Name Type [...] documented as of this encounter Care Teams Credit Risk Analyst Relationship Specialty Start Date End Date Jessi Dueñas MD [address] [place] [address] PCP - General Family Medicine 11/24/20 Mikayla Bhagat Shake Backboard NotcherDirector Of Dance 05/09/23 documented as of this encounter
--- OUTSIDE RECORDS SUMMARY | 2024-12-05 09:14 | XMS_ITS | Encounter Summary ---
Author Organization [employer] Address [address] [facility] [address] 7t [place] [address] Care Team Providers Care Size Painter Name Role Phone Jessi Dueñas MD Primary Care Provider Encounter Details Date Type Department Care Team ([facility] st Contact Info) Description 09/22/2023 Orders Only [facility] 230 [place] [address] Jessi Dueñas MD 230 [place] [address] Social History Tobacco Use Types Packs/Day Years [...] Description 01/13/2025 1:30 PM EDT Office Visit [facility] [address] [place] [address] Jessi Dueñas MD 230 [place] [address] 02/04/2025 9:30 AM EST Clinical Support [address] [address] 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, RN documented as of this encounter Visit Diagnoses Not on filedocumented in this encounter Additional Health Concerns Assessment Noted Time PHQ-9 Depression Total Score: 8 09/19/19 24 11:07 AM EDT documented as of this encounter Care Teams Size Painter Relationship Specialty Start Date End Date Jessi Dueñas MD [address] [place] [address] PCP - General Family Medicine 11/24/20 Mikayla Bhagat Web Content ProducerHome Health Nurse 05/09/23 documented as of this encounter
--- OUTSIDE RECORDS SUMMARY | 2024-12-05 09:14 | XMS_ITS | Clinical Summary ---
Author Organization [employer] Address [address] [facility] 7t [place] [address] Care Team Providers Care Automatic Cigar Wrapper Tender Name Role Phone Jessi Dueñas MD Primary Care Provider [phone] Allergies Active Allergy Reactions Criticality Noted Date [...] FOR SWELLING 90 tablet 2 023 Active Lactobacillus 0.05-0.05 MG tabletIndications :Weight loss of more than 10% body weight Take 1 tablet by mouth Once per day. 90 tablet 3 Active fluticasone (Flonase) 50 MCG/ACT nasal sprayIndications: Allergic rhinitis, unspecified seasonality, unspecified trigger INHALE 2 SPRAYS IN EACH NOSTRIL ONCE DAILY DIRECTED 48 g 3 Active FLUoxetine (PROzac) 40 MG capsule Take 1 capsule (40 mg) by mouth Once per day. 30 capsule 11 025 2025 Active 27-1 MG tablet Take 1 tablet by mouth in the morning. 90 tablet 3 Active rOPINIRole (Requip) 4 MG tabletIndications :Restless leg syndrome Take 1 tablet (4 mg) by mouth at bedtime. 90 tablet 2 Active hydrocortisone 2.5 % cream APPLY TOPICALLY TO THE AFFECTED AREA(S) RECTALLY EVERY DAY 60 g 1 Active Fiber-Lax 625 MG tablet Take 1 tablet by mouth 2 times daily. 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 May repeat every 2-3 minutes if needed, alternating nostrils, until medical assistance becomes available. 2 each 3 025 2025 Active Asmanex HFA 200 MCG/ACT aerosol INHALE 1 PUFF BY MOUTH TWICE DAILY, RINSE MOUTH AFTER USING. 13 g 1 025 Active traMADol (Ultram) 50 MG tabletIndications :Polyarthralgia,F ibromyalgia Take 1 tablet (50 mg) by mouth every 12 (twelve) hours if needed for severe pain for up to 28 days. Do not start before November 28, 2024. 56 tablet 025 2024 Active cholecalciferol VITAMIN D (Vitamin D-3) 50 MCG (2000 UT) tablet TAKE 1 TABLET BY MOUTH EVERY MORNING 90 tablet 3 Active montelukast (Singulair) 10 MG tablet TAKE 1 TABLET BY MOUTH EVERY EVENING FOR ASTHMA 90 tablet 3 025 Active cholecalciferol VITAMIN D (Vitamin D-3) 50 MCG (2000 UT) tablet TAKE 1 TABLET BY MOUTH EVERY MORNING 90 tablet 3 024 2024 Discontinued montelukast (Singulair) 10 MG tablet TAKE 1 TABLET BY MOUTH EVERY EVENING FOR ASTHMA 90 tablet 3 024 2024 Discontinued Asmanex HFA 200 MCG/ACT aerosol INHALE 1 [...] leg 07/30/2024 Anxiety 07/30/2024 Severe depression 07/30/2024 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 current use of 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 2024 Overview (07/01/2024): Dx: Rx: Last 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 AND 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 agreement: Tier II (visit every 3 months) [...] & Plan (12/08/2023 9:32 AM EDT): From electrical design technician last apt 09/2023 Labs showed low titer [...] & Plan (10/06/2023 12:39 PM EDT): From 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 design technician 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 apt 09/2023 Labs showed low titer [...] & Plan (09/19/2023 6:11 PM EDT): From electrical design technician last apt 09/2023 Labs showed low titer [...] has already asked an agency to do 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 DOOR ASSEMBLER evaluation To go to medical records and [...] 10:31 AM EST): Plan to see [facility] rheumatology in June [...] PM EST): Will send referral to [facility] rheumatology, JUANITO + , whole body pain, fatigue, all worse after two episodes of C diff Still likely fibromyalgia Recommend avoidance of marijuana and cocaine, drugs purchased on the street Assessment & Plan (01/04/2023 7:56 PM EDT): Will send referral to [facility] rheumatology, JUANITO + [...] Plan (02/20/2023 12:56 PM EST): Call [facility] to get appointment [...] aware of side effects, somnolence, 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 Hematoma of left knee [...] Encounters Date Type Department Care Team Description 12/04/2024 Refill [facility] [address] [place] [address] Jessi Dueñas MD 12/03/2024 Telephone [facility] [address] [place] [address] Jessi Dueñas MD telephone call 11/27/2024 Refill [facility] [address] [place] [address] Jessi Dueñas MD Polyarthralgia; Fibromyalgia 11/14/2024 Refill [facility] [address] [place] [address] Anita Kearns MD 11/07/2024 1:00 PM EDT Clinical Support [facility] [address] [place] [address] 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, HERNANDEZ 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 current use of 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 (Primary Dx) 11/07/2024 Refill [facility] [address] [place] [address] 25056 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, RN residential current use of 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 (Primary Dx) 11/07/2024 Travel 11/04/2024 Telephone [facility] [address] [place] [address] Jessi Dueñas MD Durable Medical Equipment (DME Request: Cane and Shower Bench) 11/04/[address] [address] Jessi Dueñas MD Medication Question 10/30/2024 3:00 PM EDT Office Visit [facility] [address] [place] [address] Jessi Dueñas MD Polyarthralgia (Primary Dx); Dietary counseling; Exercise counseling; Underweight; Whole body pain; Fibromyalgia; residential current use of 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; Severe depression (CMS/HCC); Chronic pain of both knees; Chronic bilateral low back pain, unspecified whether sciatica present; Pain in both hands 10/30/2024 Travel 10/29/2024 Telephone [facility] [address] [place] [address] Jessi Dueñas MD Chart Prep 10/25/[address] [address] Jessi Dueñas MD PT referral 10/21/2024 Patient Outreach [address] [address] Jessi Dueñas MD Pre-visit Planning (SDOH screening completed on 05/27/2024) 10/16/[address] [address] Jessi Dueñas MD Nurse Triage 10/15/2024 Orders Only [facility] External Provider, [facility] 10/02/2024 Orders Only GENERIC EXTERNAL DATA DEPARTMENT Provider, Generic External Data 09/30/2024 Orders Only [facility] External Provider, [facility] 09/11/[address] [address] Jessi Dueñas MD Durable Medical Equipment 09/10/2024 Refill [facility] [address] [place] [address] Jessi Dueñas MD Fibromyalgia 09/10/2024 Refill [facility] [address] [place] [address] 710[address] Jessi Dueñas MD Fibromyalgia (Primary Dx) 09/10/2024 Refill [facility] [address] [place] [address] Jessi Dueñas MD Fibromyalgia from Last 3 Months Immunizations Immunization Administration [...] the past 12 months, has t he [employer], gas, oil or water company threatened to [...] Description 01/13/2025 1:30 PM EDT Office Visit [facility] [address] [place] [address] Jessi Dueñas MD [address] [place] [address] 02/04/2025 9:30 AM EST Clinical Support [facility] [address] [place] [address] [phone] 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, HERNANDEZ Health Maintenance Due Date Last Done Comments Dental Oral Exam 1980 Dental Prophylaxis 1980 Dental X-Ray: Full Mouth 1980 Hepatitis B Vaccines (1 of 3 - 19+ 3-dose series) 2001 Pneumococcal Vaccine: Pediatrics (0 to 5 Years) and At-Risk Patients (6 to 49) Years (1 of 2 - PCV) 2001 COVID-19 Vaccine ( season) 2024 09/19/2023, 07/06/2021, 08/10/2020, Additional history exists Influenza [...] DRUG SCREEN Routine 11/07/2024 1:02 PM EDT residential current use of 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 US PELVIS TRANSVAGINAL Routine 5 1:03 PM EDT CYTOPATH-CELL ENHANCED Routine 4:48 PM EDT BI MAMMOGRAM SCREENING TOMOSYNTHESIS BILATERAL Routine 09/30/2024 10:50 AM EDT FL UPPER GI W BARIUM SWALLOW Routine 09/09/2024 8:30 AM EDT BITEWING - SINGLE RADIOGRAPHIC IMAGE [...] / Unknown 11/07/2024 1:02 PM EDT Narrative 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 RN - 11/07/2024 1:02 PM EDT UTOX cup Lot#[id number] Exp. 01/07/26 Internal Pass Control us Jessi Dueñas MD POINT OF CARE TEST ENTER/EDIT ORDERABLES Final Result * US Pelvis Transvaginal (10/15/2024 1:03 PM EDT) Anatomical Region Laterality Modality Pelvis Ultrasound 10/15/2024 1:03 PM EDT Narrative 10/15/2024 1:51 PM EDT [address] [address] Ultrasound Report Signed Patient: Kera Armstrong MR#: [id number] : 1980 Acct:[id number] Age/Sex: 43 / F ADM Date: 10/15/24 Loc: HO.US Attending Dr: Harjit Parada MD Ordering Physician: Harjit Parada MD Date of Service: 10/15/24 Procedure(s): US pelvic and transvaginal Accession Number(s): [id number] cc: Jessi Dueñas; Harjit Parada MD EXAMINATION: [...] 10/15/24 1348 DD/ 1303 TD/TT: 10/15/24 1322 Local Superintendent: Procedure Note Donotuseinterpreter, Image - 10/15/2024 [place] [address] Ultrasound Report Signed Patient: Kera ArmstrongMR#: [id number] : 1980Acct:[id number] Age/Sex: 43 / FADM Date: 10/15/24 Loc: HO.US Attending Dr: Harjit Parada MD Ordering Physician: Harjit Parada MD Date of Service: 10/15/24 Procedure(s): US pelvic and transvaginal Accession Number(s): [id number] cc: Jessi Dueñas; Harjit Parada MD EXAMINATION: [...] 10/15/24 1348 DD/ 1303 TD/TT: 10/15/24 1322 Local Superintendent: us [facility] External Provider IMG US PROCEDURES Final Result * Cytopath-cell enhanced (10/02/2024 4:48 PM EDT) 10/02/2024 4:48 PM EDT 10/03/2024 8:45 AM EDT [facility] - 10/03/2024 4:11 PM EDT ----- ------- Name: Kera Armstrong Age/Sex: 43/F : 1980 Unit#: [id number] Attend Dr: Marlena Garrison [facility] Re10/02/24 Status: DEP REF Location: HO.LNP Disch: ----- ------- SPEC : [id number] RECD: 10/03/24 STATUS: LUKE FREEMAN NUM: [id number] BRUCE: 10/02/24-[address]: Marlena Garrison [facility] ENTERED: 10/03/24 SP TYPE: Cytology OTHR DR: [...] developed and their performance characteristics determined by [facility]. They have not been cleared or approved by the U.S. Food and Drug Administration (FDA). However, the FDA has determined that such clearance or approval is not necessary. This laboratory is certified under the Clinical Laboratory Improvement Amendments of 1988 (CLIA) as qualified to perform high complexity clinical laboratory testing. Copies To: Jessi Dueñas [address] [place] [address] Marlena Garrison [facility] [address] [place] [address] [address] [place] [address] [email or web address] CONTINUED ON NEXT PAGE ----- ------- Name: Kera Armstrong Age/Sex: 43/F : 1980 Unit#: [id number] Attend Dr: Marlena Garrison [facility]- Re10/02/24 Status: DEP REF Location: [facility] Disch: ----- ------- SPEC : [id number] RECD: 10/03/24 STATUS: LUKE FREEMAN NUM: [id number] BRUCE: 10/02/[address]: Marlena Garrison [facility]- ENTERED: 10/03/24 SP TYPE: Cytology OTHR DR: Jessi Dueñas ORDERED: Cyto-enhanced ----- ------- Signed (signature on file) Asaf Tsai MD 10/03/24 1611 ----- ------- END OF REPORT us Generic External Data Provider LAB CYTOLOGY ENRRIQUE ANTHNOY Final Result [facility] [address] [place] [phone] * BI Mammogram Screening Tomosynthesis Bilateral (09/30/2024 10:50 AM EDT) Anatomical Region Laterality Modality Breast Bilateral Mammography 09/30/2024 10:5 0 AM EDT Narrative 10/13/2024 1:37 PM EDT [address] [place] [address] Mammography Report Signed Patient: Kera Armstrong MR#: [id number] : 1980 Acct:[id number] Age/Sex: 43 / F ADM Date: 09/30/24 Loc: HO.MAMMO Attending Dr: Harjit Parada MD Ordering Physician: Harjit Parada MD Results: 1Negativ e Date of Service: 09/30/24 Follow Up: 1 Year From Orig inal Mammogram Procedure(s): MM tomosynthesis screening BI Accession Number(s): [id number] cc: Jessi Dueñas; Harjit Parada MD EXAMINATION: [...] 10/13/24 1334 DD/ 1050 TD/TT: 09/30/24 1154 Local Superintendent: Procedure Note Donotuseinterpreter, Image - 10/13/[address] [place], [place] [address] Mammography Report Signed Patient: Kera ArmstrongMR#: [id number] : 1980Acct:[id number] Age/Sex: 43 / FADM Date: 09/30/24 Loc: HO.MAMMO Attending Dr: Harjit Parada MD Ordering Physician: Harjit Parada MDResults: 1Negativ e Date of Service: 09/30/24Follow Up: 1 Year From Orig inal Mammogram Procedure(s): MM tomosynthesis screening BI Accession Number(s): [id number] cc: Jessi Dueñas; Harjit Parada MD EXAMINATION: [...] 10/13/24 1334 DD/ 1050 TD/TT: 09/30/24 1154 Local Superintendent: [facility] External Provider IMG BI PROCEDURES Final Result * FL Upper GI w/Barium Swallow (09/09/2024 8:30 AM EDT) Anatomical Region Laterality Modality Body Radiographic Eboni ging 09/09/2024 8:30 AM EDT Narrative 09/09/2024 9:08 AM EDT [address] [address] Fluoroscopy Report Signed Patient: Kera Armstrong MR#: [id number] : 1980 Acct:[id number] Age/Sex: 43 / F ADM Date: 09/09/24 Loc: WILI Attending Dr: Ashley Duncan PASTEURIZING SUPERVISOR-ANABELLE Ordering Physician: Ashley Duncan Date of Service: 09/09/24 Procedure(s): FL upper GI w Ba Swallow Accession Number(s): [id number] cc: Jessi Dueñas; Ashley Duncan EXAMINATION: XR [...] Merritt Elizalde MD in OV> 09/09/24903 DD/ 0830 TD/TT: 09/09/24 0845 Local Superintendent: [facility] Procedure Note Donotuseinterpreter, Image - 09/09/[address] [address] Fluoroscopy Report Signed Patient: Kera ArmstrongMR#: [id number] : 1980Acct:[id number] Age/Sex: 43 / FADM Date: 09/09/24 Loc: WILI Attending Dr: Ashley Duncan PASTEURIZING SUPERVISORALPHONSE Ordering Physician: Ashley Duncan Date of Service: 09/09/24 Procedure(s): FL upper GI w Ba Swallow Accession Number(s): [id number] cc: Jessi Dueñas; Ashley Duncan PASTEURIZING SUPERVISOR-BC EXAMINATION: XR UPPER GI AIR CONTRAST STUDY. [...] MD in OV> 09/09/24903 DD/ 9 TD/TT: 09/09/24 0845 Local Superintendent: [facility] Exter nal Provider IMG FLUOROSCOPY PROCEDURES Edited Result - Final * Hepatitis Panel, General (05/17/2024 9:40 AM EST) Hepatitis A IgM Nonreactive Nonreactive [facility] Comment:IgM antibodies to AMAYA V not detected; does not exclude earlyacute or recovered HAV infection. ~Hepatitis B Surface Antibody REACTIVE Nonreactive [facility] Comment:REACTIVE: > 11.99 mI U/mL Hepatitis B Core Antibody Nonreactive Nonreactive [facility] Hepatitis C Antibody Nonreactive Nonreactive [facility] Comment:Antibodies to HCV no t detected; does not exclude early acuteHCV infection. Hepatitis B Surface Ag Negative Negative [facility] 05/17/2024 9:40 AM EST 05/17/2024 9:40 AM EST Generic External Data Provider LAB BLOOD ORDERAB LES Final Result [facility] [address] [place] [address] [phone] * HIV-1/2 Antigen and Antibodies, Fourth Generation, with Reflexes (05/17/2024 9:40 AM EST) HIV AB/AG Nonreactive Nonreactive [facility] Comment:HIV-1 p24 Ag and/or HIV-1/HIV-2 Ab not detected.A test result that is nonreactive does not exclude thepossibility of exposure to or infection with HIV-1 and/orHIV-2. Nonreactive results in this assay for individualswith prior exposure to HIV-1 and/or HIV-2 may be due toantigen and antibody levels that are below the limit ofdetection of this assay.The [employer] HIV Ag/Ab Combo assay result andsupplemental assay results should be interpreted inconjunction with the patient's clinical presentation,history and other laboratory results. If the results areinconsistent with clinical evidence, additional testing issuggested to confirm the result. 05/17/2024 9:40 AM EST 05/17/2024 9:40 AM EST us Generic External Data Provider LAB BLOOD ORDERAB LES Final Result [facility] [address] [place] [phone] * THINPREP TIS PAP (02/22/2021 12:00 AM EST) Clinical Information: None given [facility] COMMENT SEE COMMENT FOUNDATI ON [...] was manually screened according to routine procedures. Temple Marker : SEE COMMENT [facility] Comment: KN, CT(ASCP) CT screening location: [place] [address] Interpretation/R esult: Negative for intraepithelial lesion or malignancy. [facility] LMP: NONE GIVEN [facility] LAB [facility] Prev. BX: NONE GIVEN [facility] Prev. PAP: NONE GIVEN [facility]OUND[facility] ON LAB SYSTEM SOURCE: None given [facility] Statement Of Adequacy: SEE COMMENT [facility] Comment: Satisfactory for evaluation. Endocervical/transformation zone component absent. Partially obscuring blood 02/22/2021 Jessi Dueñas MD LAB PATHOLOGY ORDERABLES Final Result Performing Organization Address [facility] Co de Phone Number [facility] [address] * HPV mRNA E6/E7 REFLEX TO HPV 16, 18/45 (02/22/2021 12:00 AM EST) HPV nRNA E6/E7 Not Detected Not Detected [facility] Comment: Methodology: Contract Manager-Mediated Amplification This assay detects E6/E7 viral messenger RNA (mRNA) from 14 high-risk HPV types (16,18,31,33,35,39,45,51,52,56,58,59,66,68). The analytical performance characteristics of this assay have been determined by [employer]. The modifications have not been cleared or approved by the FDA. This assay has been validated pursuant to the CLIA regulations and is used for clinical purposes. For additional information, please refer to http://education.[employer]/faq/IOP680j7 (This link if provided for information/ educational purposes only.) 02/22/2021 Jessi Dueñas MD LAB CYTOLOGY ORDERABLES Final Result Performing Organization Address [facility] de Phone Number [facility] [address] from Last 3 Months or Most Recently Relevant to Health Maintenance Insurance [facility] C3 HSN PARTIAL DENTAL-[facility] MEDICAID STAND ADULT Care Teams Automatic Cigar Wrapper Tender Relationship Specialty Start Date End Date Jessi Dueñas MD [address] [place] [address] PCP - General Family Medicine 11/24/20 Mikayla Bhagat Oracle Database DeveloperPipe Wrapping Machine Operator 05/09/23
--- OUTSIDE RECORDS SUMMARY | 2024-12-05 09:14 | XMS_ITS | Encounter Summary ---
Author Organization [employer] Address [address] [facility] [address]t [place] [address] Care Team Providers Care Crm Consultant Name Role Phone Jessi Dueñas MD Primary Care Provider [phone] Reason for Visit * Reason Comments Med Refill Encounter Details Date Type Department Care Team ([facility] st Contact Info) Description 11/23/2023 Refill [facility] [address] [place] [address] Jessi Dueñas MD [address] [place] [address] Social History Tobacco Use Types Packs/Day Years [...] Description 01/13/2025 1:30 PM EDT Office Visit [facility] [address] [place] [phone] Jessi Dueñas MD [address] [place] [address] 02/04/2025 9:30 AM EST Clinical Support [address] [address] 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, RN documented as of this encounter Visit Diagnoses Not on filedocumented in this encounter Additional Health Concerns Assessment Noted Time PHQ-9 Depression Total Score: 8 09/19/19 24 11:07 AM EDT documented as of this encounter Care Teams Crm Consultant Relationship Specialty Start Date End Date Jessi Dueñas MD [address] [place] [address] PCP - General Family Medicine 11/24/20 Mikayla Bhagat Scientific Laboratory SupervisorPrefinish Operator 05/09/23 documented as of this encounter
--- OUTSIDE RECORDS SUMMARY | 2024-12-05 09:14 | XMS_ITS | Encounter Summary ---
Author Organization [employer] Address [address] [facility] [address]t [place] [address] Care Team Providers Care Clinical Immunologist Name Role Phone Jessi Dueñas MD Primary Care Provider [phone] Reason for Visit * Reason Onset Date Comments Other 01/05/2023 Encounter Details Date Type Department Care Team ([facility] st Contact Info) Description 01/05/2023 Telephone [facility] [address] [place] [address] Jessi Dueñas MD [address] [place] [address] Other Social History Tobacco Use Types Packs/Day [...] 12:53 PM EDT TC placed to pt [phone] to inform pt PCP sent Cymbalta to the pharmacy yesterday at [facility] for her pain. Pt reports she called [facility] pharmacy today and they told her that they did not receive the script. RN placed pt on hold and called [facility] pharmacy who confirmed they did receive [...] rheumatology referral d/t [facility] not speaking honduran. Pt was informed PCP has placed new rheumatology referral for [facility] yesterday. Pt verbalized understanding. Pt to f/u PRN. * Telephone Encounter - Divya Frank - 01/05/2023 11:51 AM EDT Tc from pt states PCP advised her she will send a script for pain on 01/04 appointment but pt never received medication. Please contact pt at [phone] (Iranian) documented in this encounter Plan of Treatment Upcoming Encounters Date Type Department Care Team (Late st Contact Info) Description 01/13/2025 1:30 PM EDT Office Visit [facility] [address] [place] [phone] Jessi Dueñas MD [address] [place] [address] 02/04/2025 9:30 AM EST Clinical Support [facility] [address] [place] [phone] 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 RN documented as of this encounter Visit Diagnoses Not on filedocumented in this encounter Additional Health Concerns Assessment Noted Time PHQ-9 Depression Total Score: 20 023 9:49 AM EDT documented as of this encounter Care Teams Clinical Immunologist Relationship Specialty Start Date End Date Jessi Dueñas MD [address] [place], [place] [address] [place] [address] PCP - General Family Medicine 11/24/20 Mikayla Bhagat Retirement Village ManagerHigh Density Press Operator 05/09/23 documented as of this encounter
--- OUTSIDE RECORDS SUMMARY | 2024-12-05 09:14 | XMS_ITS | Encounter Summary ---
Author Organization [employer] Address [address] [facility] 7t [place] [address] Care Team Providers Care Teacher Early Childhood Development Name Role Phone Jessi Dueñas MD Primary Care Provider [phone] Encounter Details Date Type Department Care Team ([facility] Contact Info) Description 03/29/2022 Orders Only [facility] [address] [place] [phone] Jessi Dueñas MD [address] [place] [phone] Choking episode occurring at night (Primary Dx) [...] Upcoming Encounters Date Type Department Care Team ([facility] Contact Info) Description 01/13/2025 1:30 PM EDT Office Visit [facility] [address] [place] [address] Jessi Dueñas MD [address] [place] [address] 02/04/2025 9:30 AM EST Clinical Support [facility] [address] [place] [address] 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 RN documented as of this encounter Visit Diagnoses Diagnosis Choking episode occurring at night- Primary documented in this encounter Care Teams Teacher Early Childhood Development Relationship Specialty Start Date End Date Jessi Dueñas MD [address] [place] [address] PCP - General Family Medicine 11/24/20 Mikayla Bhagat Fuselage FramerHeat Treating Bluer 05/09/23 documented as of this encounter
--- OUTSIDE RECORDS SUMMARY | 2024-12-05 09:14 | XMS_ITS | Encounter Summary ---
Author Organization [employer] Address [address] [facility] [address] 7t [place] [address] Care Team Providers Care Aluminum Molder Name Role Phone Jessi Dueñas MD Primary Care Provider [phone] Reason for Visit * Reason Onset Date Comments PT-1 08/05/2024 Encounter Details Date Type Department Care Team (Late st Contact Info) Description 08/05/2024 Telephone [facility]INE 230 [place] [address] Jessi Dueñas MD 230 [place] [address] PT-1 Social History Tobacco Use Types Packs/Day [...] from pt requesting status of PT-[address] [place] [address] Please return call to pt with updates [phone] documented in this encounter Plan of Treatment Upcoming Encounters Date Type Department Care Team (Late st Contact Info) Description 01/13/2025 1:30 PM EDT Office Visit [address] [address] Jessi Dueñas MD [address] [place] [address] 02/04/2025 9:30 AM EST Clinical Support [address] [address] 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 RN documented as of this encounter Visit Diagnoses Not on filedocumented in this encounter Additional Health Concerns Assessment Noted Time PHQ-9 Depression Total Score: 24 025 9:47 AM EDT documented as of this encounter Care Teams Aluminum Molder Relationship Specialty Start Date End Date Jessi Dueñas MD [address] [place] [address] PCP - General Family Medicine 11/24/20 Mikayla Bhagat Power Equipment Technology InstructorPot Runner 05/09/23 documented as of this encounter
--- OUTSIDE RECORDS SUMMARY | 2024-12-05 09:14 | XMS_ITS | Encounter Summary ---
Author Organization [employer] Address 75 [facility] 7t [place] [address] Care Team Providers Care Back Roll Lathe Operator Name Role Phone Jessi Dueñas MD Primary Care Provider [phone] Reason for Visit * Reason Onset Date Comments Med Refill Tramadol refill denied 10/25/2023 Encounter Details Date Type Department Care Team (Late st Contact Info) Description 10/25/2023 Refill [facility] MED[facility]INE 230 [place] [address] Jessi Dueñas MD 230 [place], [place] [phone] Fibromyalgia Social History Tobacco Use Types Packs/Day [...] call her, when I get back from [place] and we can review this. Thank you! TC via P/I#[id number], unable to connect to the number, unable to leave message. Will forward message to PCP's M.A. to schedule a telephone appointment for patient as PCP requested. documented in this encounter Plan of Treatment Upcoming Encounters Date Type Department Care Team (Late st Contact Info) Description 01/13/2025 1:30 PM EDT Office Visit [facility] MED[facility]INE 230 [place], [place] [phone] Jessi Dueñas MD 230 [place] [address] 02/04/2025 9:30 AM EST Clinical Support [facility]INE 230 [place] [address] 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, HERNANDEZ documented as of this encounter Visit Diagnoses Diagnosis Fibromyalgia Unspecified myalgia and myositis documented in this encounter Additional Health Concerns Assessment Noted Time PHQ-9 Depression Total Score: 8 09/19/19 24 11:07 AM EDT documented as of this encounter Care Teams Back Roll Lathe Operator Relationship Specialty Start Date End Date Jessi Dueñas MD 230 [place] [address] PCP - General Family Medicine 11/24/20 Mikayla Bhagat Drum SprayerStudent Ministries Director 05/09/23 documented as of this encounter
--- OUTSIDE RECORDS SUMMARY | 2024-12-05 09:14 | XMS_ITS | Encounter Summary ---
Author Organization [employer] Address 75 [facility] 7 [place] [address] Care Team Providers Care Spanish Translator Name Role Phone Jessi Dueñas MD Primary Care Provider [phone] Reason for Visit * Reason Comments Med Refill Encounter Details Date Type Department Care Team ([facility] st Contact Info) Description 10/25/2023 Refill [facility] MED[facility]INE 230 [place] [address] Anita Arriaga MD 230 [place] [address] Social History Tobacco Use Types Packs/Day Years [...] Description 01/13/2025 1:30 PM EDT Office Visit [facility] MED[facility]INE [address] [place] [address] Jessi Dueñas MD [address] [place] [address] 02/04/2025 9:30 AM EST Clinical Support [address] [address] 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, HERNANDEZ documented as of this encounter Visit Diagnoses Not on filedocumented in this encounter Additional Health Concerns Assessment Noted Time PHQ-9 Depression Total Score: 8 09/19/19 24 11:07 AM EDT documented as of this encounter Care Teams Spanish Translator Relationship Specialty Start Date End Date Jessi Dueñas MD [address] [place] [address] PCP - General Family Medicine 11/24/20 Mikayla Bhagat Semiconductor Packages SealerForklift Driver 05/09/23 documented as of this encounter
--- OUTSIDE RECORDS SUMMARY | 2024-12-05 09:14 | XMS_ITS | Encounter Summary ---
Author Organization [employer] Address [address] [facility] [address] 7t [place] [address] Care Team Providers Care Extrusion Die Repairer Name Role Phone Jessi Dueñas MD Primary Care Provider [phone] Reason for Visit * Reason Comments Med Refill Encounter Details Date Type Department Care Team (Late st Contact Info) Description 12/04/2024 Refill [facility] 230 [place] [address] Jessi Dueñas MD 230 [place] [address] Social History Tobacco Use Types Packs/Day Years [...] EDT Office Visit [facility] [address] [place] [address] Jessi Dueñas MD 230 [place] [address] 02/04/2025 9:30 AM EST Clinical Support [facility] 230 [facility] [place] [address] 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, RN documented as of this encounter Visit Diagnoses Not on filedocumented in this encounter Additional Health Concerns Assessment Noted Time PHQ-9 Depression Total Score: 24 025 9:47 AM EDT documented as of this encounter Care Teams Extrusion Die Repairer Relationship Specialty Start Date End Date Jessi Dueñas MD [address] [facility] [place] [address] PCP - General Family Medicine 11/24/20 Mikayla Bhagat Shank StitcherReal Estate Paralegal 05/09/23 documented as of this encounter
--- OUTSIDE RECORDS SUMMARY | 2024-12-05 09:14 | XMS_ITS | Encounter Summary ---
Author Organization [employer] Address [address] [facility] [address] 7t [place] [address] Care Team Providers Care Metal Roofing Mechanic Name Role Phone Jessi Dueñas MD Primary Care Provider [phone] Reason for Visit * Reason Comments Med Refill Encounter Details Date Type Department Care Team (Late st Contact Info) Description 09/10/2024 Refill [facility] 230 [place] [address] Jessi Dueñas MD 230 [place] [address] Fibromyalgia Social History Tobacco Use Types Packs/Day [...] 1:30 PM EDT Office Visit [facility]INE 230 [place] [address] Jessi Dueñas MD 230 [place] [address] 02/04/2025 9:30 AM EST Clinical Support [facility] 230 [facility] [place] [address] 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, RN documented as of this encounter Visit Diagnoses Diagnosis Fibromyalgia Unspecified myalgia and myositis documented in this encounter Additional Health Concerns Assessment Noted Time PHQ-9 Depression Total Score: 24 025 9:47 AM EDT documented as of this encounter Care Teams Metal Roofing Mechanic Relationship Specialty Start Date End Date Jessi Dueñas MD [facility] [place] [address] PCP - General Family Medicine 11/24/20 Mikayla Bhagat Diabetes NurseMold Preparer 05/09/23 documented as of this encounter
--- OUTSIDE RECORDS SUMMARY | 2024-12-05 09:14 | XMS_ITS | Encounter Summary ---
Author Organization [employer] Address [address] [facility] [address] 7t [place] [address] Care Team Providers Care Gis Instructor Name Role Phone Jessi Dueñas MD Primary Care Provider [phone] Reason for Visit * Reason Onset Date Comments telephone call 12/03/2024 Encounter Details Date Type Department Care Team (Late st Contact Info) Description 12/03/2024 Telephone [facility]INE 230 [place] [address] Jessi Dueñas MD 230 [place] [address] telephone call Social History Tobacco Use Types Packs/Day Years [...] encounter Miscellaneous Notes * Telephone Encounter - Sandra Urban - 12/03/2024 2:51 PM EDT Pt walked in requesting a knee brace with hinges for both knees, she stated she received ones before but they are uncomfortable and would like the ones that have the [place] in the front of them to beable to move better. documented in this encounter Plan of Treatment Upcoming Encounters Date Type Department Care Team (Late st Contact Info) Description 01/13/2025 1:30 PM EDT Office Visit [address] [address] Jessi Dueñas MD [address] [place] [address] 02/04/2025 9:30 AM EST Clinical Support [address] [address] 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, HERNANDEZ documented as of this encounter Visit Diagnoses Not on filedocumented in this encounter Additional Health Concerns Assessment Noted Time PHQ-9 Depression Total Score: 24 025 9:47 AM EDT documented as of this encounter Care Teams Gis Instructor Relationship Specialty Start Date End Date Jessi Dueñas MD [address] [place] [address] PCP - General Family Medicine 11/24/20 Mikayla Bhagat Glass Cutter HelperFire Chief'S Aide 05/09/23 documented as of this encounter
--- OUTSIDE RECORDS SUMMARY | 2024-12-05 09:14 | XMS_ITS | Encounter Summary ---
Author Organization [employer] Address [address] [facility] [address] 7t [place] [address] Care Team Providers Care Automobile Spring Repairer Name Role Phone Jessi Dueñas MD Primary Care Provider [phone] Encounter Details Date Type Department Care Team (Late st Contact Info) Description 06/14/2024 Orders Only [facility] 230 [place] [address] Jessi Dueñas MD 230 [place] [address] Restless leg syndrome Social History Tobacco Use [...] [facility] MEDICINE [address] [place] [address] Jessi Dueñas MD [address] [place] [address] 02/04/2025 9:30 AM EST Clinical Support [address] [address] 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 RN documented as of this encounter Visit Diagnoses Diagnosis Restless leg syndrome Restless legs syndrome (RLS) documented in this encounter Additional Health Concerns Assessment Noted Time PHQ-9 Depression Total Score: 8 09/19/19 24 11:07 AM EDT documented as of this encounter Care Teams Automobile Spring Repairer Relationship Specialty Start Date End Date Jessi Dueñas MD [address] [place] [address] PCP - General Family Medicine 11/24/20 Mikayla Bhagat RadarmanSupervisory Clerk 05/09/23 documented as of this encounter
--- OUTSIDE RECORDS SUMMARY | 2024-12-05 09:14 | XMS_ITS | Encounter Summary ---
Author Organization [employer] Address [address] [facility] [address] 7t [place] [address] Care Team Providers Care Surface Mount Technology Operator Name Role Phone Jessi Dueñas MD Primary Care Provider [phone] Encounter Details Date Type Department Care Team ([facility] st Contact Info) Description 05/18/2023 Telephone [facility] 230 [place] [address] Jessi Dueñas MD 230 [place] [address] Social History Tobacco Use Types Packs/Day Years [...] Lopez RN - 05/18/2023 8:48 AM EST TV NEWS DIRECTOR referral made to [facility], referral form faxed with confirmation of receipt. documented in this encounter Plan of Treatment Upcoming Encounters Date Type Department Care Team (Late st Contact Info) Description 01/13/2025 1:30 PM EDT Office Visit [address] [address] Jessi Dueñas MD [address] [place] [address] 02/04/2025 9:30 AM EST Clinical Support [address] [address] 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, HERNANDEZ documented as of this encounter Visit Diagnoses Not on filedocumented in this encounter Additional Health Concerns Assessment Noted Time PHQ-9 Depression Total Score: 20 023 9:49 AM EDT documented as of this encounter Care Teams Surface Mount Technology Operator Relationship Specialty Start Date End Date Jessi Dueñas MD [address] [place] [address] PCP - General Family Medicine 11/24/20 Mikayla Bhagat Box Sealing Machine FeederFamily Medicine Physician Assistant 05/09/23 documented as of this encounter
--- OUTSIDE RECORDS SUMMARY | 2024-12-05 09:14 | XMS_ITS | Encounter Summary ---
Author Organization [employer] Address [address] [facility] [address] 7t [place] [address] Care Team Providers Care Supervisor Malt House Name Role Phone Jessi Dueñas MD Primary Care Provider [phone] Encounter Details Date Type Department Care Team ([facility] st Contact Info) Description 02/08/2023 Telephone [facility]INE 230 [place] [address] Jessi Dueñas MD 230 [place] [address] Social History Tobacco Use Types Packs/Day Years [...] 1:30 PM EDT Office Visit [facility] [address] [place] [address] Jessi Dueñas MD [address] [place] [address] 02/04/2025 9:30 AM EST Clinical Support [address] [address] 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, HERNANDEZ documented as of this encounter Visit Diagnoses Not on filedocumented in this encounter Additional Health Concerns Assessment Noted Time PHQ-9 Depression Total Score: 20 023 9:49 AM EDT documented as of this encounter Care Teams Supervisor Malt House Relationship Specialty Start Date End Date Jessi Dueñas MD [address] [place] [address] PCP - General Family Medicine 11/24/20 Mikayla Bhagat Stock PullerShipping And Receiving Operator 05/09/23 documented as of this encounter
--- OUTSIDE RECORDS SUMMARY | 2024-12-05 09:14 | XMS_ITS | Encounter Summary ---
Author Organization [employer] Address [address] [facility] [address] 7t [place] [address] Care Team Providers Care Livestock Counter Name Role Phone Jessi Dueñas MD Primary Care Provider [phone] Encounter Details Date Type Department Care Team (Late st Contact Info) Description 01/11/2023 Orders Only [facility] MEDICINE 230 [place] [address] Jessi Dueñas MD 230 [place] [address] Chronic pain of both knees (Primary Dx) [...] Description 01/13/2025 1:30 PM EDT Office Visit [facility] MED[facility]INE [address] [place] [address] Jessi Dueñas MD [address] [place] [address] 02/04/2025 9:30 AM EST Clinical Support [facility] MED[facility]INE [address] [place] [address] 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 RN documented as of this encounter Visit Diagnoses Diagnosis Chronic pain of both knees- Primary documented in this encounter Additional Health Concerns Assessment Noted Time PHQ-9 Depression Total Score: 20 023 9:49 AM EDT documented as of this encounter Care Teams Livestock Counter Relationship Specialty Start Date End Date Jessi Dueñas MD [address] [place] [address] PCP - General Family Medicine 11/24/20 Mikayla Bhagat Glue CookBusiness Intelligence Manager 05/09/23 documented as of this encounter
--- OUTSIDE RECORDS SUMMARY | 2024-12-05 09:14 | XMS_ITS | Encounter Summary ---
Author Organization [employer] Address [address] [facility] [address] 7t [place] [address] Care Team Providers Care Intelligence Chief Name Role Phone Jessi Dueñas MD Primary Care Provider [phone] Reason for Visit * Reason Onset Date Comments Call Back Request 01/23/2024 Encounter Details Date Type Department Care Team ([facility] st Contact Info) Description 01/23/2024 Telephone [facility]INE 230 [place] [address] Jessi Dueñas MD 230 [place] [address] Call Back Request Social History Tobacco Use [...] no scripts sent. Please contact pt at [phone]. (Armenian Speaker) documented in this encounter Plan of Treatment Upcoming Encounters Date Type Department Care Team (Late st Contact Info) Description 01/13/2025 1:30 PM EDT Office Visit [facility]INE [address] [place] [address] Jessi Dueñas MD [address] [place] [address] 02/04/2025 9:30 AM EST Clinical Support [address] [address] 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, HERNANDEZ documented as of this encounter Visit Diagnoses Not on filedocumented in this encounter Additional Health Concerns Assessment Noted Time PHQ-9 Depression Total Score: 8 09/19/19 24 11:07 AM EDT documented as of this encounter Care Teams Intelligence Chief Relationship Specialty Start Date End Date Jessi Dueñas MD 230 [place] [address] PCP - General Family Medicine 11/24/20 Mikayla Bhagat Broadcast Operations DirectorRadiographer 05/09/23 documented as of this encounter
--- OUTSIDE RECORDS SUMMARY | 2024-12-05 09:14 | XMS_ITS | Encounter Summary ---
Author Organization [employer] Address 75 [facility] 7t [place] [address] Care Team Providers Care Digestion Operator Name Role Phone Jessi Dueñas MD Primary Care Provider [phone] Encounter Details Date Type Department Care Team (Late st Contact Info) Description 10/12/2022 Orders Only [facility] MEDICINE [address] [place] [address] Jessi Dueñas MD [address] [place] [address] Acute bilateral low back pain, unspecified whether [...] Description 01/13/2025 1:30 PM EDT Office Visit [facility] MEDICINE [address] [place] [address] Jessi Dueñas MD 230 [place] [address] 02/04/2025 9:30 AM EST Clinical Support [facility] MEDICINE 230 [place] [address] 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, RN documented as of this encounter Visit Diagnoses Diagnosis Acute bilateral low back pain, unspecified whether sciatica present- Primary Hematoma of left knee region Sprain of left medial ankle joint, subsequent encounter documented in this encounter Additional Health Concerns Assessment Noted Time PHQ-9 Depression Total Score: 19 023 2:59 PM EST documented as of this encounter Care Teams Digestion Operator Relationship Specialty Start Date End Date Jessi Dueñas MD 230 [place] [address] PCP - General Family Medicine 11/24/20 Mikayla Bhagat Marketing AssistantRetail Account Executive 05/09/23 documented as of this encounter
--- OUTSIDE RECORDS SUMMARY | 2024-12-05 09:14 | XMS_ITS | Encounter Summary ---
Author Organization [employer] Address 75 [facility] 7t [place] [address] Care Team Providers Care Production Control Expediter Name Role Phone Jessi Dueñas MD Primary Care Provider [phone] Reason for Visit * Reason Onset Date Comments Nurse Triage 02/07/2023 Encounter Details Date Type Department Care Team ([facility] st Contact Info) Description 02/07/2023 Telephone [facility] MEDICINE [address] [place] [address] Jessi Dueñas MD 230 [place] [address] Nurse Triage Social History Tobacco Use Types [...] 02/07/2023 11:26 AM EST Triage call with [employer] Irrigationist Designer ID [id number] Pt reports ED visit @ [facility] 02/06/23 for abdominal pain and migraines. Report is requested from [facility] clinical manager respiratory care. Pt reports was supposed to be getting [...] lower back pain states she went to [facility] last on 02/06 and did nothing. Patient speaks [place] documented in this encounter Plan of Treatment Upcoming Encounters Date Type Department Care Team (Late st Contact Info) Description 01/13/2025 1:30 PM EDT Office Visit [facility] MEDICINE [address] [place] [address] Jessi Dueñas MD [address] [place] [address] 02/04/2025 9:30 AM EST Clinical Support [facility] MED[facility]INE [address] [place] [address] 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 RN documented as of this encounter Visit Diagnoses Not on filedocumented in this encounter Additional Health Concerns Assessment Noted Time PHQ-9 Depression Total Score: 20 023 9:49 AM EDT documented as of this encounter Care Teams Production Control Expediter Relationship Specialty Start Date End Date Jessi Dueñas MD 230 [place] [address] PCP - General Family Medicine 11/24/20 Mikayla Bhagat Towel WeaverMilk Pickup Driver 05/09/23 documented as of this encounter
[2024-12-05] MEDS: iohexoL 350 MG/ML 100 ML INFUS..BTL IV (09:43)
[2024-12-05 10:25] LABS: Blood Urea Nitrogen 15 mg/dL (9-16); Estimated Glomerular Filt Rate > 60
== END 2024-12-05 08:44 | disposition home or self-care (01) ==
LOC: HO.CT 08:43
PROVIDERS: PCP General Practice; Visit Provider Nurse Practitioner Family
DX: R31.0 Gross hematuria (principal)
CPT/HCPCS: 36415; 74178; 82565; 84520; Q9967

== ENCOUNTER → 2024-12-05 08:52 | Outpatient (BNV) | payer MEDICAID, SELFPAY | PROVIDERS: PCP General Practice; Visit Provider Radiology Diagnostic Radiology | DX: K59.00 Constipation, unspecified (principal) | CPT/HCPCS: 74178 ==

== ENCOUNTER 2025-01-23 13:29 | Outpatient (AMB) | payer MEDICAID, SELFPAY ==
--- NOTE | 2025-01-23 13:42 | A.OFFVIS_ITS ---
Intake Visit Reasons: Cysto/CT/Labs Intake Note: Patient presents for cysto/CT/labs * 12/[address] * 12/05 BUN:15/Creatinine:0.86 Urology Medications:None Blood Thinner: none Java Technical Manager Required: Yes Java Technical Manager Services: Java Technical Manager Present Java Technical Manager Name: Tamara Accompanied by: Self / Same As Patient Allergies cephalexin (From Keflex) Allergy (Intermediate, Verified 01/23/25 13:42) Eye Swelling morphine Allergy (Intermediate, Verified 01/23/25 13:42) Itching shellfish derived (SHELLFISH DERIVED) Allergy (Intermediate, Verified 01/23/25 13:42) swelling Medication List - Last Reconciled 01/23/25 by Shahrzad Flores MD albuterol sulfate 2.5 mg inhalation Q4-6H calcium carbonate (Antacid Ext Str (calcium carb)) 1 - 2 tabs PO DIRECTED cholecalciferol (vitamin D3) 50 mcg PO QAM clonazepam 0.75 mg PO BID PRN cyproheptadine 4 mg PO BID diphenhydramine HCl (Banophen) 25 - 50 mg PO BEDTIME PRN famotidine 20 mg PO QPM fiber tabs PO BID fluoxetine 40 mg PO QAM fluticasone propionate 220 mcg/actuation (Flovent HFA) 1 puff inhalation BID hydrocortisone 0.5% 1 appl topical DAILY PRN Lactobacillus acidoph-L.bulgar 1 million cell 1 tab PO QAM loperamide 4 mg (2 x 2 mg) PO TID PRN loratadine (Allergy Relief (loratadine)) 10 mg PO DAILY magnesium hydroxide (Milk of Magnesia) 5 mL PO BEDTIME methylcellulose (laxative) (Citrucel) 500 mg PO BID mometasone 200 mcg/actuation (Asmanex HFA) 1 puff inhalation BID montelukast 10 mg PO QPM multivit-iron sulf-folic acid 15 mg iron- 400 mcg (Tab-A-Kisha Multivitamin w- iron) 1 tab PO QAM nortriptyline 10 mg PO BEDTIME 90 days ondansetron 8 mg PO Q12H PNV,calcium 18-swdz-xsncu acid 27 mg iron- 1 mg ( Vitamins Plus Low Iron) 1 tab PO QAM ropinirole 4 mg PO BEDTIME sennosides (senna) 17.2 mg (2 x 8.6 mg) PO BEDTIME PRN solifenacin (Vesicare) 10 mg PO DAILY tramadol 50 mg PO Q12H PRN zolpidem 5 mg PO BEDTIME PRN HPI Comments Details: 01/23/25-- History of Present Illness The patient is a 44-year-old female presenting for office cystoscopy. H/O gross hematuria. Former nicotine dependence. She has urinary incontinence and bladder spasms. The urinary incontinence is characterized by spontaneous leakage, occurring unexpectedly. 30 minutes spent in review of records pertaining to this visit and including azns-jr-fuun discussion with the patient and documentation of this visit. Results - CTAP w/wo IV: 12/05/24--Kidneys--Normal results - Office cystoscopy - no suspicious bladder lesions Plan 1. Bladder Spasms 2. Urinary Incontinence - Prescribe Vesicare 10 mg daily to manage urinary incontinence. - Follow-up with nurse practitioner in 3 months to reassess symptoms. 10/02/24--Kera is a Kiswahili-speaking 43-year-old female patient of Dr. Dueñas. She has a past medical history of H pylori, back pain, C diff, asthma, GERD, bipolar disorder, anxiety, depression, and constipation. She presents to the office today as a new patient for gross hematuria. In discussion with the patient today she reports noting intermittent episodes of gross hematuria over the last few months. When asked she does report a previous history of nicotine dependence. She reports she had been smoking approximately 1 pack of cigarettes per week for 3-5 years. However quit 2 years ago and has since been smoking marijuana daily. She smokes approximately 3-4 blunts/joints a day. She also reports noting episodes of stress incontinence for many years. We did discussed at length potential causes of gross hematuria as well as further treatment options and risks and benefits of these treatment options. I discussed reasons for blood in the urine may include but are not limited to kidney stones, cancer in the urinary tract, kidney stone disease or inflammatory conditions of the urinary tract. I have discussed workup to include cystoscopy evaluation. She otherwise denies urinary urgency, urinary frequency, nocturia, dysuria, foul smelling urine, changes to urinary stream, flank pain, fever, and or chills. In office urinalysis results reviewed with the patient today microscopic hematuria noted. All questions were answered. She otherwise offers no other issues or concerns at this time. COUNTS INCLUDE 234 BEDS AT THE [facility] Medical History H. pylori infection Back pain Left knee pain Encounter for IUD removal and reinsertion IUD check up Diarrhea C. difficile colitis Asthma GERD (gastroesophageal reflux disease) Bipolar disorder Anxiety and depression Constipation Diarrhea Surgical History History of section History of esophagogastroduodenoscopy (EGD) H/O colonoscopy History of tubal ligation Family History Family/Other Cancer Other Family history of arthritis Social History Alcohol intake: never Patient Tobacco Use Status: Former Tobacco user Tobacco use type: Cigarette Substance Use Type: Marijuana Female Reproductive History Menstrual Age of Menarche: 17 Review of Systems Const All systems reviewed & are unremarkable except as noted in HPI and below Reports no additional complaints Eyes Reports no additional complaints ENT Reports no additional complaints Card Reports no additional complaints Resp Reports no additional complaints GI Reports no additional complaints Reports as per HPI Musc Reports no additional complaints Skin/Breast Reports system reviewed and no additional complaints, except as documented Neuro Reports no additional complaints Psych Reports no additional complaints Endo Reports no additional complaints Jose/Lymph Reports no additional complaints Aller/Immun Reports no additional complaints Office Procedures Cystoscopy Consent Discussed risk and benefit or proposed procedure with the patient. Information consent for procedure given to the patient. Discussed technical aspects, risks, benefits and alternatives in full. Addressed all of the patient's questions and concerns regarding the procedure. The patient demonstrated knowledge and understanding. They wish to proceed with this procedure. Preparation The patient was prepped in the usual manner. A rn embedded was present and in the room. Genitalia was prepped with betadine solution in a sterile manner. Lidocaine Jelly 2% was placed into the urethra and 16Fr flexible Olympus cystos cope was inserted into the meatus after adequate lubrication. Procedure Time out per protocol performed. Speculum used as indicated for adequate visualization of urethra, the flexible cystoscope is passed transurethrally: The bladder was inspected in its entirety with utilization retroflexion displaying: Tumor(s): no suspicious bladder lesions visualized Trabeculation: Mucosal Erthema: Orifices: normal shape and position Urethra: normal Cystoscopy findings: WNL, no suspicious bladder lesions visualized [id number] DISPOSABLE SCOPE URO-G FLEXIBLE SCOPE Procedure code (CPT) selection complete Office Meds lidocaine HCl 2 % mucosal jelly in applicator Performing Provider: Shahrzad Flores MD Performing Location: [facility] [place] [facility] Administered by: Beatriz Clements RN on 01/23/25 14:02 Dose Route Admin Location Dispensed Lot Number Expiration Date NDC Lamp Cleaner 20 mL intra-urethral 20 mL ciprofloxacin HCl 500 mg tablet Performing Provider: Shahrzad Flores MD Performing Location: [facility] [place] [facility] Administered by: Beatriz Clements RN on 01/23/25 14:02 Dose Route Admin Location Dispensed Lot Number Expiration Date NDC Lamp Cleaner 500 mg PO 1 tab phenazopyridine 200 mg tablet Performing Provider: Shahrzad Flores MD Performing Location: [facility] [place] [facility] Administered by: Beatriz Clements RN on 01/23/25 14:02 Dose Route Admin Location Dispensed Lot Number Expiration Date NDC Lamp Cleaner 200 mg PO 1 tab Results AMB Urinalysis, Automated UA Leukoctes 0 Celeste/uL Last Edit by Josette Castañeda on 01/23/25 17:29 UA Nitrite Negative Last Edit by Josette Castañeda on 01/23/25 17:29 UA Urobilinogen 0.2 mg/dL Last Edit by Josette Castañeda on 01/23/25 17:29 UA Protein 0 mg/dL Last Edit by Josette Castañeda on 01/23/25 17:29 UA pH 6.0 Last Edit by Josette Castañeda on 01/23/25 17:29 UA Blood 10 Rei/uL Last Edit by Josette Castañeda on 01/23/25 17:29 UA Specific [place] 1.015 Last Edit by Josette Castañeda on 01/23/25 17:29 UA Ketone Negative Last Edit by Josette Castañeda on 01/23/25 17:29 UA Bilirubin 0 mg/dL Last Edit by Josette Castañeda on 01/23/25 17:29 UA Glucose 0 mg/dL Last Edit by Josette Castañeda on 01/23/25 17:29 Results Reviewed Results Reviewed: Laboratory Last Values Urine pH (Auto) 6.0 01/23/25 16:30 Specific [place] (Auto) 1.015 01/23/25 16:30 Urine Protein (Auto) 0 mg/dL 01/23/25 16:30 Glucose (UA)(Auto) 0 mg/dL 01/23/25 16:30 Urine Ketones (Auto) Negative 01/23/25 16:30 Urine Blood (Auto) 10 Rei/uL 01/23/25 16:30 Urine Nitrite (Auto) Negative 01/23/25 16:30 Urine Bilirubin (Auto) 0 mg/dL 01/23/25 16:30 Urine Urobilinogen (Auto) 0.2 mg/dL 01/23/25 16:30 Leukocyte Esterase (Auto) 0 Celeste/uL 01/23/25 16:30 Date of Service: 12/05/24 Reason for Exam: R31.0 - Gross hematuria EXAMINATION: CT ABDOMEN AND PELVIS WITHOUT AND WITH CONTRAST CLINICAL INFORMATION: Gross hematuria. COMPARISON: March 15, 2022. Correlated to ultrasound kidney dated May 16, 2023.. TECHNIQUE: Noncontrast CT of the abdomen and pelvis is performed followed by split bolus contrast-enhanced images using 85 mL Omnipaque 350 contrast. Postcontrast imaging is performed during the combined nephrogram and excretion phase. Sagittal and coronal reformatted images were obtained on the technologist's workstation for both the precontrast and postcontrast phases. This CT examination was performed using dose optimization techniques as appropriate, variously including the following: *Automated exposure control *Adjustment of mA and/or kV according to patient size (this includes techniques or standardized protocols for targeted exams where dose is matched to indication/reason for exam; i.e. extremities or head) *Use of iterative reconstruction technique DLP: 382 mGy centimeter. FINDINGS: LIVER, GALLBLADDER, AND BILIARY TREE: Liver measures 16 cm. No focal mass. Main portal vein and hepatic veins and intrahepatic portion of the IVC are patent. Gallbladder is fluid-filled nondistended. No pericholecystic fluid collection or gallbladder wall thickening. No intrahepatic or extrahepatic biliary ductal dilatation. PANCREAS: No focal mass. No peripancreatic fluid collection. No main pancreatic ductal dilatation. SPLEEN: 9 cm. No focal mass. ADRENAL GLANDS: No nodular lesions. KIDNEYS AND URETERS: No hydronephrosis. No nephrolithiasis. Normal enhancement of the renal parenchyma. Focal cortical defect in the posterior midportion lower pole junction of the right kidney. Normal urinary excretion into the collecting system without gross intraluminal filling defects. BLADDER: Fluid-filled and subsequent enhancement from the urinary excretion. No gross wall thickening. GASTROINTESTINAL TRACT: Abundant stool throughout the large intestine. No intestinal obstruction pattern. No pneumatosis intestinalis. No intestinal wall thickening. No air-fluid levels. I cannot clearly identify the appendix, though no edema pattern in the mesocecum. No ascites. No pneumoperitoneum. No peripheral enhancing fluid collections, peritoneal cavity. ABDOMINAL WALL: No umbilical hernia. LYMPH NODES: No mesenteric or retroperitoneal lymphadenopathy. VASCULAR: No gross calcified plaque. No aneurysm or dissection abdominal aorta. PELVIC VISCERA: T-shaped intrauterine contraceptive device in place. No gross masses. Probable 2.4 cm cyst, left adnexa. OSSEUS STRUCTURES: [Castellvi type III sacralization with pseudoarthrosis from the transverse processes of the labral L5 vertebra. Grade 1 retrolisthesis L4-5. Dextroconvex curvature of the lumbar spine which could be positional. IMPRESSION: No hydronephrosis or nephrolithiasis or gross renal mass. Assessment & Plan Assessment & Plan (1) Gross hematuria: Code(s): R31.0 - Gross hematuria Category: Medical (2) Marijuana dependence: Code(s): F12.20 - Cannabis dependence, uncomplicated Category: Medical (3) Nicotine dependence in remission: Code(s): F17.201 - Nicotine dependence, unspecified, in remission Category: Medical Plan Plan 1. Bladder Spasms 2. Urinary Incontinence - Prescribe Vesicare 10 mg daily to manage urinary incontinence. - Follow-up with nurse practitioner in 3 months to reassess symptoms. Orders: Orders AMB Cystoscopy 01/23/25 R31.0 - Gross hematuria AMB Urinalysis Automated 01/23/25 R31.29 - Other microscopic hematuria Medications: New solifenacin (Vesicare) 10 mg PO DAILY 90 tabs 1RF Patient Instructions: The patient had an opportunity to ask questions regarding treatment plan. The patient expressed understanding and agreement with the above treatment plan. The patient is aware they should contact our office by phone for worsening of their current condition or the appearance of new symptoms. Compliance is encouraged with any medications and followup testing that is ordered. It is a privilege to be allowed the opportunity to participate in the urologic care of your patient. If you have any questions or concerns regarding treatment for the above conditions please do not hesitate to contact me. The office telephone contact is [phone]. This note is constructed in part using voice recognition software. While every effort has been made to ensure accuracy caul puller errors may have been included. Yours sincerely, Shahrzad Flores MD Scribe Plan - Not visible on output: Patient was informed and verbally consented to the use of an ambient scribe for clinic note documentation during this visit. Coding Level of Care Code Est Pt Level 4 (51568) Diagnoses Gross hematuria R31.0 Marijuana dependence F12.20 Nicotine dependence in remission F17.201 CPT Codes Cystoscopy - CPT: 76231-[id number] ([id number])
--- OUTSIDE RECORDS SUMMARY | 2025-01-23 17:02 | XMS_ITS | Encounter Summary ---
Author Organization [employer] Address [address] [place] [address] Care Team Providers Care Rack Pusher Name Role Phone Jessi Dueñas MD Primary Care Provider Reason for Visit * Reason Comments Med Refill Encounter Details Date Type Department Care Team (Late st Contact Info) Description 12/27/2024 Refill [facility] [address] [place] [address] Jessi Dueñas MD [address] [place] [address] Polyarthralgia; Fibromyalgia Social History Tobacco Use Types [...] Care Team (Late st Contact Info) Description 02/04/2025 9:30 AM EST Clinical Support [address] [address] Becky oBnilla RN documented as of this encounter Visit Diagnoses Diagnosis Polyarthralgia Pain in joint, multiple sites Fibromyalgia Unspecified myalgia and myositis documented in this encounter Additional Health Concerns Assessment Noted Time PHQ-9 Depression Total Score: 24 025 9:47 AM EDT documented as of this encounter Care Teams Rack Pusher Relationship Specialty Start Date End Date Jessi Dueñas MD [address] [place] [address] PCP - General Family Medicine 11/24/20 Mikayla Bhagat Disability Liaison OfficerGuide Escort 05/09/23 documented as of this encounter
--- OUTSIDE RECORDS SUMMARY | 2025-01-23 17:02 | XMS_ITS | Encounter Summary ---
Author Organization [employer] Address [address] [facility] [address] [place] [address] Care Team Providers Care Quill Cleaning Machine Operator Name Role Phone Jessi Dueñas MD Primary Care Provider [phone] Reason for Visit * Reason Onset Date Comments Med Refill Tramadol refill denied 10/25/2023 Encounter Details Date Type Department Care Team (Late st Contact Info) Description 10/25/2023 Refill [facility] [address] [place] [address] Jessi Dueñas MD [address] [place], [place] [phone] Fibromyalgia Social History Tobacco Use Types Packs/Day [...] call her, when I get back from [place] and we can review this. Thank you! TC via P/I#[id number], unable to connect to the number, unable to leave message. Will forward message to PCP's M.A. to schedule a telephone appointment for patient as PCP requested. documented in this encounter Plan of Treatment Upcoming Encounters Date Type Department Care Team (Late st Contact Info) Description 02/04/2025 9:30 AM EST Clinical Support [facility] [address] [place] [address] 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, HERNANDEZ documented as of this encounter Visit Diagnoses Diagnosis Fibromyalgia Unspecified myalgia and myositis documented in this encounter Additional Health Concerns Assessment Noted Time PHQ-9 Depression Total Score: 8 06/18/20 24 11:07 AM EDT documented as of this encounter Care Teams Quill Cleaning Machine Operator Relationship Specialty Start Date End Date Jessi Dueñas MD [address] [place] [address] PCP - General Family Medicine 11/24/20 Mikayla Bhagat Machine OverhaulerSenior Corporate Recruiter 05/09/23 documented as of this encounter
--- OUTSIDE RECORDS SUMMARY | 2025-01-23 17:02 | XMS_ITS | Encounter Summary ---
Author Organization [employer] Address [address] [place] [address] Care Team Providers Care Detective Bowling Alley Name Role Phone Jessi Dueñas MD Primary Care Provider [phone] Reason for Visit * Reason Onset Date Comments PT-1 08/05/2024 Encounter Details Date Type Department Care Team (Late st Contact Info) Description 08/05/2024 Telephone [facility] [address] [place] [address] Jessi Dueñas MD [address] [place] [address] PT-1 Social History Tobacco Use Types Packs/Day [...] from pt requesting status of PT-[address] [place] [address] Please return call to pt with updates [phone] documented in this encounter Plan of Treatment Upcoming Encounters Date Type Department Care Team (Late st Contact Info) Description 02/04/2025 9:30 AM EST Clinical Support [facility] [address] [place] [address] 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, RN documented as of this encounter Visit Diagnoses Not on filedocumented in this encounter Additional Health Concerns Assessment Noted Time PHQ-9 Depression Total Score: 24 025 9:47 AM EDT documented as of this encounter Care Teams Detective Bowling Alley Relationship Specialty Start Date End Date Jessi Dueñas MD [address] [place] [address] PCP - General Family Medicine 11/24/20 Mikayla Bhagat [id number] Tank CrewmanTruck Bracer 05/09/23 documented as of this encounter
--- OUTSIDE RECORDS SUMMARY | 2025-01-23 17:02 | XMS_ITS | Encounter Summary ---
Author Organization [employer] Address [address] [place] [address] Care Team Providers Care Protector Plate Attacher Name Role Phone Jessi Dueñas MD Primary Care Provider [phone] Reason for Visit * Reason Onset Date Comments Call Back Request 01/23/2024 Encounter Details Date Type Department Care Team ([facility] st Contact Info) Description 01/23/2024 Telephone [facility] [address] [place] [address] Jessi Dueñas MD [address] [place] [address] Call Back Request Social History Tobacco Use [...] no scripts sent. Please contact pt at [phone]. (Belizean Speaker) documented in this encounter Plan of Treatment Upcoming Encounters Date Type Department Care Team (Late st Contact Info) Description 02/04/2025 9:30 AM EST Clinical Support [facility] [address] [place] [address] 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, HERNANDEZ documented as of this encounter Visit Diagnoses Not on filedocumented in this encounter Additional Health Concerns Assessment Noted Time PHQ-9 Depression Total Score: 8 09/19/19 24 11:07 AM EDT documented as of this encounter Care Teams Protector Plate Attacher Relationship Specialty Start Date End Date Jessi Dueñas MD [address] [place] [address] PCP - General Family Medicine 11/24/20 Mikayla Bhagat Diesel Tractor Engine MechanicAnaesthesiologist 05/09/23 documented as of this encounter
--- OUTSIDE RECORDS SUMMARY | 2025-01-23 17:02 | XMS_ITS | Encounter Summary ---
Author Organization [employer] Address [address] [place] [address] Care Team Providers Care Wharfmaster Name Role Phone Jessi Dueñas MD Primary Care Provider [phone] Encounter Details Date Type Department Care Team (Late st Contact Info) Description 01/11/2023 Orders Only [facility] [address] [place] [address] Jessi Dueñas MD [address] [place] [address] Chronic pain of both knees (Primary Dx) [...] Description 02/04/2025 9:30 AM EST Clinical Support [facility] [address] [place] [address] 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, RN documented as of this encounter Visit Diagnoses Diagnosis Chronic pain of both knees- Primary documented in this encounter Additional Health Concerns Assessment Noted Time PHQ-9 Depression Total Score: 20 023 9:49 AM EDT documented as of this encounter Care Teams Wharfmaster Relationship Specialty Start Date End Date Jessi Dueñas MD [address] [place] [address] PCP - General Family Medicine 11/24/20 Mikayla Bhagat Public Space AttendantPairer Substandard 05/09/23 documented as of this encounter
--- OUTSIDE RECORDS SUMMARY | 2025-01-23 17:02 | XMS_ITS | Encounter Summary ---
Author Organization [employer] Address [address] [place] [address] Care Team Providers Care Maintenance Of Way Clerk Name Role Phone Jessi Dueñas MD Primary Care Provider [phone] Encounter Details Date Type Department Care Team ([facility] st Contact Info) Description 09/22/2023 Orders Only [facility] [address] [place] [address] Jessi Dueñas MD [address] [place] [address] Social History Tobacco Use Types Packs/Day Years [...] Clinical Support [facility] [address] [place] [address] 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, RN documented as of this encounter Visit Diagnoses Not on filedocumented in this encounter Additional Health Concerns Assessment Noted Time PHQ-9 Depression Total Score: 8 09/19/19 24 11:07 AM EDT documented as of this encounter Care Teams Maintenance Of Way Clerk Relationship Specialty Start Date End Date Jessi Dueñas MD [address] [place] [address] PCP - General Family Medicine 11/24/20 Mikayla Bhagat Shredded Filler Cutter OperatorBusiness Analysis Consultant 05/09/23 documented as of this encounter
--- OUTSIDE RECORDS SUMMARY | 2025-01-23 17:02 | XMS_ITS | Encounter Summary ---
Author Organization [employer] Address [address] [facility] 7t [place] [address] Care Team Providers Care Rugby Union Footballer Name Role Phone Jessi Dueñas MD Primary Care Provider [phone] Reason for Visit * Reason Onset Date Comments Results 05/23/2023 Encounter Details Date Type Department Care Team ([facility] st Contact Info) Description 05/23/2023 Telephone [facility] [address] [place] [address] Jessi Dueñas MD [address] [place] [address] Results Social History Tobacco Use Types Packs/Day [...] T/C to pt. For below message through [facility] id - [id number], pt. Informed regarding normal x-ray result. pt. [...] case of any new or worsening symptoms. [facility] hours are reviewed. Pt. Verbally agreed and understood. * Telephone Encounter - Paco Sylvester - 05/24/2023 3:59 PM EST Tc from pt returning call. Please contact at [phone] * Telephone Encounter - Yumiko Whitaker RN - 05/24/2023 12:47 PM EST Return T/C to pt. For bellow message Normal x-ray result. No answer. LVM to call back on [phone]. * Telephone Encounter - Bran Parker - 05/23/2023 4:41 PM EST TC from pt requesting call back regarding Results. Type of results: X-Ray Date when done: 05/16/23 Facility: [facility] documented in this encounter Plan of Treatment Upcoming Encounters Date Type Department Care Team (Late st Contact Info) Description 02/04/2025 9:30 AM EST Clinical Support [facility] [address] [place] [id number] 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, HERNANDEZ documented as of this encounter Visit Diagnoses Not on filedocumented in this encounter Additional Health Concerns Assessment Noted Time PHQ-9 Depression Total Score: 20 023 9:49 AM EDT documented as of this encounter Care Teams Rugby Union Footballer Relationship Specialty Start Date End Date Jessi Dueñas MD [address] [place] [address] PCP - General Family Medicine 11/24/20 Mikayla Bhagat Telephone InterviewerExploration Geologist 05/09/23 documented as of this encounter
--- OUTSIDE RECORDS SUMMARY | 2025-01-23 17:02 | XMS_ITS | Encounter Summary ---
Author Organization [employer] Address [address] [facility] 7t [place] [address] Care Team Providers Care Cosmetic Chemist Name Role Phone Jessi Dueñas MD Primary Care Provider [phone] Encounter Details Date Type Department Care Team (Late Contact Info) Description 03/29/2022 Orders Only [facility] [address] [place] [phone] Jessi Dueñas MD [address] [place] [phone] Choking episode occurring at night (Primary Dx) [...] Department Care Team (Late Contact Info) Description 02/04/2025 9:30 AM EST Clinical Support [facility] [address] [place] [address] 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, RN documented as of this encounter Visit Diagnoses Diagnosis Choking episode occurring at night- Primary documented in this encounter Care Teams Cosmetic Chemist Relationship Specialty Start Date End Date Jessi Dueñas MD [address] [facility] [place] [address] PCP - General Family Medicine 11/24/20 Mikayla Bhagat Paper CoaterPaper Coater 05/09/23 documented as of this encounter
--- OUTSIDE RECORDS SUMMARY | 2025-01-23 17:02 | XMS_ITS | Encounter Summary ---
Author Organization [employer] Address [address] [facility] [address] [place] [address] Care Team Providers Care Cloud Automation Tester Name Role Phone Jessi Dueñas MD Primary Care Provider [phone] Reason for Visit * Reason Comments Med Refill Encounter Details Date Type Department Care Team (Late st Contact Info) Description 09/10/2024 Refill [facility]INE [address] [place] [address] Jessi Dueñas MD [address] [place] [address] Fibromyalgia Social History Tobacco Use Types Packs/Day [...] Description 02/04/2025 9:30 AM EST Clinical Support [address] [address] 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 RN documented as of this encounter Visit Diagnoses Diagnosis Fibromyalgia Unspecified myalgia and myositis documented in this encounter Additional Health Concerns Assessment Noted Time PHQ-9 Depression Total Score: 24 025 9:47 AM EDT documented as of this encounter Care Teams Cloud Automation Tester Relationship Specialty Start Date End Date Jessi Dueñas MD [address] [place] [address] PCP - General Family Medicine 11/24/20 Mikayla Bhagat Airplane Flight AttendantPersonal Injury Attorney 05/09/23 documented as of this encounter
--- OUTSIDE RECORDS SUMMARY | 2025-01-23 17:02 | XMS_ITS | Encounter Summary ---
Author Organization [employer] Address [address] [facility] 7t [place] [address] Care Team Providers Care Felt Hanger Name Role Phone Jessi Dueñas MD Primary Care Provider [phone] Reason for Referral * Consultation (Routine) - Closed Specialty Diagnoses / Procedures Referred By Contac t Referred To Contact Physical Therapy Diagnoses Acute bilateral low back pain without sciatica Chronic pain of both knees Bilateral hand pain Jessi Dueñas MD [address] [place] [address] Phone: tel: fax: [facility] [address] Phone: tel: fax: Referral ID Status Reason Start Date Expiration Date V isits Requested Visits Authorized [id number] Closed Specialty Services Required 04/17/2024 04/17/2025 20 20 Encounter Details Date Type Department Care Team (Late st Contact Info) Description 04/17/2024 Orders Only [facility] MED[facility]INE [address] [place] [phone] Jessi Dueñas MD [address] [place] [address] Acute bilateral low back pain without sciatica [...] Description 02/04/2025 9:30 AM EST Clinical Support [facility] [address] [place] [address] 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, RN Scheduled Referrals Name Type [...] documented as of this encounter Care Teams Felt Hanger Relationship Specialty Start Date End Date Jessi Dueñas MD [address] [place] [address] PCP - General Family Medicine 11/24/20 Mikayla Bhagat Eyeglass Lens CutterCasting Tester 05/09/23 documented as of this encounter
--- OUTSIDE RECORDS SUMMARY | 2025-01-23 17:02 | XMS_ITS | Encounter Summary ---
Author Organization [employer] Address [address] [facility] [address] 7[address] [place] [address] Care Team Providers Care Pension Manager Name Role Phone Jessi Dueñas MD Primary Care Provider Encounter Details Date Type Department Care Team (Late st Contact Info) Description 06/14/2024 Orders Only [facility] [address] [place] [address] Jessi Dueñas MD [address] [place] [address] Restless leg syndrome Social History Tobacco Use [...] Description 02/04/2025 9:30 AM EST Clinical Support [facility] [address] [place] [address] 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, RN documented as of this encounter Visit Diagnoses Diagnosis Restless leg syndrome Restless legs syndrome (RLS) documented in this encounter Additional Health Concerns Assessment Noted Time PHQ-9 Depression Total Score: 8 09/19/19 24 11:07 AM EDT documented as of this encounter Care Teams Pension Manager Relationship Specialty Start Date End Date Jessi Dueñas MD [address] [place] [address] PCP - General Family Medicine 11/24/20 Mikayla Bhagat Ship PurserMorning Show Producer 05/09/23 documented as of this encounter
--- OUTSIDE RECORDS SUMMARY | 2025-01-23 17:02 | XMS_ITS | Encounter Summary ---
Author Organization [employer] Address [address] [facility] 7t [place] [address] Care Team Providers Care Histology Aide Name Role Phone Jessi Dueñas MD Primary Care Provider [phone] Reason for Visit * Reason Comments Med Refill Encounter Details Date Type Department Care Team ([facility] st Contact Info) Description 11/23/2023 Refill [facility] [address] [place] [address] Jessi Dueñas MD [address] [place] [address] Social History Tobacco Use Types Packs/Day Years [...] Description 02/04/2025 9:30 AM EST Clinical Support [facility] [address] [place] [address] 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, RN documented as of this encounter Visit Diagnoses Not on filedocumented in this encounter Additional Health Concerns Assessment Noted Time PHQ-9 Depression Total Score: 8 09/19/19 24 11:07 AM EDT documented as of this encounter Care Teams Histology Aide Relationship Specialty Start Date End Date Jessi Dueñas MD [address] [place] [address] PCP - General Family Medicine 11/24/20 Mikayla Bhagat Tire Design EngineerInbound Call Center Representative 05/09/23 documented as of this encounter
--- OUTSIDE RECORDS SUMMARY | 2025-01-23 17:02 | XMS_ITS | Encounter Summary ---
Author Organization [employer] Address [address] [facility] 7t [place] [address] Care Team Providers Care Digital Coordinator Name Role Phone Jessi Dueñas MD Primary Care Provider [phone] Reason for Visit * Reason Onset Date Comments Nurse Triage 02/07/2023 Encounter Details Date Type Department Care Team ([facility] st Contact Info) Description 02/07/2023 Telephone [facility] MEDICINE [address] [place] [address] Jessi Dueñas MD [address] [place] [address] Nurse Triage Social History Tobacco Use Types [...] 02/07/2023 11:26 AM EST Triage call with farmhopping Vp Product Marketing ID [id number] Pt reports ED visit @ [facility] [place]23 for abdominal pain and migraines. Report is requested from [facility] clinical career placement services counselor. Pt reports was supposed to be getting [...] on 02/06 and did nothing. Patient speaks kuwaiti documented in this encounter Plan of Treatment Upcoming Encounters Date Type Department Care Team (Late st Contact Info) Description 02/04/2025 9:30 AM EST Clinical Support [facility] MEDICINE [address] [place] [address] 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 RN documented as of this encounter Visit Diagnoses Not on filedocumented in this encounter Additional Health Concerns Assessment Noted Time PHQ-9 Depression Total Score: 20 023 9:49 AM EDT documented as of this encounter Care Teams Digital Coordinator Relationship Specialty Start Date End Date Jessi Dueñas MD [address] [place] [address] PCP - General Family Medicine 11/24/20 Mikayla Bhagat Antisqueak ChalkerElevator Constructor Supervisor 05/09/23 documented as of this encounter
--- OUTSIDE RECORDS SUMMARY | 2025-01-23 17:02 | XMS_ITS | Clinical Summary ---
Author Organization [employer] Address [address] [facility] [address] [place] [address] Care Team Providers Care Shredded Filler Cutter Operator Name Role Phone Jessi Dueñas MD Primary Care Provider [phone] Allergies Active Allergy Reactions Criticality Noted Date Comments Cat Dander 08/21/2023 Morphine Anxiety Low 03/24/2022 Shrimp Flavor Agent (Non-Screening) 08/21/2023 Medications * This document contains information received from the source organization and may not represent a complete record from that organization. Levonorgestrel (Mirena, 52 MG,) 20 MCG/DAY intrauterine device Active pantoprazole (ProtoNix) 40 MG EC tablet Take 40 mg by mouth in the morning and at bedtime. 022 Active QUEtiapine (SEROquel) 300 MG tablet Take 300 mg by mouth at bedtime. 022 Active diphenhydrAMINE (Dahlia-Dryl) 25 MG tabletIndications :Allergic [...] naloxone (Narcan) 4 mg/0.1 mL nasal sprayIndications: jail current use of 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 Administer 1 spray (4 mg) into affected nostril(s) if needed for opioid reversal. May repeat every 2-3 minutes if needed, alternating nostrils, until medical assistance becomes available. 2 each 3 025 2025 Active Asmanex HFA 200 MCG/ACT aerosol INHALE 1 PUFF BY MOUTH TWICE DAILY, RINSE MOUTH AFTER USING. 13 g 1 025 Active cholecalciferol VITAMIN D (Vitamin D-3) 50 MCG (1999 UT) tablet TAKE 1 TABLET BY MOUTH EVERY MORNING 90 tablet 3 025 Active montelukast (Singulair) 10 MG tablet TAKE 1 TABLET BY MOUTH EVERY EVENING FOR ASTHMA 90 tablet 3 025 Active traMADol (Ultram) 50 MG tabletIndications :Polyarthralgia,F ibromyalgia Take 1 tablet (50 mg) by mouth every 12 (twelve) hours if needed for severe pain for up to 28 days. 56 tablet 025 2024 Active nortriptyline (Pamelor) 10 MG capsule TAKE 1 CAPSULE BY MOUTH AT BEDTIME, INCREASE TO 2 CAPSULES AT BEDTIME AFTER 2 WEEKS 025 Active sertraline (Zoloft) 50 MG tablet TAKE 1 AND 1/2 TABLETS BY MOUTH EVERY EVENING 025 Active clonazePAM (KlonoPIN) 0.5 MG tablet TAKE 1 AND 1/2 TABLETS BY MOUTH TWICE DAILY NEEDED 025 Active diphenhydrAMINE (BENADryl) 25 MG capsule TAKE 1 TO 2 CAPSULES BY MOUTH AT BEDTIME NEEDED FOR SLEEP 025 Active FLUoxetine (PROzac) 20 MG capsule TAKE 3 CAPSULES BY MOUTH EVERY DAY IN THE MORNING 025 Active clonazePAM (KlonoPIN) 1 MG tablet TAKE 1 TABLET BY MOUTH TWICE DAILY IN THE MORNING AND IN THE EVENING (MAY TAKE ADDITIONAL TABLET NEEDED) 022 2024 Discontinued(T herapy completed) QUEtiapine (SEROquel) 100 MG tablet TAKE 1/2 TABLET BY MOUTH TWICE DAILY NEEDED 023 2024 Discontinued(T herapy completed) traMADol (Ultram) 50 MG tabletIndications :Polyarthralgia,F ibromyalgia Take 1 tablet (50 mg) by mouth every 12 (twelve) hours if needed for severe pain for up to 28 days. Do not start before November 28, 2024. 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 2024 Overview (01/14/2025): Dx: Fibromyalgia Rx: Tramadol 50mg every 12 hours Last MICRO COMPUTER SPECIALIST agreement: Tier II (visit every 3 months) [...] & Plan (12/08/2023 9:32 AM EDT): From drink box mechanic last apt 09/2023 Labs showed low [...] & Plan (10/06/2023 12:39 PM EDT): From drink box mechanic last apt 09/2023 Labs showed low [...] & Plan (09/19/2023 6:11 PM EDT): From drink box mechanic last apt 09/2023 Labs showed low [...] -refrred today to sleep med -tylenol prn Need for home health care 05/17/2023 Assessment & Plan (05/19/2023 10:34 AM EST): She has already asked an agency to do BALL SORTER evaluation To go to medical records and [...] see if patient needs any specific supplementation Acute left ankle pain 10/27/2022 Assessment & [...] Problem Noted Date Diagnosed Date Resolved Date Health care maintenance 09/19/202301/01 Assessment & Plan (09/19/2023 6:10 PM EDT): [...] for 10/04/2023 Diarrhea of presumed infectious origin 07/07/2023 01/14/2025 Assessment & Plan (07/07/2023 8:34 AM EDT): Will check again for C diff Probiotics Small regular meals Whole body pain 01/04/2023 01/14/2025 Assessment & Plan (07/30/2024 10:18 AM EDT): [...] after two episodes of C diff Acute bilateral low back jian n without sciatica 10/27/2022 10/31/2024 Assessment & Plan (10/27/2022 10:44 AM EDT): I also discontinue today flexeril and switch to baclofen (short curse) patient is aware of side effects, somnolence, 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 Hematoma of left [...] Encounters Date Type Department Care Team Description 01/17/[address] [phone] Jessi Dueñas MD Durable Medical Equipment (DME: Bilateral Velcro Knee Braces) 01/16/[address] [address] Jessi Dueñas MD telephone call; Durable Medical Equipment (Brace.) 01/13/2025 1:30 PM EDT Office Visit [address] [address] Jessi Dueñas MD Fibromyalgia (Primary Dx); Irritable bowel syndrome with diarrhea; Severe depression (CMS/HCC) (HCC); jail current use of 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; Anxiety; Bipolar disorder, current episode mixed, moderate (CMS/HCC) (HCC) 01/13/2025 Travel 01/10/[address] [address] Jessi Dueñas MD Chart Prep 01/03/2025 Patient Outreach [address] [place] [address] Jessi Dueñas MD Pre-visit Planning (SDOH screening completed on 05/27/2024) 12/27/2024 Refill [facility] [address] [place] [phone] Jessi Dueñas MD Polyarthralgia; Fibromyalgia 12/27/2024 Telephone [facility] [address] [place] [phone] Jessi Dueñas MD FYI 12/27/2024 Refill [facility] [address] [place] [phone] Jessi Dueñas MD Polyarthralgia; Fibromyalgia 12/19/2024 Telephone [facility] [address] [place] [phone] Jessi Dueñas MD Durable Medical Equipment 12/05/2024 Orders Only [facility] External Provider, [facility] 12/04/2024 Refill [facility] [address] [place] [phone] Jessi Dueñas MD 12/03/[address] [address] Jessi Dueñas MD telephone call; Durable Medical Equipment (DME Order ) 11/27/2024 Refill [facility] [address] [place] [phone] Jessi Dueñas MD Polyarthralgia; Fibromyalgia 11/14/2024 Refill [facility] [address] [place] [phone] Anita Kearns MD 11/07/2024 1:00 PM EDT Clinical Support [facility] [address] [place] [phone] 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, RN jail current use of 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 (Primary Dx) 11/07/2024 Refill [facility] [address] [place] [phone] 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, RN jail current use of 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 (Primary Dx) 11/07/2024 Travel 11/04/2024 Telephone [facility] [address] [place] [phone] Jessi Dueñas MD Durable Medical Equipment (DME Request: Cane and Shower Bench) 11/04/[address] [phone] Jessi Dueñas MD Medication Question 10/30/2024 3:00 PM EDT Office Visit [address] [address] Jessi Dueñas MD Polyarthralgia (Primary Dx); Dietary counseling; Exercise counseling; Underweight; Whole body pain; Fibromyalgia; 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; Severe depression (CMS/HCC); Chronic pain of both knees; Chronic bilateral low back pain, unspecified whether sciatica present; Pain in both hands 10/30/2024 Travel 10/29/[address] [phone] Jessi Dueñas MD Chart Prep 10/25/[address] [address] Jessi Dueñas MD PT referral from Last 3 Months Immunizations Immunization Administration [...] Score 24 07/30/2024 Patient Health Questionnaire-9 Score 07/30/2024 Last [...] the past 12 months, has t he Signal, gas, oil or water company threatened to [...] Sign Reading Time Taken Comments Blood Pressure 118/62 01/13/2025 1:30 PM EDT Pulse 60 01/13/2025 1:30 PM EDT Temperature 36.8 C (98.2 F) 01/13/2025 1:30 PM EDT Respiratory Rate 21 01/13/2025 1:30 PM EDT Oxygen Saturation 100% 07/30/2024 8:54 AM EDT Inhaled Oxygen Concentration - - Weight 55.4 kg (122 lb 3.2 oz) 01/13/2025 1:30 P M EDT Height 170.2 cm (5' 7 ) 01/13/2025 1:30 PM EDT Body Mass Index 19.14 01/13/2025 1:30 PM EDT Plan of Treatment Upcoming Encounters Date Type Department Care Team (Late st Contact Info) Description 02/04/2025 9:30 AM EST Clinical Support [address] [address] 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, RN Health Maintenance Due Date [...] 07/30/2024 Disability Screening 10/30/2025 10/30/2024 Tobacco Screening 01/13/2026 01/13/2025 Cervical Cancer Screening 02/22/2026 HPV/Cotest 02/22/2026 02/22/2021, [...] Procedure Name Priority Date/Time Associated Diagnosis Comments CT UROGRAM WO CONTRAST Routine 9:13 AM EDT CREATININE, SERUM Routine 12/05/2024 8:5 0 AM EDT UREA NITROGEN (BUN) Routine 12/05/2024 8 :50 AM EDT POCT JIMMY-14 URINE DRUG SCREEN Routine 11/07/2024 1:02 PM EDT jail current use of 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 BI MAMMOGRAM SCREENING TOMOSYNTHESIS BILATERAL Routine 09/30/2024 10:50 AM EDT BITEWING - SINGLE RADIOGRAPHIC IMAGE [...] Recently Relevant to Health Maintenance Results * CT Urogram w/o Contrast (12/05/2024 9:13 AM EDT) Anatomical Region Laterality Modality Ureter, Upper urinary tract Comp uted Tomography 12/05/2024 9:13 AM EDT Narrative 12/05/2024 10:02 AM EDT [address] [address] [address] Scan Report Signed Patient: Kera Armstrong MR#: [id number] : 1980 Acct:[id number] Age/Sex: 44 / F ADM Date: 12/05/24 Loc: HO.CT Attending Dr: Marlena Garrison [facility] Ordering Physician: Marlena Garirson Date of Service: 12/05/24 Procedure(s): CT urogram Accession Number(s): [id number] cc: Jessi Dueñas; Marlena Garrison [facility] Report Number: [id number]: Total DLP = 382.00 mGy-cm Reason for Exam: R31.0 - Gross hematuria EXAMINATION: CT ABDOMEN AND PELVIS WITHOUT AND WITH CONTRAST CLINICAL INFORMATION: Gross hematuria. COMPARISON: March 15, 2022. Correlated to ultrasound kidney dated May 16, 2023.. TECHNIQUE: Noncontrast CT of the abdomen and pelvis is performed followed by split bolus contrast-enhanced images using 85 mL Omnipaque 350 contrast. Postcontrast imaging is performed during the combined nephrogram and excretion phase. Sagittal and coronal reformatted images were obtained on the technologist's workstation for both the precontrast and postcontrast phases. This CT examination was performed using dose optimization techniques as appropriate, variously including the following: *Automated exposure control *Adjustment of mA and/or kV according to patient size (this includes techniques or standardized protocols for targeted exams where dose is matched to indication/reason for exam; i.e. extremities or head) *Use of iterative reconstruction technique DLP: 382 mGy centimeter. FINDINGS: LIVER, GALLBLADDER, AND BILIARY TREE: Liver measures 16 cm. No focal mass. Main portal vein and hepatic veins and intrahepatic portion of the IVC are patent. Gallbladder is fluid-filled nondistended. No pericholecystic fluid collection or gallbladder wall thickening. No intrahepatic or extrahepatic biliary ductal dilatation. PANCREAS: No focal mass. No peripancreatic fluid collection. No main pancreatic ductal dilatation. SPLEEN: 9 cm. No focal mass. ADRENAL GLANDS: No nodular lesions. KIDNEYS AND URETERS: No hydronephrosis. No nephrolithiasis. Normal enhancement of the renal parenchyma. Focal cortical defect in the posterior midportion lower pole junction of the right kidney. Normal urinary excretion into the collecting system without gross intraluminal filling defects. BLADDER: Fluid-filled and subsequent enhancement from the urinary excretion. No gross wall thickening. GASTROINTESTINAL TRACT: Abundant stool throughout the large intestine. No intestinal obstruction pattern. No pneumatosis intestinalis. No intestinal wall thickening. No air-fluid levels. I cannot clearly identify the appendix, though no edema pattern in the mesocecum. No ascites. No pneumoperitoneum. No peripheral enhancing fluid collections, peritoneal cavity. ABDOMINAL WALL: No umbilical hernia. LYMPH NODES: No mesenteric or retroperitoneal lymphadenopathy. VASCULAR: No gross calcified plaque. No aneurysm or dissection abdominal aorta. PELVIC VISCERA: T-shaped intrauterine contraceptive device in place. No gross masses. Probable 2.4 cm cyst, left adnexa. OSSEUS STRUCTURES: [Castellvi type III sacralization with pseudoarthrosis from the transverse processes of the labral L5 vertebra. Grade 1 retrolisthesis L4-5. Dextroconvex curvature of the lumbar spine which could be positional. CT/CT urogram IMPRESSION: No hydronephrosis or nephrolithiasis or gross renal mass. Electronically signed by: Frederic Link MD 12/05/2024 09:59 AM EDT RP Dictated By: Frederic Hunt MD Signed By: <Electronically signed by Frederic Haney MD in OV> 12/05/2459 DD/ 2 TD/TT: 12/05/24941 Metal Bonding Crib Attendant: Procedure Note Donotuseinterpreter, Image - 12/05/[address] [place] [address] [address] Scan Report Signed Patient: Kera ArmstrongMR#: [id number] : 1980Acct:[id number] Age/Sex: 44 / FADM Date: 12/05/24 Loc: HO.CT Attending Dr: Marlena AZEVEDO Ordering Physician: Marlena Garrison Date of Service: 12/05/24 Procedure(s): CT urogram Accession Number(s): [id number] cc: Demi Dueñas Amie FNP-BC Report Number: [id number]: Total DLP = 382.00 mGy-cm Reason for Exam: R31.0 - Gross hematuria EXAMINATION: CT ABDOMEN AND PELVIS WITHOUT AND WITH CONTRAST CLINICAL INFORMATION: Gross hematuria. COMPARISON: March 15, 2022. Correlated to ultrasound kidney dated May 16, 2023.. TECHNIQUE: Noncontrast CT of the abdomen and pelvis is performed followed by split bolus contrast-enhanced images using 85 mL Omnipaque 350 contrast. Postcontrast imaging is performed during the combined nephrogram and excretion phase. Sagittal and coronal reformatted images were obtained on the technologist's workstation for both the precontrast and postcontrast phases. This CT examination was performed using dose optimization techniques as appropriate, variously including the following: *Automated exposure control *Adjustment of mA and/or kV according to patient size (this includes techniques or standardized protocols for targeted exams where dose is matched to indication/reason for exam; i.e. extremities or head) *Use of iterative reconstruction technique DLP: 382 mGy centimeter. FINDINGS: LIVER, GALLBLADDER, AND BILIARY TREE: Liver measures 16 cm. No focal mass. Main portal vein and hepatic veins and intrahepatic portion of the IVC are patent. Gallbladder is fluid-filled nondistended. No pericholecystic fluid collection or gallbladder wall thickening. No intrahepatic or extrahepatic biliary ductal dilatation. PANCREAS: No focal mass. No peripancreatic fluid collection. No main pancreatic ductal dilatation. SPLEEN: 9 cm. No focal mass. ADRENAL GLANDS: No nodular lesions. KIDNEYS AND URETERS: No hydronephrosis. No nephrolithiasis. Normal enhancement of the renal parenchyma. Focal cortical defect in the posterior midportion lower pole junction of the right kidney. Normal urinary excretion into the collecting system without gross intraluminal filling defects. BLADDER: Fluid-filled and subsequent enhancement from the urinary excretion. No gross wall thickening. GASTROINTESTINAL TRACT: Abundant stool throughout the large intestine. No intestinal obstruction pattern. No pneumatosis intestinalis. No intestinal wall thickening. No air-fluid levels. I cannot clearly identify the appendix, though no edema pattern in the mesocecum. No ascites. No pneumoperitoneum. No peripheral enhancing fluid collections, peritoneal cavity. ABDOMINAL WALL: No umbilical hernia. LYMPH NODES: No mesenteric or retroperitoneal lymphadenopathy. VASCULAR: No gross calcified plaque. No aneurysm or dissection abdominal aorta. PELVIC VISCERA: T-shaped intrauterine contraceptive device in place. No gross masses. Probable 2.4 cm cyst, left adnexa. OSSEUS STRUCTURES: [Castellvi type III sacralization with pseudoarthrosis from the transverse processes of the labral L5 vertebra. Grade 1 retrolisthesis L4-5. Dextroconvex curvature of the lumbar spine which could be positional. CT/CT urogram IMPRESSION: No hydronephrosis or nephrolithiasis or gross renal mass. Electronically signed by: Frederic Link MD 12/05/2024 09:59 AM EDT RP Dictated By: Frederic Hunt MD Signed By: <Electronically signed by Frederic Haney MDin OV> 12/05/2459 DD/ 2 TD/TT: 12/05/24941 Metal Bonding Crib Attendant: [facility] External Provider IMG CT PROCEDURES Final Result * Creatinine, Serum (12/05/2024 8:50 AM EDT) Creatinine, Serum 0.86 0.5 - 1.4 mg/dL [facility] Estimated Glomerular Filt Rate >60 [facility] Comment:Chronic Kidney Disea se: Estimated GFR < 60 mL/min/1.29j3Yoborj Kidney Disease: Estimated GFR < 15 mL/min/1.73m2 12/05/2024 8:50 AM EDT 12/05/2024 8:50 AM EDT Generic External Data Provider LAB BLOOD ORDERAB LES Final Result Performing Organization Address [facility]/ZIP Co de Phone Number [facility] [address] [place] [phone] * BUN (Blood Urea Nitrogen) (12/05/2024 8:50 AM EDT) Urea Nitrogen (BUN) 15 9 - 16 mg/dL [facility] 12/05/2024 8:50 AM EDT 12/05/2024 8:50 AM EDT Generic External Data Provider LAB BLOOD ORDERAB LES Final Result Performing Organization Address City/[facility]/ZIP Co de Phone Number [facility] [address] [place] [phone] * POCT JIMMY-14 Urine Drug Screen (11/07/2024 [...] Unknown 11/07/2024 1:02 PM EDT Narrative 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, RN - 11/07/2024 1:02 PM EDT UTOX cup Lot#[id number] Exp. 01/07/26 Internal Pass Control Jessi Dueñas MD POINT OF CARE TEST ENTER/EDIT ORDERABLES Final Result * BI Mammogram Screening Tomosynthesis Bilateral (09/30/2024 10:50 AM EDT) Anatomical Region Laterality Modality Breast Bilateral Mammography 09/30/2024 10:5 0 AM EDT Narrative 10/13/2024 1:37 PM EDT [address] [place] [address] Mammography Report Signed Patient: Kera Armstrong MR#: [id number] : 1980 Acct:[id number] Age/Sex: 43 / F ADM Date: 09/30/24 Loc: PINA Attending Dr: Harjit Parada MD Ordering Physician: Harjit Parada MD Results: 1Negativ e Date of Service: 09/30/24 Follow Up: 1 Year From Orig inal Mammogram Procedure(s): MM tomosynthesis screening BI Accession Number(s): [id number] cc: Jessi Dueñas; Harjit Parada MD EXAMINATION: [...] Christin Boston DO 10/13/2024 01:34 PM EDT RP Dictated By: Christin Boston DO Signed By: <Electronically signed by Christin Boston DO in OV> 10/13/24 1334 DD/ 1050 TD/TT: 09/30/24 1154 Metal Bonding Crib Attendant: Procedure Note Donotuseinterpreter, Image - 10/13/2024 [facility] [address] [place], [place] [address] Mammography Report Signed Patient: Kera ArmstrongMR#: [id number] : 1980Acct:[id number] Age/Sex: 43 / FADM Date: 09/30/24 Loc: HO.MAMMO Attending Dr: Harjit Parada MD Ordering Physician: Harjit Parada MDResults: 1Negativ e Date of Service: 09/30/24Follow Up: 1 Year From Orig inal Mammogram Procedure(s): MM tomosynthesis screening BI Accession Number(s): [id number] cc: Jessi Dueñas; Harijt Parada MD EXAMINATION: MM SCREENING DIGITAL BREAST [...] Christin Boston DO 10/13/2024 01:34 PM EDT RP Dictated By: Christin Boston DO Signed By: <Electronically signed by Christin Boston DO in OV> 10/13/24 1334 DD/ 1050 TD/TT: 09/30/24 1154 Metal Bonding Crib Attendant: [facility] External Provider IMG BI PROCEDURES Final Result * Hepatitis Panel, General (05/17/2024 9:40 AM EST) Hepatitis A IgM Nonreactive Nonreactive [facility] Comment:IgM antibodies to AMAYA V not detected; does not exclude earlyacute or recovered HAV infection. ~Hepatitis B Surface Antibody REACTIVE Nonreactive [facility] Comment:REACTIVE: > 11.99 mI U/mL Hepatitis B Core Antibody Nonreactive Nonreactive [facility] Hepatitis C Antibody Nonreactive Nonreactive [facility] Comment:Antibodies to HCV no t detected; does not exclude early acuteHCV infection. Hepatitis B Surface Ag Negative Negative [facility] 05/17/2024 9:40 AM EST 05/17/2024 9:40 AM EST Generic External Data Provider LAB BLOOD ORDERAB LES Final Result [facility] [address] [place] [address] [place] [phone] * HIV-1/2 Antigen and Antibodies, Fourth Generation, with Reflexes (05/17/2024 9:40 AM EST) HIV AB/AG Nonreactive Nonreactive [facility] Comment:HIV-1 p24 Ag and/or HIV-1/HIV-2 Ab not detected.A test result that is nonreactive does not exclude thepossibility of exposure to or infection with HIV-1 and/orHIV-2. Nonreactive results in this assay for individualswith prior exposure to HIV-1 and/or HIV-2 may be due toantigen and antibody levels that are below the limit ofdetection of this assay.The INTERNET BUSINESS TRADER HIV Ag/Ab Combo assay result andsupplemental assay results should be interpreted inconjunction with the patient's clinical presentation,history and other laboratory results. If the results areinconsistent with clinical evidence, additional testing issuggested to confirm the result. 05/17/2024 9:40 AM EST 05/17/2024 9:40 AM EST us Generic External Data Provider LAB BLOOD ORDERAB LES Final Result [facility] [address] [place] [phone] * THINPREP TIS PAP (02/22/2021 12:00 AM EST) Pathologist [facility] Clinical Information: None given [facility] COMMENT SEE COMMENT [facility] ON [...] was manually screened according to routine procedures. Nursing Home Social Worker : SEE COMMENT [facility] Comment: KN, CT(ASCP) CT screening location: [address] [address] Interpretation/R esult: Negative for intraepithelial lesion or [...] PATHOLOGY ORDERABLES Final Result Performing Organization Address [facility] Co de Phone Number [facility] [address] * HPV mRNA E6/E7 REFLEX TO HPV 16, 18/45 (02/22/2021 12:00 AM EST) HPV nRNA E6/E7 Not Detected Not Detected [facility] Comment: Methodology: Deadener-Mediated Amplification This assay detects E6/E7 viral messenger RNA (mRNA) from 14 high-risk HPV types (16,18,31,33,35,39,45,51,52,56,58,59,66,68). The analytical performance characteristics of this assay have been determined by [employer]. The modifications have not been cleared or approved by the FDA. This assay has been validated pursuant to the CLIA regulations and is used for clinical purposes. For additional information, please refer to http://education.RESAAS.Quora/faq/AEY015k4 (This link if provided for information/ educational purposes only.) 02/22/2021 Jessi Dueñas MD LAB CYTOLOGY ORDERABLES Final Result Performing Organization Address [facility] Co de Phone Number [facility] [address] from Last 3 Months or Most Recently Relevant to Health Maintenance Insurance [address] [place] [address] [facility] C3 HSN PARTIAL DENTAL-[facility] MEDICAID STAND ADULT Care Teams Shredded Filler Cutter Operator Relationship Specialty Start Date End Date Jessi Dueñas MD [address] [facility] [place] [address] PCP - General Family Medicine 11/24/20 Mikayla Bhagat Gunstock Spray Unit FeederPurification Director 05/09/23
--- OUTSIDE RECORDS SUMMARY | 2025-01-23 17:02 | XMS_ITS | Encounter Summary ---
Author Organization [employer] Address 75 [facility] 7t [place] [address] Care Team Providers Care Warehouse Worker 2Nd Shift Name Role Phone Jessi Dueñas MD Primary Care Provider [phone] Encounter Details Date Type Department Care Team (Late st Contact Info) Description 10/12/2022 Orders Only [facility]INE [address] [place] [address] Jessi Dueñas MD [address] [place] [address] Acute bilateral low back pain, unspecified whether [...] 9:30 AM EST Clinical Support [facility] [address] [place] [address] 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, RN documented as of this encounter Visit Diagnoses Diagnosis Acute bilateral low back pain, unspecified whether sciatica present- Primary Hematoma of left knee region Sprain of left medial ankle joint, subsequent encounter documented in this encounter Additional Health Concerns Assessment Noted Time PHQ-9 Depression Total Score: 19 023 2:59 PM EST documented as of this encounter Care Teams Warehouse Worker 2Nd Shift Relationship Specialty Start Date End Date Jessi Dueñas MD [address] [place] [address] PCP - General Family Medicine 11/24/20 Mikayla Bhagat Brass Molder HelperFranchise Specialist 05/09/23 documented as of this encounter
--- OUTSIDE RECORDS SUMMARY | 2025-01-23 17:02 | XMS_ITS | Encounter Summary ---
Author Organization [employer] Address [address] [facility] 7t [place] [address] Care Team Providers Care Waiter/Waitress Economy Class Name Role Phone Jessi Dueñas MD Primary Care Provider [phone] Reason for Referral * Consultation (Routine) - Closed Specialty Diagnoses / Procedures Referred By Contac t Referred To Contact Physical Therapy Diagnoses Acute bilateral low back pain without sciatica Chronic pain of both knees Bilateral hand pain Jessi Dueñas MD [address] [place] [address] Phone: tel: fax: [facility] [address] Phone: tel: fax: Referral ID Status Reason Start Date Expiration Date V isits Requested Visits Authorized [id number] Closed Specialty Services Required 07/29/2024 07/29/2025 20 20 Encounter Details Date Type Department Care Team (Late st Contact Info) Description 07/26/2024 Orders Only [facility] MED[facility]INE [address] [place] [address] Jessi Dueñas MD [address] [place] [address] Acute bilateral low back pain without sciatica [...] Description 02/04/2025 9:30 AM EST Clinical Support [facility] [address] [place] [address] 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 RN Scheduled Referrals Name Type Priority Associated [...] documented as of this encounter Care Teams Waiter/Waitress Economy Class Relationship Specialty Start Date End Date Jessi Dueñas MD [address] [place] [address] PCP - General Family Medicine 11/24/20 Mikayla Bhagat Network StrategistFinish Mill Operator 05/09/23 documented as of this encounter
--- OUTSIDE RECORDS SUMMARY | 2025-01-23 17:02 | XMS_ITS | Encounter Summary ---
Author Organization [employer] Address [address] [facility] [address] 7t [place] [address] Care Team Providers Care Outsewer Name Role Phone Jessi Dueñas MD Primary Care Provider [phone] Reason for Visit * Reason Comments Med Refill Encounter Details Date Type Department Care Team (Late st Contact Info) Description 09/10/2024 Refill [facility] [address] [place] [address] Jessi Dueñas MD [address] [place] [address] Fibromyalgia Social History Tobacco Use Types Packs/Day [...] Description 02/04/2025 9:30 AM EST Clinical Support [address] [address] 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 RN documented as of this encounter Visit Diagnoses Diagnosis Fibromyalgia Unspecified myalgia and myositis documented in this encounter Additional Health Concerns Assessment Noted Time PHQ-9 Depression Total Score: 24 025 9:47 AM EDT documented as of this encounter Care Teams Outsewer Relationship Specialty Start Date End Date Jessi Dueñas MD [address] [place] [address] PCP - General Family Medicine 11/24/20 Mikayla Bhagat Support Team MemberAirconditioning Drafting Officer 05/09/23 documented as of this encounter
--- OUTSIDE RECORDS SUMMARY | 2025-01-23 17:02 | XMS_ITS | Encounter Summary ---
Author Organization [employer] Address 75 [facility] 7t [place] [address] Care Team Providers Care Plug Paster Name Role Phone Jessi Dueñas MD Primary Care Provider [phone] Reason for Visit * Reason Onset Date Comments Referral 12/23/2022 Encounter Details Date Type Department Care Team ([facility] st Contact Info) Description 12/23/2022 Telephone [facility] [address] [place] [address] Jessi Dueñas MD [address] [place] [address] Referral Social History Tobacco Use Types Packs/Day [...] have interpreters. Any questions, contact pt at [phone] (Upper Sorbian) documented in this encounter Plan of Treatment Upcoming Encounters Date Type Department Care Team (Late st Contact Info) Description 02/04/2025 9:30 AM EST Clinical Support [facility] [address] [place] [address] 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, RN documented as of this encounter Visit Diagnoses Not on filedocumented in this encounter Additional Health Concerns Assessment Noted Time PHQ-9 Depression Total Score: 19 023 2:59 PM EST documented as of this encounter Care Teams Plug Paster Relationship Specialty Start Date End Date Jessi Dueñas MD [address] [place] [address] PCP - General Family Medicine 11/24/20 Mikayla Bhagat Auricular AcupuncturistCondenser Winder 05/09/23 documented as of this encounter
--- OUTSIDE RECORDS SUMMARY | 2025-01-23 17:02 | XMS_ITS | Encounter Summary ---
Author Organization [employer] Address [address] [facility] [address] 7[address] [place] [address] Care Team Providers Care Clinical Immunologist Name Role Phone Jessi Dueñas MD Primary Care Provider [phone] Reason for Visit * Reason Onset Date [...] (Late st Contact Info) Description 06/03/2024 Refill [facility]INE [address] [place], [place] [phone] Jessi Dueñas MD [address] [place], [place] [phone] Fibromyalgia Social History Tobacco Use Types Packs/Day [...] Description 02/04/2025 9:30 AM EST Clinical Support [facility] [address] [place] [address] 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, RN documented as of this encounter Visit Diagnoses Diagnosis Fibromyalgia Unspecified myalgia and myositis documented in this encounter Additional Health Concerns Assessment Noted Time PHQ-9 Depression Total Score: 8 09/19/19 24 11:07 AM EDT documented as of this encounter Care Teams Clinical Immunologist Relationship Specialty Start Date End Date Jessi Dueñas MD [address] [place] [address] PCP - General Family Medicine 11/24/20 Mikayla Bhagat Lozenge Dough MixerCar Sales Associate 05/09/23 documented as of this encounter
--- OUTSIDE RECORDS SUMMARY | 2025-01-23 17:02 | XMS_ITS | Encounter Summary ---
Author Organization [employer] Address 75 [facility] 7 [place] [address] Care Team Providers Care Call Center Specialist Name Role Phone Jessi Dueñas MD Primary Care Provider [phone] Reason for Visit * Reason Comments Med Refill Encounter Details Date Type Department Care Team ([facility] st Contact Info) Description 10/25/2023 Refill [facility] [address] [place] [address] Anita Arriaga MD [address] [place] [address] Social History Tobacco Use Types Packs/Day Years [...] 9:30 AM EST Clinical Support [facility] [address] [place] [address] 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, RN documented as of this encounter Visit Diagnoses Not on filedocumented in this encounter Additional Health Concerns Assessment Noted Time PHQ-9 Depression Total Score: 8 09/19/19 24 11:07 AM EDT documented as of this encounter Care Teams Call Center Specialist Relationship Specialty Start Date End Date Jessi Dueñas MD [address] [place] [address] PCP - General Family Medicine 11/24/20 Mikayla Bhagat Instructor Industrial DesignData Entry Clerk 05/09/23 documented as of this encounter
--- OUTSIDE RECORDS SUMMARY | 2025-01-23 17:02 | XMS_ITS | Encounter Summary ---
Author Organization [employer] Address [address] [facility] [address] 7t [place] [address] Care Team Providers Care Gamma Facilities Operator Name Role Phone Jessi Dueñas MD Primary Care Provider [phone] Encounter Details Date Type Department Care Team ([facility] st Contact Info) Description 02/08/2023 Telephone [facility]INE [address] [place] [address] Jessi Dueñas MD [address] [place] [address] Social History Tobacco Use Types Packs/Day Years [...] Description 02/04/2025 9:30 AM EST Clinical Support [facility] [address] [place] [address] 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, RN documented as of this encounter Visit Diagnoses Not on filedocumented in this encounter Additional Health Concerns Assessment Noted Time PHQ-9 Depression Total Score: 20 023 9:49 AM EDT documented as of this encounter Care Teams Gamma Facilities Operator Relationship Specialty Start Date End Date Jessi Dueñas MD [address] [place] [address] PCP - General Family Medicine 11/24/20 Mikayla Bhagat Product PlannerMaterial Attendant 05/09/23 documented as of this encounter
--- OUTSIDE RECORDS SUMMARY | 2025-01-23 17:02 | XMS_ITS | Encounter Summary ---
Author Organization [employer] Address 75 [facility] 7t [place] [address] Care Team Providers Care Teletypewriter Operator Name Role Phone Jessi Dueñas MD Primary Care Provider [phone] Reason for Visit * Reason Onset Date Comments Other 01/05/2023 Encounter Details Date Type Department Care Team ([facility] st Contact Info) Description 01/05/2023 Telephone [facility] MEDICINE [address] [place] [address] Jessi Dueñas MD [address] [place] [address] Other Social History Tobacco Use Types Packs/Day [...] 12:53 PM EDT TC placed to pt [phone] to inform pt PCP sent Cymbalta to the pharmacy yesterday at [facility] for her pain. Pt reports she called [facility] pharmacy today and they told her that they did not receive the script. RN placed pt on hold and called [facility] pharmacy who confirmed they did [...] rheumatology referral d/t arthritis txcenter not speaking tajik. Pt was informed PCP has placed new rheumatology referral for [facility] yesterday. Pt verbalized understanding. Pt to f/u PRN. * Telephone Encounter - Divya Frank - 01/05/2023 11:51 AM EDT Tc from pt states PCP advised her she will send a script for pain on 01/04 appointment but pt never received medication. Please contact pt at [phone] (Mongolian) documented in this encounter Plan of Treatment Upcoming Encounters Date Type Department Care Team (Late st Contact Info) Description 02/04/2025 9:30 AM EST Clinical Support [facility] MEDICINE [address] [place] [address] 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, HERNANDEZ documented as of this encounter Visit Diagnoses Not on filedocumented in this encounter Additional Health Concerns Assessment Noted Time PHQ-9 Depression Total Score: 20 023 9:49 AM EDT documented as of this encounter Care Teams Teletypewriter Operator Relationship Specialty Start Date End Date Jessi Dueñas MD [address] [place] [address] PCP - General Family Medicine 11/24/20 Mikayla Bhagat Special Effects DesignerSystem Support Administrator 05/09/23 documented as of this encounter
== END 2025-01-23 14:29 | disposition home or self-care (01) ==
LOC: HO.HUSH 13:29
PROVIDERS: PCP General Practice; Visit Provider Urology
DX: R31.0 Gross hematuria (principal); R31.29 Other microscopic hematuria
CPT/HCPCS: 52000

== ENCOUNTER → 2025-01-23 13:29 | Outpatient (BNVA) | payer MEDICAID, SELFPAY | PROVIDERS: PCP General Practice; Visit Provider Urology | DX: R31.0 Gross hematuria (principal); F12.20 Cannabis dependence, uncomplicated; F17.201 Nicotine dependence, unspecified, in remission | CPT/HCPCS: 52000; 81003 ==

== ENCOUNTER 2025-03-04 12:40 | Outpatient (AMB) | payer MEDICAID, SELFPAY ==
--- NOTE | 2025-03-04 12:50 | MHC.OFFVIS ---
Vital Signs 03/04/25 12:55 Height 5 ft 7 in Weight 116 lb BMI 18.2 Intake Visit Reasons: Left knee pain Intake Note: Kera is a 44 year old female who presents with complaints of left knee pain. She describes her pain as sharp in nature. She has had cortisone injections in the past which gave her fairly good relief. She has tried Tylenol, anti-inflammatory medicines and physical therapy exercises which gave her minimal relief. She wishes to hold off on surgery if at all possible. Parts Room Associate Required: Yes Parts Room Associate Services: Parts Room Associate Present Allergies cephalexin (From Keflex) Allergy (Intermediate, Verified 03/04/25 12:55) Eye Swelling morphine Allergy (Intermediate, Verified 03/04/25 12:55) Itching shellfish derived (SHELLFISH DERIVED) Allergy (Intermediate, Verified 03/04/25 12:55) swelling Medication List - Last Reconciled 03/04/25 by Sam Panda MD albuterol sulfate 2.5 mg inhalation Q4-6H calcium carbonate (Antacid Ext Str (calcium carb)) 1 - 2 tabs PO DIRECTED cholecalciferol (vitamin D3) 50 mcg PO QAM clonazepam 0.75 mg PO BID PRN cyproheptadine 4 mg PO BID diphenhydramine HCl (Banophen) 25 - 50 mg PO BEDTIME PRN famotidine 20 mg PO QPM fiber tabs PO BID fluoxetine 40 mg PO QAM fluticasone propionate 220 mcg/actuation (Flovent HFA) 1 puff inhalation BID hydrocortisone 0.5% 1 appl topical DAILY PRN Lactobacillus acidoph-L.bulgar 1 million cell 1 tab PO QAM loperamide 4 mg (2 x 2 mg) PO TID PRN loratadine (Allergy Relief (loratadine)) 10 mg PO DAILY magnesium hydroxide (Milk of Magnesia) 5 mL PO BEDTIME methylcellulose (laxative) (Citrucel) 500 mg PO BID mometasone 200 mcg/actuation (Asmanex HFA) 1 puff inhalation BID montelukast 10 mg PO QPM multivit-iron sulf-folic acid 15 mg iron- 400 mcg (Tab-A-Kisha Multivitamin w-iron) 1 tab PO QAM nortriptyline 20 mg (2 x 10 mg) PO BEDTIME 90 days ondansetron 8 mg PO Q12H PNV,calcium 76-nmau-gjoft acid 27 mg iron- 1 mg ( Vitamins Plus Low Iron) 1 tab PO QAM ropinirole 4 mg PO BEDTIME sennosides (senna) 17.2 mg (2 x 8.6 mg) PO BEDTIME PRN solifenacin (Vesicare) 10 mg PO DAILY tramadol 50 mg PO Q12H PRN zolpidem 5 mg PO BEDTIME PRN PFSH Medical History H. pylori infection Back pain Left knee pain Encounter for IUD removal and reinsertion IUD check up Diarrhea C. difficile colitis Asthma GERD (gastroesophageal reflux disease) Bipolar disorder Anxiety and depression Constipation Diarrhea Surgical History History of section History of esophagogastroduodenoscopy (EGD) H/O colonoscopy History of tubal ligation Family History Family/Other Cancer Other Family history of arthritis Social History Alcohol intake: never Patient Tobacco Use Status: Former Tobacco user Tobacco use type: Cigarette Substance Use Type: Marijuana Female Reproductive History Menstrual Age of Menarche: 17 Physical Exam Vital Signs: BMI result Body Mass Index 18.2 Const Other: Well-nourished well-developed very friendly female awake alert and oriented x3 in no acute distress Extrem Other: Left knee examination shows a minimal effusion, palpable crepitus with range of motion, pain with range of motion, no instability Office Procedures AMB Joint Injection/Aspiration Joint Injection/Aspiration Primary Site: Left Knee Prep: site was prepped using aseptic technique Injected: 40 mg of, DepoMedrol, with 3 mL of and 1% plain Lidocaine Procedure: The patient tolerated the procedure well Coding 44282 - Large joint Procedure code (CPT) selection complete Assessment & Plan Assessment & Plan (1) Arthritis of left knee: Code(s): M17.12 - Unilateral primary osteoarthritis, left knee Category: Medical (2) Left knee pain: Code(s): M25.562 - Pain in left knee Plan Ms. Lc Nicole presents with left knee pain due to degenerative joint disease. I had a lengthy discussion with the patient regarding the treatment options. The risks and benefits of a left knee cortisone injection were discussed at length with the patient. The patient wished to proceed. She tolerated the injection well. She will continue with her home exercise program. She will contact me prior to her follow-up appointment in 3 months should any questions or concerns arise. Feel free to call me at any time should questions regarding her orthopedic management arise. I spent 21 minutes in reviewing the patient's records and imaging studies, seeing the patient and documenting in the medical record. Orders: Orders AMB Joint Injection/Aspiration Today M17.12 - Unilateral primary osteoarthritis, left knee Coding Level of Care Code Est Pt Level 3 (25095) Complex visit Add On G2211 Diagnoses Arthritis of left knee M17.12 Left knee pain M25.562 CPT Codes Coding - 03472 Large joint: 27162 - Large joint ([id number])
[2025-03-04 12:55] VITALS: BMI 18.2
--- OUTSIDE RECORDS SUMMARY | 2025-03-04 14:37 | XMS_ITS | Encounter Summary ---
Author Organization [employer] Address 75 [facility] 7t [place] [address] Care Team Providers Care Terminal System Operator Name Role Phone Jessi Dueñas MD Primary Care Provider [phone] Encounter Details Date Type Department Care Team (Late Contact Info) Description 03/29/2022 Orders Only [facility] MED[facility]INE [address] [place] [address] Jessi Dueñas MD [address] [place] [address] Choking episode occurring at night (Primary Dx) [...] Department Care Team (Late Contact Info) Description 05/05/2025 9:30 AM EST Clinical Support [facility] [address] [place] [address] 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, RN documented as of this encounter Visit Diagnoses Diagnosis Choking episode occurring at night- Primary documented in this encounter Care Teams Terminal System Operator Relationship Specialty Start Date End Date Jessi Dueñas MD [address] [facility] [place] [address] PCP - General Family Medicine 11/24/20 Mikayla Bhagat Second Facing BasterMill Supervisor 05/09/23 documented as of this encounter
--- OUTSIDE RECORDS SUMMARY | 2025-03-04 14:37 | XMS_ITS | Encounter Summary ---
Author Organization [employer] Address 75 [facility] 7t [place] [address] Care Team Providers Care Plastic Production Machine Setter Name Role Phone Jessi Dueñas MD Primary Care Provider [phone] Encounter Details Date Type Department Care Team (Late st Contact Info) Description 10/12/2022 Orders Only [facility] MED[facility]INE [address] [place] [address] Jessi Dueñas MD [address] [place] [address] Acute bilateral low back pain, unspecified whether [...] Description 05/05/2025 9:30 AM EST Clinical Support [address] [address] 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, RN documented as of this encounter Visit Diagnoses Diagnosis Acute bilateral low back pain, unspecified whether sciatica present- Primary Hematoma of left knee region Sprain of left medial ankle joint, subsequent encounter documented in this encounter Additional Health Concerns Assessment Noted Time PHQ-9 Depression Total Score: 19 023 2:59 PM EST documented as of this encounter Care Teams Plastic Production Machine Setter Relationship Specialty Start Date End Date Jessi Dueñas MD [address] [place] [address] PCP - General Family Medicine 11/24/20 Mikayla Bhagat Business Law TeacherSupply Assistant 05/09/23 documented as of this encounter
--- OUTSIDE RECORDS SUMMARY | 2025-03-04 14:37 | XMS_ITS | Encounter Summary ---
Author Organization [employer] Address [address] [facility] [address] [place] [address] Care Team Providers Care Underground Drill Operator Name Role Phone Jessi Dueñas MD Primary Care Provider [phone] Reason for Visit * Reason Comments Med Refill Encounter Details Date Type Department Care Team (Late st Contact Info) Description 12/27/2024 Refill [facility] [address] [place] [address] Jessi Dueñas MD [address] [place] [address] Polyarthralgia; Fibromyalgia Social History Tobacco Use Types [...] Care Team (Late st Contact Info) Description 05/05/2025 9:30 AM EST Clinical Support [address] [address] 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 RN documented as of this encounter Visit Diagnoses Diagnosis Polyarthralgia Pain in joint, multiple sites Fibromyalgia Unspecified myalgia and myositis documented in this encounter Additional Health Concerns Assessment Noted Time PHQ-9 Depression Total Score: 24 025 9:47 AM EDT documented as of this encounter Care Teams Underground Drill Operator Relationship Specialty Start Date End Date Jessi Dueñas MD [address] [place] [address] PCP - General Family Medicine 11/24/20 Mikayla Bhagat Hospice DirectorWet Cotton Feeder 05/09/23 documented as of this encounter
--- OUTSIDE RECORDS SUMMARY | 2025-03-04 14:37 | XMS_ITS | Encounter Summary ---
Author Organization [employer] Address 75 [facility] 7t [place] [address] Care Team Providers Care Closing Machine Operator Name Role Phone Jessi Dueñas MD Primary Care Provider [phone] Reason for Visit * Reason Comments Med Refill Encounter Details Date Type Department Care Team ([facility] st Contact Info) Description 11/23/2023 Refill [facility] MEDICINE [address] [place] [address] Jessi Dueñas MD [address] [place] [address] Social History Tobacco Use Types Packs/Day Years [...] Description 05/05/2025 9:30 AM EST Clinical Support [facility]ICINE [address] [place] [address] 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, RN documented as of this encounter Visit Diagnoses Not on filedocumented in this encounter Additional Health Concerns Assessment Noted Time PHQ-9 Depression Total Score: 8 09/19/19 24 11:07 AM EDT documented as of this encounter Care Teams Closing Machine Operator Relationship Specialty Start Date End Date Jessi Dueñas MD [address] [place] [address] PCP - General Family Medicine 11/24/20 Mikayla Bhagat Waiter/Waitress First ClassAir Breaker Operator 05/09/23 documented as of this encounter
--- OUTSIDE RECORDS SUMMARY | 2025-03-04 14:37 | XMS_ITS | Encounter Summary ---
Author Organization [employer] Address 75 [facility] 7t [place] [address] Care Team Providers Care Supervisor Painting Name Role Phone Jessi Dueñas MD Primary Care Provider Reason for Visit * Reason Onset Date Comments Referral 12/23/2022 Encounter Details Date Type Department Care Team ([facility] st Contact Info) Description 12/23/2022 Telephone [facility] MEDICINE [address] [place] [address] Jessi Dueñas MD [address] [place] [address] Referral Social History Tobacco Use Types Packs/Day [...] have interpreters. Any questions, contact pt at [phone] (Yi) documented in this encounter Plan of Treatment Upcoming Encounters Date Type Department Care Team (Late st Contact Info) Description 05/05/2025 9:30 AM EST Clinical Support [facility] MEDICINE [address] [place] [address] 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, RN documented as of this encounter Visit Diagnoses Not on filedocumented in this encounter Additional Health Concerns Assessment Noted Time PHQ-9 Depression Total Score: 19 023 2:59 PM EST documented as of this encounter Care Teams Supervisor Painting Relationship Specialty Start Date End Date Jessi Dueñas MD [address] [place] [address] PCP - General Family Medicine 11/24/20 Mikayla Bhagat Boot RepairerPlastics Factory Worker 05/09/23 documented as of this encounter
--- OUTSIDE RECORDS SUMMARY | 2025-03-04 14:37 | XMS_ITS | Clinical Summary ---
Author Organization [employer] Address [address] [facility] 7t [place] [address] Care Team Providers Care Laser Set Up Operator Name Role Phone Jessi Dueñas MD Primary Care Provider [phone] Allergies Active Allergy Reactions Criticality Noted Date [...] in the morning. 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 May repeat every 2-3 minutes if needed, alternating nostrils, until medical assistance becomes available. 2 each 3 025 2025 Active cholecalciferol VITAMIN D (Vitamin D-3) 50 MCG (1999 UT) tablet TAKE 1 TABLET BY MOUTH EVERY MORNING 90 tablet 3 025 Active montelukast (Singulair) 10 MG tablet TAKE 1 TABLET BY MOUTH EVERY EVENING FOR ASTHMA 90 tablet 3 025 Active nortriptyline (Pamelor) 10 MG capsule TAKE 1 CAPSULE BY MOUTH AT BEDTIME, INCREASE TO 2 CAPSULES AT BEDTIME AFTER 2 WEEKS 025 Active sertraline (Zoloft) 50 MG tablet TAKE 1 AND 1/2 TABLETS BY MOUTH EVERY EVENING 025 Active clonazePAM (KlonoPIN) 0.5 MG tablet TAKE 1 AND 1/2 TABLETS BY MOUTH TWICE DAILY NEEDED Active diphenhydrAMINE (BENADryl) 25 MG capsule TAKE 1 TO 2 CAPSULES BY MOUTH AT BEDTIME NEEDED FOR SLEEP Active FLUoxetine (PROzac) 20 MG capsule TAKE 3 CAPSULES BY MOUTH EVERY DAY IN THE MORNING 025 Active rOPINIRole (Requip) 4 MG tabletIndications :Restless leg syndrome Take 1 tablet (4 mg) by mouth at bedtime. 90 tablet 2 025 Active traMADol (Ultram) 50 MG tabletIndications :Polyarthralgia,F ibromyalgia TAKE 1 TABLET BY MOUTH EVERY TWELVE HOURS NEEDED FOR SEVERE PAIN FOR UP TO 28 DAYS 56 tablet 02/27/20 25 4:15 PM EST 025 Active Mometasone Furoate (Asmanex HFA) 200 MCG/ACT aerosol INHALE 1 PUFF TWICE DAILY, RINSE MOUTH AFTER USING. 13 g 3 025 Active rOPINIRole (Requip) 4 MG tabletIndications :Restless leg syndrome Take 1 tablet (4 mg) by mouth at bedtime. 90 tablet 2 025 2024 Discontinued(R eorder (will not trigger notification to Pharmacy)) Asmanex HFA 200 MCG/ACT aerosol INHALE 1 PUFF BY MOUTH TWICE DAILY, RINSE MOUTH AFTER USING. 13 g 1 02/21/20 25 2:21 PM EST 025 2024 Discontinued traMADol (Ultram) 50 MG tabletIndications :Polyarthralgia,F ibromyalgia Take 1 tablet (50 mg) by mouth every 12 (twelve) hours if needed for severe pain for up to 28 days. 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 Labs showed low titer [...] & Plan (09/19/2023 6:11 PM EDT): 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 Labs showed low titer [...] has already asked an agency to do MANAGER ASSESSMENT evaluation To go to medical records and [...] & Plan (02/20/2023 12:56 PM EST): Call [facility] to get appointment [...] (05/19/2023 10:31 AM EST): Plan to see [facility] rheumatology in June [...] 12:59 PM EST): Will send referral to [facility] rheumatology, JUANITO + , whole body pain, fatigue, all worse after two episodes of C diff Still likely fibromyalgia Recommend avoidance of marijuana and cocaine, drugs purchased on the street Assessment & Plan (01/04/2023 7:56 PM EDT): Will send referral to [facility] rheumatology, JUANITO + , whole body pain, fatigue, all worse after two episodes of C diff Acute bilateral low back jian n without sciatica 10/27/2022 10/31/2024 Assessment & Plan (10/27/2022 10:44 AM EDT): I also discontinue today flexeril and switch to baclofen (short curse) patient is aware of side effects, somnolence, 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 Hematoma of left [...] Encounters Date Type Department Care Team Description 03/01/2025 Refill [facility] MED[facility]INE [address] [place] [address] Jessi Dueñas MD 02/25/2025 Refill [facility] [address] [place] [address] Jessi Dueñas MD Polyarthralgia; Fibromyalgia 02/18/2025 Refill [facility] MED[facility] [address] [place] [address] Jessi Dueñas MD Restless leg syndrome 02/04/2025 9:30 AM EST Clinical Support [facility] [address] [place] [phone] 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 RN 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 (Primary Dx) 02/04/2025 Telephone [facility] MEDICINE [address] [place] [address] 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 RN BPI Scoring 02/04/2025 Travel 01/31/2025 Telephone [facility] [address] [place] [phone] Jessi Dueñas MD telephone call 01/24/[address] [address] Jessi Dueñas MD Polyarthralgia; Fibromyalgia 01/17/[address] [address] Jessi Dueñas MD Durable Medical Equipment (DME: Bilateral Velcro Knee Braces) 01/16/[address] [address] Jessi Dueñas MD telephone call; Durable Medical Equipment (Brace.) 01/13/2025 1:30 PM EDT Office Visit [address] [address] Jessi Dueñas MD Fibromyalgia (Primary Dx); Irritable bowel syndrome with diarrhea; Severe depression (CMS/HCC) (HCC); 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; Anxiety; Bipolar disorder, current episode mixed, moderate (CMS/HCC) (HCC) 01/13/2025 Travel 01/10/[address] [address] Jessi Dueñas MD Chart Prep 01/03/2025 Patient Outreach [address] [address] Jessi Dueñas MD Pre-visit Planning (SDOH screening completed on 05/27/2024) 12/27/2024 Refill [facility] [address] [place] [address] Jessi Dueñas MD Polyarthralgia; Fibromyalgia 12/27/[address] [address] Jessi Dueñas MD FYI 12/27/[address] [address] Jessi Dueñas MD Polyarthralgia; Fibromyalgia 12/19/[address] [address] Jessi Dueñas MD Durable Medical Equipment 12/05/2024 Orders Only [facility] External Provider, [facility] 12/04/2024 Refill [facility] MEDICINE [address] [place] [address] Jessi Dueñas MD 12/03/2024 Telephone [facility] MEDICINE [address] [place] [address] Jessi Dueñas MD telephone call; Durable Medical Equipment (DME Order ) from Last 3 Months Immunizations Immunization Administration [...] Description 05/05/2025 9:30 AM EST Clinical Support [address] [address] 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, RN Health Maintenance Due Date Last Done Comments Dental Oral Exam 1980 Dental Prophylaxis 1982 Hepatitis B Vaccines (1 of 3 - 19+ 3-dose series) 2001 Pneumococcal Vaccine: Pediatrics (0 to 5 Years) and At-Risk Patients (6 to 49) Years (1 of 2 - PCV) 2001 COVID-19 Vaccine ( - season) 2024 09/19/2023, 07/06/2021, 08/10/2020, Additional history [...] Smear 02/22/2026 02/22/2021 Mammogram 09/30/2026 09/30/2024, 09/28/2023 Dental X-Ray: Full Mouth 10/13/2027 10/11/2024 DTaP/Tdap/Td Vaccines (3 - Td or Tdap) [...] Comments POCT JIMMY-14 URINE DRUG SCREEN Routine 02/04/2025 9:27 AM EST 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 CT UROGRAM WO CONTRAST Routine 9:13 AM EDT CREATININE, SERUM Routine 12/05/2024 8:5 0 AM EDT UREA NITROGEN (BUN) Routine 12/05/2024 8 :50 AM EDT BI MAMMOGRAM SCREENING TOMOSYNTHESIS BILATERAL Routine [...] Relevant to Health Maintenance Results * (ABNORMAL) POCT JIMMY-14 Urine Drug Screen (02/04/2025 9:27 AM EST) THC Positive(A) Negative Cocaine Screen, Urine Negative Negative Opiate Screen, Urine Negative Negative Methamphetamine Screen Urine Negative Negative Amphetamine Screen, Urine Negative Negative Benzodiazepines Screen, Urine Negative Negative Barbiturate Screen, Urine Negative Negative Methadone Screen, Urine Negative Negative Buprenophine Screen, Urine Negative Negative TCA, Urine Negative Negative MDMA Urine Negative Negative ng/mL Oxycodone Screen, Urine Negative Negative Phencyclidine (PCP), Urine Negative Negative Propoxyphene, Urine Negative Negative Fentanyl, Urine Negative Negative Urine Urine specimen obtained by clean catch procedure / Unknown 02/04/2025 9:27 AM EST Becky Good RN - 02/04/2025 9:27 AM EST UTOX cup Lot#[id number] Exp. 01/07/26 Internal Pass Control Jessi Dueñas MD POINT OF CARE TEST ENTER/EDIT ORDERABLES Final Result * CT Urogram w/o Contrast (12/05/2024 9:13 AM EDT) Anatomical Region Laterality Modality Ureter, Upper urinary tract Comp uted Tomography 12/05/2024 9:13 AM EDT Narrative 12/05/2024 10:02 AM EDT [address] [address] [address] Scan Report Signed Patient: Kera Armstrong MR#: [id number] : 1980 Acct:[id number] Age/Sex: 44 / F ADM Date: 12/05/24 Loc: HO.CT Attending Dr: Marlena Garrison [facility] Ordering Physician: Marlena GarrisonANABELLE Date of Service: 12/05/24 Procedure(s): CT urogram Accession Number(s): [id number] cc: Jessi Dueñas; Marlena Garrison [facility] Report Number: [id number]: Total DLP = 382.00 mGy-cm Reason for [...] Frederic Link MD 12/05/2024 09:59 AM EDT Dictated By: Frederic Hunt MD Signed By: <Electronically signed by Frederic Haney MD in OV> 12/05/24 0959 DD/ 0913 TD/TT: 12/05/24 0942 Snow Plow Tractor Operator: Procedure Note Donotuseinterpreter, Image - 12/05/[address] [address] [address] Scan Report Signed Patient: Kera ArmstrongMR#: [id number] : 1980Acct:[id number] Age/Sex: 44 / FADM Date: 12/05/24 Loc: HO.CT Attending Dr: Marlena Garrison [facility] Ordering Physician: Marlena Garrison [facility] Date of Service: 12/05/24 Procedure(s): CT urogram Accession Number(s): [id number] cc: Jessi Dueñas; Marlena Garrison [facility] Report Number: [id number]: Total DLP = 382.00 mGy-cm Reason for [...] MDin OV> 12/05/2459 DD/ 2 TD/TT: 12/05/24941 Snow Plow Tractor Operator: [facility] External Provider IMG CT PROCEDURES Final Result * Creatinine, Serum (12/05/2024 8:50 AM EDT) Creatinine, Serum 0.86 0.5 - 1.4 mg/dL [facility] Estimated Glomerular Filt Rate >60 [facility] Comment:Chronic Kidney Disea se: Estimated GFR < 60 mL/min/1.20d5Vbnhud Kidney Disease: Estimated GFR < 15 mL/min/1.73m2 12/05/2024 8:50 AM EDT 12/05/2024 8:50 AM EDT Generic External Data Provider LAB BLOOD ORDERAB LES Final Result [facility] [address] [place] [phone] * BUN (Blood Urea Nitrogen) (12/05/2024 8:50 AM EDT) Urea Nitrogen (BUN) 15 9 - 16 mg/dL [facility] 12/05/2024 8:50 AM EDT 12/05/2024 8:50 AM EDT us Generic External Data Provider LAB BLOOD ORDERAB LES Final Result [facility] [address] [place] [address] [phone] * BI Mammogram Screening Tomosynthesis Bilateral (09/30/2024 10:50 AM EDT) Anatomical Region Laterality Modality Breast Bilateral Mammography 09/30/2024 10:5 0 AM EDT Narrative 10/13/2024 1:37 PM EDT [address] [place] [address] Mammography Report Signed Patient: Kera Armstrong MR#: [id number] : 1980 Acct:[id number] Age/Sex: 43 / F ADM Date: 09/30/24 Loc: HO.MAMMO Attending Dr: Harjit Parada MD Ordering Physician: Harjit Parada MD Results: 1Negativ e Date of Service: 09/30/24 Follow Up: 1 Year From Orig ina Mammogram Procedure(s): MM tomosynthesis screening BI Accession Number(s): [id number] cc: Jessi Dueñas; Harjit Parada MD EXAMINATION: [...] 10/13/24 1334 DD/ 1050 TD/TT: 09/30/24 1154 Snow Plow Tractor Operator: Procedure Note Donotuseinterpreter, Image - 10/13/2024 [facility] [address] [place] [address] Mammography Report Signed Patient: Kera ArmstrongMR#: [id number] : 1980Acct:[id number] Age/Sex: 43 / FADM Date: 09/30/24 Loc: HO.MAMMO Attending Dr: Harjit Parada MD Ordering Physician: Harjit Parada MDResults: 1Negativ e Date of Service: 09/30/24Follow Up: 1 Year From Orig inal Mammogram Procedure(s): MM tomosynthesis screening BI Accession Number(s): [id number] cc: Jessi Dueñas; Harjit Parada MD EXAMINATION: [...] 10/13/24 1334 DD/ 1050 TD/TT: 09/30/24 1154 Snow Plow Tractor Operator: [facility] External Provider IMG BI PROCEDURES Final Result * Hepatitis Panel, General (05/17/2024 9:40 AM EST) Hepatitis A IgM Nonreactive Nonreactive [facility] Comment:IgM antibodies to AMAYA V not detected; does not exclude earlyacute or recovered HAV infection. ~Hepatitis B Surface Antibody REACTIVE Nonreactive [facility] Comment:REACTIVE: > 11.99 mI U/mL Hepatitis B Core Antibody Nonreactive Nonreactive [facility] Hepatitis C Antibody Nonreactive Nonreactive [facility] Comment:Antibodies to HCV no t detected; does not exclude early acuteHCV infection. Hepatitis B Surface Ag Negative Negative [facility] 05/17/2024 9:40 AM EST 05/17/2024 9:40 AM EST Generic External Data Provider LAB BLOOD ORDERAB LES Final Result [facility] [address] [place] [phone] * HIV-1/2 Antigen and Antibodies, Fourth Generation, with Reflexes (05/17/2024 9:40 AM EST) HIV AB/AG Nonreactive Nonreactive [facility] Comment:HIV-1 p24 Ag and/or HIV-1/HIV-2 Ab not detected.A test result that is nonreactive does not exclude thepossibility of exposure to or infection with HIV-1 and/orHIV-2. Nonreactive results in this assay for individualswith prior exposure to HIV-1 and/or HIV-2 may be due toantigen and antibody levels that are below the limit ofdetection of this assay.The [employer] HIV Ag/Ab Combo assay result andsupplemental assay results should be interpreted inconjunction with the patient's clinical presentation,history and other laboratory results. If the results areinconsistent with clinical evidence, additional testing issuggested to confirm the result. 05/17/2024 9:40 AM EST 05/17/2024 9:40 AM EST us Generic External Data Provider LAB BLOOD ORDERAB LES Final Result [facility] [address] [place] [phone] * THINPREP TIS PAP (02/22/2021 12:00 [...] along with historic and current clinical information. Comment: SEE COMMENT [facility] Comment: This case could not be evaluated with computer assisted technology. The slide was manually screened according to routine procedures. Survey Party Chief : SEE COMMENT [facility] Comment: KN, CT(ASCP) CT screening location: [address] [address] Interpretation/R esult: Negative for intraepithelial lesion or malignancy. [facility] LMP: NONE GIVEN [facility] Prev. BX: NONE GIVEN [facility] Prev. PAP: NONE GIVEN [facility] SOURCE: None given [facility] Statement Of Adequacy: SEE COMMENT [facility] Comment: Satisfactory for evaluation. Endocervical/transformation zone component absent. Partially obscuring blood 02/22/2021 us Jessi Dueñas MD LAB PATHOLOGY ORDERABLES Final Result Performing Organization Address [facility] Co de Phone Number [facility] [address] * HPV mRNA E6/E7 REFLEX TO HPV 16, 18/45 (02/22/2021 12:00 AM EST) HPV nRNA E6/E7 Not Detected Not Detected [facility] Comment: Methodology: Food Services Manager-Mediated Amplification This assay detects E6/E7 viral messenger RNA (mRNA) from 14 high-risk HPV types (16,18,31,33,35,39,45,51,52,56,58,59,66,68). The analytical performance characteristics of this assay have been determined by [employer]. The modifications have not been cleared or approved by the FDA. This assay has been validated pursuant to the CLIA regulations and is used for clinical purposes. For additional information, please refer to http://[employer]/faq/ZVI377e9 (This link if provided for information/ educational purposes only.) 02/22/2021 Jessi Dueñas MD LAB CYTOLOGY ORDERABLES Final Result Performing Organization Address [facility] de Phone Number [facility] [address] from Last 3 Months or Most Recently Relevant to Health Maintenance Insurance [facility] C3 HSN PARTIAL DENTAL-[facility] MEDICAID STAND ADULT Care Teams Laser Set Up Operator Relationship Specialty Start Date End Date Jessi Dueñas MD [address] [place] [phone] PCP - General Family Medicine 11/24/20 Mikayla Bhagat Sustainable Products Marketing ManagerWaitstaff Captain 05/09/23
--- OUTSIDE RECORDS SUMMARY | 2025-03-04 14:37 | XMS_ITS | Encounter Summary ---
Author Organization [employer] Address [address] [address] [place] [address] Care Team Providers Care Agribusiness Internship Name Role Phone Jessi Dueñas MD Primary Care Provider [phone] Reason for Visit * Reason Onset Date Comments Call Back Request 01/23/2024 Encounter Details Date Type Department Care Team ([facility] st Contact Info) Description 01/23/2024 Telephone [facility] MEDICINE [address] [place] [address] Jessi Dueñas MD [address] [place] [address] Call Back Request Social History Tobacco Use [...] no scripts sent. Please contact pt at [phone]. (Ecuadorean Speaker) documented in this encounter Plan of Treatment Upcoming Encounters Date Type Department Care Team (Late st Contact Info) Description 05/05/2025 9:30 AM EST Clinical Support [facility] MEDICINE [address] [place] [address] 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, HERNANDEZ documented as of this encounter Visit Diagnoses Not on filedocumented in this encounter Additional Health Concerns Assessment Noted Time PHQ-9 Depression Total Score: 8 09/19/19 24 11:07 AM EDT documented as of this encounter Care Teams Agribusiness Internship Relationship Specialty Start Date End Date Jessi Dueñas MD [address] [place] [address] PCP - General Family Medicine 11/24/20 Mikayla Bhagat [employer] ManagerAccessories Repairer 05/09/23 documented as of this encounter
--- OUTSIDE RECORDS SUMMARY | 2025-03-04 14:37 | XMS_ITS | Encounter Summary ---
Author Organization [id number] Address [address] [facility] 7t [place] [address] Care Team Providers Care Water Leak Repairer Name Role Phone Jessi Dueñas MD Primary Care Provider [phone] Reason for Referral * Consultation (Routine) - Closed Specialty Diagnoses / Procedures Referred By Contac t Referred To Contact Physical Therapy Diagnoses Acute bilateral low back pain without sciatica Chronic pain of both knees Bilateral hand pain Jessi Dueñas MD [address] [place] [address] Phone: tel: fax: [facility] [address] Phone: tel: fax: Referral ID Status Reason Start Date Expiration Date V isits Requested Visits Authorized [id number] Closed Specialty Services Required 04/17/2024 04/17/2025 20 20 Encounter Details Date Type Department Care Team (Late st Contact Info) Description 04/17/2024 Orders Only [facility] MEDICINE [address] [place] [phone] Jessi Dueñas MD [address] [place] [address] Acute bilateral low back pain without sciatica [...] Description 05/05/2025 9:30 AM EST Clinical Support [facility] MEDICINE [address] [place] [phone] 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, RN Scheduled Referrals Name Type [...] as of this encounter Care Teams Water Leak Repairer Relationship Specialty Start Date End Date Jessi Dueñas MD [address] [place] [address] PCP - General Family Medicine 11/24/20 Mikayla Bhagat Home AideHaul Truck Driver 05/09/23 documented as of this encounter
--- OUTSIDE RECORDS SUMMARY | 2025-03-04 14:37 | XMS_ITS | Encounter Summary ---
Author Organization [employer] Address [address] [facility] 7t [place] [address] Care Team Providers Care Derrick Engineer Name Role Phone Jessi Dueñas MD Primary Care Provider [phone] Reason for Visit * Reason Onset Date Comments Other 01/05/2023 Encounter Details Date Type Department Care Team ([facility] st Contact Info) Description 01/05/2023 Telephone [facility] MEDICINE [address] [place] [address] Jessi Dueñas MD [address] [place] [address] Other Social History Tobacco Use Types Packs/Day [...] 12:53 PM EDT TC placed to pt [phone] to inform pt PCP sent Cymbalta to the pharmacy yesterday at [facility] for her pain. Pt reports she called [facility] pharmacy today and they told her that they did not receive the script. RN placed pt on hold and called [facility] pharmacy who confirmed they did [...] rheumatology referral d/t arthritis txcenter not speaking irish. Pt was informed PCP has placed new rheumatology referral for [facility] yesterday. Pt verbalized understanding. Pt to f/u PRN. * Telephone Encounter - Divya Frank - 01/05/2023 11:51 AM EDT Tc from pt states PCP advised her she will send a script for pain on 01/04 appointment but pt never received medication. Please contact pt at [phone] (Danish) documented in this encounter Plan of Treatment Upcoming Encounters Date Type Department Care Team (Late st Contact Info) Description 05/05/2025 9:30 AM EST Clinical Support [facility] MEDICINE [address] [place] [address] 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, HERNANDEZ documented as of this encounter Visit Diagnoses Not on filedocumented in this encounter Additional Health Concerns Assessment Noted Time PHQ-9 Depression Total Score: 20 023 9:49 AM EDT documented as of this encounter Care Teams Derrick Engineer Relationship Specialty Start Date End Date Jessi Dueñas MD [address] [place] [address] PCP - General Family Medicine 11/24/20 Mikayla Bhagat Field Marketing DirectorBootmaker Hand 05/09/23 documented as of this encounter
--- OUTSIDE RECORDS SUMMARY | 2025-03-04 14:37 | XMS_ITS | Encounter Summary ---
Author Organization [employer] Address [address] 7[address] [place] [address] Care Team Providers Care Veneer Stock Grader Name Role Phone Jessi Dueñas MD Primary Care Provider [phone] Reason for Visit * Reason Onset Date Comments Results 05/23/2023 Encounter Details Date Type Department Care Team ([facility] st Contact Info) Description 05/23/2023 Telephone [facility]ICINE [address] [place] [address] Jessi Dueñas MD 230 [place] [address] Results Social History Tobacco Use Types Packs/Day [...] T/C to pt. For below message through Rapid Diagnostek id - [id number], pt. Informed regarding normal x-ray result. pt. [...] case of any new or worsening symptoms. [facility] hours are reviewed. Pt. Verbally agreed and understood. * Telephone Encounter - Paco Sylvester - 05/24/2023 3:59 PM EST Tc from pt returning call. Please contact at [phone] * Telephone Encounter - Yumiko Whitaker RN - 05/24/2023 12:47 PM EST Return T/C to pt. For bellow message Normal x-ray result. No answer. LVM to call back on [phone]. * Telephone Encounter - Bran Parker - 05/23/2023 4:41 PM EST TC from pt requesting call back regarding Results. Type of results: X-Ray Date when done: 05/16/23 Facility: [facility] documented in this encounter Plan of Treatment Upcoming Encounters Date Type Department Care Team (Late st Contact Info) Description 05/05/2025 9:30 AM EST Clinical Support [facility] [address] [place] [address] 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, HERNANDEZ documented as of this encounter Visit Diagnoses Not on filedocumented in this encounter Additional Health Concerns Assessment Noted Time PHQ-9 Depression Total Score: 20 023 9:49 AM EDT documented as of this encounter Care Teams Veneer Stock Grader Relationship Specialty Start Date End Date Jessi Dueñas MD [address] [place] [address] PCP - General Family Medicine 11/24/20 Mikayla Bhagat Delicatessen Store ManagerBuilding Equipment Inspector 05/09/23 documented as of this encounter
--- OUTSIDE RECORDS SUMMARY | 2025-03-04 14:37 | XMS_ITS | Encounter Summary ---
Author Organization [employer] Address [address] [place] [address] Care Team Providers Care Vascular Technician Name Role Phone Jessi Dueñas MD Primary Care Provider Encounter Details Date Type Department Care Team (Late st Contact Info) Description 01/11/2023 Orders Only [facility] MEDICINE [address] [place] [address] Jessi Dueñas MD [address] [place] [address] Chronic pain of both knees (Primary Dx) [...] 9:30 AM EST Clinical Support [facility] MED[facility]INE [address] [place] [address] 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, RN documented as of this encounter Visit Diagnoses Diagnosis Chronic pain of both knees- Primary documented in this encounter Additional Health Concerns Assessment Noted Time PHQ-9 Depression Total Score: 20 023 9:49 AM EDT documented as of this encounter Care Teams Vascular Technician Relationship Specialty Start Date End Date Jessi Dueñas MD [address] [place] [address] PCP - General Family Medicine 11/24/20 Mikayla Bhagat Supervisor Fusing RoomRailroad Car Loader 05/09/23 documented as of this encounter
--- OUTSIDE RECORDS SUMMARY | 2025-03-04 14:37 | XMS_ITS | Encounter Summary ---
Author Organization [employer] Address [address] 7[address] [place] [address] Care Team Providers Care Record Keeper Name Role Phone Jessi Dueñas MD Primary Care Provider [phone] Encounter Details Date Type Department Care Team ([facility] st Contact Info) Description 02/08/[address] [facility] [address] [place] [address] Jessi Dueñas MD [address] [place] [address] Social History Tobacco Use Types Packs/Day Years [...] Description 05/05/2025 9:30 AM EST Clinical [address] [facility] [address] [place] [address] 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, RN documented as of this encounter Visit Diagnoses Not on filedocumented in this encounter Additional Health Concerns Assessment Noted Time PHQ-9 Depression Total Score: 20 023 9:49 AM EDT documented as of this encounter Care Teams Record Keeper Relationship Specialty Start Date End Date Jessi Dueñas MD [address] [place] [address] PCP - General Family Medicine 11/24/20 Mikayla Bhagat Paper Rewinder OperatorMechanic Welder Truck Driver 05/09/23 documented as of this encounter
--- OUTSIDE RECORDS SUMMARY | 2025-03-04 14:37 | XMS_ITS | Encounter Summary ---
Author Organization [employer] Address [address] [facility] 7t [place] [address] Care Team Providers Care School Lunch Manager Name Role Phone Jessi Dueñas MD Primary Care Provider [phone] Reason for Visit * Reason Onset Date Comments Nurse Triage 02/07/2023 Encounter Details Date Type Department Care Team ([facility] st Contact Info) Description 02/07/2023 Telephone [facility] MEDICINE [address] [place] [address] Jessi Dueñas MD [address] [place] [address] Nurse Triage Social History Tobacco Use Types [...] 02/07/2023 11:26 AM EST Triage call with [employer] Senior Clinician ID [id number] Pt reports ED visit @ [facility] 02/06/23 for abdominal pain and migraines. Report is requested from [facility] clinical care provider. Pt reports was supposed to [...] lower back pain states she went to [facility] last on 02/06 and did nothing. Patient speaks citizen of [place] documented in this encounter Plan of Treatment Upcoming Encounters Date Type Department Care Team (Late st Contact Info) Description 05/05/2025 9:30 AM EST Clinical Support [facility] MEDICINE [address] [place] [address] 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 RN documented as of this encounter Visit Diagnoses Not on filedocumented in this encounter Additional Health Concerns Assessment Noted Time PHQ-9 Depression Total Score: 20 023 9:49 AM EDT documented as of this encounter Care Teams School Lunch Manager Relationship Specialty Start Date End Date Jessi Dueñas MD [address] [place] [address] PCP - General Family Medicine 11/24/20 Mikayla Bhagat Caster HelperCrop Or Grain Farmworker 05/09/23 documented as of this encounter
--- OUTSIDE RECORDS SUMMARY | 2025-03-04 14:38 | XMS_ITS | Encounter Summary ---
Author Organization [employer] Address [address] 7t [place] [address] Care Team Providers Care Database Architect Name Role Phone Jessi Dueñas MD Primary Care Provider [phone] Reason for Visit * Reason Onset Date [...] (Late st Contact Info) Description 06/03/2024 Refill [facility] MED[facility]INE [address] [place], [place] [phone] Jessi Dueñas MD 230 [place], [place] [phone] Fibromyalgia Social History Tobacco Use Types Packs/Day [...] Description 05/05/2025 9:30 AM EST Clinical Support [facility]INE [address] [place] [address] 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, RN documented as of this encounter Visit Diagnoses Diagnosis Fibromyalgia Unspecified myalgia and myositis documented in this encounter Additional Health Concerns Assessment Noted Time PHQ-9 Depression Total Score: 8 09/19/19 24 11:07 AM EDT documented as of this encounter Care Teams Database Architect Relationship Specialty Start Date End Date Jessi Dueñas MD 230 [place] [address] PCP - General Family Medicine 11/24/20 Mikayla Bhagat Physical Education ProfessorNuclear Medicine Technician 05/09/23 documented as of this encounter
--- OUTSIDE RECORDS SUMMARY | 2025-03-04 14:38 | XMS_ITS | Encounter Summary ---
Author Organization [employer] Address [address] [place] [address] Care Team Providers Care Councilperson Name Role Phone Jessi Dueñas MD Primary Care Provider [phone] Reason for Visit * Reason Comments Med Refill Encounter Details Date Type Department Care Team ([facility] st Contact Info) Description 03/01/2025 Refill [facility]INE [address] [place] [address] Jessi Dueñas MD [address] [place] [address] Social History Tobacco Use Types Packs/Day Years [...] Description 05/05/2025 9:30 AM EST Clinical Support [address] [phone] 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 RN documented as of this encounter Visit Diagnoses Not on filedocumented in this encounter Additional Health Concerns Assessment Noted Time PHQ-9 Depression Total Score: 24 025 9:47 AM EDT documented as of this encounter Care Teams Councilperson Relationship Specialty Start Date End Date Jessi Dueñas MD 230 [place] [address] PCP - General Family Medicine 11/24/20 Mikayla Bhagat Creasing Machine OperatorDirector Digital Strategy 05/09/23 documented as of this encounter
--- OUTSIDE RECORDS SUMMARY | 2025-03-04 14:38 | XMS_ITS | Encounter Summary ---
Author Organization [employer] Address [address] [place] [address] Care Team Providers Care Lithographing Machine Operator Name Role Phone Jessi Dueñas MD Primary Care Provider [phone] Encounter Details Date Type Department Care Team ([facility] st Contact Info) Description 09/22/2023 Orders Only [facility] MEDICINE [address] [place] [address] Jessi Dueñas MD [address] [place] [address] Social History Tobacco Use Types Packs/Day Years [...] Description 05/05/2025 9:30 AM EST Clinical Support [facility] MEDICINE [address] [place] [address] 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, RN documented as of this encounter Visit Diagnoses Not on filedocumented in this encounter Additional Health Concerns Assessment Noted Time PHQ-9 Depression Total Score: 8 09/19/19 24 11:07 AM EDT documented as of this encounter Care Teams Lithographing Machine Operator Relationship Specialty Start Date End Date Jessi Dueñas MD [address] [place] [address] PCP - General Family Medicine 11/24/20 Mikayla Bhagat Plant PhysiologistAmpoule Filler 05/09/23 documented as of this encounter
--- OUTSIDE RECORDS SUMMARY | 2025-03-04 14:38 | XMS_ITS | Encounter Summary ---
Author Organization [employer] Address [address] [facility] 7t [place] [address] Care Team Providers Care Coding Compliance Manager Name Role Phone Jessi Dueñas MD Primary Care Provider [phone] Reason for Referral * Consultation (Routine) - Closed Specialty Diagnoses / Procedures Referred By Contac t Referred To Contact Physical Therapy Diagnoses Acute bilateral low back pain without sciatica Chronic pain of both knees Bilateral hand pain Jessi Dueñas MD [address] [place] [address] Phone: tel: fax: [facility] [address] Phone: tel: fax: Referral ID Status Reason Start Date Expiration Date V isits Requested Visits Authorized [id number] Closed Specialty Services Required 07/29/2024 07/29/2025 20 20 Encounter Details Date Type Department Care Team (Late st Contact Info) Description 07/26/[address] [facility] MEDICINE [address] [place] [address] Jessi Dueñas MD [address] [place] [address] Acute bilateral low back pain without sciatica [...] 05/05/2025 9:30 AM EST Clinical [address] [facility] 230 [place] [address] 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 RN Scheduled Referrals Name Type [...] as of this encounter Care Teams Coding Compliance Manager Relationship Specialty Start Date End Date Jessi Dueñas MD [address] [place] [address] PCP - General Family Medicine 11/24/20 Mikayla Bhagat Wheel GrinderLandfill Attendant 05/09/23 documented as of this encounter
--- OUTSIDE RECORDS SUMMARY | 2025-03-04 14:38 | XMS_ITS | Encounter Summary ---
Author Organization [employer] Address [address] [facility] 7 [place] [address] Care Team Providers Care President Finance Company Name Role Phone Jessi Dueñas MD Primary Care Provider [phone] Reason for Visit * Reason Comments Med Refill Encounter Details Date Type Department Care Team ([facility] st Contact Info) Description 10/25/2023 Refill [facility] MEDICINE 230 [place] [address] Anita Arriaga MD [address] [place] [address] Social History Tobacco Use Types Packs/Day Years [...] Description 05/05/2025 9:30 AM EST Clinical Support [facility] MEDICINE [address] [place] [address] 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, RN documented as of this encounter Visit Diagnoses Not on filedocumented in this encounter Additional Health Concerns Assessment Noted Time PHQ-9 Depression Total Score: 8 09/19/19 24 11:07 AM EDT documented as of this encounter Care Teams President Finance Company Relationship Specialty Start Date End Date Jessi Dueñas MD 230 [place] [address] PCP - General Family Medicine 11/24/20 Mikayla Bhagat Retirement Plan SpecialistMusic Leader 05/09/23 documented as of this encounter
--- OUTSIDE RECORDS SUMMARY | 2025-03-04 14:38 | XMS_ITS | Encounter Summary ---
Author Organization [employer] Address [address] [address] [place] [address] Care Team Providers Care Power Plant Superintendent Name Role Phone Jessi Dueñas MD Primary Care Provider [phone] Reason for Visit * Reason Comments Med Refill Encounter Details Date Type Department Care Team (Late st Contact Info) Description 09/10/2024 Refill [facility] MEDICINE 230 [place] [address] Jessi Dueñas MD 230 [place] [address] Fibromyalgia Social History Tobacco Use Types Packs/Day [...] Description 05/05/2025 9:30 AM EST Clinical Support [address] [address] 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 RN documented as of this encounter Visit Diagnoses Diagnosis Fibromyalgia Unspecified myalgia and myositis documented in this encounter Additional Health Concerns Assessment Noted Time PHQ-9 Depression Total Score: 24 025 9:47 AM EDT documented as of this encounter Care Teams Power Plant Superintendent Relationship Specialty Start Date End Date Jessi Dueñas MD [address] [place] [address] PCP - General Family Medicine 11/24/20 Mikayla Bhagat Day Treatment Clinician/Art TherapistDesizing Pad Operator 05/09/23 documented as of this encounter
--- OUTSIDE RECORDS SUMMARY | 2025-03-04 14:38 | XMS_ITS | Encounter Summary ---
Author Organization [employer] Address [address] 7t [place] [address] Care Team Providers Care Office Assistance Name Role Phone Jessi Dueñas MD Primary Care Provider Reason for Visit * Reason Onset Date Comments PT-1 08/05/2024 Encounter Details Date Type Department Care Team (Late st Contact Info) Description 08/05/2024 Telephone [facility] MEDICINE 230 [place] [address] Jessi Dueñas MD [address] [place] [address] PT-1 Social History Tobacco Use Types Packs/Day [...] from pt requesting status of PT-[address] [place] [address] Please return call to pt with updates [phone] documented in this encounter Plan of Treatment Upcoming Encounters Date Type Department Care Team (Late st Contact Info) Description 05/05/2025 9:30 AM EST Clinical Support [facility] MEDICINE [address] [place] [address] 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, RN documented as of this encounter Visit Diagnoses Not on filedocumented in this encounter Additional Health Concerns Assessment Noted Time PHQ-9 Depression Total Score: 24 025 9:47 AM EDT documented as of this encounter Care Teams Office Assistance Relationship Specialty Start Date End Date Jessi Dueñas MD [address] [place] [address] PCP - General Family Medicine 11/24/20 Mikayla Bhagat Legal Recovery SpecialistParaffin Plant Operator 05/09/23 documented as of this encounter
--- OUTSIDE RECORDS SUMMARY | 2025-03-04 14:38 | XMS_ITS | Encounter Summary ---
Author Organization [employer] Address [address] 7t [place] [address] Care Team Providers Care Auctioneer Automobile Name Role Phone Jessi Dueñas MD Primary Care Provider [phone] Reason for Visit * Reason Comments Med Refill Encounter Details Date Type Department Care Team (Late st Contact Info) Description 09/10/2024 Refill [facility] MEDICINE [address] [place] [address] Jessi Dueñas MD 230 [place] [address] Fibromyalgia Social History Tobacco Use Types Packs/Day [...] Description 05/05/2025 9:30 AM EST Clinical Support [address] [address] 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 RN documented as of this encounter Visit Diagnoses Diagnosis Fibromyalgia Unspecified myalgia and myositis documented in this encounter Additional Health Concerns Assessment Noted Time PHQ-9 Depression Total Score: 24 025 9:47 AM EDT documented as of this encounter Care Teams Auctioneer Automobile Relationship Specialty Start Date End Date Jessi Dueñas MD 230 [place] [address] PCP - General Family Medicine 11/24/20 Mikayla Bhagat Certified Flight InstructorBench Worker Helper 05/09/23 documented as of this encounter
--- OUTSIDE RECORDS SUMMARY | 2025-03-04 14:38 | XMS_ITS | Encounter Summary ---
Author Organization [employer] Address [address] [place] [address] Care Team Providers Care Sheet Metal Fabricator Name Role Phone Jessi Dueñas MD Primary Care Provider [phone] Encounter Details Date Type Department Care Team (Late st Contact Info) Description 06/14/2024 Orders Only [facility] MEDICINE [address] [place] [address] Jessi Dueñas MD [address] [place] [address] Restless leg syndrome Social History Tobacco Use [...] Description 05/05/2025 9:30 AM EST Clinical Support [facility] MEDICINE [address] [place] [address] 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, RN documented as of this encounter Visit Diagnoses Diagnosis Restless leg syndrome Restless legs syndrome (RLS) documented in this encounter Additional Health Concerns Assessment Noted Time PHQ-9 Depression Total Score: 8 09/19/19 24 11:07 AM EDT documented as of this encounter Care Teams Sheet Metal Fabricator Relationship Specialty Start Date End Date Jessi Dueñas MD 230 [place] [address] PCP - General Family Medicine 11/24/20 Mikayla Bhagat Floral MerchandiserCommodity Loan Clerk 05/09/23 documented as of this encounter
--- OUTSIDE RECORDS SUMMARY | 2025-03-04 14:38 | XMS_ITS | Encounter Summary ---
Author Organization [employer] Address [address] [facility] [address]t [place] [address] Care Team Providers Care Junior [employer] Principal Name Role Phone Jessi Dueñas MD Primary Care Provider [phone] Reason for Visit * Reason Onset Date Comments Med Refill Tramadol refill denied 10/25/2023 Encounter Details Date Type Department Care Team (Late st Contact Info) Description 10/25/2023 Refill [facility] MEDICINE 230 [place] [address] Jessi Dueñas MD 230 [place], [place] [phone] Fibromyalgia Social History Tobacco Use Types Packs/Day [...] can review this. Thank you! TC via P/I#[id number], unable to connect to the number, unable to leave message. Will forward message to PCP's M.A. to schedule a telephone appointment for patient as PCP requested. documented in this encounter Plan of Treatment Upcoming Encounters Date Type Department Care Team (Late st Contact Info) Description 05/05/2025 9:30 AM EST Clinical Support [facility] MEDICINE [address] [place] [address] 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, HERNANDEZ documented as of this encounter Visit Diagnoses Diagnosis Fibromyalgia Unspecified myalgia and myositis documented in this encounter Additional Health Concerns Assessment Noted Time PHQ-9 Depression Total Score: 8 06/18/20 24 11:07 AM EDT documented as of this encounter Care Teams Junior [employer] Principal Relationship Specialty Start Date End Date Jessi Dueñas MD 230 [place] [address] PCP - General Family Medicine 11/24/20 Mikayla Bhagat Lard RendererVendor Management Consultant 05/09/23 documented as of this encounter
== END 2025-03-04 13:11 | disposition home or self-care (01) ==
LOC: HO.HOS 12:41
PROVIDERS: PCP General Practice; Visit Provider Orthopaedic Surgery
DX: M17.12 Unilateral primary osteoarthritis, left knee (principal); M25.562 Pain in left knee
CPT/HCPCS: 20610; 99213

== ENCOUNTER → 2025-03-04 12:40 | Outpatient (BNVA) | payer MEDICAID, SELFPAY | PROVIDERS: PCP General Practice; Visit Provider Orthopaedic Surgery | DX: M17.12 Unilateral primary osteoarthritis, left knee (principal); M25.562 Pain in left knee | CPT/HCPCS: 20610; 99212; J1010; J2003 ==